=== PATIENT | female | born 1985 | race Caucasian/White ===

== ENCOUNTER 2017-12-29 09:38 | Emergency (ER) | payer SELFPAY ==
[2017-12-29] MEDS ORDERED: ONDANSETRON 4 MG/2 ML VIAL ONE ×2 (10:59→11:48)
[2017-12-29] MEDS ORDERED: MORPHINE 4 MG/ML SYR ONE (10:59)
[2017-12-29] MEDS ORDERED: NA CHLORIDE 0.9% 1,000 ML ONE (10:59)
[2017-12-29 11:03] LABS: Urine Blood NEGATIVE (NEG); Urine Glucose NEGATIVE (NEG); Urine Protein NEGATIVE (NEG)
[2017-12-29 11:24] LABS: Absolute Lymphocytes (CBC) 1.8 K/uL (0.7-4.9); Absolute Monocytes 0.5 K/uL (0.1-1.3); Absolute Neutrophil 6.7 K/uL (1.8-8.0); Basophils % 0.5 % (0-1.3); Eosinophils % 1.5 % (0-4.4); Hematocrit 43.5 % (36.0-45.0); Lymphocytes % 19.4 % (15.3-44.8); MCH 30.4 pg (27.0-35.0); MCV 89.8 fL (80-100); MPV 8.4 fL (7.6-11.3); Monocytes % 5.4 % (3.3-12.3); RBC Red Blood Cell Count 4.85 M/uL (3.86-4.86)
[2017-12-29 11:46] LABS: ALT/SGPT 23 U/L (12-78); AST/SGOT 15 U/L (15-37); Albumin 4.1 g/dL (3.4-5.0); Alkaline Phosphatase 58 U/L (45-117); Amylase Level 38 U/L (25-115); BUN Blood Urea Nitrogen 15 mg/dL (7-18); Bicarbonate 29 mmol/L (21-32); Bilirubin Direct 0.1 mg/dL (0-0.2); Bilirubin Total 0.5 mg/dL (0.2-1.0); Glucose Level 101 mg/dL (74-106); Lipase 53 U/L (73-393); Potassium 4.2 mmol/L (3.5-5.1); Sodium Level 139 mmol/L (136-145)
[2017-12-29] MEDS ORDERED: KETOROLAC 30 MG/ML INJ ONE (11:48)
[2017-12-29] MEDS ORDERED: HYDROMORPHONE HCL 1 MG/ML INJ ONE ×2 (11:48→12:25)
--- NOTE | 2017-12-29 12:08 | RAD REPORT ---
EXAM DESCRIPTION: US - Transvaginal Study Probe - 12/29/2017 11:59 am CLINICAL HISTORY: ABD PAIN Pelvic pain. COMPARISON: Transvaginal Study Probe dated 08/24/2016 FINDINGS: The uterus is normal in size, shape and echotexture. The uterus measures 8.8 x 5.8 x 4.6 c m. The endometrial stripe measures 10 mm, normal. Both ovaries are normal in size, shape and echotexture. The right ovary measures 2.9 x 2.3 x 2.3 cm. The left ovary measures 4.1 x 3.7 x 3.4 cm. Circumscribed left ovarian lesion is present with low-l evel internal echoes measuring 3.2 x 3.0 cm, probably a hemorrhagic cyst or endometrioma. No adnexal masses. Normal Doppler blood flow was demonstrated to both ovaries. No significant pelvic ascites. IMPRESSION: 3.2 x 3.0 cm left ovarian cyst versus endometrioma.
--- NOTE | 2017-12-29 12:09 | ER ---
Nurse's Notes [facility] Name: Felicia York Age: 32 yrs Sex: Female : 1985 Arrival Date: 12/29/2017 Time: 09:40 Bed 7 Private MD: Josh Juarez H Diagnosis: Abdominal tenderness;Other and unspecified ovarian cysts-left hemorrhagic Presentation: 12/29 09:45 Presenting complaint: Patient states: lower abd pain started Friday. Hx of sv endometriosis. c/o nausea. Reports taking her Tramadol yesterday with no relief. Transition of care: patient was not received from another setting of care. Onset of symptoms was December 27, 2017. Risk Assessment: Do you want to hurt yourself or someone else? Patient reports no desire to harm self or others. Initial Sepsis Screen: Does the patient meet any 2 criteria? No. Patient's initial sepsis screen is negative. Does the patient have a suspected source of infection? No. Patient's initial sepsis screen is negative. Care prior to arrival: None. 09:45 Method Of Arrival: Ambulatory sv 09:45 Acuity: COMPA 3 sv Triage Assessment: 09:45 General: Appears uncomfortable, well groomed, well developed, Behavior is calm, sv cooperative, appropriate for age. Pain: Complains of pain in abdomen and left lower quadrant and right lower quadrant and suprapubic area Pain currently is 7 out of 10 on a pain scale. Pain began Friday Is continuous, Current management is with tramadol. EENT: No signs and/or symptoms were reported regarding the EENT system. Neuro: Level of Consciousness is awake, alert, obeys commands, Oriented to person, place, time, situation, Moves all extremities. Full function Gait is steady. Cardiovascular: Patient's skin is warm and dry. Respiratory: Respiratory effort is even, unlabored, Respiratory pattern is regular, symmetrical. GI: Abdomen is flat, non-distended, Abd is soft X 4 quads Abdomen is tender to palpation in suprapubic area, right lower quadrant and left lower quadrant. Derm: Skin is normal. 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 - Social history:: Smoking status: Patient uses tobacco products, smokes one-half pack cigarettes per day, Patient uses alcohol, but reports only rare drinking. Patient/guardian denies using street drugs, IV drugs. - Ebola Screening: : No symptoms or risks identified at this time. - Family history:: not pertinent. Screenin:03 Abuse screen: Denies threats or abuse. Denies injuries from another. Nutritional sv screening: No deficits noted. Tuberculosis screening: No symptoms or risk factors identified. Fall Risk None identified. Assessment: 11:05 Reassessment: Patient appears in no apparent distress at this time. No changes from sv previously documented assessment. Patient and/or family updated on plan of care and expected duration. Pain level reassessed. Patient is alert, oriented x 3, equal unlabored respirations, skin warm/dry/pink. 11:45 Reassessment: Patient appears in no apparent distress at this time. No changes from sv previously documented assessment. Patient and/or family updated on plan of care and expected duration. Pain level reassessed. Patient is alert, oriented x 3, equal unlabored respirations, skin warm/dry/pink. 13:00 Reassessment: Patient appears in no apparent distress at this time. No changes from sv previously documented assessment. Patient and/or family updated on plan of care and expected duration. Pain level reassessed. Patient is alert, oriented x 3, equal unlabored respirations, skin warm/dry/pink. Vital Signs: 10:02 BP 154 / 96; Pulse 94; Resp 18; Temp 98.7; Pulse Ox 100% ; Weight 95.25 kg; Height 5 sv ft. 8 in. (172.72 cm); Pain 7/10; 11:17 BP 139 / 99; Pulse 105; Resp 20; Pulse Ox 100% ; Pain 7/10; sv 11:45 Pain 7/10; sv 12:00 BP 141 / 98; Pulse 87; Resp 18; Pulse Ox 100% ; sv 10:02 Body Mass Index 31.93 (95.25 kg, 172.72 cm) sv ED Course: 09:40 Patient arrived in ED. sb2 09:40 Josh Juarez DO is Private Physician. sb2 09:45 Arm band placed on right wrist. sv 09:45 Patient has correct armband on for positive identification. Bed in low position. Call sv light in reach. Pulse ox on. NIBP on. Door closed. Head of bed elevated. 09:59 See Rosario MD is Attending Physician. haydee 09:59 Em Bustos, AMI is Primary Nurse. sv 10:01 Triage completed. sv 10:56 Patient taken to ultrasound. aa4 11:05 Initial lab(s) drawn, by me, sent to lab. Inserted saline lock: 20 gauge in right sv antecubital area, using aseptic technique. Blood collected. Flushed right antecubital with 5 ml normal saline. 11:44 Ultrasound completed. aa4 11:59 US Transvaginal Study (Probe) In Process Unspecified. EDMS 12:08 Josh Juarez DO is Referral Physician. haydee 12:08 Sudha Kahn MD is Referral Physician. haydee 13:43 No provider procedures requiring assistance completed. IV discontinued, intact, ss bleeding controlled, No redness/swelling at site. Pressure dressing applied. Administered Medications: 11:06 Drug: Zofran 4 mg Route: IVP; Site: right antecubital; sv 11:45 Follow up: Response: No adverse reaction sv 11:06 Drug: NS 0.9% 1000 ml Route: IV; Rate: 1 bolus; Site: right antecubital; sv 12:00 Follow up: Response: No adverse reaction; IV Status: Completed infusion; IV Intake: sv 1000ml 11:08 Drug: morphine 4 mg Route: IVP; Site: right antecubital; sv 11:45 Follow up: Pain 7/10 Adult; Response: No adverse reaction sv 11:48 Drug: Zofran 4 mg Route: IVP; Site: right antecubital; sv 12:00 Follow up: Response: No adverse reaction sv 11:50 Drug: Dilaudid 1 mg Route: IVP; Site: right antecubital; sv 12:00 Follow up: Response: No adverse reaction sv 11:52 Drug: TORadol 30 mg Route: IVP; Site: right antecubital; sv 12:00 Follow up: Response: No adverse reaction sv 12:25 Drug: Dilaudid 1 mg Route: IVP; Site: right antecubital; sv 12:45 Follow up: Response: No adverse reaction sv Intake: 12:00 IV: 1000ml; Total: 1000ml. sv Outcome: 12:08 Discharge ordered by . haydee 13:43 Discharged to home ambulatory. ss 13:43 Condition: good 13:43 Discharge instructions given to patient, Instructed on discharge instructions, follow up and referral plans. medication usage, Demonstrated understanding of instructions, follow-up care, medications, Prescriptions given X 3. 13:44 Patient left the ED. ss Signatures: Dispatcher [employer] Em Sher, RN RN See Garduno MD MD cha Frazier, Amanda aa4 Madiha Mata RN RN ss Cherelle Sanchez sb2 Corrections: (The following items were deleted from the chart) 11:15 10:04 Inserted saline lock: 20 gauge in right antecubital area, using aseptic sv technique. ,using aseptic technique. done by Paco mccollum Blood collected. sv
--- NOTE | 2017-12-29 12:09 | EDPHYS ---
Physician Documentation [facility] Name: Felicia York Age: 32 yrs Sex: Female : 1985 Arrival Date: 12/29/2017 Time: 09:40 Bed 7 Private MD: Josh Juarez H ED Physician See Rosario HPI: 12/29 10:54 This 32 yrs old Female presents to ER via Ambulatory with complaints of haydee Abdominal Pain. 10:54 The patient presents with abdominal pain in the lower abdomen. Onset: The haydee symptoms/episode began/occurred just prior to arrival. The patient presents with pelvic pain, that is located in/on the suprapubic area, right lower quadrant and left lower quadrant. Onset: The symptoms/episode began/occurred this morning. Modifying factors: The symptoms are alleviated by nothing, the symptoms are aggravated by nothing. Associated signs and symptoms: The patient has no apparent associated signs or symptoms. Severity of symptoms: At their worst the symptoms were moderate, in the emergency department the symptoms are unchanged. 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 - Social history:: Smoking status: Patient uses tobacco products, smokes one-half pack cigarettes per day, Patient uses alcohol, but reports only rare drinking. Patient/guardian denies using street drugs, IV drugs. - Ebola Screening: : No symptoms or risks identified at this time. - Family history:: not pertinent. ROS: 10:54 Constitutional: Negative for fever, chills, and weight loss, Eyes: Negative for injury, haydee pain, redness, and discharge, ENT: Negative for injury, pain, and discharge, Neck: Negative for injury, pain, and swelling, Cardiovascular: Negative for chest pain, palpitations, and edema, Respiratory: Negative for shortness of breath, cough, wheezing, and pleuritic chest pain, Back: Negative for injury and pain, : Negative for injury, bleeding, discharge, and swelling, MS/Extremity: Negative for injury and deformity, Skin: Negative for injury, rash, and discoloration, Neuro: Negative for headache, weakness, numbness, tingling, and seizure. 10:54 Abdomen/GI: Positive for abdominal pain, of the suprapubic area, right lower quadrant and left lower quadrant. Exam: 10:54 Constitutional: This is a well developed, well nourished patient who is awake, alert, haydee and in no acute distress. Head/Face: Normocephalic, atraumatic. Eyes: Pupils equal round and reactive to light, extra-ocular motions intact. Lids and lashes normal. Conjunctiva and sclera are non-icteric and not injected. Cornea within normal limits. Periorbital areas with no swelling, redness, or edema. ENT: Nares patent. No nasal discharge, no septal abnormalities noted. Tympanic membranes are normal and external auditory canals are clear. Oropharynx with no redness, swelling, or masses, exudates, or evidence of obstruction, uvula midline. Mucous membranes moist. Neck: Trachea midline, no thyromegaly or masses palpated, and no cervical lymphadenopathy. Supple, full range of motion without nuchal rigidity, or vertebral point tenderness. No Meningismus. Chest/axilla: Normal chest wall appearance and motion. Nontender with no deformity. No lesions are appreciated. Cardiovascular: Regular rate and rhythm with a normal S1 and S2. No gallops, murmurs, or rubs. Normal PMI, no JVD. No pulse deficits. Respiratory: Lungs have equal breath sounds bilaterally, clear to auscultation and percussion. No rales, rhonchi or wheezes noted. No increased work of breathing, no retractions or nasal flaring. Back: No spinal tenderness. No costovertebral tenderness. Full range of motion. Female : Normal external genitalia. Skin: Warm, dry with normal turgor. Normal color with no rashes, no lesions, and no evidence of cellulitis. MS/ Extremity: Pulses equal, no cyanosis. Neurovascular intact. Full, normal range of motion. Neuro: Awake and alert, GCS 15, oriented to person, place, time, and situation. Cranial nerves II-XII grossly intact. Motor strength 5/5 in all extremities. Sensory grossly intact. Cerebellar exam normal. Normal gait. Psych: Awake, alert, with orientation to person, place and time. Behavior, mood, and affect are within normal limits. 10:54 Abdomen/GI: Inspection: distension, Bowel sounds: normal, Palpation: moderate abdominal tenderness, in the suprapubic area, right lower quadrant and left lower quadrant. Vital Signs: 10:02 BP 154 / 96; Pulse 94; Resp 18; Temp 98.7; Pulse Ox 100% ; Weight 95.25 kg; Height 5 sv ft. 8 in. (172.72 cm); Pain 7/10; 11:17 BP 139 / 99; Pulse 105; Resp 20; Pulse Ox 100% ; Pain 7/10; sv 11:45 Pain 7/10; sv 12:00 BP 141 / 98; Pulse 87; Resp 18; Pulse Ox 100% ; sv 10:02 Body Mass Index 31.93 (95.25 kg, 172.72 cm) sv MDM: 09:59 Patient medically screened. [facility] 10:56 Data reviewed: vital signs, nurses notes, lab test result(s), radiologic studies, haydee ultrasound. 12/29 10:54 Order name: Amylase, Serum; Complete Time: 12:07 [facility] 12/29 10:54 Order name: Basic Metabolic Panel; Complete Time: 12:07 [facility] 12/29 10:54 Order name: CBC with Diff; Complete Time: 12:07 [facility] 12/29 10:54 Order name: Creatinine for Radiology; Complete Time: 12:07 [facility] 12/29 10:54 Order name: Hepatic Function; Complete Time: 12:07 [facility] 12/29 10:54 Order name: Lipase; Complete Time: 12:07 [facility] 12/29 10:54 Order name: Urine Microscopic Only 12/29 10:54 Order name: US Transvaginal Study (Probe) [facility] 12/29 10:56 Order name: Urine Dipstick--Ancillary (enter results); Complete Time: 11:43 ag 12/29 10:56 Order name: Urine --Ancillary (enter results); Complete Time: 11:43 ag 12/29 10:54 Order name: Urine Test (obtain specimen); Complete Time: 10:55 [facility] 12/29 10:54 Order name: IV Saline Lock; Complete Time: 11:14 [facility] 12/29 10:54 Order name: Labs collected and sent; Complete Time: 11:14 [facility] 12/29 10:54 Order name: Urine Dipstick-Ancillary (obtain specimen); Complete Time: 10:55 haydee Administered Medications: 11:06 Drug: Zofran 4 mg Route: IVP; Site: right antecubital; sv 11:45 Follow up: Response: No adverse reaction sv 11:06 Drug: NS 0.9% 1000 ml Route: IV; Rate: 1 bolus; Site: right antecubital; sv 12:00 Follow up: Response: No adverse reaction; IV Status: Completed infusion; IV Intake: sv 1000ml 11:08 Drug: morphine 4 mg Route: IVP; Site: right antecubital; sv 11:45 Follow up: Pain 7/10 Adult; Response: No adverse reaction sv 11:48 Drug: Zofran 4 mg Route: IVP; Site: right antecubital; sv 12:00 Follow up: Response: No adverse reaction sv 11:50 Drug: Dilaudid 1 mg Route: IVP; Site: right antecubital; sv 12:00 Follow up: Response: No adverse reaction sv 11:52 Drug: TORadol 30 mg Route: IVP; Site: right antecubital; sv 12:00 Follow up: Response: No adverse reaction sv 12:25 Drug: Dilaudid 1 mg Route: IVP; Site: right antecubital; sv 12:45 Follow up: Response: No adverse reaction sv Disposition: 12/29/17 12:08 Discharged to Home. Impression: Abdominal tenderness, Other and unspecified ovarian cysts - left hemorrhagic. - Condition is Stable. - Discharge Instructions: Abdominal Pain, Adult, Ovarian Cyst, Abdominal Pain, Adult, [id number], Ovarian Cyst, [id number]. - Prescriptions for Ibuprofen 600 mg Oral Tablet - take 1 tablet by ORAL route every 6 hours As needed take with food; 25 tablet. Tylenol- Codeine #3 300-30 mg Oral Tablet - take 2 tablet by ORAL route every 6 hours As needed; 30 tablet. Zofran 4 mg Oral Tablet - take 1 tablet by ORAL route every 12 hours As needed; 12 tablet. - Medication Reconciliation Form, Thank You Letter, Antibiotic Education, Prescription Opioid Use, Work release form form. - Follow up: Josh Juarez; When: 2 - 3 days; Reason: Recheck today's complaints, Continuance of care, Re-evaluation by your physician. Follow up: Sudha Kahn; When: 2 - 3 days; Reason: Recheck today's complaints, Continuance of care, Re-evaluation by your physician. - Problem is new. - Symptoms have improved. Signatures: Dispatcher [employer] Em Sher, RN RN See Garduno MD MD cha Smirch, Shelby, RN RN ss Corrections: (The following items were deleted from the chart) 13:44 12:08 12/29/2017 12:08 Discharged to Home. Impression: Abdominal tenderness; Other and ss unspecified ovarian cysts - left hemorrhagic. Condition is Stable. Discharge Instructions: Abdominal Pain, Adult, Ovarian Cyst, Abdominal Pain, Adult, [id number], Ovarian Cyst, [id number]. Prescriptions for Ibuprofen 600 mg Oral Tablet - take 1 tablet by ORAL route every 6 hours As needed take with food; 25 tablet, Tylenol-Codeine #3 300-30 mg Oral Tablet - take 2 tablet by ORAL route every 6 hours As needed; 30 tablet. and Forms are Medication Reconciliation Form, Thank You Letter, Antibiotic Education, Prescription Opioid Use. Follow up: Josh Juarez; When: 2 - 3 days; Reason: Recheck today's complaints, Continuance of care, Re-evaluation by your physician. Follow up: Sudha Kahn; When: 2 - 3 days; Reason: Recheck today's complaints, Continuance of care, Re-evaluation by your physician. Problem is new. Symptoms have improved. haydee
[2017-12-29 13:24] LABS: Urine Bacteria <20 /HPF (<20); Urine Culture Reflex Order NOT NEEDED; Urine RBC <5 /HPF (NONE SEEN)
[2017-12-29 14:02] VITALS: TEMP 98.7; O2SAT 100
[2017-12-29 14:06] VITALS: BP 141/98
== END 2017-12-29 13:44 | disposition home or self-care (01) ==
LOC: ER 09:38
DX: R10.9 Unspecified abdominal pain (principal); N83.202 Unspecified ovarian cyst, left side; F17.210 Nicotine dependence, cigarettes, uncomplicated
CPT/HCPCS: 36415; 76830; 80048; 80076; 81003; 81015; 81025; 82150; 83690; 85025; 96361; 96374; 96375; 99284; J1170; J2405; J7030

== ENCOUNTER 2018-01-13 21:13 | Emergency (ER) | payer SELFPAY ==
[2018-01-13 22:18] LABS: Urine Blood TRACE (NEG); Urine Glucose NEGATIVE (NEG); Urine Protein 1+ (NEG); Urine Specific Gravity >1.030 (1.005-1.030)
[2018-01-13] MEDS ORDERED: ONDANSETRON 4 MG/2 ML VIAL ONE (22:19)
[2018-01-13] MEDS ORDERED: MORPHINE 4 MG/ML SYR ONE (22:19)
[2018-01-13 22:35] LABS: Absolute Lymphocytes (CBC) 2.6 K/uL (0.7-4.9); Absolute Monocytes 0.5 K/uL (0.1-1.3); Absolute Neutrophil 6.5 K/uL (1.8-8.0); Basophils % 0.6 % (0-1.3); Eosinophils % 2.2 % (0-4.4); Hematocrit 45.6 % (36.0-45.0); Lymphocytes % 26.3 % (15.3-44.8); MCH 30.9 pg (27.0-35.0); MCV 90.5 fL (80-100); Monocytes % 5.4 % (3.3-12.3); RBC Red Blood Cell Count 5.03 M/uL (3.86-4.86)
[2018-01-13 22:55] LABS: Albumin 4.2 g/dL (3.4-5.0); Bilirubin Direct 0.1 mg/dL (0-0.2); Bilirubin Total 0.5 mg/dL (0.2-1.0); Potassium 3.7 mmol/L (3.5-5.1); Protein, Total 8.3 g/dL (6.4-8.2)
[2018-01-13] MEDS ORDERED: KETOROLAC 30 MG/ML INJ ONE (22:57)
[2018-01-13 23:08] LABS: Urine Amorphous Sediment TRACE /HPF (NONE SEEN); Urine Bacteria >50 /HPF (<20); Urine Culture Reflex Order NOT NEEDED; Urine Mucus HEAVY /HPF (NONE SEEN); Urine RBC <5 /HPF (NONE SEEN)
--- NOTE | 2018-01-14 00:11 | EDPHYS ---
Physician Documentation [facility] Name: Felicia York Age: 32 yrs Sex: Female : 1985 Arrival Date: 01/13/2018 Time: 21:14 Bed 25 Private MD: Josh Juarez H ED Physician See Rosario HPI: 01/13 21:26 This 32 yrs old Female presents to ER via Ambulatory with complaints of Cyst. jmm 21:26 The patient presents with pelvic pain. Onset: The symptoms/episode began/occurred jmm gradually, 2 week(s) ago. Associated signs and symptoms: Pertinent negatives: fever. This is a 32 year old female with a history of endometriosis that presents to the with pelvic pain, worse on the left. Patient was diagnosed with an ovarian cyst 2 weeks ago and states the symptoms have worsened. 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 - Social history:: Smoking status: Patient/guardian denies using tobacco. - Ebola Screening: : No symptoms or risks identified at this time. ROS: 22:20 Constitutional: Negative for fever, chills, and weight loss, Cardiovascular: Negative jm for chest pain, palpitations, and edema, Respiratory: Negative for shortness of breath, cough, wheezing, and pleuritic chest pain, Abdomen/GI: Negative for abdominal pain, nausea, vomiting, diarrhea, and constipation. 22:20 Back: Positive for pain at rest, radiated pain. 22:20 : Positive for urinary symptoms, pelvic pain. 22:20 All other systems are negative. Exam: 22:20 Head/Face: atraumatic. Chest/axilla: Normal chest wall appearance and motion. jm Cardiovascular: Regular rate and rhythm. No edema appreciated Respiratory: Normal respirations, no respiratory distress appreciated 22:20 Constitutional: The patient appears alert, awake, anxious, uncomfortable. 22:20 Abdomen/GI: Inspection: abdomen appears normal, Bowel sounds: normal, Palpation: soft, mild abdominal tenderness, in the suprapubic area. 22:20 Back: ROM is normal, CVA tenderness, is absent, is noted bilaterally. 22:20 Skin: Appearance: Color: normal in color. 22:20 Neuro: Orientation: is normal, Mentation: is normal, Memory: is normal. 22:20 Psych: Behavior/mood is pleasant, cooperative, anxious. Vital Signs: 21:27 BP 149 / 100; Pulse 88; Resp 16; Temp 97.6; Pulse Ox 99% on R/A; Weight 95.71 kg; kr2 Height 5 ft. 8 in. (172.72 cm); Pain 6/10; 23:02 BP 150 / 96; Pulse 95; Resp 20; Pulse Ox 100% on R/A; fc 01/14 00:19 BP 148 / 92; Pulse 92; Resp 16; Pulse Ox 100% on R/A; kr2 01/13 21:27 Body Mass Index 32.08 (95.71 kg, 172.72 cm) [facility] MDM: 01/13 21:26 Patient medically screened. [facility] 01/14 00:09 Data reviewed: vital signs, nurses notes, lab test result(s), radiologic studies, [facility] ultrasound. Counseling: I had a detailed discussion with the patient and/or guardian regarding: the historical points, exam findings, and any diagnostic results supporting the discharge/admit diagnosis, the presence of at least one elevated blood pressure reading (>120/80) during this emergency department visit, lab results, radiology results, the need for outpatient follow up, to return to the emergency department if symptoms worsen or persist or if there are any questions or concerns that arise at home. 01/13 21:57 Order name: Urine Dipstick--Ancillary (enter results); Complete Time: 22:36 [facility] 01/13 21:57 Order name: Urine --Ancillary (enter results); Complete Time: 22:36 [facility] 01/13 22:12 Order name: Amylase, Serum; Complete Time: 22:56 [facility] 01/13 22:12 Order name: Basic Metabolic Panel; Complete Time: 22:56 [facility] 01/13 22:12 Order name: CBC with Diff; Complete Time: 22:37 [facility] 01/13 22:12 Order name: Creatinine for Radiology; Complete Time: 22:56 [facility] 01/13 22:12 Order name: Hepatic Function; Complete Time: 22:56 [facility] 01/13 22:12 Order name: Lipase; Complete Time: 22:56 [facility] 01/13 22:12 Order name: Urine Microscopic Only; Complete Time: 23:29 [facility] 01/13 22:14 Order name: Transvaginal Study Probe [facility] 01/13 22:12 Order name: Urine Test (obtain specimen); Complete Time: 22:16 [facility] 01/13 22:12 Order name: IV Saline Lock; Complete Time: 22:24 [facility] 01/13 22:12 Order name: Labs collected and sent; Complete Time: 22:24 [facility] 01/13 22:12 Order name: Urine Dipstick-Ancillary (obtain specimen); Complete Time: 22:16 [facility] Administered Medications: 01/13 22:22 Drug: Zofran 4 mg Route: IVP; Site: left forearm; kr2 23:00 Follow up: Response: No adverse reaction kr2 22:24 Drug: morphine 4 mg Route: IVP; Site: left forearm; 2 01/14 00:05 Follow up: Response: No adverse reaction; Pain is decreased [facility] 01/13 22:55 Drug: TORadol 30 mg Route: IVP; Site: left antecubital; 01/14 00:06 Follow up: Response: No adverse reaction; Pain is unchanged, physician notified 2 01/13 23:02 CANCELLED (Duplicate Order): Ketorolac 30 mg IVP once 01/14 00:11 Drug: morphine 4 mg Route: IM; Site: left deltoid; kr2 00:18 Follow up: Response: No adverse reaction kr2 Disposition: 06:39 Co-signature as Attending Physician, See Rosario MD I agree with the assessment and haydee plan of care. Disposition: 01/14/18 00:10 Discharged to Home. Impression: Urinary tract infection, site not specified, pelvic pain. - Condition is Stable. - Discharge Instructions: Pelvic Pain, Female, Urinary Tract Infection, Adult. - Prescriptions for Ultracet 37.5- 325 mg Oral Tablet - take 1 tablet by ORAL route every 6 hours - for up to 5 days; do not exceed 8 tablets per day.; 20 tablet. Cipro 500 mg Oral Tablet - take 1 tablet by ORAL route every 12 hours for 7 days; 20 tablet. - Medication Reconciliation Form, Thank You Letter, Antibiotic Education, Prescription Opioid Use form. - Follow up: Ann, DO Josh; When: 2 - 3 days; Reason: Recheck today's complaints, Continuance of care, Re-evaluation by your physician. Signatures: Dispatcher [employer] EDMS See Rosario MD MD cha Mickail, Joel, PA PA jmm Chretien, Felicia, RN RN Faye Miramontes RN RN kr2 Corrections: (The following items were deleted from the chart) 01/13 22:14 22:12 Pelvis Complete+US.RAD.BRZ ordered. [facility] 23:02 22:51 Ketorolac 30 mg IVP once ordered. dmitriy 01/14 00:20 00:10 01/14/2018 00:10 Discharged to Home. Impression: Urinary tract infection, site kr2 not specified; pelvic pain. Condition is Stable. Forms are Medication Reconciliation Form, Thank You Letter, Antibiotic Education, Prescription Opioid Use. Follow up: Josh Juarez; When: 2 - 3 days; Reason: Recheck today's complaints, Continuance of care, Re-evaluation by your physician. dmitriy
--- NOTE | 2018-01-14 00:11 | ER ---
Nurse's Notes [facility] Name: Felicia York Age: 32 yrs Sex: Female : 1985 Arrival Date: 01/13/2018 Time: 21:14 Bed 25 Private MD: Josh Juarez H Diagnosis: Urinary tract infection, site not specified;pelvic pain Presentation: 01/13 21:25 Presenting complaint: Patient states: I was seen here 2 weeks ago and have an ovarian kr2 cyst. The pain has continually gotten worse and I am having problems urinating along with low back pain. Transition of care: patient was not received from another setting of care. Onset of symptoms was December 30, 2017. Risk Assessment: Do you want to hurt yourself or someone else? Patient reports no desire to harm self or others. Initial Sepsis Screen: Does the patient meet any 2 criteria? No. Patient's initial sepsis screen is negative. Does the patient have a suspected source of infection? No. Patient's initial sepsis screen is negative. Care prior to arrival: None. 21:25 Method Of Arrival: Ambulatory kr2 21:25 Acuity: COMPA 3 kr2 Triage Assessment: 21:32 General: Appears in no apparent distress. uncomfortable, well groomed, well developed, kr2 well nourished, Behavior is cooperative, appropriate for age, restless. Pain: Complains of pain in left femoral area, suprapubic area and left inguinal area Pain currently is 10 out of 10 on a pain scale. Quality of pain is described as aching, pressure, tender, Is continuous, Alleviated by nothing. 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 - Social history:: Smoking status: Patient/guardian denies using tobacco. - Ebola Screening: : No symptoms or risks identified at this time. Screenin:32 Abuse screen: Denies threats or abuse. Denies injuries from another. Nutritional kr2 screening: No deficits noted. Tuberculosis screening: No symptoms or risk factors identified. Fall Risk None identified. Assessment: 21:34 General: Appears in no apparent distress. uncomfortable, Behavior is cooperative, kr2 appropriate for age, restless. Pain: Complains of pain in see triage assessment. Neuro: Level of Consciousness is awake, alert, obeys commands, Oriented to person, place, time, situation. Cardiovascular: Capillary refill < 3 seconds in bilateral fingers Patient's skin is warm and dry. Respiratory: Airway is patent Respiratory effort is even, unlabored, Respiratory pattern is regular, symmetrical. GI: Abdomen is flat, non-distended, Reports bloating. : Reports urinary frequency. EENT: Oral mucosa is moist. Derm: Skin is intact, is healthy with good turgor, Skin is pink, warm \T\ dry. Musculoskeletal: Circulation, motion, and sensation intact. 22:51 Reassessment: Pt complaining of pain after having ultrasound. Discussed with Sudhakar JUARES and pt to get Toradol IV. 01/14 00:19 Reassessment: Patient appears in no apparent distress at this time. Patient and/or kr2 family updated on plan of care and expected duration. Pain level reassessed. Patient is alert/active/playful, equal unlabored respirations, skin warm/dry/pink. Patient states feeling better. Vital Signs: 01/13 21:27 BP 149 / 100; Pulse 88; Resp 16; Temp 97.6; Pulse Ox 99% on R/A; Weight 95.71 kg; kr2 Height 5 ft. 8 in. (172.72 cm); Pain 6/10; 23:02 BP 150 / 96; Pulse 95; Resp 20; Pulse Ox 100% on R/A; fc 01/14 00:19 BP 148 / 92; Pulse 92; Resp 16; Pulse Ox 100% on R/A; kr2 01/13 21:27 Body Mass Index 32.08 (95.71 kg, 172.72 cm) kr2 ED Course: 01/13 21:14 Patient arrived in ED. es 21:14 Josh Juarez DO is Private Physician. es 21:24 Sudhakar Pryor PA is PHCP. [facility] 21:24 See Rosario MD is Attending Physician. [facility] 21:25 Faye España, RN is Primary Nurse. kr2 21:27 Triage completed. kr2 21:32 Arm band placed on. kr2 21:33 Patient has correct armband on for positive identification. Bed in low position. Call kr2 light in reach. Side rails up X 1. Pulse ox on. NIBP on. Door closed. Head of bed elevated. 22:15 Patient taken to ultrasound. via wheelchair. aa4 22:15 Inserted saline lock: 20 gauge in left antecubital area, using aseptic technique. Blood jp3 collected. 22:20 Initial lab(s) drawn, by me, sent to lab. Urine collected: clean catch specimen, clear, jp3 edgar colored. 22:28 Urine Microscopic Only Sent. jp3 22:28 Amylase, Serum Sent. jp3 22:28 Basic Metabolic Panel Sent. jp3 22:28 CBC with Diff Sent. jp3 22:28 Creatinine for Radiology Sent. jp3 22:28 Hepatic Function Sent. jp3 22:28 Lipase Sent. jp3 22:34 Ultrasound completed. Patient tolerated well. Patient moved back from ultrasound. aa4 22:35 Transvaginal Study Probe In Process Unspecified. EDMS 23:02 IV discontinued, intact, bleeding controlled, No redness/swelling at site. Pressure fc dressing applied, swollen after being flushed. 01/14 00:09 Josh Juarez DO is Referral Physician. [facility] 00:18 No provider procedures requiring assistance completed. kr2 Administered Medications: 01/13 22:22 Drug: Zofran 4 mg Route: IVP; Site: left forearm; kr2 23:00 Follow up: Response: No adverse reaction kr2 22:24 Drug: morphine 4 mg Route: IVP; Site: left forearm; kr2 01/14 00:05 Follow up: Response: No adverse reaction; Pain is decreased kr2 01/13 22:55 Drug: TORadol 30 mg Route: IVP; Site: left antecubital; 01/14 00:06 Follow up: Response: No adverse reaction; Pain is unchanged, physician notified kr2 01/13 23:02 CANCELLED (Duplicate Order): Ketorolac 30 mg IVP once 01/14 00:11 Drug: morphine 4 mg Route: IM; Site: left deltoid; kr2 00:18 Follow up: Response: No adverse reaction kr2 Outcome: 00:10 Discharge ordered by MD. izaguirre 00:18 Discharged to home ambulatory, with friend. kr2 00:18 Condition: good 00:18 Discharge instructions given to patient, Instructed on discharge instructions, follow up and referral plans. medication usage, Demonstrated understanding of instructions, follow-up care, medications, Prescriptions given X 2. 00:20 Patient left the ED. kr2 Signatures: Dispatcher [employer] EDMS Sudhakar Pryor PA PA jmm Salyer, Edna es Chretien, Felicia RN RN Leann Chaidez aa4 Faye España RN RN kr2 Khurram Reyes jp3 Corrections: (The following items were deleted from the chart) 00:06 08/07 23:00 Response: No adverse reaction; Pain is decreased kr2 kr2 [id number] 00:20 00:18 Discharged to home ambulatory, kr2 kr2 00:20 00:18 Discharge instructions given to patient, Instructed on discharge instructions, kr2 follow up and referral plans. medication usage, Demonstrated understanding of instructions, follow-up care, medications, Prescriptions given X 2, kr2
[2018-01-14] MEDS ORDERED: MORPHINE 4 MG/ML SYR ONE (00:12)
[2018-01-14 00:23] VITALS: TEMP 97.6
[2018-01-14 00:24] VITALS: O2SAT 100
[2018-01-14 00:26] VITALS: BP 148/92
--- NOTE | 2018-01-14 08:30 | RAD REPORT ---
EXAM DESCRIPTION: US - Transvaginal Study Probe - 01/13/2018 10:35 pm CLINICAL HISTORY: Pelvic pain Preliminary findings provided at the time of the study COMPARISON: December 29, 2017 TECHNIQUE: Endovaginal sonography was performed. FINDINGS: Endometrium is 6- 7 mm with no mass, polyp or abnormal fluid collection. Endometrium-myome trium interface is preserved. No myometrial masses are identified. Uterus is approximately 8.5 x 4.2 x 4.7 cm. 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 No right ovary or right adnexal abnormality. Right ovary is 3.2 x 1.8 x 2.6 cm. Left ovary is 3.4 x 2.1 x 2.2 cm. A 15 x 11 mm hypoechoic oval-shaped mass is present in the left ova ry. This is believed to be the remnant of the hemorrhagic cyst seen December 29. No progressive left ov prince or left adnexal finding. No free fluid seen. Doppler evaluation shows normal blood flow in the ovarian stroma. IMPRESSION: 15 millimeter remnant hemorrhagic cyst decreased from the December 29 study. No new or progressive uterine, ovarian or adnexal finding.
== END 2018-01-14 00:20 | disposition home or self-care (01) ==
LOC: ER 21:13
DX: N39.0 Urinary tract infection, site not specified (principal)
CPT/HCPCS: 36415; 76830; 80048; 80076; 81003; 81015; 81025; 82150; 83690; 85025; 96372; 99284; J2405

== ENCOUNTER 2018-06-23 08:16 | Emergency (ER) | payer SELFPAY ==
[2018-06-23] MEDS ORDERED: LIDOCAINE 1% W/EPI 1:100,000 MDV 50 ML VIAL ONE (08:40)
[2018-06-23] MEDS ORDERED: TETANUS & DIPHTHERIA TOX,ADULT 0.5 ML VIAL ONE (08:41)
--- NOTE | 2018-06-23 09:09 | ER ---
Nurse's Notes [facility] Name: Felicia York Age: 32 yrs Sex: Female : 1985 Arrival Date: 06/23/2018 Time: 08:19 Bed 15 Private MD: Josh Juarez H Diagnosis: Laceration without foreign body of scalp;Tetanus prophylaxis Presentation: 06/23 08:26 Presenting complaint: Patient states: i hit my head on a baby gate and had lacerated, hj happened Friday, i think its more than 30 hours now; visible laceration on forehead about less than 2 inches; reports headache;. Transition of care: patient was not received from another setting of care. Complicating Factors: There are no complicating factors for this patient. Onset of symptoms was May 21, 2018. Risk Assessment: Do you want to hurt yourself or someone else? Patient reports no desire to harm self or others. Initial Sepsis Screen: Does the patient meet any 2 criteria? No. Patient's initial sepsis screen is negative. Does the patient have a suspected source of infection? No. Patient's initial sepsis screen is negative. Care prior to arrival: None. 08:26 Method Of Arrival: Ambulatory 08:26 Acuity: COMPA 4 hj Triage Assessment: 08:32 General: Appears in no apparent distress. uncomfortable, Behavior is calm, cooperative, hj appropriate for age. Pain: Complains of pain in forehead. Injury Description: Laceration sustained to forehead is clean, 0.5 to 2.5 cm long, not bleeding, was sustained 12-24 hours ago. is bleeding no active bleeding noted. 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 - Social history:: Smoking status: Patient uses tobacco products, Patient uses alcohol. - Ebola Screening: : Patient negative for fever greater than or equal to 101.5 degrees Fahrenheit, and additional compatible Ebola Virus Disease symptoms Patient denies exposure to infectious person Patient denies travel to an Ebola-affected area in the 21 days before illness onset. Screenin:33 Abuse screen: Denies threats or abuse. Denies injuries from another. Nutritional hj screening: No deficits noted. Tuberculosis screening: No symptoms or risk factors identified. Fall Risk None identified. Assessment: 08:33 Musculoskeletal: No signs and/or symptoms reported regarding the musculoskeletal hj system. Injury Description: Laceration. 08:35 Reassessment: provider in room for lac repair;. hj Vital Signs: 08:34 BP 125 / 86; Pulse 65; Resp 18; Temp 98.1(TE); Pulse Ox 100% on R/A; Weight 90.26 kg; hj Height 5 ft. 9 in. (175.26 cm); Pain 5/10; 08:34 Body Mass Index 29.39 (90.26 kg, 175.26 cm) hj ED Course: 08:19 Patient arrived in ED. mr 08:19 Josh Juarez DO is Private Physician. mr 08:24 Maik Patino MD is Attending Physician. ps1 08:25 Yao Posada RN is Primary Nurse. hj 08:28 Triage completed. hj 08:33 Arm band placed on right wrist. hj 08:35 Patient has correct armband on for positive identification. Bed in low position. Call hj light in reach. Side rails up X 1. 09:08 Josh Juarez DO is Referral Physician. ps1 09:15 No provider procedures requiring assistance completed. Patient did not have IV access hj during this emergency room visit. Administered Medications: 09:00 Drug: Tetanus-Diphtheria Toxoid Adult 0.5 ml {Sound Person: [employer]. Exp: 07/23/2020. Lot #: [id number]. } Route: IM; Site: left deltoid; 09:00 Follow up: Response: No adverse reaction hj Outcome: 09:09 Discharge ordered by . ps1 09:16 Discharged to home ambulatory. hj 09:16 Condition: stable 09:16 Discharge instructions given to patient, Instructed on discharge instructions, follow up and referral plans. wound care, Demonstrated understanding of instructions, follow-up care, wound care. 09:16 Patient left the ED. Signatures: Jillian Wang mr Yao Posada RN RN Patino, Maik, MD MD ps1
--- NOTE | 2018-06-23 09:09 | EDPHYS ---
Physician Documentation [facility] Name: Felicia York Age: 32 yrs Sex: Female : 1985 Arrival Date: 06/23/2018 Time: 08:19 Bed 15 Private MD: Josh Juarez H ED Physician Maik Patino HPI: 06/23 09:02 This 32 yrs old Female presents to ER via Ambulatory with complaints of ps1 Laceration To Head. 09:02 patient was out with friends approx 28 hours [employer]. Fell and hit her head. No MSK ps1 complaints at this time. Wound still appears fresh and localized to front scalp. Tetanus not UTD. Pain rated as mild. 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 - Social history:: Smoking status: Patient uses tobacco products, Patient uses alcohol. - Ebola Screening: : Patient negative for fever greater than or equal to 101.5 degrees Fahrenheit, and additional compatible Ebola Virus Disease symptoms Patient denies exposure to infectious person Patient denies travel to an Ebola-affected area in the 21 days before illness onset. ROS: 09:02 Constitutional: Negative for fever, chills, and weight loss, Eyes: Negative for injury, ps1 pain, redness, and discharge, ENT: Negative for injury, pain, and discharge, Cardiovascular: Negative for chest pain, palpitations, and edema, Respiratory: Negative for shortness of breath, cough, wheezing, and pleuritic chest pain, Abdomen/GI: Negative for abdominal pain, nausea, vomiting, diarrhea, and constipation, MS/Extremity: Negative for injury and deformity, Neuro: Negative for headache, weakness, numbness, tingling, and seizure, Psych: Negative for depression, anxiety, suicide ideation, homicidal ideation, and hallucinations. 09:02 Skin: Positive for laceration(s), of the forehead. Exam: 09:02 Constitutional: This is a well developed, well nourished patient who is awake, alert, ps1 and in no acute distress. Eyes: Pupils equal round and reactive to light, extra-ocular motions intact. Lids and lashes normal. Conjunctiva and sclera are non-icteric and not injected. ENT: Nares patent. No nasal discharge, no septal abnormalities noted. Tympanic membranes are normal and external auditory canals are clear. Oropharynx with no redness, swelling, or masses, exudates, or evidence of obstruction, uvula midline. Mucous membranes moist. Chest/axilla: Normal chest wall appearance and motion. Nontender with no deformity. No lesions are appreciated. Cardiovascular: Regular rate and rhythm. No gallops, murmurs, or rubs. Normal PMI, no JVD. No pulse deficits. Respiratory: Lungs have equal breath sounds bilaterally, clear to auscultation and percussion. No rales, rhonchi or wheezes noted. No increased work of breathing, no retractions or nasal flaring. Abdomen/GI: Soft, non-tender, with normal bowel sounds. No distension or tympany. No guarding or rebound. No evidence of tenderness throughout. Skin: Warm, dry with normal turgor. Normal color with no rashes, no lesions, and no evidence of cellulitis. MS/ Extremity: Pulses equal, no cyanosis. Neurovascular intact. Full, normal range of motion. Neuro: Awake and alert, GCS 15, oriented to person, place, time, and situation. Cranial nerves II-XII grossly intact. Sensory grossly intact. 09:02 Head/face: Noted is a laceration(s), that is linear, 2 cm(s), of the forehead. Vital Signs: 08:34 BP 125 / 86; Pulse 65; Resp 18; Temp 98.1(TE); Pulse Ox 100% on R/A; Weight 90.26 kg; hj Height 5 ft. 9 in. (175.26 cm); Pain 5/10; 08:34 Body Mass Index 29.39 (90.26 kg, 175.26 cm) hj Laceration: 09:02 Wound Repair of 2cm ( 0.8in ) subcutaneous laceration to forehead. Distal ps1 neuro/vascular/tendon intact. Anesthesia: Local anesthetic administered with 4 mls of 1% lidocaine w/ Epi. Wound prep: Moderate cleansing with hibiclenz, Wound debrided moderately. Skin closed with 3 5-0 Prolene using simple sutures and sterile technique. Dressed with Neosporin. Patient tolerated well. MDM: 09:02 Data reviewed: vital signs, nurses notes, and as a result, I will discharge patient. ps1 09:09 Patient medically screened. ps1 Administered Medications: 09:00 Drug: Tetanus-Diphtheria Toxoid Adult 0.5 ml {Residential Care Officer: [employer]. Exp: 07/23/2020. Lot #: [id number]. } Route: IM; Site: left deltoid; 09:00 Follow up: Response: No adverse reaction hj Disposition: 06/23/18 09:09 Discharged to Home. Impression: Laceration without foreign body of scalp, Tetanus prophylaxis. - Condition is Stable. - Discharge Instructions: Stitches, Dina, or Adhesive Wound Closure. - Medication Reconciliation Form, Thank You Letter, Antibiotic Education, Prescription Opioid Use form. - Follow up: Josh Juarez DO; When: 7 - 10 days; Reason: Wound Recheck, Recheck today's complaints, Staple/Suture removal, Re-evaluation by your physician. Follow up: Emergency Department; When: As needed; Reason: Fever > 102 F, Worsening of condition. - Problem is new. - Symptoms have improved. Signatures: Yao Posada RN RN hj Singer, Phillip, MD MD ps1 Corrections: (The following items were deleted from the chart) 09:16 09:09 06/23/2018 09:09 Discharged to Home. Impression: Laceration without foreign body hj of scalp; Tetanus prophylaxis. Condition is Stable. Forms are Medication Reconciliation Form, Thank You Letter, Antibiotic Education, Prescription Opioid Use. Follow up: Josh Juarez; When: 7 - 10 days; Reason: Wound Recheck, Recheck today's complaints, Staple/Suture removal, Re-evaluation by your physician. Follow up: Emergency Department; When: As needed; Reason: Fever > 102 F, Worsening of condition. Problem is new. Symptoms have improved. ps1
[2018-06-23 09:35] VITALS: BP 125/86; TEMP 98.1; O2SAT 100
== END 2018-06-23 09:16 | disposition home or self-care (01) ==
LOC: ER 08:16
PROC: 0JQ10ZZ Repair Face Subcutaneous Tissue and Fascia, Open Approach (ICD-10-PCS; principal; 2018-06-23)
DX: S01.81XA Laceration without foreign body of other part of head, initial encounter (principal); W19.XXXA Unspecified fall, initial encounter; Z23 Encounter for immunization; Z72.0 Tobacco use
CPT/HCPCS: 90714; 99283

== ENCOUNTER 2018-07-19 14:44 | Emergency (ER) | payer SELFPAY ==
[2018-07-19 16:23] LABS: Absolute Lymphocytes (CBC) 2.5 K/uL (0.7-4.9); Absolute Monocytes 0.5 K/uL (0.1-1.3); Absolute Neutrophil 2.8 K/uL (1.8-8.0); Basophils % 1.1 % (0-1.3); Eosinophils % 4.2 % (0-4.4); Hematocrit 40.2 % (36.0-45.0); Lymphocytes % 40.4 % (15.3-44.8); MPV 8.4 fL (7.6-11.3); RBC Red Blood Cell Count 4.41 M/uL (3.86-4.86)
[2018-07-19] MEDS ORDERED: MORPHINE 4 MG/ML SYR ONE (16:28)
[2018-07-19 16:31] LABS: Urine Bacteria 20-50 /HPF (<20); Urine Culture Reflex Order REFLEXED; Urine RBC <5 /HPF (NONE SEEN)
[2018-07-19 16:48] LABS: Albumin 3.7 g/dL (3.4-5.0); Bilirubin Direct 0.1 mg/dL (0-0.2); Bilirubin Total 0.4 mg/dL (0.2-1.0); Potassium 3.8 mmol/L (3.5-5.1)
[2018-07-19] MEDS ORDERED: ONDANSETRON 4 MG/2 ML VIAL ONE ×2 (16:52→16:58)
[2018-07-19 16:53] LABS: Urine Blood NEGATIVE (NEG); Urine Glucose NEGATIVE (NEG); Urine Protein NEGATIVE (NEG); Urine Specific Gravity >1.030 (1.005-1.030)
[2018-07-19] MEDS ORDERED: HYDROMORPHONE HCL 1 MG/ML INJ ONE (18:03)
--- NOTE | 2018-07-19 19:40 | RAD REPORT ---
EXAM DESCRIPTION: CT - Abdomen Pelvis W Contrast - 07/19/2018 7:18 pm CLINICAL HISTORY: Abdominal pain, abdominal cramping, rectal bleeding COMPARISON: CT imaging August 2016 TECHNIQUE: Biphasic, helical CT imaging of the abdomen and pelvis was performed following 100 ml non -ionic IV contrast. Oral contrast was given. All CT scans are performed using dose optimization technique as appropriate and may include automated exposure control or mA/KV adjustment according to patient size. FINDINGS: No suspicious findings in the lung bases. The liver, spleen, and pancreas show no suspicious findings. Gallbladder and biliary tree are also wi thout suspicious finding. Symmetric renal function is seen with no hydronephrosis or suspicious renal mass. No pyelonephritis o r acute parenchymal process. Urinary bladder is fully contracted limiting assessment. Uterus and ovar ies show no suspicious findings. No adrenal abnormalities. No dilated bowel loops or bowel wall thickening. Appendectomy clips are present. Moderate stool volum e throughout the colon. No active colon process seen. No endometrioma or other mass identifiable. No free air, free fluid or inflammatory stranding. No hernia, mass or bulky lymphadenopathy. No suspicious bony findings. IMPRESSION: Contrast enhanced CT abdomen and pelvis showing no significant or suspicious finding. Patient does have prominent stool volume throughout the colon but no acute colon process.
--- NOTE | 2018-07-19 20:15 | ER ---
Nurse's Notes [facility] Name: Felicia York Age: 32 yrs Sex: Female : 1985 Arrival Date: 07/19/2018 Time: 14:45 Bed 5 Private MD: Josh Juarez H Diagnosis: Gastrointestinal hemorrhage, unspecified-rectal Presentation: 07/19 15:21 Presenting complaint: Patient states: Lower abdominal cramping and bright red rectal hb bleeding today. Transition of care: patient was not received from another setting of care. Onset of symptoms. Risk Assessment: Do you want to hurt yourself or someone else? Patient reports no desire to harm self or others. Care prior to arrival: None. 15:21 Method Of Arrival: Ambulatory hb 15:21 Acuity: COMPA 3 hb Historical: - Allergies: 15:25 No Known Allergies; hb - Home Meds: 16:02 phentermine Oral once daily [Active]; Tramadol Oral [Active]; sg - PMHx: 16:02 Endometriosis; sg - PSHx: 16:02 ; D \T\ C; sg - Immunization history:: Adult Immunizations up to date. - Social history:: Smoking status: Patient uses tobacco products, smokes one-half pack cigarettes per day. - Ebola Screening: : No symptoms or risks identified at this time. - Family history:: not pertinent. - Hospitalizations: : No recent hospitalization is reported. Screenin:40 Abuse screen: Denies threats or abuse. Denies injuries from another. Nutritional sg screening: No deficits noted. Tuberculosis screening: No symptoms or risk factors identified. Never had TB. Fall Risk None identified. Assessment: 15:40 General: Appears in no apparent distress. uncomfortable, well groomed, well developed, sg well nourished, Behavior is calm, cooperative, appropriate for age. Pain: Complains of pain in left lower quadrant and right lower quadrant and suprapubic area Quality of pain is described as aching, tender. Neuro: Level of Consciousness is awake, alert, obeys commands, Speech is normal, Facial symmetry appears normal. Cardiovascular: Patient's skin is warm and dry. Chest pain is denied. Respiratory: Airway is patent Respiratory effort is even, unlabored, Respiratory pattern is regular, symmetrical, Breath sounds are clear. GI: Bowel sounds present X 4 quads. Abd is soft and non tender X 4 quads. GI: Reports lower abdominal pain, rectal bleeding, bloody stool. : No signs and/or symptoms were reported regarding the genitourinary system. EENT: No signs and/or symptoms were reported regarding the EENT system. Derm: Skin is pink, warm \T\ dry. Musculoskeletal: No signs and/or symptoms reported regarding the musculoskeletal system. 20:11 Reassessment: Patient appears in no apparent distress at this time. No changes from ed1 previously documented assessment. Patient and/or family updated on plan of care and expected duration. Pain level reassessed. Patient is alert, oriented x 3, equal unlabored respirations, skin warm/dry/pink. Patient states symptoms have not improved. Vital Signs: 15:25 BP 118 / 76; Pulse 84; Resp 16; Temp 98.1; Pulse Ox 100% on R/A; Pain 7/10; hb 18:20 BP 137 / 72; Pulse 79; Resp 18; Pulse Ox 96% ; sv 20:11 BP 130 / 65; Pulse 71; Resp 18; Pulse Ox 100% on R/A; Pain 7/10; ed1 ED Course: 14:45 Patient arrived in ED. sb2 14:46 Josh Juarez DO is Private Physician. sb2 15:21 Arm band placed on. hb 15:25 Triage completed. hb 15:33 Jarrell Aamto MD is Attending Physician. rn 15:55 Faustino Saucedo, RN is Primary Nurse. sg 16:00 Initial lab(s) drawn, by fl, sent to lab. Inserted saline lock: 20 gauge in right sv antecubital area, using aseptic technique. Blood collected. Flushed right antecubital with 5 ml normal saline. 19:10 Primary Nurse role handed off by Faustino Saucedo, AMI ed1 19:10 Janay Aguilar, AMI is Primary Nurse. ed1 19:19 CT Abd/Pelvis - W/Contrast In Process Unspecified. EDMS 19:19 CT completed. Patient tolerated procedure well. Patient moved back from CT. vr 19:49 Attending Physician role handed off by Jarrell Amato MD haydee 19:49 See Rosario MD is Attending Physician. haydee 20:11 Patient has correct armband on for positive identification. Placed in gown. Bed in low ed1 position. Call light in reach. Side rails up X2. 20:11 Served as a circulation representative during rectal exam. ed1 20:13 Josh Juarez DO is Referral Physician. haydee 20:14 Shannon Sosa MD is Referral Physician. haydee 20:14 Greta Zheng MD is Referral Physician. haydee 20:56 IV discontinued, intact, bleeding controlled, No redness/swelling at site. Pressure ed1 dressing applied. Administered Medications: 16:25 Drug: morphine 4 mg Route: IVP; Site: right antecubital; sg 16:50 Follow up: Response: No adverse reaction; Pain is unchanged, physician notified sg 16:50 Drug: Zofran 4 mg Route: IVP; Site: right antecubital; sg 17:00 Follow up: Response: No adverse reaction sv 18:00 Drug: Dilaudid 1 mg Route: IVP; Site: right antecubital; sg 18:45 Follow up: Response: No adverse reaction; Pain is decreased sg 20:50 Drug: Dilaudid 0.5 mg Route: IVP; Site: right antecubital; ed1 20:51 Follow up: Response: Medication administered at discharge. ed1 20:51 Drug: Cipro 500 mg Route: PO; ed1 20:51 Follow up: Response: Medication administered at discharge. ed1 Outcome: 20:14 Discharge ordered by . [facility] 20:56 Discharged to home ambulatory, with family. ed1 20:56 Condition: good 20:56 Discharge instructions given to patient, Instructed on discharge instructions, follow up and referral plans. medication usage, Demonstrated understanding of instructions, follow-up care, medications, Prescriptions given X 3. 20:57 Patient left the ED. ed1 Signatures: Dispatcher [employer] EDEm Padron RN RN sv Gay, Steven, RN RN sg Anderson, Corey, MD MD cha Nieto, Roman, MD MD rn Riggs, Erika, RN RN ed1 Ivelisse Do Heather, RN RN Cherelle Sanchez sb2
--- NOTE | 2018-07-19 20:15 | EDPHYS ---
Physician Documentation [facility] Name: Felicia York Age: 32 yrs Sex: Female : 1985 Arrival Date: 07/19/2018 Time: 14:45 Bed 5 Private MD: Josh Juarez H ED Physician See Rosario HPI: 07/19 15:47 This 32 yrs old Female presents to ER via Ambulatory with complaints of rn Rectal Bleeding, Abdominal Pain. 15:47 The patient presents to the emergency department with bleeding from the rectum/anus, rn that is mild. 15:47 Onset: The symptoms/episode began/occurred today. Modifying factors: The symptoms are rn alleviated by nothing, The symptoms are aggravated by bowel movement. Associate signs and symptoms: Pertinent positives: abdominal pain in the suprapubic area, right lower quadrant and left lower quadrant. The patient has not experienced similar symptoms in the past. The patient has not recently seen a physician. Historical: - Allergies: 15:25 No Known Allergies; hb - Home Meds: 16:02 phentermine Oral once daily [Active]; Tramadol Oral [Active]; sg - PMHx: 16:02 Endometriosis; sg - PSHx: 16:02 ; D \T\ C; sg - Immunization history:: Adult Immunizations up to date. - Social history:: Smoking status: Patient uses tobacco products, smokes one-half pack cigarettes per day. - Ebola Screening: : No symptoms or risks identified at this time. - Family history:: not pertinent. - Hospitalizations: : No recent hospitalization is reported. ROS: 15:47 Constitutional: Negative for fever, chills, and weight loss, Eyes: Negative for injury, rn pain, redness, and discharge, Neck: Negative for injury, pain, and swelling, Cardiovascular: Negative for chest pain, palpitations, and edema, Respiratory: Negative for shortness of breath, cough, wheezing, and pleuritic chest pain, Abdomen/GI: + lower abd pain and rectal bleeding MS/Extremity: Negative for injury and deformity, Skin: Negative for injury, rash, and discoloration, Neuro: Negative for headache, weakness, numbness, tingling, and seizure. Exam: 15:47 Constitutional: This is a well developed, well nourished patient who is awake, alert, rn and in no acute distress. Head/Face: Normocephalic, atraumatic. Cardiovascular: Regular rate and rhythm with a normal S1 and S2. No gallops, murmurs, or rubs. Normal PMI, no JVD. No pulse deficits. Respiratory: Lungs have equal breath sounds bilaterally, clear to auscultation and percussion. No rales, rhonchi or wheezes noted. No increased work of breathing, no retractions or nasal flaring. Abdomen/GI: + lower abd tenderness, no rebound Skin: Warm, dry with normal turgor. Normal color with no rashes, no lesions, and no evidence of cellulitis. MS/ Extremity: Pulses equal, no cyanosis. Neurovascular intact. Full, normal range of motion. Equal circumference. Neuro: Awake and alert, GCS 15, oriented to person, place, time, and situation. Cranial nerves II-XII grossly intact. Motor strength 5/5 in all extremities. Sensory grossly intact. Cerebellar exam normal. Normal gait. 20:12 Abdomen/GI: Rectal exam: is unremarkable, hemorrhoid(s), are not appreciated, no haydee fissure, no gross bleeing. Vital Signs: 15:25 BP 118 / 76; Pulse 84; Resp 16; Temp 98.1; Pulse Ox 100% on R/A; Pain 7/10; hb 18:20 BP 137 / 72; Pulse 79; Resp 18; Pulse Ox 96% ; sv 20:11 BP 130 / 65; Pulse 71; Resp 18; Pulse Ox 100% on R/A; Pain 7/10; ed1 MDM: 15:33 Patient medically screened. rn 19:05 Transition of care: After a detail discussion of the patient's case, care is rn transferred to See Rosario MD. 20:13 Data reviewed: vital signs, nurses notes, lab test result(s), radiologic studies, CT haydee scan. 07/19 15:38 Order name: Basic Metabolic Panel; Complete Time: 17:47 rn 07/19 15:38 Order name: CBC with Diff; Complete Time: 17:47 rn 07/19 15:38 Order name: Hepatic Function; Complete Time: 17:47 rn 07/19 15:38 Order name: Lipase; Complete Time: 17:47 rn 07/19 15:39 Order name: Urine Microscopic Only; Complete Time: 17:47 rn 07/19 15:52 Order name: Urine Dipstick--Ancillary (enter results); Complete Time: 17:47 em1 07/19 15:38 Order name: CT Abd/Pelvis - W/Contrast; Complete Time: 20:04 rn 07/19 15:52 Order name: Urine --Ancillary (enter results); Complete Time: 17:47 em1 07/19 16:32 Order name: Urine Culture [facility] 07/19 15:38 Order name: IV Saline Lock; Complete Time: 16:12 rn 07/19 15:38 Order name: Labs collected and sent; Complete Time: 16:12 rn 07/19 15:39 Order name: Urine Test (obtain specimen); Complete Time: 15:50 rn 07/19 15:39 Order name: Urine Dipstick-Ancillary (obtain specimen); Complete Time: 15:50 rn Administered Medications: 16:25 Drug: morphine 4 mg Route: IVP; Site: right antecubital; sg 16:50 Follow up: Response: No adverse reaction; Pain is unchanged, physician notified sg 16:50 Drug: Zofran 4 mg Route: IVP; Site: right antecubital; sg 17:00 Follow up: Response: No adverse reaction sv 18:00 Drug: Dilaudid 1 mg Route: IVP; Site: right antecubital; sg 18:45 Follow up: Response: No adverse reaction; Pain is decreased sg 20:50 Drug: Dilaudid 0.5 mg Route: IVP; Site: right antecubital; ed1 20:51 Follow up: Response: Medication administered at discharge. ed1 20:51 Drug: Cipro 500 mg Route: PO; ed1 20:51 Follow up: Response: Medication administered at discharge. ed1 Disposition: 07/19/18 20:14 Discharged to Home. Impression: Gastrointestinal hemorrhage, unspecified - rectal. - Condition is Stable. - Discharge Instructions: Gastrointestinal Bleeding, Rectal Bleeding, Rectal Bleeding, [id number]. - Prescriptions for Bentyl 20 mg Oral Tablet - take 1 tablet by ORAL route every 6 hours As needed; 20 tablet. Colace 100 mg Oral Tablet - take 1 tablet by ORAL route every 12 hours; 14 tablet. Cipro 500 mg Oral Tablet - take 1 tablet by ORAL route every 12 hours for 7 days; 14 tablet. - Medication Reconciliation Form, Thank You Letter, Antibiotic Education, Prescription Opioid Use, Work release form form. - Follow up: Josh Juarez DO; When: 2 - 3 days; Reason: Recheck today's complaints, Continuance of care, Re-evaluation by your physician. Follow up: Shannon Sosa MD; When: 2 - 3 days; Reason: Recheck today's complaints, Continuance of care, Re-evaluation by your physician. Follow up: Greta Zheng MD; When: 2 - 3 days; Reason: Recheck today's complaints, Re-evaluation by your physician. - Problem is new. - Symptoms have improved. Signatures: Dispatcher [employer] EDMS Faustino Saucedo, RN RN sg See Rosario MD MD cha Nieto, Roman, MD MD rn Riggs, Erika, RN RN ed1 Melba Gilbert RN RN Em Bustos RN Corrections: (The following items were deleted from the chart) 20:57 20:14 07/19/2018 20:14 Discharged to Home. Impression: Gastrointestinal hemorrhage, ed1 unspecified - rectal. Condition is Stable. Forms are Medication Reconciliation Form, Thank You Letter, Antibiotic Education, Prescription Opioid Use. Follow up: Josh Juarez; When: 2 - 3 days; Reason: Recheck today's complaints, Continuance of care, Re-evaluation by your physician. Follow up: Shannon Sosa; When: 2 - 3 days; Reason: Recheck today's complaints, Continuance of care, Re-evaluation by your physician. Follow up: Greta Zheng; When: 2 - 3 days; Reason: Recheck today's complaints, Re-evaluation by your physician. Problem is new. Symptoms have improved. haydee
[2018-07-19] MEDS ORDERED: CIPROFLOXACIN HCL 500 MG TAB ONE (20:46)
[2018-07-19] MEDS ORDERED: HYDROMORPHONE HCL 0.5 MG/0.5 ML INJ ONE (20:46)
[2018-07-19 21:08] VITALS: TEMP 98.1
[2018-07-19 21:11] VITALS: BP 130/65; O2SAT 100
== END 2018-07-19 20:57 | disposition home or self-care (01) ==
LOC: ER 14:44
DX: K62.5 Hemorrhage of anus and rectum (principal); F17.210 Nicotine dependence, cigarettes, uncomplicated
CPT/HCPCS: 36415; 74177; 80048; 80076; 81003; 81015; 81025; 83690; 85025; 87086; 87088; 96374; 96375; 99284; J1170; J2405; Q9967

== ENCOUNTER 2018-07-21 09:28 | Emergency (ER) | payer SELFPAY ==
[2018-07-21 10:33] LABS: Absolute Lymphocytes (CBC) 1.7 K/uL (0.7-4.9); Absolute Monocytes 0.8 K/uL (0.1-1.3); Absolute Neutrophil 8.9 K/uL (1.8-8.0); Basophils % 0.5 % (0-1.3); Eosinophils % 1.6 % (0-4.4); Hematocrit 38.9 % (36.0-45.0); Lymphocytes % 14.9 % (15.3-44.8); MPV 8.2 fL (7.6-11.3); Monocytes % 6.5 % (3.3-12.3); RBC Red Blood Cell Count 4.24 M/uL (3.86-4.86)
[2018-07-21 10:52] LABS: BUN Blood Urea Nitrogen 15 mg/dL (7-18); Bicarbonate 30 mmol/L (21-32); Glucose Level 91 mg/dL (74-106); Sodium Level 141 mmol/L (136-145)
--- NOTE | 2018-07-21 11:28 | EDPHYS ---
Physician Documentation [facility] Name: Felicia York Age: 32 yrs Sex: Female : 1985 Arrival Date: 07/21/2018 Time: 09:31 Bed 23 Private MD: Josh Juarez H ED Physician Jarrell Amato HPI: 07/21 11:29 This 32 yrs old Female presents to ER via Ambulatory with complaints of jr8 Rectal Bleeding. 11:29 The patient presents to the emergency department with bleeding from the rectum/anus, jr8 that is mild. Onset: The symptoms/episode began/occurred acutely, 3 day(s) ago. Context: the patient has no known special context relating to the rectal area complaint(s). Modifying factors: The symptoms are alleviated by nothing, The symptoms are aggravated by bowel movement. Associate signs and symptoms: The patient has no apparent associated signs or symptoms. The patient has not experienced similar symptoms in the past. The patient has been recently seen by a physician:. Patient seen two days ago for lower abdominal pain and rectal bleeding. No acute findings intra-abdominally. Had UTI and constipation noted. Was started on medications. Came back today for continued rectal bleeding. Had digitally tried to disimpact herself . 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 - Social history:: Smoking status: Patient uses tobacco products, smokes one pack cigarettes per day. - Ebola Screening: : No symptoms or risks identified at this time. ROS: 11:29 Eyes: Negative for injury, pain, redness, and discharge, ENT: Negative for injury, jr8 pain, and discharge, Neck: Negative for injury, pain, and swelling, Cardiovascular: Negative for chest pain, palpitations, and edema, Respiratory: Negative for shortness of breath, cough, wheezing, and pleuritic chest pain, Back: Negative for injury and pain, MS/Extremity: Negative for injury and deformity, Skin: Negative for injury, rash, and discoloration, Neuro: Negative for headache, weakness, numbness, tingling, and seizure. 11:29 Abdomen/GI: Positive for constipation, rectal bleeding, Negative for abdominal pain, nausea, vomiting, and diarrhea, abdominal distension, anorexia, dysphagia, hematemesis, black/tarry stool, rectal pain, bowel incontinence, flatulence. Exam: 11:29 Eyes: Pupils equal round and reactive to light, extra-ocular motions intact. Lids and jr8 lashes normal. Conjunctiva and sclera are non-icteric and not injected. Cornea within normal limits. Periorbital areas with no swelling, redness, or edema. ENT: Nares patent. No nasal discharge, no septal abnormalities noted. Tympanic membranes are normal and external auditory canals are clear. Oropharynx with no redness, swelling, or masses, exudates, or evidence of obstruction, uvula midline. Mucous membranes moist. Neck: Trachea midline, no thyromegaly or masses palpated, and no cervical lymphadenopathy. Supple, full range of motion without nuchal rigidity, or vertebral point tenderness. No Meningismus. Cardiovascular: Regular rate and rhythm with a normal S1 and S2. No gallops, murmurs, or rubs. Normal PMI, no JVD. No pulse deficits. Respiratory: Lungs have equal breath sounds bilaterally, clear to auscultation and percussion. No rales, rhonchi or wheezes noted. No increased work of breathing, no retractions or nasal flaring. Back: No spinal tenderness. No costovertebral tenderness. Full range of motion. Skin: Warm, dry with normal turgor. Normal color with no rashes, no lesions, and no evidence of cellulitis. MS/ Extremity: Pulses equal, no cyanosis. Neurovascular intact. Full, normal range of motion. Neuro: Awake and alert, GCS 15, oriented to person, place, time, and situation. Cranial nerves II-XII grossly intact. Motor strength 5/5 in all extremities. Sensory grossly intact. Cerebellar exam normal. Normal gait. 11:29 Abdomen/GI: Inspection: abdomen appears normal, Bowel sounds: active, all quadrants, Palpation: soft, in all quadrants, Rectal exam: rectal tone normal, Stool: brown, guaiac positive, pink tinged stool noted, hemorrhoid(s), are not appreciated, mass, is not appreciated, tenderness, is not appreciated, fecal impaction, is not appreciated, the exam is chaperoned by the nurse, Indicators: McBurney's point is not tender, Aivles's sign is negative, Rovsing's sign is negative, Liver: tenderness, is not appreciated. Vital Signs: 09:45 BP 156 / 89; Pulse 91; Resp 16; Temp 97.8; Pulse Ox 99% on R/A; Pain 9/10; hb 10:09 Weight 90.26 kg; Height 5 ft. 9 in. (175.26 cm); aj 11:46 BP 145 / 85; Pulse 85; Resp 19; Pulse Ox 99% on R/A; aj 10:09 Body Mass Index 29.39 (90.26 kg, 175.26 cm) aj MDM: 09:51 Patient medically screened. jr8 11:26 Data reviewed: vital signs, nurses notes, old medical records, lab test result(s), and jr8 as a result, I will discharge patient. Data interpreted: Pulse oximetry: on room air is 99 %. Interpretation: normal. 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 11:29 ED course: Discussed with patient that I reviewed everything from two days ago along jr8 with today. No acute change noted. No gross rectal bleeding. Recommended Miralax and to see GI for colonoscopy at this point. If worse to come back. Patient is good with this plan. 07/21 10:02 Order name: CBC with Diff; Complete Time: 10:36 jr8 07/21 10:02 Order name: Basic Metabolic Panel; Complete Time: 11:11 jr8 07/21 10:02 Order name: IV; Complete Time: 10:27 jr8 07/21 11:34 Order name: Guiac eb Administered Medications: No medications were administered Disposition: 18:19 Co-signature as Attending Physician, Jarrell Amato MD. rn Disposition: 07/21/18 11:26 Discharged to Home. Impression: Gastrointestinal hemorrhage, unspecified. - Condition is Stable. - Discharge Instructions: Gastrointestinal Bleeding, Rectal Bleeding. - Medication Reconciliation Form, Thank You Letter, Antibiotic Education, Prescription Opioid Use form. - Follow up: Steve Cordova MD; When: 2 - 3 days; Reason: Recheck today's complaints, Continuance of care, Re-evaluation by your physician. - Problem is new. - Symptoms have improved. - Notes: Miralax once a day Signatures: Dispatcher [employer] EDLeann Vitale RN RN aj Nieto, Roman, MD MD rn Roszak, Josh, PA PA jr8 Melba Gilbert RN RN Corrections: (The following items were deleted from the chart) 11:48 11:26 07/21/2018 11:26 Discharged to Home. Impression: Gastrointestinal hemorrhage, aj unspecified. Condition is Stable. Forms are Medication Reconciliation Form, Thank You Letter, Antibiotic Education, Prescription Opioid Use. Follow up: Steve Cordova; When: 2 - 3 days; Reason: Recheck today's complaints, Continuance of care, Re-evaluation by your physician. Problem is new. Symptoms have improved. jr8
--- NOTE | 2018-07-21 11:28 | ER ---
Nurse's Notes [facility] Name: Felicia York Age: 32 yrs Sex: Female : 1985 Arrival Date: 07/21/2018 Time: 09:31 Bed 23 Private MD: Josh Juarez H Diagnosis: Gastrointestinal hemorrhage, unspecified Presentation: 07/21 09:47 Presenting complaint: Bright blood from rectum last night after disimpacting self, then hb again today. Also reports lower abdominal pain 02/16. Transition of care: patient was not received from another setting of care. Onset of symptoms was July 20, 2018. Risk Assessment: Do you want to hurt yourself or someone else? Patient reports no desire to harm self or others. Care prior to arrival: None. 09:47 Method Of Arrival: Ambulatory hb 09:47 Acuity: COMPA 3 hb 11:47 Initial Sepsis Screen: Does the patient meet any 2 criteria? No. Patient's initial aj sepsis screen is negative. Does the patient have a suspected source of infection? No. Patient's initial sepsis screen is negative. 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 - Social history:: Smoking status: Patient uses tobacco products, smokes one pack cigarettes per day. - Ebola Screening: : No symptoms or risks identified at this time. Screenin:07 Abuse screen: Denies threats or abuse. Denies injuries from another. Nutritional aj screening: No deficits noted. Tuberculosis screening: No symptoms or risk factors identified. Fall Risk None identified. Assessment: 10:07 General: Appears in no apparent distress. comfortable, Behavior is calm, cooperative, aj appropriate for age. Pain: Complains of pain in abdomen. Neuro: Level of Consciousness is awake, alert, obeys commands, Oriented to person, place, time, situation, Appropriate for age. Respiratory: Airway is patent Respiratory effort is even, unlabored, Respiratory pattern is regular, symmetrical. GI: Bowel sounds present X 4 quads. Abd is soft and non tender X 4 quads. Reports rectal bleeding. Derm: Skin is intact, is healthy with good turgor, Skin is pink, warm \T\ dry. normal. Vital Signs: 09:45 BP 156 / 89; Pulse 91; Resp 16; Temp 97.8; Pulse Ox 99% on R/A; Pain 9/10; hb 10:09 Weight 90.26 kg; Height 5 ft. 9 in. (175.26 cm); aj 11:46 BP 145 / 85; Pulse 85; Resp 19; Pulse Ox 99% on R/A; aj 10:09 Body Mass Index 29.39 (90.26 kg, 175.26 cm) aj ED Course: 09:31 Patient arrived in ED. mr 09:32 Josh Juarez DO is Private Physician. mr 09:46 Arm band placed on. hb 09:48 Triage completed. hb 09:50 [facility]. jr8 09:51 Jarrell Amato MD is Attending Physician. jr8 09:51 Leann Shankar, AMI is Primary Nurse. aj 10:07 Patient has correct armband on for positive identification. Placed in gown. Bed in low aj position. 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 Inserted saline lock: 20 gauge in right upper aj arm, using aseptic technique. Blood collected. 10:27 Basic Metabolic Panel Sent. aj 10:27 CBC with Diff Sent. aj 11:26 Steve Cordova MD is Referral Physician. jr8 11:46 IV discontinued, bleeding controlled, No redness/swelling at site. Pressure dressing aj applied. Administered Medications: No medications were administered Outcome: 11:26 Discharge ordered by . jr8 11:46 Discharged to home ambulatory. aj 11:46 Condition: good 11:46 Discharge instructions given to patient, Instructed on discharge instructions, follow up and referral plans. Demonstrated understanding of instructions, follow-up care. 11:48 Patient left the ED. aj Signatures: Leann Shankar, RN Jillian Rodgers mr Jama Babin PA PA jrMelba Yoon RN RN
[2018-07-21 12:14] VITALS: TEMP 97.8; O2SAT 99
[2018-07-21 12:16] VITALS: BP 145/85
== END 2018-07-21 11:48 | disposition home or self-care (01) ==
LOC: ER 09:28
DX: K92.2 Gastrointestinal hemorrhage, unspecified (principal); F17.210 Nicotine dependence, cigarettes, uncomplicated
CPT/HCPCS: 36415; 80048; 85025; 99283

== ENCOUNTER 2018-09-22 15:00 | Emergency (ER) | payer SELFPAY ==
--- NOTE | 2018-09-22 15:49 | ER ---
Nurse's Notes [facility] Name: Felicia York Age: 32 yrs Sex: Female : 1985 Arrival Date: 09/22/2018 Time: 15:03 Bed 12 Private MD: Josh Juarez H Diagnosis: Nondisplaced fracture of medial phalanx of left little finger Presentation: 09/22 15:06 Presenting complaint: Patient states: left 5th digit injury that happened on Friday sv after getting it jammed. c/o increased pain and swelling. Transition of care: patient was not received from another setting of care. Onset of symptoms was September 19, 2018. Care prior to arrival: None. 15:06 Method Of Arrival: Ambulatory sv 15:06 Acuity: COMPA 3 sv 16:28 Risk Assessment: Do you want to hurt yourself or someone else? Patient reports no aj1 desire to harm self or others. Initial Sepsis Screen: Does the patient meet any 2 criteria? No. Patient's initial sepsis screen is negative. Does the patient have a suspected source of infection? No. Patient's initial sepsis screen is negative. Historical: - Allergies: 15:07 No Known Drug Allergies; sv - PMHx: 15:07 Endometriosis; sv - PSHx: 15:07 ; D \T\ C; sv - Immunization history:: Adult Immunizations up to date. - Ebola Screening: : Patient denies travel to an Ebola-affected area in the 21 days before illness onset. Screenin:25 Abuse screen: Denies threats or abuse. Denies injuries from another. Nutritional aj1 screening: No deficits noted. Tuberculosis screening: No symptoms or risk factors identified. Assessment: 16:25 General: Appears in no apparent distress. uncomfortable, Behavior is calm, cooperative, aj1 appropriate for age. Pain: Complains of pain in dorsal aspect of proximal phalanx of left little finger and dorsal aspect of middle phalanx of left little finger Pain does not radiate. Neuro: Level of Consciousness is awake, alert, obeys commands, Oriented to person, place, time, situation. Cardiovascular: Patient's skin is warm and dry. Respiratory: Airway is patent Respiratory effort is even, unlabored, Respiratory pattern is regular, symmetrical. GI: No signs and/or symptoms were reported involving the gastrointestinal system. : No signs and/or symptoms were reported regarding the genitourinary system. EENT: No signs and/or symptoms were reported regarding the EENT system. Derm: Bruising that is on dorsal aspect of proximal phalanx of left little finger and dorsal aspect of middle phalanx of left little finger. Musculoskeletal: Range of motion: limited in DIP of left little finger and PIP of left little finger Swelling present in dorsal aspect of proximal phalanx of left little finger and dorsal aspect of middle phalanx of left little finger. Vital Signs: 15:07 BP 144 / 101; Pulse 84; Resp 18; Temp 97.6; Pulse Ox 99% ; Weight 90.72 kg; Height 5 sv ft. 8 in. (172.72 cm); Pain 7/10; 15:07 Body Mass Index 30.41 (90.72 kg, 172.72 cm) sv ED Course: 15:03 Patient arrived in ED. mr 15:03 Josh Juarez DO is Private Physician. mr 15:07 Triage completed. sv 15:07 Arm band placed on. sv 15:31 Elisabet Coley FNP-C is PHCP. kb 15:31 See Rosario MD is Attending Physician. kb 15:36 Hand Left 3 View XRAY In Process Unspecified. EDMS 15:47 Geetha Joseph, RN is Primary Nurse. aj1 16:25 Patient has correct armband on for positive identification. Bed in low position. Call aj1 light in reach. Side rails up X 1. 16:25 No provider procedures requiring assistance completed. Patient did not have IV access aj1 during this emergency room visit. aluminum finger splint applied to left pinky finger. Administered Medications: No medications were administered Outcome: 15:48 Discharge ordered by . kb 16:25 Discharged to home ambulatory. aj1 16:25 Condition: good 16:25 Discharge instructions given to patient, Instructed on discharge instructions, follow up and referral plans. medication usage, Demonstrated understanding of instructions, follow-up care, medications, Prescriptions given X 1. 16:29 Patient left the ED. aj1 Signatures: Dispatcher [employer] EDMS Elisabet Coley FNP-C FNP-Ckb Johnson, Angela, RN RN aj1 Em Bustos RN RN sv Jillian Wang mr Corrections: (The following items were deleted from the chart) 15:07 15:07 Pulse 84bpm; Resp 18bpm; Pulse Ox 99%; Temp 97.6F; sv sv 15:08 15:07 Pulse 84bpm; Resp 18bpm; Pulse Ox 99%; Temp 97.6F; 90.72 kg; Height 5 ft. 8 in.; sv BMI: 30.4; Pain 7/10; sv 15: 15:06 Acuity: COMPA 4 sv sv
--- NOTE | 2018-09-22 15:49 | EDPHYS ---
Physician Documentation [facility] Name: Felicia York Age: 32 yrs Sex: Female : 1985 Arrival Date: 09/22/2018 Time: 15:03 Bed 12 Private MD: Josh Juarez H ED Physician See Rosario HPI: 09/22 15:46 This 32 yrs old Female presents to ER via Ambulatory with complaints of kb Finger Injury. 15:46 The patient or guardian reports a contusion, decreased range of motion, injury, pain, kb swelling, tenderness. The complaints affect the dorsal aspect of proximal phalanx of left little finger and dorsal aspect of middle phalanx of left little finger. Context: The problem was sustained at home, resulted from rough housing. Onset: The symptoms/episode began/occurred 3 day(s) ago. Modifying factors: The symptoms are alleviated by nothing, the symptoms are aggravated by nothing. Associated signs and symptoms: The patient has no apparent associated signs or symptoms. Severity of symptoms: At their worst the symptoms were moderate, in the emergency department the symptoms are unchanged. The patient has not experienced similar symptoms in the past. The patient has not recently seen a physician. Historical: - Allergies: 15:07 No Known Drug Allergies; sv - PMHx: 15:07 Endometriosis; sv - PSHx: 15:07 ; D \T\ C; sv - Immunization history:: Adult Immunizations up to date. - Ebola Screening: : Patient denies travel to an Ebola-affected area in the 21 days before illness onset. ROS: 15:45 Constitutional: Negative for fever, chills, and weight loss, Cardiovascular: Negative kb for chest pain, palpitations, and edema, Respiratory: Negative for shortness of breath, cough, wheezing, and pleuritic chest pain, Abdomen/GI: Negative for abdominal pain, nausea, vomiting, diarrhea, and constipation, Skin: Negative for injury, rash, and discoloration, Neuro: Negative for headache, weakness, numbness, tingling, and seizure. 15:45 MS/extremity: Positive for injury or acute deformity, contusion, decreased range of motion, ecchymosis, pain, tenderness, of the dorsal aspect of middle phalanx of left little finger and dorsal aspect of proximal phalanx of left little finger. Exam: 15:45 Constitutional: This is a well developed, well nourished patient who is awake, alert, kb and in no acute distress. Head/Face: Normocephalic, atraumatic. Chest/axilla: Normal chest wall appearance and motion. Nontender with no deformity. No lesions are appreciated. Cardiovascular: Regular rate and rhythm with a normal S1 and S2. No gallops, murmurs, or rubs. Normal PMI, no JVD. No pulse deficits. Respiratory: Lungs have equal breath sounds bilaterally, clear to auscultation and percussion. No rales, rhonchi or wheezes noted. No increased work of breathing, no retractions or nasal flaring. Abdomen/GI: Soft, non-tender, with normal bowel sounds. No distension or tympany. No guarding or rebound. No evidence of tenderness throughout. Neuro: Awake and alert, GCS 15, oriented to person, place, time, and situation. Cranial nerves II-XII grossly intact. Motor strength 5/5 in all extremities. Sensory grossly intact. Cerebellar exam normal. Normal gait. 15:45 Musculoskeletal/extremity: Extremities: grossly normal except: noted in the dorsal aspect of proximal phalanx of left little finger and dorsal aspect of middle phalanx of left little finger: contusion, decreased ROM, ecchymosis, pain, swelling, tenderness, ROM: limited active range of motion due to pain, in the dorsal aspect of proximal phalanx of left little finger and dorsal aspect of middle phalanx of left little finger, Circulation is intact in all extremities. Sensation intact. Vital Signs: 15:07 BP 144 / 101; Pulse 84; Resp 18; Temp 97.6; Pulse Ox 99% ; Weight 90.72 kg; Height 5 sv ft. 8 in. (172.72 cm); Pain 7/10; 15:07 Body Mass Index 30.41 (90.72 kg, 172.72 cm) sv MDM: 15:31 Patient medically screened. kb 15:44 Data reviewed: vital signs, nurses notes. Data interpreted: Pulse oximetry: on room air kb is 99 %. Interpretation: normal. Counseling: I had a detailed discussion with the patient and/or guardian regarding: the historical points, exam findings, and any diagnostic results supporting the discharge/admit diagnosis, radiology results, the need for outpatient follow up, a orthopedic surgeon, to return to the emergency department if symptoms worsen or persist or if there are any questions or concerns that arise at home. 15:54 Test interpretation: by ED physician or midlevel provider: plain radiologic studies, wilfredo nondisplaced fracture of middle phalanx of left little finger. 09/22 15:08 Order name: Hand Left 3 View XRAY; Complete Time: 15:54 sv 09/22 15:47 Order name: Finger Splint; Complete Time: 16:24 kb Administered Medications: No medications were administered Disposition: 09/23 06:36 Co-signature as Attending Physician, See Rosario MD I agree with the assessment and [facility] plan of care. Disposition: 09/22/18 15:48 Discharged to Home. Impression: Nondisplaced fracture of medial phalanx of left little finger. - Condition is Stable. - Discharge Instructions: Finger Fracture, [id number]. - Prescriptions for Ultracet 37.5- 325 mg Oral Tablet - take 1 tablet by ORAL route every 6 hours; 16 tablet. - Work release form, Medication Reconciliation Form, Thank You Letter, Antibiotic Education, Prescription Opioid Use form. - Follow up: Emergency Department; When: As needed; Reason: Worsening of condition. Follow up: Private Physician; When: 2 - 3 days; Reason: Recheck today's complaints, Continuance of care, Re-evaluation by your physician. Signatures: Dispatcher [employer] EDVA Elisabet Coley, FREIGHT INSPECTOR-C FREIGHT INSPECTOR-Geetha Jack RN RN aj1 Em Bustos RN RN sv Anderson, Corey, MD MD [facility] Corrections: (The following items were deleted from the chart) 09/22 16:29 15:48 09/22/2018 15:48 Discharged to Home. Impression: Nondisplaced fracture of medial aj1 phalanx of left little finger. Condition is Stable. Prescriptions for Ultracet 37.5-325 mg Oral Tablet - take 1 tablet by ORAL route every 6 hours; 16 tablet. and Forms are Medication Reconciliation Form, Thank You Letter, Antibiotic Education, Prescription Opioid Use. Follow up: Emergency Department; When: As needed; Reason: Worsening of condition. Follow up: Private Physician; When: 2 - 3 days; Reason: Recheck today's complaints, Continuance of care, Re-evaluation by your physician. kb
--- NOTE | 2018-09-22 15:53 | RAD REPORT ---
EXAM DESCRIPTION: RAD - Hand Left 3 View - 09/22/2018 3:29 pm CLINICAL HISTORY: Pain;Swelling COMPARISON: No comparisons FINDINGS: Soft tissue swelling is seen involving the fifth finger. Lucency is noted in the middle ph alanx which is probably a fracture, nondisplaced.
[2018-09-22 16:43] VITALS: BP 144/101; TEMP 97.6; O2SAT 99
== END 2018-09-22 16:29 | disposition home or self-care (01) ==
LOC: ER 15:00
DX: S62.627A Displaced fracture of middle phalanx of left little finger, initial encounter for closed fracture (principal); X58.XXXA Exposure to other specified factors, initial encounter; Y93.9 Activity, unspecified; Y92.009 Unspecified place in unspecified non-institutional (private) residence as the place of occurrence of the external cause
CPT/HCPCS: 99283

== ENCOUNTER 2019-02-11 03:57 | Emergency (ER) | payer SELFPAY ==
[2019-02-11 04:27] LABS: Urine Blood TRACE (NEG); Urine Glucose NEGATIVE (NEG); Urine Protein NEGATIVE (NEG); Urine Specific Gravity 1.025 (1.005-1.030)
[2019-02-11] MEDS ORDERED: NA CHLORIDE 0.9% 2,000 ML ONE (04:32)
[2019-02-11] MEDS ORDERED: ONDANSETRON 4 MG/2 ML VIAL ONE (04:32)
[2019-02-11] MEDS ORDERED: MORPHINE 4 MG/ML SYR ONE (04:32)
[2019-02-11 04:34] LABS: Absolute Lymphocytes (CBC) 2.4 K/uL (0.7-4.9); Basophils % 0.6 % (0-1.3); Hematocrit 41.5 % (36.0-45.0); Lymphocytes % 29.8 % (15.3-44.8); MPV 9.1 fL (7.6-11.3); RBC Red Blood Cell Count 4.66 M/uL (3.86-4.86)
[2019-02-11 04:59] LABS: Albumin 4.3 g/dL (3.4-5.0); Bilirubin Direct 0.1 mg/dL (0-0.2); Bilirubin Total 0.3 mg/dL (0.2-1.0); Potassium 3.3 mmol/L (3.5-5.1); Protein, Total 7.5 g/dL (6.4-8.2)
[2019-02-11] MEDS ORDERED: HYDROMORPHONE HCL 0.5 MG/0.5 ML INJ ONE (04:59)
[2019-02-11] MEDS ORDERED: POTASSIUM CL SA 10 MEQ TAB PO ONE (05:16)
--- NOTE | 2019-02-11 06:04 | EDPHYS ---
Physician Documentation [facility] Name: Felicia York Age: 33 yrs Sex: Female : 1985 Arrival Date: 02/11/2019 Time: 03:58 Bed 13 Private MD: ED Physician Juan Carlos Maria HPI: 02/11 04:21 This 33 yrs old Female presents to ER via Ambulatory with complaints of pkl Nausea/Vomiting, Abdominal Pain, Headache. 04:21 The patient presents with abdominal pain in the lower abdomen. Onset: The pkl symptoms/episode began/occurred 3 week(s) ago. The symptoms do not radiate. Associated signs and symptoms: Pertinent positives: nausea. Historical: - Allergies: 04:01 No Known Allergies; jb4 - Home Meds: 04:01 Tramadol Oral [Active]; phentermine Oral once daily [Active]; jb4 - PMHx: 04:01 Endometriosis; jb4 - PSHx: 04:01 ; D \T\ C; jb4 - Immunization history:: Adult Immunizations up to date. - Social history:: Smoking status: Patient uses tobacco products, denies chronic smoking, but will smoke occasionally, Patient uses alcohol, only on a social basis. - Ebola Screening: : No symptoms or risks identified at this time. ROS: 04:21 Eyes: Negative for injury, pain, redness, and discharge, ENT: Negative for injury, pkl pain, and discharge, Neck: Negative for injury, pain, and swelling, Cardiovascular: Negative for chest pain, palpitations, and edema, Respiratory: Negative for shortness of breath, cough, wheezing, and pleuritic chest pain. 04:21 Abdomen/GI: Positive for abdominal pain, nausea, of the right lower quadrant and left lower quadrant. 04:21 Back: Negative for acute changes. 04:21 : Negative for urinary symptoms. 04:21 MS/extremity: Negative for acute changes. 04:21 Skin: Negative for rash. 04:21 Neuro: Negative for altered mental status. Exam: 04:21 Head/Face: Normocephalic, atraumatic. Eyes: Pupils equal round and reactive to light, pkl extra-ocular motions intact. Lids and lashes normal. Conjunctiva and sclera are non-icteric and not injected. Cornea within normal limits. Periorbital areas with no swelling, redness, or edema. ENT: Nares patent. No nasal discharge, no septal abnormalities noted. Tympanic membranes are normal and external auditory canals are clear. Oropharynx with no redness, swelling, or masses, exudates, or evidence of obstruction, uvula midline. Mucous membranes moist. Neck: Trachea midline, no thyromegaly or masses palpated, and no cervical lymphadenopathy. Supple, full range of motion without nuchal rigidity, or vertebral point tenderness. No Meningismus. Chest/axilla: Normal chest wall appearance and motion. Nontender with no deformity. No lesions are appreciated. Cardiovascular: Regular rate and rhythm with a normal S1 and S2. No gallops, murmurs, or rubs. Normal PMI, no JVD. No pulse deficits. Respiratory: Lungs have equal breath sounds bilaterally, clear to auscultation and percussion. No rales, rhonchi or wheezes noted. No increased work of breathing, no retractions or nasal flaring. 04:21 Abdomen/GI: Bowel sounds: normal, Palpation: soft, mild abdominal tenderness, in the right lower quadrant and left lower quadrant. 04:21 Back: Exam negative for acute changes. 04:21 : Exam negative for acute changes. 04:21 Musculoskeletal/extremity: Exam is negative for acute changes. 04:21 Skin: Exam negative for rash. 04:21 Neuro: Orientation: is normal, Mentation: is normal, Cranial nerves: grossly normal, Motor: is normal. Vital Signs: 04:01 BP 151 / 99; Pulse 82; Resp 16; Temp 98.0(O); Pulse Ox 100% on R/A; Weight 88.45 kg jb4 (R); Height 5 ft. 8 in. (172.72 cm); Pain 10/10; 04:33 BP 155 / 93; Pulse 67; Resp 16; Pulse Ox 100% on R/A; jb4 05:00 BP 147 / 95; Pulse 77; Resp 16; Pulse Ox 100% on R/A; jb4 06:02 BP 131 / 76; Pulse 77; Resp 16; Pulse Ox 100% on R/A; jb4 04:01 Body Mass Index 29.65 (88.45 kg, 172.72 cm) jb4 MDM: 04:02 Patient medically screened. pkl 05:59 Data reviewed: vital signs, nurses notes, lab test result(s), radiologic studies, CT pkl scan. ED course: Discussed lab. and CT Scan results with patient. Advised to follow up with Dr. Varner ( [employer]ANCH ACCOUNT MANAGER ) with her H/O endometriosis. Patient understood instructions. 02/11 04:20 Order name: Basic Metabolic Panel; Complete Time: 05:01 pkl 02/11 04:20 Order name: CBC with Diff; Complete Time: 04:40 pkl 02/11 04:20 Order name: Creatinine for Radiology; Complete Time: 05:01 pkl 02/11 04:20 Order name: Hepatic Function; Complete Time: 05:01 pkl 02/11 04:20 Order name: Lipase; Complete Time: 05:01 pkl 02/11 04:24 Order name: Urine Dipstick--Ancillary (enter results); Complete Time: 04:28 mw2 02/11 04:24 Order name: Urine --Ancillary (enter results); Complete Time: 04:28 mw2 02/11 04:28 Order name: CT Abd/Pelvis - IV Contrast Only pkl 02/11 04:20 Order name: IV Saline Lock; Complete Time: 04:29 pkl 02/11 04:20 Order name: Labs collected and sent; Complete Time: 04:29 pkl Administered Medications: 04:32 Drug: Zofran 4 mg Route: IVP; Site: right antecubital; jb4 04:55 Follow up: Response: No adverse reaction; Nausea unchanged jb4 04:34 Drug: morphine 4 mg {Note: Rass score of 0.} Route: IVP; Site: right antecubital; jb4 04:55 Follow up: Response: No adverse reaction; Pain is unchanged, physician notified; RASS: jb4 Alert and Calm (0) 04:35 Drug: NS 0.9% 1000 ml Route: IV; Rate: 1000 ml; Site: right antecubital; jb4 05:52 Follow up: Response: No adverse reaction; IV Status: Completed infusion; IV Intake: jb4 1000ml 05:00 Drug: Dilaudid 0.5 mg {Note: RASS Score 0.} Route: IVP; Site: right antecubital; jb4 05:30 Follow up: Response: No adverse reaction; Pain is unchanged, physician notified; RASS: jb4 Alert and Calm (0) 05:28 Drug: K-Dur 20 mEq Route: PO; jb4 05:52 Follow up: Response: No adverse reaction jb4 05:52 Drug: NS 0.9% 1000 ml Route: IV; Rate: 125 ml/hr; Site: right antecubital; jb4 06:16 Follow up: Response: No adverse reaction; IV Status: Order to discontinue infusion jb4 Disposition: 02/11/19 06:03 Discharged to Home. Impression: Lower abdominal pain. - Condition is Stable. - Prescriptions for Tylenol- Codeine #3 300-30 mg Oral Tablet - take 1 tablet by ORAL route every 8 hours As needed; 20 tablet. Zofran 4 mg Oral Tablet - take 1 tablet by ORAL route every 12 hours As needed; 10 tablet. - Medication Reconciliation Form, Thank You Letter, Antibiotic Education, Prescription Opioid Use form. - Follow up: Shannon Sosa MD; When: 2 - 3 days; Reason: Re-evaluation by your physician. - Problem is new. - Symptoms have improved. Signatures: Dispatcher [employer] EDNH Juan Carlos Maria MD MD pkl Adeel Gill RN RN jb4 Corrections: (The following items were deleted from the chart) 06:17 06:03 02/11/2019 06:03 Discharged to Home. Impression: Lower abdominal pain. Condition jb4 is Stable. Forms are Medication Reconciliation Form, Thank You Letter, Antibiotic Education, Prescription Opioid Use. Follow up: Shannon Sosa; When: 2 - 3 days; Reason: Re-evaluation by your physician. Problem is new. Symptoms have improved. pkl
--- NOTE | 2019-02-11 06:04 | ER ---
Nurse's Notes [facility] Name: Felicia York Age: 33 yrs Sex: Female : 1985 Arrival Date: 02/11/2019 Time: 03:58 Bed 13 Private MD: Diagnosis: Lower abdominal pain Presentation: 02/11 04:01 Presenting complaint: Patient states: I have had nausea, extreme abdominal pain, and a jb4 headache for the past 3 weeks and have lost 20 pounds in less than 10 days. 04:01 Transition of care: patient was not received from another setting of care. Onset of jb4 symptoms was January 21, 2019. Risk Assessment: Do you want to hurt yourself or someone else? Patient reports no desire to harm self or others. Initial Sepsis Screen: Does the patient meet any 2 criteria? No. Patient's initial sepsis screen is negative. Does the patient have a suspected source of infection? Yes: Acute abdominal pain. Care prior to arrival: None. 04:01 Method Of Arrival: Ambulatory jb4 04:01 Acuity: COMPA 3 jb4 Historical: - Allergies: 04:01 No Known Allergies; jb4 - Home Meds: 04:01 Tramadol Oral [Active]; phentermine Oral once daily [Active]; jb4 - PMHx: 04:01 Endometriosis; jb4 - PSHx: 04:01 ; D \T\ C; jb4 - Immunization history:: Adult Immunizations up to date. - Social history:: Smoking status: Patient uses tobacco products, denies chronic smoking, but will smoke occasionally, Patient uses alcohol, only on a social basis. - Ebola Screening: : No symptoms or risks identified at this time. Screenin:01 Abuse screen: Denies injuries from another. Nutritional screening: No deficits noted. jb4 Tuberculosis screening: No symptoms or risk factors identified. Fall Risk None identified. Assessment: 04:25 General: Appears in no apparent distress. uncomfortable, Behavior is calm, cooperative, jb4 appropriate for age. Pain: Complains of pain in suprapubic area, right lower quadrant and left lower quadrant Pain does not radiate. Pain currently is 10 out of 10 on a pain scale. Quality of pain is described as stabbing. Neuro: Level of Consciousness is awake, alert, obeys commands, Oriented to person, place, time, situation. Cardiovascular: Patient's skin is warm and dry. Respiratory: Airway is patent Respiratory effort is even, unlabored, Respiratory pattern is regular, symmetrical. GI: Abdomen is flat, non-distended, Bowel sounds present X 4 quads. Reports lower abdominal pain, nausea. : No deficits noted. No signs and/or symptoms were reported regarding the genitourinary system. EENT: No deficits noted. No signs and/or symptoms were reported regarding the EENT system. Derm: Skin is intact, Skin is pink, warm \T\ dry. Musculoskeletal: Circulation, motion, and sensation intact. Range of motion: intact in all extremities. 04:55 Reassessment: Patient appears in no apparent distress at this time. Patient and/or jb4 family updated on plan of care and expected duration. Pain level reassessed. Patient is alert, oriented x 3, equal unlabored respirations, skin warm/dry/pink. Pt reports that morphine had no effect on pain. Provider notified, see MAR for orders. 06:02 Reassessment: Patient appears in no apparent distress at this time. Patient and/or jb4 family updated on plan of care and expected duration. Pain level reassessed. Patient is alert, oriented x 3, equal unlabored respirations, skin warm/dry/pink. Vital Signs: 04:01 BP 151 / 99; Pulse 82; Resp 16; Temp 98.0(O); Pulse Ox 100% on R/A; Weight 88.45 kg jb4 (R); Height 5 ft. 8 in. (172.72 cm); Pain 10/10; 04:33 BP 155 / 93; Pulse 67; Resp 16; Pulse Ox 100% on R/A; jb4 05:00 BP 147 / 95; Pulse 77; Resp 16; Pulse Ox 100% on R/A; jb4 06:02 BP 131 / 76; Pulse 77; Resp 16; Pulse Ox 100% on R/A; jb4 04:01 Body Mass Index 29.65 (88.45 kg, 172.72 cm) jb4 ED Course: 03:58 Patient arrived in ED. ag3 04:01 Juan Carlos aMria MD is Attending Physician. pkl 04:01 Arm band placed on right wrist. jb4 04:01 Patient has correct armband on for positive identification. Placed in gown. Bed in low jb4 position. Call light in reach. Side rails up X 1. Pulse ox on. NIBP on. 04:12 Adeel Gill, RN is Primary Nurse. jb4 04:14 Triage completed. jb4 04:25 Initial lab(s) drawn, by me, sent to lab. Inserted saline lock: 20 gauge in right jb4 antecubital area, using aseptic technique. Blood collected. 04:29 Lipase Sent. jb4 04:29 Hepatic Function Sent. jb4 04:29 Creatinine for Radiology Sent. jb4 04:29 CBC with Diff Sent. jb4 04:29 Basic Metabolic Panel Sent. jb4 05:[address] via wheelchair. eh 05:34 CT Abd/Pelvis - IV Contrast Only In Process Unspecified. EDMS 06:02 Shannon Sosa MD is Referral Physician. pkl 06:15 No provider procedures requiring assistance completed. IV discontinued, intact, jb4 bleeding controlled, No redness/swelling at site. Pressure dressing applied. Administered Medications: 04:32 Drug: Zofran 4 mg Route: IVP; Site: right antecubital; jb4 04:55 Follow up: Response: No adverse reaction; Nausea unchanged jb4 04:34 Drug: morphine 4 mg {Note: Rass score of 0.} Route: IVP; Site: right antecubital; 4 04:55 Follow up: Response: No adverse reaction; Pain is unchanged, physician notified; RASS: [facility] Alert and Calm (0) 04:35 Drug: NS 0.9% 1000 ml Route: IV; Rate: 1000 ml; Site: right antecubital; jb4 05:52 Follow up: Response: No adverse reaction; IV Status: Completed infusion; IV Intake: jb4 1000ml 05:00 Drug: Dilaudid 0.5 mg {Note: RASS Score 0.} Route: IVP; Site: right antecubital; jb4 05:30 Follow up: Response: No adverse reaction; Pain is unchanged, physician notified; RASS: [facility] Alert and Calm (0) 05:28 Drug: K-Dur 20 mEq Route: PO; jb4 05:52 Follow up: Response: No adverse reaction jb4 05:52 Drug: NS 0.9% 1000 ml Route: IV; Rate: 125 ml/hr; Site: right antecubital; jb4 06:16 Follow up: Response: No adverse reaction; IV Status: Order to discontinue infusion jb4 Intake: 05:52 IV: 1000ml; Total: 1000ml. jb4 Outcome: 06:03 Discharge ordered by . faustina 06:15 Discharged to home ambulatory, with significant other. jb4 06:15 Condition: stable 06:15 Discharge instructions given to patient, significant other, Instructed on discharge instructions, follow up and referral plans. medication usage, Demonstrated understanding of instructions, follow-up care, medications, Prescriptions given X 2. 06:17 Patient left the ED. jb4 Signatures: Dispatcher [employer] EDMS Juan Carlos Maria MD MD pkl Hagler, Ervin eh Bryson, James RN RN jb4 Brittany Edwards ag3 Corrections: (The following items were deleted from the chart) 06:16 06:16 IV Status: Order to discontinue infusion jb4 jb4
[2019-02-11 06:25] VITALS: BP 131/76
[2019-02-11 06:33] VITALS: TEMP 100.5
[2019-02-11 06:35] VITALS: O2SAT 98
--- NOTE | 2019-02-11 10:11 | RAD REPORT ---
EXAM DESCRIPTION: CT - Abdomen Pelvis W Contrast - 02/11/2019 6:00 am CLINICAL HISTORY: 33-year-old female with abdominal pain across lower abdomen for three weeks with n ausea, loss 20 pounds in 10 days TECHNIQUE: Axial CT imaging of the abdomen and pelvis was performed following the administration of intravenous contrast.. Sagittal and coronal reconstructed images were then performed. The CT stud y is performed according to ALARA (as low as reasonably achievable) or ALARA/IMAGE GENTLY, with autom atic adjustment of mA and/or kV according to patient size. Performed on: 02/11/2019 at 5:24 AM. COMPARISON: 07/19/2018 FINDINGS: Lung bases: The lung bases are clear. Liver: The liver is normal in size and configuration. No focal hepatic abnormalities are identified. Liver attenuation is within normal limits. Spleen: The spleen is normal is size, configuration and attenuation. Gallbladder and bile duct: The gallbladder is well distended and unremarkable. There is no biliary ductal dilatation. Pancreas: The pancreas is grossly normal in size and configuration. Adrenal Glands: The adrenal glands are normal in size and configuration. Kidneys: The kidneys are normal in size and configuration. There is no evidence of hydronephrosis. Th ere is no evidence of nephrolithiasis. No definite solid or cystic renal mass lesions are identified. Stomach: The stomach is grossly normal. There is no definite hiatal hernia. Bowel: The bowel gas pattern is non specific and non obstructive. Appendix: The appendix is surgically absent. Free air: There is no evidence of free air. Free fluid: There is no evidence of free fluid. Vasculature: The aorta is normal in caliber and contour. The inferior vena cava is grossly unremarkab le. Lymphadenopathy: No pathologic lymphadenopathy is identified. Bladder: The bladder is incompletely distended and smooth in contour. Reproductive: The uterus is grossly within normal limits. Bones: No acute osseous abnormalities are identified. There are pars defects bilaterally at L5. Soft tissues: No focal soft tissue abnormalities are identified. IMPRESSION: 1. No evidence of acute intra-abdominal or intrapelvic pathology. 2. Prior appendectomy. 3. 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 Electronically signed by: Rosa Clark DO 02/11/2019 5:44 AM CDT Due to temporary technical issues with the PACS/Fluency reporting system, reports are being signed by the in house radiologist as a courtesy to ensure prompt reporting. The interpreting radiologist is f ully responsible for the content of the report.
== END 2019-02-11 06:17 | disposition home or self-care (01) ==
LOC: ER 03:57
DX: R10.30 Lower abdominal pain, unspecified (principal); Z72.0 Tobacco use
CPT/HCPCS: 36415; 74177; 80048; 80076; 81003; 81025; 83690; 85025; 96361; 96374; 96375; 99284; J1170; J2405; J7030; Q9967

== ENCOUNTER 2019-03-15 12:21 | Emergency (ER) | payer SELFPAY ==
--- NOTE | 2019-03-15 13:48 | RAD REPORT ---
EXAM DESCRIPTION: US - Transvaginal OB - 03/15/2019 1:39 pm CLINICAL HISTORY: Abdominal pain, pelvic pain COMPARISON: None. FINDINGS: An intrauterine gestational sac is present with yolk sac and small pole. Gestational sac is normal shape. Cardiac activity is recorded at 126 BPM. pole corresponds to a 6 week 1 d ay size. A small subchorionic hemorrhages present in the lower portion of the endometrial cavity. Cur rent size is not clinically significant. No myometrial mass. A 2.8 centimeter thin-walled anechoic right ovarian cyst is present. No left ovary abnormality. No bl ood or fluid in the cul de sac. IMPRESSION: A 6 week 1 day sized IUP is identified with heart rate 126 BPM. Small subchorionic hemorrhages present in the lower endometrial cavity not felt to be clinically sign ificant at the current size. A 2.8 centimeter right ovarian cyst present.
[2019-03-15 14:02] LABS: Hematocrit 38.2 % (36.0-45.0); Lymphocytes % 21.6 % (15.3-44.8); RBC Red Blood Cell Count 4.33 M/uL (3.86-4.86)
[2019-03-15 14:20] LABS: BUN Blood Urea Nitrogen 10 mg/dL (7-18); Bicarbonate 25 mmol/L (21-32); Glucose Level 85 mg/dL (74-106); Potassium 3.7 mmol/L (3.5-5.1); Sodium Level 139 mmol/L (136-145)
--- NOTE | 2019-03-15 15:05 | ER ---
Nurse's Notes [facility] Name: Felicia York Age: 33 yrs Sex: Female : 1985 Arrival Date: 03/15/2019 Time: 12:22 Bed 8 Private MD: Josh Juarez H Diagnosis: Abdominal and pelvic pain; related conditions, unspecified Presentation: 03/15 12:24 Presenting complaint: Patient states: about 7 weeks , and has been having left sv flank pain x 1 week. Denies vaginal bleeding. Transition of care: patient was not received from another setting of care. Onset of symptoms was March 2019. Risk Assessment: Do you want to hurt yourself or someone else? Patient reports no desire to harm self or others. Care prior to arrival: None. 12:24 Method Of Arrival: Ambulatory sv 12:24 Acuity: COMPA 2 sv 12:59 Initial Sepsis Screen: Does the patient meet any 2 criteria? No. Patient's initial ca1 sepsis screen is negative. Does the patient have a suspected source of infection? No. Patient's initial sepsis screen is negative. Triage Assessment: 12:24 General: Appears in no apparent distress. uncomfortable, Behavior is cooperative, sv appropriate for age, anxious. Pain: Complains of pain in anterior aspect of left lateral abdomen and left lower quadrant. Neuro: Level of Consciousness is awake, alert, obeys commands, Gait is steady. Respiratory: Respiratory effort is even, unlabored, Respiratory pattern is regular, symmetrical. : Denies vaginal bleeding. 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 - Social history:: Smoking status: Patient/guardian denies using tobacco. - Ebola Screening: : Patient negative for fever greater than or equal to 101.5 degrees Fahrenheit, and additional compatible Ebola Virus Disease symptoms Patient denies exposure to infectious person Patient denies travel to an Ebola-affected area in the 21 days before illness onset No symptoms or risks identified at this time. Screenin:56 Abuse screen: Denies threats or abuse. Denies injuries from another. Nutritional ca1 screening: No deficits noted. Tuberculosis screening: No symptoms or risk factors identified. Fall Risk None identified. Assessment: 12:56 General: Appears in no apparent distress. comfortable, Behavior is cooperative, ca1 appropriate for age, anxious. Pain: Complains of pain in left lower quadrant Pain radiates to low back area Pain currently is 7 out of 10 on a pain scale. Pain began 10 days ago Is intermittent. Neuro: Level of Consciousness is awake, alert, obeys commands, Oriented to person, place, time, situation, Appropriate for age. Cardiovascular: Heart tones S1 S2 present Capillary refill < 3 seconds Patient's skin is warm and dry. Pulses are all present. Respiratory: Airway is patent Respiratory effort is even, unlabored, Respiratory pattern is regular, symmetrical, Breath sounds are clear bilaterally. GI: Abdomen is round non-distended, Bowel sounds present X 4 quads. Abd is soft X 4 quads Abdomen is tender to palpation in left lower quadrant Reports nausea. : No deficits noted. No signs and/or symptoms were reported regarding the genitourinary system. Denies vaginal bleeding. EENT:. Derm: No deficits noted. No signs and/or symptoms reported regarding the dermatologic system. Musculoskeletal: Circulation, motion, and sensation intact. Capillary refill < 3 seconds, Range of motion: intact in all extremities. 13:55 Reassessment: Patient appears in no apparent distress at this time. Patient and/or ca1 family updated on plan of care and expected duration. Pain level reassessed. Patient is alert, oriented x 3, equal unlabored respirations, skin warm/dry/pink. 14:45 Reassessment: Patient appears in no apparent distress at this time. Patient and/or ca1 family updated on plan of care and expected duration. Pain level reassessed. Patient is alert, oriented x 3, equal unlabored respirations, skin warm/dry/pink. 15:28 Reassessment: Patient appears in no apparent distress at this time. Patient is alert, ca1 oriented x 3, equal unlabored respirations, skin warm/dry/pink. Pt states, feeling relieved and happy to have visited the ER Patient states feeling better. Vital Signs: 12:25 BP 182 / 98; Pulse 84; Resp 20; Temp 97.6; Pulse Ox 100% ; Weight 88.45 kg; Height 5 sv ft. 8 in. (172.72 cm); Pain 7/10; 13:02 BP 131 / 67; Pulse 92; Resp 17 S; Pulse Ox 100% on R/A; ca1 13:55 BP 129 / 71; Pulse 73; Resp 16 S; Pulse Ox 100% on R/A; ca1 14:45 BP 140 / 85; Pulse 76; Resp 17 S; Pulse Ox 100% on R/A; ca1 15:28 BP 136 / 73; Pulse 72; Resp 16 S; Pulse Ox 100% on R/A; ca1 12:25 Body Mass Index 29.65 (88.45 kg, 172.72 cm) sv ED Course: 12:22 Patient arrived in ED. rg4 12:23 Josh Juarez DO is Private Physician. rg4 12:25 Triage completed. sv 12:26 Arm band placed on. sv 12:30 Fabrizio Morel MD is Attending Physician. kdr 12:51 Essie Sierra RN is Primary Nurse. ca1 12:53 Placed in gown. Bed in low position. Call light in reach. Side rails up X 1. Warm jp3 blanket given. Verbal reassurance given. Pulse ox on. NIBP on. 12:53 Patient maintains SpO2 saturation greater than 95% on room air. jp3 12:56 No provider procedures requiring assistance completed. ca1 13:29 Transvaginal OB In Process Unspecified. EDMS 13:45 Initial lab(s) drawn, by pa, sent to lab. Inserted saline lock: 20 gauge in right ca1 antecubital area, using aseptic technique. Blood collected. 15:29 IV discontinued, intact, bleeding controlled, No redness/swelling at site. Pressure ca1 dressing applied. Administered Medications: No medications were administered Outcome: 15:04 Discharge ordered by . kdr 15:29 Discharged to home ambulatory. ca1 15:29 Condition: stable 15:29 Discharge instructions given to patient, Instructed on discharge instructions, follow up and referral plans. Demonstrated understanding of instructions, follow-up care. 15:30 Patient left the ED. ca1 Signatures: Dispatcher [employer] EDEm Padron RN RN Fabrizio Morel MD MD kdr Garcia, Rubi rg4 Khurram Reyes jp3 Acob, Essie, RN RN ca1 Corrections: (The following items were deleted from the chart) 12:24 Acuity: COMPA 3 sv sv 12:58 12:56 : No deficits noted. No signs and/or symptoms were reported regarding the ca1 genitourinary system. ca1
--- NOTE | 2019-03-15 15:05 | EDPHYS ---
Physician Documentation [facility] Name: Felicia York Age: 33 yrs Sex: Female : 1985 Arrival Date: 03/15/2019 Time: 12:22 Bed 8 Private MD: Josh Juarez H ED Physician Fabrizio Morel HPI: 03/15 13:53 This 33 yrs old Female presents to ER via Ambulatory with complaints of Flank kdr Pain, 7 Wks . 13:53 The patient presents with abdominal pain in the left lower quadrant. Onset: The kdr symptoms/episode began/occurred gradually, 1 week(s) ago. The symptoms do not radiate. Associated signs and symptoms: Pertinent positives: nausea and vomiting. The symptoms are described as achy, crampy, dull, intermittent, vague. Modifying factors: The symptoms are alleviated by nothing, the symptoms are aggravated by movement. Severity of pain: At its worst the pain was very mild mild in the emergency department the pain is unchanged. The patient has experienced similar episodes in the past, Has had three prior miscarriages that ended in about the same time frame. She denies vaginal bleeding or other significant ominous sign. The patient has not recently seen a physician. 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 - Social history:: Smoking status: Patient/guardian denies using tobacco. - Ebola Screening: : Patient negative for fever greater than or equal to 101.5 degrees Fahrenheit, and additional compatible Ebola Virus Disease symptoms Patient denies exposure to infectious person Patient denies travel to an Ebola-affected area in the 21 days before illness onset No symptoms or risks identified at this time. ROS: 13:53 Constitutional: Negative for fever, chills, and weight loss, Eyes: Negative for injury, kdr pain, redness, and discharge, ENT: Negative for injury, pain, and discharge, Neck: Negative for injury, pain, and swelling, Cardiovascular: Negative for chest pain, palpitations, and edema, Respiratory: Negative for shortness of breath, cough, wheezing, and pleuritic chest pain, Back: Negative for injury and pain, : Negative for injury, bleeding, discharge, and swelling, MS/Extremity: Negative for injury and deformity, Skin: Negative for injury, rash, and discoloration, Neuro: Negative for headache, weakness, numbness, tingling, and seizure activity. Psych: Negative for depression, anxiety, suicide ideation, homicidal ideation, and hallucinations, Allergy/Immunology: Negative for hives, rash, and allergies, Endocrine: Negative for neck swelling, polydipsia, polyuria, polyphagia, and marked weight changes, Hematologic/Lymphatic: Negative for swollen nodes, abnormal bleeding, and unusual bruising. 13:53 Abdomen/GI: Positive for abdominal pain, nausea and vomiting. Exam: 13:53 Constitutional: This is a well developed, well nourished patient who is awake, alert, kdr and in no acute distress. Head/Face: Normocephalic, atraumatic. Eyes: Pupils equal round and reactive to light, extra-ocular motions intact. Lids and lashes normal. Conjunctiva and sclera are non-icteric and not injected. Cornea within normal limits. Periorbital areas with no swelling, redness, or edema. Neck: Trachea midline, no thyromegaly or masses palpated, and no cervical lymphadenopathy. Supple, full range of motion without nuchal rigidity, or vertebral point tenderness. No Meningismus. Chest/axilla: Normal chest wall appearance and motion. Nontender with no deformity. No lesions are appreciated. Cardiovascular: Regular rate and rhythm with a normal S1 and S2. No gallops, murmurs, or rubs. Normal PMI, no JVD. No pulse deficits. Respiratory: Lungs have equal breath sounds bilaterally, clear to auscultation and percussion. No rales, rhonchi or wheezes noted. No increased work of breathing, no retractions or nasal flaring. Back: No spinal tenderness. No costovertebral tenderness. Full range of motion. Skin: Warm, dry with normal turgor. Normal color with no rashes, no lesions, and no evidence of cellulitis. MS/ Extremity: Pulses equal, no cyanosis. Neurovascular intact. Full, normal range of motion. Neuro: Awake and alert, GCS 15, oriented to person, place, time, and situation. Cranial nerves II-XII grossly intact. Motor strength 5/5 in all extremities. Sensory grossly intact. Cerebellar exam normal. Normal gait. Psych: Awake, alert, with orientation to person, place and time. Behavior, mood, and affect are within normal limits. 13:53 Abdomen/GI: Inspection: abdomen appears normal, Bowel sounds: normal, Palpation: soft, mild abdominal tenderness, in the left lower quadrant, Palpation does not make the pain appreciably worse. Vital Signs: 12:25 BP 182 / 98; Pulse 84; Resp 20; Temp 97.6; Pulse Ox 100% ; Weight 88.45 kg; Height 5 sv ft. 8 in. (172.72 cm); Pain 7/10; 13:02 BP 131 / 67; Pulse 92; Resp 17 S; Pulse Ox 100% on R/A; ca1 13:55 BP 129 / 71; Pulse 73; Resp 16 S; Pulse Ox 100% on R/A; ca1 14:45 BP 140 / 85; Pulse 76; Resp 17 S; Pulse Ox 100% on R/A; ca1 15:28 BP 136 / 73; Pulse 72; Resp 16 S; Pulse Ox 100% on R/A; ca1 12:25 Body Mass Index 29.65 (88.45 kg, 172.72 cm) sv MDM: 13:53 Data reviewed: vital signs, nurses notes, lab test result(s), radiologic studies. kdr Counseling: I had a detailed discussion with the patient and/or guardian regarding: the historical points, exam findings, and any diagnostic results supporting the discharge/admit diagnosis, lab results, radiology results, the need for outpatient follow up. 15:04 Patient medically screened. kdr 15:07 ED course: No protein in urine. kdr 03/15 12:57 Order name: Abo/rh Typing; Complete Time: 15:02 kdr 03/15 12:57 Order name: Basic Metabolic Panel; Complete Time: 14:32 kdr 03/15 12:57 Order name: CBC with Diff; Complete Time: 14:14 kdr 03/15 13:52 Order name: Bhcg kdr 03/15 13:53 Order name: HCG, Quantitative EDMS 03/15 14:56 Order name: Urine Dipstick--Ancillary (enter results) bd 03/15 12:57 Order name: IV Saline Lock; Complete Time: 13:50 kdr 03/15 12:57 Order name: Labs collected and sent; Complete Time: 13:50 kdr 03/15 12:57 Order name: NPO; Complete Time: 13:03 kdr 03/15 12:57 Order name: Urine Dipstick-Ancillary (obtain specimen); Complete Time: 13:03 kdr 03/15 13:10 Order name: Transvaginal OB; Complete Time: 14:14 EDMS 03/15 13:52 Order name: Labs - recollect needed; Complete Time: 14:22 bd 03/15 14:56 Order name: Urine --Ancillary (enter results) bd Administered Medications: No medications were administered Disposition: 03/15/19 15:04 Discharged to Home. Impression: Abdominal and pelvic pain, related conditions, unspecified. - Condition is Stable. - Discharge Instructions: Back Pain in , First Trimester of , [id number], Abdominal Pain, Adult, [id number], Abdominal Pain During , Gukf-by-Pmrp. - Medication Reconciliation Form, Thank You Letter form. - Follow up: Private Physician; When: 2 - 3 days; Reason: If symptoms return, Further diagnostic work-up, Recheck today's complaints, Continuance of care, Re-evaluation by your physician. - Problem is new. - Symptoms have improved. Signatures: Dispatcher [employer] [facility] Wandy Martinez Stephanie, AMI RN sv Fabrizio Morel MD MD kdr Essie Sierra RN RN ca1 Corrections: (The following items were deleted from the chart) 13:10 12:58 Pelvis Complete+US.RAD.BRZ ordered. [facility] EDWA 15:04 15:04 03/15/2019 15:04 Discharged to Home. Impression: Abdominal and pelvic pain. kdr Condition is Stable. Forms are Medication Reconciliation Form, Thank You Letter, Antibiotic Education, Prescription Opioid Use. Follow up: Private Physician; When: 2 - 3 days; Reason: If symptoms return, Further diagnostic work-up, Recheck today's complaints, Continuance of care, Re-evaluation by your physician. Problem is new. Symptoms have improved. kdr 15:30 15:04 03/15/2019 15:04 Discharged to Home. Impression: Abdominal and pelvic pain; ca1 related conditions, unspecified. Condition is Stable. Forms are Medication Reconciliation Form, Thank You Letter, Antibiotic Education, Prescription Opioid Use. Follow up: Private Physician; When: 2 - 3 days; Reason: If symptoms return, Further diagnostic work-up, Recheck today's complaints, Continuance of care, Re-evaluation by your physician. Problem is new. Symptoms have improved. kdr
[2019-03-15 15:24] LABS: Urine Blood NEGATIVE (NEG); Urine Glucose NEGATIVE (NEG); Urine Protein NEGATIVE (NEG)
[2019-03-15 15:54] VITALS: TEMP 97.6; O2SAT 100
[2019-03-15 16:00] VITALS: BP 136/73
== END 2019-03-15 15:30 | disposition home or self-care (01) ==
LOC: ER 12:21
DX: O26.891 Other specified pregnancy related conditions, first trimester (principal); Z3A.01 Less than 8 weeks gestation of pregnancy
CPT/HCPCS: 36415; 76817; 80048; 81003; 81025; 84702; 85025; 86900; 86901; 99284

== ENCOUNTER 2019-04-01 19:22 | Emergency (ER) | payer SELFPAY ==
[2019-04-01 21:01] LABS: Urine Blood NEGATIVE (NEG); Urine Glucose NEGATIVE (NEG); Urine Protein NEGATIVE (NEG); Urine Specific Gravity >1.030 (1.005-1.030)
[2019-04-01 21:15] LABS: Urine Bacteria <20 /HPF (<20); Urine Culture Reflex Order NOT NEEDED; Urine RBC NONE SEEN /HPF (NONE SEEN)
[2019-04-01] MEDS ORDERED: D5 0.9 NS 1,000 ML IV ONE (21:27)
--- NOTE | 2019-04-01 21:52 | RAD REPORT ---
EXAM DESCRIPTION: US - Transvaginal OB - 04/01/2019 9:43 pm CLINICAL HISTORY: ABD CRAMPING, COMPARISON: Transvaginal OB dated 03/15/2019 FINDINGS: A single gestational sac is seen within the uterus. The shape of the sac is within normal limits for gestational age. Within the sac is a single pole with crown-rump length of 17 mm, co rrelating to estimated gestational age of 8 weeks 0 days. Estimated date of delivery is 11/11/2019. Heart rate is 166 BPM. The placenta is not yet developed due to early gestational age. The maternal adnexa and left ovary are within normal limits. The right ovary was obscured by bowel ga s. Normal Doppler blood flow was demonstrated to the left ovary. IMPRESSION: Single live early intrauterine gestation with estimated gestational age of 8 weeks 0 day s, BETSY 11/11/2019.
[2019-04-01 22:08] LABS: Absolute Lymphocytes (CBC) 2.4 K/uL (0.7-4.9); Basophils % 0.6 % (0-1.3); Hematocrit 37.8 % (36.0-45.0); MPV 8.1 fL (7.6-11.3)
--- NOTE | 2019-04-01 22:27 | EDPHYS ---
Physician Documentation [facility] Name: Felicia York Age: 33 yrs Sex: Female : 1985 Arrival Date: 04/01/2019 Time: 19:24 Bed 17 Private MD: ED Physician Cecilio Anderson HPI: 04/01 22:21 This 33 yrs old Female presents to ER via Ambulatory with complaints of L gs Side Pain- 9 Wks Preg. 22:21 The patient presents to the emergency department with abdominal pain, of the left lower gs quadrant. The patient presents to the emergency department with ONSET 1 MONTH AGO. The estimated gestational age is 9 weeks. course: Leakage of Fluid: none appreciated, Ultrasound: the patient had an ultrasound, which was normal. Associated signs and symptoms: Pertinent negatives: vaginal bleeding, vaginal discharge. The patient has experienced similar episodes in the past, a few times. 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 - Social history:: Smoking status: Patient/guardian denies using tobacco. - Ebola Screening: : No symptoms or risks identified at this time. ROS: 22:21 All other systems are negative. gs Exam: 22:21 Head/Face: Normocephalic, atraumatic. Eyes: Pupils equal round and reactive to light, gs extra-ocular motions intact. Lids and lashes normal. Conjunctiva and sclera are non-icteric and not injected. Cornea within normal limits. Periorbital areas with no swelling, redness, or edema. ENT: Nares patent. No nasal discharge, no septal abnormalities noted. Tympanic membranes are normal and external auditory canals are clear. Oropharynx with no redness, swelling, or masses, exudates, or evidence of obstruction, uvula midline. Mucous membranes moist. Neck: Trachea midline, no thyromegaly or masses palpated, and no cervical lymphadenopathy. Supple, full range of motion without nuchal rigidity, or vertebral point tenderness. No Meningismus. Chest/axilla: Normal chest wall appearance and motion. Nontender with no deformity. No lesions are appreciated. Cardiovascular: Regular rate and rhythm with a normal S1 and S2. No gallops, murmurs, or rubs. Normal PMI, no JVD. No pulse deficits. Respiratory: Lungs have equal breath sounds bilaterally, clear to auscultation and percussion. No rales, rhonchi or wheezes noted. No increased work of breathing, no retractions or nasal flaring. Abdomen/GI: Soft, non-tender, with normal bowel sounds. No distension or tympany. No guarding or rebound. No evidence of tenderness throughout. Back: No spinal tenderness. No costovertebral tenderness. Full range of motion. Skin: Warm, dry with normal turgor. Normal color with no rashes, no lesions, and no evidence of cellulitis. MS/ Extremity: Pulses equal, no cyanosis. Neurovascular intact. Full, normal range of motion. Neuro: Awake and alert, GCS 15, oriented to person, place, time, and situation. Cranial nerves II-XII grossly intact. Motor strength 5/5 in all extremities. Sensory grossly intact. Cerebellar exam normal. Normal gait. 22:21 Constitutional: The patient appears alert, awake. Vital Signs: 19:31 BP 167 / 77; Pulse 82; Resp 16; Temp 97.8; Pulse Ox 100% on R/A; Weight 88.45 kg; hb Height 5 ft. 8 in. (172.72 cm); Pain 6/10; 20:30 BP 144 / 77; Pulse 93; Resp 17 S; Pulse Ox 99% on R/A; cc3 21:00 BP 153 / 83; Pulse 84; Resp 16 S; Pulse Ox 100% on R/A; cc3 22:20 BP 147 / 73; Pulse 85; Resp 16 S; Pulse Ox 99% on R/A; Pain 2/10; cc3 19:31 Body Mass Index 29.65 (88.45 kg, 172.72 cm) hb MDM: 20:53 Patient medically screened. gs 22:21 Differential diagnosis: MISCARRIAGE UTI DISCOMFORT . Data reviewed: vital gs signs, nurses notes, old medical records, lab test result(s), radiologic studies. Counseling: I had a detailed discussion with the patient and/or guardian regarding: the historical points, exam findings, and any diagnostic results supporting the discharge/admit diagnosis, the need for outpatient follow up. Response to treatment: the patient's symptoms have markedly improved after treatment. 22:23 Counseling: I had a detailed discussion with the patient and/or guardian regarding: the gs presence of at least one elevated blood pressure reading (>120/80) during this emergency department visit. Special discussion: I have referred the patient to see his PCP for further evaluation of high blood pressure. 04/01 20:37 Order name: Urine Microscopic Only; Complete Time: 22:19 04/01 20:42 Order name: Urine Dipstick--Ancillary (enter results); Complete Time: 22:19 ar5 04/01 20:42 Order name: Urine --Ancillary (enter results); Complete Time: 22:19 ar 04/01 20:52 Order name: Quantitative Hcg 04/01 20:52 Order name: CBC with Diff; Complete Time: 22:19 04/01 20:52 Order name: Transvaginal OB US; Complete Time: 22:19 04/01 20:37 Order name: Urine Dipstick-Ancillary (obtain specimen); Complete Time: 20:43 04/01 20:52 Order name: IV Saline Lock; Complete Time: 21:53 04/01 20:52 Order name: Labs collected and sent; Complete Time: 21:53 04/01 20:52 Order name: NPO; Complete Time: 21:08 Administered Medications: 21:45 Drug: D5-NS 1000 ml Route: IV; Rate: 1000 bolus; Site: right antecubital; cc3 22:40 Follow up: Response: No adverse reaction; IV Status: Completed infusion; IV Intake: cc3 1000ml Disposition: 04/01/19 22:26 Discharged to Home. Impression: related conditions, unspecified, first trimester. - Condition is Stable. - Discharge Instructions: Abdominal Pain During , Managing Your Hypertension. - Medication Reconciliation Form, Thank You Letter, Antibiotic Education, Prescription Opioid Use form. - Follow up: Private Physician; When: 1 - 2 days; Reason: Re-evaluation by your physician. Signatures: Dispatcher [employer] Melba Li RN RN Cecilio Ellison MD MD gs Cordel, Charlene cc3 Corrections: (The following items were deleted from the chart) 22:48 22:26 04/01/2019 22:26 Discharged to Home. Impression: related conditions, cc3 unspecified, first trimester. Condition is Stable. Forms are Medication Reconciliation Form, Thank You Letter, Antibiotic Education, Prescription Opioid Use. Follow up: Private Physician; When: 1 - 2 days; Reason: Re-evaluation by your physician. gs
--- NOTE | 2019-04-01 22:27 | ER ---
Nurse's Notes [facility] Name: Felicia York Age: 33 yrs Sex: Female : 1985 Arrival Date: 04/01/2019 Time: 19:24 Bed 17 Private MD: Diagnosis: related conditions, unspecified, first trimester Presentation: 04/01 19:29 Presenting complaint: Intermittent LLQ pain x 2 months. Pt reports she is 8-9 weeks hb , hx of miscarriage x 3, seen in ED 2 weeks ago for same s/s. Denies vaginal bleeding/discharge. Transition of care: patient was not received from another setting of care. Onset of symptoms was April 01, 2019. Risk Assessment: Do you want to hurt yourself or someone else? Patient reports no desire to harm self or others. Initial Sepsis Screen: Does the patient meet any 2 criteria? No. Patient's initial sepsis screen is negative. Does the patient have a suspected source of infection? No. Patient's initial sepsis screen is negative. Care prior to arrival: None. 19:29 Method Of Arrival: Ambulatory 19:29 Acuity: COMPA 3 hb Triage Assessment: 20:13 General: Appears in no apparent distress. uncomfortable, Behavior is calm, cooperative, cc3 appropriate for age. Pain: Complains of pain in left lower quadrant. 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 - Social history:: Smoking status: Patient/guardian denies using tobacco. - Ebola Screening: : No symptoms or risks identified at this time. Screenin:13 Abuse screen: Denies threats or abuse. Denies injuries from another. Nutritional cc3 screening: No deficits noted. Tuberculosis screening: No symptoms or risk factors identified. Fall Risk Ambulatory Aid- None/Bed Rest/Nurse Assist (0 pts). Gait- Normal/Bed Rest/Wheelchair (0 pts) Mental Status- Oriented to own ability (0 pts). Assessment: 20:13 General: Appears in no apparent distress. uncomfortable, Behavior is calm, cooperative, cc3 appropriate for age. Pain: Complains of pain in left lower quadrant. Neuro: Level of Consciousness is awake, alert, obeys commands, Oriented to person, place, time, situation, Appropriate for age. Cardiovascular: Denies chest pain, Heart tones S1 S2 present Capillary refill < 3 seconds in bilateral fingers Patient's skin is warm and dry. Respiratory: Airway is patent Respiratory effort is even, unlabored, Respiratory pattern is regular, symmetrical. GI: Abdomen is round Bowel sounds present X 4 quads. Abd is soft and non tender X 4 quads. : No signs and/or symptoms were reported regarding the genitourinary system. EENT: No signs and/or symptoms were reported regarding the EENT system. Derm: Skin is intact, is healthy with good turgor, Skin is pink, warm \T\ dry. normal. Musculoskeletal: Circulation, motion, and sensation intact. Range of motion: intact in all extremities. 21:25 Reassessment: Patient appears in no apparent distress at this time. Patient and/or cc3 family updated on plan of care and expected duration. Pain level reassessed. Patient is alert, oriented x 3, equal unlabored respirations, skin warm/dry/pink. 22:40 Reassessment: Patient appears in no apparent distress at this time. Patient and/or cc3 family updated on plan of care and expected duration. Pain level reassessed. Patient is alert, oriented x 3, equal unlabored respirations, skin warm/dry/pink. Dr. Anderson discharged the patient home, no prescription given. IV cannula removed and patient left ER vitally stable and ambulatory with her . No valuables left in the patient's room. Patient denies pain at this time. Patient states feeling better. Patient states symptoms have improved. Vital Signs: 19:31 BP 167 / 77; Pulse 82; Resp 16; Temp 97.8; Pulse Ox 100% on R/A; Weight 88.45 kg; hb Height 5 ft. 8 in. (172.72 cm); Pain 6/10; 20:30 BP 144 / 77; Pulse 93; Resp 17 S; Pulse Ox 99% on R/A; cc3 21:00 BP 153 / 83; Pulse 84; Resp 16 S; Pulse Ox 100% on R/A; cc3 22:20 BP 147 / 73; Pulse 85; Resp 16 S; Pulse Ox 99% on R/A; Pain 2/10; cc3 19:31 Body Mass Index 29.65 (88.45 kg, 172.72 cm) hb ED Course: 19:24 Patient arrived in ED. ds1 19:31 Triage completed. hb 19:31 Arm band placed on. hb 20:13 Rhiannon Benitez is Primary Nurse. cc3 20:13 Patient has correct armband on for positive identification. Bed in low position. Call cc3 light in reach. Side rails up X2. Pulse ox on. NIBP on. 20:38 Cecilio Anderson MD is Attending Physician. 21:43 Transvaginal OB US In Process Unspecified. EDMS 21:45 Inserted saline lock: 20 gauge in right antecubital area, using aseptic technique. cc3 Blood collected. 22:08 Ultrasound completed. hr 22:40 No provider procedures requiring assistance completed. IV discontinued, intact, cc3 bleeding controlled, No redness/swelling at site. Pressure dressing applied. Administered Medications: 21:45 Drug: D5-NS 1000 ml Route: IV; Rate: 1000 bolus; Site: right antecubital; cc3 22:40 Follow up: Response: No adverse reaction; IV Status: Completed infusion; IV Intake: cc3 1000ml Intake: 22:40 IV: 1000ml; Total: 1000ml. cc3 Outcome: 22:26 Discharge ordered by . gs 22:40 Discharged to home ambulatory, with family. cc3 22:40 Condition: stable 22:40 Discharge instructions given to patient, Instructed on discharge instructions, follow up and referral plans. Demonstrated understanding of instructions, follow-up care. 22:48 Patient left the ED. cc3 Signatures: Dispatcher [employer] EDMS Nicolle Nazario Ananya Arguelles ds1 Melba Gilbert, AMI RN Cecilio Anderson MD MD Rhiannon Benitez cc3 Corrections: (The following items were deleted from the chart) 19:33 19:29 Presenting complaint: Intermittent LLQ pain x 2 months. Pt reports she is 8-9 hb weeks , hx of miscarriage x 3, seen in ED 2 weeks ago for same s/s. hb
[2019-04-01 23:26] VITALS: TEMP 97.8
[2019-04-01 23:29] VITALS: BP 153/83; O2SAT 100
== END 2019-04-01 22:48 | disposition home or self-care (01) ==
LOC: ER 19:22
DX: O26.891 Other specified pregnancy related conditions, first trimester (principal); Z3A.09 9 weeks gestation of pregnancy
CPT/HCPCS: 36415; 76817; 81003; 81015; 81025; 84702; 85025; 96360; 99284; J7042

== ENCOUNTER 2019-05-20 12:40 | Emergency (ER) | payer SELFPAY ==
[2019-05-20] MEDS ORDERED: DIPHENHYDRAMINE 50 MG/ML VIAL ONE (13:56)
[2019-05-20] MEDS ORDERED: METOCLOPRAMIDE 10 MG/2mL INJ ONE (13:56)
[2019-05-20] MEDS ORDERED: NA CHLORIDE 0.9% 500 ML ONE (13:56)
[2019-05-20 13:59] LABS: Absolute Lymphocytes (CBC) 2.3 K/uL (0.7-4.9); Basophils % 0.5 % (0-1.3); Hematocrit 34.5 % (36.0-45.0); Lymphocytes % 20.8 % (15.3-44.8); MPV 8.4 fL (7.6-11.3); RBC Red Blood Cell Count 3.86 M/uL (3.86-4.86)
[2019-05-20 14:21] LABS: ALT/SGPT 17 U/L (12-78); AST/SGOT 10 U/L (15-37); Albumin 3.1 g/dL (3.4-5.0); Alkaline Phosphatase 44 U/L (45-117); BUN Blood Urea Nitrogen 10 mg/dL (7-18); Bicarbonate 28 mmol/L (21-32); Bilirubin Total 0.1 mg/dL (0.2-1.0); Glucose Level 79 mg/dL (74-106); Potassium 3.9 mmol/L (3.5-5.1); Protein, Total 6.4 g/dL (6.4-8.2); Sodium Level 137 mmol/L (136-145)
--- NOTE | 2019-05-20 16:05 | ER ---
Nurse's Notes [facility] Name: Felicia York Age: 33 yrs Sex: Female : 1985 Arrival Date: 05/20/2019 Time: 12:44 Bed 19 Private MD: Diagnosis: Headache Presentation: 05/20 13:00 Presenting complaint: Patient states: my OB wanted me to come to the ER, because i dont tw2 feel good, i have gotten headaches and mine have just gotten bad, tylenol is not helping, it feels like someone is stabbing me in the back of my head on the left side, and then on the my forehead, my blood pressure was high, i was 140/80's, i have an appt next week. Transition of care: patient was not received from another setting of care. Onset of symptoms was May 20, 2019. Risk Assessment: Do you want to hurt yourself or someone else? Patient reports no desire to harm self or others. Initial Sepsis Screen: Does the patient meet any 2 criteria? No. Patient's initial sepsis screen is negative. Does the patient have a suspected source of infection? No. Patient's initial sepsis screen is negative. Care prior to arrival: None. 13:00 Method Of Arrival: Ambulatory tw2 13:00 Acuity: COMPA 2 tw2 Triage Assessment: 13:02 Headache History: The patient has had previous headaches and this one is different than tw2 previous episodes, and this one is more severe than previous episodes. General: Appears uncomfortable, Behavior is calm, cooperative, appropriate for age. Pain: Complains of pain in forehead and left side of the back of head Pain currently is 7 out of 10 on a pain scale. Pain began 1 day ago. Also complains of photophobia. Neuro: Reports headache. 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 - Social history:: Smoking status: . - Ebola Screening: : Patient denies travel to an Ebola-affected area in the 21 days before illness onset. Screenin:45 Abuse screen: Denies threats or abuse. Denies injuries from another. Nutritional aj1 screening: No deficits noted. Tuberculosis screening: No symptoms or risk factors identified. 15:59 Fall Risk None identified. aj1 Assessment: 13:45 General: Appears in no apparent distress. uncomfortable, Behavior is calm, cooperative, aj1 appropriate for age. Pain: Complains of pain in left side of the back of head and forehead Pain does not radiate. Neuro: Level of Consciousness is awake, alert, obeys commands, Oriented to person, place, time, situation, Moves all extremities. Full function Gait is steady, Speech is normal, Facial symmetry appears normal, Reports headache. Cardiovascular: Patient's skin is warm and dry. Respiratory: Airway is patent Respiratory effort is even, unlabored, Respiratory pattern is regular, symmetrical. GI: No signs and/or symptoms were reported involving the gastrointestinal system. : No signs and/or symptoms were reported regarding the genitourinary system. EENT: No signs and/or symptoms were reported regarding the EENT system. Derm: No signs and/or symptoms reported regarding the dermatologic system. Skin is pink, warm \T\ dry. normal. Musculoskeletal: No signs and/or symptoms reported regarding the musculoskeletal system. Circulation, motion, and sensation intact. 14:45 Reassessment: Patient appears in no apparent distress at this time. No changes from aj1 previously documented assessment. Patient and/or family updated on plan of care and expected duration. Pain level reassessed. Patient is alert, oriented x 3, equal unlabored respirations, skin warm/dry/pink. 15:45 Reassessment: Patient states that her headache is much better, but she is feeling very aj1 hungry. Notified MOR Whitaker. Okay to feed patient, patient given a turkey sandwich and a bag of chips. 16:22 Reassessment: Patient appears in no apparent distress at this time. No changes from aj1 previously documented assessment. Patient and/or family updated on plan of care and expected duration. Pain level reassessed. Patient is alert, oriented x 3, equal unlabored respirations, skin warm/dry/pink. Vital Signs: 13:04 BP 149 / 86; Pulse 108; Resp 17; Temp 98.8(TE); Pulse Ox 100% on R/A; Weight 99.79 kg tw2 (M); Height 5 ft. 8 in. (172.72 cm); Pain 7/10; 13:45 BP 119 / 72; Pulse 74; Resp 18; Pulse Ox 100% on R/A; aj1 14:45 BP 126 / 67; Pulse 67; Resp 16; Pulse Ox 100% on R/A; aj1 15:45 BP 122 / 67; Pulse 67; Resp 18; Pulse Ox 100% on R/A; aj1 13:04 Body Mass Index 33.45 (99.79 kg, 172.72 cm) tw2 ED Course: 12:44 Patient arrived in ED. mr 13:02 Triage completed. tw2 13:02 Arm band placed on. tw2 13:17 Sudhakar Pryor PA is PHCP. [facility] 13:17 Fabrizio Morel MD is Attending Physician. [facility] 13:44 Geetha Joseph RN is Primary Nurse. aj1 13:45 Patient has correct armband on for positive identification. Bed in low position. Call [facility] light in reach. Side rails up X 1. 13:45 No provider procedures requiring assistance completed. aj1 13:50 Initial lab(s) drawn, by ks, sent to lab. Inserted saline lock: 20 gauge in right aj1 antecubital area, using aseptic technique. Blood collected. 15:42 called and left a message for Dalton Ríos at [phone] to call Sudhakar JUARES. eb 15:[address] Hernandes with Sudhakar JUARES for patient consultation. eb 16:22 IV discontinued, intact, bleeding controlled, No redness/swelling at site. Pressure aj1 dressing applied. Administered Medications: 14:01 Drug: NS 0.9% 500 ml Route: IV; Rate: calculated rate; Site: right antecubital; aj1 16:21 Follow up: IV Status: Completed infusion; IV Intake: 500ml aj1 14:01 Drug: Reglan 10 mg Route: IVP; Site: right antecubital; aj1 16:21 Follow up: Response: No adverse reaction aj1 14:01 Drug: diphenhydrAMINE 12.5 mg Route: IVP; Site: right antecubital; aj1 16:22 Follow up: Response: No adverse reaction aj1 Intake: 16:21 IV: 500ml; Total: 500ml. aj1 Outcome: 16:03 Discharge ordered by . dmitriy 16:23 Discharged to home ambulatory. aj1 16:23 Condition: good 16:23 Discharge instructions given to patient, Instructed on discharge instructions, follow up and referral plans. Demonstrated understanding of instructions, follow-up care. 16:23 Patient left the ED. aj1 Signatures: Geetha Joseph RN RN aj1 Sudhakar Pryor PA PA jmm Rivera, Mary mr Wise, Tara, RN RN tw2 Julianne Fleming
--- NOTE | 2019-05-20 16:05 | EDPHYS ---
Physician Documentation [facility] Name: Felicia York Age: 33 yrs Sex: Female : 1985 Arrival Date: 05/20/2019 Time: 12:44 Bed 19 Private MD: ED Physician Fabrizio Morel HPI: 05/20 14:11 This 33 yrs old Female presents to ER via Ambulatory with complaints of 16 jmm wks , High Blood Pressure, Headache, Hand Swelling. 14:11 The patient complains of pain to the forehead, left latter-day, left side of forehead, left jmm temporal area, left occipital area and right occipital area. Onset: The symptoms/episode began/occurred gradually, 2 day(s) ago. Associated signs and symptoms: Pertinent negatives: fever, neck stiffness. This is a 33 year old female with a history of endometriosis that presents to the ED with complaints of headache, peripheral swelling beginning 2 days ago. Patient states her blood pressure has been consistently high. Patient was advised to go to the ED for further evaluation. . 15:45 . 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 - Social history:: Smoking status: . - Ebola Screening: : Patient denies travel to an Ebola-affected area in the 21 days before illness onset. ROS: 14:11 Constitutional: Negative for fever, chills, and weight loss, Cardiovascular: Negative jmm for chest pain, palpitations, and edema, Respiratory: Negative for shortness of breath, cough, wheezing, and pleuritic chest pain, Abdomen/GI: Negative for abdominal pain, nausea, vomiting, diarrhea, and constipation. 14:11 MS/extremity: Positive for swelling. 14:11 Neuro: Positive for headache. 14:11 All other systems are negative. Exam: 14:11 Constitutional: This is a well developed, well nourished patient who is awake, alert, jmm and in no acute distress. Head/Face: atraumatic. Eyes: EOMI, no conjunctival erythema appreciated ENT: Moist Mucus Membranes Neck: Trachea midline, Supple Chest/axilla: Normal chest wall appearance and motion. Cardiovascular: Regular rate and rhythm. No edema appreciated Respiratory: Normal respirations, no respiratory distress appreciated Abdomen/GI: Non distended, soft Back: Normal ROM 14:11 Musculoskeletal/extremity: mild peripheral edema appreciated. 14:11 Skin: Appearance: Color: normal in color. 14:11 Neuro: Orientation: is normal, Mentation: is normal, Memory: is normal. 14:11 Psych: Behavior/mood is pleasant, cooperative. Vital Signs: 13:04 BP 149 / 86; Pulse 108; Resp 17; Temp 98.8(TE); Pulse Ox 100% on R/A; Weight 99.79 kg tw2 (M); Height 5 ft. 8 in. (172.72 cm); Pain 7/10; 13:45 BP 119 / 72; Pulse 74; Resp 18; Pulse Ox 100% on R/A; aj1 14:45 BP 126 / 67; Pulse 67; Resp 16; Pulse Ox 100% on R/A; aj1 15:45 BP 122 / 67; Pulse 67; Resp 18; Pulse Ox 100% on R/A; aj1 13:04 Body Mass Index 33.45 (99.79 kg, 172.72 cm) tw2 MDM: 13:33 Patient medically screened. [facility] 16:01 Data reviewed: vital signs, nurses notes. Counseling: I had a detailed discussion with jovita the patient and/or guardian regarding: the historical points, exam findings, and any diagnostic results supporting the discharge/admit diagnosis, lab results, radiology results, the need for outpatient follow up, to return to the emergency department if symptoms worsen or persist or if there are any questions or concerns that arise at home. 16:02 ED course: FLORES relieved in the ED. BP WNL. No protein in UA. No visual disturbance. I do [facility] not currently suspect Preeclampsia. I discussed the patient with Dr. Hoffman whom will follow up with patient in clinic. Patient is otherwise given strict return precautions. patient understood and agrees with the plan of care. . 05/20 13:32 Order name: CBC with Diff; Complete Time: 14:07 [facility] 05/20 13:32 Order name: CMP; Complete Time: 14:24 [facility] 05/20 14:45 Order name: Urine Dipstick--Ancillary (enter results); Complete Time: 17:03 05/20 14:45 Order name: Urine --Ancillary (enter results); Complete Time: 17:03 05/20 13:17 Order name: Urine Dipstick-Ancillary (obtain specimen); Complete Time: 14:37 [facility] 05/20 13:31 Order name: Saline Lock; Complete Time: 14:02 [facility] Administered Medications: 14:01 Drug: NS 0.9% 500 ml Route: IV; Rate: calculated rate; Site: right antecubital; [facility] 16:21 Follow up: IV Status: Completed infusion; IV Intake: 500ml [facility] 14:01 Drug: Reglan 10 mg Route: IVP; Site: right antecubital; [facility] 16:21 Follow up: Response: No adverse reaction [facility] 14:01 Drug: diphenhydrAMINE 12.5 mg Route: IVP; Site: right antecubital; [facility] 16:22 Follow up: Response: No adverse reaction [facility] Disposition: 16:54 Co-signature as Attending Physician, Fabrizio Morel MD I agree with the assessment and kdr plan of care. Disposition: 05/20/19 16:03 Discharged to Home. Impression: Headache. - Condition is Stable. - Discharge Instructions: General Headache Without Cause. - Medication Reconciliation Form, Thank You Letter, Antibiotic Education, Prescription Opioid Use form. - Follow up: Private Physician; When: 2 - 3 days; Reason: Recheck today's complaints, Continuance of care, Re-evaluation by your physician. Signatures: Dispatcher [employer] Geetha Spence RN RN aj1 Fabrizio Morel MD MD kdr Mickail, Joel, PA PA jm Bria Chow RN RN tw2 Corrections: (The following items were deleted from the chart) 16:03 16:01 Counseling: I had a detailed discussion with the patient and/or guardian dmitriy regarding: the historical points, exam findings, and any diagnostic results supporting the discharge/admit diagnosis, lab results, radiology results, the need for outpatient follow up, to return to the emergency department if symptoms worsen or persist or if there are any questions or concerns that arise at home, dmitriy 16:23 16:03 05/20/2019 16:03 Discharged to Home. Impression: Headache. Condition is Stable. aj1 Forms are Medication Reconciliation Form, Thank You Letter, Antibiotic Education, Prescription Opioid Use. Follow up: Private Physician; When: 2 - 3 days; Reason: Recheck today's complaints, Continuance of care, Re-evaluation by your physician. dmitriy
[2019-05-20 16:21] LABS: Urine Blood NEGATIVE (NEG); Urine Glucose NEGATIVE (NEG); Urine Protein NEGATIVE (NEG)
[2019-05-20 16:54] VITALS: TEMP 98.8; O2SAT 100
[2019-05-20 16:59] VITALS: BP 122/67
== END 2019-05-20 16:23 | disposition home or self-care (01) ==
LOC: ER 12:40
DX: O26.892 Other specified pregnancy related conditions, second trimester (principal); R51 Headache
CPT/HCPCS: 36415; 80053; 81003; 81025; 85025; 96361; 96374; 96375; 99284; J1200; J2765; J7040

== ENCOUNTER 2019-10-15 00:07 | Emergency (ER) | payer SELFPAY ==
--- OUTSIDE RECORDS SUMMARY | 2019-10-15 00:22 | XMS REPORT ---
:1985 Author Organization [facility] t Address [address] [place] [address] [address] [place] [address] Care Team Providers Name Role Phone Unavailable Unavailable Unavailable Payers Payer Name Policy Type Policy Number Effective Date Expiration D ate Problems This patient has no known problems. Allergies, Adverse Reactions, Alerts Allergy Allergy Status Severity Reaction(s) Onset Inactive Treating C omments Name Type Date Date Clinician No Known DA Active U 2019-06 Allergies -22 00:00:0 0 CODEINE DA Active U 2006-08 00:00:0 0 No Known DA Active U 2006-08 Contrast - Allergies 00:00:0 0 No Known DA Active U 2006-08 Food -14 Allergies 00:00:0 0 No Known DA Active U 2006-08 Other - Allergies 00:00:0 0 Medications This patient has no known medications. Results Test Description Test Time Test Comments Text Results Atomic Results Result Comments [facility] 2019-10-08 RUN DATE: TUBE,BIOPSY 13:52:00 05/01/20 [facility] PAGE 1 RUN TIME: 1734 Specimen Inquiry RUN USER: INTERFACE PATIENT: OSBALDO MCCANN [facility] U #: [id number] AGE/SX: 33/F ROOM: [facility] RE10/06/19REG DR: Cecilio Hoffman MD : BED: A DIS: STATUS: ADM IN TLOC: SPEC #: [id number] RECD: 10/07/19 STATUS: BRENDA HERNANDEZ #: [id number] GABRIELLA: - SUBM DR: Cecilio Hoffman MD ENTERED: 10/07/19-1010 SP TYPE: FALLBX OTHR DR: ORDERED: LEVEL IV CODES: [id number] - FALLOPIAN TUBE PROCEDURES: LEVEL IV (Incomplete) TIS SUES: FALLOPIAN TUBE, NOS - RIGHT AND LEFT FALLOPIAN TUBE CLINICAL HISTORY Not p rovided (wpd) FINAL DIAGNOSIS Right fallopian tube, tubal ligation: - fallopian tube w ith complete surgical transection, no pathologic alteration Left fallopian tube, tubal ligation: - fallopian tube with complete surgical transection, no pathologic alteration CPT code(s): 50029 x2 pkg/kr GROSS DESCRIPTION ANATOMIC SOURCE OF TISSUE (per Requisition): Right and left fallopian tubes (received in 2 containers) Each specimen is labeled with the patient 's name and medical record number. Specimen #1 is designated "right fallopian tube" and consis ts of a 5.5 cm in length and 0.6 cm in diameter fimbriated fallopian tube. The serosa is pink-purple a nd hyperemic. The lumen is pinpoint. Tower Dragline Operator sections are submitted as A1. Specimen #2 i s designated "left fallopian tube" and consists of a 4.5 cm in length and 0.6 cm in diameter [facility] fallopian tube. The serosa is pink-purple and hyperemic. The lumen is pinpoint. Tower Dragline Operator s ections are submitted as B1. jovita/wpd 10/07/19 CONTINUED ON NEXT PAGE RUN DATE: 10/08/19 [facility] PAGE 2 RUN TIME: 1734 Specimen Inquiry RUN USER: INTERFACE SPEC #: [id number] PATIENT: OSBALDO SOLIS #[id number] (Continued) MICROSCOPIC DESCRIPTION Specimen #1 - the fallopian tube architecture is intact. The lumen is not dilated. A completely transected segment of fallopian tube is present. Specimen #2 - the fallopian tube a rchitecture is intact. The lumen is not dilated. A completely transected segment of fallopian tube is present. kaylene/roger Signed Tiny Jurado 10/08/19 1352 END OF REPORT HGB HCT 2019-10-07 05:07:00 Test Item Value Reference Range Comments HEMOGLOBIN (test code = HGB) 9.3 g/dL 10.7-13.9 HEMATOCRIT (test code = HCT) 28.3 % 32.1-42.1 Coronavirus 2018 nCoV [id number] 16:02:00 Test Item Value Reference Range Comments Coronavirus 2019 nCoV Negative Negative RESULTS C ALLED TO [facility] (test code = BACK & CONF IRMED? YBY F.LAB.GF [id number]) 10/06/19 1602 Th is result does not rule out co- infections with otherpathogens. * False negative results may occur if a specimen ibrahima torres collected, transported or h andled. False negativeresults may also occur if amplification inhibitors arepresent in th e specimen or if inadequate level s of virusesare present in the s pecimen. * As with any molecul ar test, if the virus mutates in thetarget region, COVID-19 may not be detected or may bedetected less predictably.TEST PERFORMED UNDER AN EMERGENCY USE AUTHORIZATION FROM FDA AG HEPATITIS B [id number] 07:07:00 Test Item Value Reference Range Comments AG HEPATITIS B SURFACE (test code = HBSAG) NONREACTIVE NONRE ACTIVE AB HEPATITIS C [id number] 07:07:00 Test Item Value Reference Range Comments AB HEPATITIS C (test code = HCVAB) NONREACTIVE NONREACTIVE SIGNAL TO CUTOFF (test code = CUTOFF) 0.13 <0.80 AB [id number] 07:07:00 Test Item Value Reference Range Comments AB TREPONEMA (test code = TREPAB) NONREACTIVE NONREACTIVE AG HEPATITIS B [id number] 06:50:00 Test Item Value Reference Range Comments AG HEPATITIS B SURFACE (test code = HBSAG) NONREACTIVE NONRE ACTIVE AB HEPATITIS C [id number] 06:50:00 Test Item Value Reference Range Comments AB HEPATITIS C (test code = HCVAB) NONREACTIVE SIGNAL TO CUTOFF (test code = CUTOFF) <0.80 AB [id number] 06:50:00 Test Item Value Reference Range Comments AB TREPONEMA (test code = TREPAB) NONREACTIVE NONREACTIVE CBC W/AUTO [id number] 02:32:00 Test Item Value Reference Range Comments WHITE BLOOD CELL (test code = WBC) 11.7 K/mm3 6.6-12.1 RED BLOOD CELL (test code = RBC) 3.55 M/mm3 3.45-5.01 HEMOGLOBIN (test code = HGB) 10.6 g/dL 10.7-13.9 HEMATOCRIT (test code = HCT) 32.3 % 32.1-42.1 MEAN CELL VOLUME (test code = MCV) 91 fL 84.1-94.8 MEAN CELL HGB (test code = MCH) 29.9 pg 27-35 MEAN CELL HGB CONCETRATION (test code = MCHC) 32.8 gm/dL 32 .2-34.1 RED CELL DISTRIBUTION WIDTH (test code = RDW) 13.2 % 12 .4-16.5 PLATELET COUNT (test code = PLT) 228 K/mm3 133-385 MEAN PLATELET VOLUME (test code = MPV) 10.7 fl 9.1-12.7 NEUTROPHIL % (test code = NT%) 66.8 % 56.5-79.4 LYMPHOCYTE % (test code = LY%) 20.9 % 14.3-34.3 MONOCYTE % (test code = MO%) 8.9 % 5.1-10.4 EOSINOPHIL % (test code = EO%) 2.3 % 0.1-3.0 BASOPHIL % (test code = BA%) 0.3 % 0.1-1.0 NEUTROPHIL # (test code = NT#) 7.8 K/mm3 LYMPHOCYTE # (test code = LY#) 2.5 K/mm3 MONOCYTE # (test code = MO#) 1.0 K/mm3 EOSINOPHIL # (test code = EO#) 0.27 K/mm3 BASOPHIL # (test code = BA#) 0.0 K/mm3 RBC MORPHOLOGY REQUIRED (test code = RBCM) NORMAL NEMO L PLATELET MORPHOLOGY REQUIRED (test code = PLTMR) NORMAL NORMAL URINALYSIS [id number] 23:53:00 Test Item Value Reference Range Comments UA COLOR (test code = COLU) DANIELA YELLOW UA APPEARANCE (test code = APPU) Slightly-Cloudy CLEAR UA GLUCOSE DIPSTICK (test code = DGLUU) NEGATIVE NEG UA BILIRUBIN DIPSTICK (test code = BILU) 1+ NEG UA KETONE DIPSTICK (test code = KETU) NEGATIVE NEG UA SPECIFIC GRAVITY (test code = SGU) 1.035 1.001-1.03 5 UA BLOOD DIPSTICK (test code = JAY JAY) NEG NEG UA PH DIPSTICK (test code = JOCELYNN) 5.0 5-9 UA PROTEIN DIPSTICK (test code = PROU) 1+ NEG UA UROBILINIOGEN DIPSTICK (test code = URO) 4.0 mg/dL NEG UA NITRITE DIPSTICK (test code = CANDIDO) NEG NEG UA LEUKOCYTE ESTERASE DIPSTICK (test code = NEG NEG LEUU) UA WBC (test code = WBCU) 0-2 #/hpf NONE SEEN UA RBC (test code = RBCU) 0-2 #/hpf NONE SEEN UA EPITHELIAL CELLS (test code = EPIU) RARE #/HPF RARE-FEW UA BACTERIA (test code = BACU) FEW /HPF RARE-FEW UA MUCUS (test code = MUCU) 4+ NONE SEEN Comments to Bronc Buster: CORETTA RICHARDSON SAMPLE: CLEAN [id number] 14:53:00 Test Item Value Reference Range Comments CREATININE (test code = CREAT) 0.9 mg/dL 0.5-1.0 [id number] 14:53:00 Test Item Value Reference Range Comments SGOT/AST (test code = AST) 46 units/L 15-37 [id number] 14:53:00 Test Item Value Reference Range Comments SGPT/ALT (test code = ALT) 39 units/L 12-78 URINALYSIS [id number] 14:28:00 Test Item Value Reference Range Comments UA COLOR (test code = COLU) DANIELA YELLOW UA APPEARANCE (test code = APPU) CLEAR CLEAR UA GLUCOSE DIPSTICK (test code = DGLUU) NEGATIVE NEG UA BILIRUBIN DIPSTICK (test code = BILU) NEGATIVE NEG UA KETONE DIPSTICK (test code = KETU) NEGATIVE NEG UA SPECIFIC GRAVITY (test code = SGU) 1.017 1.001-1.03 5 UA BLOOD DIPSTICK (test code = AJY JAY) NEG NEG UA PH DIPSTICK (test code = JOCELYNN) 7.0 5-9 UA PROTEIN DIPSTICK (test code = PROU) NEGATIVE NEG UA UROBILINIOGEN DIPSTICK (test code = URO) 4.0 mg/dL NEG UA NITRITE DIPSTICK (test code = CANDIDO) NEG NEG UA LEUKOCYTE ESTERASE DIPSTICK (test code = LEUU) NEG NEG UA WBC (test code = WBCU) 0-2 #/hpf NONE SEEN UA RBC (test code = RBCU) 0-2 #/hpf NONE SEEN UA EPITHELIAL CELLS (test code = EPIU) FEW #/HPF RARE-FEW UA BACTERIA (test code = BACU) FEW /HPF RARE-FEW UA MUCUS (test code = MUCU) RARE NONE SEEN URINE SAMPLE: CLEAN CATCHComment MACCBC W/AUTO [id number] 14:24:00 Test Item Value Reference Range Comments WHITE BLOOD CELL (test code = WBC) 6.3 K/mm3 6.6-12.1 RED BLOOD CELL (test code = RBC) 3.65 M/mm3 3.45-5.01 HEMOGLOBIN (test code = HGB) 10.9 g/dL 10.7-13.9 HEMATOCRIT (test code = HCT) 34.0 % 32.1-42.1 MEAN CELL VOLUME (test code = MCV) 93 fL 84.1-94.8 MEAN CELL HGB (test code = MCH) 29.9 pg 27-35 MEAN CELL HGB CONCETRATION (test code = MCHC) 32.1 gm/dL 32 .2-34.1 RED CELL DISTRIBUTION WIDTH (test code = RDW) 12.9 % 12 .4-16.5 PLATELET COUNT (test code = PLT) 216 K/mm3 133-385 MEAN PLATELET VOLUME (test code = MPV) 10.4 fl 9.1-12.7 NEUTROPHIL % (test code = NT%) 65.8 % 56.5-79.4 LYMPHOCYTE % (test code = LY%) 21.6 % 14.3-34.3 MONOCYTE % (test code = MO%) 9.4 % 5.1-10.4 EOSINOPHIL % (test code = EO%) 2.4 % 0.1-3.0 BASOPHIL % (test code = BA%) 0.3 % 0.1-1.0 NEUTROPHIL # (test code = NT#) 4.2 K/mm3 LYMPHOCYTE # (test code = LY#) 1.4 K/mm3 MONOCYTE # (test code = MO#) 0.6 K/mm3 EOSINOPHIL # (test code = EO#) 0.15 K/mm3 BASOPHIL # (test code = BA#) 0.0 K/mm3 RBC MORPHOLOGY REQUIRED (test code = RBCM) NORMAL NEMO L PLATELET MORPHOLOGY REQUIRED (test code = PLTMR) NORMAL NORMAL URINALYSIS W/O [id number] 16:36:00 Test Item Value Reference Range Comments UA GLUCOSE DIPSTICK (test code = DGLUU) NEGATIVE NEGATIVE UA KETONE DIPSTICK (test code = KETU) TRACE NEGATIVE UA PROTEIN DIPSTICK (test code = PROU) NEGATIVE NEGATIVE IS NURSE PERFORMING TEST? SHAMEKA PROTEIN/CREATININE [id number] 16:36:00 Test Item Value Reference Range Comments UR PROTEIN RANDOM (test code = PROTU) 37.6 mg/dL UR CREATININE RANDOM (test code = CREATU) 290.4 mg/dL PROTEIN/CREATININE RATIO (test code = 120.0 mg/gcrea <200 P/CRATIO) IS NURSE PERFORMING TEST? [id number] 16:16:00 Test Item Value Reference Range Comments CREATININE (test code = CREAT) 0.7 mg/dL 0.5-1.0 [id number] 16:16:00 Test Item Value Reference Range Comments SGOT/AST (test code = AST) 15 units/L 15-37 [id number] 16:16:00 Test Item Value Reference Range Comments SGPT/ALT (test code = ALT) 16 units/L 12-78 CBC W/AUTO [id number] 15:58:00 Test Item Value Reference Range Comments WHITE BLOOD CELL (test code = WBC) 9.0 K/mm3 6.6-12.1 RED BLOOD CELL (test code = RBC) 3.53 M/mm3 3.45-5.01 HEMOGLOBIN (test code = HGB) 10.8 g/dL 10.7-13.9 HEMATOCRIT (test code = HCT) 32.3 % 32.1-42.1 MEAN CELL VOLUME (test code = MCV) 92 fL 84.1-94.8 MEAN CELL HGB (test code = MCH) 30.6 pg 27-35 MEAN CELL HGB CONCETRATION (test code = MCHC) 33.4 gm/dL 32 .2-34.1 RED CELL DISTRIBUTION WIDTH (test code = RDW) 12.9 % 12 .4-16.5 PLATELET COUNT (test code = PLT) 223 K/mm3 133-385 MEAN PLATELET VOLUME (test code = MPV) 10.5 fl 9.1-12.7 NEUTROPHIL % (test code = NT%) 79.7 % 56.5-79.4 LYMPHOCYTE % (test code = LY%) 12.5 % 14.3-34.3 MONOCYTE % (test code = MO%) 6.6 % 5.1-10.4 EOSINOPHIL % (test code = EO%) 0.7 % 0.1-3.0 BASOPHIL % (test code = BA%) 0.2 % 0.1-1.0 NEUTROPHIL # (test code = NT#) 7.2 K/mm3 LYMPHOCYTE # (test code = LY#) 1.1 K/mm3 MONOCYTE # (test code = MO#) 0.6 K/mm3 EOSINOPHIL # (test code = EO#) 0.06 K/mm3 BASOPHIL # (test code = BA#) 0.0 K/mm3 RBC MORPHOLOGY REQUIRED (test code = RBCM) NORMAL NEMO L PLATELET MORPHOLOGY REQUIRED (test code = PLTMR) NORMAL NORMAL URINALYSIS W/O [id number] 15:43:00 Test Item Value Reference Range Comments UA GLUCOSE DIPSTICK (test code = DGLUU) NEGATIVE NEGATIVE UA KETONE DIPSTICK (test code = KETU) TRACE NEGATIVE UA PROTEIN DIPSTICK (test code = PROU) NEGATIVE NEGATIVE IS NURSE PERFORMING TEST? SHAMEKA PROTEIN/CREATININE [id number] 15:43:00 Test Item Value Reference Range Comments UR PROTEIN RANDOM (test code = PROTU) mg/dL UR CREATININE RANDOM (test code = CREATU) mg/dL PROTEIN/CREATININE RATIO (test code = P/CRATIO) mg/gcrea <200 IS NURSE PERFORMING TEST? SHAMEKA PROTEIN [id number] 13:08:00 Test Item Value Reference Range Comments UR PROTEIN RANDOM (test 21.8 mg/dL code = PROTU) UR PROTEIN 24HR (test code 305 mg/24HR 20-150 RESUL TS CALLED TO [place] = [id number]) A.READ BACK & CO NFIRMED? YES.BY F.LAB.ELB 1 08/17/19 1308.Units for 2 4 HR Urine Protein have haydee nged: New Units = MG/24HR UR VOLUME (test code = VOL) 1400 ML COMPREHENSIVE METABOLIC [id number] 15:51:00 Test Item Value Reference Range Comments SODIUM (test code = NA) 139 mEq/L 135-145 POTASSIUM (test code = K) 3.3 mEq/L 3.5-5.0 CHLORIDE (test code = CL) 104 mEq/L 100-115 CARBON DIOXIDE (test code = CO2) 25 mEq/L 22-31 ANION GAP (test code = GAP) 13.20 10-20 GLUCOSE (test code = GLU) 112 mg/dL 65-110 BLOOD UREA NITROGEN (test code = BUN) 11 mg/dL 7-18 GLOMERULAR FILTRATION RATE (test code = GFR) 114 ml/min >60 CREATININE (test code = CREAT) 0.6 mg/dL 0.5-1.0 TOTAL PROTEIN (test code = PROT) 6.1 gm/dL 6.3-8.2 ALBUMIN (test code = ALB) 2.8 gm/dL 3.4-4.8 CALCIUM (test code = CA) 8.6 mg/dL 8.4-10.2 BILIRUBIN TOTAL (test code = BILT) 0.2 mg/dL 0.2-1.0 SGOT/AST (test code = AST) 14 units/L 15-37 SGPT/ALT (test code = ALT) 16 units/L 12-78 ALKALINE PHOSPHATASE TOTAL (test code = ALKP) 62 units/L 46 -116 CBC W/AUTO [id number] 15:25:00 Test Item Value Reference Range Comments WHITE BLOOD CELL (test code = WBC) 14.1 K/mm3 6.6-12.1 RED BLOOD CELL (test code = RBC) 3.44 M/mm3 3.45-5.01 HEMOGLOBIN (test code = HGB) 10.4 g/dL 10.7-13.9 HEMATOCRIT (test code = HCT) 32.6 % 32.1-42.1 MEAN CELL VOLUME (test code = MCV) 95 fL 84.1-94.8 MEAN CELL HGB (test code = MCH) 30.2 pg 27-35 MEAN CELL HGB CONCETRATION (test code = MCHC) 31.9 gm/dL 32 .2-34.1 RED CELL DISTRIBUTION WIDTH (test code = RDW) 12.7 % 12 .4-16.5 PLATELET COUNT (test code = PLT) 245 K/mm3 133-385 MEAN PLATELET VOLUME (test code = MPV) 10.6 fl 9.1-12.7 NEUTROPHIL % (test code = NT%) 75.2 % 56.5-79.4 LYMPHOCYTE % (test code = LY%) 16.4 % 14.3-34.3 MONOCYTE % (test code = MO%) 6.1 % 5.1-10.4 EOSINOPHIL % (test code = EO%) 0.7 % 0.1-3.0 BASOPHIL % (test code = BA%) 0.3 % 0.1-1.0 NEUTROPHIL # (test code = NT#) 10.6 K/mm3 LYMPHOCYTE # (test code = LY#) 2.3 K/mm3 MONOCYTE # (test code = MO#) 0.9 K/mm3 EOSINOPHIL # (test code = EO#) 0.10 K/mm3 BASOPHIL # (test code = BA#) 0.0 K/mm3 RBC MORPHOLOGY REQUIRED (test code = RBCM) NORMAL NEMO L PLATELET MORPHOLOGY REQUIRED (test code = PLTMR) NORMAL NORMAL UR CREATININE CLEARANCE [id number] 16:27:00 Test Item Value Reference Range Comments CREATININE CLEARANCE RESULT (test code = 180 ml/min 70-120 CREATCLR) CREATININE (test code = CREAT) 0.6 mg/dL 0.5-1.0 UR CREATININE RANDOM (test code = CREATU) 120.2 mg/dL UR VOLUME (test code = VOL) 1300 ML UR PROTEIN [id number] 16:27:00 Test Item Value Reference Range Comments UR PROTEIN RANDOM (test code 23.5 mg/dL = PROTU) UR PROTEIN 24HR (test code = 306 mg/24HR 20-150 RES ULTS CALLED TO [id number]) APRIL.READ MIKIE K & CONFIRMED? YES.B Y F.LAB.ELB1 08/14/19 1627.Un its for 24 HR Urine Protein badillo ve changed: New Units = MG/2 4HR AMNISURE (ROM) [id number] 15:13:00 Test Item Value Reference Range Comments AMNISURE (ROM) TEST (test code = AMNI) NON-RUPTURED NON-RUPTU RE : *Amnisure QC OK? YES- US FET BIO PH UT W/O [id number] 10:31:00 Patient Name: OSBALDO MCCANN Unit No: [id number] EXAMS: CPT CODE: [id number] US FET BIO PH UT W/O NST [address] [facility] [address], [place] [address] OBSTETRICAL BIOPHYSICAL ULTRASOUND REPORT Pat. Name: OSBALDO MCCANN Pat. No: [id number] Study Date: 08/14/2019 9:40am , Age: 05 1985, 33 Pregnancies: 6, Para 1132 LMP: Unknown GA by 1st: 28w6d GA by US: 28w5d GA Selected: 28w6d (From First S) BETSY: 10/31/2019 Referring MD: Cecilio Hoffman Slide Maker: Shante Lazo RDMS CPT4: USBPPWONST Hist/Ind: HTN SCAN 3 MEASUREMENTS AGE GROWTH EVALUATION Measurement GA Range Srce %for GA Ratios ----- ---- ------- BPD 7.2 cm 29w1d (34d9d-33d3k) Hadl BPD 57% FL/BPD 0.75 (0.71 - 0.87) HC 27.6 cm 29w6d (32f0l-41x7j) Hadl HC 71% FL/AC 0.21 (0.20 - 0.24) APD 8.2 cm APD HC/AC 1.10 (0.99 - 1.18) TAD 7.7 cm TAD CI 0.73 (0.70 - 0.86) A C 25.0 cm 29w1d (05u8b-87z2t) Hadl AC 56% FL 5.4 cm 28w0d (52r9q-88r5b) Hadl FL 33% HL 5.0 cm 29w2d (37a3a-62x9d) Gina HL 56% GA for sonogram 28w5d (40v4w-90q0y) Weight Estimate: based on (BPD,HC,AC,FL) Hadlock Weight: 1320 gm (1825-5542) Hadlo : 2lbs, 14oz Normal: 1287 gm (873-1857) Brenne Wt% 52% for 28.9 wks Cervical Length: 3.9 cm Heart Rate: 140 bpm Amniotic Fluid Index: 17.2cm (09.2-23.1) Q1: 3.3cm Q2: 2.9cm Q3: 6.5cm Q4: 4.4cm Biophysical Profile: 01/14 Breathin Tone: 2 Movement: 2 AFV: 2 CLINICAL SUMMARY Type of Gestation: Heredia Intrauterine in transverse HEAD RIGHTpresentation. size is appropriate for gestational age. growth: Consistent with normal growth motion and organs seen: heart motion seen body and limb movements observed tone noted breathing movements observed [facility] NAME: OSBALDO MCCANN Radiology Department PHYS: Cecilio Cavanaugh MD [address] : 1985 AGE: 33 SEX: F [place], [place] [address] LOC: Donovan3036 A PHONE #: [phone] EXAM DATE: 08/14/2019STATUS: ADM IN FAX #: [phone] RAD NO: Page 1 Signed Report (CONTINUED) Patient Name: OSBALDO MCCANN Unit No: [id number] EXAMS: CPT CODE: [id number] US FET BIO PH UT W/O NST 29655 <Continued> Placental location: Anterior Placental maturity : Grade 1 There is no evidence of placenta previa. Amniotic fluid volume is normal. Uterus and adnexa: No significant abnormality is seen. Thank you for allowing us to participate in the care of this patient. Janie Lovell M.D. Electronic Signature 08/14/2019 10:31am at 1031 Reported and signed by: Janie Lovell MD CC: Cecilio Hoffman Technologist: Shante Lazo RDMS Probe: Trnscrbd D/ (1031) t.JENNIFERG Orig Print D/T: S: 08/16/2019 (1155) [facility] NAME: OSBALDO MCCANN Radiology Department PHYS: Cecilio Cavanaugh MD [address] : 1985 AGE: 33 SEX: F [place], [place] [address] LOC: Gary A PHONE #: [phone] EXAM DATE: 08/14/2019 STATUS: ADM IN FAX #: [phone] RAD NO: Page 2 Signed Report Patient Name: OSBALDO MCCANN Unit No: [id number] EXAMS: CPT CODE: [id number] US FET BIO PH UT W/O NST [address]87 <Continued> [facility] NAME: OSBALDO MCCANN RadiologyDepartment PHYS: Cecilio Cavanaugh MD [address]OB: 1985 AGE: 33 SEX: F [place], [place] [address] LOC:Gary A PHONE #: [phone] EXAM DATE: 08/14/2019 STATUS: ADM IN FAX #: [phone] RAD NO: Page 3 Signed Report- US FLW [id number] 10:31:00 Patient Name: OSBALDO MCCANN Unit No: [id number] EXAMS: CPT CODE: [id number] [place] [address] [facility] [address] [place], [place] [address] OBSTETRICAL BIOPHYSICAL ULTRASOUND REPORT Pat. Name: OSBALDO MCCANN Pat. No: [id number] Study Date: 08/14/2019 9:40am , Age: 05 1985, 33 Pregnancies: 6, Para 1132 LMP: Unknown GA by 1st: 28w6d GA by US: 28w5d GA Selected: 28w6d (From First S) BETSY: 10/31/2019 Referring MD: JO PAUL Slide Maker: Shante Lazo RDMS CPT4: USPREGFU Admitting MD: CECILIO HOFFMAN Hist/Ind: HTN SCAN 3 MEASUREMENTS AGE GROWTH EVALUATION Measurement GA Range Srce %for GA Ratios ----- ------- BPD 7.2 cm 29w1d (40m3h-99g1w) Hadl BPD 57% FL/BPD 0.75 (0.71 - 0.87) HC 27.6 cm 29w6d (69n5o-73d9u) Hadl HC 71% FL/AC 0.21 (0.20 - 0.24) APD 8.2 cm APD HC/AC 1.10 (0.99 - 1.18) TAD 7.7 cm TAD CI 0.73 (0.70 - 0.86) AC 25.0 cm 29w1d (89z5m-82e1s) Hadl AC 56% FL 5.4 cm 28w0d (63y6h-55a0h) Hadl FL 33% HL 5.0 cm 29w2d (26w4d- 32w0d) Gian HL 56% GA for sonogram 28w5d (74i1k-54y2l) Weight Estimate: based on (BPD,HC,AC,FL) Hadlock Weight: 1320 gm (4379-6767) Hadlo : 2lbs, 14oz Normal: 1287 gm (873-1857) Brenne Wt% 52% for 28.9 wks Cervical Length: 3.9 cm Heart Rate: 140 bpm Amniotic Fluid Index: 17.2cm (09.2-23.1) Q1: 3.3cm Q2: 2.9cm Q3: 6.5cm Q4: 4.4cm Biophysical Profile: 01/14 Breathin Tone: 2 Movement: 2 AFV: 2 CLINICAL SUMMARY Type of Gestation: Heredia Intrauterine in transverse HEAD RIGHTpresentation. size is appropriate for gestational age. growth: Consistent with normal growth motion and organs seen: heart motion seen body and limb movements observed tone noted [facility] NAME: OSBALDO MCCANN Radiology Department PHYS: Cecilio Cavanaugh MD [address] : 1985 AGE: 33 SEX: F [place], [place] [address] LOC: Donovan3036 A PHONE #: [phone] EXAM DATE: 08/14/2019 STATUS: ADM IN FAX #: [phone] RAD NO: Page 1 Signed Report (CONTINUED) Patient Name: OSBALDO MCCANN Unit No: [id number] EXAMS: CPT [place]: [id number] [place] [address] <Continued> breathing movements observed Placental location: Anterior Placental maturity : Grade 1 There is no evidence of placenta previa. Amniotic fluid volume is normal. Uterus and adnexa: No significant abnormality is seen. Thank you for allowing us to participate in the care of this patient. Janie Lockett M.D. Electronic Signature 08/14/2019 10:31am at 1031 Reported and signed by: Janie Lovell MD CC: Cecilio Hoffman Technologist: Shante Lazo RDMS Probe: Trnscrbd D/ (1031) Jeffry Orig Print D/T: S: 08/14/2019 (1031) [facility] NAME: OSBALDO MCCANN Radiology Department PHYS: Cecilio Cavanaugh MD [address] : 1985 AGE: 33 SEX: [id number] LOC: Dhara6 A PHONE #: [phone] EXAM DATE: 08/14/2019 STATUS: ADM IN FAX #: [phone] RAD NO: Page 2 Signed Report Patient Name: OSBLADO MCCANN Unit No: [id number] EXAMS: CPT CODE: [id number] [place] [address] <Continued> [facility] NAME: OSBALDO MCCANN Radiology Department PHYS: Cecilio Cavanaugh MD [address] : 1985 AGE: 33 SEX: F [place] [address] LOC: [id number] A PHONE #: [phone] EXAM DATE: 08/14/2019 STATUS: ADM IN FAX #: [phone] RAD NO: Page 3 Signed ReportGLUCOSE 2HR 2019-08-14 09:45:00 Test Item Value Reference Range Comments GLUCOSE 2HR (test code = GLU2) 127 mg/dL 70-140 3HR GTT GLU2 GLU2HR from 306:CF:[id number].GLUCOSE [id number] 09:42:00 Test Item Value Reference Range Comments GLUCOSE 3HR (test code = GLU3) 116 mg/dL 65-110 3HR GTT GLU3 GLU3HR from 306:CF:[id number].GESTATION SCREEN [id number] 07:21:00 Test Item Value Reference Range Comments GESTATION SCREEN GLUCOSE (test code = GLU1S) 142 MG/DL <15 0 GLU GEST SCRN 1 HR GLU GLU1S from 306:CF:[id number].GLUCOSE [id number] 05:26:00 Test Item Value Reference Range Comments GLUCOSE FASTING (test code = GLUF) 93 mg/dL 65-110 GLU GEST SCRN GLUFAST GLUFAST from 306:CF:[id number].CHEMISTRY 7 [id number] 15:00:00 Test Item Value Reference Range Comments SODIUM (test code = NA) 136 mEq/L 135-145 POTASSIUM (test code = K) 3.7 mEq/L 3.5-5.0 CHLORIDE (test code = CL) 103 mEq/L 100-115 CARBON DIOXIDE (test code = CO2) 25 mEq/L 22-31 ANION GAP (test code = GAP) 11.80 10-20 GLUCOSE (test code = GLU) 87 mg/dL 65-110 BLOOD UREA NITROGEN (test code = BUN) 12 mg/dL 7-18 GLOMERULAR FILTRATION RATE (test code = GFR) 114 ml/min >60 CREATININE (test code = CREAT) 0.6 mg/dL 0.5-1.0 CALCIUM (test code = CA) 8.5 mg/dL 8.4-10.2 LIVER [id number] 15:00:00 Test Item Value Reference Range Comments TOTAL PROTEIN (test code = PROT) 6.4 gm/dL 6.3-8.2 ALBUMIN (test code = ALB) 2.7 gm/dL 3.4-4.8 BILIRUBIN TOTAL (test code = BILT) 0.2 mg/dL 0.2-1.0 BILIRUBIN DIRECT (test code = BILD) <0.1 mg/dL <0.2 SGOT/AST (test code = AST) 12 units/L 15-37 SGPT/ALT (test code = ALT) 12 units/L 12-78 ALKALINE PHOSPHATASE TOTAL (test code = ALKP) 62 units/L 46 -116 CBC W/AUTO [id number] 14:35:00 Test Item Value Reference Range Comments WHITE BLOOD CELL (test code = WBC) 10.8 K/mm3 6.6-12.1 RED BLOOD CELL (test code = RBC) 3.49 M/mm3 3.45-5.01 HEMOGLOBIN (test code = HGB) 10.6 g/dL 10.7-13.9 HEMATOCRIT (test code = HCT) 32.7 % 32.1-42.1 MEAN CELL VOLUME (test code = MCV) 94 fL 84.1-94.8 MEAN CELL HGB (test code = MCH) 30.4 pg 27-35 MEAN CELL HGB CONCETRATION (test code = MCHC) 32.4 gm/dL 32 .2-34.1 RED CELL DISTRIBUTION WIDTH (test code = RDW) 12.6 % 12 .4-16.5 PLATELET COUNT (test code = PLT) 260 K/mm3 133-385 MEAN PLATELET VOLUME (test code = MPV) 10.4 fl 9.1-12.7 NEUTROPHIL % (test code = NT%) 67.8 % 56.5-79.4 LYMPHOCYTE % (test code = LY%) 19.6 % 14.3-34.3 MONOCYTE % (test code = MO%) 8.3 % 5.1-10.4 EOSINOPHIL % (test code = EO%) 3.2 % 0.1-3.0 BASOPHIL % (test code = BA%) 0.4 % 0.1-1.0 NEUTROPHIL # (test code = NT#) 7.3 K/mm3 LYMPHOCYTE # (test code = LY#) 2.1 K/mm3 MONOCYTE # (test code = MO#) 0.9 K/mm3 EOSINOPHIL # (test code = EO#) 0.34 K/mm3 BASOPHIL # (test code = BA#) 0.0 K/mm3 RBC MORPHOLOGY REQUIRED (test code = RBCM) NORMAL NEMO L PLATELET MORPHOLOGY REQUIRED (test code = PLTMR) NORMAL NORMAL UR PROTEIN [id number] 13:01:00 Test Item Value Reference Range Comments UR PROTEIN RANDOM (test code 14.5 mg/dL = PROTU) UR PROTEIN 24HR (test code = 189 mg/24HR 20-150 Uni ts for 24 HR Urine Protein [id number]) have changed: N ew Units = MG/24HR UR VOLUME (test code = VOL) 1300 ML - US PREG AFTER [id number] 09:35:00 Patient Name: OSBALDO MCCANN Unit No: [id number] EXAMS: CPT CODE: [id number] US PREG AFTER TRI [address] [facility] [address], [place] [address] OBSTETRICAL ULTRASOUND REPORT Pat. Name: OSBALDO MCCANN Pat. No: [id number] Study Date: 07/29/2019 9:25pm , Age: 05 1985, 33 Pregnancies: 6, Para 1132 LMP: Unknown GA by 1st: 26w4d GA by US: 26w1d GA Selected: 26w4d (From First S) BETSY: 10/31/2019 Referring MD: JO PAUL Slide Maker: Julianne Portillo RDMS CPT4: [id number] Admitting MD: CECILIO HOFFMAN Hist/Ind: HIGH BP SCAN 2 MEASUREMENTS AGE GROWTH EVALUATION Measurement GA Range Srce %for GA Ratios ----- ---- ------- BPD 6.5 cm 26w3d (22e7m-42q1y) Hadl BPD 46% FL/BPD 0.75 (0.71 - 0.87) HC 24.2 cm 26w0d (58g7u-38o9q) Hadl HC 39% FL/AC 0.21 (0.20 - 0.24) APD 7.3 cm APD HC/AC 1.05 (1.00 - 1.19) TAD 7.3 cm TADCI 0.80 (0.70 - 0.86) AC 22.9 cm 27w1d (32p2e-11l1g) Hadl AC 63% FL 4.9 cm 26w1d (03j1n-44u6v) Hadl FL 40% HL 4.5 cm 26w5d (20m3b-37o6t) Gian HL 53% GA for sonogram 26w1d (36g3z-45p7v) Weight Estimate: based on (BPD,HC,AC,FL) Hadlock Weight: 992 gm (847-1137) Hadlock : 2lbs, 2oz Normal: 934 gm (621-1406) Asael Wt% 55% for 26.6 wks Cervical Length: 3.5 cm Heart Rate: 137 bpm Amniotic Fluid Index: 13.3cm (09.6-22.5) Q1: 4.8cm Q2: 3.9cmQ3: 3.4cm Q4: 1.3cm MATERNAL ANATOMY Ovaries LxHxW (cm) Right 2.4 x 2.0 x 1.8 Vol: 4.5cc Left 2.6 x 1.5 x 1.9 Vol: 3.9cc CLINICAL SUMMARY Type of Gestation: Heredia Intrauterine in vertex presentation. size is appropriate for gestational age. growth: Consistent with normal growth [facility] NAME: OSBALDO MCCANN Radiology Department PHYS: Cecilio Cavanaugh MD [address] : 1985 AGE: 33 SEX: F [place], [place] [address] LOC: .3048 A PHONE #: [phone] EXAM DATE: 07/29/2019 STATUS: ADM IN FAX #: [phone] RAD NO: Page 1 Signed Report (CONTINUED) Patient Name: OSBALDO MCCANN Unit No: [id number] EXAMS: CPT CODE: [id number] US PREG AFTER 1ST TRI 88573 <Continued> motion and organs seen: heart motion seen body and limb movements seen Four chamber heart observed Left ventricular outflow tract (LVOT) seen Right ventricular outflow tract (RVOT) seen Normal intracranial anatomy seen Umbilical cord insertion in fetus seen stomach, Renal Fossa, Bladder and Spine seen Three vessel umbilical cord noted abnormalities observed: None seen at this exam Difficult to image Placental location: Anterior Placental maturity : Grade 1 There is no evidence of placenta previa. MARGINAL CORD INSERTION IN PLACENTA IS SEEN. Amniotic fluid volume is normal. Uterus and adnexa: No significant abnormality is seen. Thank you for allowing us to participate in the care of this patient. Bharat Oneill M.D. Electronic Signature 07/30/2019 09:35am at 0935 Reported and signedby: Bharat Oneill MD CC: Cecilio Hoffman Technologist: Julianne Portillo RDMS Probe: Trnscrbd D/ (0935) t.SDR.YOS Orig Print D/T: S: 07/30/2019 (0935) [facility] NAME: OSBALDO MCCANN Radiology Department PHYS: Cecilio Cavanaugh MD [address] : 1985 AGE: 33 SEX: F [place], [place] [address] LOC: F.3048 A PHONE #: [phone] EXAM DATE: 07/29/2019 STATUS: ADM IN FAX #: [phone] RAD NO: Page 2 Signed Report Patient Name: OSBALDO MCCANN Unit No: [id number] EXAMS: CPT CODE: [id number] US PREG AFTER 1ST TRI 20000 <Continued> [facility] NAME: OSBALDO MCCANN Radiology Department PHYS: Cecilio Cavanaugh MD [address] : 1985 AGE: 33 SEX: F [place], [place] [address] LOC: Mitch Mcginnis PHONE #: [phone] EXAM DATE: 07/29/2019 STATUS: ADM IN FAX #: [phone] RAD NO: Page 3 Signed ReportGESTATION SCREEN [id number] 07:59:00 Test Item Value Reference Range Comments GESTATION SCREEN GLUCOSE (test code = GLU1S) 135 MG/DL <15 0 GLU GEST SCRN 1 HR GLU GLU1S from 220:CF:[id number].GLUCOSE [id number] 05:55:00 Test Item Value Reference Range Comments GLUCOSE FASTING (test code = GLUF) 96 mg/dL 65-110 GLU GEST SCRN GLUFAST GLUFAST from 220:[id number] 13:37:00 Test Item Value Reference Range Comments CREATININE (test code = CREAT) 0.7 mg/dL 0.5-1.0 [id number] 13:37:00 Test Item Value Reference Range Comments SGOT/AST (test code = AST) 12 units/L 15-37 SGPT/[id number] 13:37:00 Test Item Value Reference Range Comments SGPT/ALT (test code = ALT) 15 units/L 12-78 ALKALINE PHOSPHATASE [id number] 13:37:00 Test Item Value Reference Range Comments ALKALINE PHOSPHATASE TOTAL (test code = ALKP) 50 units/L 46 -116 [id number] 13:37:00 Test Item Value Reference Range Comments AMYLASE (test code = RAISA) 30 units/L 30-110 [id number] 13:37:00 Test Item Value Reference Range Comments LIPASE (test code = LIP) 60 units/L 73-393 CBC W/AUTO [id number] 13:19:00 Test Item Value Reference Range Comments WHITE BLOOD CELL (test code = WBC) 9.5 K/mm3 6.6-12.1 RED BLOOD CELL (test code = RBC) 3.23 M/mm3 3.45-5.01 HEMOGLOBIN (test code = HGB) 9.6 g/dL 10.7-13.9 HEMATOCRIT (test code = HCT) 30.1 % 32.1-42.1 MEAN CELL VOLUME (test code = MCV) 93 fL 84.1-94.8 MEAN CELL HGB (test code = MCH) 29.7 pg 27-35 MEAN CELL HGB CONCETRATION (test code = MCHC) 31.9 gm/dL 32 .2-34.1 RED CELL DISTRIBUTION WIDTH (test code = RDW) 12.7 % 12 .4-16.5 PLATELET COUNT (test code = PLT) 227 K/mm3 133-385 MEAN PLATELET VOLUME (test code = MPV) 10.0 fl 9.1-12.7 NEUTROPHIL % (test code = NT%) 66.3 % 56.5-79.4 LYMPHOCYTE % (test code = LY%) 20.5 % 14.3-34.3 MONOCYTE % (test code = MO%) 8.7 % 5.1-10.4 EOSINOPHIL % (test code = EO%) 3.8 % 0.1-3.0 BASOPHIL % (test code = BA%) 0.3 % 0.1-1.0 NEUTROPHIL # (test code = NT#) 6.3 K/mm3 LYMPHOCYTE # (test code = LY#) 2.0 K/mm3 MONOCYTE # (test code = MO#) 0.8 K/mm3 EOSINOPHIL # (test code = EO#) 0.36 K/mm3 BASOPHIL # (test code = BA#) 0.0 K/mm3 RBC MORPHOLOGY REQUIRED (test code = RBCM) NORMAL NEMO L PLATELET MORPHOLOGY REQUIRED (test code = PLTMR) NORMAL NORMAL CHEMISTRY 7 [id number] 23:01:00 Test Item Value Reference Range Comments SODIUM (test code = NA) 140 mEq/L 135-145 POTASSIUM (test code = K) 3.8 mEq/L 3.5-5.0 CHLORIDE (test code = CL) 104 mEq/L 100-115 CARBON DIOXIDE (test code = CO2) 27 mEq/L 22-31 ANION GAP (test code = GAP) 12.70 10-20 GLUCOSE (test code = GLU) 99 mg/dL 65-110 BLOOD UREA NITROGEN (test code = BUN) 10 mg/dL 7-18 GLOMERULAR FILTRATION RATE (test code = GFR) 114 ml/min >60 CREATININE (test code = CREAT) 0.6 mg/dL 0.5-1.0 CALCIUM (test code = CA) 8.6 mg/dL 8.4-10.2 URIC [id number] 23:01:00 Test Item Value Reference Range Comments URIC ACID (test code = URIC) 3.7 mg/dL 2.6-6.0 [id number] 23:01:00 Test Item Value Reference Range Comments SGOT/AST (test code = AST) 22 units/L 15-37 [id number] 23:01:00 Test Item Value Reference Range Comments SGPT/ALT (test code = ALT) 26 units/L 12-78 CHEMISTRY 7 [id number] 22:51:00 Test Item Value Reference Range Comments SODIUM (test code = NA) 140 mEq/L 135-145 POTASSIUM (test code = K) 3.8 mEq/L 3.5-5.0 CHLORIDE (test code = CL) 104 mEq/L 100-115 CARBON DIOXIDE (test code = CO2) 27 mEq/L 22-31 ANION GAP (test code = GAP) 12.70 10-20 GLUCOSE (test code = GLU) 99 mg/dL 65-110 BLOOD UREA NITROGEN (test code = BUN) 10 mg/dL 7-18 GLOMERULAR FILTRATION RATE (test code = GFR) 114 ml/min >60 CREATININE (test code = CREAT) 0.6 mg/dL 0.5-1.0 CALCIUM (test code = CA) 8.6 mg/dL 8.4-10.2 URIC [id number] 22:51:00 Test Item Value Reference Range Comments URIC ACID (test code = URIC) 3.7 mg/dL 2.6-6.0 URINALYSIS [id number] 22:35:00 Test Item Value Reference Range Comments UA COLOR (test code = COLU) YELLOW YELLOW UA APPEARANCE (test code = APPU) CLEAR CLEAR UA GLUCOSE DIPSTICK (test code = DGLUU) NEGATIVE NEG UA BILIRUBIN DIPSTICK (test code = BILU) NEGATIVE NEG UA KETONE DIPSTICK (test code = KETU) TRACE NEG UA SPECIFIC GRAVITY (test code = SGU) 1.023 1.001-1.03 5 UA BLOOD DIPSTICK (test code = JAY JAY) NEG NEG UA PH DIPSTICK (test code = JOCELYNN) 5.0 5-9 UA PROTEIN DIPSTICK (test code = PROU) NEGATIVE NEG UA UROBILINIOGEN DIPSTICK (test code = URO) NEGATIVE mg/dL NEG UA NITRITE DIPSTICK (test code = CANDIDO) NEG NEG UA LEUKOCYTE ESTERASE DIPSTICK (test code = NEG NEG LEUU) UA WBC (test code = WBCU) 0-2 #/hpf NONE SEEN UA RBC (test code = RBCU) 0-2 #/hpf NONE SEEN UA EPITHELIAL CELLS (test code = EPIU) RARE #/HPF RARE-FEW UA BACTERIA (test code = BACU) NEGATIVE /HPF RARE-FEW UA MUCUS (test code = MUCU) RARE NONE SEEN Comments to Bronc Buster: CORETTA MCCORD SAMPLE: CLEAN CATCHCBC W/AUTO DIFF 2019-06-30 22:30:00 Test Item Value Reference Range Comments WHITE BLOOD CELL (test code = WBC) 10.9 K/mm3 6.6-12.1 RED BLOOD CELL (test code = RBC) 3.39 M/mm3 3.45-5.01 HEMOGLOBIN (test code = HGB) 10.4 g/dL 10.7-13.9 HEMATOCRIT (test code = HCT) 31.5 % 32.1-42.1 MEAN CELL VOLUME (test code = MCV) 93 fL 84.1-94.8 MEAN CELL HGB (test code = MCH) 30.7 pg 27-35 MEAN CELL HGB CONCETRATION (test code = MCHC) 33.0 gm/dL 32 .2-34.1 RED CELL DISTRIBUTION WIDTH (test code = RDW) 12.7 % 12 .4-16.5 PLATELET COUNT (test code = PLT) 236 K/mm3 133-385 MEAN PLATELET VOLUME (test code = MPV) 10.0 fl 9.1-12.7 NEUTROPHIL % (test code = NT%) 66.9 % 56.5-79.4 LYMPHOCYTE % (test code = LY%) 20.3 % 14.3-34.3 MONOCYTE % (test code = MO%) 8.5 % 5.1-10.4 EOSINOPHIL % (test code = EO%) 3.1 % 0.1-3.0 BASOPHIL % (test code = BA%) 0.4 % 0.1-1.0 NEUTROPHIL # (test code = NT#) 7.3 K/mm3 LYMPHOCYTE # (test code = LY#) 2.2 K/mm3 MONOCYTE # (test code = MO#) 0.9 K/mm3 EOSINOPHIL # (test code = EO#) 0.34 K/mm3 BASOPHIL # (test code = BA#) 0.0 K/mm3 RBC MORPHOLOGY REQUIRED (test code = RBCM) NORMAL NEMO L PLATELET MORPHOLOGY REQUIRED (test code = PLTMR) NORMAL NORMAL - US PREG UT [id number] 20:39:00 Patient Name: OSBALDO MCCANN Unit No: [id number] EXAMS: CPT CODE: [id number] US PREG UT TRANSVAGINAL 93707 Limited obstetrical ultrasound with transvaginal imaging of the cervix dated 06/26/2019. HISTORY: 21 week IUP. Elevated blood pressure. Headache. Bloody discharge. He transabdominal obstetrical ultrasound was performed reveals the presence of a single intrauterine pregnancyin transverse position with head on maternal left. The placenta is anteriorly positioned and demon strates grade 1 echotexture. There is no evidence of placenta previa or retroplacental hemorrhage. Amniotic fluid volume appears within normal limits with a SDP of 6.9. The cervix is closed with a measured cervical length of 4.4 cm on transvaginal imaging. measurements: The BPD measures 5.15 cm compatible with 21 weeks 4 days. The HC measures 19.5 cm compatible with 21 weeks 5 days. The AC measures 17.45 cm compatible with 22 weeks 3 days. The FL measures 3.64 cm compatible with 21 weeks 4 days. The estimated weight is 465 g (1 pound, 0 ounces). anatomy: A anatomic survey was not performed. cardiac activity is documented with a heart rate of 147 bpm. IMPRESSION: 1. Single living intrauterine with an estimated ultrasound gestational age of 22 weeks 0 days and an estimated date of delivery of 10/30/2019. SL: 131 at 2038 Reported and signed by: Jaiden Durham MD CC: Cecilio Hoffman Technologist: Shante Lazo RDMS Probe: [id number] Trnscrbd D/ (2038) t.SDR.DMM Orig Print D/T: S: 06/26/2019 (2041) [facility] NAME: OSBALDO MCCANNBETH Radiology Department PHYS: Cecilio Cavanaugh MD [address] : 1985 AGE: 33 SEX: [place] [address] LOC: DonovanROMAN PHONE #: [phone] EXAM DATE: 06/26/2019 STATUS: REG ER FAX #: [phone] RAD NO: Page 1 Signed Report Patient Name: OSBALDO MCCANN Unit No: [id number] EXAMS: CPT CODE: [id number] US PREG UT TRANSVAGINAL [address]1814 <Continued> [facility] NAME: OSBALDO MCCANN Radiology Department PHYS: Cecilio Cavanaugh MD [address] : 1985 AGE: 33 SEX: F [place] [address] LOC: DonovanROMAN PHONE #: [phone] EXAM DATE: 06/26/2019 STATUS: REG ER FAX #: [phone] RAD NO: Page 2 Signed Report- US FLW [id number] 20:39:00 Patient Name: OSBALDO MCCANN Unit No: [id number] EXAMS: CPT [place]: [id number] [address] Limited obstetrical ultrasound with transvaginal imaging of the cervix dated 06/26/2019. HISTORY: 21 week IUP. Elevated blood pressure. Headache. Bloody discharge. He transabdominal obstetrical ultrasound was performed reveals the presence of a single intrauterine pregnancyin transverse position with head on maternal left. The placenta is anteriorly positioned and demonstrates grade 1 echotexture. There is no evidence of placenta previa or retroplacental hemorrhage. Amniotic fluid volume appears within normal limits with a SDP of 6.9. The cervix is closed with a measured cervical length of 4.4 cm on transvaginal imaging. measurements: The BPD measures 5.15 cm compatible with 21 weeks 4 days. The HC measures 19.5 cm compatible with 21 weeks 5 days. The AC measures 17.45 cm compatible with 22 weeks 3 days. The FL measures 3.64 cm compatible with 21 weeks 4 days. The estimated weight is 465 g (1 pound, 0 ounces). anatomy: A anatomic survey was not performed. cardiac activity is documented with a heart rate of 147 bpm. IMPRESSION: 1. Single living intrauterine with an estimated ult rasound gestational age of 22 weeks 0 days and an estimated date of delivery of 10/30/2019. SL: 131 at 2038 Reported and signed by: Jaiden Durham MD CC: Jo Paul MD; [facility] Technologist: Shante Lazo RDMS Probe: Trnscrbd D/ (2038) t.SDR.DMM Orig Print D/T: S: 06/26/2019 (2041) [facility] NAME: OSBALDO MCCANN Radiology Department PHYS: HARSHA. Jo Paul MD [address] : 1985 AGE: 33 SEX: F [place] [address] LOC: [place].ROMAN PHONE #: [phone] EXAM DATE: 06/26/2019 STATUS: REG ER FAX #: [phone] RAD NO: Page 1 Signed Report Patient Name: OSBALDO MCCANN JULIANNE Unit No: [id number] EXAMS: CPT CODE: [id number] [place] [address] <Continued> [facility] NAME: OSBALDO MCCANN Radiology Department PHYS: HARSHA. Jo Paul MD [address] : 1985 AGE: 33 SEX: F [place] [address] LOC: [place].ROMAN PHONE #: [phone] EXAM DATE: 06/26/2019 STATUS: REG ER FAX #: [phone] RAD NO: Page 2 Signed ReportCOMPREHENSIVE METABOLIC PANEL 2019-06-26 20:15:00 Test Item Value Reference Range Comments SODIUM (test code = NA) 140 mEq/L 135-145 POTASSIUM (test code = K) 3.8 mEq/L 3.5-5.0 CHLORIDE (test code = CL) 104 mEq/L 100-115 CARBON DIOXIDE (test code = CO2) 27 mEq/L 22-31 ANION GAP (test code = GAP) 12.60 10-20 GLUCOSE (test code = GLU) 100 mg/dL 65-110 BLOOD UREA NITROGEN (test code = BUN) 9 mg/dL 7-18 GLOMERULAR FILTRATION RATE (test code = GFR) 114 ml/min >60 CREATININE (test code = CREAT) 0.6 mg/dL 0.5-1.0 TOTAL PROTEIN (test code = PROT) 5.5 gm/dL 6.3-8.2 ALBUMIN (test code = ALB) 2.7 gm/dL 3.4-4.8 CALCIUM (test code = CA) 8.5 mg/dL 8.4-10.2 BILIRUBIN TOTAL (test code = BILT) 0.2 mg/dL 0.2-1.0 SGOT/AST (test code = AST) 19 units/L 15-37 SGPT/ALT (test code = ALT) 27 units/L 12-78 ALKALINE PHOSPHATASE TOTAL (test code = ALKP) 45 units/L 46 -116 UA RFLX MICR CULT IF [id number] 19:55:00 Test Item Value Reference Range Comments UA COLOR (test code = COLU) STRAW YELLOW UA APPEARANCE (test code = APPU) CLEAR CLEAR UA GLUCOSE DIPSTICK (test code = DGLUU) NEGATIVE NEG UA BILIRUBIN DIPSTICK (test code = BILU) NEGATIVE NEG UA KETONE DIPSTICK (test code = KETU) NEGATIVE NEG UA SPECIFIC GRAVITY (test code = SGU) 1.008 1.001-1.03 5 UA BLOOD DIPSTICK (test code = JAY JAY) NEG NEG UA PH DIPSTICK (test code = JOCELYNN) 7.0 5-9 UA PROTEIN DIPSTICK (test code = PROU) NEGATIVE NEG UA UROBILINIOGEN DIPSTICK (test code = URO) NEGATIVE mg/dL NEG UA NITRITE DIPSTICK (test code = CANDIDO) NEG NEG UA LEUKOCYTE ESTERASE DIPSTICK (test code = NEG NEG LEUU) UA WBC (test code = WBCU) 0-2 #/hpf NONE SEEN UA RBC (test code = RBCU) 0-2 #/hpf NONE SEEN UA EPITHELIAL CELLS (test code = EPIU) RARE #/HPF RARE-FEW UA BACTERIA (test code = BACU) RARE /HPF RARE-FEW Indication for culture: Suprapubic PainUR PROTEIN/CREATININE [id number] 19:55:00 Test Item Value Reference Range Comments UR PROTEIN RANDOM (test code = PROTU) <6 mg/dL UR CREATININE RANDOM (test code = CREATU) 22.8 mg/dL PROTEIN/CREATININE RATIO (test code = 260.0 mg/gcrea <200 P/CRATIO) Indication for culture: Suprapubic PainUA RFLX MICR CULT IF INDICATED 2019-06-26 19:51:00 Test Item Value Reference Range Comments UA COLOR (test code = COLU) STRAW YELLOW UA APPEARANCE (test code = APPU) CLEAR CLEAR UA GLUCOSE DIPSTICK (test code = DGLUU) NEGATIVE NEG UA BILIRUBIN DIPSTICK (test code = BILU) NEGATIVE NEG UA KETONE DIPSTICK (test code = KETU) NEGATIVE NEG UA SPECIFIC GRAVITY (test code = SGU) 1.008 1.001-1.03 5 UA BLOOD DIPSTICK (test code = JAY JAY) NEG NEG UA PH DIPSTICK (test code = JOCELYNN) 7.0 5-9 UA PROTEIN DIPSTICK (test code = PROU) NEGATIVE NEG UA UROBILINIOGEN DIPSTICK (test code = URO) NEGATIVE mg/dL NEG UA NITRITE DIPSTICK (test code = CANDIDO) NEG NEG UA LEUKOCYTE ESTERASE DIPSTICK (test code = NEG NEG LEUU) UA WBC (test code = WBCU) 0-2 #/hpf NONE SEEN UA RBC (test code = RBCU) 0-2 #/hpf NONE SEEN UA EPITHELIAL CELLS (test code = EPIU) RARE #/HPF RARE-FEW UA BACTERIA (test code = BACU) RARE /HPF RARE-FEW Indication for culture: Suprapubic PainUR PROTEIN/CREATININE [id number] 19:51:00 Test Item Value Reference Range Comments UR PROTEIN RANDOM (test code = PROTU) mg/dL UR CREATININE RANDOM (test code = CREATU) mg/dL PROTEIN/CREATININE RATIO (test code = P/CRATIO) mg/gcrea <200 Indication for culture: Suprapubic PainCBC W/AUTO [id number] 19:47:00 Test Item Value Reference Range Comments WHITE BLOOD CELL (test code = WBC) 9.3 K/mm3 6.6-12.1 RED BLOOD CELL (test code = RBC) 3.35 M/mm3 3.45-5.01 HEMOGLOBIN (test code = HGB) 10.1 g/dL 10.7-13.9 HEMATOCRIT (test code = HCT) 31.5 % 32.1-42.1 MEAN CELL VOLUME (test code = MCV) 94 fL 84.1-94.8 MEAN CELL HGB (test code = MCH) 30.1 pg 27-35 MEAN CELL HGB CONCETRATION (test code = MCHC) 32.1 gm/dL 32 .2-34.1 RED CELL DISTRIBUTION WIDTH (test code = RDW) 12.4 % 12 .4-16.5 PLATELET COUNT (test code = PLT) 234 K/mm3 133-385 MEAN PLATELET VOLUME (test code = MPV) 10.3 fl 9.1-12.7 NEUTROPHIL % (test code = NT%) 63.0 % 56.5-79.4 LYMPHOCYTE % (test code = LY%) 22.7 % 14.3-34.3 MONOCYTE % (test code = MO%) 10.6 % 5.1-10.4 EOSINOPHIL % (test code = EO%) 2.9 % 0.1-3.0 BASOPHIL % (test code = BA%) 0.3 % 0.1-1.0 NEUTROPHIL # (test code = NT#) 5.8 K/mm3 LYMPHOCYTE # (test code = LY#) 2.1 K/mm3 MONOCYTE # (test code = MO#) 1.0 K/mm3 EOSINOPHIL # (test code = EO#) 0.27 K/mm3 BASOPHIL # (test code = BA#) 0.0 K/mm3 RBC MORPHOLOGY REQUIRED (test code = RBCM) NORMAL NEMO L PLATELET MORPHOLOGY REQUIRED (test code = PLTMR) NORMAL NORMAL
[2019-10-15 01:43] LABS: Basophils % 0.2 % (0-1.3); Lymphocytes % 26.1 % (15.3-44.8); MPV 8.3 fL (7.6-11.3)
[2019-10-15 01:47] LABS: Protime INR 0.94
[2019-10-15 01:58] LABS: ALT/SGPT 23 U/L (12-78); AST/SGOT 18 U/L (15-37); Albumin 2.9 g/dL (3.4-5.0); Alkaline Phosphatase 99 U/L (45-117); BUN Blood Urea Nitrogen 17 mg/dL (7-18); Bicarbonate 25 mmol/L (21-32); Bilirubin Direct < 0.1 mg/dL (0-0.2); Bilirubin Total 0.2 mg/dL (0.2-1.0); Glucose Level 103 mg/dL (74-106); Potassium 4.1 mmol/L (3.5-5.1); Protein, Total 6.8 g/dL (6.4-8.2); Sodium Level 142 mmol/L (136-145)
[2019-10-15 02:06] LABS: Urine Bacteria 20-50 /HPF (<20); Urine Culture Reflex Order REFLEXED; Urine Mucus 1+ /HPF (NONE SEEN); Urine RBC <5 /HPF (NONE SEEN)
--- NOTE | 2019-10-15 02:23 | EDPHYS ---
Physician Documentation [facility] Name: Felicia York Age: 33 yrs Sex: Female : 1985 Arrival Date: 10/15/2019 Time: 00:13 Bed 15 Private MD: ED Physician Jarrell Amato HPI: 10/14 00:56 This 33 yrs old Female presents to ER via Ambulatory with complaints of rn Headache, High Blood Pressure. 01:15 This 33 yrs old Female presents to ER via Ambulatory with complaints of rn Headache, High Blood Pressure. 01:03 The patient complains of pain to the top of head. rn 01:15 The patient describes the headache as aching. rn 01:16 Onset: The symptoms/episode began/occurred 2 day(s) ago. Severity of symptoms: At its rn worst the pain was moderate, in the emergency department the pain is unchanged. The symptoms are alleviated by nothing. the symptoms are aggravated by nothing. The patient has not experienced similar symptoms in the past. The patient has been recently seen by a physician:. Reports 1 week , , complicated by pre-eclampsia, delivered at [facility]. Reports has had swelling throughout but feels like got worse recently, just doesn't feel well, + headache, no focal neuro complaints, no vision problems, + mild incisional pain, + general fatigue and malaise. No fever. NO discharge. Denies chronic hypertension. . 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 - Social history:: Smoking status: Patient denies any tobacco usage or history of. - Family history:: not pertinent. - Hospitalizations: : No recent hospitalization is reported. ROS: 01:16 Constitutional: Negative for fever, chills, and weight loss, Eyes: Negative for injury, rn pain, redness, and discharge, Neck: Negative for injury, pain, and swelling, Cardiovascular: Negative for chest pain, palpitations, and edema, Respiratory: Negative for shortness of breath, cough, wheezing, and pleuritic chest pain, Abdomen/GI: Negative for abdominal pain, diarrhea, and constipation, MS/Extremity: Negative for injury and deformity, Skin: Negative for injury, rash, and discoloration, Neuro: + headache and general weakness Exam: 01:16 Constitutional: This is a well developed, well nourished patient who is awake, alert, rn tearful Head/Face: Normocephalic, atraumatic. Eyes: Pupils equal round and reactive to light, extra-ocular motions intact. Cardiovascular: Regular rate and rhythm. No pulse deficits. Respiratory: No increased work of breathing, no retractions or nasal flaring. Abdomen/GI: soft, non-tender, wound c/d/i, no dehiscence. Skin: Warm, dry, no rash MS/ Extremity: Pulses equal, no cyanosis. Neurovascular intact. Full, normal range of motion. Equal circumference. Neuro: Awake and alert, GCS 15, oriented to person, place, time, and situation. Cranial nerves II-XII grossly intact. Motor strength 5/5 in all extremities. Sensory grossly intact. Cerebellar exam normal. No clonus. Vital Signs: 00:27 BP 175 / 114; Pulse 92; Resp 18; Pulse Ox 99% on R/A; Weight 108.86 kg (R); Height 5 lp1 ft. 8 in. (172.72 cm); Pain 9/10; 00:40 BP 156 / 86; Pulse 84; Resp 18; Pulse Ox 98% on R/A; mg2 00:46 Temp 98.4(O); mg2 01:25 BP 126 / 84; Pulse 72; Resp 18; Pulse Ox 98% on R/A; wh 02:30 BP 136 / 79; Pulse 72; Resp 18; Pulse Ox 97% ; wh 00:27 Body Mass Index 36.49 (108.86 kg, 172.72 cm) lp1 Giselle Coma Score: 02:22 Eye Response: spontaneous(4). Verbal Response: oriented(5). Motor Response: obeys rn commands(6). Total: 15. MDM: 00:23 Patient medically screened. rn 02:17 ED course: No acute findings on CT head. . rn 02:20 ED course: LFTs normal, no protein in urine, repeat BP without BP meds is 126/79, neg rn ct head, normal LDH and platelets. Will dc home with OB f/u, return precautions given and understood. Repeat labs and BP can be monitored by OB for signs of pre-eclampsia. . 02:22 Differential diagnosis: headache, pre-eclampsia, HELLP syndrome. Data reviewed: vital rn signs, nurses notes, lab test result(s), radiologic studies, CT scan, and as a result, I will discharge patient. Counseling: I had a detailed discussion with the patient and/or guardian regarding: the historical points, exam findings, and any diagnostic results supporting the discharge/admit diagnosis, lab results, radiology results, the need for outpatient follow up, to return to the emergency department if symptoms worsen or persist or if there are any questions or concerns that arise at home. Response to treatment: the patient's symptoms have markedly improved after treatment, and as a result, I will discharge patient. 02:44 ED course: Had long discussion with patient, told her pre-eclampsia is a continuum, and rn this could be early on, needs to have bloodwork and BP repeated by her OB and tracked as is only 1 week . . 10/14 00:40 Order name: CBC with Diff; Complete Time: 01:50 rn 10/14 00:40 Order name: Basic Metabolic Panel; Complete Time: 02:15 rn 10/14 00:40 Order name: Protime (+inr); Complete Time: 02:15 rn 10/14 00:40 Order name: Ptt, Activated; Complete Time: 02:15 rn 10/14 00:40 Order name: LDH; Complete Time: 02:15 rn 10/14 00:40 Order name: LFT's; Complete Time: 02:15 rn 10/14 00:40 Order name: CT Head Brain wo Cont rn 10/14 00:40 Order name: Urine Microscopic Only; Complete Time: 02:15 rn 10/14 01:11 Order name: Uric Acid; Complete Time: 02:15 EDMS 10/14 02:08 Order name: Urine Culture EDMS 10/14 00:40 Order name: IV Start; Complete Time: 01:23 rn 10/14 00:40 Order name: Urine Dipstick-Ancillary (obtain specimen); Complete Time: 01:23 rn Administered Medications: 01:22 Drug: morphine 4 mg {Note: RASS 0.} Route: IVP; Site: right antecubital; wh 02:17 Follow up: Response: No adverse reaction; Pain is unchanged, physician notified 01:24 Drug: Zofran (Ondansetron) 4 mg Route: IVP; Site: right antecubital; 02:17 Follow up: Response: No adverse reaction; Nausea is decreased 02:30 Drug: morphine 4 mg {Note: RASS 0.} Route: IVP; Site: right antecubital; 02:47 Follow up: Response: No adverse reaction; Pain is decreased; RASS: Alert and Calm (0) Disposition: 10/15/19 02:22 Discharged to Home. Impression: Headache. - Condition is Stable. - Discharge Instructions: General Headache Without Cause. - Medication Reconciliation Form, Thank You Letter, Antibiotic Education, Prescription Opioid Use form. - Follow up: Private Physician; When: As needed; Reason: Recheck today's complaints, Re-evaluation by your physician. - Problem is an ongoing problem. - Symptoms have improved. Signatures: Dispatcher [employer] EDAL Jarrell Amato MD MD rn Pena, Laura, RN RN lp1 Turner Ferrell Corrections: (The following items were deleted from the chart) 01:11 01:06 URIC ACID+C.LAB.BRZ ordered. [facility] EDAL 02:49 02:22 10/15/2019 02:22 Discharged to Home. Impression: Headache. Condition is Stable. Forms are Medication Reconciliation Form, Thank You Letter, Antibiotic Education, Prescription Opioid Use. Follow up: Private Physician; When: As needed; Reason: Recheck today's complaints, Re-evaluation by your physician. Problem is an ongoing problem. Symptoms have improved. rn
--- NOTE | 2019-10-15 02:23 | ER ---
Nurse's Notes [facility] Name: Felicia York Age: 33 yrs Sex: Female : 1985 Arrival Date: 10/15/2019 Time: 00:13 Bed 15 Private MD: Diagnosis: Headache Presentation: 10/14 00:27 Chief complaint: Patient states: headache all days; states feet swelling x 2 days; lp1 patient had recent on 10/06/[address] Hoffman at [facility], on bedrest for 10 weeks prior due to pre-eclampsia; Patient upset, states "I just don't feel good"; States some incisional pain to RLQ of abdomen. Coronavirus screen: Proceed with normal triage. Ebola Screen: No symptoms or risks identified at this time. Initial Sepsis Screen: Does the patient meet any 2 criteria? No. Patient's initial sepsis screen is negative. Does the patient have a suspected source of infection? No. Patient's initial sepsis screen is negative. Risk Assessment: Do you want to hurt yourself or someone else? Patient reports no desire to harm self or others. Onset of symptoms was October 15, 2019. 00:27 Method Of Arrival: Ambulatory lp1 00:27 Acuity: COMPA 3 lp1 Triage Assessment: 00:30 Pain: Pain currently is 8 out of 10 on a pain scale. Pain began suddenly, Also wh complains of no other associated symptoms. 00:30 Headache History: The patient has had previous headaches. 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 - Social history:: Smoking status: Patient denies any tobacco usage or history of. - Family history:: not pertinent. - Hospitalizations: : No recent hospitalization is reported. Screenin:30 Abuse screen: Denies threats or abuse. Denies injuries from another. Nutritional lp1 screening: No deficits noted. Tuberculosis screening: No symptoms or risk factors identified. Fall Risk None identified. Assessment: 00:25 General: Appears in no apparent distress. Behavior is cooperative, crying. Pain: wh Complains of pain in top of head and RLQ incision pain. Neuro: Level of Consciousness is awake, alert, obeys commands, Oriented to person, place, time, situation, Appropriate for age Reports headache. Cardiovascular: Heart tones S1 S2. Respiratory: Airway is patent Respiratory effort is even, unlabored, Respiratory pattern is regular, symmetrical, Breath sounds are clear bilaterally. GI: Abdomen is flat, non-distended, Abd is soft and non tender X 4 quads. Reports lower abdominal pain. : No signs and/or symptoms were reported regarding the genitourinary system. EENT: No signs and/or symptoms were reported regarding the EENT system. Derm: Skin is intact, is healthy with good turgor, Skin is pink, warm \\T\\ dry. normal. Musculoskeletal: Circulation, motion, and sensation intact. 01:25 Reassessment: Patient appears in no apparent distress at this time. No changes from previously documented assessment. Patient and/or family updated on plan of care and expected duration. Pain level reassessed. Patient is alert, oriented x 3, equal unlabored respirations, skin warm/dry/pink. 02:30 Reassessment: Patient appears in no apparent distress at this time. No changes from previously documented assessment. Patient and/or family updated on plan of care and expected duration. Pain level reassessed. Patient is alert, oriented x 3, equal unlabored respirations, skin warm/dry/pink. Vital Signs: 00:27 BP 175 / 114; Pulse 92; Resp 18; Pulse Ox 99% on R/A; Weight 108.86 kg (R); Height 5 lp1 ft. 8 in. (172.72 cm); Pain 9/10; 00:40 BP 156 / 86; Pulse 84; Resp 18; Pulse Ox 98% on R/A; mg2 00:46 Temp 98.4(O); mg2 01:25 BP 126 / 84; Pulse 72; Resp 18; Pulse Ox 98% on R/A; wh 02:30 BP 136 / 79; Pulse 72; Resp 18; Pulse Ox 97% ; wh 00:27 Body Mass Index 36.49 (108.86 kg, 172.72 cm) lp1 Giselle Coma Score: 02:22 Eye Response: spontaneous(4). Verbal Response: oriented(5). Motor Response: obeys rn commands(6). Total: 15. ED Course: 00:13 Patient arrived in ED. bp1 00:16 Turner Ferrell is Primary Nurse. wh 00:23 Jarrell Amato MD is Attending Physician. rn 00:29 Triage completed. lp1 00:29 Arm band placed on. lp1 00:30 Patient has correct armband on for positive identification. Placed in gown. Bed in low wh position. Call light in reach. Side rails up X 1. Pulse ox on. NIBP on. 01:00 Inserted saline lock: 20 gauge in right antecubital area, using aseptic technique. Blood collected. 01:11 CT Head Brain wo Cont In Process Unspecified. EDMS 02:48 No provider procedures requiring assistance completed. IV discontinued, intact, bleeding controlled, No redness/swelling at site. Administered Medications: 01:22 Drug: morphine 4 mg {Note: RASS 0.} Route: IVP; Site: right antecubital; 02:17 Follow up: Response: No adverse reaction; Pain is unchanged, physician notified 01:24 Drug: Zofran (Ondansetron) 4 mg Route: IVP; Site: right antecubital; 02:17 Follow up: Response: No adverse reaction; Nausea is decreased 02:30 Drug: morphine 4 mg {Note: RASS 0.} Route: IVP; Site: right antecubital; 02:47 Follow up: Response: No adverse reaction; Pain is decreased; RASS: Alert and Calm (0) Outcome: 02:22 Discharge ordered by . rn 02:48 Discharged to home ambulatory. 02:48 Condition: stable 02:48 Discharge instructions given to patient, Instructed on discharge instructions, follow up and referral plans. POC Demonstrated understanding of instructions, follow-up care, POC 02:49 Patient left the ED. Signatures: Dispatcher [employer] EDMS Jarrell Amato MD MD rn Pena, Laura, RN RN 1 Turner Ferrell Star Queen RN RN [facility] BenitezeileenJessica wood bp1
[2019-10-15] MEDS ORDERED: MORPHINE 4 MG/ML SYR ONE (02:37)
[2019-10-15 11:00] VITALS: TEMP 98.4
[2019-10-15 11:03] VITALS: BP 136/79; O2SAT 97
--- NOTE | 2019-10-15 16:39 | RAD REPORT ---
EXAM DESCRIPTION: CT Head Without Intravenous Contrast CLINICAL HISTORY: The patient is 33 years old and is Female; HEADACHE TECHNIQUE: Axial computed tomography images of the head/brain without intravenous contrast. Sagitt al and coronal reformatted images were created and reviewed. This CT exam was performed using one o r more of the following dose reduction techniques: automated exposure control, adjustment of the mA and/or kV according to patient size, and/or use of iterative reconstruction technique. COMPARISON: No relevant prior studies available. FINDINGS: BRAIN: Unremarkable. The august-white matter differentiation is preserved . No hemorrhag e. No significant white matter disease. No edema. No extra-axial fluid collections. VENTRICLES: Unremarkable. No ventriculomegaly. BONES/JOINTS: No acute fracture. SOFT TISSUES: Unremarkable. SINUSES: Unremarkable as visualized. No acute sinusitis. MASTOID AIR CELLS: Unremarkable as visualized. No mastoid effusion. ORBITS: Unremarkable as visualized. IMPRESSION: No acute intracranial findings. Electronically signed by: Lindsay Pruett MD 10/15/2019 1:38 AM CDT Due to temporary technical issues with the PACS/Fluency reporting system, reports are being signed by the in house radiologist as a courtesy to ensure prompt reporting. The interpreting radiologist is f ully responsible for the content of the report.
== END 2019-10-15 02:49 | disposition home or self-care (01) ==
LOC: ER 00:07
DX: R51 Headache (principal)
CPT/HCPCS: 36415; 70450; 80048; 80076; 81015; 83615; 84550; 85025; 85610; 85730; 87086; 87088; 96374; 96375; 99284

== ENCOUNTER 2020-02-15 22:05 | Emergency (ER) | payer OTHER ==
--- OUTSIDE RECORDS SUMMARY | 2020-02-15 22:09 | XMS REPORT | Summary of Care ---
:1985 Author Organization [facility] Address [address] [place] [id number] Care Team Providers Name Role Phone Ryan Juarez Primary Care Provider Reason for Visit Reason Comments Exposure Encounter Details Date Type Department Care Team Description 02/01/2020 Laboratory Only [facility] Family Rajiv Oviedo, CODY [id number] [place] [address] Suspected 2019 [facility] [place], Adc Fam Pob I Coronavirus [address] [place] [address] Infection ([address] Dx) [place] [address] Allergies No Known Allergiesdocumented as of this encounter (statuses as of 02/01/2020) Medications Medication Sig Dispensed Refills Start Date End Date Status traMADOL (ULTRAM) 50 Take 1 tablet by 20 tablet 0 03/02/2017 Active mg tablet mouth every 6 (six) hours as needed for Pain (scale 7-10). documented as of this encounter (statuses as of 02/01/2020) Active Problems Not on filedocumented as of this encounter (statuses as of 02/01/2020) Social History Tobacco Use Types Packs/Day Years Used Date Never Assessed Sex Assigned at Date Recorded Not on file documented as of this encounter Last Filed Vital Signs Not on filedocumented in this encounter Nursing Notes Linda Avitia MA - 02/01/2020 4:00 PM Brenton Julianne York is a 34 year old female here for COVID Screening with a Nasopharyngeal Swab All droplet and contact precautions taken with appropriate PPE worn while interacting with patient. ? Goggles ? N95 Mask ? Gloves ? Gown Patient swabbed , both Nostrils. Patient educated on plan of care for visit, swabbing technique, risks and benefits of test and length of time to receive results. Verbal consent obtained to perform test. CDC Fact Sheet for Patients nCoV Diagnostic Panel dated 08/22/2019 and Factsheet What to Do if Sick with COVID 19 08/02/19 provided. Patient swabbed per appropriate nasopharyngeal technique, and patient tolerated well. Patient was discharged from the testing clinic in stable condition. Linda Avitia MA 02/01/2020 3:56 PM documented in this encounter Plan of Treatment Name Type Priority Associated Diagnoses Order S chedule COVID-19 (PCR MOLECULAR LAB Routine Suspected 2018 No maria ines Ordered: 02/01/2020 TESTING) Coronavirus Infection Health Maintenance Due Date Last Done Comments VARICELLA VACCINES (1 of 2 - 1985 2-dose childhood series) Depression Screening 1996 DTaP,Tdap,and Td Vaccines (1 - 11/06/2003 Tdap) PAP SMEAR 2005 INFLUENZA VACCINE (#1) 2020 PNEUMOCOCCAL 0-64 YEARS COMBINED Aged Out No longer eligible based on SERIES patient's age to complete this topic documented as of this encounter Results Not on filedocumented in this encounter Visit Diagnoses Diagnosis Suspected 2018 Novel Coronavirus Infecti on - Primary documented in this encounter Additional Health Concerns Infection Onset Date Last Indicated Resolved Time COVID-19 Rule Out 02/01/2020 02/01/2020 documented as of this encounter
--- OUTSIDE RECORDS SUMMARY | 2020-02-15 22:09 | XMS REPORT | Continuity of Care Document ---
:[address] [facility] t Address [address] [place] [address] Care Team Providers Name Role Phone Vane MUELLER, T Attending Clinician Unavailable Lab, Fam Pob I Attending Clinician Unavailable Payers Payer Name Policy Type Policy Number Effective Date Expiration Date S ource Problems This patient has no known problems. Allergies, Adverse Reactions, Alerts Allergy Allergy Status Severity Reaction(s) Onset Inactive Treating Comm ents Source Name Type Date Date Clinician No Known DA Active U 2019- [facility]ie -[facility] [place] CODEINE DA Active U 2006- [facility] 3-14 [facility] [place] No Known DA Active U 2006- [facility] Contrast 3-14 [facility] [place] No Known DA Active U 2006- [facility] Food 3-14 [facility] [place] No Known DA Active U 2006- [facility] Other 3-14 [facility] [place] Medications This patient has no known medications. Procedures This patient has no known procedures. Encounters Start End Encounter Admission Attending Care Care Encounter Source Date/Time Date/Time Type Type Clinicians Facility Department ID 2020-02-04 2020-02-04 Letter ALYSA Cifuentes [id number] 00:00:00 00:00:00 (Out) Yesi CARSON [id number] [facility] [id number] 2020-02-01 2020-02-01 Laboratory Lab, [facility] [id number] 15:55:19 16:15:19 Only Fam P[facility] I [facility] [id number] [place] [id number] Professio [phone] [address]al [address] One Results Test Description Test Time Test Comments Results Result Comments Source DRUGS OF ABUSE SCREEN 2019-11-16 20:44:00 Test Item Value Reference Range Interpretation Comme nts UR COCAINE (test code = COCAU) NEGATIVE NEGATIVE DETECTION CUT OFF: 150 ng/mL UR CANNABINOIDS (test code = CANU) NEGATIVE NEGATIVE DETECTION CUT OFF: 50 ng/mL UR AMPHETAMINE (test code = AMPHU) NEGATIVE NEGATIVE DETECTION CUT OFF: 500 ng/mL UR BARBITURATE QUAL (test code = NEGATIVE NEGATIVE DETECTION CUT OFF: 200 ng/mL BARBQLU) UR BENZODIAZEPINE (test code = NEGATIVE NEGATIVE DETECTION CUT OFF: 150 ng/mL BENZU) UR OPIATES QUAL (test code = NEGATIVE NEGATIVE DETECTION CUT OFF: 100 ng/mL OPIAQLU) UR PHENCYCLIDINE (PCP) (test code = NEGATIVE NEGATIVE DETECTION CUT OFF: 25 ng/mL PHENCU) COMPREHENSIVE METABOLIC [id number] 16:55:00 Test Item Value Reference Range Interpretation Comments SODIUM (test code = NA) 140 mEq/L 135-145 N POTASSIUM (test code = K) 3.9 mEq/L 3.5-5.0 N CHLORIDE (test code = CL) 104 mEq/L 100-115 N CARBON DIOXIDE (test code = CO2) 29 mEq/L 22-31 N ANION GAP (test code = GAP) 10.50 10-20 N GLUCOSE (test code = GLU) 132 mg/dL 65-110 H BLOOD UREA NITROGEN (test code = 12 mg/dL 7-18 N BUN) GLOMERULAR FILTRATION RATE (test 57 ml/min >60 L code = GFR) CREATININE (test code = CREAT) 1.1 mg/dL 0.5-1.0 H TOTAL PROTEIN (test code = PROT) 7.2 gm/dL 6.3-8.2 N ALBUMIN (test code = ALB) 3.4 gm/dL 3.4-4.8 N CALCIUM (test code = CA) 9.1 mg/dL 8.4-10.2 N BILIRUBIN TOTAL (test code = BILT) 0.3 mg/dL 0.2-1.0 N SGOT/AST (test code = AST) 33 units/L 15-37 N SGPT/ALT (test code = ALT) 67 units/L 12-78 N ALKALINE PHOSPHATASE TOTAL (test 74 units/L 46-116 N code = ALKP) URIC [id number] 16:55:00 Test Item Value Reference Range Interpretation Comments URIC ACID (test code = URIC) 6.2 mg/dL 2.6-6.0 H LACTIC DEHYDROGENASE(LDH)2019-11-16 16:55:00 Test Item Value Reference Range Interpretation Comments LACTIC DEHYDROGENASE(LDH) (test 160 units/L 81-234 N code = LDH) UA RFLX MICR CULT IF [id number] 16:41:00 Test Item Value Reference Range Interpretation Comments UA COLOR (test code = COLU) YELLOW YELLOW UA APPEARANCE (test code = Slightly-Cloudy CLEAR APPU) UA GLUCOSE DIPSTICK (test NEGATIVE NEG code = DGLUU) UA BILIRUBIN DIPSTICK (test NEGATIVE NEG code = BILU) UA KETONE DIPSTICK (test code NEGATIVE NEG = KETU) UA SPECIFIC GRAVITY (test 1.017 1.001-1.035 N code = SGU) UA BLOOD DIPSTICK (test code NEG NEG = JAY JAY) UA PH DIPSTICK (test code = 7.0 5-9 JOCELYNN) UA PROTEIN DIPSTICK (test NEGATIVE NEG code = PROU) UA UROBILINIOGEN DIPSTICK 2.0 mg/dL NEG (test code = URO) UA NITRITE DIPSTICK (test NEG NEG code = CANDIDO) UA LEUKOCYTE ESTERASE NEG NEG DIPSTICK (test code = LEUU) UA WBC (test code = WBCU) 3-5 #/hpf NONE SEEN A UA RBC (test code = RBCU) 0-2 #/hpf NONE SEEN UA EPITHELIAL CELLS (test RARE #/HPF RARE-FEW code = EPIU) UA MUCUS (test code = MUCU) RARE NONE SEEN Indication for culture: Suprapubic PainCBC W/AUTO [id number] 16:35:00 Test Item Value Reference Range Interpretation Comments WHITE BLOOD CELL (test code = WBC) 8.7 K/mm3 6.6-12.1 N RED BLOOD CELL (test code = RBC) 4.13 M/mm3 3.45-5.01 N HEMOGLOBIN (test code = HGB) 12.0 g/dL 10.7-13.9 N HEMATOCRIT (test code = HCT) 37.7 % 32.1-42.1 N MEAN CELL VOLUME (test code = MCV) 91 fL 84.1-94.8 N MEAN CELL HGB (test code = MCH) 29.1 pg 27-35 N MEAN CELL HGB CONCETRATION (test 31.8 gm/dL 32.2-34.1 L code = MCHC) RED CELL DISTRIBUTION WIDTH (test 12.2 % 12.4-16.5 L code = RDW) PLATELET COUNT (test code = PLT) 340 K/mm3 133-385 N MEAN PLATELET VOLUME (test code = 9.6 fl 9.1-12.7 N MPV) NEUTROPHIL % (test code = NT%) 72.3 % 56.5-79.4 N LYMPHOCYTE % (test code = LY%) 21.1 % 14.3-34.3 N MONOCYTE % (test code = MO%) 4.0 % 5.1-10.4 L EOSINOPHIL % (test code = EO%) 1.6 % 0.1-3.0 N BASOPHIL % (test code = BA%) 0.2 % 0.1-1.0 N NEUTROPHIL # (test code = NT#) 6.3 K/mm3 LYMPHOCYTE # (test code = LY#) 1.8 K/mm3 MONOCYTE # (test code = MO#) 0.4 K/mm3 EOSINOPHIL # (test code = EO#) 0.14 K/mm3 BASOPHIL # (test code = BA#) 0.0 K/mm3 RBC MORPHOLOGY REQUIRED (test code NORMAL NORMAL = RBCM) PLATELET MORPHOLOGY REQUIRED (test NORMAL NORMAL code = PLTMR) Coronavirus 2019 nCoV [id number] 11:09:00 Test Item Value Reference Range Interpretation Comments Coronavirus 2019 nCoV Negative Negative RESUL TS CALLED TO Bedside (test code = Adesuyi ,AREAD BACK & [id number]) CONFIRMED? yes BY [email or web address].[email or web address] 02/26 1109 This result fountain s not rule out co-inf ections with otherpatho gens. * False negative results may occur if a specimen isimproperly co llected, transported or handled. False negativer esults may also occur if amplification i nhibitors arepresent in t he specimen or if inadequate leve ls of virusesare pres ent in the specimen. * As with any molecular t est, if the virus mutat es in thetarget regio n, COVID-19 may no t be detected or may bedetected less predictably.ECHO T PERFORMED UNDER AN EMERGENCY USE AUTHORIZATION F [facility] COMPREHENSIVE METABOLIC [id number] 07:48:00 Test Item Value Reference Range Interpretation Comments SODIUM (test code = NA) 141 mEq/L 135-145 N POTASSIUM (test code = K) 4.4 mEq/L 3.5-5.0 N CHLORIDE (test code = CL) 105 mEq/L 100-115 N CARBON DIOXIDE (test code = CO2) 30 mEq/L 22-31 N ANION GAP (test code = GAP) 10.90 10-20 N GLUCOSE (test code = GLU) 95 mg/dL 65-110 N BLOOD UREA NITROGEN (test code = 18 mg/dL 7-18 N BUN) GLOMERULAR FILTRATION RATE (test 63 ml/min >60 N code = GFR) CREATININE (test code = CREAT) 1.0 mg/dL 0.5-1.0 N TOTAL PROTEIN (test code = PROT) 5.4 gm/dL 6.3-8.2 L ALBUMIN (test code = ALB) 2.5 gm/dL 3.4-4.8 L CALCIUM (test code = CA) 8.5 mg/dL 8.4-10.2 N BILIRUBIN TOTAL (test code = BILT) 0.2 mg/dL 0.2-1.0 N SGOT/AST (test code = AST) 19 units/L 15-37 N SGPT/ALT (test code = ALT) 21 units/L 12-78 N ALKALINE PHOSPHATASE TOTAL (test 81 units/L 46-116 N code = ALKP) [id number] 07:48:00 Test Item Value Reference Range Interpretation Comments MAGNESIUM (test code = MAG) 2.7 mg/dL 1.8-2.4 H CBC W/AUTO [id number] 07:08:00 Test Item Value Reference Range Interpretation Comments WHITE BLOOD CELL (test code = WBC) 8.3 K/mm3 6.6-12.1 N RED BLOOD CELL (test code = RBC) 3.37 M/mm3 3.45-5.01 L HEMOGLOBIN (test code = HGB) 10.1 g/dL 10.7-13.9 L HEMATOCRIT (test code = HCT) 31.8 % 32.1-42.1 L MEAN CELL VOLUME (test code = MCV) 94 fL 84.1-94.8 N MEAN CELL HGB (test code = MCH) 30.0 pg 27-35 N MEAN CELL HGB CONCETRATION (test 31.8 gm/dL 32.2-34.1 L code = MCHC) RED CELL DISTRIBUTION WIDTH (test 13.1 % 12.4-16.5 N code = RDW) PLATELET COUNT (test code = PLT) 334 K/mm3 133-385 N MEAN PLATELET VOLUME (test code = 10.1 fl 9.1-12.7 N MPV) NEUTROPHIL % (test code = NT%) 53.7 % 56.5-79.4 L LYMPHOCYTE % (test code = LY%) 30.0 % 14.3-34.3 N MONOCYTE % (test code = MO%) 9.4 % 5.1-10.4 N EOSINOPHIL % (test code = EO%) 5.8 % 0.1-3.0 H BASOPHIL % (test code = BA%) 0.6 % 0.1-1.0 N NEUTROPHIL # (test code = NT#) 4.5 K/mm3 LYMPHOCYTE # (test code = LY#) 2.5 K/mm3 MONOCYTE # (test code = MO#) 0.8 K/mm3 EOSINOPHIL # (test code = EO#) 0.48 K/mm3 BASOPHIL # (test code = BA#) 0.1 K/mm3 RBC MORPHOLOGY REQUIRED (test code NORMAL NORMAL = RBCM) PLATELET MORPHOLOGY REQUIRED (test NORMAL NORMAL code = PLTMR) B-TYPE NATRIURETIC [id number] 00:38:00 Test Item Value Reference Range Interpretation Comments B-TYPE NATRIURETIC PEPTIDE (test 542.13 pg/mL 0-100 H code = BNP) Comments to Public Health Assistant: Clean CatchSpecimen Comment: Clean Catch- CT HEAD/BRAIN W/O [id number] 00:31:00 Patient Name: OSBALDO MCCANN Unit No: [id number] EXAMS: CPT CODE: [id number] CT HEAD/BRAIN W/O CONT 41833 CT HEAD WITHOUT CONTRAST DATED 10/16/2019. INDICATION: headache. Hypertension. COMPARISON: None. A CT of the head was performed using thin slice noncontrast axial images with subsequent sagittal and coronal reconstruction. CT imaging performed at this location utilizes radiation dose optimization techniques which include one or more of the followin) A utomated exposure control; 2) Adjustment of mA and/or kV; 3) Use of iterative reconstructive technique. CT radiation dose DLP (mGy-cm): 1012. FINDINGS: Examination of the intracranial structures reveals no acute abnormal areas of increased or decreased density. Rod-white differentiation appears preserved. The ventricular system is normal in size and configuration without midline shift.No intra or extra-axial masses or fluid collections are identified. There is no CT evidence of acute intracranial hemorrhage. No acute CT abnormalities of the calvarium are detected. The included portions of the paranasal sinuses and mastoid air cells appear clear of acute disease. IMPRESSION: 1. No acute intracranial abnormalities are detected. There is no CT evidence of acute intracranial ischemia, acute intracranial hemorrhage or intracranial mass. SL: 131 at 0031 Reported and signed by: Jaiden Durham MD [facility] NAME: OSBALDO MCCANN Radiology Department PHYS: Gian Kang [address] : 1985 AGE: 33 SEX: F [place], [place] [address] LOC: DAVID PHONE #: [phone] EXAM DATE: STATUS: AMADOU ER FAX #: [phone] RAD NO: Page 1 Signed Report 1 Patient Name: OSBALDO MCCANN Unit No: [id number] EXAMS: CPT CODE: [id number] CT HEAD/BRAIN W/O CONT 68508 <Continued> CC: Cecilio Hoffman Technologist: ROB RAO, CT, RT CTDI: 60.16 DLP: 1012.10 Trnscrbd D/ (0031) Bhavana [facility] NAME: OSBALDO MCCANN Radiology Department PHYS: Gian Kang [address] : 1985 AGE: 33 SEX: F [place] [address] LOC: Laurence.ERS PHONE #: [phone] EXAM DATE: 10/15/2019 STATUS: REG ER FAX #: [phone] RAD NO: Page 2 Signed Report 1 Patient Name: OSBALDO MCCANN Unit No: [id number] EXAMS: CPT CODE: [id number] CT HEAD/BRAIN W/O CONT 16434 <Continued> Orig Print D/T: S: 10/16/2019(0034) [facility] NAME: SIOBHANOSBALDO Radiology Department PHYS: Gian Kang [address] : 1985 AGE: 33 SEX: F [place] [address] LOC: Laurence.ERS PHONE #: [phone] EXAM DATE: 10/15/2019 STATUS: REG ER FAX #: [phone] RAD NO: Page 3 Signed Report 1UR PROTEIN/CREATININE [id number] 00:23:00 Test Item Value Reference Range Interpretation Comments UR PROTEIN RANDOM (test code = 14.0 mg/dL PROTU) UR CREATININE RANDOM (test 74.0 mg/dL code = CREATU) PROTEIN/CREATININE RATIO (test 180.0 mg/gcrea <200 code = P/CRATIO) - XR CHEST 2 [id number] 00:16:00 Patient Name: OSBALDO MCCANN Unit No: [id number] EXAMS: CPT CODE: [id number] XR CHEST 2 V 30456 EXAM: CR, XR chest 2 views: 10/15/2019, 2354 hours HISTORY: CHEST PAIN TECHNIQU E: Frontal and lateral chest radiographs are obtained. COMPARISON: None available. FINDINGS: Trachea is in midline. Heart is normal in size. Mild interstitial opacities in the right infrahilar lung.. No airspace consolidation, pneumothorax or pleural effusion is seen. Osseous structures are unremarkable. IMPRESSION: Mild interstitial opacities in the right infrahilar lung, probably vascular crowding or less likely atelectasis or interstitial infiltrates.SL:[JSYED-H] at 0016 Reported and signed by: Garrett Cabezas M.D. CC: Cecilio Hoffman Technologist: RT Jarocho Trnscrbd D/ (0016) [id number] Orig Print D/T: S: 10/16/2019 (0019) [facility] NAME: OSBALDO MCCANN RadiologyDepartment PHYS: Mariama Subramanian BrentGian [address]DOB: 1985 AGE: 33 SEX: F [place], [place] [address] LOC:DAVID PHONE #: [phone] EXAM DATE: 10/15/2019 STATUS: REG ER FAX #: [phone] RAD NO: Page 1 Signed ReportDRUGS OF ABUSE [id number] 00:05:00 Test Item Value Reference Range Interpretation Comments UR COCAINE (test code = NEGATIVE NEGATIVE DETE CTION CUT OFF: COCAU) 150 ng/mL UR CANNABINOIDS (test NEGATIVE NEGATIVE DETECT ION CUT OFF: code = CANU) 50 ng/mL UR AMPHETAMINE (test code NEGATIVE NEGATIVE DE TECTION CUT OFF: = AMPHU) 500 ng/mL UR BARBITURATE QUAL (test NEGATIVE NEGATIVE DE TECTION CUT OFF: code = BARBQLU) 200 ng/mL UR BENZODIAZEPINE (test NEGATIVE NEGATIVE DETE CTION CUT OFF: code = BENZU) 150 ng/mL UR OPIATES QUAL (test POSITIVE NEGATIVE A RESULT S CALLED TO code = OPIAQLU) ECHO .READ BACK & CONFIRME D? Y.BY JEY 10/15/19 9371. DETECTION CUT O FF: 100 ng/mLPrevio usly reported result : POSITIVE Edited by: JEY on 10/16/19:0005OP IAQLU prev. reported as:POSITIVE H . RESULTS CALLED TO .. READ BACK & CONFIRMED? Y. [facility] 4431. UR PHENCYCLIDINE (PCP) NEGATIVE NEGATIVE DETEC TION CUT OFF: (test code = PHENCU) 25 ng/m L Comments to Public Health Assistant: Clean CatchSpecimen Comment: Clean CatchDRUGS OF ABUSE [id number] 00:04:00 Test Item Value Reference Range Interpretation Comments UR COCAINE (test code = NEGATIVE NEGATIVE DETE CTION CUT OFF: COCAU) 150 ng/mL UR CANNABINOIDS (test NEGATIVE NEGATIVE DETECT ION CUT OFF: code = CANU) 50 ng/mL UR AMPHETAMINE (test code NEGATIVE NEGATIVE DE TECTION CUT OFF: = AMPHU) 500 ng/mL UR BARBITURATE QUAL (test NEGATIVE NEGATIVE DE TECTION CUT OFF: code = BARBQLU) 200 ng/mL UR BENZODIAZEPINE (test NEGATIVE NEGATIVE DETE CTION CUT OFF: code = BENZU) 150 ng/mL UR OPIATES QUAL (test POSITIVE NEGATIVE A RESULT S CALLED TO code = OPIAQLU) .READ BACK & CONFIRMED? Y.[facility] 6038. DETECTION CUT OFF: 100 ng/mL UR PHENCYCLIDINE (PCP) NEGATIVE NEGATIVE DETEC TION CUT OFF: (test code = PHENCU) 25 ng/m L Comments to Public Health Assistant: Clean CatchSpecimen Comment: Clean CatchCOMPREHENSIVE METABOLIC [id number] 23:58:00 Test Item Value Reference Range Interpretation Comments SODIUM (test code = NA) 141 mEq/L 135-145 N POTASSIUM (test code = K) 3.9 mEq/L 3.5-5.0 N CHLORIDE (test code = CL) 105 mEq/L 100-115 N CARBON DIOXIDE (test code = CO2) 29 mEq/L 22-31 N ANION GAP (test code = GAP) 10.80 10-20 N GLUCOSE (test code = GLU) 95 mg/dL 65-110 N BLOOD UREA NITROGEN (test code = 17 mg/dL 7-18 N BUN) GLOMERULAR FILTRATION RATE (test 57 ml/min >60 L code = GFR) CREATININE (test code = CREAT) 1.1 mg/dL 0.5-1.0 H TOTAL PROTEIN (test code = PROT) 6.7 gm/dL 6.3-8.2 N ALBUMIN (test code = ALB) 2.9 gm/dL 3.4-4.8 L CALCIUM (test code = CA) 8.9 mg/dL 8.4-10.2 N BILIRUBIN TOTAL (test code = BILT) 0.2 mg/dL 0.2-1.0 N SGOT/AST (test code = AST) 20 units/L 15-37 N SGPT/ALT (test code = ALT) 24 units/L 12-78 N ALKALINE PHOSPHATASE TOTAL (test 96 units/L 46-116 N code = ALKP) Comments to Public Health Assistant: Clean CatchSpecimen Comment: Clean CatchCREATINE KINASE (CK)2019-10-15 23:58:00 Test Item Value Reference Range Interpretation Comments CREATINE KINASE (CK) (test code = 81 Units/L 26-192 N CK) Comments to Public Health Assistant: Clean CatchSpecimen Comment: Clean CatchLIPASE 2019-10-15 23:58:00 Test Item Value Reference Range Interpretation Comments LIPASE (test code = LIP) 48 units/L 73-393 L Comments to Public Health Assistant: Clean CatchSpecimen Comment: Clean CatchMAGNESIUM 2019-10-15 23:58:00 Test Item Value Reference Range Interpretation Comments MAGNESIUM (test code = MAG) 1.7 mg/dL 1.8-2.4 L Comments to Public Health Assistant: Clean CatchSpecimen Comment: Clean CatchTHYROID STIMULATING [id number] 23:58:00 Test Item Value Reference Range Interpretation Comments THYROID STIMULATING 0.77 0.36-3.74 N Test Per formed in HORMONE (test code = MicroIn ternational Units/mL TSH) Comments to Public Health Assistant: Clean CatchSpecimen Comment: Clean CatchTROPONIN-I 2019-10-15 23:58:00 Test Item Value Reference Range Interpretation Comments TROPONIN-I (test code = TROPI) 0.043 ng/mL <0.056 N Comments to Public Health Assistant: Clean CatchSpecimen Comment: Clean CatchPROTHROMBIN [id number] 23:41:00 Test Item Value Reference Range Interpretation Comments PROTHROMBIN TIME PATIENT (test code 10.8 secs 10.4-12.4 N = PTP) Comments to Public Health Assistant: Clean CatchSpecimen Comment: Clean CatchIS PATIENT ON ANTICOAGULANTS ? NINTERNATIONAL NORMAL [id number] 23:41:00 Test Item Value Reference Range Interpretation Comments INTERNATIONAL NORMAL 1.00 The INR is to be used RATIO (test code = INR) only for monitoring oral anticoagulantth erapy. INDICATION INR VALUE 1. Prophylaxis inc luding high risk solorzano rgery 2.0 - 2.52. Deep venous thr ombosis. Pulmonary em bolism. Atrial fibrilla tion or bioprostheti c heart valves 2.0 - 3.03. Mechanical hear t valves or recurren t systemic emboli sm. 3.0 - 3.5 Comments to Public Health Assistant: Clean CatchSpecimen Comment: Clean CatchIS PATIENT ON ANTICOAGULANTS ? NTHROMBOPLASTIN TIME [id number] 23:41:00 Test Item Value Reference Range Interpretation Comments THROMBOPLASTIN TIME PARTIAL (test 30.1 secs 22-38 N code = PTT) Comments to Public Health Assistant: Clean CatchSpecimen Comment: Clean CatchIS PATIENT ON ANTICOAGULANTS ? ND-DIMER [id number] 23:41:00 Test Item Value Reference Range Interpretation Comments D-DIMER QUANT 544 ng/mLDDU <255 H (test code = Refere nce DDIMER) Range in : &lt ;570 ng/ml A positive test d oes not provide a defin itive diagnosis ofDVT and indicates the n eed for follow up clini jono studies. The pr edictive value of a nega tive test is 98% for rulingout DVT. Comments to Public Health Assistant: Clean CatchSpecimen Comment: Clean CatchIS PATIENT ON ANTICOAGULANTS ? NUA RFLX MICR CULT IF [id number] 23:36:00 Test Item Value Reference Range Interpretation Comments UA COLOR (test code = COLU) YELLOW YELLOW UA APPEARANCE (test code = CLEAR CLEAR APPU) UA GLUCOSE DIPSTICK (test code NEGATIVE NEG = DGLUU) UA BILIRUBIN DIPSTICK (test NEGATIVE NEG code = BILU) UA KETONE DIPSTICK (test code NEGATIVE NEG = KETU) UA SPECIFIC GRAVITY (test code 1.013 1.001-1.035 N = SGU) UA BLOOD DIPSTICK (test code = 2+ NEG A JAY JAY) UA PH DIPSTICK (test code = 6.0 5-9 JOCELYNN) UA PROTEIN DIPSTICK (test code NEGATIVE NEG = PROU) UA UROBILINIOGEN DIPSTICK NEGATIVE mg/dL NEG (test code = URO) UA NITRITE DIPSTICK (test code NEG NEG = CANDIDO) UA LEUKOCYTE ESTERASE DIPSTICK NEG NEG (test code = LEUU) UA WBC (test code = WBCU) 0-2 #/hpf NONE SEEN UA RBC (test code = RBCU) 0-2 #/hpf NONE SEEN UA EPITHELIAL CELLS (test code RARE #/HPF RARE-FEW = EPIU) UA BACTERIA (test code = BACU) RARE /HPF RARE-FEW UA MUCUS (test code = MUCU) RARE NONE SEEN Comments to Public Health Assistant: Clean CatchSpecimen Comment: Clean CatchIndication for culture: Dysuria/FrequencyCBC W/AUTO [id number] 23:29:00 Test Item Value Reference Range Interpretation Comments WHITE BLOOD CELL (test code = WBC) 9.7 K/mm3 6.6-12.1 N RED BLOOD CELL (test code = RBC) 3.64 M/mm3 3.45-5.01 N HEMOGLOBIN (test code = HGB) 10.9 g/dL 10.7-13.9 N HEMATOCRIT (test code = HCT) 34.3 % 32.1-42.1 N MEAN CELL VOLUME (test code = MCV) 94 fL 84.1-94.8 N MEAN CELL HGB (test code = MCH) 29.9 pg 27-35 N MEAN CELL HGB CONCETRATION (test 31.8 gm/dL 32.2-34.1 L code = MCHC) RED CELL DISTRIBUTION WIDTH (test 12.9 % 12.4-16.5 N code = RDW) PLATELET COUNT (test code = PLT) 361 K/mm3 133-385 N MEAN PLATELET VOLUME (test code = 9.6 fl 9.1-12.7 N MPV) NEUTROPHIL % (test code = NT%) 61.4 % 56.5-79.4 N LYMPHOCYTE % (test code = LY%) 25.5 % 14.3-34.3 N MONOCYTE % (test code = MO%) 7.0 % 5.1-10.4 N EOSINOPHIL % (test code = EO%) 5.0 % 0.1-3.0 H BASOPHIL % (test code = BA%) 0.6 % 0.1-1.0 N NEUTROPHIL # (test code = NT#) 6.0 K/mm3 LYMPHOCYTE # (test code = LY#) 2.5 K/mm3 MONOCYTE # (test code = MO#) 0.7 K/mm3 EOSINOPHIL # (test code = EO#) 0.49 K/mm3 BASOPHIL # (test code = BA#) 0.1 K/mm3 RBC MORPHOLOGY REQUIRED (test code NORMAL NORMAL = RBCM) PLATELET MORPHOLOGY REQUIRED (test NORMAL NORMAL code = PLTMR) Comments to Public Health Assistant: Clean CatchSpecimen Comment: Clean CatchFALLOPIAN TUBE,[id number] 13:52:00 RUN DATE: 10/08/19 [facility] PAGE 1 RUN TIME: 1734 Specimen Inquiry RUN USER: INTERFACE PATIENT: OSBALDO MCCANN LOC: DonovanSANCHEZ U #: [id number] AGE/SX: 33/F ROOM: 2053 RE10/06/19REG DR: Cecilio Hoffman MD : 83 BED: A DIS: STATUS: ADM IN TLOC: SPEC #: [id number] RECD: 10/07/19-0 STATUS: BRENDA HERNANDEZ #: [id number] GABRIELLA: 10/07/19- SUBM DR: Cecilio Hoffman MD ENTERED: 10/07/19-1011 SP TYPE: FALLBX OTHR DR: ORDERED: LEVEL IV CODES: [id number] - FALLOPIAN TUBE PROCEDURES: LEVEL IV (Incomplete) TISSUES: FALLOPIAN TUBE, NOS - RIGHT AND LEFT FALLOPIAN TUBE CLINICAL HISTORY Not provided (wpd) FINAL DIAGNOSIS Right fallopian tube, tubal ligation: - fallopian tube withcomplete surgical transection, no pathologic alteration Left fallopian tube, tubal ligation: - fallopian tube with complete surgical transection, no pathologic alteration CPT code(s): 86304 x2 pkg/kr GROSS DESCRIPTION ANATOMIC SOURCE OF TISSUE (per Requisition): Rightand left fallopian tubes (received in 2 containers) Each specimen is labeled with the patient's name and medical record number. Specimen #1 is designated "right fallopian tube" and consistsof a 5.5 cm in length and 0.6 cm in diameter fimbriated fallopian tube. The serosa is pink-purpleand hyperemic. The lumen is pinpoint. [employer] Worker sections are submitted as A1. Specimen #2 is designated "left fallopian tube" and consists of a 4.5 cm in length and 0.6 cm in diameter fimbriated fallopian tube. The serosa is pink-purple and hyperemic. The lumen is pinpoint. Transit Survey Worker sections are submitted as B1. jovita/wpd 10/07/19 CONTINUED ON NEXT PAGE RUN DATE: 10/08/19 [facility] PAGE 2 RUN TIME: 1734 Specimen Inquiry RUN USER: INTERFACE SPEC #: [id number] PATIENT: OSBALDO MCCANN #[id number] (Continued) MICROSCOPIC DESCRIPTION Specimen #1 - the fallopian tube architecture is intact. The lumen is not dilated. A completely transected segment of fallopian tube is present. Specimen #2 - the fallopian tube architecture is intact. The lumen is not dilated. A completely transected segment of fallopian tube is present. lai Signed Tiny Jurado 10/08/19 1352 END OF REPORT HGB [id number] 05:07:00 Test Item Value Reference Range Interpretation Comments HEMOGLOBIN (test code = HGB) 9.3 g/dL 10.7-13.9 L HEMATOCRIT (test code = HCT) 28.3 % 32.1-42.1 L Coronavirus 2019 nCoV [id number] 16:02:00 Test Item Value Reference Range Interpretation Comments Coronavirus 2019 nCoV Negative Negative RESUL TS CALLED TO Bedside (test code = BERENICE/A PUREAD BACK & [id number]) CONFIRMED? CHAI [email or web address] 10/06/19 1602 T his result does not rule out co-infections w ith otherpathogens. * False negative result s may occur if a spec imen isimproperly co llected, transported or handled. False negativer esults may also occur if amplification i nhibitors arepresent in t he specimen or if inadequate leve ls of virusesare pres ent in the specimen. * As with any molecular t est, if the virus mutat es in thetarget regio n, COVID-19 may no t be detected or may bedetected less predictably.ECHO T PERFORMED UNDER AN EMERGENCY USE AUTHORIZATION F [facility] AG HEPATITIS B [id number] 07:07:00 Test Item Value Reference Range Interpretation Comments AG HEPATITIS B SURFACE (test code NONREACTIVE NONREACTIVE = HBSAG) AB HEPATITIS C [id number] 07:07:00 Test Item Value Reference Range Interpretation Comments AB HEPATITIS C (test code = NONREACTIVE NONREACTIVE HCVAB) SIGNAL TO CUTOFF (test code = 0.13 <0.80 N CUTOFF) AB [id number] 07:07:00 Test Item Value Reference Range Interpretation Comments AB TREPONEMA (test code = TREPAB) NONREACTIVE NONREACTIVE AG HEPATITIS B [id number] 06:50:00 Test Item Value Reference Range Interpretation Comments AG HEPATITIS B SURFACE (test code NONREACTIVE NONREACTIVE = HBSAG) AB HEPATITIS C [id number] 06:50:00 Test Item Value Reference Range Interpretation Comments AB HEPATITIS C (test code = HCVAB) NONREACTIVE SIGNAL TO CUTOFF (test code = CUTOFF) <0.80 AB [id number] 06:50:00 Test Item Value Reference Range Interpretation Comments AB TREPONEMA (test code = TREPAB) NONREACTIVE NONREACTIVE CBC W/AUTO [id number] 02:32:00 Test Item Value Reference Range Interpretation Comments WHITE BLOOD CELL (test code = WBC) 11.7 K/mm3 6.6-12.1 N RED BLOOD CELL (test code = RBC) 3.55 M/mm3 3.45-5.01 N HEMOGLOBIN (test code = HGB) 10.6 g/dL 10.7-13.9 L HEMATOCRIT (test code = HCT) 32.3 % 32.1-42.1 N MEAN CELL VOLUME (test code = MCV) 91 fL 84.1-94.8 N MEAN CELL HGB (test code = MCH) 29.9 pg 27-35 N MEAN CELL HGB CONCETRATION (test 32.8 gm/dL 32.2-34.1 N code = MCHC) RED CELL DISTRIBUTION WIDTH (test 13.2 % 12.4-16.5 N code = RDW) PLATELET COUNT (test code = PLT) 228 K/mm3 133-385 N MEAN PLATELET VOLUME (test code = 10.7 fl 9.1-12.7 N MPV) NEUTROPHIL % (test code = NT%) 66.8 % 56.5-79.4 N LYMPHOCYTE % (test code = LY%) 20.9 % 14.3-34.3 N MONOCYTE % (test code = MO%) 8.9 % 5.1-10.4 N EOSINOPHIL % (test code = EO%) 2.3 % 0.1-3.0 N BASOPHIL % (test code = BA%) 0.3 % 0.1-1.0 N NEUTROPHIL # (test code = NT#) 7.8 K/mm3 LYMPHOCYTE # (test code = LY#) 2.5 K/mm3 MONOCYTE # (test code = MO#) 1.0 K/mm3 EOSINOPHIL # (test code = EO#) 0.27 K/mm3 BASOPHIL # (test code = BA#) 0.0 K/mm3 RBC MORPHOLOGY REQUIRED (test code NORMAL NORMAL = RBCM) PLATELET MORPHOLOGY REQUIRED (test NORMAL NORMAL code = PLTMR) URINALYSIS [id number] 23:53:00 Test Item Value Reference Range Interpretation Comments UA COLOR (test code = COLU) DANIELA YELLOW A UA APPEARANCE (test code = Slightly-Cloudy CLEAR APPU) UA GLUCOSE DIPSTICK (test NEGATIVE NEG code = DGLUU) UA BILIRUBIN DIPSTICK (test 1+ NEG A code = BILU) UA KETONE DIPSTICK (test code NEGATIVE NEG = KETU) UA SPECIFIC GRAVITY (test 1.035 1.001-1.035 N code = SGU) UA BLOOD DIPSTICK (test code NEG NEG = JAY JAY) UA PH DIPSTICK (test code = 5.0 5-9 JOCELYNN) UA PROTEIN DIPSTICK (test 1+ NEG A code = PROU) UA UROBILINIOGEN DIPSTICK 4.0 mg/dL NEG A (test code = URO) UA NITRITE DIPSTICK (test NEG NEG code = CANDIDO) UA LEUKOCYTE ESTERASE NEG NEG DIPSTICK (test code = LEUU) UA WBC (test code = WBCU) 0-2 #/hpf NONE SEEN UA RBC (test code = RBCU) 0-2 #/hpf NONE SEEN UA EPITHELIAL CELLS (test RARE #/HPF RARE-FEW code = EPIU) UA BACTERIA (test code = FEW /HPF RARE-FEW BACU) UA MUCUS (test code = MUCU) 4+ NONE SEEN Comments to Public Health Assistant: CORETTA RICHARDSON SAMPLE: CLEAN [id number] 14:53:00 Test Item Value Reference Range Interpretation Comments CREATININE (test code = CREAT) 0.9 mg/dL 0.5-1.0 N [id number] 14:53:00 Test Item Value Reference Range Interpretation Comments SGOT/AST (test code = AST) 46 units/L 15-37 H [id number] 14:53:00 Test Item Value Reference Range Interpretation Comments SGPT/ALT (test code = ALT) 39 units/L 12-78 N URINALYSIS [id number] 14:28:00 Test Item Value Reference Range Interpretation Comments UA COLOR (test code = COLU) DANIELA YELLOW A UA APPEARANCE (test code = APPU) CLEAR CLEAR UA GLUCOSE DIPSTICK (test code = NEGATIVE NEG DGLUU) UA BILIRUBIN DIPSTICK (test code = NEGATIVE NEG BILU) UA KETONE DIPSTICK (test code = NEGATIVE NEG KETU) UA SPECIFIC GRAVITY (test code = 1.017 1.001-1.035 N SGU) UA BLOOD DIPSTICK (test code = JAY JAY) NEG NEG UA PH DIPSTICK (test code = JOCELYNN) 7.0 5-9 UA PROTEIN DIPSTICK (test code = NEGATIVE NEG PROU) UA UROBILINIOGEN DIPSTICK (test 4.0 mg/dL NEG A code = URO) UA NITRITE DIPSTICK (test code = NEG NEG CANDIDO) UA LEUKOCYTE ESTERASE DIPSTICK NEG NEG (test code = LEUU) UA WBC (test code = WBCU) 0-2 #/hpf NONE SEEN UA RBC (test code = RBCU) 0-2 #/hpf NONE SEEN UA EPITHELIAL CELLS (test code = FEW #/HPF RARE-FEW EPIU) UA BACTERIA (test code = BACU) FEW /HPF RARE-FEW UA MUCUS (test code = MUCU) RARE NONE SEEN URINE SAMPLE: CLEAN CATCHComment [facility] W/AUTO [id number] 14:24:00 Test Item Value Reference Range Interpretation Comments WHITE BLOOD CELL (test code = WBC) 6.3 K/mm3 6.6-12.1 L RED BLOOD CELL (test code = RBC) 3.65 M/mm3 3.45-5.01 N HEMOGLOBIN (test code = HGB) 10.9 g/dL 10.7-13.9 N HEMATOCRIT (test code = HCT) 34.0 % 32.1-42.1 N MEAN CELL VOLUME (test code = MCV) 93 fL 84.1-94.8 N MEAN CELL HGB (test code = MCH) 29.9 pg 27-35 N MEAN CELL HGB CONCETRATION (test 32.1 gm/dL 32.2-34.1 L code = MCHC) RED CELL DISTRIBUTION WIDTH (test 12.9 % 12.4-16.5 N code = RDW) PLATELET COUNT (test code = PLT) 216 K/mm3 133-385 N MEAN PLATELET VOLUME (test code = 10.4 fl 9.1-12.7 N MPV) NEUTROPHIL % (test code = NT%) 65.8 % 56.5-79.4 N LYMPHOCYTE % (test code = LY%) 21.6 % 14.3-34.3 N MONOCYTE % (test code = MO%) 9.4 % 5.1-10.4 N EOSINOPHIL % (test code = EO%) 2.4 % 0.1-3.0 N BASOPHIL % (test code = BA%) 0.3 % 0.1-1.0 N NEUTROPHIL # (test code = NT#) 4.2 K/mm3 LYMPHOCYTE # (test code = LY#) 1.4 K/mm3 MONOCYTE # (test code = MO#) 0.6 K/mm3 EOSINOPHIL # (test code = EO#) 0.15 K/mm3 BASOPHIL # (test code = BA#) 0.0 K/mm3 RBC MORPHOLOGY REQUIRED (test code NORMAL NORMAL = RBCM) PLATELET MORPHOLOGY REQUIRED (test NORMAL NORMAL code = PLTMR) URINALYSIS W/O [id number] 16:36:00 Test Item Value Reference Range Interpretation Comments UA GLUCOSE DIPSTICK (test code = NEGATIVE NEGATIVE DGLUU) UA KETONE DIPSTICK (test code = TRACE NEGATIVE KETU) UA PROTEIN DIPSTICK (test code = NEGATIVE NEGATIVE PROU) IS NURSE PERFORMING TEST? SHAMEKA PROTEIN/CREATININE [id number] 16:36:00 Test Item Value Reference Range Interpretation Comments UR PROTEIN RANDOM (test code = 37.6 mg/dL PROTU) UR CREATININE RANDOM (test 290.4 mg/dL code = CREATU) PROTEIN/CREATININE RATIO (test 120.0 mg/gcrea <200 code = P/CRATIO) IS NURSE PERFORMING TEST? [id number] 16:16:00 Test Item Value Reference Range Interpretation Comments CREATININE (test code = CREAT) 0.7 mg/dL 0.5-1.0 N [id number] 16:16:00 Test Item Value Reference Range Interpretation Comments SGOT/AST (test code = AST) 15 units/L 15-37 N [id number] 16:16:00 Test Item Value Reference Range Interpretation Comments SGPT/ALT (test code = ALT) 16 units/L 12-78 N CBC W/AUTO [id number] 15:58:00 Test Item Value Reference Range Interpretation Comments WHITE BLOOD CELL (test code = WBC) 9.0 K/mm3 6.6-12.1 N RED BLOOD CELL (test code = RBC) 3.53 M/mm3 3.45-5.01 N HEMOGLOBIN (test code = HGB) 10.8 g/dL 10.7-13.9 N HEMATOCRIT (test code = HCT) 32.3 % 32.1-42.1 N MEAN CELL VOLUME (test code = MCV) 92 fL 84.1-94.8 N MEAN CELL HGB (test code = MCH) 30.6 pg 27-35 N MEAN CELL HGB CONCETRATION (test 33.4 gm/dL 32.2-34.1 N code = MCHC) RED CELL DISTRIBUTION WIDTH (test 12.9 % 12.4-16.5 N code = RDW) PLATELET COUNT (test code = PLT) 223 K/mm3 133-385 N MEAN PLATELET VOLUME (test code = 10.5 fl 9.1-12.7 N MPV) NEUTROPHIL % (test code = NT%) 79.7 % 56.5-79.4 H LYMPHOCYTE % (test code = LY%) 12.5 % 14.3-34.3 L MONOCYTE % (test code = MO%) 6.6 % 5.1-10.4 N EOSINOPHIL % (test code = EO%) 0.7 % 0.1-3.0 N BASOPHIL % (test code = BA%) 0.2 % 0.1-1.0 N NEUTROPHIL # (test code = NT#) 7.2 K/mm3 LYMPHOCYTE # (test code = LY#) 1.1 K/mm3 MONOCYTE # (test code = MO#) 0.6 K/mm3 EOSINOPHIL # (test code = EO#) 0.06 K/mm3 BASOPHIL # (test code = BA#) 0.0 K/mm3 RBC MORPHOLOGY REQUIRED (test code NORMAL NORMAL = RBCM) PLATELET MORPHOLOGY REQUIRED (test NORMAL NORMAL code = PLTMR) URINALYSIS W/O [id number] 15:43:00 Test Item Value Reference Range Interpretation Comments UA GLUCOSE DIPSTICK (test code = NEGATIVE NEGATIVE DGLUU) UA KETONE DIPSTICK (test code = TRACE NEGATIVE KETU) UA PROTEIN DIPSTICK (test code = NEGATIVE NEGATIVE PROU) IS NURSE PERFORMING TEST? SHAMEKA PROTEIN/CREATININE [id number] 15:43:00 Test Item Value Reference Range Interpretation Comments UR PROTEIN RANDOM (test code = mg/dL PROTU) UR CREATININE RANDOM (test code = mg/dL CREATU) PROTEIN/CREATININE RATIO (test code mg/gcrea <200 = P/CRATIO) IS NURSE PERFORMING TEST? SHAMEKA PROTEIN [id number] 13:08:00 Test Item Value Reference Range Interpretation Comments UR PROTEIN RANDOM 21.8 mg/dL (test code = PROTU) UR PROTEIN 24HR 305 mg/24HR 20-150 HH RESULTS CALL ED TO (test code = DONNA NUGENT AD BACK [id number]) & CONFIRMED? MAURICIO ClearyBY F.LAB.ELB1 08/07 1308.Units for 24 HR Urine Protein h ave changed: New U nits = MG/24HR UR VOLUME (test code 1400 ML = VOL) COMPREHENSIVE METABOLIC [id number] 15:51:00 Test Item Value Reference Range Interpretation Comments SODIUM (test code = NA) 139 mEq/L 135-145 N POTASSIUM (test code = K) 3.3 mEq/L 3.5-5.0 L CHLORIDE (test code = CL) 104 mEq/L 100-115 N CARBON DIOXIDE (test code = CO2) 25 mEq/L 22-31 N ANION GAP (test code = GAP) 13.20 10-20 N GLUCOSE (test code = GLU) 112 mg/dL 65-110 H BLOOD UREA NITROGEN (test code = 11 mg/dL 7-18 N BUN) GLOMERULAR FILTRATION RATE (test 114 ml/min >60 N code = GFR) CREATININE (test code = CREAT) 0.6 mg/dL 0.5-1.0 N TOTAL PROTEIN (test code = PROT) 6.1 gm/dL 6.3-8.2 L ALBUMIN (test code = ALB) 2.8 gm/dL 3.4-4.8 L CALCIUM (test code = CA) 8.6 mg/dL 8.4-10.2 N BILIRUBIN TOTAL (test code = BILT) 0.2 mg/dL 0.2-1.0 N SGOT/AST (test code = AST) 14 units/L 15-37 L SGPT/ALT (test code = ALT) 16 units/L 12-78 N ALKALINE PHOSPHATASE TOTAL (test 62 units/L 46-116 N code = ALKP) CBC W/AUTO [id number] 15:25:00 Test Item Value Reference Range Interpretation Comments WHITE BLOOD CELL (test code = WBC) 14.1 K/mm3 6.6-12.1 H RED BLOOD CELL (test code = RBC) 3.44 M/mm3 3.45-5.01 L HEMOGLOBIN (test code = HGB) 10.4 g/dL 10.7-13.9 L HEMATOCRIT (test code = HCT) 32.6 % 32.1-42.1 N MEAN CELL VOLUME (test code = MCV) 95 fL 84.1-94.8 H MEAN CELL HGB (test code = MCH) 30.2 pg 27-35 N MEAN CELL HGB CONCETRATION (test 31.9 gm/dL 32.2-34.1 L code = MCHC) RED CELL DISTRIBUTION WIDTH (test 12.7 % 12.4-16.5 N code = RDW) PLATELET COUNT (test code = PLT) 245 K/mm3 133-385 N MEAN PLATELET VOLUME (test code = 10.6 fl 9.1-12.7 N MPV) NEUTROPHIL % (test code = NT%) 75.2 % 56.5-79.4 N LYMPHOCYTE % (test code = LY%) 16.4 % 14.3-34.3 N MONOCYTE % (test code = MO%) 6.1 % 5.1-10.4 N EOSINOPHIL % (test code = EO%) 0.7 % 0.1-3.0 N BASOPHIL % (test code = BA%) 0.3 % 0.1-1.0 N NEUTROPHIL # (test code = NT#) 10.6 K/mm3 LYMPHOCYTE # (test code = LY#) 2.3 K/mm3 MONOCYTE # (test code = MO#) 0.9 K/mm3 EOSINOPHIL # (test code = EO#) 0.10 K/mm3 BASOPHIL # (test code = BA#) 0.0 K/mm3 RBC MORPHOLOGY REQUIRED (test code NORMAL NORMAL = RBCM) PLATELET MORPHOLOGY REQUIRED (test NORMAL NORMAL code = PLTMR) UR CREATININE CLEARANCE [id number] 16:27:00 Test Item Value Reference Range Interpretation Comments CREATININE CLEARANCE RESULT (test 180 ml/min 70-120 H code = CREATCLR) CREATININE (test code = CREAT) 0.6 mg/dL 0.5-1.0 N UR CREATININE RANDOM (test code = 120.2 mg/dL CREATU) UR VOLUME (test code = VOL) 1300 ML UR PROTEIN [id number] 16:27:00 Test Item Value Reference Range Interpretation Comments UR PROTEIN RANDOM 23.5 mg/dL (test code = PROTU) UR PROTEIN 24HR (test 306 mg/24HR 20-150 HH RESULT S CALLED TO code = [id number]) APRIL.READ BACK & CONFIRMED? YES. BY F.LAB.ELB1 12/26 1627.Units for 24 HR Urine Protein h ave changed: New U nits = MG/24HR AMNISURE (ROM) [id number] 15:13:00 Test Item Value Reference Range Interpretation Comments AMNISURE (ROM) TEST (test code = NON-RUPTURED NON-RUPTURE AMNI) : *Amnisure QC OK? YES- US FET BIO PH MS W/O [id number] 10:31:00 Patient Name: OSBALDO MCCANN Unit No: [id number] EXAMS: CPT CODE: [id number] US FET BIO PH MS W/O NST [address] [facility] [address] [place], [place] [address] OBSTETRICAL BIOPHYSICAL ULTRASOUND REPORT Pat. Name: OSBALDO MCCANN Pat. No: [id number] Study Date: 08/14/2019 9:40am , Age: 05 1985, 33 Pregnancies: 6, Para 1132 LMP: Unknown GA by 1st: 28w6d GA by US: 28w5d GA Selected: 28w6d (From First S) BETSY: 10/31/2019 Referring MD: Cecilio Hoffman Building Custodial Supervisor: Shante Lazo RDMS CPT4: USBPPWONST Hist/Ind: HTN SCAN 3 MEASUREMENTS AGE GROWTH EVALUATION Measurement GA Range Srce %for GA Ratios ----- ---- ------- BPD 7.2 cm 29w1d (18w2j-16d3i) Hadl BPD 57% FL/BPD 0.75 (0.71 - 0.87) HC 27.6 cm 29w6d (67d4m-25y9z) Hadl HC 71% FL/AC 0.21 (0.20 - 0.24) APD 8.2 cm APD HC/AC 1.10 (0.99 - 1.18) TAD 7.7 cm TAD CI 0.73 (0.70 - 0.86) A C 25.0 cm 29w1d (35l7m-97t1w) Hadl AC 56% FL 5.4 cm 28w0d (15j4q-79x8a) Hadl FL 33% HL 5.0 cm 29w2d (88c4b-78t6i) Gian HL 56% GA for sonogram 28w5d (68l4g-15n9s) Weight Estimate: based on (BPD,HC,AC,FL) Hadlock Weight: 1320 gm (0714-8889) Hadlo : 2lbs, 14oz Normal: 1287 gm [...] observed tone noted breathing movements observed [facility] NAME: OSBALDO MCCANN Radiology Department PHYS: Cecilio Cavanaugh MD [address] : 1985 AGE: 33 SEX: F [place] [address] LOC: Gary A PHONE #: [phone] EXAM DATE: 08/14/2019STATUS: ADM IN FAX #: [phone] RAD NO: Page 1 Signed Report (CONTINUED) Patient Name: OSBALDO MCCANN Unit No: [id number] EXAMS: CPT CODE: [id number] US FET BIO PH MS W/O NST 61567 <Continued> Placental location: Anterior Placental maturity : [...] t.JENNIFERG Orig Print D/T: S: 08/16/2019 (1155) [facility] NAME: OSBALDO MCCANN Radiology Department PHYS: Cecilio Cavanaugh MD [address] : 1985 AGE: 33 SEX: [place] [address] LOC: Gary A PHONE #: [phone] EXAM DATE: 08/14/2019 STATUS: ADM IN FAX #: [phone] RAD NO: Page 2 Signed Report Patient Name: OSBALDO MCCANN Unit No: [id number] EXAMS: CPT CODE: [id number] US FET BIO PH MS W/O NST 08919 <Continued> [facility] NAME: OSBALDO MCCANN RadiologyDepartment PHYS: Cecilio Cavanaugh MD [address]OB: 1985 AGE: 33 SEX: F [place] [id number] LOC:FReema6 A PHONE #: [phone] EXAM DATE: 08/14/2019 STATUS: ADM IN FAX #: [phone] RAD NO: Page 3 Signed Report- US FLW [id number] 10:31:00 Patient Name: OSBALDO MCCANN Unit No: [id number] EXAMS: CPT CODE: [id number] [place] [address] [facility] [address] [place], [place] [address] OBSTETRICAL BIOPHYSICAL ULTRASOUND REPORT Pat. Name: OSBALDO MCCANN Pat. No: [id number] Study Date: 08/14/2019 9:40am , Age: 05 1985, 33 Pregnancies: 6, Para 1132 LMP: Unknown GA by 1st: 28w6d GA by US: 28w5d GA Selected: 28w6d (From First S) BETSY: 10/31/2019 Referring MD: JO PAUL Building Custodial Supervisor: Shante Lazo RDMS CPT4: USPREGFU Admitting MD: CECILIO HOFFMAN Hist/Ind: HTN SCAN 3 MEASUREMENTS AGE GROWTH EVALUATION Measurement GA Range Srce %for GA Ratios ----- ------- BPD 7.2 cm 29w1d (43o9m-96l8e) Hadl BPD 57% FL/BPD 0.75 (0.71 - 0.87) HC 27.6 cm 29w6d (14r1x-88m0t) Hadl HC 71% FL/AC 0.21 (0.20 - 0.24) APD 8.2 cm APD HC/AC 1.10 (0.99 - 1.18) TAD 7.7 cm TAD CI 0.73 (0.70 - 0.86) AC 25.0 cm 29w1d (76a0i-42b1o) Hadl AC 56% FL 5.4 cm 28w0d (69v5e-66k3j) Hadl FL 33% HL 5.0 cm 29w2d (26w4d- 32w0d) Gian HL 56% GA for sonogram 28w5d (49t5f-50d4v) Weight Estimate: based on (BPD,HC,AC,FL) Hadlock Weight: 1320 gm (6341-1331) Hadlo : 2lbs, 14oz Normal: 1287 gm [...] and limb movements observed tone noted [facility] NAME: OSBALDO MCCANN Radiology Department PHYS: Cecilio Cavanaugh MD [address] : 1985 AGE: 33 SEX: F [place] [address] LOC: [place].3036 A PHONE #: [phone] EXAM DATE: 08/14/2019 STATUS: ADM IN FAX #: [phone] RAD NO: Page 1 Signed Report (CONTINUED) Patient Name: OSBALDO MCCANN Unit No: [id number] EXAMS: CPT CODE: [id number] [place] [address] <Continued> breathing movements observed Placental location: Anterior [...] Shante Lazo RDMS Probe: Trnscrbd D/ (1031) GarethNMG Orig Print D/T: S: 08/14/2019 (1031) [facility] NAME: OSBALDO MCCANN Radiology Department PHYS: Cecilio Cavanaugh MD [address] : 1985 AGE: 33 SEX: [id number] LOC: Donovan3036 A PHONE #: [phone] EXAM DATE: 08/14/2019 STATUS: ADM IN FAX #: [phone] RAD NO: Page 2 Signed Report Patient Name: OSBALDO MCCANN Unit No: [id number] EXAMS: CPT CODE: [id number] [place] [address] <Continued> [facility] NAME: OSBALDO MCCANN Radiology Department PHYS: Cecilio Cavanaugh MD [address] : 1985 AGE: 33 SEX: F [place], [place] [address] LOC: F.3036 A PHONE #: [phone] EXAM DATE: 08/14/2019 STATUS: ADM IN FAX #: [phone] RAD NO: Page 3 Signed ReportGLUCOSE 2HR 2019-08-14 09:45:00 Test Item Value Reference Range Interpretation Comments GLUCOSE 2HR (test code = GLU2) 127 mg/dL 70-140 N 3HR GTT GLU2 GLU2HR from 306:CF:[id number].GLUCOSE [id number] 09:42:00 Test Item Value Reference Range Interpretation Comments GLUCOSE 3HR (test code = GLU3) 116 mg/dL 65-110 H 3HR GTT GLU3 GLU3HR from 306:CF:[id number].GESTATION SCREEN [id number] 07:21:00 Test Item Value Reference Range Interpretation Comments GESTATION SCREEN GLUCOSE (test code 142 MG/DL <150 = GLU1S) GLU GEST SCRN 1 HR GLU GLU1S from 306:CF:[id number].GLUCOSE [id number] 05:26:00 Test Item Value Reference Range Interpretation Comments GLUCOSE FASTING (test code = GLUF) 93 mg/dL 65-110 N GLU GEST SCRN GLUFAST GLUFAST from 306:CF:[id number].CHEMISTRY 7 [id number] 15:00:00 Test Item Value Reference Range Interpretation Comments SODIUM (test code = NA) 136 mEq/L 135-145 N POTASSIUM (test code = K) 3.7 mEq/L 3.5-5.0 N CHLORIDE (test code = CL) 103 mEq/L 100-115 N CARBON DIOXIDE (test code = CO2) 25 mEq/L 22-31 N ANION GAP (test code = GAP) 11.80 10-20 N GLUCOSE (test code = GLU) 87 mg/dL 65-110 N BLOOD UREA NITROGEN (test code = 12 mg/dL 7-18 N BUN) GLOMERULAR FILTRATION RATE (test 114 ml/min >60 N code = GFR) CREATININE (test code = CREAT) 0.6 mg/dL 0.5-1.0 N CALCIUM (test code = CA) 8.5 mg/dL 8.4-10.2 N LIVER [id number] 15:00:00 Test Item Value Reference Range Interpretation Comments TOTAL PROTEIN (test code = PROT) 6.4 gm/dL 6.3-8.2 N ALBUMIN (test code = ALB) 2.7 gm/dL 3.4-4.8 L BILIRUBIN TOTAL (test code = BILT) 0.2 mg/dL 0.2-1.0 N BILIRUBIN DIRECT (test code = <0.1 mg/dL <0.2 N BILD) SGOT/AST (test code = AST) 12 units/L 15-37 L SGPT/ALT (test code = ALT) 12 units/L 12-78 N ALKALINE PHOSPHATASE TOTAL (test 62 units/L 46-116 N code = ALKP) CBC W/AUTO [id number] 14:35:00 Test Item Value Reference Range Interpretation Comments WHITE BLOOD CELL (test code = WBC) 10.8 K/mm3 6.6-12.1 N RED BLOOD CELL (test code = RBC) 3.49 M/mm3 3.45-5.01 N HEMOGLOBIN (test code = HGB) 10.6 g/dL 10.7-13.9 L HEMATOCRIT (test code = HCT) 32.7 % 32.1-42.1 N MEAN CELL VOLUME (test code = MCV) 94 fL 84.1-94.8 N MEAN CELL HGB (test code = MCH) 30.4 pg 27-35 N MEAN CELL HGB CONCETRATION (test 32.4 gm/dL 32.2-34.1 N code = MCHC) RED CELL DISTRIBUTION WIDTH (test 12.6 % 12.4-16.5 N code = RDW) PLATELET COUNT (test code = PLT) 260 K/mm3 133-385 N MEAN PLATELET VOLUME (test code = 10.4 fl 9.1-12.7 N MPV) NEUTROPHIL % (test code = NT%) 67.8 % 56.5-79.4 N LYMPHOCYTE % (test code = LY%) 19.6 % 14.3-34.3 N MONOCYTE % (test code = MO%) 8.3 % 5.1-10.4 N EOSINOPHIL % (test code = EO%) 3.2 % 0.1-3.0 H BASOPHIL % (test code = BA%) 0.4 % 0.1-1.0 N NEUTROPHIL # (test code = NT#) 7.3 K/mm3 LYMPHOCYTE # (test code = LY#) 2.1 K/mm3 MONOCYTE # (test code = MO#) 0.9 K/mm3 EOSINOPHIL # (test code = EO#) 0.34 K/mm3 BASOPHIL # (test code = BA#) 0.0 K/mm3 RBC MORPHOLOGY REQUIRED (test code NORMAL NORMAL = RBCM) PLATELET MORPHOLOGY REQUIRED (test NORMAL NORMAL code = PLTMR) UR PROTEIN [id number] 13:01:00 Test Item Value Reference Range Interpretation Comments UR PROTEIN RANDOM 14.5 mg/dL (test code = PROTU) UR PROTEIN 24HR (test 189 mg/24HR 20-150 H Units for 24 HR Urine code = [id number]) Protein have changed: New Units = MG /24HR UR VOLUME (test code 1300 ML = VOL) - US PREG AFTER [id number] 09:35:00 Patient Name: OSBALDO MCCANN Unit No: [id number] EXAMS: CPT CODE: [id number] US PREG AFTER TRI [id number] [facility] [address] [place] [id number] OBSTETRICAL ULTRASOUND REPORT Pat. Name: OSBALDO MCCANN Pat. No: [id number] Study Date: 07/29/2019 9:25pm , Age: 05 1985, 33 Pregnancies: 6, Para 1132 LMP: Unknown GA by 1st: 26w4d GA by US: 26w1d GA Selected: 26w4d (From First S) BETSY: 10/31/2019 Referring MD: JO PAUL Building Custodial Supervisor: Julianne Portillo RDMS CPT4: [id number] Admitting MD: CECILIO HOFFMAN Hist/Ind: HIGH BP SCAN 2 MEASUREMENTS AGE GROWTH EVALUATION Measurement GA Range Srce %for GA Ratios ----- ---- ------- BPD 6.5 cm 26w3d (93f2p-66q1p) Hadl BPD 46% FL/BPD 0.75 (0.71 - 0.87) HC 24.2 cm 26w0d (30g4d-95a1p) Hadl HC 39% FL/AC 0.21 (0.20 - 0.24) APD 7.3 cm APD HC/AC 1.05 (1.00 - 1.19) TAD 7.3 cm TADCI 0.80 (0.70 - 0.86) AC 22.9 cm 27w1d (35j7k-03f1y) Hadl AC 63% FL 4.9 cm 26w1d (56w5a-84w0h) Hadl FL 40% HL 4.5 cm 26w5d (49s7j-46h5q) Gian HL 53% GA for sonogram 26w1d (47c5d-19x1u) Weight Estimate: based on (BPD,HC,AC,FL) [place] Weight: [...] age. growth: Consistent with normal growth [facility] NAME: OSBALDO MCCANN Radiology Department PHYS: Cecilio Cavanaugh MD [address] : 1985 AGE: 33 SEX: F [place], [place] [address] LOC: Donovan3048 A PHONE #: [phone] EXAM DATE: 07/29/2019 STATUS: ADM IN FAX #: [phone] RAD NO: Page 1 Signed Report (CONTINUED) Patient Name: OSBALDO MCCANN Unit No: [id number] EXAMS: CPT CODE: [id number] US PREG AFTER TRI [id number] <Continued> motion and organs seen: heart motion [...] Julianne Portillo RDMS Probe: Trnscrbd D/ (0935) [email or web address] Orig Print D/T: S: 07/30/2019 (0935) [facility] NAME: OSBALDO MCCANN Radiology Department PHYS: Cecilio Cavanaugh MD [address] : 1985 AGE: 33 SEX: F [place] [address] LOC: F.3048 A PHONE #: [phone] EXAM DATE: 07/29/2019 STATUS: ADM IN FAX #: [phone] RAD NO: Page 2 Signed Report Patient Name: OSBALDO MCCANN Unit No: [id number] EXAMS: CPT CODE: [id number] US PREG AFTER 1ST TRI 82208 <Continued> [facility] NAME: OSBALDO MCCANN Radiology Department PHYS: Cecilio Cavanaugh MD [address] : 1985 AGE: 33 SEX: F [place] [address] LOC: F.3048 A PHONE #: [phone] EXAM DATE: 07/29/2019 STATUS: ADM IN FAX #: [phone] RAD NO: Page 3 Signed ReportGESTATION SCREEN [id number] 07:59:00 Test Item Value Reference Range Interpretation Comments GESTATION SCREEN GLUCOSE (test code 135 MG/DL <150 = GLU1S) GLU GEST SCRN 1 HR GLU GLU1S from 220:[id number].[id number] [id number] 05:55:00 Test Item Value Reference Range Interpretation Comments GLUCOSE FASTING (test code = GLUF) 96 mg/dL 65-110 N GLU GEST SCRN GLUFAST GLUFAST from 220:[id number] 13:37:00 Test Item Value Reference Range Interpretation Comments CREATININE (test code = CREAT) 0.7 mg/dL 0.5-1.0 N [id number] 13:37:00 Test Item Value Reference Range Interpretation Comments SGOT/AST (test code = AST) 12 units/L 15-37 L [id number] 13:37:00 Test Item Value Reference Range Interpretation Comments SGPT/ALT (test code = ALT) 15 units/L 12-78 N ALKALINE PHOSPHATASE [id number] 13:37:00 Test Item Value Reference Range Interpretation Comments ALKALINE PHOSPHATASE TOTAL (test 50 units/L 46-116 N code = ALKP) [id number] 13:37:00 Test Item Value Reference Range Interpretation Comments AMYLASE (test code = RAISA) 30 units/L 30-110 N [id number] 13:37:00 Test Item Value Reference Range Interpretation Comments LIPASE (test code = LIP) 60 units/L 73-393 L CBC W/AUTO [id number] 13:19:00 Test Item Value Reference Range Interpretation Comments WHITE BLOOD CELL (test code = WBC) 9.5 K/mm3 6.6-12.1 N RED BLOOD CELL (test code = RBC) 3.23 M/mm3 3.45-5.01 L HEMOGLOBIN (test code = HGB) 9.6 g/dL 10.7-13.9 L HEMATOCRIT (test code = HCT) 30.1 % 32.1-42.1 L MEAN CELL VOLUME (test code = MCV) 93 fL 84.1-94.8 N MEAN CELL HGB (test code = MCH) 29.7 pg 27-35 N MEAN CELL HGB CONCETRATION (test 31.9 gm/dL 32.2-34.1 L code = MCHC) RED CELL DISTRIBUTION WIDTH (test 12.7 % 12.4-16.5 N code = RDW) PLATELET COUNT (test code = PLT) 227 K/mm3 133-385 N MEAN PLATELET VOLUME (test code = 10.0 fl 9.1-12.7 N MPV) NEUTROPHIL % (test code = NT%) 66.3 % 56.5-79.4 N LYMPHOCYTE % (test code = LY%) 20.5 % 14.3-34.3 N MONOCYTE % (test code = MO%) 8.7 % 5.1-10.4 N EOSINOPHIL % (test code = EO%) 3.8 % 0.1-3.0 H BASOPHIL % (test code = BA%) 0.3 % 0.1-1.0 N NEUTROPHIL # (test code = NT#) 6.3 K/mm3 LYMPHOCYTE # (test code = LY#) 2.0 K/mm3 MONOCYTE # (test code = MO#) 0.8 K/mm3 EOSINOPHIL # (test code = EO#) 0.36 K/mm3 BASOPHIL # (test code = BA#) 0.0 K/mm3 RBC MORPHOLOGY REQUIRED (test code NORMAL NORMAL = RBCM) PLATELET MORPHOLOGY REQUIRED (test NORMAL NORMAL code = PLTMR) CHEMISTRY 7 [id number] 23:01:00 Test Item Value Reference Range Interpretation Comments SODIUM (test code = NA) 140 mEq/L 135-145 N POTASSIUM (test code = K) 3.8 mEq/L 3.5-5.0 N CHLORIDE (test code = CL) 104 mEq/L 100-115 N CARBON DIOXIDE (test code = CO2) 27 mEq/L 22-31 N ANION GAP (test code = GAP) 12.70 10-20 N GLUCOSE (test code = GLU) 99 mg/dL 65-110 N BLOOD UREA NITROGEN (test code = 10 mg/dL 7-18 N BUN) GLOMERULAR FILTRATION RATE (test 114 ml/min >60 N code = GFR) CREATININE (test code = CREAT) 0.6 mg/dL 0.5-1.0 N CALCIUM (test code = CA) 8.6 mg/dL 8.4-10.2 N URIC [id number] 23:01:00 Test Item Value Reference Range Interpretation Comments URIC ACID (test code = URIC) 3.7 mg/dL 2.6-6.0 N [id number] 23:01:00 Test Item Value Reference Range Interpretation Comments SGOT/AST (test code = AST) 22 units/L 15-37 N [id number] 23:01:00 Test Item Value Reference Range Interpretation Comments SGPT/ALT (test code = ALT) 26 units/L 12-78 N CHEMISTRY 7 [id number] 22:51:00 Test Item Value Reference Range Interpretation Comments SODIUM (test code = NA) 140 mEq/L 135-145 N POTASSIUM (test code = K) 3.8 mEq/L 3.5-5.0 N CHLORIDE (test code = CL) 104 mEq/L 100-115 N CARBON DIOXIDE (test code = CO2) 27 mEq/L 22-31 N ANION GAP (test code = GAP) 12.70 10-20 N GLUCOSE (test code = GLU) 99 mg/dL 65-110 N BLOOD UREA NITROGEN (test code = 10 mg/dL 7-18 N BUN) GLOMERULAR FILTRATION RATE (test 114 ml/min >60 N code = GFR) CREATININE (test code = CREAT) 0.6 mg/dL 0.5-1.0 N CALCIUM (test code = CA) 8.6 mg/dL 8.4-10.2 N URIC [id number] 22:51:00 Test Item Value Reference Range Interpretation Comments URIC ACID (test code = URIC) 3.7 mg/dL 2.6-6.0 N URINALYSIS [id number] 22:35:00 Test Item Value Reference Range Interpretation Comments UA COLOR (test code = COLU) YELLOW YELLOW UA APPEARANCE (test code = CLEAR CLEAR APPU) UA GLUCOSE DIPSTICK (test code NEGATIVE NEG = DGLUU) UA BILIRUBIN DIPSTICK (test NEGATIVE NEG code = BILU) UA KETONE DIPSTICK (test code TRACE NEG A = KETU) UA SPECIFIC GRAVITY (test code 1.023 1.001-1.035 N = SGU) UA BLOOD DIPSTICK (test code = NEG NEG JAY JAY) UA PH DIPSTICK (test code = 5.0 5-9 JOCELYNN) UA PROTEIN DIPSTICK (test code NEGATIVE NEG = PROU) UA UROBILINIOGEN DIPSTICK NEGATIVE mg/dL NEG (test code = URO) UA NITRITE DIPSTICK (test code NEG NEG = CANDIDO) UA LEUKOCYTE ESTERASE DIPSTICK NEG NEG (test code = LEUU) UA WBC (test code = WBCU) 0-2 #/hpf NONE SEEN UA RBC (test code = RBCU) 0-2 #/hpf NONE SEEN UA EPITHELIAL CELLS (test code RARE #/HPF RARE-FEW = EPIU) UA BACTERIA (test code = BACU) NEGATIVE /HPF RARE-FEW UA MUCUS (test code = MUCU) RARE NONE SEEN Comments to Public Health Assistant: CORETTA MCCORD SAMPLE: CLEAN CATCHCBC W/AUTO DIFF 2019-06-30 22:30:00 Test Item Value Reference Range Interpretation Comments WHITE BLOOD CELL (test code = WBC) 10.9 K/mm3 6.6-12.1 N RED BLOOD CELL (test code = RBC) 3.39 M/mm3 3.45-5.01 L HEMOGLOBIN (test code = HGB) 10.4 g/dL 10.7-13.9 L HEMATOCRIT (test code = HCT) 31.5 % 32.1-42.1 L MEAN CELL VOLUME (test code = MCV) 93 fL 84.1-94.8 N MEAN CELL HGB (test code = MCH) 30.7 pg 27-35 N MEAN CELL HGB CONCETRATION (test 33.0 gm/dL 32.2-34.1 N code = MCHC) RED CELL DISTRIBUTION WIDTH (test 12.7 % 12.4-16.5 N code = RDW) PLATELET COUNT (test code = PLT) 236 K/mm3 133-385 N MEAN PLATELET VOLUME (test code = 10.0 fl 9.1-12.7 N MPV) NEUTROPHIL % (test code = NT%) 66.9 % 56.5-79.4 N LYMPHOCYTE % (test code = LY%) 20.3 % 14.3-34.3 N MONOCYTE % (test code = MO%) 8.5 % 5.1-10.4 N EOSINOPHIL % (test code = EO%) 3.1 % 0.1-3.0 H BASOPHIL % (test code = BA%) 0.4 % 0.1-1.0 N NEUTROPHIL # (test code = NT#) 7.3 K/mm3 LYMPHOCYTE # (test code = LY#) 2.2 K/mm3 MONOCYTE # (test code = MO#) 0.9 K/mm3 EOSINOPHIL # (test code = EO#) 0.34 K/mm3 BASOPHIL # (test code = BA#) 0.0 K/mm3 RBC MORPHOLOGY REQUIRED (test code NORMAL NORMAL = RBCM) PLATELET MORPHOLOGY REQUIRED (test NORMAL NORMAL code = PLTMR) - US PREG UT [id number] 20:39:00 Patient Name: OSBALDO MCCANN Unit No: [id number] EXAMS: CPT CODE: [id number] US PREG UT TRANSVAGINAL 27855 Limited obstetrical ultrasound with transvaginal imaging of [...] Cecilio Hoffman Technologist: Shante Lazo RDMS Probe: [id number] Trnscrbd D/ (2038) t.SDR.DMM Orig Print D/T: S: 06/26/2019 (2041) [facility] NAME: OSBALDO MCCANNBETH Radiology Department PHYS: Cecilio Cavanaugh MD [address] : 1985 AGE: 33 SEX: [place], [place] [address] LOC: DonovanROMAN PHONE #: [phone] EXAM DATE: 06/26/2019 STATUS: REG ER FAX #: [phone] RAD NO: Page 1 Signed Report Patient Name: OSBALDO MCCANN Unit No: [id number] EXAMS: CPT CODE: [id number] US PREG [place] TRANSVAGINAL [address]3884 <Continued> [facility] NAME: OSBALDO MCCANN Radiology Department PHYS: Cecilio Cavanaugh MD [address] : 1985 AGE: 33 SEX: [place] [address] LOC: DonovanROMAN PHONE #: [phone] EXAM DATE: 06/26/2019 STATUS: REG ER FAX #: [phone] RAD NO: Page 2 Signed Report- US FLW [id number] 20:39:00 Patient Name: OSBALDO MCCANN Unit No: [id number] EXAMS: CPT CODE: [id number] [place] [address] Limited obstetrical ultrasound with transvaginal imaging of [...] Jaiden Durham MD CC: Jo Paul MD; [facility] Technologist: Shante Lazo RDMS Probe: Trnscrbd D/ (2038) t.SDR.DMM Orig Print D/T: S: 06/26/2019 (2041) [facility] NAME: OSBALDO MCCANN Radiology Department PHYS: HARSHA. Jo Paul MD [address] : 1985 AGE: 33 SEX: [place] [address] LOC: [place].ROMAN PHONE #: [phone] EXAM DATE: 06/26/2019 STATUS: REG ER FAX #: [phone] RAD NO: Page 1 Signed Report Patient Name: OSBALDO MCCANN Unit No: [id number] EXAMS: CPT CODE: [id number] [place] [address] <Continued> [facility] NAME: OSBALDO MCCANN Radiology Department PHYS: HARSHA. Jo Paul MD [address] : 1985 AGE: 33 SEX: [place] [address] LOC: [place].ROMAN PHONE #: [phone] EXAM DATE: 06/26/2019 STATUS: REG ER FAX #: [phone] RAD NO: Page 2 Signed ReportCOMPREHENSIVE METABOLIC PANEL 2019-06-26 20:15:00 Test Item Value Reference Range Interpretation Comments SODIUM (test code = NA) 140 mEq/L 135-145 N POTASSIUM (test code = K) 3.8 mEq/L 3.5-5.0 N CHLORIDE (test code = CL) 104 mEq/L 100-115 N CARBON DIOXIDE (test code = CO2) 27 mEq/L 22-31 N ANION GAP (test code = GAP) 12.60 10-20 N GLUCOSE (test code = GLU) 100 mg/dL 65-110 N BLOOD UREA NITROGEN (test code = 9 mg/dL 7-18 N BUN) GLOMERULAR FILTRATION RATE (test 114 ml/min >60 N code = GFR) CREATININE (test code = CREAT) 0.6 mg/dL 0.5-1.0 N TOTAL PROTEIN (test code = PROT) 5.5 gm/dL 6.3-8.2 L ALBUMIN (test code = ALB) 2.7 gm/dL 3.4-4.8 L CALCIUM (test code = CA) 8.5 mg/dL 8.4-10.2 N BILIRUBIN TOTAL (test code = BILT) 0.2 mg/dL 0.2-1.0 N SGOT/AST (test code = AST) 19 units/L 15-37 N SGPT/ALT (test code = ALT) 27 units/L 12-78 N ALKALINE PHOSPHATASE TOTAL (test 45 units/L 46-116 L code = ALKP) UA RFLX MICR CULT IF [id number] 19:55:00 Test Item Value Reference Range Interpretation Comments UA COLOR (test code = COLU) STRAW YELLOW UA APPEARANCE (test code = CLEAR CLEAR APPU) UA GLUCOSE DIPSTICK (test code NEGATIVE NEG = DGLUU) UA BILIRUBIN DIPSTICK (test NEGATIVE NEG code = BILU) UA KETONE DIPSTICK (test code NEGATIVE NEG = KETU) UA SPECIFIC GRAVITY (test code 1.008 1.001-1.035 N = SGU) UA BLOOD DIPSTICK (test code = NEG NEG JAY JAY) UA PH DIPSTICK (test code = 7.0 5-9 JOCELYNN) UA PROTEIN DIPSTICK (test code NEGATIVE NEG = PROU) UA UROBILINIOGEN DIPSTICK NEGATIVE mg/dL NEG (test code = URO) UA NITRITE DIPSTICK (test code NEG NEG = CANDIDO) UA LEUKOCYTE ESTERASE DIPSTICK NEG NEG (test code = LEUU) UA WBC (test code = WBCU) 0-2 #/hpf NONE SEEN UA RBC (test code = RBCU) 0-2 #/hpf NONE SEEN UA EPITHELIAL CELLS (test code RARE #/HPF RARE-FEW = EPIU) UA BACTERIA (test code = BACU) RARE /HPF RARE-FEW Indication for culture: Suprapubic PainUR PROTEIN/CREATININE [id number] 19:55:00 Test Item Value Reference Range Interpretation Comments UR PROTEIN RANDOM (test code = <6 mg/dL PROTU) UR CREATININE RANDOM (test 22.8 mg/dL code = CREATU) PROTEIN/CREATININE RATIO (test 260.0 mg/gcrea <200 H code = P/CRATIO) Indication for culture: Suprapubic PainUA RFLX MICR CULT IF INDICATED 2019-06-26 19:51:00 Test Item Value Reference Range Interpretation Comments UA COLOR (test code = COLU) STRAW YELLOW UA APPEARANCE (test code = CLEAR CLEAR APPU) UA GLUCOSE DIPSTICK (test code NEGATIVE NEG = DGLUU) UA BILIRUBIN DIPSTICK (test NEGATIVE NEG code = BILU) UA KETONE DIPSTICK (test code NEGATIVE NEG = KETU) UA SPECIFIC GRAVITY (test code 1.008 1.001-1.035 N = SGU) UA BLOOD DIPSTICK (test code = NEG NEG JAY JAY) UA PH DIPSTICK (test code = 7.0 5-9 JOCELYNN) UA PROTEIN DIPSTICK (test code NEGATIVE NEG = PROU) UA UROBILINIOGEN DIPSTICK NEGATIVE mg/dL NEG (test code = URO) UA NITRITE DIPSTICK (test code NEG NEG = CANDIDO) UA LEUKOCYTE ESTERASE DIPSTICK NEG NEG (test code = LEUU) UA WBC (test code = WBCU) 0-2 #/hpf NONE SEEN UA RBC (test code = RBCU) 0-2 #/hpf NONE SEEN UA EPITHELIAL CELLS (test code RARE #/HPF RARE-FEW = EPIU) UA BACTERIA (test code = BACU) RARE /HPF RARE-FEW Indication for culture: Suprapubic PainUR PROTEIN/CREATININE [id number] 19:51:00 Test Item Value Reference Range Interpretation Comments UR PROTEIN RANDOM (test code = mg/dL PROTU) UR CREATININE RANDOM (test code = mg/dL CREATU) PROTEIN/CREATININE RATIO (test code mg/gcrea <200 = P/CRATIO) Indication for culture: Suprapubic PainCBC W/AUTO [id number] 19:47:00 Test Item Value Reference Range Interpretation Comments WHITE BLOOD CELL (test code = WBC) 9.3 K/mm3 6.6-12.1 N RED BLOOD CELL (test code = RBC) 3.35 M/mm3 3.45-5.01 L HEMOGLOBIN (test code = HGB) 10.1 g/dL 10.7-13.9 L HEMATOCRIT (test code = HCT) 31.5 % 32.1-42.1 L MEAN CELL VOLUME (test code = MCV) 94 fL 84.1-94.8 N MEAN CELL HGB (test code = MCH) 30.1 pg 27-35 N MEAN CELL HGB CONCETRATION (test 32.1 gm/dL 32.2-34.1 L code = MCHC) RED CELL DISTRIBUTION WIDTH (test 12.4 % 12.4-16.5 N code = RDW) PLATELET COUNT (test code = PLT) 234 K/mm3 133-385 N MEAN PLATELET VOLUME (test code = 10.3 fl 9.1-12.7 N MPV) NEUTROPHIL % (test code = NT%) 63.0 % 56.5-79.4 N LYMPHOCYTE % (test code = LY%) 22.7 % 14.3-34.3 N MONOCYTE % (test code = MO%) 10.6 % 5.1-10.4 H EOSINOPHIL % (test code = EO%) 2.9 % 0.1-3.0 N BASOPHIL % (test code = BA%) 0.3 % 0.1-1.0 N NEUTROPHIL # (test code = NT#) 5.8 K/mm3 LYMPHOCYTE # (test code = LY#) 2.1 K/mm3 MONOCYTE # (test code = MO#) 1.0 K/mm3 EOSINOPHIL # (test code = EO#) 0.27 K/mm3 BASOPHIL # (test code = BA#) 0.0 K/mm3 RBC MORPHOLOGY REQUIRED (test code NORMAL NORMAL = RBCM) PLATELET MORPHOLOGY REQUIRED (test NORMAL NORMAL code = PLTMR)
--- OUTSIDE RECORDS SUMMARY | 2020-02-15 22:09 | XMS REPORT | Summary of Care ---
:1985 Author Organization [facility] Address [address] [place] [address] Care Team Providers Name Role Phone Ryan Juarez Primary Care Provider Encounter Details Date Type Department Care Team Description 02/04/2020 Letter (Out) [facility] Yesi Cifuentes RN [address] [place] [phone] [place] [address] Allergies No Known Allergiesdocumented as of this encounter (statuses as of 02/04/2020) Medications Medication Sig Dispensed Refills Start Date End Date Status traMADOL (ULTRAM) 50 Take 1 tablet by 20 tablet 0 03/02/2017 Active mg tablet mouth every 6 (six) hours as needed for Pain (scale 7-10). documented as of this encounter (statuses as of 02/04/2020) Active Problems Not on filedocumented as of this encounter (statuses as of 02/04/2020) Social History Tobacco Use Types Packs/Day Years Used Date Never Assessed Sex Assigned at Date Recorded Not on file documented as of this encounter Last Filed Vital Signs Not on filedocumented in this encounter Plan of Treatment Health Maintenance Due Date Last Done Comments VARICELLA VACCINES (1 of 2 - 1985 2-dose childhood series) Depression Screening 1996 DTaP,Tdap,and Td Vaccines (1 - 11/06/2003 Tdap) PAP SMEAR 2005 INFLUENZA VACCINE (#1) 2020 08/13/2019 PNEUMOCOCCAL 0-64 YEARS COMBINED Aged Out No longer eligible based on SERIES patient's age to complete this topic documented as of this encounter Results Not on filedocumented in this encounter
[2020-02-15 23:01] LABS: Basophils % 0.4 % (0-1.3); Protime INR 1.01; RBC Red Blood Cell Count 4.97 M/uL (3.86-4.86)
[2020-02-15] MEDS ORDERED: MORPHINE 2 MG/ML SYR ONE ×2 (23:01→23:43)
[2020-02-15] MEDS ORDERED: ONDANSETRON 4 MG/2 ML VIAL ONE (23:01)
[2020-02-15 23:05] LABS: Absolute Lymphocytes (CBC) 3.1 K/uL (0.7-4.9); Hematocrit 43.7 % (36.0-45.0); Lymphocytes % 28.9 % (15.3-44.8); MPV 8.4 fL (7.6-11.3)
[2020-02-15 23:18] LABS: ALT/SGPT 22 U/L (12-78); AST/SGOT 11 U/L (15-37); Albumin 4.4 g/dL (3.4-5.0); Alkaline Phosphatase 67 U/L (45-117); BUN Blood Urea Nitrogen 17 mg/dL (7-18); Bicarbonate 24 mmol/L (21-32); Bilirubin Direct < 0.1 mg/dL (0-0.2); Bilirubin Total 0.5 mg/dL (0.2-1.0); Glucose Level 101 mg/dL (74-106); Magnesium 2.5 mg/dL (1.8-2.4); NT PRO-BNP 10 pg/mL (<125); Potassium 3.3 mmol/L (3.5-5.1); Protein, Total 8.9 g/dL (6.4-8.2); Sodium Level 139 mmol/L (136-145); Troponin (Emerg Dept Use Only) < 0.02 ng/mL (0.0-0.045)
[2020-02-15 23:44] LABS: Urine Blood NEGATIVE (NEG); Urine Glucose NEGATIVE (NEG); Urine Protein NEGATIVE (NEG)
[2020-02-15] MEDS ORDERED: NA CHLORIDE 0.9% 1,000 ML ONE (23:48)
[2020-02-15 23:50] LABS: Creatine Phosphokinase 79 U/L (26-192)
[2020-02-16] MEDS ORDERED: NA CHLORIDE 0.9% 1,000 ML ONE (00:56)
[2020-02-16] MEDS ORDERED: MAGNE/ALUM HYDROXD 30 ML UCUP ONE (00:56)
[2020-02-16] MEDS ORDERED: LIDOCAINE VISCOUS 2% SOLN 15 ML UDC ONE (00:57)
[2020-02-16] MEDS ORDERED: LORazepam 2 MG/ML VIAL ONE (02:21)
[2020-02-16 02:51] LABS: Barbiturates NEGATIVE (NEGATIVE); Benzodiazepines NEGATIVE (NEGATIVE); Cocaine NEGATIVE (NEGATIVE); METHAMPHETAM POSITIVE (NEGATIVE); Methadone NEGATIVE (NEGATIVE); Opiates NEGATIVE (NEGATIVE); Phencyclidine NEGATIVE (NEGATIVE); THC Cannibis NEGATIVE (NEGATIVE)
--- NOTE | 2020-02-16 03:37 | ER ---
Nurse's Notes [facility] Name: Felicia York Age: 34 yrs Sex: Female : 1985 Arrival Date: 02/15/2020 Time: 22:08 Bed 8 Private MD: Diagnosis: Chest pain, unspecified;Hypertension-Established Presentation: 02/14 22:15 Chief complaint: Patient states: intermittent chest pain x 4-5 days that became worse ss last night. Pt states, "I don't have any shortness of breath, but it's like I can't get that full breath." Denies fever, cough. Coronavirus screen: Client denies travel out of the [place] in the last 14 days. At this time, the client does not indicate any symptoms associated with coronavirus-19. Ebola Screen: Patient denies exposure to infectious person. Patient denies travel to an Ebola-affected area in the 21 days before illness onset. Initial Sepsis Screen: Does the patient meet any 2 criteria? HR > 90 bpm. Yes Does the patient have a suspected source of infection? No. Patient's initial sepsis screen is negative. Risk Assessment: Do you want to hurt yourself or someone else? Patient reports no desire to harm self or others. Onset of symptoms was February 10, 2020. 22:15 Method Of Arrival: Ambulatory ss 22:15 Acuity: COMPA 3 ss Triage Assessment: 22:30 General: Appears in no apparent distress. uncomfortable, Behavior is cooperative, vc anxious. Pain: Complains of pain in mid-sternal area Pain does not radiate. Pain currently is 8 out of 10 on a pain scale. Quality of pain is described as sharp, stabbing, Pain began About a week Is continuous. Cardiovascular: Reports chest pain, nausea. 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 - Social history:: Smoking status: Patient/guardian denies using tobacco, the patient reports quitting approximately 1 years ago. Screenin:18 Abuse screen: Denies threats or abuse. Denies injuries from another. Nutritional ss screening: No deficits noted. Tuberculosis screening: Never had TB. Fall Risk None identified. Assessment: 22:20 General: Appears in no apparent distress. uncomfortable, Behavior is cooperative, vc appropriate for age, anxious, crying. Pain: Complains of pain in mid-sternal area Pain does not radiate. Pain currently is 8 out of 10 on a pain scale. Pain: Quality of pain is described as sharp, stabbing, Pain began Alleviated by nothing. Neuro: Level of Consciousness is awake, alert, obeys commands, Oriented to person, place, time, situation, Appropriate for age. Cardiovascular: Reports chest pain, nausea, Denies shortness of breath, Patient's skin is warm and dry. Chest pain quality is clutching, stabbing, is located in mid sternal. Respiratory: Reports "Hard to take deep breaths". GI: Reports nausea. : No signs and/or symptoms were reported regarding the genitourinary system. EENT: No signs and/or symptoms were reported regarding the EENT system. 22:45 Reassessment: patient gave approval to give information to her fiance on the phone. rr5 23:00 Reassessment: Patient appears in no apparent distress at this time. Patient states vc symptoms have not improved. 02/15 00:00 Reassessment: Patient appears in no apparent distress at this time. Patient and/or vc family updated on plan of care and expected duration. Pain level reassessed. 01:00 Reassessment: Patient appears in no apparent distress at this time. Patient and/or vc family updated on plan of care and expected duration. Pain level reassessed. 02:00 Reassessment: Patient appears in no apparent distress at this time. Patient and/or vc family updated on plan of care and expected duration. Pain level reassessed. Patient states symptoms have improved. 03:00 Reassessment: Patient appears in no apparent distress at this time. Patient and/or vc family updated on plan of care and expected duration. Pain level reassessed. Patient states feeling better. Patient states symptoms have improved. 04:00 Reassessment: Patient discharged, requests to stay in room for about 30 minutes before vc she leaves. Vital Signs: 02/14 22:15 Pulse 110; Resp 17; Temp 98.3(TE); Pulse Ox 98% on R/A; Weight 98.88 kg; Height 5 ft. 8 ss in. (172.72 cm); Pain 9/10; 22:18 BP 142 / 89; ss 22:30 BP 131 / 101; Pulse 114; Resp 18; Pulse Ox 100% on R/A; vc 23:30 BP 139 / 102; Pulse 106; Resp 11; Pulse Ox 99% on R/A; vc 02/15 00:30 BP 154 / 110; Pulse 106; Resp 16; Pulse Ox 100% ; rr5 01:30 BP 164 / 101; Pulse 92; Resp 15; Pulse Ox 98% ; rr5 02:00 BP 163 / 101; Pulse 87; Resp 17; Pulse Ox 100% ; rr5 03:00 BP 146 / 113; Pulse 94; Resp 18; Pulse Ox 100% ; rr5 03:30 BP 151 / 90; Pulse 87; Resp 20; Pulse Ox 99% on R/A; vc 02/14 22:15 Body Mass Index 33.15 (98.88 kg, 172.72 cm) ss ED Course: 02/14 22:08 Patient arrived in ED. cl3 22:15 Diogo Petersen MD is Attending Physician. mh7 22:17 Triage completed. ss 22:17 Nydia Knox, RN is Primary Nurse. vc 22:18 Arm band placed on right wrist. ss 22:18 Patient has correct armband on for positive identification. 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 Pulse ss ox on. NIBP on. Warm blanket given. 22:18 Patient maintains SpO2 saturation greater than 95% on room air. ss 22:30 Inserted saline lock: 20 gauge in right antecubital area, using aseptic technique. vc Blood collected. 22:48 XRAY Chest (1 view) In Process Unspecified. EDMS 02/15 03:36 Wolf Pendleton MD is Referral Physician. 7 03:45 No provider procedures requiring assistance completed. IV discontinued, intact, vc bleeding controlled, No redness/swelling at site. Pressure dressing applied. Administered Medications: 02/14 22:58 Drug: morphine 2 mg Route: IVP; Site: right antecubital; vc 22:58 Drug: Zofran (Ondansetron) 4 mg Route: IVP; Site: right antecubital; vc 23:53 Follow up: Response: No adverse reaction vc 23:45 Drug: morphine 2 mg Route: IVP; Site: right antecubital; vc 23:53 Follow up: Response: No adverse reaction; Pain is unchanged, physician notified vc 23:46 Drug: NS 0.9% 1000 ml Route: IV; Rate: 1000 ml; Site: right antecubital; vc 02/15 00:46 Follow up: IV Status: Completed infusion; IV Intake: 1000ml vc 01:06 Drug: GI Cocktail without - (Maalox Suspension 30 ml, Lidocaine Liquid 2 % 15 vc ml) Route: PO; 03:00 Follow up: Response: No adverse reaction vc 02:27 Drug: Ativan 1 mg Route: IVP; Site: right antecubital; vc 03:15 Follow up: Response: No adverse reaction; Anxiety decreased vc Intake: 00:46 IV: 1000ml; Total: 1000ml. vc Outcome: 03:36 Discharge ordered by [facility] 03:45 Condition: improved vc 03:45 Discharge instructions given to patient, Instructed on discharge instructions, follow up and referral plans. Demonstrated understanding of instructions, follow-up care. 05:01 Discharged to home ambulatory. vc 05:02 Patient left the ED. vc Signatures: Dispatcher [employer] Madiha Hall RN RN ss Roque, Raymond, RN RN rr5 Jovita Winn cl3 Nydia Knox RN RN vc Holmes, Maurice, MD MD 7
--- NOTE | 2020-02-16 03:37 | EDPHYS ---
Physician Documentation [facility] Name: Felicia York Age: 34 yrs Sex: Female : 1985 Arrival Date: 02/15/2020 Time: 22:08 Bed 8 Private MD: ED Physician Diogo Petersen HPI: 02/14 22:35 This 34 yrs old Female presents to ER via Ambulatory with complaints of Chest mh7 Pain. 22:35 The patient or guardian reports chest pain that is located primarily in the substernal mh7 area. The pain does not radiate. Associated signs and symptoms: Pertinent positives: nausea, recent travel, Pertinent negatives: abdominal pain, cough, diaphoresis, dizziness, headache, lower extremity pain, lower extremity swelling, lightheadedness, near syncope, palpitations, shortness of breath, syncope, vomiting. The chest pain is described as sharp. Duration: The patient or guardian reports multiple episodes, that are intermittent, that wax and wane, with no pattern. Modifying factors: The symptoms are alleviated by nothing. the symptoms are aggravated by emotionally stressful situations, movement. Severity of pain: At its worst the pain was moderate last night, in the emergency department the pain is unchanged. Patient reports intermittent chest pain for 5 days that worsened last night. She has had some nausea. She denies any SOB, abdominal pain, cough, fever.. 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 - Social history:: Smoking status: Patient/guardian denies using tobacco, the patient reports quitting approximately 1 years ago. ROS: 22:35 Constitutional: Negative for fever, chills, and weight loss, Eyes: Negative for injury, mh7 pain, redness, and discharge, ENT: Negative for injury, pain, and discharge, Neck: Negative for injury, pain, and swelling, Respiratory: Negative for shortness of breath, cough, wheezing, and pleuritic chest pain, Back: Negative for injury and pain, : Negative for injury, bleeding, discharge, and swelling, MS/Extremity: Negative for injury and deformity, Skin: Negative for injury, rash, and discoloration, Neuro: Negative for headache, weakness, numbness, tingling, and seizure, Psych: Negative for depression, anxiety, suicide ideation, homicidal ideation, and hallucinations, Allergy/Immunology: Negative for hives, rash, and allergies, Endocrine: Negative for neck swelling, polydipsia, polyuria, polyphagia, and marked weight changes, Hematologic/Lymphatic: Negative for swollen nodes, abnormal bleeding, and unusual bruising. Exam: 22:35 Head/Face: Normocephalic, atraumatic. Neck: Trachea midline, no thyromegaly or masses mh7 palpated, and no cervical lymphadenopathy. Supple, full range of motion without nuchal rigidity, or vertebral point tenderness. No Meningismus. 22:35 Respiratory: Lungs have equal breath sounds bilaterally, clear to auscultation and percussion. No rales, rhonchi or wheezes noted. No increased work of breathing, no retractions or nasal flaring. Abdomen/GI: Soft, non-tender, with normal bowel sounds. No distension or tympany. No guarding or rebound. No evidence of tenderness throughout. Back: No spinal tenderness. No costovertebral tenderness. Full range of motion. Skin: Warm, dry with normal turgor. Normal color with no rashes, no lesions, and no evidence of cellulitis. MS/ Extremity: Pulses equal, no cyanosis. Neurovascular intact. Full, normal range of motion. Neuro: Awake and alert, GCS 15, oriented to person, place, time, and situation. Cranial nerves II-XII grossly intact. Motor strength 5/5 in all extremities. Sensory grossly intact. Cerebellar exam normal. Normal gait. 22:35 Constitutional: The patient appears in no acute distress, alert, awake, anxious. 22:35 Chest/axilla: Inspection: normal, Palpation: tenderness, that is moderate, of the mid-sternal area, that totally reproduces the patient's complaints, Axilla: are normal, Lymph nodes: lymphadenopathy is not appreciated. 22:35 Cardiovascular: Rate: tachycardic, Rhythm: regular, Pulses: no pulse deficits are appreciated, Heart sounds: normal, normal S1and S2, Edema: is not appreciated, JVD: is not appreciated. 22:35 Psych: Behavior/mood is cooperative, anxious, Affect is calm, Oriented to person, place, time, Patient has no thoughts/intents to harm self or others. Judgement / Insight is normal. Memory is normal. Delusions/hallucinations are not present. 02/15 03:28 ECG was reviewed by the Attending Physician. [facility] Vital Signs: 02/14 22:15 Pulse 110; Resp 17; Temp 98.3(TE); Pulse Ox 98% on R/A; Weight 98.88 kg; Height 5 ft. 8 ss in. (172.72 cm); Pain 9/10; 22:18 BP 142 / 89; ss 22:30 BP 131 / 101; Pulse 114; Resp 18; Pulse Ox 100% on R/A; vc 23:30 BP 139 / 102; Pulse 106; Resp 11; Pulse Ox 99% on R/A; vc 02/15 00:30 BP 154 / 110; Pulse 106; Resp 16; Pulse Ox 100% ; rr5 01:30 BP 164 / 101; Pulse 92; Resp 15; Pulse Ox 98% ; rr5 02:00 BP 163 / 101; Pulse 87; Resp 17; Pulse Ox 100% ; rr5 03:00 BP 146 / 113; Pulse 94; Resp 18; Pulse Ox 100% ; rr5 03:30 BP 151 / 90; Pulse 87; Resp 20; Pulse Ox 99% on R/A; vc 02/14 22:15 Body Mass Index 33.15 (98.88 kg, 172.72 cm) ss MDM: 02/14 22:33 Patient medically screened. [facility] 02/15 03:28 Differential diagnosis: acute myocardial infarction, acute pericarditis, anxiety, [facility] coronary artery disease chest wall pain, costochondritis, myocarditis, pericarditis, pneumonia, pneumothorax, pulmonary embolus. HEART Score: History: Slightly Suspicious (0), ECG: Non specific repolarization disturbance / LBTB / PM (1), Age: < or = 45 years (0), Risk Factors: 1 or 2 risk factors (1), [Hypertension] Troponin: < or = 1 x Normal Limit (0), Total Score = 2. Data reviewed: vital signs, nurses notes, old medical records, lab test result(s), cardiac enzymes, CBC, electrolytes, urinalysis, urine drug screen, EKG, radiologic studies, plain films. Data interpreted: Pulse oximetry: on room air is 100 %. Interpretation: normal. Counseling: I had a detailed discussion with the patient and/or guardian regarding: the historical points, exam findings, and any diagnostic results supporting the discharge/admit diagnosis, the presence of at least one elevated blood pressure reading (>120/80) during this emergency department visit, lab results, radiology results. Response to treatment: the patient's symptoms have markedly improved after treatment, the patient is now symptom free. Refusal of service: The patient/guardian displays adequate decision making capability and despite a detailed discussion of alternatives, benefits, risks, and consequences refuses: Medications. 06:21 Counseling: I had a detailed discussion with the patient and/or guardian regarding: the 7 need for outpatient follow up, to return to the emergency department if symptoms worsen or persist or if there are any questions or concerns that arise at home. ED course: NAD, VSS, no focal neurological deficits. No chest pain, SOB, nausea, vomiting. Discussed all test results and findings with the patient. She requested to be discharged from the ED. She will follow up with her doctor but agreed to return to the ED if worsening of symptoms or other concerns.. 02/14 22:34 Order name: Basic Metabolic Panel; Complete Time: 00:35 [facility] 02/14 22:34 Order name: CBC with Diff; Complete Time: 23:24 [facility] 02/14 22:34 Order name: LFT's; Complete Time: 00:35 [facility] 02/14 22:34 Order name: Magnesium; Complete Time: 00:35 [facility] 02/14 22:34 Order name: NT PRO-BNP; Complete Time: 00:35 [facility] 02/14 22:34 Order name: PT-INR; Complete Time: 00:35 [facility] 02/14 22:34 Order name: Troponin (emerg Dept Use Only); Complete Time: 00:35 [facility] 02/14 23:13 Order name: Urine Dipstick--Ancillary (enter results); Complete Time: 00:35 ss 02/14 23:13 Order name: Urine --Ancillary (enter results); Complete Time: 00:35 ss 02/14 23:31 Order name: D-Dimer; Complete Time: 00:35 [facility] 02/14 23:31 Order name: Creatine Phosphokinase; Complete Time: 00:35 [facility] 02/14 22:34 Order name: XRAY Chest (1 view) [facility] 02/14 22:34 Order name: EKG; Complete Time: 22:35 [facility] 02/14 22:34 Order name: Cardiac monitoring; Complete Time: 22:36 [facility] 02/14 22:34 Order name: EKG - Nurse/Tech; Complete Time: 22:36 [facility] 02/14 22:34 Order name: IV Saline Lock; Complete Time: 22:36 [facility] 02/14 22:34 Order name: Labs collected and sent; Complete Time: 22:36 [facility] 02/14 22:34 Order name: O2 Per Protocol; Complete Time: 22:36 [facility] 02/14 23:32 Order name: Thyroid Stimulating Hormone; Complete Time: 00:35 [facility] 02/14 23:54 Order name: T4 Free; Complete Time: 00:35 [facility] 02/15 02:12 Order name: UDS; Complete Time: 03:03 02/15 02:28 Order name: Troponin (emerg Dept Use Only); Complete Time: 03:03 02/14 22:34 Order name: O2 Sat Monitoring; Complete Time: 22:36 [facility] 02/14 22:34 Order name: Urine Dipstick-Ancillary (obtain specimen); Complete Time: 23:12 [facility] 02/14 22:34 Order name: Urine Test (obtain specimen); Complete Time: 23:12 mh7 EC:28 Rate is 106 beats/min. Rhythm is regular, Sinus tachycardia. QRS [place] is Normal. [place] mh7 interval is normal. QRS interval is normal. QT interval is normal. No Q waves. T waves are Normal. No ST changes noted. Clinical impression: Sinus tachycardia. Administered Medications: 02/14 22:58 Drug: morphine 2 mg Route: IVP; Site: right antecubital; vc 22:58 Drug: Zofran (Ondansetron) 4 mg Route: IVP; Site: right antecubital; vc 23:53 Follow up: Response: No adverse reaction vc 23:45 Drug: morphine 2 mg Route: IVP; Site: right antecubital; vc 23:53 Follow up: Response: No adverse reaction; Pain is unchanged, physician notified vc 23:46 Drug: NS 0.9% 1000 ml Route: IV; Rate: 1000 ml; Site: right antecubital; vc 02/15 00:46 Follow up: IV Status: Completed infusion; IV Intake: 1000ml vc 01:06 Drug: GI Cocktail without - (Maalox Suspension 30 ml, Lidocaine Liquid 2 % 15 vc ml) Route: PO; 03:00 Follow up: Response: No adverse reaction vc 02:27 Drug: Ativan 1 mg Route: IVP; Site: right antecubital; vc 03:15 Follow up: Response: No adverse reaction; Anxiety decreased vc Disposition: 06:21 Co-signature as Attending Physician, Diogo Petersen MD. 7 Disposition: 02/16/20 03:36 Discharged to Home. Impression: Chest pain, unspecified, Hypertension-Established. - Condition is Stable. - Discharge Instructions: Nonspecific Chest Pain, [id number], Hypertension, [id number]. - Work release form, Medication Reconciliation Form, Thank You Letter, Antibiotic Education, Prescription Opioid Use form. - Follow up: Private Physician; When: 24 Hours; Reason: Worsening of condition, Recheck today's complaints, Continuance of care, Re-evaluation by your physician. Follow up: Wolf Pendleton MD; When: 1 - 2 days; Reason: Worsening of condition, Recheck today's complaints. - Problem is an acute exacerbation. - Symptoms have improved. Signatures: Dispatcher [employer] [facility] Madiha Mata RN RN ss Calcote, Vanessa, RN RN vc Holmes, Maurice, MD MD 7 Corrections: (The following items were deleted from the chart) 02/14 23:31 23:28 CREATINE PHOSPHOKINASE+C.LAB.BRZ ordered. [facility] 23:31 23:28 D-DIMER+COAG.LAB.BRZ ordered. [facility] 23:32 23:31 THYROID STIMULAT HORMONE+C.LAB.BRZ ordered. [facility] 02/15 05:02 03:36 02/16/2020 03:36 Discharged to Home. Impression: Chest pain, unspecified; vc Hypertension-Established. Condition is Stable. Forms are Medication Reconciliation Form, Thank You Letter, Antibiotic Education, Prescription Opioid Use. Follow up: Private Physician; When: 24 Hours; Reason: Worsening of condition, Recheck today's complaints, Continuance of care, Re-evaluation by your physician. Follow up: Wolf Pendleton; When: 1 - 2 days; Reason: Worsening of condition, Recheck today's complaints. Problem is an acute exacerbation. Symptoms have improved. mh7
[2020-02-16 05:42] VITALS: TEMP 98.3
[2020-02-16 05:51] VITALS: BP 151/90; O2SAT 99
--- NOTE | 2020-02-16 10:51 | RAD REPORT ---
EXAM DESCRIPTION: RAD - Chest Single View - 02/15/2020 10:48 pm CLINICAL HISTORY: The patient is 34 years old and is Female; CHEST PAIN TECHNIQUE: Frontal view of the chest. COMPARISON: No relevant prior studies available. FINDINGS: LUNGS: Unremarkable. No consolidation. PLEURAL SPACE: Unremarkable. No pneumothorax. HEART: Unremarkable. No cardiomegaly. MEDIASTINUM: Unremarkable. BONES/JOINTS: Unremarkable. IMPRESSION: No acute cardiopulmonary process. Electronically signed by: Lindsay Pruett MD 02/16/2020 1:09 AM CDT Due to temporary technical issues with the PACS/Fluency reporting system, reports are being signed by the in house radiologist without review as a courtesy to ensure prompt reporting. The interpreting r adiologist is fully responsible for the content of the report.
--- NOTE | 2020-02-17 05:58 | EKG ---
Test Date: 2020-02-15 Test Time: 22:22:31 Supervisor [employer]: AKIRA MEASUREMENT RESULTS: Intervals: Rate: 106 NH: 168 QRSD: 98 QT: 340 QTc: 451 Hay: P: 82 NH: 168 QRS: 81 T: 28 INTERPRETIVE STATEMENTS: Sinus tachycardia Biatrial enlargement Abnormal ECG Compared to ECG 02/15/2020 22:18:08 No significant changes Electronically Signed On 02-17-20 05:55:31 CDT by Wolf Pendleton
--- NOTE | 2020-02-17 05:58 | EKG ---
Test Date: 2020-02-15 Test Time: 22:18:08 Emergency Department Coordinator: AKIRA MEASUREMENT RESULTS: Intervals: Rate: 105 SC: 176 QRSD: 94 QT: 332 QTc: 438 Harvest: P: 69 SC: 176 QRS: 65 T: 35 INTERPRETIVE STATEMENTS: Sinus tachycardia Biatrial enlargement Abnormal ECG Compared to ECG 02/12/2016 19:08:58 Atrial abnormality now present T-wave abnormality no longer present Possible ischemia no longer present Electronically Signed On 02-17-20 05:55:32 CDT by Wolf Pendleton
== END 2020-02-16 05:02 | disposition home or self-care (01) ==
LOC: ER 22:05
DX: I10 Essential (primary) hypertension (principal)
CPT/HCPCS: 96361; 93005 ×2; 85025; 80048; 36415 ×2; 83735; 82550; 81025; 85610; 85379; 80076; 80307 ×8; 84443; 81003; 84484 ×2; 84439; 83880; 71045; 96375; 96374; 99285; J2270 ×2; J7030 ×2; J2405

== ENCOUNTER 2020-09-19 19:23 | Emergency (ER) | payer OTHER, SELFPAY ==
[2020-09-19 21:18] LABS: Absolute Lymphocytes (CBC) 2.8 K/uL (0.7-4.9); Hematocrit 34.1 % (36.0-45.0); Lymphocytes % 23.7 % (15.3-44.8); MPV 8.3 fL (7.6-11.3); RBC Red Blood Cell Count 3.99 M/uL (3.86-4.86)
[2020-09-19] MEDS ORDERED: ONDANSETRON 4 MG/2 ML VIAL ONE (21:20)
[2020-09-19] MEDS ORDERED: NA CHLORIDE 0.9% 1,000 ML ONE (21:20)
[2020-09-19] MEDS ORDERED: MORPHINE 4 MG/ML SYR ONE (21:20)
[2020-09-19 21:28] LABS: Urine Blood Negative (Negative); Urine Glucose Negative (Negative); Urine Protein 2+ (Negative); Urine pH 8.5 (5.0-7.0)
[2020-09-19 21:42] LABS: Albumin 3.5 g/dL (3.4-5.0); Bilirubin Direct 0.1 mg/dL (0-0.2); Bilirubin Total 0.5 mg/dL (0.2-1.0); Potassium 3.8 mmol/L (3.5-5.1); Protein, Total 6.9 g/dL (6.4-8.2)
[2020-09-19] MEDS ORDERED: HYDROMORPHONE HCL 1 MG/ML INJ ONE (22:42)
--- NOTE | 2020-09-19 22:57 | EDPHYS ---
Physician Documentation [facility] Name: Felicia Cheung Age: 34 yrs Sex: Female : 1985 Arrival Date: 09/19/2020 Time: 19:26 Bed 15 Private MD: See Farrell HPI: 09/19 20:13 This 34 yrs old Female presents to ER via Ambulatory with complaints of jmm Abdominal Pain, Diarrhea, Nausea/Vomiting. 20:13 The patient presents with abdominal pain. Onset: The symptoms/episode began/occurred jmm gradually, 2 week(s) ago. The symptoms do not radiate. Associated signs and symptoms: Pertinent positives: nausea, vomiting, and diarrhea, nausea and vomiting. The symptoms are described as achy. The patient has not experienced similar symptoms in the past. 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 - Social history:: Smoking status: Patient/guardian denies using tobacco, the patient reports quitting approximately 2 years ago. ROS: 20:13 Constitutional: Negative for fever, chills, and weight loss, Cardiovascular: Negative jmm for chest pain, palpitations, and edema, Respiratory: Negative for shortness of breath, cough, wheezing, and pleuritic chest pain. 20:13 Abdomen/GI: Positive for abdominal pain, nausea and vomiting, diarrhea. 20:13 All other systems are negative. Exam: 20:13 Constitutional: This is a well developed, well nourished patient who is awake, alert, jmm and in no acute distress. Head/Face: atraumatic. Eyes: EOMI, no conjunctival erythema appreciated ENT: Moist Mucus Membranes Neck: Trachea midline, Supple Chest/axilla: Normal chest wall appearance and motion. Cardiovascular: Regular rate and rhythm. No edema appreciated Respiratory: Normal respirations, no respiratory distress appreciated 20:13 Back: Normal ROM Skin: General appearance color normal MS/ Extremity: Moves all extremities, no obvious deformities appreciated, no edema noted to the lower extremities Neuro: Awake and alert, normal gait Psych: Behavior is normal, Mood is normal, Patient is cooperative and pleasant 20:13 Abdomen/GI: Inspection: abdomen appears normal, Bowel sounds: normal, Palpation: soft, mild abdominal tenderness, in all quadrants. Vital Signs: 19:44 BP 155 / 106; Pulse 70; Resp 16 S; Temp 97.9(TE); Pulse Ox 100% on R/A; Weight 112.94 ca1 kg (R); Height 5 ft. 8 in. (172.72 cm) (R); Pain 7/10; 20:00 BP 100 / 61; Pulse 75; Resp 16; Pulse Ox 100% on R/A; zb 22:00 BP 124 / 92; Pulse 76; Resp 16; Pulse Ox 99% on R/A; zb 23:27 BP 95 / 45; Pulse 61; Resp 16; Pulse Ox 100% on R/A; zb 19:44 Body Mass Index 37.86 (112.94 kg, 172.72 cm) ca1 MDM: 20:13 Patient medically screened. [facility] 22:55 Data reviewed: vital signs, nurses notes. Counseling: I had a detailed discussion with dmitriy the patient and/or guardian regarding: the historical points, exam findings, and any diagnostic results supporting the discharge/admit diagnosis, lab results, radiology results, the need for outpatient follow up, to return to the emergency department if symptoms worsen or persist or if there are any questions or concerns that arise at home. ED course: Patient advised to follow up with gi for further evaluation. patient understood and agrees with the plan of care. . 09/19 20:42 Order name: Basic Metabolic Panel; Complete Time: 22:00 [facility] 09/19 20:42 Order name: CBC with Diff; Complete Time: 21:21 [facility] 09/19 20:42 Order name: Hepatic Function; Complete Time: 22:00 [facility] 09/19 20:42 Order name: Lipase; Complete Time: 22:00 [facility] 09/19 21:28 Order name: Urine Dipstick-Ancillary; Complete Time: 21:31 [facility] 09/19 21:29 Order name: Urine --Ancillary (enter results) ar5 09/19 20:42 Order name: IV Saline Lock; Complete Time: 20:57 [facility] 09/19 20:42 Order name: Labs collected and sent; Complete Time: 20:57 [facility] 09/19 21:12 Order name: CT Abd/Pelvis - IV Contrast Only [facility] 09/19 21:30 Order name: Urine --Ancillary; Complete Time: 22:49 [facility] 09/19 20:42 Order name: Urine Dipstick-Ancillary (obtain specimen); Complete Time: 22:45 [facility] 09/19 20:42 Order name: Urine Test (obtain specimen); Complete Time: 22:45 [facility] Administered Medications: 21:09 Drug: morphine 4 mg {Note: RASS 0.} Route: IVP; Site: right antecubital; zb 22:00 Follow up: Response: No adverse reaction; Pain is decreased zb 21:09 Drug: Zofran (Ondansetron) 4 mg Route: IVP; Site: right antecubital; zb 23:26 Follow up: Response: No adverse reaction; Marked relief of symptoms; Nausea is decreasedzb 21:10 Drug: NS 0.9% 1000 ml Route: IV; Rate: 1 bolus; Site: right antecubital; zb 23:27 Follow up: Response: No adverse reaction; Marked relief of symptoms; IV Status: zb Completed infusion; IV Intake: 1000ml 22:45 Drug: Dilaudid (HYDROmorphone) 1 mg {Note: RASS 0.} Route: IVP; Site: right antecubital;zb 23:26 Follow up: Response: No adverse reaction; Marked relief of symptoms; Pain is decreased; zb RASS: Alert and Calm (0) Disposition: 09/20 06:43 Co-signature as Attending Physician, See Rosario MD I agree with the assessment and haydee plan of care. Disposition: 09/19/20 22:56 Discharged to Home. Impression: Unspecified abdominal pain, Diarrhea, unspecified. - Condition is Stable. - Discharge Instructions: Abdominal Pain, Adult, Food Choices to Help Relieve Diarrhea, Adult. - Prescriptions for Zofran ODT 4 mg Oral tablet,disintegrating - place 1 tablet by TRANSLINGUAL route every 4-6 hours; 20 tablet. Bentyl 20 mg Oral Tablet - take 2 tablet by ORAL route every 6 hours As needed; 40 tablet. Ultracet 37.5- 325 mg Oral Tablet - take 1 tablet by ORAL route every 6 hours - for up to 5 days; do not exceed 8 tablets per day.; 12 tablet. - Medication Reconciliation Form, Thank You Letter, Antibiotic Education, Prescription Opioid Use, Work release form form. - Follow up: Private Physician; When: 2 - 3 days; Reason: Recheck today's complaints, Continuance of care, Re-evaluation by your physician. Signatures: Dispatcher [employer] EDSee Martins MD MD cha Mickail, Joel, PA PA jmm Acob, Cheryl, RN RN ca1 Brown, Zipporah, RN RN zb Corrections: (The following items were deleted from the chart) 09/19 23:35 22:56 09/19/2020 22:56 Discharged to Home. Impression: Unspecified abdominal pain; zb Diarrhea, unspecified. Condition is Stable. Forms are Medication Reconciliation Form, Thank You Letter, Antibiotic Education, Prescription Opioid Use. Follow up: Private Physician; When: 2 - 3 days; Reason: Recheck today's complaints, Continuance of care, Re-evaluation by your physician. dmitriy
--- NOTE | 2020-09-19 22:57 | ER ---
Nurse's Notes [facility] [place] Name: Felicia Cheung Age: 34 yrs Sex: Female : 1985 Arrival Date: 09/19/2020 Time: 19:26 Bed 15 Private MD: Diagnosis: Unspecified abdominal pain;Diarrhea, unspecified Presentation: 09/19 19:44 Chief complaint: Patient states: Diarrhea x 2 weeks, loose, watery, foul-smelling. ca1 Reports Upper abdominal pain, N/V. Coronavirus screen: Client denies travel out of the [place] in the last 14 days. diarrhea, nausea, vomiting. Client presents with at least one sign or symptom that may indicate coronavirus-19. Standard/surgical mask placed on the client. Provider contacted for isolation considerations. Ebola Screen: Patient negative for fever greater than or equal to 101.5 degrees Fahrenheit, and additional compatible Ebola Virus Disease symptoms Patient denies exposure to infectious person. Patient denies travel to an Ebola-affected area in the 21 days before illness onset. No symptoms or risks identified at this time. Initial Sepsis Screen: Does the patient meet any 2 criteria? No. Patient's initial sepsis screen is negative. Does the patient have a suspected source of infection? No. Patient's initial sepsis screen is negative. Risk Assessment: Do you want to hurt yourself or someone else? Patient reports no desire to harm self or others. Onset of symptoms was September 19, 2020. 19:44 Method Of Arrival: Ambulatory ca1 19:44 Acuity: COMPA 3 ca1 Triage Assessment: 23:20 General: Appears in no apparent distress. Behavior is calm, cooperative. 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 - Social history:: Smoking status: Patient/guardian denies using tobacco, the patient reports quitting approximately 2 years ago. Screenin:50 Abuse screen: Denies threats or abuse. Denies injuries from another. Nutritional zb screening: No deficits noted. Tuberculosis screening: No symptoms or risk factors identified. Fall Risk None identified. Assessment: 21:00 General: Appears uncomfortable, Behavior is agitated, anxious. Pain: Complains of pain zb in abdomen diffusely Pain currently is 8 out of 10 on a pain scale. Quality of pain is described as aching, dull, sharp, Pain began 2 weeks Is intermittent, Alleviated by nothing. Neuro: Level of Consciousness is awake, alert, obeys commands, Oriented to person, place, time, situation. Cardiovascular: Capillary refill < 3 seconds Patient's skin is warm and dry. Respiratory: Airway is patent Trachea midline Respiratory effort is even, unlabored, Respiratory pattern is regular, symmetrical. GI: Abdomen is round Bowel sounds present X 4 quads. Abdomen is tender to palpation X 4 quads. Guarding noted. GI: Reports upper abdominal pain, bloating, diarrhea, nausea. : Urine is clear. Derm: No signs and/or symptoms reported regarding the dermatologic system. Musculoskeletal: Circulation, motion, and sensation intact. Range of motion: intact in all extremities. 22:00 Reassessment: Patient appears in no apparent distress at this time. Patient and/or zb family updated on plan of care and expected duration. Pain level reassessed. Patient is alert, oriented x 3, equal unlabored respirations, skin warm/dry/pink. 23:00 Reassessment: Patient and/or family updated on plan of care and expected duration. Pain zb level reassessed. Patient is alert, oriented x 3, equal unlabored respirations, skin warm/dry/pink. Reassessment: Patient appears in no apparent distress at this time. 23:35 Reassessment: patient appears to be doing well. d/c instructions given up at [facility]. gait zb steady and even. Vital Signs: 19:44 BP 155 / 106; Pulse 70; Resp 16 S; Temp 97.9(TE); Pulse Ox 100% on R/A; Weight 112.94 ca1 kg (R); Height 5 ft. 8 in. (172.72 cm) (R); Pain 7/10; 20:00 BP 100 / 61; Pulse 75; Resp 16; Pulse Ox 100% on R/A; zb 22:00 BP 124 / 92; Pulse 76; Resp 16; Pulse Ox 99% on R/A; zb 23:27 BP 95 / 45; Pulse 61; Resp 16; Pulse Ox 100% on R/A; zb 19:44 Body Mass Index 37.86 (112.94 kg, 172.72 cm) ca1 ED Course: 19:26 Patient arrived in ED. bp1 19:46 Triage completed. ca1 19:47 Arm band placed on right wrist. ca1 20:01 Sudhakar Pryor PA is PHCP. dmitriy 20:01 See Rosario MD is Attending Physician. jmm 20:43 Niurka Evans RN is Primary Nurse. zb 20:56 Inserted saline lock: 20 gauge in right antecubital area, using aseptic technique. dh4 Blood collected. 21:00 Patient has correct armband on for positive identification. Bed in low position. Call zb light in reach. Side rails up X 1. Pulse ox on. NIBP on. Door closed. Noise minimized. Warm blanket given. 22:16 CT Abd/Pelvis - IV Contrast Only In Process Unspecified. EDMS 23:23 No provider procedures requiring assistance completed. IV discontinued, intact, zb bleeding controlled, No redness/swelling at site. Pressure dressing applied. Administered Medications: 21:09 Drug: morphine 4 mg {Note: RASS 0.} Route: IVP; Site: right antecubital; zb 22:00 Follow up: Response: No adverse reaction; Pain is decreased zb 21:09 Drug: Zofran (Ondansetron) 4 mg Route: IVP; Site: right antecubital; zb 23:26 Follow up: Response: No adverse reaction; Marked relief of symptoms; Nausea is decreasedzb 21:10 Drug: NS 0.9% 1000 ml Route: IV; Rate: 1 bolus; Site: right antecubital; zb 23:27 Follow up: Response: No adverse reaction; Marked relief of symptoms; IV Status: zb Completed infusion; IV Intake: 1000ml 22:45 Drug: Dilaudid (HYDROmorphone) 1 mg {Note: RASS 0.} Route: IVP; Site: right antecubital;zb 23:26 Follow up: Response: No adverse reaction; Marked relief of symptoms; Pain is decreased; zb RASS: Alert and Calm (0) Intake: 23:27 IV: 1000ml; Total: 1000ml. zb Outcome: 22:56 Discharge ordered by . jmm 23:35 Patient left the ED. zb 23:35 Discharged to home ambulatory. zb 23:35 Condition: stable 23:35 Discharge instructions given to patient, Instructed on discharge instructions, follow up and referral plans. Demonstrated understanding of instructions, follow-up care, medications, Prescriptions given X 3. Signatures: Dispatcher [employer] EDSudhakar Mederos PA PA jmm Acob, Cheryl, RN RN [facility] Edilberto Booker [facility] Jessica Schuler [place], RN RN zb
[2020-09-20 00:34] VITALS: TEMP 97.9
[2020-09-20 00:38] VITALS: BP 95/45; O2SAT 100
--- NOTE | 2020-09-20 11:16 | RAD REPORT ---
EXAM DESCRIPTION: CT - Abdomen Pelvis W Contrast - 09/20/2020 6:20 am CLINICAL HISTORY: Abdominal distention;Dyspnea;PE;Dissection COMPARISON: None Available. TECHNIQUE: CTA of the chest, abdomen and pelvis performed following IV administration of iodinated c ontrast. 3-D/MIP reformatted images available. This exam was performed according to our departmental dose-optimization program, which includes automated exposure control, adjustment of the mA and/or kV according to patient size and/or use of iterative reconstruction technique. FINDINGS: CTA: Normal caliber thoracic aorta without evidence of dissection. The great vessels have normal anatomic configuration and are patent throughout their visualized extent. Normal caliber abdominal aorta witho ut evidence of dissection. There is in-line flow from the aorta through the common iliac, external il iac, common femoral, and proximal superficial femoral arteries. The profunda femoral and internal steph ac arteries are patent. The celiac, superior mesenteric, and inferior mesenteric arteries are widely patent without evidence of stenosis or occlusion. The renal arteries are widely patent. Accessory inf erior pole left renal artery. Pulmonary arteries demonstrate no filling defects. Chest: Thyroid: No abnormalities of the visualized thyroid. Great Vessels: Great vessels have normal anatomic configuration. Heart: No cardiomegaly, significant pericardial effusion, or coronary artery atherosclerosis Lymph Nodes: No enlarged mediastinal lymph nodes identified. Esophagus: No abnormalities of the esophagus identified Other: No additional findings. Lungs: No airspace opacities identified. Pleura: No pleural effusion or pneumothorax. Trachea/Airways: No abnormalities of the visualized trachea or airways. Abdomen: Liver: Heterogeneous liver parenchyma may be due to arterial phase of contrast bolus timing. Mild pro minence of the common bile duct measuring 1.5 cm. Gallbladder: Prior cholecystectomy. Spleen, Pancreas, and Adrenal Glands: Heterogeneous appearance of the spleen may be related to erin rial phase of contrast. The adrenal glands and pancreas are unremarkable. Kidneys: The kidneys have normal size and contour without evidence of solid mass or hydronephrosis. Vasculature: The aorta and IVC have normal caliber and position. The portal vein is patent. The pro ximal visceral and renal arteries are patent. Stomach: The stomach and duodenum have normal course. Other: No free intraperitoneal air. No free fluid or lymphadenopathy. Pelvis: Bladder: Urinary bladder is unremarkable. Bowel: No dilated loops of large or small bowel. Appendix: Normal appendix. Pelvis: Bilateral ovarian cysts, largest on the right measuring 3.8 cm. Uterus is not enlarged. Bones: No destructive bone lesions identified. IMPRESSION: 1. No evidence of aortic dissection or aneurysm. No pulmonary embolus. 2. Bilateral ovarian cysts, largest on the right measuring 3.8 cm. No follow-up imaging is recommen ded. Reference: J Am Jr Radiol 2013;10:675-681 3. Mild prominence of the common bile duct measuring 1.5 cm. This may be related to previous cholec ystectomy. Correlation with liver function studies recommended. If there is concern for biliary obstr uction, MRCP would provide additional characterization. Electronically signed by: Shane Abad 09/19/2020 10:59 PM CDT Due to temporary technical issues with the PACS/Fluency reporting system, reports are being signed by the in house radiologist without review as a courtesy to ensure prompt reporting. The interpreting r adiologist is fully responsible for the content of the report.
== END 2020-09-19 23:35 | disposition home or self-care (01) ==
LOC: ER 19:23
DX: R10.9 Unspecified abdominal pain (principal); R19.7 Diarrhea, unspecified; R11.2 Nausea with vomiting, unspecified; Z87.891 Personal history of nicotine dependence
CPT/HCPCS: 36415; 74177; 80048; 80076; 81003; 81025; 83690; 85025; 96361; 96374; 96375; 99284; J1170; J2405; J7030; Q9967

== ENCOUNTER 2020-11-09 17:54 | Emergency (ER) | payer OTHER ==
--- OUTSIDE RECORDS SUMMARY | 2020-11-09 17:59 | XMS REPORT | Continuity of Care Document ---
:1985 Author Organization [facility] t Address [address] [place] [address] Care Team Providers Name Role Phone Vane [...] Date Clinician No Known DA Active U 2020-0 [facility]22 [facility] [place] CODEINE DA Active U 2006-0 [facility] 3[facility]14 [facility] [place] No Known DA Active U 2007-0 [facility] Contrast 3-14 [facility] [place] No Known DA Active U 2007-0 [facility] Food 3-14 [facility] [place] No Known DA Active U 2007-0 [facility] Other 3-14 [facility] [place] Medications This patient has no known medications. Procedures This patient has no known procedures. Encounters Start End Encounter Admission Attending Care Care Encounter Source Date/Time Date/Time Type Type Clinicians Facility Department ID 2020-02-04 2020-02-04 Letter ALYSA Cifuentes [id number] 00:00:00 00:00:00 (Out) Yesi CARSON [id number] [facility] [id number] 2020-02-01 2020-02-01 Laboratory Lab, [facility] [id number] 15:55:19 16:15:19 Only [facility]am [facility] 350.1.13.10 [place] 4.2.7.2.686 Professio [id number] nal [address] Results Test [...] CUT OFF: 25 ng/mL PHENCU) COMPREHENSIVE METABOLIC [id number] 16:55:00 Test Item Value Reference Range Interpretation [...] units/L 46-116 N code = ALKP) URIC [id number] 16:55:00 Test Item Value Reference Range Interpretation Comments URIC ACID (test code = URIC) 6.2 mg/dL 2.6-6.0 H LACTIC DEHYDROGENASE(LDH)2019-11-16 16:55:00 Test Item Value Reference Range Interpretation Comments LACTIC DEHYDROGENASE(LDH) (test 160 units/L 81-234 N code = LDH) UA RFLX MICR CULT IF [id number] 16:41:00 Test Item Value Reference Range Interpretation [...] SEEN Indication for culture: Suprapubic PainCBC W/AUTO [id number] 16:35:00 Test Item Value Reference Range Interpretation [...] NORMAL code = PLTMR) Coronavirus 2019 nCoV [id number] 11:09:00 Test Item Value Reference Range Interpretation Comments Coronavirus 2019 nCoV Negative Negative RESUL TS CALLED TO Bedside (test code = Adesuyi ,AREAD BACK & [id number]) CONFIRMED? yes BY FSilvanaLAB.MAF1 02/26 1109 This [...] PERFORMED UNDER AN EMERGENCY USE AUTHORIZATION F [facility] COMPREHENSIVE METABOLIC [id number] 07:48:00 Test Item Value Reference Range Interpretation [...] 81 units/L 46-116 N code = ALKP) [id number] 07:48:00 Test Item Value Reference Range Interpretation Comments MAGNESIUM (test code = MAG) 2.7 mg/dL 1.8-2.4 H CBC W/AUTO [id number] 07:08:00 Test Item Value Reference Range Interpretation [...] NORMAL NORMAL code = PLTMR) B-TYPE NATRIURETIC [id number] 00:38:00 Test Item Value Reference Range Interpretation Comments B-TYPE NATRIURETIC PEPTIDE (test 542.13 pg/mL 0-100 H code = BNP) Comments to Soda Flaker: Clean CatchSpecimen Comment: Clean Catch- CT HEAD/BRAIN W/O [id number] 00:31:00 Patient Name: OSBALDO MCACNN Unit No: [id number] EXAMS: CPT CODE: [id number] CT HEAD/BRAIN W/O CONT 43074 CT HEAD WITHOUT CONTRAST DATED 10/16/2019. INDICATION: [...] and signed by: Jaiden Durham MD [facility] NAME: OSBALDO MCCANN Radiology Department PHYS: Gian Kangleighton [address] : 1985 AGE: 33 SEX: F [place], [place] [address] LOC: DAVID PHONE #: [phone] EXAM DATE: STATUS: AMADOU ER FAX #: [phone] RAD NO: Page 1 Signed Report 1 Patient Name: OSBALDO MCCANN Unit No: [id number] EXAMS: CPT CODE: [id number] CT HEAD/BRAIN W/O CONT 08852 <Continued> CC: Cecilio Hoffman Technologist: ROB RAO, CT, RT CTDI: 60.16 DLP: 1012.10 Trnscrbd D/ (003) Bhavana [facility] NAME: OSBALDO MCCANN Radiology Department PHYS: Gian Kang [address] : 1985 AGE: 33 SEX: F [place] [address] LOC: Laurence.ERS PHONE #: [phone] EXAM DATE: 10/15/2019 STATUS: REG ER FAX #: [phone] RAD NO: Page 2 Signed Report 1 Patient Name: OSBALDO MCCANN Unit No: [id number] EXAMS: CPT CODE: [id number] CT HEAD/BRAIN W/O CONT 08368 <Continued> Orig Print D/T: S: 10/16/2019(0034) [facility] NAME: SIOBHANOSBALDO Radiology Department PHYS: Gian Kang [address] : 1985 AGE: 33 SEX: F [place] [address] LOC: Laurence.ERS PHONE #: [phone] EXAM DATE: 10/15/2019 STATUS: REG ER FAX #: [phone] RAD NO: Page 3 Signed Report 1UR PROTEIN/CREATININE [id number] 00:23:00 Test Item Value Reference Range Interpretation Comments UR PROTEIN RANDOM (test code = 14.0 mg/dL PROTU) UR CREATININE RANDOM (test 74.0 mg/dL code = CREATU) PROTEIN/CREATININE RATIO (test 180.0 mg/gcrea <200 code = P/CRATIO) - XR CHEST 2 [id number] 00:16:00 Patient Name: OSBALDO MCCANN Unit No: [id number] EXAMS: CPT CODE: [id number] XR CHEST 2 V [address]00 EXAM: CR, XR chest 2 views: 10/15/2019, [...] Orig Print D/T: S: 10/16/2019 (0019) [facility] NAME: OSBALDO MCCANN RadiologyDepartment PHYS: Gian Mcguire [address]OB: 1985 AGE: 33 SEX: F [place], [place] [address] LOC:DAVID PHONE #: [phone] EXAM DATE: 10/15/2019 STATUS: REG ER FAX #: [phone] RAD NO: Page 1 Signed ReportDRUGS OF ABUSE [id number] 00:05:00 Test Item Value Reference Range Interpretation [...] BACK & CONFIRME D? Y.BY JEY 10/15/19 9945. DETECTION CUT O FF: 100 ng/mLPrevio usly reported result : POSITIVE Edited by: JEY on 10/16/19:0005OP IAQLU prev. reported as:POSITIVE H . RESULTS CALLED TO .. READ BACK & CONFIRMED? Y. BY [facility] 10/14 7561. UR PHENCYCLIDINE (PCP) NEGATIVE NEGATIVE DETEC TION CUT OFF: (test code = PHENCU) 25 ng/m L Comments to Soda Flaker: Clean CatchSpecimen Comment: Clean CatchDRUGS OF ABUSE [id number] 00:04:00 Test Item Value Reference Range Interpretation [...] = OPIAQLU) .READ BACK & CONFIRMED? Y.BY [facility] 10/14 0535. DETECTION CUT OFF: 100 ng/mL UR PHENCYCLIDINE (PCP) NEGATIVE NEGATIVE DETEC TION CUT OFF: (test code = PHENCU) 25 ng/m L Comments to Soda Flaker: Clean CatchSpecimen Comment: Clean CatchCOMPREHENSIVE METABOLIC [id number] 23:58:00 Test Item Value Reference Range Interpretation [...] 46-116 N code = ALKP) Comments to Soda Flaker: Clean CatchSpecimen Comment: Clean CatchCREATINE KINASE (CK)2019-10-15 23:58:00 Test Item Value Reference Range Interpretation Comments CREATINE KINASE (CK) (test code = 81 Units/L 26-192 N CK) Comments to Soda Flaker: Clean CatchSpecimen Comment: Clean CatchLIPASE 2019-10-15 23:58:00 Test Item Value Reference Range Interpretation Comments LIPASE (test code = LIP) 48 units/L 73-393 L Comments to Soda Flaker: Clean CatchSpecimen Comment: Clean CatchMAGNESIUM 2019-10-15 23:58:00 Test Item Value Reference Range Interpretation Comments MAGNESIUM (test code = MAG) 1.7 mg/dL 1.8-2.4 L Comments to Soda Flaker: Clean CatchSpecimen Comment: Clean CatchTHYROID STIMULATING [id number] 23:58:00 Test Item Value Reference Range Interpretation Comments THYROID STIMULATING 0.77 0.36-3.74 N Test Per formed in HORMONE (test code = MicroIn ternational Units/mL TSH) Comments to Soda Flaker: Clean CatchSpecimen Comment: Clean CatchTROPONIN-I 2019-10-15 23:58:00 Test Item Value Reference Range Interpretation Comments TROPONIN-I (test code = TROPI) 0.043 ng/mL <0.056 N Comments to Soda Flaker: Clean CatchSpecimen Comment: Clean CatchPROTHROMBIN [id number] 23:41:00 Test Item Value Reference Range Interpretation Comments PROTHROMBIN TIME PATIENT (test code 10.8 secs 10.4-12.4 N = PTP) Comments to Soda Flaker: Clean CatchSpecimen Comment: Clean CatchIS PATIENT ON ANTICOAGULANTS ? NINTERNATIONAL NORMAL [id number] 23:41:00 Test Item Value Reference Range Interpretation [...] emboli sm. 3.0 - 3.5 Comments to Soda Flaker: Clean CatchSpecimen Comment: Clean CatchIS PATIENT ON ANTICOAGULANTS ? NTHROMBOPLASTIN TIME [id number] 23:41:00 Test Item Value Reference Range Interpretation Comments THROMBOPLASTIN TIME PARTIAL (test 30.1 secs 22-38 N code = PTT) Comments to Soda Flaker: Clean CatchSpecimen Comment: Clean CatchIS PATIENT ON ANTICOAGULANTS ? ND-DIMER [id number] 23:41:00 Test Item Value Reference Range Interpretation [...] is 98% for rulingout DVT. Comments to Soda Flaker: Clean CatchSpecimen Comment: Clean CatchIS PATIENT ON ANTICOAGULANTS ? NUA RFLX MICR CULT IF [id number] 23:36:00 Test Item Value Reference Range Interpretation [...] = MUCU) RARE NONE SEEN Comments to Soda Flaker: Clean CatchSpecimen Comment: Clean CatchIndication for culture: Dysuria/FrequencyCBC W/AUTO [id number] 23:29:00 Test Item Value Reference Range Interpretation [...] NORMAL NORMAL code = PLTMR) Comments to Soda Flaker: Clean CatchSpecimen Comment: Clean CatchFALLOPIAN TUBE,[id number] 13:52:00 RUN DATE: 10/08/19 [facility] PAGE 1 RUN TIME: 1734 Specimen Inquiry RUN USER: INTERFACE PATIENT: OSBALDO MCCANN LOC: DonovanJUAN U #: [id number] AGE/SX: 33/F ROOM: 2053 RE10/06/19REG DR: Cecilio Hoffman MD : [birth year] BED: A DIS: STATUS: ADM IN TLOC: SPEC #: [id number] RECD: 10/07/19-1009 STATUS: BRENDA HERNANDEZ #: [id number] GABRIELLA: 10/07/19- SUBM DR: Cecilio Hoffman MD ENTERED: 10/07/19-1011 SP TYPE: FALLBX OTHR DR: ORDERED: LEVEL IV CODES: [id number] - FALLOPIAN TUBE PROCEDURES: LEVEL IV (Incomplete) TISSUES: FALLOPIAN TUBE, NOS - RIGHT AND LEFT FALLOPIAN TUBE CLINICAL HISTORY Not provided (wpd) FINAL DIAGNOSIS Right fallopian tube, tubal ligation: - fallopian tube withcomplete surgical transection, no pathologic alteration Left fallopian tube, tubal ligation: - fallopian tube with complete surgical transection, no pathologic alteration CPT code(s): 15357 x2 pkg/kr GROSS DESCRIPTION ANATOMIC SOURCE OF TISSUE (per Requisition): Rightand left fallopian tubes (received in 2 containers) Each specimen is labeled with the patient's name and medical record number. Specimen #1 is designated "right fallopian tube" and consistsof a 5.5 cm in length and 0.6 cm in diameter fimbriated fallopian tube. The serosa is pink-purpleand hyperemic. The lumen is pinpoint. Senior Mechanical Engineer sections are submitted as A1. Specimen #2 is designated "left fallopian tube" and consists of a 4.5 cm in length and 0.6 cm in diameter fimbriated fallopian tube. The serosa is pink-purple and hyperemic. The lumen is pinpoint. Senior Mechanical Engineer sections are submitted as B1. jovita/wpd 10/07/19 CONTINUED ON NEXT PAGE RUN DATE: 10/08/19 [facility] PAGE 2 RUN TIME: 1734 Specimen Inquiry RUN USER: INTERFACE SPEC #: [id number] PATIENT: OSBALDO MCCANN #[id number] (Continued) MICROSCOPIC DESCRIPTION Specimen #1 - the fallopian tube architecture is intact. The lumen is not dilated. A completely transected segment of fallopian tube is present. Specimen #2 - the fallopian tube architecture is intact. The lumen is not dilated. A completely transected segment of fallopian tube is present. lai Signed Tiny Jurado 10/08/19 1352 END OF REPORT HGB [id number] 05:07:00 Test Item Value Reference Range Interpretation Comments HEMOGLOBIN (test code = HGB) 9.3 g/dL 10.7-13.9 L HEMATOCRIT (test code = HCT) 28.3 % 32.1-42.1 L Coronavirus 2019 nCoV [id number] 16:02:00 Test Item Value Reference Range Interpretation Comments Coronavirus 2019 nCoV Negative Negative RESUL TS CALLED TO Bedside (test code = BERENICE/A PUREAD BACK & [id number]) CONFIRMED? CHAI ManLAB.GF 10/06/19 1602 T his [...] UNDER AN EMERGENCY USE AUTHORIZATION F [facility] FDA AG HEPATITIS B [id number] 07:07:00 Test Item Value Reference Range Interpretation Comments AG HEPATITIS B SURFACE (test code NONREACTIVE NONREACTIVE = HBSAG) AB HEPATITIS C [id number] 07:07:00 Test Item Value Reference Range Interpretation Comments AB HEPATITIS C (test code = NONREACTIVE NONREACTIVE HCVAB) SIGNAL TO CUTOFF (test code = 0.13 <0.80 N CUTOFF) AB [id number] 07:07:00 Test Item Value Reference Range Interpretation Comments AB TREPONEMA (test code = TREPAB) NONREACTIVE NONREACTIVE AG HEPATITIS B [id number] 06:50:00 Test Item Value Reference Range Interpretation Comments AG HEPATITIS B SURFACE (test code NONREACTIVE NONREACTIVE = HBSAG) AB HEPATITIS C [id number] 06:50:00 Test Item Value Reference Range Interpretation Comments AB HEPATITIS C (test code = HCVAB) NONREACTIVE SIGNAL TO CUTOFF (test code = CUTOFF) <0.80 AB [id number] 06:50:00 Test Item Value Reference Range Interpretation Comments AB TREPONEMA (test code = TREPAB) NONREACTIVE NONREACTIVE CBC W/AUTO [id number] 02:32:00 Test Item Value Reference Range Interpretation [...] (test NORMAL NORMAL code = PLTMR) URINALYSIS [id number] 23:53:00 Test Item Value Reference Range Interpretation [...] = MUCU) 4+ NONE SEEN Comments to Soda Flaker: CORETTA RICHARDSON SAMPLE: CLEAN [id number] 14:53:00 Test Item Value Reference Range Interpretation Comments CREATININE (test code = CREAT) 0.9 mg/dL 0.5-1.0 N [id number] 14:53:00 Test Item Value Reference Range Interpretation Comments SGOT/AST (test code = AST) 46 units/L 15-37 H [id number] 14:53:00 Test Item Value Reference Range Interpretation Comments SGPT/ALT (test code = ALT) 39 units/L 12-78 N URINALYSIS [id number] 14:28:00 Test Item Value Reference Range Interpretation [...] RARE NONE SEEN URINE SAMPLE: CLEAN CATCHComment [facility] W/AUTO [id number] 14:24:00 Test Item Value Reference Range Interpretation [...] NORMAL NORMAL code = PLTMR) URINALYSIS W/O [id number] 16:36:00 Test Item Value Reference Range Interpretation Comments UA GLUCOSE DIPSTICK (test code = NEGATIVE NEGATIVE DGLUU) UA KETONE DIPSTICK (test code = TRACE NEGATIVE KETU) UA PROTEIN DIPSTICK (test code = NEGATIVE NEGATIVE PROU) IS NURSE PERFORMING TEST? SHAMEKA PROTEIN/CREATININE [id number] 16:36:00 Test Item Value Reference Range Interpretation Comments UR PROTEIN RANDOM (test code = 37.6 mg/dL PROTU) UR CREATININE RANDOM (test 290.4 mg/dL code = CREATU) PROTEIN/CREATININE RATIO (test 120.0 mg/gcrea <200 code = P/CRATIO) IS NURSE PERFORMING TEST? [id number] 16:16:00 Test Item Value Reference Range Interpretation Comments CREATININE (test code = CREAT) 0.7 mg/dL 0.5-1.0 N SGOT/[id number] 16:16:00 Test Item Value Reference Range Interpretation Comments SGOT/AST (test code = AST) 15 units/L 15-37 N [id number] 16:16:00 Test Item Value Reference Range Interpretation Comments SGPT/ALT (test code = ALT) 16 units/L 12-78 N CBC W/AUTO [id number] 15:58:00 Test Item Value Reference Range Interpretation [...] NORMAL NORMAL code = PLTMR) URINALYSIS W/O [id number] 15:43:00 Test Item Value Reference Range Interpretation Comments UA GLUCOSE DIPSTICK (test code = NEGATIVE NEGATIVE DGLUU) UA KETONE DIPSTICK (test code = TRACE NEGATIVE KETU) UA PROTEIN DIPSTICK (test code = NEGATIVE NEGATIVE PROU) IS NURSE PERFORMING TEST? SHAMEKA PROTEIN/CREATININE [id number] 15:43:00 Test Item Value Reference Range Interpretation Comments UR PROTEIN RANDOM (test code = mg/dL PROTU) UR CREATININE RANDOM (test code = mg/dL CREATU) PROTEIN/CREATININE RATIO (test code mg/gcrea <200 = P/CRATIO) IS NURSE PERFORMING TEST? SHAMEKA PROTEIN [id number] 13:08:00 Test Item Value Reference Range Interpretation Comments UR PROTEIN RANDOM 21.8 mg/dL (test code = PROTU) UR PROTEIN 24HR 305 mg/24HR 20-150 HH RESULTS CALL ED TO (test code = DONNA NUGENT AD BACK EMGM89C) & CONFIRMED? MAURICIO ClearyBY F.LAB.ELB1 08/07 1308.Units for 24 HR Urine Protein h ave changed: New U nits = MG/24HR UR VOLUME (test code 1400 ML = VOL) COMPREHENSIVE METABOLIC [id number] 15:51:00 Test Item Value Reference Range Interpretation [...] 46-116 N code = ALKP) CBC W/AUTO [id number] 15:25:00 Test Item Value Reference Range Interpretation [...] NORMAL code = PLTMR) UR CREATININE CLEARANCE [id number] 16:27:00 Test Item Value Reference Range Interpretation Comments CREATININE CLEARANCE RESULT (test 180 ml/min 70-120 H code = CREATCLR) CREATININE (test code = CREAT) 0.6 mg/dL 0.5-1.0 N UR CREATININE RANDOM (test code = 120.2 mg/dL CREATU) UR VOLUME (test code = VOL) 1300 ML UR PROTEIN [id number] 16:27:00 Test Item Value Reference Range Interpretation Comments UR PROTEIN RANDOM 23.5 mg/dL (test code = PROTU) UR PROTEIN 24HR (test 306 mg/24HR 20-150 HH RESULT S CALLED TO code = WCCF68H) APRIL.READ BACK & CONFIRMED? YES. BY F.LAB.ELB1 12/26 1627.Units for 24 HR Urine Protein h ave changed: New U nits = MG/24HR AMNISURE (ROM) [id number] 15:13:00 Test Item Value Reference Range Interpretation Comments AMNISURE (ROM) TEST (test code = NON-RUPTURED NON-RUPTURE AMNI) : *Amnisure QC OK? YES- US FET BIO PH CO W/O [id number] 10:31:00 Patient Name: OSBALDO MCCANN Unit No: [id number] EXAMS: CPT CODE: [id number] US FET BIO PH CO W/O NST [address] [facility] [address], [place] [address] OBSTETRICAL BIOPHYSICAL ULTRASOUND REPORT Pat. Name: OSBALDO MCCANN Pat. No: [id number] Study Date: 08/14/2019 9:40am , Age: 05 1985, 33 Pregnancies: 6, Para 1132 LMP: Unknown GA by 1st: 28w6d GA by US: 28w5d GA Selected: 28w6d (From First S) BETSY: 10/31/2019 Referring MD: Cecilio Hoffman Sole Tier: Shante Lazo RDMS CPT4: USBPPWONST Hist/Ind: HTN SCAN 3 MEASUREMENTS AGE GROWTH EVALUATION Measurement GA Range Srce %for GA Ratios ----- ---- ------- BPD 7.2 cm 29w1d (20a9w-80m4v) Hadl BPD 57% FL/BPD 0.75 (0.71 - 0.87) HC 27.6 cm 29w6d (45m4f-37q8g) Hadl HC 71% FL/AC 0.21 (0.20 - 0.24) APD 8.2 cm APD HC/AC 1.10 (0.99 - 1.18) TAD 7.7 cm TAD CI 0.73 (0.70 - 0.86) A C 25.0 cm 29w1d (32c0n-37s0e) Hadl AC 56% FL 5.4 cm 28w0d (35u3f-51n5s) Hadl FL 33% HL 5.0 cm 29w2d (12u9q-57l8z) Gian HL 56% GA for sonogram 28w5d (32n0j-76r5e) Weight Estimate: based on (BPD,HC,AC,FL) Hadlock Weight: 1320 gm (9489-4995) Hadlo : 2lbs, 14oz Normal: 1287 gm [...] observed tone noted breathing movements observed [facility] NAME: OSBALDO MCCANN Radiology Department PHYS: Cecilio Cavanaugh MD [address] : 1985 AGE: 33 SEX: F [place] [address] LOC: Gary A PHONE #: [phone] EXAM DATE: 08/14/2019STATUS: ADM IN FAX #: [phone] RAD NO: Page 1 Signed Report (CONTINUED) Patient Name: OSBALDO MCCANN Unit No: [id number] EXAMS: CPT CODE: [id number] US FET BIO PH CO W/O NST 79329 <Continued> Placental location: Anterior Placental maturity : [...] Shante Lazo RDMS Probe: Trnscrbd D/ (1031) t.NMG Orig Print D/T: S: 08/16/2019 (1155) [facility] NAME: OSBALDO MCCANN Radiology Department PHYS: Cecilio Cavanaugh MD [address] : 1985 AGE: 33 SEX: [place] [address] LOC: Gary A PHONE #: [phone] EXAM DATE: 08/14/2019 STATUS: ADM IN FAX #: [phone] RAD NO: Page 2 Signed Report Patient Name: OSBALDO MCCANN Unit No: [id number] EXAMS: CPT CODE: [id number] US FET BIO PH CO W/O NST 29550 <Continued> [facility] NAME: OSBALDO MCCANN RadiologyDepartment PHYS: Cecilio Cavanaugh MD [address]OB: 1985 AGE: 33 SEX: F [place] [id number] LOC:Dhara6 A PHONE #: [phone] EXAM DATE: 08/14/2019 STATUS: ADM IN FAX #: [phone] RAD NO: Page 3 Signed Report- US FLW [id number] 10:31:00 Patient Name: OSBALDO MCCANN Unit No: [id number] EXAMS: CPT CODE: [id number] [place] [address] [facility] [address] [place], [place] [address] OBSTETRICAL BIOPHYSICAL ULTRASOUND REPORT Pat. Name: OSBALDO MCCANN Pat. No: [id number] Study Date: 08/14/2019 9:40am , Age: 05 1985, 33 Pregnancies: 6, Para 1132 LMP: Unknown GA by 1st: 28w6d GA by US: 28w5d GA Selected: 28w6d (From First S) BETSY: 10/31/2019 Referring MD: JO PAUL Sole Tier: Shante Lazo RDMS CPT4: USPREGFU Admitting MD: CECILIO HOFFMAN Hist/Ind: HTN SCAN 3 MEASUREMENTS AGE GROWTH EVALUATION Measurement GA Range Srce %for GA Ratios ----- ------- BPD 7.2 cm 29w1d (81b0d-11t2h) Hadl BPD 57% FL/BPD 0.75 (0.71 - 0.87) HC 27.6 cm 29w6d (40j7j-03x9r) Hadl HC 71% FL/AC 0.21 (0.20 - 0.24) APD 8.2 cm APD HC/AC 1.10 (0.99 - 1.18) TAD 7.7 cm TAD CI 0.73 (0.70 - 0.86) AC 25.0 cm 29w1d (43v6s-44y4u) Hadl AC 56% FL 5.4 cm 28w0d (61e2f-95s7k) Hadl FL 33% HL 5.0 cm 29w2d (26w4d- 32w0d) Gian HL 56% GA for sonogram 28w5d (90z5z-69z4a) Weight Estimate: based on (BPD,HC,AC,FL) Hadlock Weight: 1320 gm (6965-1254) Hadlo : 2lbs, 14oz Normal: 1287 gm [...] and limb movements observed tone noted [facility] NAME: OSBALDO MCCANN Radiology Department PHYS: Cecilio Cavanaugh MD [address] : 1985 AGE: 33 SEX: F [place] [address] LOC: Donovan3036 A PHONE #: [phone] EXAM DATE: 08/14/2019 STATUS: ADM IN FAX #: [phone] RAD NO: Page 1 Signed Report (CONTINUED) Patient Name: OSBALDO MCCANN Unit No: [id number] EXAMS: CPT CODE: [id number] [place] [address] <Continued> breathing movements observed Placental location: Anterior [...] Shante Lazo RDMS Probe: Trnscrbd D/ (1031) tSHAYNMG Orig Print D/T: S: 08/14/2019 (1031) [facility] NAME: OSBALDO MCCANN Radiology Department PHYS: Cecilio Cavanaugh MD [address] : 1985 AGE: 33 SEX: [id number] LOC: Donovan3036 A PHONE #: [phone] EXAM DATE: 08/14/2019 STATUS: ADM IN FAX #: [phone] RAD NO: Page 2 Signed Report Patient Name: OSBALDO MCCANN Unit No: [id number] EXAMS: CPT CODE: [id number] [place] [address] <Continued> [facility] NAME: OSBALDO MCCANN Radiology Department PHYS: Cecilio Cavanaugh MD [address] : 1985 AGE: 33 SEX: F [place], [place] [address] LOC: Donovan3036 A PHONE #: [phone] EXAM DATE: 08/14/2019 STATUS: ADM IN FAX #: [phone] RAD NO: Page 3 Signed ReportGLUCOSE 2HR 2019-08-14 09:45:00 Test Item Value Reference Range Interpretation Comments GLUCOSE 2HR (test code = GLU2) 127 mg/dL 70-140 N 3HR GTT GLU2 GLU2HR from 306:CF:[id number].GLUCOSE [id number] 09:42:00 Test Item Value Reference Range Interpretation Comments GLUCOSE 3HR (test code = GLU3) 116 mg/dL 65-110 H 3HR GTT GLU3 GLU3HR from 306:CF:[id number].GESTATION SCREEN [id number] 07:21:00 Test Item Value Reference Range Interpretation Comments GESTATION SCREEN GLUCOSE (test code 142 MG/DL <150 = GLU1S) GLU GEST SCRN 1 HR GLU GLU1S from 306:CF:[id number].GLUCOSE [id number] 05:26:00 Test Item Value Reference Range Interpretation Comments GLUCOSE FASTING (test code = GLUF) 93 mg/dL 65-110 N GLU GEST SCRN GLUFAST GLUFAST from 306:CF:[id number].CHEMISTRY 7 [id number] 15:00:00 Test Item Value Reference Range Interpretation [...] = CA) 8.5 mg/dL 8.4-10.2 N LIVER [id number] 15:00:00 Test Item Value Reference Range Interpretation [...] 46-116 N code = ALKP) CBC W/AUTO [id number] 14:35:00 Test Item Value Reference Range Interpretation [...] NORMAL NORMAL code = PLTMR) UR PROTEIN [id number] 13:01:00 Test Item Value Reference Range Interpretation Comments UR PROTEIN RANDOM 14.5 mg/dL (test code = PROTU) UR PROTEIN 24HR (test 189 mg/24HR 20-150 H Units for 24 HR Urine code = YVSC42K) Protein have changed: New Units = MG /24HR UR VOLUME (test code 1300 ML = VOL) - US PREG AFTER [id number] 09:35:00 Patient Name: OSBALDO MCCANN Unit No: [id number] EXAMS: CPT CODE: [id number] US PREG AFTER TRI [id number] [facility] [address], [place] [address] OBSTETRICAL ULTRASOUND REPORT Pat. Name: OSBALDO MCCANN Pat. No: [id number] Study Date: 07/29/2019 9:25pm , Age: 05 1985, 33 Pregnancies: 6, Para 1132 LMP: Unknown GA by 1st: 26w4d GA by US: 26w1d GA Selected: 26w4d (From First S) BETSY: 10/31/2019 Referring MD: JO PAUL Sole Tier: Julianne Portillo RDMS CPT4: [id number] Admitting MD: CECILIO HOFFMAN Hist/Ind: HIGH BP SCAN 2 MEASUREMENTS AGE GROWTH EVALUATION Measurement GA Range Srce %for GA Ratios ----- ---- ------- BPD 6.5 cm 26w3d (84s1n-96t3n) Hadl BPD 46% FL/BPD 0.75 (0.71 - 0.87) HC 24.2 cm 26w0d (24c6f-81d0z) Hadl HC 39% FL/AC 0.21 (0.20 - 0.24) APD 7.3 cm APD HC/AC 1.05 (1.00 - 1.19) TAD 7.3 cm TADCI 0.80 (0.70 - 0.86) AC 22.9 cm 27w1d (68p5m-60p0y) Hadl AC 63% FL 4.9 cm 26w1d (83l6v-79t0v) Hadl FL 40% HL 4.5 cm 26w5d (93e1d-63v2a) Gian HL 53% GA for sonogram 26w1d (31u4k-83x6q) Weight Estimate: based on (BPD,HC,AC,FL) [place] Weight: [...] age. growth: Consistent with normal growth [facility] NAME: SIOBHANOSBALDO Radiology Department PHYS: Cecilio Cavanaugh MD [address] : 1985 AGE: 33 SEX: F [place], [place] [address] LOC: Donovan3048 A PHONE #: [phone] EXAM DATE: 07/29/2019 STATUS: ADM IN FAX #: [phone] RAD NO: Page 1 Signed Report (CONTINUED) Patient Name: OSBALDO MCCANN Unit No: [id number] EXAMS: CPT CODE: [id number] US PREG AFTER TRI 65505 <Continued> motion and organs seen: heart motion [...] Orig Print D/T: S: 07/30/2019 (0935) [facility] NAME: OSBALDO MCCANN Radiology Department PHYS: Cecilio Cavanaugh MD [address] : 1985 AGE: 33 SEX: F [place] [address] LOC: F.3048 A PHONE #: [phone] EXAM DATE: 07/29/2019 STATUS: ADM IN FAX #: [phone] RAD NO: Page 2 Signed Report Patient Name: OSBALDO MCCANN Unit No: [id number] EXAMS: CPT CODE: [id number] US PREG AFTER 1ST TRI 88255 <Continued> [facility] NAME: OSBALDO MCCANN Radiology Department PHYS: Cecilio Cavanaugh MD [address] : 1985 AGE: 33 SEX: F [place] [address] LOC: F.3048 A PHONE #: [phone] EXAM DATE: 07/29/2019 STATUS: ADM IN FAX #: [phone] RAD NO: Page 3 Signed ReportGESTATION SCREEN [id number] 07:59:00 Test Item Value Reference Range Interpretation Comments GESTATION SCREEN GLUCOSE (test code 135 MG/DL <150 = GLU1S) GLU GEST SCRN 1 HR GLU GLU1S from 220:[id number] [id number] 05:55:00 Test Item Value Reference Range Interpretation Comments GLUCOSE FASTING (test code = GLUF) 96 mg/dL 65-110 N GLU GEST SCRN GLUFAST GLUFAST from 220:[id number] 13:37:00 Test Item Value Reference Range Interpretation Comments CREATININE (test code = CREAT) 0.7 mg/dL 0.5-1.0 N [id number] 13:37:00 Test Item Value Reference Range Interpretation Comments SGOT/AST (test code = AST) 12 units/L 15-37 L [id number] 13:37:00 Test Item Value Reference Range Interpretation Comments SGPT/ALT (test code = ALT) 15 units/L 12-78 N ALKALINE PHOSPHATASE [id number] 13:37:00 Test Item Value Reference Range Interpretation Comments ALKALINE PHOSPHATASE TOTAL (test 50 units/L 46-116 N code = ALKP) [id number] 13:37:00 Test Item Value Reference Range Interpretation Comments AMYLASE (test code = RAISA) 30 units/L 30-110 N [id number] 13:37:00 Test Item Value Reference Range Interpretation Comments LIPASE (test code = LIP) 60 units/L 73-393 L CBC W/AUTO [id number] 13:19:00 Test Item Value Reference Range Interpretation [...] NORMAL NORMAL code = PLTMR) CHEMISTRY 7 [id number] 23:01:00 Test Item Value Reference Range Interpretation [...] = CA) 8.6 mg/dL 8.4-10.2 N URIC [id number] 23:01:00 Test Item Value Reference Range Interpretation Comments URIC ACID (test code = URIC) 3.7 mg/dL 2.6-6.0 N [id number]/[id number] 23:01:00 Test Item Value Reference Range Interpretation Comments SGOT/AST (test code = AST) 22 units/L 15-37 N [id number] 23:01:00 Test Item Value Reference Range Interpretation Comments SGPT/ALT (test code = ALT) 26 units/L 12-78 N CHEMISTRY 7 [id number] 22:51:00 Test Item Value Reference Range Interpretation [...] = CA) 8.6 mg/dL 8.4-10.2 N URIC [id number] 22:51:00 Test Item Value Reference Range Interpretation Comments URIC ACID (test code = URIC) 3.7 mg/dL 2.6-6.0 N URINALYSIS [id number] 22:35:00 Test Item Value Reference Range Interpretation [...] = MUCU) RARE NONE SEEN Comments to Soda Flaker: CORETTA MCCODR SAMPLE: CLEAN CATCHCBC W/AUTO DIFF 2019-06-30 22:30:00 [...] code = PLTMR) - US PREG UT [id number] 20:39:00 Patient Name: OSBALDO MCCANN Unit No: [id number] EXAMS: CPT CODE: [id number] US PREG UT TRANSVAGINAL 34814 Limited obstetrical ultrasound with transvaginal imaging of [...] Cecilio Hoffman Technologist: Shante Lazo RDMS Probe: [id number] Trnscrbd D/ (2038) t.SDR.DMM Orig Print D/T: S: 06/26/2019 (2041) [facility] NAME: OSBALDO MCCANNBETH Radiology Department PHYS: Cecilio Cavanaugh MD [address] : 1985 AGE: 33 SEX: [place] [address] LOC: DonovanROMAN PHONE #: [phone] EXAM DATE: 06/26/2019 STATUS: REG ER FAX #: [phone] RAD NO: Page 1 Signed Report Patient Name: OSBALDO MCCANN Unit No: [id number] EXAMS: CPT CODE: [id number] US PREG UT TRANSVAGINAL 11149 <Continued> [facility] NAME: OSBALDO MCCANN Radiology Department PHYS: Cecilio Cavanaugh MD [address] : 1985 AGE: 33 SEX: F [place] [address] LOC: DonovanROMAN PHONE #: [phone] EXAM DATE: 06/26/2019 STATUS: REG ER FAX #: [phone] RAD NO: Page 2 Signed Report- US FLW [id number] 20:39:00 Patient Name: OSBALDO MCCANN Unit No: [id number] EXAMS: CPT [place]: [id number] [place] [address] Limited obstetrical ultrasound with transvaginal imaging of [...] Jaiden Durham MD CC: Jo Paul MD; [facility] Technologist: Shante Lazo RDMS Probe: Trnscrbd D/ (2038) t.SDR.DMM Orig Print D/T: S: 06/26/2019 (2041) [facility] NAME: OSBALDO MCCANN Radiology Department PHYS: HARSHA. Jo Paul MD [address] : 1985 AGE: 33 SEX: F [place] [address] LOC: [place].ROMAN PHONE #: [phone] EXAM DATE: 06/26/2019 STATUS: REG ER FAX #: [phone] RAD NO: Page 1 Signed Report Patient Name: OSBALDO MCCANN JULIANNE Unit No: [id number] EXAMS: CPT CODE: [id number] [place] [address] <Continued> [facility] NAME: OSBALDO MCCANN Radiology Department PHYS: HARSHA. Jo Paul MD [address] : 1985 AGE: 33 SEX: F [place] [address] LOC: [place].ROMAN PHONE #: [phone] EXAM DATE: 06/26/2019 STATUS: REG ER FAX #: [phone] RAD NO: Page 2 Signed ReportCOMPREHENSIVE METABOLIC [...] = ALKP) UA RFLX MICR CULT IF [id number] 19:55:00 Test Item Value Reference Range Interpretation [...] RARE-FEW Indication for culture: Suprapubic PainUR PROTEIN/CREATININE [id number] 19:55:00 Test Item Value Reference Range Interpretation [...] RARE-FEW Indication for culture: Suprapubic PainUR PROTEIN/CREATININE [id number] 19:51:00 Test Item Value Reference Range Interpretation Comments UR PROTEIN RANDOM (test code = mg/dL PROTU) UR CREATININE RANDOM (test code = mg/dL CREATU) PROTEIN/CREATININE RATIO (test code mg/gcrea <200 = P/CRATIO) Indication for culture: Suprapubic PainCBC W/AUTO [id number] 19:47:00 Test Item Value Reference Range Interpretation [...]
[2020-11-09 19:24] LABS: Urine Blood Negative (Negative); Urine Glucose Negative (Negative); Urine Protein Negative (Negative)
[2020-11-09 20:02] LABS: Absolute Lymphocytes (CBC) 2.3 K/uL (0.7-4.9); Basophils % 1.3 % (0-1.3); Hematocrit 36.8 % (36.0-45.0); Lymphocytes % 29.2 % (15.3-44.8); MPV 8.5 fL (7.6-11.3); RBC Red Blood Cell Count 4.31 M/uL (3.86-4.86)
[2020-11-09] MEDS ORDERED: DICYCLOMINE HCL 10 MG CAP ONE (20:13)
[2020-11-09] MEDS ORDERED: ONDANSETRON 4 MG/2 ML VIAL ONE (20:13)
[2020-11-09] MEDS ORDERED: FAMOTIDINE 20 MG/2 ML VIAL IV ONE (20:13)
[2020-11-09] MEDS ORDERED: NA CHLORIDE 0.9% 1,000 ML ONE (20:14)
[2020-11-09 20:44] LABS: ALT/SGPT 20 U/L (12-78); Albumin 3.9 g/dL (3.4-5.0); Alkaline Phosphatase 58 U/L (45-117); BUN Blood Urea Nitrogen 11 mg/dL (7-18); Bicarbonate 23 mmol/L (21-32); Bilirubin Direct < 0.1 mg/dL (0-0.2); Bilirubin Total 0.4 mg/dL (0.2-1.0); Glucose Level 91 mg/dL (74-106); Lipase 54 U/L (73-393); Sodium Level 140 mmol/L (136-145)
[2020-11-09 20:45] LABS: AST/SGOT 17 U/L (15-37); Potassium 3.6 mmol/L (3.5-5.1)
[2020-11-09] MEDS ORDERED: MEPERIDINE HCL 25 MG/ML SYR ONE (21:01)
[2020-11-09] MEDS ORDERED: PROMETHAZINE INJ 25 MG/ML AMP ONE (21:28)
--- NOTE | 2020-11-09 23:22 | ER ---
Nurse's Notes [facility] Name: Felicia Cheung Age: 35 yrs Sex: Female : 1985 Arrival Date: 11/09/2020 Time: 17:56 Bed 28 Private MD: Diagnosis: Diarrhea, unspecified;Unspecified abdominal pain;Nausea and vomiting Presentation: 11/09 18:20 Chief complaint: Patient states: Umbilical area pain that radiates out, diarrhea x 4 jl7 days, constant. Unable to get in with GI at this time. Coronavirus screen: Client denies travel out of the [place] in the last 14 days. At this time, the client does not indicate any symptoms associated with coronavirus-19. Ebola Screen: No symptoms or risks identified at this time. Initial Sepsis Screen: Does the patient meet any 2 criteria? No. Patient's initial sepsis screen is negative. Does the patient have a suspected source of infection? No. Patient's initial sepsis screen is negative. Risk Assessment: Do you want to hurt yourself or someone else? Patient reports no desire to harm self or others. Onset of symptoms was November 05, 2020. Care prior to arrival: None. 18:20 Method Of Arrival: Ambulatory 7 18:20 Acuity: COMPA 3 jl7 Triage Assessment: 23:46 General: Appears in no apparent distress. Behavior is calm, cooperative. iw 23:46 General: Appears in no apparent distress. comfortable. 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 - Social history:: Smoking status: Patient denies any tobacco usage or history of. Screenin:46 Abuse screen: Denies threats or abuse. Denies injuries from another. Nutritional iw screening: No deficits noted. Tuberculosis screening: No symptoms or risk factors identified. Fall Risk Assessment: 19:15 General: Appears. iw 19:15 Pain: Complains of pain in abdomen. Neuro: Level of Consciousness is awake, alert, iw obeys commands, Oriented to person, place, time, situation, Moves all extremities. Full function. Cardiovascular: Patient's skin is warm and dry. Respiratory: Respiratory effort is even, unlabored, Respiratory pattern is regular, symmetrical. GI: Bowel sounds present X 4 quads. Abd is soft X 4 quads. GI: Reports upper abdominal pain, diarrhea, nausea. Derm: Skin is intact, is healthy with good turgor. Musculoskeletal: Range of motion: intact in all extremities. Vital Signs: 18:20 BP 135 / 86; Pulse 93; Resp 17; Temp 98.4; Pulse Ox 100% ; Weight 108.86 kg; Pain 9/10; jl7 ED Course: 17:56 Patient arrived in ED. as 18:24 Triage completed. jl7 18:25 Arm band placed on right wrist. jl7 19:12 See Oden PA is PHCP. cp 19:12 Juan Carlos Maria MD is Attending Physician. cp 19:15 Patient has correct armband on for positive identification. iw 19:35 Inserted saline lock: 22 gauge in left forearm, using aseptic technique. Blood ds4 collected. 19:50 Lynnette Fletcher, RN is Primary Nurse. iw 22:02 CT Abd/Pelvis - PO and IV Contrast In Process Unspecified. EDMS 23:21 Greta Zheng MD is Referral Physician. cp 23:46 No provider procedures requiring assistance completed. IV discontinued, intact, iw bleeding controlled, No redness/swelling at site. Pressure dressing applied. Administered Medications: 20:02 Drug: Pepcid (famotidine) 20 mg Route: IVP; Site: left antecubital; iw 20:03 Drug: NS 0.9% 1000 ml Route: IV; Rate: 1 bolus; Site: left antecubital; iw 20:03 Drug: Zofran (Ondansetron) 4 mg Route: IVP; Site: left antecubital; iw 20:05 Drug: Bentyl (dicyclomine) 20 mg Route: PO; iw 20:50 Drug: Demerol (meperidine) 25 mg Route: IVP; Site: left forearm; iw 20:53 Not Given (Duplicate Order): Bentyl (dicyclomine) 20 mg IM once iw 21:12 Drug: Phenergan (promethazine) 12.5 mg Route: IVP; Site: left forearm; iw Outcome: 23:21 Discharge ordered by . cp 23:46 Discharged to home ambulatory, with family. iw 23:46 Condition: good 23:46 Discharge instructions given to patient, Instructed on discharge instructions, follow up and referral plans. medication usage, Demonstrated understanding of instructions, follow-up care, medications, Prescriptions given X 3. 23:47 Patient left the ED. iw Signatures: Dispatcher [employer] EDBasilia Mejias Irene, RN RN Mauricio Morales ds4 See Oden PA PA cp Leal, Jahala, RN RN jl7 Corrections: (The following items were deleted from the chart) 19:02 18:20 BP 135 / 96; Pulse 93bpm; Resp 17bpm; Pulse Ox 100%; Temp 98.4F; 108.86 kg; Pain jl7 02/16; jl7 11/10 20:21 20:18 General: Appears iw iw
--- NOTE | 2020-11-09 23:22 | EDPHYS ---
Physician Documentation [facility] Name: Felicia Cheung Age: 35 yrs Sex: Female : 1985 Arrival Date: 11/09/2020 Time: 17:56 Bed 28 Private MD: ED Physician Juan Carlos Maria HPI: 11/09 19:30 This 35 yrs old Female presents to ER via Ambulatory with complaints of cp Abdominal Pain, Diarrhea, Vomiting. 19:30 The patient presents with abdominal pain mid abdomen. cp 19:30 Onset: The symptoms/episode began/occurred 1 month(s) ago, intermittent, patient has cp been seen in this ED previously and instructed to f/u with GI which patient has not at this time. Patient reports diarrhea for past 4 days. Denies blood in stool, denies weight loss. No active vomiting. 19:30 Severity of pain: in the emergency department the pain is unchanged despite home cp interventions. 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 - Social history:: Smoking status: Patient denies any tobacco usage or history of. ROS: 19:35 Constitutional: Negative for body aches, chills, fever, poor PO intake. cp 19:35 Eyes: Negative for injury, pain, redness, and discharge. cp 19:35 ENT: Negative for ear pain, sore throat, difficulty swallowing, difficulty handling secretions. 19:35 Cardiovascular: Negative for chest pain, palpitations. 19:35 Respiratory: Negative for cough, shortness of breath, wheezing. 19:35 Abdomen/GI: Positive for abdominal pain, nausea, diarrhea, Negative for constipation, hematemesis, black/tarry stool, rectal bleeding, active vomiting. 19:35 Neuro: Negative for altered mental status, dizziness, headache, weakness. 19:35 All other systems are negative. Exam: 19:40 Constitutional: The patient appears in no acute distress, alert, awake, non-toxic, well cp developed, well nourished, obese. 19:40 Head/Face: Normocephalic, atraumatic. cp 19:40 Eyes: Periorbital structures: appear normal, Conjunctiva: normal, no exudate, no injection, Sclera: no appreciated abnormality, Lids and lashes: appear normal, bilaterally. 19:40 ENT: External ear(s): are unremarkable, Nose: is normal, Mouth: Lips: moist, Posterior pharynx: Airway: no evidence of obstruction, patent. 19:40 Chest/axilla: Inspection: normal, Palpation: is normal, no crepitus, no tenderness. 19:40 Cardiovascular: Rate: normal, Rhythm: regular. 19:40 Respiratory: the patient does not display signs of respiratory distress, Respirations: normal, no use of accessory muscles, no retractions, labored breathing, is not present, Breath sounds: are clear throughout, no decreased breath sounds. 19:40 Abdomen/GI: Inspection: abdomen appears normal, Bowel sounds: active, all quadrants, Palpation: soft, in all quadrants, moderate abdominal tenderness, in all quadrants, rebound tenderness, is not appreciated, voluntary guarding, is not appreciated, involuntary guarding, is not appreciated. 19:40 Back: CVA tenderness, is absent. 19:40 Neuro: Orientation: to person, place \T\ time. Mentation: is normal. Vital Signs: 18:20 BP 135 / 86; Pulse 93; Resp 17; Temp 98.4; Pulse Ox 100% ; Weight 108.86 kg; Pain 9/10; jl7 MDM: 19:15 Patient medically screened. cp 19:30 Differential diagnosis: appendicitis, cholecystitis, Cholelithiasis, diverticulitis, cp gastritis, non-specific abd pain, pancreatitis, Peptic Ulcer Disease, Perf. Duodenal Ulcer, Pelvic Inflammatory Disease. 23:20 Data reviewed: vital signs, nurses notes, lab test result(s), radiologic studies, CT cp scan. 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 Response to treatment: the patient's symptoms have markedly improved after treatment, and as a result, I will discharge patient. 11/09 19:23 Order name: Basic Metabolic Panel; Complete Time: 22:19 cp 11/09 22:19 Interpretation: Normal except: CL 110; GFR 85. cp 11/09 19:23 Order name: CBC with Diff; Complete Time: 22:19 cp 11/09 19:23 Order name: Hepatic Function; Complete Time: 22:19 cp 11/09 22:19 Interpretation: Normal except: GLOB 4.1; A/G 1.0. cp / 19:23 Order name: Lipase; Complete Time: 22:19 cp 11/09 19:24 Order name: Urine Dipstick-Ancillary; Complete Time: 22:19 EDMS 11/09 19:27 Order name: Urine --Ancillary (enter results); Complete Time: 22:19 ds4 11/09 19:59 Order name: CT Abd/Pelvis - PO and IV Contrast cp 11/09 19:23 Order name: IV Saline Lock; Complete Time: 19:39 cp 11/09 19:23 Order name: Labs collected and sent; Complete Time: 19:39 cp 11/09 19:23 Order name: Urine Dipstick-Ancillary (obtain specimen); Complete Time: 19:26 cp 11/09 19:23 Order name: Urine Test (obtain specimen); Complete Time: 19:26 cp 11/09 23:03 Order name: PO challenge; Complete Time: 23:29 cp Administered Medications: 20:02 Drug: Pepcid (famotidine) 20 mg Route: IVP; Site: left antecubital; iw 20:03 Drug: NS 0.9% 1000 ml Route: IV; Rate: 1 bolus; Site: left antecubital; iw 20:03 Drug: Zofran (Ondansetron) 4 mg Route: IVP; Site: left antecubital; iw 20:05 Drug: Bentyl (dicyclomine) 20 mg Route: PO; iw 20:50 Drug: Demerol (meperidine) 25 mg Route: IVP; Site: left forearm; iw 20:53 Not Given (Duplicate Order): Bentyl (dicyclomine) 20 mg IM once iw 21:12 Drug: Phenergan (promethazine) 12.5 mg Route: IVP; Site: left forearm; iw Disposition: 11/10 00:21 Co-signature as Attending Physician, Juan Carlos Maria MD. pkl Disposition: 11/09/20 23:21 Discharged to Home. Impression: Diarrhea, unspecified, Unspecified abdominal pain, Nausea and vomiting. - Condition is Stable. - Discharge Instructions: Abdominal Pain, Adult, Diarrhea, Adult, Nausea and Vomiting, Adult. - Prescriptions for Carafate 1 gram Oral Tablet - take 2 tablets by ORAL route every 12 hours take on an empty stomach, beginning on waking and last dose at bedtime. Dissolve tablet in small amount of warm water prior to ingestion; 100 tablet. promethazine 25 mg Oral Tablet - take 1 tablet by ORAL route every 6 hours As needed; 20 tablet. Bentyl 20 mg Oral Tablet - take 1 tablet by ORAL route every 6 hours As needed; 30 tablet. - Work release form, Medication Reconciliation Form, Thank You Letter, Antibiotic Education, Prescription Opioid Use form. - Follow up: Greta Zheng MD; When: 1 - 2 days; Reason: Recheck today's complaints. - Problem is an ongoing problem. - Symptoms have improved. Signatures: Dispatcher [employer] EDMS Juan Carlos Maria MD MD pkl Lynnette Fletcher RN RN iw See Oden PA PA cp Nga Conde RN RN jl7 Corrections: (The following items were deleted from the chart) 11/09 20:54 19:59 Abdomen Limited+US.RAD.BRZ ordered. [facility] EDAL 23:47 23:21 11/09/2020 23:21 Discharged to Home. Impression: Diarrhea, unspecified; iw Unspecified abdominal pain; Nausea and vomiting. Condition is Stable. Forms are Medication Reconciliation Form, Thank You Letter, Antibiotic Education, Prescription Opioid Use. Follow up: Greta Zheng; When: 1 - 2 days; Reason: Recheck today's complaints. Problem is an ongoing problem. Symptoms have improved. cp
[2020-11-09 23:55] VITALS: BP 135/86; TEMP 98.4; O2SAT 100
--- NOTE | 2020-11-10 14:18 | RAD REPORT ---
EXAM DESCRIPTION: CT - Abdomen Pelvis W Contrast - 11/10/2020 6:37 am CLINICAL HISTORY: ABD PAIN. COMPARISON: None. TECHNIQUE: CT of the abdomen and pelvis was performed following intravenous administration of iodina [place] contrast. Arterial phase images through the abdomen and portal venous phase images through the ab domen and pelvis were obtained. Oral contrast was not administered. Axial, coronal, and sagittal soft tissue window reconstructions were created and sent to PACS. This exam was performed according to our departmental dose-optimization program, which includes autom ated exposure control, adjustment of the mA and/or kV according to patient size and/or use of iterati ve reconstruction technique. FINDINGS: Thoracic: No significant abnormality. Hepatobiliary: Hepatomegaly, measuring 20.5 cm in length. No concerning hepatic lesion identified. Th e hepatic and portal veins are patent. The gallbladder is unremarkable. No biliary ductal dilatation. Pancreas: Unremarkable. Spleen: Unremarkable. Gastrointestinal: Tiny sliding-type hiatal hernia. No evidence of bowel obstruction or perienteric in flammation. The appendix is surgically absent. Decompressed left colon. Small amount of fecal materia l in the remainder of the colon. Adrenals: No abnormality identified in either adrenal gland. Renal: No concerning parenchymal abnormality in either kidney. No hydronephrosis or urolithiasis. Bladder/Reproductive: Unremarkable appearance of the urinary bladder by CT technique. Vascular/Lymphatics: No lymphadenopathy identified by CT size criteria. The major visceral vessels ar e patent. Abdominal aorta is normal in caliber. Musculoskeletal: No concerning osseous lesion identified. Mild L5-S1 disc and endplate degenerative c hanges. Fluid / peritoneum: No significant free fluid. No free intraperitoneal air identified. IMPRESSION: 1. No acute abnormality identified in the abdomen or pelvis by CT. 2. Hepatomegaly. 3. Tiny sliding-type hiatal hernia. 4. Mild L5-S1 disc and endplate degenerative changes. Eectronically signed by: Vioal Valenzuela MD 11/09/2020 10:25 PM CDT Due to temporary technical issues with the PACS/Fluency reporting system, reports are being signed by the in house radiologists without review as a courtesy to insure prompt reporting. The interpreting radiologist is fully responsible for the content of the report.
== END 2020-11-09 23:47 | disposition home or self-care (01) ==
LOC: ER 17:54
DX: R19.7 Diarrhea, unspecified (principal); R11.2 Nausea with vomiting, unspecified; I10 Essential (primary) hypertension
CPT/HCPCS: 85025; 80048; 36415; 81025; 80076; 81003; 83690; 74177; 99284; Q9967; J2550; J2175; J7030; J2405

== ENCOUNTER 2021-12-10 17:16 | Emergency (ER) | payer OTHER ==
[2021-12-10 20:43] LABS: Lymphocytes % 23.8 % (15.3-44.8); MCV 84.5 fL (80-100); MPV 7.7 fL (7.6-11.3); RBC Red Blood Cell Count 4.38 M/uL (3.86-4.86)
[2021-12-10 20:51] LABS: Urine Blood Negative (Negative); Urine Glucose Negative (Negative); Urine Protein Negative (Negative); Urine Specific Gravity 1.025 (1.005-1.030)
[2021-12-10] MEDS ORDERED: DIAZEPAM 5 MG TABLET ONE ×2 (20:55→21:57)
[2021-12-10] MEDS ORDERED: MORPHINE 4 MG/ML SYR ONE (20:55)
[2021-12-10] MEDS ORDERED: ONDANSETRON 4 MG/2 ML VIAL ONE ×2 (20:56→21:58)
[2021-12-10] MEDS ORDERED: dexAMETHasone 10 MG/ML VIAL ONE (20:56)
[2021-12-10] MEDS ORDERED: NA CHLORIDE 0.9% 1,000 ML ONE (20:56)
[2021-12-10] MEDS ORDERED: KETOROLAC 30 MG/ML INJ ONE (20:56)
[2021-12-10 20:59] LABS: Albumin 3.9 g/dL (3.4-5.0); Bilirubin Total 0.4 mg/dL (0.2-1.0); Potassium 3.4 mmol/L (3.5-5.1); Protein, Total 7.2 g/dL (6.4-8.2)
--- NOTE | 2021-12-10 21:30 | RAD REPORT ---
EXAM DESCRIPTION: CT - Spine Lumbar Wo Con - 12/10/2021 9:09 pm CLINICAL HISTORY: Low back pain, progressive neurologic deficit COMPARISON: None. TECHNIQUE: Thin section axial imaging of the lumbar spine was performed. Sagittal and coronal recon struction images were generated and reviewed. All CT scans are performed using dose optimization technique as appropriate and may include automated exposure control or mA/KV adjustment according to patient size. FINDINGS: Lumbar vertebral bodies are normal in height. No lytic or expansile bony destructive proce ss seen. L5-S1 disc space narrowing is present. There are sclerotic changes in the L5 and S1 vertebra e abutting the endplates consistent with pre-existing degenerative disc disease. Patient has L5 pars interarticularis defects without subluxation abnormality. T12-L1 thru L4-5 disc levels show no evidence for herniation or significant disc bulge. No canal or f oramen stenosis identified. Right foramen and right central canal disc herniation changes are present L5-S1. This flattens the right anterior thecal sac and displaces the right S1 nerve root sleeve. The re is contact of the right L5 nerve root as well. IMPRESSION: Moderately large L5-S1 right central canal and right exit foramen disc herniation. This contacts and/or displaces the right S1 and right L5 nerve roots. 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 Sclerotic changes in L5 and S1 along with L5-S1 disc spac e narrowing indicate degenerative disc disease predating the acute injury.
--- NOTE | 2021-12-10 21:52 | EDPHYS ---
Physician Documentation [facility] Name: Felicia Cheung Age: 36 yrs Sex: Female : 1985 Arrival Date: 12/10/2021 Time: 17:18 Bed 12 Private MD: AMBAR Physician See Rosario HPI: 12/10 20:32 This 36 yrs old Female presents to ER via Wheelchair with complaints of Back haydee Injury. 20:32 The patient presents with pain that is acute, and decreased range of motion, and an haydee injury, and tenderness. The symptoms are located in the low back. Onset: The symptoms/episode began/occurred just prior to arrival. The pain radiates to the lumbar area, left low back and right low back. Associated signs and symptoms: The patient has no apparent associated signs or symptoms. The problem was sustained when lifting heavy object. Modifying factors: The patient symptoms are alleviated by nothing, remaining still, the patient symptoms are aggravated by any movement, bending, lifting, movement. Severity of symptoms: At their worst the symptoms were mild, in the emergency department the symptoms are unchanged. The patient has not experienced similar symptoms in the past. 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 - Social history:: Smoking status: Patient denies any tobacco usage or history of. - Family history:: not pertinent. ROS: 20:32 Constitutional: Negative for fever, chills, and weight loss, Eyes: Negative for injury, haydee pain, redness, and discharge, ENT: Negative for injury, pain, and discharge, Neck: Negative for injury, pain, and swelling, Cardiovascular: Negative for chest pain, palpitations, and edema, Respiratory: Negative for shortness of breath, cough, wheezing, and pleuritic chest pain, Abdomen/GI: Negative for abdominal pain, nausea, vomiting, diarrhea, and constipation, : Negative for injury, bleeding, discharge, and swelling, MS/Extremity: Negative for injury and deformity, Skin: Negative for injury, rash, and discoloration, Neuro: Negative for headache, weakness, numbness, tingling, and seizure, Psych: Negative for depression, anxiety, suicide ideation, homicidal ideation, and hallucinations, Allergy/Immunology: Negative for hives, rash, and allergies, Endocrine: Negative for neck swelling, polydipsia, polyuria, polyphagia, and marked weight changes, Hematologic/Lymphatic: Negative for swollen nodes, abnormal bleeding, and unusual bruising. 20:32 Back: Positive for decreased range of motion, pain at rest, pain with movement, of the lumbar area. Exam: 20:32 Constitutional: This is a well developed, well nourished patient who is awake, alert, haydee and in no acute distress. Head/Face: Normocephalic, atraumatic. Eyes: Pupils equal round and reactive to light, extra-ocular motions intact. Lids and lashes normal. Conjunctiva and sclera are non-icteric and not injected. Cornea within normal limits. Periorbital areas with no swelling, redness, or edema. ENT: Nares patent. No nasal discharge, no septal abnormalities noted. Tympanic membranes are normal and external auditory canals are clear. Oropharynx with no redness, swelling, or masses, exudates, or evidence of obstruction, uvula midline. Mucous membranes moist. Neck: Trachea midline, no thyromegaly or masses palpated, and no cervical lymphadenopathy. Supple, full range of motion without nuchal rigidity, or vertebral point tenderness. No Meningismus. Chest/axilla: Normal chest wall appearance and motion. Nontender with no deformity. No lesions are appreciated. Cardiovascular: Regular rate and rhythm with a normal S1 and S2. No gallops, murmurs, or rubs. Normal PMI, no JVD. No pulse deficits. Respiratory: Lungs have equal breath sounds bilaterally, clear to auscultation and percussion. No rales, rhonchi or wheezes noted. No increased work of breathing, no retractions or nasal flaring. Abdomen/GI: Soft, non-tender, with normal bowel sounds. No distension or tympany. No guarding or rebound. No evidence of tenderness throughout. Skin: Warm, dry with normal turgor. Normal color with no rashes, no lesions, and no evidence of cellulitis. MS/ Extremity: Pulses equal, no cyanosis. Neurovascular intact. Full, normal range of motion. Neuro: Awake and alert, GCS 15, oriented to person, place, time, and situation. Cranial nerves II-XII grossly intact. Motor strength 5/5 in all extremities. Sensory grossly intact. Cerebellar exam normal. Normal gait. Psych: Awake, alert, with orientation to person, place and time. Behavior, mood, and affect are within normal limits. 20:32 Back: pain, that is moderate, ROM is painful, normal spinal alignment noted, CVA tenderness, is absent, muscle spasm, is appreciated in the left low back, left mid back, right mid back and right low back. Vital Signs: 17:44 BP 150 / 96; Pulse 108; Resp 20; Temp 98.8; Pulse Ox 100% ; Weight 86.18 kg; Height 5 badillo ft. 9 in. (175.26 cm); 21:47 BP 140 / 88; Pulse 60; Resp 16 S; Pulse Ox 100% on R/A; bb 22:45 BP 149 / 68; Pulse 84; Resp 16; Pulse Ox 99% on R/A; jb4 23:15 BP 139 / 82; Pulse 91; Resp 17; Pulse Ox 98% on R/A; jb4 12/11 00:30 BP 141 / 85; Pulse 102; Resp 18; Pulse Ox 99% on R/A; jb4 02:06 BP 152 / 82; Pulse 100; Resp 16 S; Pulse Ox 98% on R/A; bb 12/10 17:44 Body Mass Index 28.06 (86.18 kg, 175.26 cm) badillo MDM: 12/10 19:34 Patient medically screened. haydee 20:34 Differential diagnosis: Fatigue Fracture Osteoarthritis ruptured disc, spinal injury, haydee sprain, vertebral fracture. Data reviewed: vital signs, nurses notes, lab test result(s), radiologic studies, CT scan. Data interpreted: Pulse oximetry: on room air is 100 %. Counseling: I had a detailed discussion with the patient and/or guardian regarding: the historical points, exam findings, and any diagnostic results supporting the discharge/admit diagnosis, lab results, radiology results, the need for outpatient follow up, for definitive care, a family practitioner, a neurologist. 12/10 20:22 Order name: CBC with Diff; Complete Time: 21:47 haydee 12/10 20:22 Order name: Comprehensive Metabolic Panel; Complete Time: 21:47 [facility] 12/10 20:22 Order name: CT Lumbar Spine Wo Con; Complete Time: 21:47 haydee 12/10 20:51 Order name: Urine Dipstick-Ancillary; Complete Time: 21:47 EDMS 12/10 20:57 Order name: Urine --Ancillary (enter results) 12/10 21:52 Order name: SARS-COV-2 RT PCR (Document "Date of Onset" if Symptomatic) 12/10 20:22 Order name: Urine Dipstick-Ancillary (obtain specimen); Complete Time: 20:52 [facility] 12/10 20:22 Order name: Urine Test (obtain specimen); Complete Time: 20:52 [facility] Administered Medications: 20:45 Drug: NS 0.9% 1000 ml Route: IV; Rate: 1 bolus; Site: right antecubital; bb 22: Follow up: IV Status: Completed infusion; IV Intake: 950ml bb 20:45 Drug: Zofran (Ondansetron) 4 mg Route: IVP; Site: right antecubital; bb 22:02 Follow up: Response: No adverse reaction bb 20:46 Drug: Valium (diazepam) 5 mg Route: PO; bb 22:01 Follow up: Response: No adverse reaction bb 20:47 Drug: morphine 4 mg Route: IVP; Infused Over: 4 mins; Site: right antecubital; bb 22:01 Follow up: Response: No adverse reaction; No change in condition; Pain is unchanged, bb physician notified 20:51 Drug: Ketorolac 30 mg Route: IVP; Site: right antecubital; bb 22:01 Follow up: Response: No adverse reaction bb 20:52 Drug: Decadron - Dexamethasone 10 mg Route: IVP; Site: right antecubital; bb 22:02 Follow up: Response: No adverse reaction bb 21:55 Drug: Dilaudid (HYDROmorphone) 1 mg Route: IVP; Site: right antecubital; bb 23:00 Follow up: Response: No adverse reaction; Pain is decreased bb 22:00 Drug: Valium (diazepam) 5 mg Route: PO; bb 22:01 Follow up: Response: No adverse reaction bb 22:00 Drug: Zofran (Ondansetron) 4 mg Route: IVP; Site: right antecubital; bb 23:00 Follow up: Response: No adverse reaction bb 22:12 Drug: Potassium Effervescent Tablet 25 mEq Route: PO; jb4 23:00 Follow up: Response: No adverse reaction bb 12/11 02:02 Drug: Dilaudid (HYDROmorphone) 1 mg Route: IVP; Site: right antecubital; bb 02:07 Follow up: Response: medication adminstered at transfer bb Disposition Summary: 12/10/21 21:52 Transfer Ordered Transfer Location: [facility] haydee Reason: Higher level of care haydee Condition: Stable haydee Problem: new haydee Symptoms: have improved haydee Accepting Physician: to [facility](12/11/21 02:07) selvin Diagnosis - Strain of muscle, fascia and tendon of abdomen, lower back and pelvis haydee - Sciatica - moderately large, L5-S1MOD LARGE RIGHTDISC HERNIATION haydee - Hypokalemia haydee Discharge Instructions: - Discharge Summary Sheet haydee - Acute Back Pain, Adult haydee - Musculoskeletal Pain haydee - Sciatica haydee - Back Injury Prevention, Eagu-so-Heka haydee - Sciatica, [id number] haydee Forms: - Medication Reconciliation Form haydee - SBAR form [facility] Prescriptions: - Ibuprofen 600 mg Oral Tablet - take 1 tablet by ORAL route every 6 hours As needed take with food; 30 tablet; haydee Refills: 0, Product Selection Permitted - Valium 5 mg Oral Tablet - take 1 tablet by ORAL route every 8 hours As needed; 20 tablet; Refills: 0, [facility] Product Selection Permitted - Diclofenac Sodium 75 mg Oral Tablet Sustained Release - take 1 tablet by ORAL route 2 times per day; 30 tablet; Refills: 0, Product [facility] Selection Permitted - Tylenol-Codeine #3 300 mg-30 mg Oral - take 2 tablet by ORAL route every 6 hours; 24 tablet; Refills: 0, Product [facility] Selection Permitted - dexamethasone 2 mg Oral tablet - take 1 tablet by ORAL route 3 times per day; 15 tablet; Refills: 0, Product [facility] Selection Permitted Signatures: Dispatcher [employer] EDMS See Rosario MD MD cha Ballard, Brenda, RN RN bb Bryson, James RN AMI jb4 Au-StagerMelba RN RN ha Corrections: (The following items were deleted from the chart) 12/10 21:11 20:22 Thoracic Spine WO Cont+CT.RAD.BRZ ordered. EDKS EDMS 21:53 21:52 to [facility] 12/11 02:07 12/10 21:53 to [facility] , [facility] bb
--- NOTE | 2021-12-10 21:52 | ER ---
Nurse's Notes [facility] Name: Felicia Cheung Age: 36 yrs Sex: Female : 1985 Arrival Date: 12/10/2021 Time: 17:18 Bed 12 Private MD: Diagnosis: Strain of muscle, fascia and tendon of abdomen, lower back and pelvis;Sciatica-moderately large, L5-S1MOD LARGE RIGHTDISC HERNIATION;Hypokalemia Presentation: 12/10 17:43 Chief complaint: Patient states: pt reporting picking up a case of water and pulled her badillo right sided back the radiates to lower back and right leg. pt unable to bare weight on the right leg. Care prior to arrival: None. 17:43 Acuity: COMPA 4 badillo 17:43 Method Of Arrival: Wheelchair badillo 17:44 Coronavirus screen: Vaccine status: Patient reports receiving the 2nd dose of the covid badillo vaccine. Ebola Screen: Patient denies travel to an Ebola-affected area in the 21 days before illness onset. Initial Sepsis Screen: Does the patient meet any 2 criteria? HR > 90 bpm. Does the patient have a suspected source of infection? No. Patient's initial sepsis screen is negative. Risk Assessment: Do you want to hurt yourself or someone else? Patient reports no desire to harm self or others. Onset of symptoms was December 10, 2021. Triage Assessment: 17:45 General: Appears uncomfortable, Behavior is cooperative, anxious. Pain: Complains of badillo pain in back and right leg. 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 - Social history:: Smoking status: Patient denies any tobacco usage or history of. - Family history:: not pertinent. Screenin/05 01:02 Abuse screen: Denies threats or abuse. Nutritional screening: No deficits noted. bb Tuberculosis screening: No symptoms or risk factors identified. Fall Risk None identified. Assessment: 12/10 19:45 General: Appears in no apparent distress. uncomfortable, Behavior is calm, cooperative, jb4 appropriate for age. Pain: Complains of pain in low back area Pain radiates to right leg and left leg Pain currently is 10 out of 10 on a pain scale. Neuro: Level of Consciousness is awake, alert, obeys commands, Oriented to person, place, time, situation, Gait is unsteady. Cardiovascular: Patient's skin is warm and dry. Respiratory: Airway is patent Respiratory effort is even, unlabored, Respiratory pattern is regular, symmetrical. Derm: Skin is intact, Skin is pink, warm \T\ dry. Musculoskeletal: Circulation, motion, and sensation intact. Range of motion:. 20:59 Reassessment: pt to CT scan via wheelchair accompanied by lead principal technical architect. bb 21:46 Reassessment: pt states pain has not improved Dr Rosario notified new orders received bb pt medicated see AUG. 22:00 Reassessment: Patient appears in no apparent distress at this time. Patient and/or jb4 family updated on plan of care and expected duration. Pain level reassessed. Patient is alert, oriented x 3, equal unlabored respirations, skin warm/dry/pink. 23:00 Reassessment: Patient appears in no apparent distress at this time. Patient and/or jb4 family updated on plan of care and expected duration. Pain level reassessed. Patient is alert, oriented x 3, equal unlabored respirations, skin warm/dry/pink. Patient states feeling better. Patient states symptoms have improved. 12/11 00:43 Reassessment: Patient appears in no apparent distress at this time. Patient and/or jb4 family updated on plan of care and expected duration. Pain level reassessed. Patient is alert, oriented x 3, equal unlabored respirations, skin warm/dry/pink. Patient states feeling better. Patient states symptoms have improved. 01:01 Reassessment: report called to Suraj MUELLER for room 2262 at [facility]. bb 02:04 Reassessment: Patient is alert, oriented x 3, equal unlabored respirations, skin bb warm/dry/pink. [facility] at bedside for transfer of pt to [facility]. IV site intact, patent with no erythema or edema noted. Vital Signs: 12/10 17:44 BP 150 / 96; Pulse 108; Resp 20; Temp 98.8; Pulse Ox 100% ; Weight 86.18 kg; Height 5 badillo ft. 9 in. (175.26 cm); 21:47 BP 140 / 88; Pulse 60; Resp 16 S; Pulse Ox 100% on R/A; bb 22:45 BP 149 / 68; Pulse 84; Resp 16; Pulse Ox 99% on R/A; jb4 23:15 BP 139 / 82; Pulse 91; Resp 17; Pulse Ox 98% on R/A; jb4 12/11 00:30 BP 141 / 85; Pulse 102; Resp 18; Pulse Ox 99% on R/A; jb4 02:06 BP 152 / 82; Pulse 100; Resp 16 S; Pulse Ox 98% on R/A; bb 12/10 17:44 Body Mass Index 28.06 (86.18 kg, 175.26 cm) badillo ED Course: 12/10 17:18 Patient arrived in ED. jj6 17:44 Triage completed. badillo 17:45 Arm band placed on. badillo 19:34 See Rosario MD is Attending Physician. haydee 20:30 Inserted saline lock: 20 gauge in right antecubital area, using aseptic technique. mw2 Blood collected. 20:37 Comprehensive Metabolic Panel Sent. mw2 20:37 CBC with Diff Sent. mw2 21:11 CT Lumbar Spine Wo Con In Process Unspecified. EDMS 22:00 Initiated transfer to [facility], spoke with Mony Bustillo. wm 23:32 Pt accepted for transfer to [facility] by Dr. Shane Stone \T\ 22:52 per Mony Bustillo. 12/11 00:37 Adeel Gill, RN is Primary Nurse. jb4 01:02 Patient has correct armband on for positive identification. bb 01:02 No provider procedures requiring assistance completed. Patient transferred, IV remains bb in place. Administered Medications: 12/10 20:45 Drug: NS 0.9% 1000 ml Route: IV; Rate: 1 bolus; Site: right antecubital; bb 22:01 Follow up: IV Status: Completed infusion; IV Intake: 950ml bb 20:45 Drug: Zofran (Ondansetron) 4 mg Route: IVP; Site: right antecubital; bb 22:02 Follow up: Response: No adverse reaction bb 20:46 Drug: Valium (diazepam) 5 mg Route: PO; bb 22:01 Follow up: Response: No adverse reaction bb 20:47 Drug: morphine 4 mg Route: IVP; Infused Over: 4 mins; Site: right antecubital; bb 22:01 Follow up: Response: No adverse reaction; No change in condition; Pain is unchanged, bb physician notified 20:51 Drug: Ketorolac 30 mg Route: IVP; Site: right antecubital; bb 22:01 Follow up: Response: No adverse reaction bb 20:52 Drug: Decadron - Dexamethasone 10 mg Route: IVP; Site: right antecubital; bb 22:02 Follow up: Response: No adverse reaction bb 21:55 Drug: Dilaudid (HYDROmorphone) 1 mg Route: IVP; Site: right antecubital; bb 23:00 Follow up: Response: No adverse reaction; Pain is decreased bb 22:00 Drug: Valium (diazepam) 5 mg Route: PO; bb 22:01 Follow up: Response: No adverse reaction bb 22:00 Drug: Zofran (Ondansetron) 4 mg Route: IVP; Site: right antecubital; bb 23:00 Follow up: Response: No adverse reaction bb 22:12 Drug: Potassium Effervescent Tablet 25 mEq Route: PO; jb4 23:00 Follow up: Response: No adverse reaction bb 12/11 02:02 Drug: Dilaudid (HYDROmorphone) 1 mg Route: IVP; Site: right antecubital; bb 02:07 Follow up: Response: medication adminstered at transfer bb Medication: 01:02 VIS not applicable for this client. bb Intake: 12/10 22:01 IV: 950ml; Total: 950ml. bb Outcome: 21:52 ER care complete, transfer ordered by MD. hubbard 12/11 01:02 Condition: stable bb Instructed on the need for transfer. 02:06 Transferred by ground EMS to [facility], Transfer form completed. bb X-rays sent w/ patient. 02:07 Patient left the ED. bb Signatures: Dispatcher [employer] EDSee Martins MD MD cha Ballard, Brenda, RN RN bb Adeel Gill, RN RN jb4 Stormy Monk 2 Joanne Tyler Katarzyna Kirby jj6 Muna-StageMelba oscar RN RN badillo
[2021-12-10] MEDS ORDERED: HYDROMORPHONE HCL 1 MG/ML INJ ONE (21:58)
[2021-12-10] MEDS ORDERED: POTASSIUM 25 MEQ EFFERV TAB ONE (22:16)
[2021-12-10 23:26] LABS: Urine Specific Gravity/Preg 1.025 (1.005-1.030)
[2021-12-11] MEDS ORDERED: HYDROMORPHONE HCL 1 MG/ML INJ ONE (02:04)
[2021-12-11 03:09] VITALS: TEMP 98.8
[2021-12-11 03:18] VITALS: BP 152/82; O2SAT 98
== END 2021-12-11 02:07 | disposition short-term general hospital (02) ==
LOC: ER 17:16
DX: S39.012A Strain of muscle, fascia and tendon of lower back, initial encounter (principal); M54.31 Sciatica, right side; E87.6 Hypokalemia; M51.27 Other intervertebral disc displacement, lumbosacral region; I10 Essential (primary) hypertension; Z20.822 Contact with and (suspected) exposure to COVID-19
CPT/HCPCS: 85025; 36415; 81025; 81003; 80053; 72131; U0003; J1100; J1170 ×2; J7030; J2405 ×2; 96361; 96374; 96375; 99285

== ENCOUNTER 2022-03-25 11:19 | Emergency (ER) | payer OTHER ==
--- OUTSIDE RECORDS SUMMARY | 2022-03-25 11:27 | XMS REPORT | Continuity of Care Document ---
:[address] [facility] t Address [address] [place] [address] Care Team Providers Name Role Phone PCP, PATIENT DOES NOT HAVE A Primary Care Physician UnavailSanna Hunter Attending Clinician Unavailable Dion Dow MD Attending Clinician DION DOW Attending Clinician Unavailable DEX ALVES Attending Clinician Unavailable TASHI MARTÍNEZ Attending Clinician Unavailable CONSTANTINO MARRUFO Attending Clinician Unavailable AYE MEJIA Attending Clinician Unavailable Aye Mejia MD Attending Clinician Doctor Unassigned, [place] Attending Clinician Unavailable Tristan Christian Attending Clinician TRISTAN TREJO Attending Clinician Unavailable FELIPA SMITH Attending Clinician Unavailable Felipa Smith PA-C Attending Clinician LEANN YAO Attending Clinician Unavailable Leann Yao MD Attending Clinician Vane MUELLER, Yesi Chinchilla Attending Clinician Unavailable Lab, Adc Fam Pob I Attending Clinician Unavailable Venus Limon Attending Clinician Sanna Hoffman Admitting Clinician Unavailable TASHI MARTÍNEZ Admitting Clinician Unavailable AYE MEJIA Admitting Clinician Unavailable Payers Payer Name Policy Type Policy Number Effective Date Expiration Date S alvaro [facility] [id number] 2019 00:00:00 MEDICAID COMM [id number] 2019 [facility] 00:00:00 [facility] [id number] 2019 00:00:00 [facility] [id number] 2019 CHOICE MEDICAID 00:00:00 Problems Condition Condition Condition Status Onset Resolution Last Treating Co mments Source Name Details Category Date Date Treatment Clinician Date No known No known Disease [facility] problems problems of Medicin e Allergies, Adverse Reactions, Alerts Allergy Allergy Status Severity Reaction(s) Onset Inactive Treating Comm ents Source Name Type Date Date Clinician No Known DA Active U 2020-0 [facility] [place] No Known DA Active U 2020-0 [facility] [place] CODEINE DA Active U VOMIT HYPER 2007-0 [facility] 3[facility]14 [facility] [place] No Known DA Active U 2007-0 [facility] Contrast 3-14 [facility] [place] No Known DA Active U 2006-0 [facility] Food 3-14 [facility] [place] No Known DA Active U 2007-0 [facility] Other 3-14 [facility] [place] NO KNOWN Drug Active [facility] ALLERGIE Class ity of S [facility] NO KNOWN Allergy Active [facility] Social History Social Habit Start Date Stop Date Quantity Comments Source History of Cigarette Smoker [facility] Zoey osman of tobacco use Medicine History [facility] o f Alcohol Frequency [place] M edical Branch History [facility] University o f Alcohol Std [place] Medical Drinks Branch History [facility] o f Alcohol Binge [place] Medic al Branch Alcohol intake 2022-03-21 2022-03-21 Current drinker [facility] of 00:00:00 00:00:00 of alcohol Medicine (finding) Tobacco use and 2022-01-02 2022-01-02 Smokeless tobacco [facility] of exposure 00:00:00 00:00:00 non-user Medicine Exposure to 2021-10-27 2021-11-06 [facility] (event) [place] Alcohol Comment 2021-06-03 2021-06-03 social Universit y of 00:00:00 00:00:00 [facility] Sex [birth year] [facility] llege of 00:00:00 00:00:00 Medicine Smoking Status Start Date Stop Date Source Unknown if ever smoked Universit y of [facility] Ex-smoker 2022-01-02 00:00:00 2022-01-02 00:00:00 [facility] Never [facility]oker [facility] Medications Ordered Filled Start Stop Current Ordering Indication Dosage Frequency Signature Comments Components Source Medication Medication Date Date Medication? Clinician (SIG) Name Name lisinopril- 2021-06 Yes 1{tbl} Take 1 [facility] hydrochloro 0-13 Tablet by Col lege thiazide 12:18: mouth of (PRINZIDE, 04 daily. Medicin ZESTORETIC) e 20-25 MG per tablet methylPREDN 2021-06 Yes [id number] 1{packa Take 1 [facility] ISolone 4 0-13 ge} Package by Jr ege MG TBPK 00:00: mouth See of 00 Admin Medicin Instructio e ns. Medrol dose pack. tramadol 2021-06 Yes [id number] 1{tbl} Take 1 Giovani (ULTRAM) 50 0-07 Tablet by Col lege MG tablet 00:00: mouth of 00 every 8 Medicin hours as e needed for Pain. lisinopril- Yes 1{tbl} Take 1 [facility] hydrochloro 8-30 Tablet by Col lege thiazide 13:32: mouth of (PRINZIDE, 10 daily. Medicin ZESTORETIC) e 20-25 MG per tablet tramadol 2021- No [id number] 1{tbl} Take 1 [facility] (ULTRAM) 50 8-29 08-30 Tablet by Co llege MG tablet 00:00: 00:00 mouth of 00 :00 every 8 Medicin hours as e needed for Pain for up to 5 days. oxycodone-a 2021- No [id number] 1{tbl} Take 1 [facility] cetaminophe 8-16 08-30 Tablet by Co llege n 00:00: 00:00 mouth of (PERCOCET) 00 :00 every 6 Medici n 5-325 MG hours as e per tablet needed for Pain. cyclobenzap Yes [id number] 10mg Take 1 [facility] rine 8-15 Tablet by [place] (FLEXERI) 00:00: mouth 3 of 10 MG 00 times Medicin tablet daily as e needed for Muscle spasms. cyclobenzap Yes [id number] 10mg Take 1 [facility] rine 8-15 Tablet by [place] (FLEXERIL) 00:00: mouth 3 of 10 MG 00 times Medicin tablet daily as e needed for Muscle spasms. oxycodone-a 2021- No 1{tbl} Take 1 [facility] cetaminophe 7-27 07-27 Tablet by Co llege n 14:22: 00:00 mouth of (PERCOCET) 16 :00 every 4 Medici n 10-325 MG hours as e per tablet needed. cyclobenzap Yes 10mg Take 10 mg [facility] rine 7-27 by mouth 3 College (FLEXERIL) 13:56: times of 10 MG 55 daily as Medicin tablet needed for e Muscle spasms. lisinopril- Yes 1{tbl} Take 1 [facility] hydrochloro 7-27 Tablet by Col lege thiazide 13:56: mouth of (PRINZIDE, 22 daily. Medicin ZESTORETIC) e 20-25 MG per tablet methylPREDN Yes [id number] 1{packa Take 1 [facility] ISolone 4 7-27 ge} Package by Jr ege MG TBPK 00:00: mouth See of 00 Admin Medicin Instructio e ns. Medrol dose pack. tramadol Yes [id number] 1{tbl} Take 1 [facility] (ULTRAM) 50 7-27 Tablet by Col lege MG tablet 00:00: mouth of 00 every 8 Medicin hours as e needed for Pain. methylPREDN Yes [id number] 1{packa Take 1 [facility] ISolone 4 7-27 ge} Package by Jr ege MG TBPK 00:00: mouth See of 00 Admin Medicin Instructio e ns. Medrol dose pack. methylPREDN 2021- No [id number] 1{packa Take 1 [facility] ISolone 4 7-27 10-13 ge} Package by Col lege MG TBPK 00:00: 00:00 mouth See of 00 :00 Admin Medicin Instructio e ns. Medrol dose pack. pregabalin 2022- No 150mg Take 150 [facility] (LYRICA) 7-12 07-13 mg by [place] 150 MG 00:00: 04:59 mouth two of capsule 00 :00 times Medicin daily. e pregabalin 2022- No 150mg Take 150 [facility] (LYRICA) 7-12 07-13 mg by [place] 150 MG 00:00: 04:59 mouth two of capsule 00 :00 times Medicin daily. e pregabalin 2022- No 150mg Take 150 [facility] (LYRICA) 7-12 07-13 mg by [place] 150 MG 00:00: 04:59 mouth two of capsule 00 :00 times Medicin daily. e dicyclomine 2021- No 20mg 20 mg, Uni vers (BENTYL) 11-06 Oral, ity of tablet 20 17:15: 16:25 ONCE, 1 [place] mg 00 :00 dose, On [facility] Branch 11/06/21 at 1215, GM maalox:diph 2021- No 15mL 15 mL, Uni vers enhydrAMINE 11-06 Oral, ity of :lidocaine 17:15: 16:25 ONCE, 1 [place] as 2 % viscous 00 :00 dose, On Medi jono 1:1:1 Tue Branch ([facility] 11/06[facility]21 at [facility]) 1215, GM oral suspension 15 mL morpHINE (4 2021- No 4mg 4 mg, Slow Univers mg/mL) 11-06 IV Push, ity of injection 4 16:30: 15:19 ONCE, 1 [place] mg 00 :00 dose, On Medical Tue Branch 11/06/21 at 1130, STAT ondansetron 2021- No 4mg 4 mg, Slow Univers (ZOFRAN 11-06 IV Push, ity of (PF)) 16:30: 15:19 ONCE, 1 [place] injection 4 00 :00 dose, On Medi jono mg Tue Branch 11/06/21 at 1130, GM iopamidol 2021- No [id number] 50mL 50 mL, U nivers (ISOVUE 11-06 Intravenou ity o f 370-500 mL) 15:44: 15:45 s, ONCE, 1 [place] injection 00 :00 dose, On Medica l 50 mL Tue Branch 11/06/21 at 1100, Routine dicyclomine 2021-0 Yes [id number] 20mg Take 1 Univers 20 mg 5-31 tablet by ity of tablet 00:00: mouth 4 [place] 00 (four) Medical times Branch daily. metoclopram 2021-0 Yes [id number] 10mg Take 1 Univers lilliam HCl 10 5-31 tablet by ity of mg tablet 00:00: mouth [place] 00 every 6 Medical (six) Branch hours. pantoprazol 2021-0 Yes [id number] 40mg Take 1 Univers e 40 mg EC 5-31 tablet by ity of tablet 00:00: mouth [place] 00 daily. Medical Branch traMADoL 50 2021-0 Yes [id number] 50mg Take 1 Univ ers mg tablet 5-31 tablet by ity o f 00:00: mouth [place] 00 every 6 Medical (six) Branch hours as needed for Pain (scale 4-6). Indication s: acute pain metoclopram 2021-0 Yes 10mg Take 10 mg [facility]ani lilliam 5-31 by mouth. [facility] 10 00:00: of MG tablet 00 Medicin e pantoprazol Yes 1{tbl} Take 1 Ba [facility] e 5-31 Tablet by [place] (PROTONIX) 00:00: mouth of 40 MG 00 daily. Medicin tablet e metoclopram 0 Yes 10mg Take 10 mg [facility] lilliam 5-31 by mouth. [facility] 10 00:00: of MG tablet 00 Medicin e pantoprazol Yes 1{tbl} Take 1 Ba [facility] e 5-31 Tablet by [place] (PROTONIX) 00:00: mouth of 40 MG 00 daily. Medicin tablet e metoclopram Yes 10mg Take 10 mg [facility]ani lilliam 5-31 by mouth. [place] ([facility]) 10 00:00: of MG tablet 00 Medicin e pantoprazol Yes 1{tbl} Take 1 Ba [facility] e 5-31 Tablet by [place] (PROTONIX) 00:00: mouth of 40 MG 00 daily. Medicin tablet e tramadol 2021- No 50mg Take 50 mg [facility] (ULTRAM) 50 5-31 07-27 by mouth. Co llege MG tablet 00:00: 00:00 of 00 :00 Medicin e amoxicillin 2021- No [id number] 875mg Take 1 Univers 875 mg 5-10 05-21 tablet by ity of tablet 00:00: 04:59 mouth 2 [place] 00 :00 (two) Medical times Branch daily for 10 days. codeine-gua 2021- No 10mL Take 10 mL Univers ifenesin 5-10 05-18 by mouth ity of 10-100 mg/5 00:00: 04:59 every 6 [place] mL oral 00 :00 (six) Medical solution hours as Branch needed for Cough for up to 7 days. Indication s: cough predniSONE 2021-2021- No [id number] 40mg Take 2 Univers 20 mg 5-10 05-16 tablets by ity of tablet 00:00: 04:59 mouth [place] 00 :00 daily for Medical 5 days. Branch dicyclomine 2020-06 Yes [id number] 20mg Take 1 Univers 20 mg 2-26 tablet by ity of tablet 00:00: mouth 4 [place] 00 (four) Medical times Branch daily. bromphenira 2020-06 Yes [id number] 5mL Take 5 mL Univers mine-pseudo 2-26 by mouth 3 it y of ephedrine-D 00:00: (three) [place] as M (BROMFED 00 times Medical DM) 2-30-10 daily as Bran ch mg/5 mL needed for syrup Cough. dicyclomine 2020-06 Yes [id number] 20mg Take 1 Univers 20 mg 2-26 tablet by ity of tablet 00:00: mouth 4 [place] ([facility]) Medical times Branch daily. bromphenira 2020-06 Yes [id number] 5mL Take 5 mL Univers mine-pseudo 2-26 by mouth 3 it y of ephedrine-D 00:00: (three) [place]esh as M (BROMFED times Medical DM) 2-30-10 daily as Bran ch mg/5 mL needed for syrup Cough. dicyclomine 2020-06 Yes [id number] 20mg Take 1 Univers 20 mg 2-26 tablet by ity of tablet 00:00: mouth 4 [place] ([facility]) Medical times [place] daily. bromphenira 2020-06 Yes [id number] 5mL Take 5 mL Univers mine-pseudo 2-26 by mouth 3 it y of ephedrine-D 00:00: (three) [place] as M (BROMFED times Medical DM) 2-30-10 daily as Bran ch mg/5 mL needed for syrup Cough. dicyclomine 2020-06 Yes [id number] 20mg Take 1 Univers 20 mg 2-26 tablet by ity of tablet 00:00: mouth 4 [place] ([facility]) Medical times Branch daily. bromphenira 2020-06 Yes [id number] 5mL Take 5 mL Univers mine-pseudo 2-26 by mouth 3 it y of ephedrine-D 00:00: (three) [place] as M (BROMFED 00 times Medical DM) 2-30-10 daily as Bran ch mg/5 mL needed for syrup Cough. dicyclomine 2020-06 Yes [id number] 20mg Take 1 Univers 20 mg 2-26 tablet by ity of tablet 00:00: mouth 4 ([facility]) Medical times Branch daily. bromphenira 2020-06 Yes [id number] 5mL Take 5 mL Univers mine-pseudo 2-26 by mouth 3 it y of ephedrine-D 00:00: (three) [place]esh as M (BROMFED 00 times Medical DM) 2-30-10 daily as Bran ch mg/5 mL needed for syrup Cough. bromphenira 2020-06 Yes [id number] 5mL Take 5 mL Univers mine-pseudo 1-29 by mouth 4 it y of ephedrine-D 00:00: (four) [place] M (BROMFED 00 times Medical DM) 2-30-10 daily as Bran ch mg/5 mL needed for syrup Congestion /Allergies . azelastine 2020-06 Yes [id number] 1{spray Use 1 Univers 137 mcg 1-29 } [place] in ity of (0.1 %) 00:00: each [place] nasal spray 00 nostril 2 Med ical (two) Branch times daily. Use in each nostril as directed fluticasone 2020-06 Yes [id number] 1{spray Use 1 Univers propionate 1-29 } [place] in ity o f 50 00:00: each [place] mcg/actuati 00 nostril Medic al on nasal daily. Branch spray guaiFENesin 2020-06 Yes [id number] 400mg Take 1 Univers 400 mg 1-29 tablet by ity of tablet 00:00: mouth [place] 00 every 4 Medical (four) Branch hours as needed for Cough. benzonatate 2020-06 Yes [id number] 200mg Take 2 Univers 100 mg 1-29 capsules ity of capsule 00:00: by mouth 2 [place] 00 (two) Medical times Branch daily as needed for Cough. bromphenira 2020-06 Yes [id number] 5mL Take 5 mL Univers mine-pseudo 1-29 by mouth 4 it y of ephedrine-D 00:00: (four) [place] M (BROMFED 00 times Medical DM) 2-30-10 daily as Bran ch mg/5 mL needed for syrup Congestion /Allergies . azelastine 2020-06 Yes [id number] 1{spray Use 1 Univers 137 mcg 1-29 } [place] ity of (0.1 %) 00:00: each [place] nasal spray 00 nostril 2 Med ical (two) Branch times daily. Use in each nostril as directed fluticasone 2020-06 Yes [id number] 1{spray Use 1 Univers propionate 1-29 } [place] in ity o f 50 00:00: each [place] mcg/actuati 00 nostril Medic al on nasal daily. Branch spray guaiFENesin 2020-06 Yes [id number] 400mg Take 1 Univers 400 mg 1-29 tablet by ity of tablet 00:00: mouth [place] 00 every 4 Medical (four) Branch hours as needed for Cough. benzonatate 2020-06 Yes [id number] 200mg Take 2 Univers 100 mg 1-29 capsules ity of capsule 00:00: by mouth 2 [place] 00 (two) Medical times Branch daily as needed for Cough. bromphenira 2020-06 Yes [id number] 5mL Take 5 mL Univers mine-pseudo 1-29 by mouth 4 it y of ephedrine-D 00:00: (four) [place] M (BROMFED 00 times Medical DM) 2-30-10 daily as Bran ch mg/5 mL needed for syrup Congestion /Allergies . azelastine 2020-06 Yes [id number] 1{spray Use 1 Univers 137 mcg 1-29 } [place] ity of (0.1 %) 00:00: each [place] nasal spray 00 nostril 2 Med ical (two) Branch times daily. Use in each nostril as directed fluticasone 2020-06 Yes [id number] 1{spray Use 1 Univers propionate 1-29 } [place] in ity o f 50 00:00: each [place] mcg/actuati 00 nostril Medic al on nasal daily. Branch spray guaiFENesin 2020-06 Yes [id number] 400mg Take 1 Univers 400 mg 1-29 tablet by ity of tablet 00:00: mouth [place] 00 every 4 Medical (four) Branch hours as needed for Cough. benzonatate 2020-06 Yes [id number] 200mg Take 2 Univers 100 mg 1-29 capsules ity of capsule 00:00: by mouth 2 [place] 00 (two) Medical times Branch daily as needed for Cough. bromphenira 2020-06 Yes [id number] 5mL Take 5 mL Univers mine-pseudo 1-29 by mouth 4 it y of ephedrine-D 00:00: (four) [place] M (BROMFED 00 times Medical DM) 2-30-10 daily as Bran ch mg/5 mL needed for syrup Congestion /Allergies . azelastine 2020-06 Yes [id number] 1{spray Use 1 Univers 137 mcg 1-29 } [place] ity of (0.1 %) 00:00: each [place] nasal spray 00 nostril 2 Med ical (two) Branch times daily. Use in each nostril as directed fluticasone 2020-06 Yes [id number] 1{spray Use 1 Univers propionate 1-29 } [place] in ity o f 50 00:00: each [place] mcg/actuati 00 nostril Medic al on nasal daily. Branch spray guaiFENesin 2020-06 Yes [id number] 400mg Take 1 Univers 400 mg 1-29 tablet by ity of tablet 00:00: mouth [place] 00 every 4 Medical (four) Branch hours as needed for Cough. benzonatate 2020-06 Yes [id number] 200mg Take 2 Univers 100 mg 1-29 capsules ity of capsule 00:00: by mouth 2 [place] 00 (two) Medical times Branch daily as needed for Cough. bromphenira 2020-06 Yes [id number] 5mL Take 5 mL Univers mine-pseudo 1-29 by mouth 4 it y of ephedrine-D 00:00: (four) [place] M (BROMFED 00 times Medical DM) 2-30-10 daily as Bran ch mg/5 mL needed for syrup Congestion /Allergies . azelastine 2020-06 Yes [id number] 1{spray Use 1 Univers 137 mcg 1-29 } [place] ity of (0.1 %) 00:00: each [place] nasal spray 00 nostril 2 Med ical (two) Branch times daily. Use in each nostril as directed fluticasone 2020-06 Yes [id number] 1{spray Use 1 Univers propionate 1-29 } [place] in ity o f 50 00:00: each [place] mcg/actuati 00 nostril Medic al on nasal daily. Branch spray guaiFENesin 2020-06 Yes [id number] 400mg Take 1 Univers 400 mg 1-29 tablet by ity of tablet 00:00: mouth [place] 00 every 4 Medical (four) Branch hours as needed for Cough. benzonatate 2020-06 Yes [id number] 200mg Take 2 Univers 100 mg 1-29 capsules ity of capsule 00:00: by mouth 2 [place] 00 (two) Medical times Branch daily as needed for Cough. bromphenira 2020-06 Yes [id number] 5mL Take 5 mL Univers mine-pseudo 1-29 by mouth 4 it y of ephedrine-D 00:00: (four) [place] M (BROMFED 00 times Medical DM) 2-30-10 daily as Bran ch mg/5 mL needed for syrup Congestion /Allergies . azelastine 2020-06 Yes [id number] 1{spray Use 1 Univers 137 mcg 1-29 } [place] ity of (0.1 %) 00:00: each [place] nasal spray 00 nostril 2 Med ical (two) Branch times daily. Use in each nostril as directed fluticasone 2020-06 Yes [id number] 1{spray Use 1 Univers propionate 1-29 } [place] in ity o f 50 00:00: each [place] mcg/actuati 00 nostril Medic al on nasal daily. Branch spray guaiFENesin 2020-06 Yes [id number] 400mg Take 1 Univers 400 mg 1-29 tablet by ity of tablet 00:00: mouth [place] 00 every 4 Medical (four) Branch hours as needed for Cough. benzonatate 2020-06 Yes [id number] 200mg Take 2 Univers 100 mg 1-29 capsules ity of capsule 00:00: by mouth 2 [place] 00 (two) Medical times Branch daily as needed for Cough. fluticasone 2020-06 Yes 1{spray 1 [place] by [facility] (FLONASE) 07-07 } Nasal [place] 50 MCG/ACT 00:00: route. of nasal spray 00 Medicin e Pseudoeph-B 2020-06 Yes 5mL Take 5 mL [facility] romphen-DM 07-07 by mouth. Jr ege 00:00: of MG/5ML SYRP 00 Medicin e fluticasone 2020-06 Yes 1{spray 1 [place] by [facility] (FLONASE) 07-07 } Nasal [place] 50 MCG/ACT 00:00: route. of nasal spray 00 Medicin e Pseudoeph-B 2020-06 Yes 5mL Take 5 mL [facility] [place] romphen-DM 129 by mouth. Jr ege 00:00: of MG/5ML SYRP 00 Medicin e fluticasone 2020-06 Yes 1{spray 1 [place] by [facility] (FLONASE) 07-07 } Nasal [facility] 50 MCG/ACT 00:00: route. of nasal spray 00 Medicin e Pseudoeph-B 2020-06 Yes 5mL Take 5 mL B aychago romphen-DM 07-07 by mouth. Jr ege 00:00: of MG/5ML SYRP 00 Medicin e traMADOL 2016-0 Yes 50mg Take 1 Univers (ULTRAM) 50 9-24 tablet by ity of mg tablet 00:00: mouth [place] 00 every 6 Medical (six) Branch hours as needed for Pain (scale 7-10). traMADOL 2017-0 Yes 50mg Take 1 Univers (ULTRAM) 50 9-24 tablet by ity of mg tablet 00:00: mouth [place] 00 every 6 Medical (six) Branch hours as needed for Pain (scale 7-10). traMADOL 2017-0 Yes 50mg Take 1 Univers (ULTRAM) 50 9-24 tablet by ity of mg tablet 00:00: mouth [place] 00 every 6 Medical (six) Branch hours as needed for Pain (scale 7-10). traMADOL 2017-0 Yes 50mg Take 1 Univers (ULTRAM) 50 9-24 tablet by ity of mg tablet 00:00: mouth [place] 00 every 6 Medical (six) Branch hours as needed for Pain (scale 7-10). traMADOL 2017-0 Yes 50mg Take 1 Univers (ULTRAM) 50 9-24 tablet by ity of mg tablet 00:00: mouth [place] 00 every 6 Medical (six) Branch hours as needed for Pain (scale 7-10). traMADOL 2017-0 Yes 50mg Take 1 Univers (ULTRAM) 50 9-24 tablet by ity of mg tablet 00:00: mouth [place] 00 every 6 Medical (six) Branch hours as needed for Pain (scale 7-10). traMADOL 2017-0 Yes 50mg Take 1 Univers (ULTRAM) 50 9-24 tablet by ity of mg tablet 00:00: mouth [place] 00 every 6 Medical (six) Branch hours as needed for Pain (scale 7-10). traMADOL 2017-0 Yes 50mg Take 1 Univers (ULTRAM) 50 9-24 tablet by ity of mg tablet 00:00: mouth [place] 00 every 6 Medical (six) Branch hours as needed for Pain (scale 7-10). Vital Signs Vital Name Observation Time Observation Value Comments Source Systolic blood 2022-03-21 17:16:00 150 mm[Hg] [facility] pressure Medicine Diastolic blood 2022-03-21 17:16:00 94 mm[Hg] [facility] of pressure Medicine Heart rate 2022-03-21 17:16:00 82 /min [facility] ollege of [facility] Body temperature 2022-03-21 17:16:00 36.22 [facility] Respiratory rate 2022-03-21 17:16:00 16 /min [facility] Body height 2022-03-21 17:16:00 172.7 cm [facility] olle of [facility] Body weight 2022-03-21 17:16:[address] [facility] BMI 2022-03-21 17:16:00 30.99 [facility]2 [facility] Oxygen saturation in 2022-03-21 17:16:00 100 /min [facility] Arterial blood by Medicine Pulse oximetry Systolic blood 2022-02-05 18:30:00 142 mm[Hg] [facility] of pressure Medicine Diastolic blood 2022-02-05 18:30:00 80 mm[Hg] [facility] Medicine Heart rate 2022-02-05 18:30:00 96 /min [facility] ollege of [facility] Body temperature 2022-02-05 18:30:00 36.67 [facility] or [facility] Respiratory rate 2022-02-05 18:30:00 16 /min [facility] Body height 2022-02-05 18:30:00 175.3 cm [facility] Body weight 2022-02-05 18:30:00 92.625 kg [facility] BMI 2022-02-05 18:30:00 30.16 kg/m2 [facility] Oxygen saturation in 2022-02-05 18:30:00 97 /min [facility] Arterial blood by Medicine Pulse oximetry Body temperature 2022-01-02 18:49:00 36.28 [facility] or [facility] Respiratory rate 2022-01-02 18:49:00 16 /min [facility] Body height 2022-01-02 18:49:[address] [facility] Body weight 2022-01-02 18:49:[address] [facility] BMI 2022-01-02 18:49:00 30.71 kg/m2 [facility] Oxygen saturation in 2022-01-02 18:49:00 99 /min [facility] Arterial blood by [facility] Pulse oximetry Systolic blood 2022-01-02 18:49:00 149 mm[Hg] [facility] Medicine Diastolic blood 2022-01-02 18:49:00 79 mm[Hg] [facility] Medicine Heart rate 2022-01-02 18:49:00 87 /min [facility] Systolic blood 2021-11-06 17:00:00 144 mm[Hg] Univer sity of pressure [facility] Branch Diastolic blood 2021-11-06 17:00:00 90 mm[Hg] Unive rsity of pressure [facility] Heart rate 2021-11-06 17:00:00 72 /min Universi ty of [facility] Branch Respiratory rate 2021-11-06 17:00:00 16 /min [facility] [place] [facility] Oxygen saturation in 2021-11-06 17:00:00 98 /min [place] of Arterial blood by [facility] Pulse oximetry Branch Body temperature 2021-11-06 14:24:00 36 Lynne [facility] ersity of [facility] Body height 2021-11-06 14:24:00 172.7 cm [facility] Body weight 2021-11-06 14:24:00 88.451 kg [facility] BMI 2021-11-06 14:24:00 29.65 kg/m2 [facility] Systolic blood 2021-10-16 20:21:00 148 mm[Hg] Univer sity of [facility] Diastolic blood 2021-10-16 20:21:00 92 mm[Hg] Unive [facility]ity [facility] Heart rate 2021-10-16 20:18:00 83 /min [facility] Body temperature 2021-10-16 20:18:00 37.39 Lynne Univ [facility] Respiratory rate 2021-10-16 20:18:00 18 /min [facility] Body height 2021-10-16 20:18:00 175.3 cm [facility] Body weight 2021-10-16 20:18:00 89.982 kg [facility] BMI 2021-10-16 20:18:00 29.29 kg/m2 [facility] Oxygen saturation in 2021-10-16 20:18:00 100 /min University of Arterial blood by [facility] Pulse oximetry Branch Systolic blood 2021-06-03 20:08:00 125 mm[Hg] [facility]iver [facility] Diastolic blood 2021-06-03 20:08:00 78 mm[Hg] [facility]ive [facility] Heart rate 2021-06-03 20:08:00 79 /min [facility] Body temperature 2021-06-03 20:08:00 36.78 Lynne [facility] Respiratory rate 2021-06-03 20:08:00 18 /min [facility] Body height 2021-06-03 20:08:00 172.7 cm [facility] Body weight 2021-06-03 20:08:00 92.987 kg [facility] BMI 2021-06-03 20:08:00 31.17 kg/m2 [facility] Oxygen saturation in 2021-06-03 20:08:00 98 /min University of Arterial blood by [facility] jono Pulse oximetry Branch Systolic blood 2021-05-08 01:03:00 169 mm[Hg] [facility] Diastolic blood 2021-05-08 01:03:00 96 mm[Hg] [facility] Heart rate 2021-05-08 01:02:00 71 /min [facility] Respiratory rate 2021-05-08 01:02:00 20 /min [facility] Body height 2021-05-08 01:02:00 172.7 cm [facility] Body weight 2021-05-08 01:02:00 97.659 kg [facility] BMI 2021-05-08 01:02:00 32.74 kg/m2 [facility] Oxygen saturation in 2021-05-08 01:02:00 99 /min University Arterial blood by [facility] Pulse oximetry Branch Procedures Procedure Date / Time Performed Performing Clinician Robert e AMB REF TO SPINE 2022-02-05 13:57:11 [facility] Jr ege of [facility] AMB REF TO PT EXTERNAL 2022-01-02 14:20:[address] [facility] [address] ABDOMEN PELVIS W 2021-11-06 15:49:20 Mejia Aye [facility] CONTRAST [facility] POCT TEST 2021-11-06 15:17:00 Aye Mejia [facility] LIPASE 2021-11-06 15:11:00 [facility] COMP. METABOLIC PANEL 2021-11-06 15:11:00 [place] ([id number]) [facility] CBC WITH DIFF 2021-11-06 15:11:00 [facility] URINALYSIS 2021-11-06 14:37:00 [facility] NOTICE OF PRIVACY 2021-11-06 14:26:59 Doctor Unassigned, No [facility] PRACTICES Name Medical [place] CONSENT/REFUSAL FOR 2021-11-06 14:19:53 Doctor Unassigned, No [facility] DIAGNOSIS AND [facility] Medical Branch TREATMENT POCT MOLECULAR STREP 2021-10-16 20:24:00 Tristan Trejo [facility] ASSIGNMENT OF BENEFITS 2021-10-16 20:13:33 Doctor Unassigned, No [facility] Name Medical Branch [id number] 2019-10-06 00:00:00 [facility] [id number] 2019-10-06 00:00:00 [facility] Plan of Care Planned Activity Planned Date Details Comments Source Future Scheduled 2022-03-22 COVID-19 Vaccine (3 - Ba [facility] Test 10:38:11 Booster for Pfizer Medicine series) [code = COVID-19 Vaccine (3 - Booster for Pfizer series)] Future Scheduled 2022-03-22 FLU VACCINE > 6 MONTHS B [facility] of Test 10:38:11 [code = FLU VACCINE > 6 Medi cine MONTHS] Future Scheduled 2022-03-22 BMI FOLLOW UP PLAN [code [facility] of Test 10:38:11 = BMI FOLLOW UP PLAN] Medici ne Future Scheduled 2022-03-22 TETANUS SHOT (ADULT) [facility] of Test 10:38:11 [code = TETANUS SHOT Medicin e (ADULT)] Future Scheduled 2022-03-22 Hepatitis C screening Ba [facility] of Test 10:38:11 (procedure) [code = Medicine [id number]] Future Scheduled 2022-03-22 Human immunodeficiency B [facility] of Test 10:38:11 virus screening Medicine (procedure) [code = 486320586] Future Scheduled 2022-03-22 Screening for malignant [facility] of Test 10:38:11 neoplasm of cervix Medicine (procedure) [code = 145712946] Future Scheduled 2022-02-06 TETANUS SHOT (ADULT) [facility] of Test 08:40:13 [code = TETANUS SHOT Medicin e (ADULT)] Future Scheduled 2022-02-06 Hepatitis C screening [facility] of Test 08:40:13 (procedure) [code = Medicine [id number]] Future Scheduled 2022-02-06 Human immunodeficiency B [facility] of Test 08:40:13 virus screening Medicine (procedure) [code = 699982778] Future Scheduled 2022-02-06 Screening for malignant [facility] of Test 08:40:13 neoplasm of cervix Medicine (procedure) [code = 052624288] Future Scheduled 2022-02-06 COVID-19 Vaccine (3 - Ba [facility] of Test 08:40:13 Booster for Pfizer Medicine series) [code = COVID-19 Vaccine (3 - Booster for Pfizer series)] Future Scheduled 2022-02-06 FLU VACCINE > 6 MONTHS B [facility] of Test 08:40:13 [code = FLU VACCINE > 6 Medi cine MONTHS] Future Scheduled 2022-02-06 BMI FOLLOW UP PLAN [code [facility] of Test 08:40:13 = BMI FOLLOW UP PLAN] Medici ne Future Scheduled 2022-01-02 TETANUS SHOT (ADULT) [facility] of Test 15:02:18 [code = TETANUS SHOT Medicin e (ADULT)] Future Scheduled 2022-01-02 Hepatitis C screening [facility] of Test 15:02:18 (procedure) [code = Medicine [id number]] Future Scheduled 2022-01-02 Human immunodeficiency B [facility] 15:02:18 virus screening Medicine (procedure) [code = 018346354] Future Scheduled 2022-01-02 Screening for malignant [facility] 15:02:18 neoplasm of cervix Medicine (procedure) [code = 466077288] Future Scheduled 2022-01-02 COVID-19 Vaccine (3 - Ba [facility] Test 15:02:18 Booster for Pfizer Medicine series) [code = COVID-19 Vaccine (3 - Booster for Pfizer series)] Future Scheduled 2022-01-02 FLU VACCINE > 6 MONTHS B [facility] Test 15:02:18 [code = FLU VACCINE > 6 Medi cine MONTHS] Future Scheduled 2022-01-02 BMI FOLLOW UP PLAN [code [facility] Test 15:02:18 = BMI FOLLOW UP PLAN] Medici ne Encounters Start End Encounter Admission Attending Care Care Encounter Source Date/Time Date/Time Type Type Clinicians Facility Department ID 2019-11-16 Inpatient [facility] NIKKO [id number] [facility] 15:52:00 62 [facility] 2019-10-16 Inpatient [facility], [facility] MEDI.01 [id number] [facility] 01:11:00 Sanna 13 [facility] 2019-10-06 Inpatient [facility], [facility] LD [id number] [facility] 00:27:00 Sanna 30 [facility] 2019-09-15 [facility], [facility] ROMAN [id number] [facility] 13:41:00 Sanna 76 [facility] 2019-09-08 [facility], [facility] [id number] [facility] 14:47:00 Sanna 45 [facility] 2019-08-14 Inpatient [facility], [facility] OBANTE [id number] [facility] 17:43:00 Sanna 52 [facility] 2019-07-29 Inpatient [facility], [facility] [id number] [facility] 10:30:00 Sanna 81 [facility] 2019-06-30 [facility], [facility] [id number] [facility] 21:41:00 Sanna 94 [facility] 2022-03-21 2022-03-21 Office Dion Dow [facility] [id number] [facility] 12:00:00 12:45:41 Visit B AMBULATOR 350.1.13.21 College Y 0.2.7.2.[id number] [facility] cecelia 300 e 2022-02-05 2022-02-05 Office DION DOW [facility] [id number] [facility] 13:09:11 14:03:47 Visit AMBULATOR 350.1.13.21 College Y 0.2.7.2.[id number] [facility] cecelia 300 e 2022-01-02 2022-01-02 Office JOSELYN [facility] 1.2.840.114 [id number] [facility] 13:42:17 14:32:53 Visit DEX AMBULATOR 350.1.13.21 College Y 0.2.7.2.[id number] [facility] cecelia 300 e 2021-12-11 2021-12-18 Inpatient ER [facility] Surgery [id number] [facility] 03:34:00 15:16:00 TASHI 2021-12-15 2021-12-15 Outpatient [facility] [id number] [facility] 00:00:00 23:59:00 Chema e of Medicin e 2021-11-06 2021-11-06 [facility] [id number] Univers 09:30:00 13:05:00 AYE lazaro of [facility] 2021-11-06 2021-11-06 [facility] [id number] Univers 09:30:00 13:05:00 Aye SKY 350.1.13.10 i ty of [place] 4.2.7.2.686 [facility] [id number] [place] [address] Branch 2021-11-06 2021-11-06 Orders Doctor ALYSA 1.2.840.114 [id number] Univers 00:00:00 00:00:00 Only Unassigned, ALLI 350.1.13.10 ity of [place] [facility] 4.2.7.2.686 Yogesh [id number] [address] 2021-10-16 2021-10-16 [facility] 1.2.840.114 [id number] Univers 15:20:00 15:40:00 Care [facility] 350.1.13.10 it y of [facility] 4.2.7.2.686 Yogesh as ANN?BLEA [id number] [address] MEDICAL OFFICE [facility] 2021-10-16 2021-10-16 Outpatient R MAYA [facility] [id number] Univers 15:20:00 15:20:00 TRISTAN [facility] 2021-10-16 2021-10-16 Orders Doctor WATT 1.2.840.114 [id number] Univers 00:00:00 00:00:00 Only Unassigned, ALLI 350...10 ity of [place] [facility] 4.2.7.2.686 Yogesh as [id number] [address] 2021-06-03 2021-06-03 Outpatient R SARAH [facility] [id number] Univers 13:20:00 15:39:32 FELIPA hernietta [facility] 2021-06-03 2021-06-03 [facility] [id number] Univers 13:20:00 13:40:00 Care [facility] 350..13.10 it y of [facility] 4.2.7.2.686 Yogesh as ANN?BLEA [id number] [address] MEDICAL OFFICE [facility] 2021-05-07 2021-05-07 Outpatient R MAXIMILIAN [facility] [id number] Univers 19:00:00 19:13:51 LEANN henrietta [facility] 2021-05-07 2021-05-07 [facility]gent [facility] 1.2.840.114 [id number] Univers 18:53:36 19:13:51 Care [facility] 350.1.13.10 it y of [facility] 4.2.7.2.686 Yogesh as ANN?BLEA [id number] [address] MEDICAL OFFICE [facility] 2020-02-04 2020-02-04 Letter ALYSA Cifuentes 1.2.840.114 [id number] 00:00:00 00:00:00 (Out) Yesi CARSON 350.1.13.10 [facility] 4.2.7.2.686 [id number] 2020-02-04 2020-02-04 Letter ALYSA Cifuentes 1.2.840.114 [id number] Univers 00:00:00 00:00:00 (Out) Yesi CARSON 350.1.13.10 it y of [facility] 4.2.7.2.686 Yogesh as [id number] [address] 2020-02-01 2020-02-01 Laboratory Lab, [facility] Fam Pob I [facility] 1.2. 840.114 [id number] Univers 15:55:19 16:15:19 Only [facility] 350.1.13.10 ity [facility] 4.2.7.2.686 Yogesh as Professio [phone] Wa dical [address] Office [facility] 2020-02-01 2020-02-01 Laboratory Lab, [facility] 1.2.840.114 [id number] 15:55:19 16:15:19 Only Fam Pob I Health 350.1.13.10 [place] 4.2.7.2.686 Professio [id number] [address] 2020-02-01 2020-02-01 Outpatient R [facility] [id number] Univers 16:00:00 16:00:00 [facility] Results Test Description Test Time Test Comments Results Result Comments Source BASIC METABOLIC PANEL 2021-12-18 05:11:01 Test Item Value Reference Range Interpretation Comme nts SODIUM (BEAKER) (test code 137 meq/L 136-145 = 381) POTASSIUM (BEAKER) (test 4.4 meq/L 3.5-5.1 code = 379) CHLORIDE (BEAKER) (test 103 meq/L 98-107 code = 382) CO2 (BEAKER) (test code = 25 meq/L 22-29 355) BLOOD UREA NITROGEN 18 mg/dL 7-21 (BEAKER) (test code = 354) CREATININE (BEAKER) (test 0.77 mg/dL 0.57-1.25 code = 358) GLUCOSE RANDOM (BEAKER) 140 mg/dL 70-105 H (test code = 652) CALCIUM (BEAKER) (test code 9.4 mg/dL 8.4-10.2 = 697) EGFR (BEAKER) (test code = 84 mL/min/1.73 sq m ESTIMATED GFR IS NOT 1092) ACCURATE CRE ATININE CLEARANCE IN [place] EDICTING GLOMERULAR FILT RATION RATE. ESTIMATED GFR IS NOT APPLICABLE FOR DIALYSIS PATIENTS. Medical Administrative Assistant ID - RIK LCBC W/PLT COUNT & AUTO [id number] 04:55:58 Test Item Value Reference Range Interpretation Comments WHITE BLOOD CELL COUNT (BEAKER) 14.7 K/ L 3.5-10.5 H (test code = 775) RED BLOOD CELL COUNT (BEAKER) 4.57 M/ L 3.93-5.22 (test code = 761) HEMOGLOBIN (BEAKER) (test code = 12.9 GM/DL 11.2-15.7 410) HEMATOCRIT (BEAKER) (test code = 40.6 % 34.1-44.9 411) MEAN CORPUSCULAR VOLUME (BEAKER) 88.8 fL 79.4-94.8 (test code = 753) MEAN CORPUSCULAR HEMOGLOBIN 28.2 pg 25.6-32.2 (BEAKER) (test code = 751) MEAN CORPUSCULAR HEMOGLOBIN CONC 31.8 GM/DL 32.2-35.5 L (BEAKER) (test code = 752) RED CELL DISTRIBUTION WIDTH 14.3 % 11.7-14.4 (BEAKER) (test code = 412) PLATELET COUNT (BEAKER) (test 324 K/CU MM 150-450 code = 756) MEAN PLATELET VOLUME (BEAKER) 10.1 fL 9.4-12.3 (test code = 754) NUCLEATED RED BLOOD CELLS 0 /100 WBC 0-0 (BEAKER) (test code = 413) NEUTROPHILS RELATIVE PERCENT 85 % (BEAKER) (test code = 429) LYMPHOCYTES RELATIVE PERCENT 8 % (BEAKER) (test code = 430) MONOCYTES RELATIVE PERCENT 7 % (BEAKER) (test code = 431) EOSINOPHILS RELATIVE PERCENT 0 % (BEAKER) (test code = 432) BASOPHILS RELATIVE PERCENT 0 % (BEAKER) (test code = 437) NEUTROPHILS ABSOLUTE COUNT 12.51 K/ L 1.56-6.13 H (BEAKER) (test code = 670) LYMPHOCYTES ABSOLUTE COUNT 1.11 K/ L 1.18-3.74 L (BEAKER) (test code = 414) MONOCYTES ABSOLUTE COUNT (BEAKER) 0.95 K/ L 0.24-0.36 H (test code = 415) EOSINOPHILS ABSOLUTE COUNT 0.02 K/ L 0.04-0.36 L (BEAKER) (test code = 416) BASOPHILS ABSOLUTE COUNT (BEAKER) 0.02 K/ L 0.01-0.08 (test code = 417) IMMATURE GRANULOCYTES-RELATIVE 1 % 0-1 PERCENT (BEAKER) (test code = 2801) FL, FLUORO, NON-SPECIFIC, UP TO 1 [id number] 11:44:00Reason for exam:- >[facility] 1985 Sex: FFINAL REPORT FL, FLUORO, NON-SPECIFIC, UP TO 1 HOUR CLINICAL INDICATION: Lumbar disc herniation COMPARISON: None IMPRESSION: A single lateral view of the lumbar spine is obtained intraoperatively. The surgical screw is seen at the right L5-S1 level posteriorly. Results were communicated to Dr. Dow, who concurred with the above findings. Signed: Parrish Rajan MDReport Verified Date /Time: 12/17/2021 11:44:43 Reading Location: [facility] Radiology Reading Room C METABOLIC [id number] 05:14:37 Test Item Value Reference Range Interpretation Comments SODIUM (BEAKER) 138 meq/L 136-145 (test code = 381) POTASSIUM (BEAKER) 4.2 meq/L 3.5-5.1 (test code = 379) CHLORIDE (BEAKER) 102 meq/L 98-107 (test code = 382) CO2 (BEAKER) (test 30 meq/L 22-29 H code = 355) BLOOD UREA NITROGEN 19 mg/dL 7-21 (BEAKER) (test code = 354) CREATININE (BEAKER) 0.82 mg/dL 0.57-1.25 (test code = 358) GLUCOSE RANDOM 100 mg/dL 70-105 (BEAKER) (test code = 652) CALCIUM (BEAKER) 9.0 mg/dL 8.4-10.2 (test code = 697) EGFR (BEAKER) (test 78 mL/min/1.73 ESTIMA NAHOMY GFR IS code = 1092) sq m NOT ACCURATE CREATININE CLEARANCE IN PREDICTING GLOMERULAR FILTRATION RATE . ESTIMATED GFR I S NOT APPLICABLE FOR DIALYSIS PATIEN TS. Medical Administrative Assistant ID - BENJAMIN WCBC W/PLT COUNT & AUTO [id number] 04:48:53 Test Item Value Reference Range Interpretation Comments WHITE BLOOD CELL COUNT (BEAKER) 11.1 K/ L 3.5-10.5 H (test code = 775) RED BLOOD CELL COUNT (BEAKER) 4.35 M/ L 3.93-5.22 (test code = 761) HEMOGLOBIN (BEAKER) (test code = 12.4 GM/DL 11.2-15.7 410) HEMATOCRIT (BEAKER) (test code = 39.4 % 34.1-44.9 411) MEAN CORPUSCULAR VOLUME (BEAKER) 90.6 fL 79.4-94.8 (test code = 753) MEAN CORPUSCULAR HEMOGLOBIN 28.5 pg 25.6-32.2 (BEAKER) (test code = 751) MEAN CORPUSCULAR HEMOGLOBIN CONC 31.5 GM/DL 32.2-35.5 L (BEAKER) (test code = 752) RED CELL DISTRIBUTION WIDTH 14.5 % 11.7-14.4 H (BEAKER) (test code = 412) PLATELET COUNT (BEAKER) (test 290 K/CU MM 150-450 code = 756) MEAN PLATELET VOLUME (BEAKER) 10.0 fL 9.4-12.3 (test code = 754) NUCLEATED RED BLOOD CELLS 0 /100 WBC 0-0 (BEAKER) (test code = 413) NEUTROPHILS RELATIVE PERCENT 54 % (BEAKER) (test code = 429) LYMPHOCYTES RELATIVE PERCENT 33 % (BEAKER) (test code = 430) MONOCYTES RELATIVE PERCENT 9 % (BEAKER) (test code = 431) EOSINOPHILS RELATIVE PERCENT 3 % (BEAKER) (test code = 432) BASOPHILS RELATIVE PERCENT 1 % (BEAKER) (test code = 437) NEUTROPHILS ABSOLUTE COUNT 6.00 K/ L 1.56-6.13 (BEAKER) (test code = 670) LYMPHOCYTES ABSOLUTE COUNT 3.64 K/ L 1.18-3.74 (BEAKER) (test code = 414) MONOCYTES ABSOLUTE COUNT (BEAKER) 0.96 K/ L 0.24-0.36 H (test code = 415) EOSINOPHILS ABSOLUTE COUNT 0.38 K/ L 0.04-0.36 H (BEAKER) (test code = 416) BASOPHILS ABSOLUTE COUNT (BEAKER) 0.06 K/ L 0.01-0.08 (test code = 417) IMMATURE GRANULOCYTES-RELATIVE 1 % 0-1 PERCENT (BEAKER) (test code = 2801) SARS-COV2/RT-PCR ([facility])2021-12-17 00:36:35 Test Item Value Reference Range Interpretation Comments SARS-COV2/RT-PCR Negative Negative The SARS-Co V-2 target (test code = nucleic acids a re not [id number]) detected in thi s specimen. Negative result s do not preclude SARS-C oV-2 infection and s hould not be used as the laure e basis for patient managem ent decisions. Nega tive results must be combine d with clinical observ ations, patient history , and epidemiological information. A false negativ e result may occur if a spec imen is improperly jr ected, transported or handled. This SARS CoV-2 test is a rapid, real-time RT-PC R test intended for th e qualitative detection of nu cleic acid from SARS-CoV-2 in a nasopharyngeal swab specimen collected from individuals suspected of CO VID-19 by their healthcar e provider. This test has been authorized by FDA under an EUA for use by authorized laboratories. This test is only authorized for the duration of the declaration that circumstances exist justifying the authorization of emergency use of in vitro diagnostic tests for detection and/or diagnosis of COVID-19 under Section 564(b)(1) of the Federal Food, Drug and Cosmetic Act, 21 U.S.C. 360bbb-3(b)(1), unless the authorization is terminated or revoked sooner. Fact Sheet for Healthcare Providers: https://www.[employer]/Documents/Xpert%20Xpress%20SARS%20CoV-2/Fact%20Sheets/302-3802%69GHTZ-KKH-0%20 HEALTHCARE%20PROVIDERS%20FACT%20SHEET.pdf Fact Sheet for Healthcare Patients: https://www.[employer]/Documents/Xpert%20Xp ress%20SARS%20CoV-2/Fact%20Sheets/302-3801%50ZEIH-OMA-0%20PATIENT%20FACT%20SHEET .pdfPREGNANCY SCREEN, [id number] 12:02:43 Test Item Value Reference Range Interpretation Comments TEST URINE (BEAKER) (test Negative Negative code = 583) BASIC METABOLIC [id number] 04:38:33 Test Item Value Reference Range Interpretation Comments SODIUM (BEAKER) 139 meq/L 136-145 (test code = 381) POTASSIUM (BEAKER) 4.2 meq/L 3.5-5.1 (test code = 379) CHLORIDE (BEAKER) 103 meq/L 98-107 (test code = 382) CO2 (BEAKER) (test 29 meq/L 22-29 code = 355) BLOOD UREA NITROGEN 15 mg/dL 7-21 (BEAKER) (test code = 354) CREATININE (BEAKER) 0.74 mg/dL 0.57-1.25 (test code = 358) GLUCOSE RANDOM 100 mg/dL 70-105 (BEAKER) (test code = 652) CALCIUM (BEAKER) 9.3 mg/dL 8.4-10.2 (test code = 697) EGFR (BEAKER) (test 88 mL/min/1.73 ESTIMA NAHOMY GFR IS code = 1092) sq m NOT ACCURATE CREATININE CLEARANCE IN PREDICTING GLOMERULAR FILTRATION RATE . ESTIMATED GFR I S NOT APPLICABLE FOR DIALYSIS CHIARA TS. Medical Administrative Assistant ID - SETH [id number] 04:34:08 Test Item Value Reference Range Interpretation Comments PROTIME (BEAKER) (test 14.9 seconds 11.9-14.2 H code = 759) INR (BEAKER) (test 1.19 See_Comment [Automat ed code = 370) message] The sy stem which generated this result transmitted reference range : <=5.90. The reference range was not used to interpret this result as normal/abnormal . PARTIAL THROMBOPLASTIN 29.0 seconds 22.5-36.0 TIME (BEAKER) (test code = 760) RECOMMENDED COUMADIN/WARFARIN INR THERAPY RANGESSTANDARD DOSE: 2.0 - 3.0 Includes: PROPHYLAXIS for venous thrombosis, systemic embolization; TREATMENT for venous thrombosis and/or pulmonary embolus.HIGH RISK: Target INR is 2.5-3.5 for patients with mechanical heart valves.CBC W/PLT COUNT & AUTO [id number] 04:23:27 Test Item Value Reference Range Interpretation Comments WHITE BLOOD CELL COUNT (BEAKER) 8.9 K/ L 3.5-10.5 (test code = 775) RED BLOOD CELL COUNT (BEAKER) 4.42 M/ L 3.93-5.22 (test code = 761) HEMOGLOBIN (BEAKER) (test code = 12.5 GM/DL 11.2-15.7 410) HEMATOCRIT (BEAKER) (test code = 39.1 % 34.1-44.9 411) MEAN CORPUSCULAR VOLUME (BEAKER) 88.5 fL 79.4-94.8 (test code = 753) MEAN CORPUSCULAR HEMOGLOBIN 28.3 pg 25.6-32.2 (BEAKER) (test code = 751) MEAN CORPUSCULAR HEMOGLOBIN CONC 32.0 GM/DL 32.2-35.5 L (BEAKER) (test code = 752) RED CELL DISTRIBUTION WIDTH 14.2 % 11.7-14.4 (BEAKER) (test code = 412) PLATELET COUNT (BEAKER) (test 280 K/CU MM 150-450 code = 756) MEAN PLATELET VOLUME (BEAKER) 9.8 fL 9.4-12.3 (test code = 754) NUCLEATED RED BLOOD CELLS 0 /100 WBC 0-0 (BEAKER) (test code = 413) NEUTROPHILS RELATIVE PERCENT 62 % (BEAKER) (test code = 429) LYMPHOCYTES RELATIVE PERCENT 26 % (BEAKER) (test code = 430) MONOCYTES RELATIVE PERCENT 9 % (BEAKER) (test code = 431) EOSINOPHILS RELATIVE PERCENT 3 % (BEAKER) (test code = 432) BASOPHILS RELATIVE PERCENT 1 % (BEAKER) (test code = 437) NEUTROPHILS ABSOLUTE COUNT 5.52 K/ L 1.56-6.13 (BEAKER) (test code = 670) LYMPHOCYTES ABSOLUTE COUNT 2.28 K/ L 1.18-3.74 (BEAKER) (test code = 414) MONOCYTES ABSOLUTE COUNT (BEAKER) 0.77 K/ L 0.24-0.36 H (test code = 415) EOSINOPHILS ABSOLUTE COUNT 0.22 K/ L 0.04-0.36 (BEAKER) (test code = 416) BASOPHILS ABSOLUTE COUNT (BEAKER) 0.04 K/ L 0.01-0.08 (test code = 417) IMMATURE GRANULOCYTES-RELATIVE 1 % 0-1 PERCENT (BEAKER) (test code = 2801) RAD, CHEST, 1 VIEW, NON [id number] 14:14:00Reason for exam:- >baselineShould this be performed at the bedside?->Yes [facility] 1985 Sex: FFINAL REPORT INDICATION: baseline COMPARISON: None TECHNIQUE: Single frontal view of the chest. FINDINGS: Lungs and pleura: Clear lungs. No effusion.Heart and mediastinum: Normal heart size. Unremarkable mediastinal contours.Osseous structures: No acute abnormality.Other: None. IMPRESSION: No acute intrathoracic abnormality. Signed: Felicia Mclaughlin MDReport Verified Date/Time: 12/15/2021 14:14:14 HEPATIC FUNCTION [id number] 05:23:41 Test Item Value Reference Range Interpretation Comments TOTAL PROTEIN (BEAKER) (test code = 7.0 gm/dL 6.0-8.3 770) ALBUMIN (BEAKER) (test code = 1145) 4.1 g/dL 3.5-5.0 BILIRUBIN TOTAL (BEAKER) (test code 0.3 mg/dL 0.2-1.2 = 377) BILIRUBIN DIRECT (BEAKER) (test 0.1 mg/dL 0.1-0.5 code = 706) ALKALINE PHOSPHATASE (BEAKER) (test 43 U/L 40-150 code = 346) AST (SGOT) (BEAKER) (test code = 22 U/L 5-34 353) ALT (SGPT) (BEAKER) (test code = 27 U/L 6-55 347) Medical Administrative Assistant ID - PICARLOS LBASIC METABOLIC [id number] 05:23:40 Test Item Value Reference Range Interpretation Comments SODIUM (BEAKER) 139 meq/L 136-145 (test code = 381) POTASSIUM (BEAKER) 4.6 meq/L 3.5-5.1 (test code = 379) CHLORIDE (BEAKER) 106 meq/L 98-107 (test code = 382) CO2 (BEAKER) (test 26 meq/L 22-29 code = 355) BLOOD UREA NITROGEN 15 mg/dL 7-21 (BEAKER) (test code = 354) CREATININE (BEAKER) 0.80 mg/dL 0.57-1.25 (test code = 358) GLUCOSE RANDOM 166 mg/dL 70-105 H (BEAKER) (test code = 652) CALCIUM (BEAKER) 9.7 mg/dL 8.4-10.2 (test code = 697) EGFR (BEAKER) (test 81 mL/min/1.73 ESTIMA NAHOMY GFR IS code = 1092) sq m NOT ACCURATE CREATININE CLEARANCE IN PREDICTING GLOMERULAR FILTRATION RATE . ESTIMATED GFR I S NOT APPLICABLE FOR DIALYSIS PATIEN TS. Medical Administrative Assistant ID - PIAYA LCBC W/PLT COUNT & AUTO [id number] 04:43:17 Test Item Value Reference Range Interpretation Comments WHITE BLOOD CELL COUNT (BEAKER) 6.5 K/ L 3.5-10.5 (test code = 775) RED BLOOD CELL COUNT (BEAKER) 4.24 M/ L 3.93-5.22 (test code = 761) HEMOGLOBIN (BEAKER) (test code = 11.8 GM/DL 11.2-15.7 410) HEMATOCRIT (BEAKER) (test code = 38.4 % 34.1-44.9 411) MEAN CORPUSCULAR VOLUME (BEAKER) 90.6 fL 79.4-94.8 (test code = 753) MEAN CORPUSCULAR HEMOGLOBIN 27.8 pg 25.6-32.2 (BEAKER) (test code = 751) MEAN CORPUSCULAR HEMOGLOBIN CONC 30.7 GM/DL 32.2-35.5 L (BEAKER) (test code = 752) RED CELL DISTRIBUTION WIDTH 14.5 % 11.7-14.4 H (BEAKER) (test code = 412) PLATELET COUNT (BEAKER) (test 262 K/CU MM 150-450 code = 756) MEAN PLATELET VOLUME (BEAKER) 9.9 fL 9.4-12.3 (test code = 754) NUCLEATED RED BLOOD CELLS 0 /100 WBC 0-0 (BEAKER) (test code = 413) NEUTROPHILS RELATIVE PERCENT 92 % (BEAKER) (test code = 429) LYMPHOCYTES RELATIVE PERCENT 7 % (BEAKER) (test code = 430) MONOCYTES RELATIVE PERCENT 1 % (BEAKER) (test code = 431) EOSINOPHILS RELATIVE PERCENT 0 % (BEAKER) (test code = 432) BASOPHILS RELATIVE PERCENT 0 % (BEAKER) (test code = 437) NEUTROPHILS ABSOLUTE COUNT 6.00 K/ L 1.56-6.13 (BEAKER) (test code = 670) LYMPHOCYTES ABSOLUTE COUNT 0.46 K/ L 1.18-3.74 L (BEAKER) (test code = 414) MONOCYTES ABSOLUTE COUNT (BEAKER) 0.04 K/ L 0.24-0.36 L (test code = 415) EOSINOPHILS ABSOLUTE COUNT 0.00 K/ L 0.04-0.36 L (BEAKER) (test code = 416) BASOPHILS ABSOLUTE COUNT (BEAKER) 0.01 K/ L 0.01-0.08 (test code = 417) IMMATURE GRANULOCYTES-RELATIVE 0 % 0-1 PERCENT (BEAKER) (test code = 2801) SARS-COV2/RT-PCR ([facility])2021-12-12 02:29:42 Test Item Value Reference Range Interpretation Comments SARS-COV2/RT-PCR (test code = Negative Negative 3949850) Negative result for this test determines that SARS-CoV-2 RNA was not present in the specimen above the Limit of Detection (LOD). However, Negative results do not preclude SARS-CoV-2 infection and should not be used as the sole basis for treatment or patient management decisions. Negative results must be combined with clinical observations, patient history, and epidemiological information. A false negative result may occur if a specimen is improperly collected, transported, or handled. A false negative result should be considered if patient's recent exposures or clinical presentation indicate that COVID-19 (SARS-CoV-2) is likely and diagnostic tests for other causes of illness are negative. Re-testing should be considered in cases of suspected false negatives.The limit of detection for this assay is 100 copies/mL.This SARS-CoV-2 test is a real-time RT_PCR test intended for the qualitative detection of nucleic acid from SARS-CoV-2 in a nasopharyngeal swab specimen collected from individuals suspected of COVID-19 by their healthcare provider.This test has not been Food and Drug Administration (FDA) cleared or approved. This is a modified version of an approved Emergency Use Authorization (EUA) and is in the process of review by the FDA. Once authorized by the FDA, the issued EUA will be effective until the declaration that circumstances exist justifying the authorization of the emergency use of in vitro diagnostic tests for detection and/or diagnosis of COVID-19 is terminated under Section 564(b)(2) of the Act or the EUA is revoked under Section 564(g) of the Act.Testing was performed using t madiha [employer] SARS-CoV-2 assay.Fact Sheet for Healthcare Providers:https://www.BarkBox.kaufman/major/RT SARS-CoV-2 HCP Fact Sheet 51- 878861.pdfFact Sheet for Healthcare Patients:https://www.BarkBox.kaufman/major/RT SARS-CoV-2 Patient Fact Sheet EN 51-189220J3.pdfMR, SPINE, LUMBAR, WITHOUT [id number] 09:13:00Unlisted Reason for Exam - Click Yes and Enter Reason Below->YesUnlisted Reason for Exam->DischerniationDoes the patient have an implanted electronic device?->No [facility] 1985 Sex: FFINAL REPORT MR, SPINE, LUMBAR, WITHOUT CONTRAST INDICATION: Unlisted Reason for ExamDisc herniation COMPARISON: None TECHNIQUE: Multiplanar, multisequence MR images of the lumbar spine without contrast. FINDINGS: For the purposes of this dictation, the 5 lowermost nonrib-bearing lumbar-type vertebral bodies are labeled L1-L5.Alignment of the lumbar spine is within normal limits. Vertebral body height is maintained. Degenerative edema at the inferior L5 and superior S1 vertebralbodies.Small Schmorl's nodes at the superior L2 and L3 endplates. No spinal cord signal abnormality identified.Cauda equina demonstrates normal appearance.No acute findings in the paraspinal soft tissues. Evaluation of the individual levels demonstrates: L1/L2: Symmetric disc bulge without significantspinal canal or neural foraminal stenosis.L2/L3: Symmetric disc bulge without significant spinal canal or neural foraminal stenosis.L3/L4: No significant canal or foraminal narrowing.L4/L5: Small annular fissure. Symmetric disc bulge without significant spinal canal or neural foraminal stenosis.L5/S1:Right subarticular disc protrusion contacting the exiting right L5 nerve root. Facet arthropathy with moderate right neural foraminal stenosis IMPRESSION: 1.Large right subarticular disc protrusion at L5-S1 contacting the exiting L5 nerve root and causing moderate right neural foraminal stenosis.2.Small annular fissure at L4-L5. 3.Degenerative edema at the inferior L5 and superior S1 endplates.. Signed: Parrish Rajan MDReport Verified Date/Time: 12/11/2021 09:13:09 Reading Location: [address] Neuro Reading Room [facility]. METABOLIC PANEL (84068)2021-11-06 16:06:35 Test Item Value Reference Range Interpretation Comments NA (test code = 138 mmol/L 135-145 4542078832) K (test code = 4.2 mmol/L 3.5-5.0 1235034321) CL (test code = 102 mmol/L 98-108 0218354542) CO2 TOTAL (test code = 26 mmol/L 23-31 5259825113) AGAP (test code = 2-16 7300976343) BUN (test code = 6 mg/dL 7-23 L 4238283595) GLUCOSE (test code = 116 mg/dL 70-110 H 1189453650) CREATININE (test code = 0.62 mg/dL 0.50-1.04 6382876826) TOTAL BILI (test code = 0.7 mg/dL 0.1-1.3 7594856145) CALCIUM (test code = 9.5 mg/dL 8.6-10.6 3591912404) T PROTEIN (test code = 7.2 g/dL 6.3-8.2 6141996823) ALBUMIN (test code = 4.4 g/dL 3.5-5.0 0342158659) ALK PHOS (test code = 67 U/L 34-122 2635663815) ALTv (test code = 15 U/L 5-35 1742-6) AST(SGOT) (test code = 22 U/L 13-40 9690155000) eGFR (test code = mL/min/1.73m2 9190386122) TONY (test code = TONY) Association of Glomerular Filtration Rate (GFR) and Staging of Kidney Disease* + --+ --+ ------+| GFR (mL/min/1.73 m2) ?| With Kidney Damage ?| ?Without Kidney Damage+ --------+ --------+ +| ?>90 ?| ?Stage one ?| ? Normal ?+ ---+ ---+ -------+| ?60-89 ?| ?Stage two ?| ? Decreased GFR ? + --+ --+ ------+| ?30-59 ?| ?Stage three ?| ? Stage three ? + --+ --+ ------+| ?15-29 ?| ?Stage four ? | ? Stage four ?+ ---+ ---+ -------+| ?<15 (or dialysis) ? ?| ?Stage five ? | ? Stage five ?+ ---+ ---+ -------+ *Each stage assumes the associated GFR level has been in effect for at least three months. ?Stages 1 to 5, with or without kidney disease, indicate chronic kidney disease. Notes: Determination of stages one and two (with eGFR >59mL/min/1.73 m2) requires estimation of kidney damage for at least three months as defined by structural or functional abnormalities of the kidney, manifested by either:Pathological abnormalities or Markers of kidney damage (including abnormalities in the composition of the blood or urine or abnormalities in imaging tests). Lab Interpretation Abnormal (test code = 56883-2) [facility]15 Test Item Value Reference Range Interpretation Comments LIPASE (test code = 4734215067) 41 U/L 0-220 Lab Interpretation (test code = Normal 48280-4) [facility] WITH [id number] 15:51:56 Test Item Value Reference Range Interpretation Comments WBC (test code = See_Comment [Automated message] 6690-2) The system [employer] generated this result transmitted ref erence range: 4.30 - 1 1.10 10*3/?L. The re ference range was not u sed to interpret this result as normal/abnor mal. RBC (test code = See_Comment [Automated message] 789-8) The system [employer] generated this result transmitted ref erence range: 3.93 - 5 .25 10*6/?L. The re ference range was not u sed to interpret this result as normal/abnor mal. HGB (test code = 12.6 g/dL 11.6-15.0 718-7) HCT (test code = 38.2 % 35.7-45.2 4544-3) MCV (test code = 85.3 fL 80.6-95.5 787-2) MCH (test code = 28.1 pg 25.9-32.8 785-6) MCHC (test code = 33.0 g/dL 31.6-35.1 786-4) RDW-SD (test code 44.0 fL 39.0-49.9 = 07698-8) RDW-CV (test code 14.1 % 12.0-15.5 = 788-0) PLT (test code = See_Comment [Automated message] 777-3) The system [employer] generated this result transmitted ref erence range: 166 - 35 8 10*3/?L. The re ference range was not u sed to interpret this result as normal/abnor mal. MPV (test code = 10.0 fL 9.5-12.9 08059-7) NRBC/100 WBC (test See_Comment [Automat ed message] code = 2144118247) The syste m which generated this result transmitted ref erence range: 0.0 - 10 .0 /100 WBCs. The refer ence range was not u sed to interpret this result as normal/abnor mal. NRBC x10^3 (test <0.01 See_Comment [Automated message] code = 1908564902) The syste m which generated this result transmitted ref erence range: 10*3/?L. The reference range was not used to interpr et this result as normal/abnormal . GRAN MAT (NEUT) % 72.0 % (test code = 770-8) IMM GRAN % (test 0.40 % code = 4248047292) LYMPH % (test code 21.6 % = 736-9) MONO % (test code 4.9 % = 5905-5) EOS % (test code = 0.7 % 713-8) BASO % (test code 0.4 % = 706-2) GRAN MAT 4.82 10*3/uL 1.88-7.09 x10^3(ANC) (test code = 7109322193) IMM GRAN x10^3 0.03 10*3/uL 0.00-0.06 (test code = 0721286565) LYMPH x10^3 (test 1.45 10*3/uL 1.32-3.29 code = 731-0) MONO x10^3 (test 0.33 10*3/uL 0.33-0.92 code = 742-7) EOS x10^3 (test 0.05 10*3/uL 0.03-0.39 code = 711-2) BASO x10^3 (test 0.03 10*3/uL 0.01-0.07 code = 704-7) [facility] [id number] 15:17:00 Test Item Value Reference Range Interpretation Comments POCT PREG (test code = 1605) negative On board controls acceptable with present C Line (test code = 3574) POCT PREG LOT # (test code = 3575) [id number] POCT PREG TEST DATE (test 04/08/2023 code = 3576) Lab Interpretation (test code = Normal 93446-0) [facility] MOLECULAR [id number] 20:28:21 Test Item Value Reference Range Interpretation Comments POCT Molecular Strep (test code = Positive Negative A 37021-5) Lab Interpretation (test code = Abnormal 26420-3) [facility]DR[facility] [id number] 20:44:00 Test Item Value Reference Range Interpretation Comments [...] BENZU) 150 ng/mL UR OPIATES QUAL (test NEGATIVE NEGATIVE DETECT ION CUT OFF: code = OPIAQLU) 100 ng/mL UR PHENCYCLIDINE (PCP) NEGATIVE NEGATIVE DETEC TION CUT OFF: (test code = PHENCU) 25 ng/m L COMPREHENSIVE METABOLIC [id number] 16:55:00 Test Item Value Reference Range Interpretation [...] units/L 46-116 N code = ALKP) URIC [id number] 16:55:00 Test Item Value Reference Range Interpretation Comments URIC ACID (test code = URIC) 6.2 mg/dL 2.6-6.0 H LACTIC DEHYDROGENASE(LDH)2019-11-16 16:55:00 Test Item Value Reference Range Interpretation Comments LACTIC DEHYDROGENASE(LDH) (test 160 units/L 81-234 N code = LDH) UA RFLX MICR CULT IF [id number] 16:41:00 Test Item Value Reference Range Interpretation [...] SEEN Indication for culture: Suprapubic PainCBC W/AUTO [id number] 16:35:00 Test Item Value Reference Range Interpretation [...] NORMAL code = PLTMR) Coronavirus 2019 nCoV [id number] 11:09:00 Test Item Value Reference Range Interpretation Comments Coronavirus 2019 nCoV Negative Negative RESUL TS CALLED TO Bedside (test code = Adesuyi ,AREAD BACK & [id number]) CONFIRMED? yes BY F.LAB.MAF1 02/26 1109 This result fountain s not [...] PERFORMED UNDER AN EMERGENCY USE AUTHORIZATION F [facility] COMPREHENSIVE METABOLIC [id number] 07:48:00 Test Item Value Reference Range Interpretation [...] 81 units/L 46-116 N code = ALKP) [id number] 07:48:00 Test Item Value Reference Range Interpretation Comments MAGNESIUM (test code = MAG) 2.7 mg/dL 1.8-2.4 H CBC W/AUTO [id number] 07:08:00 Test Item Value Reference Range Interpretation [...] NORMAL NORMAL code = PLTMR) B-TYPE NATRIURETIC [id number] 00:38:00 Test Item Value Reference Range Interpretation Comments B-TYPE NATRIURETIC PEPTIDE (test 542.13 pg/mL 0-100 H code = BNP) Comments to Surgery Scheduler: Clean CatchSpecimen Comment: Clean Catch- CT HEAD/BRAIN W/O [id number] 00:31:00 Patient Name: FELICIA MCCANN Unit No: [id number] EXAMS: CPT CODE: [id number] CT HEAD/BRAIN W/O CONT 37794 CT HEAD WITHOUT CONTRAST DATED 10/16/2019. INDICATION: headache. Hypertension. COMPARISON: None. A CT of the head was performed using thin slice noncontrast axial images with subsequent sagittal and coronal reconstruction. CT imaging performed at this location utilizes radiation dose optimization techniques which include one or more of the followin) Automated exposure control; 2) Adj ustment of mA and/or kV; 3) Use of iterative reconstructive technique. CT radiation dose DLP (mGy-cm): 1012. FINDINGS: Examination of the intracranial structures reveals no acute abnormal areas of increased or decreased density. Rod-white differentiation appears preserved. The ventricular system is normal in size and configuration without midline shift. No intra or extra-axial masses or fluid collections [...] intracranial mass. SL: 131 at 0031 Reported andsigned by: Jaiden Durham MD [facility] NAME: FELICIA MCCANN Radiology Department PHYS: Gian Kang [address] : 1985 AGE: 33 SEX: F [place], [place] [address] LOC: Laurence.ERS PHONE #: [phone] EXAM DATE: 10/15/2019 STATUS: REG ER FAX#: [phone] RAD NO: Page 1 Signed Report 1 Patient Name: FELICIA MCCANN Unit No: [id number] EXAMS: CPT CODE: [id number] CT HEAD/BRAIN W/O CONT 31484 (Continued) CC: Sanna Hoffman Technologist: ROB RAO, CT, RT CTDI: 60.16 DLP: 1012.10 Trnscrbd D/ (0031) [facility] NAME: FELICIA MCCANN Radiology Department PHYS: Gian Kang [address] : 1985 AGE: 33 SEX: F [place] [address] LOC: DonovanERS PHONE #:[phone] EXAM DATE: 10/15/2019 STATUS: REG ER FAX #: [phone] RAD NO: Page 2 Signed Report 1 Patient Name: FELICIA MCCANN Unit No: [id number] EXAMS: CPT CODE: [id number] CT HEAD/BRAIN W/O CONT 38561 (Continued) Orig Print D/T: S: 10/16/2019 (0034) [facility] NAME: FELICIA MCCANN Radiology Department PHYS: Gian Kang [address] : 1985 AGE: 33 SEX: F [place] [address] LOC: Laurence.ERS PHONE #: [phone] EXAM DATE: 10/15/2019STATUS: REG ER FAX #: [phone] RAD NO: Page 3 Signed Report 1UR PROTEIN/CREATININE [id number] 00:23:00 Test Item Value Reference Range Interpretation Comments UR PROTEIN RANDOM (test code = 14.0 mg/dL PROTU) UR CREATININE RANDOM (test 74.0 mg/dL code = CREATU) PROTEIN/CREATININE RATIO (test 180.0 mg/gcrea <200 code = P/CRATIO) - XR CHEST 2 [id number] 00:16:00 Patient Name: FELICIA MCCANN Unit No: [id number] EXAMS: CPT CODE: [id number] XR CHEST 2 V 43618 EXAM: CR, XR chest 2 views: 10/15/2019, 2354 hours HISTORY: CHEST PAIN TECHNIQUE: Frontal and lateral chestradiographs are obtained. COMPARISON: None available. FINDINGS: Trachea is in midline. Heart is normal in size. Mild interstitial opacities in the right infrahilar lung.. No airspace consolidation, pneumothorax or pleural effusion is seen. Osseous structures are unremarkable. IMPRESSION: Mild interstitial opacities in the right infrahilar lung, probably vascular crowding or less likely atelectasis orinterstitial infiltrates. SL:[JSYED-H] at 0016 Reported and signed by: Garrett Cabezas M.D. CC: Sanna Hoffman Technologist: RT Jarocho Trnscrbd D/ (0016) t.JS38 Orig Print D/T: S: 10/16/2019 (0019) [facility] NAME: FELICIA MCCANN Radiology Department PHYS: Gian Kang [address] : 1985 AGE: 33 SEX: F [place], [place] [address] LOC: F.ERS PHONE #: [phone] EXAM DATE: 10/15/2019 STATUS: REG ER FAX #: [phone] RAD NO: Page 1 Signed ReportDRUGS OF ABUSE [id number] 00:05:00 Test Item Value Reference Range Interpretation [...] ECHO .READ BACK & CONFIRME D? Y.BY [facility] 10/15/192358. DETECTION CUT O FF: 100 ng/mLPrevio usly reported result : POSITIVE Edited by: [facility] on 10/16/19:0005OP IAQLU prev. reported as:POSITIVE H . RESULTS CALLED TO .. READ BACK & CONFIRMED? Y. B Y [facility] 10/14. UR PHENCYCLIDINE (PCP) NEGATIVE NEGATIVE DETEC TION CUT OFF: (test code = PHENCU) 25 ng/m L Comments to Surgery Scheduler: Clean CatchSpecimen Comment: Clean CatchDRUGS OF ABUSE [id number] 00:04:00 Test Item Value Reference Range Interpretation [...] = OPIAQLU) .READ BACK & CONFIRMED? Y.BY [facility] 10/14. DETECTION CUT OFF: 100 ng/mL UR PHENCYCLIDINE (PCP) NEGATIVE NEGATIVE DETEC TION CUT OFF: (test code = PHENCU) 25 ng/m L Comments to Surgery Scheduler: Clean CatchSpecimen Comment: Clean CatchCOMPREHENSIVE METABOLIC [id number] 23:58:00 Test Item Value Reference Range Interpretation [...] 46-116 N code = ALKP) Comments to Surgery Scheduler: Clean CatchSpecimen Comment: Clean CatchCREATINE KINASE (CK)2019-10-15 23:58:00 Test Item Value Reference Range Interpretation Comments CREATINE KINASE (CK) (test code = 81 Units/L 26-192 N CK) Comments to Surgery Scheduler: Clean CatchSpecimen Comment: Clean CatchLIPASE 2019-10-15 23:58:00 Test Item Value Reference Range Interpretation Comments LIPASE (test code = LIP) 48 units/L 73-393 L Comments to Surgery Scheduler: Clean CatchSpecimen Comment: Clean CatchMAGNESIUM 2019-10-15 23:58:00 Test Item Value Reference Range Interpretation Comments MAGNESIUM (test code = MAG) 1.7 mg/dL 1.8-2.4 L Comments to Surgery Scheduler: Clean CatchSpecimen Comment: Clean CatchTHYROID STIMULATING [id number] 23:58:00 Test Item Value Reference Range Interpretation Comments THYROID STIMULATING 0.77 0.36-3.74 N Test Per formed in HORMONE (test code = MicroIn ternational Units/mL TSH) Comments to Surgery Scheduler: Clean CatchSpecimen Comment: Clean CatchTROPONIN-I 2019-10-15 23:58:00 Test Item Value Reference Range Interpretation Comments TROPONIN-I (test code = TROPI) 0.043 ng/mL <0.056 N Comments to Surgery Scheduler: Clean CatchSpecimen Comment: Clean CatchPROTHROMBIN [id number] 23:41:00 Test Item Value Reference Range Interpretation Comments PROTHROMBIN TIME PATIENT (test code 10.8 secs 10.4-12.4 N = PTP) Comments to Surgery Scheduler: Clean CatchSpecimen Comment: Clean CatchIS PATIENT ON ANTICOAGULANTS ? NINTERNATIONAL NORMAL [id number] 23:41:00 Test Item Value Reference Range Interpretation Comments INTERNATIONAL NORMAL 1.00 The INR is to be used RATIO (test code = INR) only for monitoring oral anticoagulantth erapy. INDICATION INR VALUE 1. Prophylaxis inc luding high risk surge ry 2.0 - 2.52. Deep veno us thrombosis. Pul monary embolism. Atria l fibrillation or bioprosthetic h eart valves 2.0 - 3. 03. Mechanical hear t valves or recurrent sy stemic embolism. 3.0 - 3.5 Comments to Surgery Scheduler: Clean CatchSpecimen Comment: Clean CatchIS PATIENT ON ANTICOAGULANTS ? NTHROMBOPLASTIN TIME [id number] 23:41:00 Test Item Value Reference Range Interpretation Comments THROMBOPLASTIN TIME PARTIAL (test 30.1 secs 22-38 N code = PTT) Comments to Surgery Scheduler: Clean CatchSpecimen Comment: Clean CatchIS PATIENT ON ANTICOAGULANTS ? ND-DIMER [id number] 23:41:00 Test Item Value Reference Range Interpretation Comments D-DIMER QUANT 544 ng/mLDDU <255 H Reference Ran ge in (test code = : <570 DDIMER) ng/ml A positive test d oes not provide a defin itive diagnosis ofDVT and indicates the n eed for follow up clini jono studies. The pr edictive value of a nega tive test is 98% for rulingout DVT. Comments to Surgery Scheduler: Clean CatchSpecimen Comment: Clean CatchIS PATIENT ON ANTICOAGULANTS ? NUA RFLX MICR CULT IF [id number] 23:36:00 Test Item Value Reference Range Interpretation [...] = MUCU) RARE NONE SEEN Comments to Surgery Scheduler: Clean CatchSpecimen Comment: Clean CatchIndication for culture: Dysuria/FrequencyCBC W/AUTO [id number] 23:29:00 Test Item Value Reference Range Interpretation [...] NORMAL NORMAL code = PLTMR) Comments to Surgery Scheduler: Clean CatchSpecimen Comment: Clean CatchFALLOPIAN TUBE,[id number] 13:52:00 RUN DATE: 10/08/19 [facility] PAGE 1 RUN TIME: 1734 Specimen Inquiry RUN USER: INTERFACE -PATIENT: FELICIA MCCANN LOC: SOL U #: [id number] AGE/SX: 33/F ROOM: [facility] RE10/06/19REG DR: Sanna Hoffman MD : [birth year] BED: A DIS: STATUS: ADM IN TLOC: SPEC #: [id number] RECD: 10/07/19-1010 STATUS: BRENDA REQ #: [id number] JR: 10/07/19- SUBM DR: Sanna Hoffman MD ENTERED: 10/07/19-1 SP TYPE: FALLBX OTHR DR: ORDERED: LEVEL IV CODES: [id number] - FALLOPIAN TUBE PROCEDURES: LEVEL IV (Incom plete) TISSUES: FALLOPIAN TUBE, NOS - RIGHT AND LEFT FALLOPIAN TUBE CLINICAL HISTORY Not provided (wpd) FINAL DIAGNOSIS Right fallopian tube, tubal ligation: - fallopian tube with complete surgical transection, no pathologic alteration Left fallopian tube, tubal ligation: - fallopian tube with complete surgical transection, no pathologic alteration CPT code(s): 32260 x2 pkg/kr GROSS DESCRIPTION ANATOMIC SOURCE OF TISSUE (per Requisition): Right and left fallopian tubes (received in 2 containers) Each specimen is labeled with the patient's name and medical record number. Specimen #1 is designated "right fallopian tube" and consists of a 5.5 cm in length and 0.6 cm in diameter fimbriated fallopian tube. The serosa is pink-purple and hyperemic. The lumen is pinpoint. Photographic Equipment Mechanic sections are submitted as A1. Specimen #2 is designated "left fallopian tube" and consists of a 4.5 cm in length and 0.6 cm in diameter fimbriated fallopian tube. The serosa is pink-purple and hyperemic. The lumen is pinpoint. Photographic Equipment Mechanic sections are submitted as B1. jm/wpd 10/07/19 CONTINUED ON NEXT PAGE --- ---------RUN DATE: 10/08/19 [facility] PAGE 2 RUN TIME: 8520 Specimen Inquiry RUN USER: INTERFACE SP EC #: [id number]: FELICIA MCCANN #[id number] (Continued) MICROSCOPIC DESCRIPTION Specimen #1 - the fallopian tube architecture is intact. The lumen is not dilated. A completely transected segment of fallopian tube is present. Specimen #2 - the fallopian tube architecture is intact. The lumen is not dilated. A completely transected segment of fallopian tube is present. kaylene/roger Signed Tiny Jurado 10/08/19 1352 END OF REPORT HGB [id number] 05:07:00 Test Item Value Reference Range Interpretation Comments HEMOGLOBIN (test code = HGB) 9.3 g/dL 10.7-13.9 L HEMATOCRIT (test code = HCT) 28.3 % 32.1-42.1 L Coronavirus 2019 nCoV [id number] 16:02:00 Test Item Value Reference Range Interpretation Comments Coronavirus 2019 nCoV Negative Negative RESUL TS CALLED TO Bedside (test code = BERENICE/A PUREAD BACK & [id number]) CONFIRMED? CHAI ManLAB.GF 10/06/19 1602 T his [...] PERFORMED UNDER AN EMERGENCY USE AUTHORIZATION F ROM FDA AG HEPATITIS B [id number] 07:07:00 Test Item Value Reference Range Interpretation Comments AG HEPATITIS B SURFACE (test code NONREACTIVE NONREACTIVE = HBSAG) AB HEPATITIS C [id number] 07:07:00 Test Item Value Reference Range Interpretation Comments AB HEPATITIS C (test code = NONREACTIVE NONREACTIVE HCVAB) SIGNAL TO CUTOFF (test code = 0.13 <0.80 N CUTOFF) AB [id number] 07:07:00 Test Item Value Reference Range Interpretation Comments AB TREPONEMA (test code = TREPAB) NONREACTIVE NONREACTIVE AG HEPATITIS B [id number] 06:50:00 Test Item Value Reference Range Interpretation Comments AG HEPATITIS B SURFACE (test code NONREACTIVE NONREACTIVE = HBSAG) AB HEPATITIS C [id number] 06:50:00 Test Item Value Reference Range Interpretation Comments AB HEPATITIS C (test code = HCVAB) NONREACTIVE SIGNAL TO CUTOFF (test code = CUTOFF) <0.80 AB [id number] 06:50:00 Test Item Value Reference Range Interpretation Comments AB TREPONEMA (test code = TREPAB) NONREACTIVE NONREACTIVE CBC W/AUTO [id number] 02:32:00 Test Item Value Reference Range Interpretation [...] (test NORMAL NORMAL code = PLTMR) URINALYSIS [id number] 23:53:00 Test Item Value Reference Range Interpretation [...] = MUCU) 4+ NONE SEEN Comments to Surgery Scheduler: CORETTA RICHARDSON SAMPLE: CLEAN [id number] 14:53:00 Test Item Value Reference Range Interpretation Comments CREATININE (test code = CREAT) 0.9 mg/dL 0.5-1.0 N SGOT/[id number] 14:53:00 Test Item Value Reference Range Interpretation Comments SGOT/AST (test code = AST) 46 units/L 15-37 H SGPT/[id number] 14:53:00 Test Item Value Reference Range Interpretation Comments SGPT/ALT (test code = ALT) 39 units/L 12-78 N URINALYSIS [id number] 14:28:00 Test Item Value Reference Range Interpretation [...] SEEN URINE SAMPLE: CLEAN CATCHComment MACCBC W/AUTO [id number] 14:24:00 Test Item Value Reference Range Interpretation [...] NORMAL NORMAL code = PLTMR) URINALYSIS W/O [id number] 16:36:00 Test Item Value Reference Range Interpretation Comments UA GLUCOSE DIPSTICK (test code = NEGATIVE NEGATIVE DGLUU) UA KETONE DIPSTICK (test code = TRACE NEGATIVE KETU) UA PROTEIN DIPSTICK (test code = NEGATIVE NEGATIVE PROU) IS NURSE PERFORMING TEST? SHAMEKA PROTEIN/CREATININE [id number] 16:36:00 Test Item Value Reference Range Interpretation Comments UR PROTEIN RANDOM (test code = 37.6 mg/dL PROTU) UR CREATININE RANDOM (test 290.4 mg/dL code = CREATU) PROTEIN/CREATININE RATIO (test 120.0 mg/gcrea <200 code = P/CRATIO) IS NURSE PERFORMING TEST? [id number] 16:16:00 Test Item Value Reference Range Interpretation Comments CREATININE (test code = CREAT) 0.7 mg/dL 0.5-1.0 N SGOT/[id number] 16:16:00 Test Item Value Reference Range Interpretation Comments SGOT/AST (test code = AST) 15 units/L 15-37 N SGPT/[id number] 16:16:00 Test Item Value Reference Range Interpretation Comments SGPT/ALT (test code = ALT) 16 units/L 12-78 N CBC W/AUTO [id number] 15:58:00 Test Item Value Reference Range Interpretation [...] NORMAL NORMAL code = PLTMR) URINALYSIS W/O [id number] 15:43:00 Test Item Value Reference Range Interpretation Comments UA GLUCOSE DIPSTICK (test code = NEGATIVE NEGATIVE DGLUU) UA KETONE DIPSTICK (test code = TRACE NEGATIVE KETU) UA PROTEIN DIPSTICK (test code = NEGATIVE NEGATIVE PROU) IS NURSE PERFORMING TEST? SHAMEKA PROTEIN/CREATININE [id number] 15:43:00 Test Item Value Reference Range Interpretation Comments UR PROTEIN RANDOM (test code = mg/dL PROTU) UR CREATININE RANDOM (test code = mg/dL CREATU) PROTEIN/CREATININE RATIO (test code mg/gcrea <200 = P/CRATIO) IS NURSE PERFORMING TEST? SHAMEKA PROTEIN [id number] 13:08:00 Test Item Value Reference Range Interpretation Comments UR PROTEIN RANDOM 21.8 mg/dL (test code = PROTU) UR PROTEIN 24HR 305 mg/24HR 20-150 HH RESULTS CALL ED TO (test code = DONNA NUGENT AD BACK [id number]) & CONFIRMED? MAURICIO ClearyBY F.LAB.ELB1 08/07 1308.Units for 24 HR Urine Protein h ave changed: New Un its = MG/24HR UR VOLUME (test code 1400 ML = VOL) COMPREHENSIVE METABOLIC [id number] 15:51:00 Test Item Value Reference Range Interpretation [...] 46-116 N code = ALKP) CBC W/AUTO [id number] 15:25:00 Test Item Value Reference Range Interpretation [...] NORMAL code = PLTMR) UR CREATININE CLEARANCE [id number] 16:27:00 Test Item Value Reference Range Interpretation Comments CREATININE CLEARANCE RESULT (test 180 ml/min 70-120 H code = CREATCLR) CREATININE (test code = CREAT) 0.6 mg/dL 0.5-1.0 N UR CREATININE RANDOM (test code = 120.2 mg/dL CREATU) UR VOLUME (test code = VOL) 1300 ML UR PROTEIN [id number] 16:27:00 Test Item Value Reference Range Interpretation Comments UR PROTEIN RANDOM 23.5 mg/dL (test code = PROTU) UR PROTEIN 24HR (test 306 mg/24HR 20-150 HH RESULT S CALLED TO code = [id number]) APRIL.READ BACK & CONFIRMED? YES. BY F.LAB.ELB1 12/26 9667.Units for 24 HR Urine Protein h ave changed: New Un its = MG/24HR AMNISURE (ROM) [id number] 15:13:00 Test Item Value Reference Range Interpretation Comments AMNISURE (ROM) TEST (test code = NON-RUPTURED NON-RUPTURE AMNI) : *Amnisure QC OK? YES- US FET BIO PH NH W/O [id number] 10:31:00 Patient Name: FELICIA MCCANN Unit No: [id number] EXAMS: CPT CODE: [id number] US FET BIO PH NH W/O [id number] [facility] [address] [place] [address] OBSTETRICAL BIOPHYSICAL ULTRASOUND REPORT Pat. Name: FELICIA MCCANN Pat. No: [id number] Study Date: 08/14/2019 9:40am , Age: 05 1985, 33 Pregnancies: 6,Para 1132 LMP: Unknown GA by 1st: 28w6d GA by US: 28w5d GA Selected: 28w6d (From First S) BETSY: 10/31/2019 Referring MD: Sanna Hoffman Gang Knife Fish Chopper: Shante Lazo RDMS CPT4: USBPPWONST Hist/Ind: HTN SCAN 3 MEASUREMENTS AGE GROWTH EVALUATION Measurement GA Range Srce %for GA Ratios ----- ---- ------- BPD 7.2 cm 29w1d (89g0d-21b9q) Hadl BPD 57% FL/BPD 0.75 (0.71 -0.87) HC 27.6 cm 29w6d (93z2p-21y7a) Hadl HC 71% FL/AC 0.21 (0.20 - 0.24) APD 8.2 cm APD HC/AC 1.10 (0.99 - 1.18) TAD 7.7 cm TAD CI 0.73 (0.70 - 0.86) AC 25.0 cm 29w1d (27w0d- 31w2d) Hadl AC 56% FL 5.4 cm 28w0d (05b5q-25i7e) Hadl FL 33% HL 5.0 cm 29w2d (54w9i-45i8v) Gian HL 56% GA for sonogram 28w5d (70j5f-34a0h) Weight Estimate: based on (BPD,HC,AC,FL) Hadlock Weight: 1320 gm (4861-7263) Hadlo : 2lbs, 14oz Normal: 1287 gm (873-1857) Brenne Wt% 52% for 28.9 wks Cervical Length: 3.9 cm Heart Rate: 140 bpm Amniotic Fluid Index: 17.2cm (09.2- 23.1) Q1: 3.3cm Q2: 2.9cm Q3: 6.5cm Q4: 4.4cm Biophysical Profile: 01/14 Breathin Tone: 2 Movement: 2 AFV: 2 CLINICAL SUMMARY Type of Gestation: Heredia Intrauterine in transverse HEAD RIGHTpresentation. size is appropriate for gestational age. growth: Consistent with normal growth motion and organs seen: heart motion seen body and limb movements observed tone noted breathing movements observed [facility] NAME: FELICIA MCCANN Radiology Department PHYS: Sanna Cavanaugh MD [address] :1985 AGE: 33 SEX: [place], [place] [address] LOC: Gary Mcginnis PHONE #: [phone] EXAM DATE: 08/14/2019 STATUS: ADM IN FAX #: [phone] RAD NO: Page 1 Signed Report (CONTINUED) Patient Name: FELICIA MCCANN Unit No: [id number] EXAMS: CPT CODE: [id number] US FET BIO PH NH W/O NST 84953 (Continued) Placental location: Anterior Placental maturity : Grade 1 There is no evidence of placenta previa. Amniotic fluid volume is normal. Uterus and adnexa: No significant abnormality isseen. Thank you for allowing us to participate in the care of this patient. Janie Lovell M.D. Electronic Signature 08/14/2019 10:31am at 1031 Reported and signed by: Janie Lovell MD CC: Sanna Hoffman Technologist: Lori Lazo RDMS Probe: Trnscrbd D/ (1031) Jeffry Orig Print D/T: S: 08/16/2019 (1155) [facility] NAME: FELICIA MCCANN Radiology Department PHYS: Sanna Cavanaugh MD [address] : 1985 AGE: 33 SEX: [place], [place] [address] LOC:Gary A PHONE #: [phone] EXAM DATE: 08/14/2019 STATUS: ADM IN FAX #: [phone] RAD NO: Page2 Signed Report Patient Name: FELICIA MCCANN Unit No: [id number] EXAMS: CPT CODE: [id number] US FET BIO PH NH W/O NST 64639 (Continued) [facility] NAME: FELICIA MCCANN Radiology Department PHYS: Sanna Cavanaugh MD [address] : 1985 AGE: 33 SEX: [place] [address] LOC: Gary A PHONE #: [phone] EXAM DATE: 08/14/2019 STATUS: ADM IN FAX #: [phone] RAD NO: Page 3 Signed Report- US FLW [id number] 10:31:00 Patient Name: EFLICIA MCCANN Unit No: [id number] EXAMS: C[place]: [id number] [place] [address] [address] OBSTETRICAL BIOPHYSICAL ULTRASOUND REPORT Pat. Name: FELICIA MCCANN Pat. No: [id number] Study Date: 08/14/2019 9:40am , Age: 05 1985, 33 Pregnancies: 6, [id number] LMP: Unknown GA by 1st: 28w6d GA by US: 28w5d GA Selected: 28w6d (From First S) BETSY: 10/31/2019 Referring MD: JO PAUL Gang Knife Fish Chopper: Shante Lazo RDMS CPT4: USPREGFU Admitting MD: SANNA HOFFMAN Hist/Ind: HTN SCAN 3 ID ASUREMENTS AGE GROWTH EVALUATION Measurement GA Range Srce %for GA Ratios ----- ---- ------- BPD 7.2 cm 29w1d (75p7a-82i9r) Hadl BPD 57% FL/BPD 0.75 (0.71 - 0.87) HC 27.6 cm 29w6d (95n2f-30w4g) Hadl HC 71% FL/AC 0.21 (0.20 - 0.24) APD 8.2cm APD HC/AC 1.10 (0.99 - 1.18) TAD 7.7 cm TAD CI 0.73 (0.70 - 0.86) AC 25.0 cm 29w1d (27w0d- 31w2d) Hadl AC 56% FL 5.4 cm 28w0d (07q0p-14d3t) Hadl FL 33% HL 5.0 cm 29w2d (95h8g-39n3e) Gian HL 56% GA for sonogram 28w5d (17g2m-07h0z) Weight Estimate: based on (BPD,HC,AC,FL) Hadlock Weight: 1320 gm(7755-4024) Hadlo : 2lbs, 14oz Normal: 1287 gm (873-1857) Brenne Wt% 52% for 28.9 wks Cervical Length: 3.9 cm Heart Rate: 140 bpm Amniotic Fluid Index: 17.2cm (09.2- 23.1) Q1: 3.3cm Q2: 2.9cm Q3: 6.5cm Q4: 4.4cm Biophysical Profile: 01/14 Breathin Tone: 2 Movement: 2 AFV: 2 CLINICAL SUMMARY Type of Gestation: Heredia Intrauterine in transverse HEAD RIGHTpresentation. size is appropriate for gestational age. growth: Consistent with normal growth motion and organs seen: heart motionseen body and limb movements observed tone noted [facility] NAME: FELICIA MCCANN Radiology Department PHYS: Sanna Cavanaugh MD [address] : 1985 AGE: 33 SEX: [place] [address] LOC: Dhara6 Ras PHONE #: [phone] EXAM DATE: 12/2019 STATUS: ADM IN FAX #: [phone] RAD NO: Page 1 Signed Report (CONTINUED) Patient Name: FELICIA MCCANN Unit No: [id number] EXAMS: CPT CODE: [id number] [place] [address] (Continued) breathing movements observed Placental location: Anterior Placental maturity : Grade 1 There is no evidence of placenta previa. Amniotic fluid volume is normal. Uterus and adnexa: No significant abnormality is seen. Thank you for allowing us to participate in the care of this patient. Janie Lovell M.D. Electronic Signature 08/14/2019 10:31am at 1031 Reported and signed by: Janie Lovell MD CC: Sanna Hoffman Technologist: Shante Lazo RDMS Probe: Trnscrbd D/ (1031) Jeffry Orig Print D/T: S: 08/14/2019 (1031) [facility] NAME: FELICIA MCCANN Radiology Department PHYS: Sanna Cavanaugh MD [address] : 1985 AGE: 33 SEX: F [place] [address] LOC: Dhara6 A PHONE #: [phone] EXAM DATE: 08/14/2019 STATUS: ADM IN FAX #: [phone] RADNO: Page 2 Signed Report Patient Name: FELICIA MCCANN Unit No: [id number] EXAMS: CPT CODE: [id number] [place] [address] (Continued) [facility] NAME: FELICIA MCCANN Radiology Department PHYS: Sanna Cavanaugh MD [address] : 1985 AGE: 33 SEX: [place], [place] [address] LOC: Donovan3036 A PHONE #: [phone] EXAM DATE: 08/14/2019 STATUS: ADM INFAX #: [phone] RAD NO: Page 3 Signed ReportGLUCOSE [id number] 09:45:00 Test Item Value Reference Range Interpretation Comments GLUCOSE 2HR (test code = GLU2) 127 mg/dL 70-140 N 3HR GTT GLU2 GLU2HR from 306:CF:L03795I.GLUCOSE [id number] 09:42:00 Test Item Value Reference Range Interpretation Comments GLUCOSE 3HR (test code = GLU3) 116 mg/dL 65-110 H 3HR GTT GLU3 GLU3HR from 306:CF:[id number].GESTATION SCREEN [id number] 07:21:00 Test Item Value Reference Range Interpretation Comments GESTATION SCREEN GLUCOSE (test code 142 MG/DL <150 = GLU1S) GLU GEST SCRN 1 HR GLU GLU1S from 306:CF:G64029Q.GLUCOSE [id number] 05:26:00 Test Item Value Reference Range Interpretation Comments GLUCOSE FASTING (test code = GLUF) 93 mg/dL 65-110 N GLU GEST SCRN GLUFAST GLUFAST from 306:CF:[id number].CHEMISTRY 7 [id number] 15:00:00 Test Item Value Reference Range Interpretation [...] = CA) 8.5 mg/dL 8.4-10.2 N LIVER [id number] 15:00:00 Test Item Value Reference Range Interpretation [...] 46-116 N code = ALKP) CBC W/AUTO [id number] 14:35:00 Test Item Value Reference Range Interpretation [...] NORMAL NORMAL code = PLTMR) UR PROTEIN [id number] 13:01:00 Test Item Value Reference Range Interpretation Comments UR PROTEIN RANDOM 14.5 mg/dL (test code = PROTU) UR PROTEIN 24HR (test 189 mg/24HR 20-150 H Units for 24 HR Urine code = KCJE55P) Protein have changed: New Units = MG/ 24HR UR VOLUME (test code 1300 ML = VOL) - US PREG AFTER [id number] 09:35:00 Patient Name: FELICIA MCCANN Unit No: [id number] EXAMS: CPT CODE: [id number] US PREG AFTER TRI [address] [facility] [address] [place] [address] OBSTETRICAL ULTRASOUND REPORT Pat. Name: FELICIA MCCANN Pat. No: [id number] Study Date: 07/29/2019 9:25pm , Age: 05 1985, 33 Pregnancies: 6, Para 1132 LMP:Unknown GA by 1st: 26w4d GA by US: 26w1d GA Selected: 26w4d (From First S) BETSY: 10/31/2019 ReferringMD: JO PAUL Gang Knife Fish Chopper: Julianne Portillo RDMS CPT4: [id number] Admitting MD: SANNA HOFFMAN/Ind: HIGH BP SCAN 2 MEASU REMENTS AGE GROWTH EVALUATION Measurement GA Range Srce %for GA Ratios ---- ------- BPD 6.5 cm 26w3d (11x9u-52b3x) Hadl BPD 46% FL/BPD 0.75 (0.71 - 0.87) HC 24.2 cm 26w0d (61i0a-39m6p) Hadl HC 39% FL/AC 0.21 (0.20 - 0.24) APD 7.3 cmAPD HC/AC 1.05 (1.00 - 1.19) TAD 7.3 cm TAD CI 0.80 (0.70 - 0.86) AC 22.9 cm 27w1d (25w0d- 29w3d) Hadl AC 63% FL 4.9 cm 26w1d (18c8q-50h8n) Hadl FL 40% HL 4.5 cm 26w5d (54p1u-75k4v) Gian HL 53% GA forsonogram 26w1d (29w2x-62d5d) Weight Estimate: based on (BPD,HC,AC,FL) Hadlock Weight: 992 gm (847-1137) Hadlock : 2lbs, 2oz Normal: 934 gm (621-1406) Asael Wt% 55% for 26.6 wks Cervical Length: 3.5 cm Heart Rate: 137 bpm Amniotic Fluid Index: 13.3cm (09.6- 22.5) Q1: 4.8cm Q2: 3.9cm Q3: 3.4cm Q4: 1.3cm MATERNAL ANATOMY Ovaries LxHxW (cm) Right 2.4x 2.0 x 1.8 Vol: 4.5cc Left 2.6 x 1.5 x 1.9 Vol: 3.9cc CLINICAL SUMMARY Type of Gestation: Heredia Intrauterine in vertex presentation. size is appropriate for gestational age. growth: Consistent with normal growth [facility] NAME: FELICIA MCCANN Radiology Department PHYS: Sanna Cavanaugh MD [address]: 1985 AGE: 33 SEX: [place] [address] LOC: Donovan3048 A PHONE #: [phone] EXAM DATE: 07/29/2019 STATUS: ADM IN FAX #: [phone] RAD NO: Page 1 Signed Report (CONTINUED) Patient Name: FELICIA MCCANN Unit No: [id number] EXAMS: CPT CODE: [id number] US PREG AFTER 1ST TRI [address] (Continued) motion and organs seen: heart motion seen [...] Signature 07/30/2019 09:35am at 0935 Reported and signed by: Bharat Oneill MD CC: Sanna Hoffman Technologist: Julianne Portillo RDMS Probe: Trnscrbd D/ (0935) Blank Orig Print D/T: S: 07/30/2019 (0935) [facility] NAME: FELICIA MCCANN Radiology Department PHYS: Sanna Cavanaugh MD [address] : 1985 AGE: 33 SEX: [place], [place] [address] LOC: F.3048 A PHONE #: [phone] EXAM DATE: 07/29/2019 STATUS: ADM IN FAX #: [phone] RAD NO: Page 2 Signed Report Patient Name: FELICIA MCCANN Unit No: [id number] EXAMS: CPT CODE: [id number] US PREG AFTER 1ST TRI [address] (Continued) [facility] NAME: FELICIA MCCANN Radiology Department PHYS: Sanna Cavanaugh MD [address] : 1985 AGE: 33 SEX: [place], [place] [address] LOC: Leonor8 Ras PHONE #: [phone] EXAM DATE: 07/29/2019 STATUS: ADM IN FAX #: [phone] RAD NO: Page 3 Signed ReportGESTATION SCREEN [id number] 07:59:00 Test Item Value Reference Range Interpretation Comments GESTATION SCREEN GLUCOSE (test code 135 MG/DL <150 = GLU1S) GLU GEST SCRN 1 HR GLU GLU1S from 220:CF:L05675T.GLUCOSE [id number] 05:55:00 Test Item Value Reference Range Interpretation Comments GLUCOSE FASTING (test code = GLUF) 96 mg/dL 65-110 N GLU GEST SCRN GLUFAST GLUFAST from 220:CF:H33044C.[id number] 13:37:00 Test Item Value Reference Range Interpretation Comments CREATININE (test code = CREAT) 0.7 mg/dL 0.5-1.0 N SGOT/[id number] 13:37:00 Test Item Value Reference Range Interpretation Comments SGOT/AST (test code = AST) 12 units/L 15-37 L SGPT/[id number] 13:37:00 Test Item Value Reference Range Interpretation Comments SGPT/ALT (test code = ALT) 15 units/L 12-78 N ALKALINE PHOSPHATASE [id number] 13:37:00 Test Item Value Reference Range Interpretation Comments ALKALINE PHOSPHATASE TOTAL (test 50 units/L 46-116 N code = ALKP) [id number] 13:37:00 Test Item Value Reference Range Interpretation Comments AMYLASE (test code = RAISA) 30 units/L 30-110 N [id number] 13:37:00 Test Item Value Reference Range Interpretation Comments LIPASE (test code = LIP) 60 units/L 73-393 L CBC W/AUTO [id number] 13:19:00 Test Item Value Reference Range Interpretation [...] NORMAL NORMAL code = PLTMR) CHEMISTRY 7 [id number] 23:01:00 Test Item Value Reference Range Interpretation [...] = CA) 8.6 mg/dL 8.4-10.2 N URIC [id number] 23:01:00 Test Item Value Reference Range Interpretation Comments URIC ACID (test code = URIC) 3.7 mg/dL 2.6-6.0 N SGOT/[id number] 23:01:00 Test Item Value Reference Range Interpretation Comments SGOT/AST (test code = AST) 22 units/L 15-37 N SGPT/[id number] 23:01:00 Test Item Value Reference Range Interpretation Comments SGPT/ALT (test code = ALT) 26 units/L 12-78 N CHEMISTRY 7 [id number] 22:51:00 Test Item Value Reference Range Interpretation [...] = CA) 8.6 mg/dL 8.4-10.2 N URIC [id number] 22:51:00 Test Item Value Reference Range Interpretation Comments URIC ACID (test code = URIC) 3.7 mg/dL 2.6-6.0 N URINALYSIS [id number] 22:35:00 Test Item Value Reference Range Interpretation [...] = MUCU) RARE NONE SEEN Comments to Surgery Scheduler: CORETTA MCCORD SAMPLE: CLEAN CATCHCBC W/AUTO DIFF [...] code = PLTMR) - US PREG UT [id number] 20:39:00 Patient Name: FELICIA MCCANN Unit No: [id number] EXAMS: CPT CODE: [id number] US PREG [place] TRANSVAGINAL [address] Limited obstetrical ultrasound with transvaginal imaging of the cervix dated 06/26/2019. HISTORY: 21 week IUP. Elevated blood pressure. Headache. Bloody discharge. He transabdominal obstetrical ultrasound was performed reveals the presence of a single intrauterine in transverseposition with head on maternal left. The placenta is anteriorly positioned and demonstrates grade 1 e chotexture. There is no evidence of placenta previa [...] anatomy: A anatomic survey was not performed. F etal cardiac activity is documented with a heart rate of 147 bpm. IMPRESSION: 1. Single living intrauterine with an estimated ultrasound gestational age of 22 weeks 0 days and an estimated date of delivery of 10/30/2019. SL: 131 at 2039 Reported and signed by: Jaiden Durham MD CC: Sanna Hoffman Technologist: Shante Lazo, [facility] Probe: [id number] Trnscrbd D/ (2038) Bhavana Orig Print D/T: S: 06/26/2019 (2041) [facility] NAME: FELICIA MCCANN JULIANNE Radiology Department PHYS: Sanna Dickerson MD [address] : 1985 AGE: 33 SEX: [place] [address] LOC: DonovanROMAN PHONE #: [phone] EXAM DATE: 06/26/2019 STATUS: REG ER FAX #: [phone] RAD NO: Page 1 Signed Report Patient Name: FELICIA MCCANN Unit No: [id number] EXAMS: CPT CODE: [id number] US PREG [place] TRANSVAGINAL [address] (Continued) [facility] NAME: FELICIA MCCANN JULIANNE Radiology Department PHYS: Sanna Cavanaugh MD [address] : 1985 AGE:33 SEX: [place] [address] LOC: DonovanROMAN PHONE #: [phone] EXAM DATE: STATUS: REG ER FAX #: [phone] RAD NO: Page 2 Signed Report- US FLW [id number] 20:39:00 Patient Name: FELICIA MCCANN Unit No: [id number] EXAMS: CPT CODE: [id number] [place] [address] Limited obstetrical ultrasound with transvaginal imaging of the cervix dated 06/26/2019. HISTORY: 21 week IUP. Elevated blood pressure. Headache. Bloody discharge. He transabdominal obstetrical ultrasound was performed reveals the presence of a single intrauterine in transverse position with head on maternal left. [...] of 147 bpm. IMPRESSION: 1. Single living intraute rine with an estimated ultrasound gestational age of 22 weeks 0 days and an estimated dateof delivery of 10/30/2019. SL: 131 gy7059 Reported and signed by: Jaiden Durham MD CC: Jo Paul MD; Sanna Hoffman Technologist: Shante Lazo RDMS Probe: Trnscrbd D/ (2038) t.[email or web address].[email or web address] Orig Print D/T: S: 06/26/2019 (2041) [facility] NAME: FELICIA MCCANN Radiology Department PHYS: HARSHA. - Jo Paul MD [address] : 1985 AGE: 33 SEX: [place] [address] LOC: DonovanROMAN PHONE #: [phone] EXAM DATE: 06/26/2019 STATUS: REG ER FAX #: [phone] RAD NO: Page 1 Signed Report Patient Name: FELICIA MCCANN JULIANNE Unit No: [id number] EXAMS: CPT CODE: [id number] [place] [address] (Continued) [facility] NAME: KAUSHIK MCCANN Radiology Department PHYS: HARSHA. - Jo Paul MD [address] : 1985 AGE: 33 SEX: [place] [address] LOC: Laurence.ROMAN PHONE #: [phone] EXAM DATE: 06/26/2019 STATUS: REG ER FAX #: [phone] RAD NO: Page 2 Signed Report COMPREHENSIVE METABOLIC [id number] 20:15:00 Test Item Value Reference Range Interpretation [...] = ALKP) UA RFLX MICR CULT IF [id number] 19:55:00 Test Item Value Reference Range Interpretation [...] RARE-FEW Indication for culture: Suprapubic PainUR PROTEIN/CREATININE [id number] 19:55:00 Test Item Value Reference Range Interpretation Comments UR PROTEIN RANDOM (test code = <6 mg/dL PROTU) UR CREATININE RANDOM (test 22.8 mg/dL code = CREATU) PROTEIN/CREATININE RATIO (test 260.0 mg/gcrea <200 H code = P/CRATIO) Indication for culture: Suprapubic PainUA RFLX MICR CULT IF [id number] 19:51:00 Test Item Value Reference Range Interpretation [...] RARE-FEW Indication for culture: Suprapubic PainUR PROTEIN/CREATININE [id number] 19:51:00 Test Item Value Reference Range Interpretation Comments UR PROTEIN RANDOM (test code = mg/dL PROTU) UR CREATININE RANDOM (test code = mg/dL CREATU) PROTEIN/CREATININE RATIO (test code mg/gcrea <200 = P/CRATIO) Indication for culture: Suprapubic PainCBC W/AUTO [id number] 19:47:00 Test Item Value Reference Range Interpretation [...]
[2022-03-25 13:15] LABS: Urine Blood Negative (Negative); Urine Glucose Negative (Negative); Urine Protein Trace (Negative); Urine Specific Gravity 1.025 (1.005-1.030)
[2022-03-25 13:23] LABS: Urine Mucus 2+ /HPF (None Seen); Urine RBC <5 /HPF (None Seen)
[2022-03-25] MEDS ORDERED: KETOROLAC 30 MG/ML INJ ONE ×2 (13:30→13:32)
[2022-03-25 13:31] LABS: Urine Specific Gravity/Preg 1.025 (1.005-1.030)
[2022-03-25] MEDS ORDERED: NA CHLORIDE 0.9% 1,000 ML ONE (13:31)
[2022-03-25] MEDS ORDERED: FENTANYL CITR 100 MCG/2 ML ONE (13:32)
[2022-03-25 13:44] LABS: Absolute Lymphocytes (CBC) 2.1 K/uL (0.7-4.9); Hematocrit 40.9 % (36.0-45.0); Lymphocytes % 29.7 % (15.3-44.8); MCV 87.1 fL (80-100); MPV 7.8 fL (7.6-11.3)
[2022-03-25 13:52] LABS: Albumin 4.2 g/dL (3.4-5.0); Bilirubin Total 0.5 mg/dL (0.2-1.0); Potassium 3.7 mmol/L (3.5-5.1); Protein, Total 8.2 g/dL (6.4-8.2)
[2022-03-25] MEDS ORDERED: HYDROMORPHONE HCL 1 MG/ML INJ ONE (14:57)
--- NOTE | 2022-03-25 16:23 | RAD REPORT ---
EXAM DESCRIPTION: MRI - Lumbar Spine Vaishali Linn- 03/25/2022 4:15 pm CLINICAL HISTORY: prior surgery, r/o cauda equina Back pain, radiculopathy COMPARISON: No comparisons FINDINGS: Vertebral body heights are within normal limits. No aggressive marrow pattern is observed. No fracture is suspected. The conus medullaris terminates at a normal level. No thickening of the cauda equina or clumping of n erve roots seen. L1-2 level: No significant findings. L2-3 level: No significant findings. L3-4 level: Mild posterior disc bulge with mild facet and ligamentum flavum hypertrophy. L4-5 level: Wace-ja-uttkqhwg broad-based posterior disc bulge is seen with moderate facet hypertrophy . Mild narrowing the anterior inferior aspects of both exit foramina. L5-S1 level: Discogenic endplate changes are present. Posterior disc protrusion is seen along the rig ht paracentral and right foraminal location. Right lateral recess is attenuated. Evidence of previous right rashaad laminectomy noted. Both exit foramina are mildly narrowed greater on the right. IMPRESSION: Evzj-kk-atgxlbwy spondylosis is present at L4-5 and L5-S1. Findings appear more signific ant at L5-S1 towards the right.
--- NOTE | 2022-03-25 16:32 | EDPHYS ---
Physician Documentation [facility] Name: Felicia Cheung Age: 36 yrs Sex: Female : 1985 Arrival Date: 03/25/2022 Time: 11:22 Bed 11 Private MD: AMBAR Physician Em Wu HPI: 03/25 12:33 This 36 yrs old Unknown Female presents to ER via Ambulatory with complaints of Back snw Pain. 12:33 The patient presents with pain that is acute. The symptoms are located in the low back. snw Onset: The symptoms/episode began/occurred 4 day(s) ago, and became worse this morning. The pain radiates to the coccyx and left gluteus neetu. Associated signs and symptoms: Pertinent positives: constipation. The problem was sustained PT for Herniated disc, s/p surgery. Pt has been in rehab for disc herniation since December 14 surgery. She was riding her bike in PT last week and felt a pop. She has not been able to effectively have a bm since. Pt with obvious pain in lower back today. Severity of symptoms: At their worst the symptoms were moderate, severe. The patient has experienced a previous episode. PT and neurosurgery. 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 - Social history:: Smoking status: Patient denies any tobacco usage or history of. ROS: 12:33 Constitutional: Negative for fever, chills, and weight loss, Eyes: Negative for injury, snw pain, redness, and discharge, ENT: Negative for injury, pain, and discharge, Neck: Negative for injury, pain, and swelling, Cardiovascular: Negative for chest pain, palpitations, and edema, Respiratory: Negative for shortness of breath, cough, wheezing, and pleuritic chest pain, Abdomen/GI: Negative for abdominal pain, nausea, vomiting, diarrhea, positive for constipation, : Negative for injury, bleeding, discharge, and swelling, MS/Extremity: Negative for injury and deformity, Skin: Negative for injury, rash, and discoloration, Neuro: Negative for headache, weakness, numbness, tingling, and seizure. 12:33 Back: Positive for decreased range of motion, pain at rest, pain with movement, radiated pain, of the left low back. Exam: 12:31 Constitutional: This is a well developed, well nourished patient who is awake, alert, snw and in no acute distress. Head/Face: Normocephalic, atraumatic. Eyes: Pupils equal round and reactive to light, extra-ocular motions intact. Lids and lashes normal. Conjunctiva and sclera are non-icteric and not injected. Cornea within normal limits. Periorbital areas with no swelling, redness, or edema. ENT: Nares patent. No nasal discharge, no septal abnormalities noted. Tympanic membranes are normal and external auditory canals are clear. Oropharynx with no redness, swelling, or masses, exudates, or evidence of obstruction, uvula midline. Mucous membranes moist. Neck: Trachea midline, no thyromegaly or masses palpated, and no cervical lymphadenopathy. Supple, full range of motion without nuchal rigidity, or vertebral point tenderness. No Meningismus. Chest/axilla: Normal chest wall appearance and motion. Nontender with no deformity. No lesions are appreciated. Cardiovascular: Regular rate and rhythm with a normal S1 and S2. No gallops, murmurs, or rubs. Normal PMI, no JVD. No pulse deficits. Respiratory: Lungs have equal breath sounds bilaterally, clear to auscultation and percussion. No rales, rhonchi or wheezes noted. No increased work of breathing, no retractions or nasal flaring. Abdomen/GI: Soft, non-tender, with normal bowel sounds. No distension or tympany. No guarding or rebound. No evidence of tenderness throughout. Skin: Warm, dry with normal turgor. Normal color with no rashes, no lesions, and no evidence of cellulitis. MS/ Extremity: Pulses equal, no cyanosis. Neurovascular intact. Full, normal range of motion. Neuro: Awake and alert, GCS 15, oriented to person, place, time, and situation. Cranial nerves II-XII grossly intact. Motor strength 5/5 in all extremities. Sensory grossly intact. Cerebellar exam normal. Normal gait. 12:31 Back: pain, that is moderate, that is severe, of the low back area, ROM is decreased, with flexion. 12:32 Neuro: Sensation: no obvious gross deficits, Gait: limited by pain, seizure activity, snw is not displayed by the patient. Vital Signs: 12:19 BP 139 / 93; Pulse 90; Resp 17; Temp 98.7(O); Pulse Ox 100% on R/A; Weight 89.36 kg; vg1 Height 5 ft. 8 in. (172.72 cm); Pain 9/10; 17:00 BP 123 / 76; Pulse 68; Resp 16; Pulse Ox 100% on R/A; tp1 12:19 Body Mass Index 29.95 (89.36 kg, 172.72 cm) vg1 MDM: 12:23 Patient medically screened. snw 16:34 Data reviewed: vital signs, nurses notes. Data interpreted: Pulse oximetry: on room air snw is 100 %. Interpretation: normal. Counseling: I had a detailed discussion with the patient and/or guardian regarding: the historical points, exam findings, and any diagnostic results supporting the discharge/admit diagnosis, the need for outpatient follow up, to return to the emergency department if symptoms worsen or persist or if there are any questions or concerns that arise at home. Special discussion: I have referred the patient to see his PCP for further evaluation of high blood pressure. Based on the history and exam findings, there is no indication for further emergent testing or inpatient evaluation. I discussed with the patient/guardian the need to see the back specialist for further evaluation of the symptoms. 03/25 12:13 Order name: Urine Microscopic Only; Complete Time: 13:33 snw 03/25 12:29 Order name: CBC with Diff; Complete Time: 13:55 snw 03/25 12:29 Order name: CMP; Complete Time: 13:55 snw 03/25 13:15 Order name: Urine Dipstick-Ancillary; Complete Time: 13:20 EDMS 03/25 13:29 Order name: Urine --Ancillary (enter results) bd 03/25 12:13 Order name: Urine Dipstick-Ancillary (obtain specimen); Complete Time: 13:27 snw 03/25 12:13 Order name: Urine Test (obtain specimen); Complete Time: 13:27 snw 03/25 12:29 Order name: MRI Lumbar Spine wo Con; Complete Time: 16:25 snw Administered Medications: 13:36 Drug: NS 0.9% 1000 ml Route: IV; Rate: 1 bolus; Site: right antecubital; tp1 17:00 Follow up: IV Status: Completed infusion; IV Intake: 1000ml tp1 13:36 Drug: fentaNYL (PF) 25 mcg Route: IVP; Site: right antecubital; tp1 15:09 Follow up: Response: Pain is unchanged, physician notified tp1 13:37 Drug: Ketorolac 30 mg Route: IVP; Site: right antecubital; tp1 15:09 Follow up: Response: Pain is unchanged, physician notified tp1 15:09 Drug: Dilaudid (HYDROmorphone) 1 mg Route: IVP; Site: right antecubital; tp1 17:22 Follow up: Response: Pain is decreased tp1 17:01 Drug: Decadron - Dexamethasone 10 mg Route: IVP; Site: right antecubital; tp1 17:22 Follow up: Response: Medication administered at discharge. tp1 Disposition Summary: 03/25/22 16:32 Discharge Ordered Location: Home snw Condition: Stable snw Diagnosis - Intervertebral disc disorders with radiculopathy, lumbar region snw Followup: snw - With: Emergency Department - When: As needed - Reason: Worsening of condition Followup: snw - With: Private Physician - When: 2 - 3 days - Reason: Recheck today's complaints, Continuance of care, Re-evaluation by your physician Discharge Instructions: - Discharge Summary Sheet snw - Herniated Disk snw - Lumbosacral Radiculopathy snw - Degenerative Disk Disease snw Forms: - Medication Reconciliation Form snw - Thank You Letter snw - Antibiotic Education snw - Prescription Opioid Use snw Prescriptions: - Prednisone 20 mg Oral Tablet - take 2 tablets by ORAL route once daily for 5 days; 10 tablet; Refills: 0, snw Product Selection Permitted - orphenadrine citrate 100 mg Oral Tablet Sustained Release - take 1 tablet by ORAL route 2 times per day As needed; 20 tablet; Refills: 0, snw Product Selection Permitted - Tylenol-Codeine #3 300 mg-30 mg Oral - take 1 tablet by ORAL route 3-4 times daily; 20 tablet; Refills: 0, Product snw Selection Permitted Addendum: 03/28/2022 03:34 STAFF ATTESTATION STATEMENT: I was immediately available onsite in the emergency s d2 department for consultation in the care of this patient. I did not see or examine this patient. Em Wu MD. Signatures: Dispatcher [employer] EDZahira Schafer FNP-C ROVING WINDER-CsnIvelisse Green RN RN vg1 Kim Puckett RN RN tp1 Em Wu MD MD sd2 Corrections: (The following items were deleted from the chart) 03/25 13:37 12:30 TEST, SERUM+SC.LAB.BRZ ordered. EDAZ EDMS
--- NOTE | 2022-03-25 16:32 | ER ---
Nurse's Notes [facility] Name: Felicia Cheung Age: 36 yrs Sex: Female : 1985 Arrival Date: 03/25/2022 Time: 11:22 Bed 11 Private MD: Diagnosis: Intervertebral disc disorders with radiculopathy, lumbar region Presentation: 03/25 12:19 Chief complaint: Patient states: hx of herniated disc L5, had sx December 2021 and has been vg1 going to and about two weeks ago "something went wrong" Pain for two weeks, numbness and tingling left lower back that radiates to Left leg. States constipation. Coronavirus screen: Vaccine status: Patient reports receiving the 2nd dose of the covid vaccine. Client denies travel out of the [place] in the last 14 days. Ebola Screen: Patient negative for fever greater than or equal to 101.5 degrees Fahrenheit, and additional compatible Ebola Virus Disease symptoms Patient denies exposure to infectious person. Initial Sepsis Screen: Does the patient meet any 2 criteria? No. Patient's initial sepsis screen is negative. Does the patient have a suspected source of infection? No. Patient's initial sepsis screen is negative. Risk Assessment: Do you want to hurt yourself or someone else? Patient reports no desire to harm self or others. Onset of symptoms was March 25, 2022. 12:19 Method Of Arrival: Ambulatory vg1 12:19 Acuity: COMPA 4 vg1 12:41 Acuity: COMPA 3 iw Triage Assessment: 12:21 General: Appears uncomfortable, Behavior is anxious, crying. Pain: Complains of pain in vg1 back and left leg Pain currently is 9 out of 10 on a pain scale. Musculoskeletal: Circulation, motion, and sensation intact. 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 - Social history:: Smoking status: Patient denies any tobacco usage or history of. Screenin:53 Abuse screen: Denies threats or abuse. Denies injuries from another. Nutritional tp1 screening: No deficits noted. Tuberculosis screening: No symptoms or risk factors identified. Fall Risk No fall in past 12 months (0 pts). No secondary diagnosis (0 pts). IV access (20 points). Ambulatory Aid- None/Bed Rest/Nurse Assist (0 pts). Gait- Weak (10 pts.). Mental Status- Oriented to own ability (0 pts). Total Gordillo Fall Scale indicates Low Risk Score (25-44 pts). Assessment: 12:53 General: Appears in no apparent distress. uncomfortable, Behavior is calm, cooperative. tp1 Pain: Complains of pain in lumbar area Pain radiates to left leg Pain currently is 9 out of 10 on a pain scale. Quality of pain is described as dull, sharp, stabbing, numb. Neuro: Level of Consciousness is awake, alert, obeys commands, Oriented to person, place, time, situation. Cardiovascular: Patient's skin is warm and dry. Respiratory: Airway is patent Respiratory effort is even, unlabored. GI: Reports constipation. : No signs and/or symptoms were reported regarding the genitourinary system. EENT: No signs and/or symptoms were reported regarding the EENT system. Derm: Skin is pink, warm \\T\\ dry. Musculoskeletal: Circulation, motion, and sensation intact. 15:09 Reassessment: Patient appears in no apparent distress at this time. Patient and/or tp1 family updated on plan of care and expected duration. Pain level reassessed. Patient is alert, oriented x 3, equal unlabored respirations, skin warm/dry/pink. continues to CO back pain rated 9/10. 15:29 Reassessment: escorted to MRI via wheelchair by [employer]. tp1 Vital Signs: 12:19 BP 139 / 93; Pulse 90; Resp 17; Temp 98.7(O); Pulse Ox 100% on R/A; Weight 89.36 kg; vg1 Height 5 ft. 8 in. (172.72 cm); Pain 9/10; 17:00 BP 123 / 76; Pulse 68; Resp 16; Pulse Ox 100% on R/A; tp1 12:19 Body Mass Index 29.95 (89.36 kg, 172.72 cm) vg1 ED Course: 11:22 Patient arrived in ED. rg4 11:28 Zahira Vora FNP-C [facility]. snw 11:28 Em Wu MD is Attending Physician. snw 12:21 Triage completed. vg1 12:21 Arm band placed on. vg1 12:44 Kim Puckett, RN is Primary Nurse. tp1 12:53 Patient has correct armband on for positive identification. Bed in low position. Call tp1 light in reach. 13:26 Initial lab(s) drawn, by me, sent to lab. Urine collected: clean catch specimen, clear. jw7 Inserted saline lock: 20 gauge in right antecubital area, using aseptic technique. Blood collected. 13:27 CMP Sent. jw7 13:27 CBC with Diff Sent. jw7 16:17 MRI Lumbar Spine wo Con In Process Unspecified. EDMS 17:23 No provider procedures requiring assistance completed. IV discontinued, intact, tp1 bleeding controlled, No redness/swelling at site. Pressure dressing applied. Administered Medications: 13:36 Drug: NS 0.9% 1000 ml Route: IV; Rate: 1 bolus; Site: right antecubital; tp1 17:00 Follow up: IV Status: Completed infusion; IV Intake: 1000ml tp1 13:36 Drug: fentaNYL (PF) 25 mcg Route: IVP; Site: right antecubital; tp1 15:09 Follow up: Response: Pain is unchanged, physician notified tp1 13:37 Drug: Ketorolac 30 mg Route: IVP; Site: right antecubital; tp1 15:09 Follow up: Response: Pain is unchanged, physician notified tp1 15:09 Drug: Dilaudid (HYDROmorphone) 1 mg Route: IVP; Site: right antecubital; tp1 17:22 Follow up: Response: Pain is decreased tp1 17:01 Drug: Decadron - Dexamethasone 10 mg Route: IVP; Site: right antecubital; tp1 17:22 Follow up: Response: Medication administered at discharge. tp1 Medication: 12:53 VIS not applicable for this client. tp1 Intake: 17:00 IV: 1000ml; Total: 1000ml. tp1 Outcome: 16:32 Discharge ordered by . snw 17:23 Discharged to home ambulatory. tp1 17:23 Condition: good 17:23 Discharge instructions given to patient. 17:23 Instructed on discharge instructions, follow up and referral plans. medication usage, Demonstrated understanding of instructions, follow-up care, medications, Prescriptions given X 3. 17:23 Patient left the ED. tp1 Signatures: Dispatcher [employer] EDMS Zahira oVra, SONYAC INFORMATION TECHNOLOGY ADMINISTRATOR-Csnw Lynnette Fletcher, RN AMI iw Harika Rosales rg4 Ivelisse Rosales RN RN 1 Kim Puckett RN RN tp1 Irene Qureshi jw7 Corrections: (The following items were deleted from the chart) 13:37 13:27 TEST, SERUM+SC.LAB.BRZ drawn and sent. jw7 EDMO
[2022-03-25] MEDS ORDERED: dexAMETHasone 10 MG/ML VIAL ONE (16:58)
[2022-03-25 17:34] VITALS: TEMP 98.7; O2SAT 100
[2022-03-25 17:40] VITALS: BP 123/76
== END 2022-03-25 17:23 | disposition home or self-care (01) ==
LOC: ER 11:19
DX: M54.16 Radiculopathy, lumbar region (principal); M51.9 Unspecified thoracic, thoracolumbar and lumbosacral intervertebral disc disorder; I10 Essential (primary) hypertension; M51.26 Other intervertebral disc displacement, lumbar region
CPT/HCPCS: 96361; 85025; 81025; 80053; 72148; 96375; 96374; 99284; J3010; J1100; J1170; J7030; 81003; 81015

== ENCOUNTER 2022-05-14 10:26 | Emergency (ER) | payer OTHER ==
--- OUTSIDE RECORDS SUMMARY | 2022-05-14 10:37 | XMS REPORT | Continuity of Care Document ---
:1985 Author Organization [facility] t Address [address] [place] [address] Care Team Providers Name Role Phone PCP, PATIENT DOES NOT HAVE A Primary Care Physician UnavailSanna Hunter Attending Clinician Unavailable Fernanda Sargent RN Attending Clinician Unavailable Graham Hernandez Attending Clinician GRAHAM MERCHANT Attending Clinician Unavailable Unknown, Attending Attending Clinician Unavailable Dion Dow MD Attending Clinician DION DOW Attending Clinician Unavailable DEX ALVES Attending Clinician Unavailable TASHI MARTÍNEZ Attending Clinician Unavailable Constantino Stone MD Attending Clinician [phone] Farzaneh Cartwright MD Attending Clinician Tanya HUNTER, Tashi Attending Clinician Dion Dow MD Attending Clinician Jer HUNTER, Camila Thayer Attending Clinician CONSTANTINO STONE Attending Clinician Unavailable AYE MEJIA Attending Clinician Unavailable Aye Mejia MD Attending Clinician Doctor Unassigned, [place] Attending Clinician Unavailable Tristan Christian Attending Clinician TRISTAN TREJO Attending Clinician Unavailable FELIPA SMITH Attending Clinician Unavailable Sarah VELEZ, Felipa Attending Clinician LEANN SERNA Attending Clinician Unavailable Maximilian HUNTER, Leann Attending Clinician Vane MUELLER, Yesi Chinchilla Attending Clinician Unavailable Lab, Adc Fam Pob I Attending Clinician Unavailable Venus Limon Attending Clinician Sanna Hoffman Admitting Clinician Unavailable TASHI MARTÍNEZ Admitting Clinician Unavailable AYE MEJIA Admitting Clinician Unavailable Payers Payer Name Policy Type Policy Number Effective Date Expiration Date S alvaro [facility] [id number] 2019 00:00:00 MEDICAID COMM [id number] 2019 HEALTH CHOICE 00:00:00 [facility] [id number] 2019 00:00:00 Problems Condition Condition Condition Status Onset Resolution Last Treating Co mments Source Name Details Category Date Date Treatment Clinician Date 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 No known No known Disease [facility] active [place] problems problems of Medicin e Allergies, Adverse Reactions, Alerts Allergy Allergy Status Severity Reaction(s) Onset Inactive Treating Comm ents Source Name Type Date Date Clinician No Known DA Active [facility] [place] No Known DA Active [facility] [place] CODEINE DA Active U VOMIT HYPER 2007-0 [facility] 3-14 [facility] [place] No Known DA Active U 2007-0 [facility] Contrast 3-14 [facility] 00:[facility] [place] No Known DA Active U 2006-0 [facility] Food 3-14 [facility] [place] No Known DA Active U 2007-0 [facility] Other 3-14 [facility] [place] NO KNOWN Allergy Active [facility] ALLERGIE [facility] NO KNOWN Drug Active Univers ALLERGIE Class ity of S [facility] Social History Social Habit Start Date Stop Date Quantity Comments [facility] Places Medical Ce nter Lived History [facility] Homeless [facility] Last Year History SDOH University o f Alcohol Frequency [place] [facility] History SDOH University o f Alcohol Std [place] [facility] Drinks Branch History SDSC University o f Alcohol Binge [place] Medic al Branch History of Cigarette Smoker [facility] jacqui of tobacco use Medicine Exposure to 2022-04-27 2022-05-07 Not sure University SARS-CoV-2 00:00:00 10:29:00 [place] [facility] (event) Branch Alcohol intake 2022-03-21 2022-03-21 Current drinker [facility] of 00:00:00 00:00:00 of alcohol Medicine (finding) History SDOH 2021-12-11 2021-12-11 2 BRIJESH Garcia Housing Unable to 00:00:00 00:00:00 Medical Center Pay Alcohol Comment 2021-06-03 2021-06-03 social Universit y of 00:00:00 00:00:00 [facility] Tobacco use and 2021-05-07 2021-05-07 Smokeless tobacco Un iversity of exposure 00:00:00 00:00:00 non-user [facility] Sex [birth year] At [birth year] BRIJESH Gomezs 00:00:00 00:00:00 Medical Center Smoking Status Start Date Stop Date Source Unknown if ever smoked Universit y of [facility] Ex-smoker 2022-01-02 00:00:00 2022-01-02 00:00:00 [facility] Never smoked tobacco [facility] Medications Ordered Filled Start Stop Current Ordering Indication Dosage Frequency Signature Comments Components Source Medication Medication Date Date Medication? Clinician (SIG) Name Name albuterol 2021-06 Yes [id number] 2{puff} Inhale 2 Univers 90 1-29 Puffs ity of mcg/actuati 00:00: every 6 Yogesh as on inhaler 00 (six) Medical hours as Branch needed for Wheezing or Shortness of Breath. albuterol 2021-06 Yes [id number] 2{puff} Inhale 2 Univers 90 1-29 Puffs ity of mcg/actuati 00:00: every 6 Yogesh as on inhaler 00 (six) Medical hours as Branch needed for Wheezing or Shortness of Breath. albuterol 2021-06 Yes [id number] 2{puff} Inhale 2 Univers 90 1-29 Puffs ity of mcg/actuati 00:00: every 6 Yogesh as on inhaler 00 (six) Medical hours as Branch needed for Wheezing or Shortness of Breath. lisinopril- 2021-06 Yes 1{tbl} Take 1 [facility] hydrochloro 0-13 Tablet by Col lege thiazide 12:18: mouth of (PRINZIDE, 04 daily. Medicin ZESTORETIC) e 20-25 MG per tablet methylPREDN 2021-06 Yes [id number] 1{packa Take 1 [facility] ISolone 4 0-13 ge} Package by Jr ege MG TBPK 00:00: mouth See of 00 Admin Medicin Instructio e ns. Medrol dose pack. tramadol 2021-06 Yes [id number] 1{tbl} Take 1 [facility] (ULTRAM) 50 0-07 Tablet by Col lege MG tablet 00:00: mouth of 00 every 8 Medicin hours as e needed for Pain. lisinopril- Yes 1{tbl} Take 1 [facility] hydrochloro 8-30 Tablet by Col lege thiazide 13:32: mouth of (PRINZIDE, 10 daily. Medicin ZESTORETIC) e 20-25 MG per tablet tramadol 2021- [id number] 1{tbl} Take 1 [facility] (ULTRAM) 50 8-29 08-30 Tablet by Co llege MG tablet 00:00: 00:00 mouth of 00 :00 every 8 Medicin hours as e needed for Pain for up to 5 days. oxycodone-a 2021- No [id number] 1{tbl} Take 1 [facility] cetaminophe 8-16 08-30 Tablet by Co llege n 00:00: 00:00 mouth of (PERCOCET) 00 :00 every 6 Medici n 5-325 MG hours as e per tablet needed for Pain. cyclobenzap Yes [id number] 10mg Take 1 [facility] rine 8-15 Tablet by [place] (FLEXERIL) 00:00: mouth 3 of 10 MG 00 times Medicin tablet daily as e needed for Muscle spasms. cyclobenzap Yes [id number] 10mg Take 1 [facility] rine 8-15 Tablet by [place] (FLEXERIL) 00:00: mouth 3 of 10 MG 00 times Medicin tablet daily as e needed for Muscle spasms. oxycodone-a 2021- No 1{tbl} Take 1 [facility] cetaminophe 7-27 07-27 Tablet by Co llege n 14:22: 00:00 mouth of (PERCOCET) 16 :00 every 4 Medici n 10-325 MG hours as e per tablet needed. cyclobenzap Yes 10mg Take 10 mg [facility] rine 7-27 by mouth 3 [place] (FLEXERIL) 13:56: times of 10 MG 55 daily as Medicin tablet needed for e Muscle spasms. lisinopril- Yes 1{tbl} Take 1 [facility] hydrochloro 7-27 Tablet by Col lege thiazide 13:56: mouth of (PRINZIDE, 22 daily. Medicin ZESTORETIC) e 20-25 MG per tablet methylPREDN 0 Yes [id number] 1{packa Take 1 [facility] ISolone 4 7-27 ge} Package by Jr ege MG TBPK 00:00: mouth See of 00 Admin Medicin Instructio e ns. Medrol dose pack. tramadol 0 Yes [id number] 1{tbl} Take 1 [facility] (ULTRAM) 50 7-27 Tablet by Col lege MG tablet 00:00: mouth of 00 every 8 Medicin hours as e needed for Pain. methylPREDN 0 Yes [id number] 1{packa Take 1 [facility] ISolone 4 7-27 ge} Package by Jr ege MG TBPK 00:00: mouth See of 00 Admin Medicin Instructio e ns. Medrol dose pack. methylPREDN 2021- No [id number] 1{packa Take 1 [facility] ISolone 4 7-27 10-13 ge} Package by Col lege MG TBPK 00:00: 00:00 mouth See of 00 :00 Admin Medicin Instructio e ns. Medrol dose pack. lisinopril- Yes 1{tbl} QD Take [address] hydroCHLORO 7-12 tablet by Todd es thiazide 17:34: mouth Medical (PRINZIDE,Z 56 daily. [place] ESTORETIC) 20-25 mg per tablet Yes 1{tbl} QD Take 1 [facility] vitamin 7-12 tablet by Delfin w/calcium-i 17:34: mouth Medic al beatris-folate 56 daily. [place] ( PLUS) 27 mg iron- 1 mg Tab pregabalin 2022- No 150mg Take 150 [facility] (LYRICA) 7- 07-13 mg by [place] 150 MG 00:00: 04:59 mouth two of capsule 00 :00 times Medicin daily. e pregabalin 2022- No 150mg Take 150 [facility] (LYRICA) 7-12 07-13 mg by [place] 150 MG 00:00: 04:59 mouth two of capsule 00 :00 times Medicin daily. e pregabalin 2022- No 150mg Take 150 [facility] (LYRICA) 7-12 07-13 mg by [place] 150 MG 00:00: 04:59 mouth two of capsule 00 :00 times Medicin daily. e pregabalin 2022- No 150mg Q.5D Take [address] [facility] (LYRICA) 7- 07-12 capsule [facility] 150 MG 00:00: 23:59 (150 mg Medical capsule 00 :00 total) by Center mouth 2 (two) times daily. Max Daily Amount: 300 mg cyclobenzap 2021- No 10mg Q.[id number] Take [address] [facility] rine -05 15- [id number] tablet (10 Audrey kes (FLEXERIL) 00:00: 23:59 3D mg total) M edical 10 MG 00 :00 by mouth 3 Center tablet (three) times daily for 10 days. oxyCODONE-a 2021- No 1{tbl} Take [address] cetaminophe 12-18 tablet by Audrey mcneil n 00:00: 23:59 mouth Medical (PERCOCET) 00 :00 every 8 Center 10-325 mg (eight) per tablet hours as needed for up to 10 days. Max Daily Amount: 3 tablets polyethylen 2021- No 17g Q.5D Take [address] e glycol 12-18 by mouth 2 Luke s (GLYCOLAX) 00:00: 23:59 (two) Medic al 17 gram 00 :00 times Center packet daily for 3 days. dicyclomine No 20mg 20 mg, Uni vers (BENTYL) 11-06 Oral, ity of tablet 20 17:15: 16:25 ONCE, 1 [place] mg [place] :[place] [facility], [facility] at 1215, GM maalox:diph No 15mL 15 mL, Uni vers enhydrAMINE 11-06 Oral, ity of :lidocaine 17:15: 16:25 ONCE, 1 Yogesh as 2 % viscous 00 :00 dose, On [facility] jono 1:1:1 Tue Branch (FIRST-MOUT 11/06/21 at [facility]) 1215, GM oral suspension 15 mL morpHINE (4 No 4mg 4 mg, Slow Univers mg/mL) 11-06 IV Push, ity of injection 4 16:30: 15:19 ONCE, 1 [place] mg 00 :00 dose, On [facility] 11/06/21 at 1130, STAT ondansetron No 4mg 4 mg, Slow Univers (ZOFRAN 11-06 IV Push, ity of (PF)) 16:30: 15:19 ONCE, 1 [place] injection 4 00 :00 dose, On [facility] mg e Branch 11/06/21 at 1130, GM iopamidol 2021- No [id number] 50mL 50 mL, U nivers (ISOVUE 5-31 05-31 Intravenou ity o f 370-500 mL) 15:44: 15:45 s, ONCE, 1 [place] injection 00 :00 dose, On Medica l 50 mL Tue Branch 11/06/21 at 1100, Routine metoclopram 2022-0 Yes 10mg Take 10 mg [facility] lilliam 5-31 by mouth. [place] [address] 00:00: of MG tablet 00 Medicin e pantoprazol 2022-0 Yes 1{tbl} Take 1 [facility] e 5-31 Tablet by [place] (PROTONIX) 00:00: mouth of 40 MG 00 daily. Medicin tablet e metoclopram 2022-0 Yes 10mg Take 10 mg [facility] lilliam 5-31 by mouth. [place] [address] 00:00: of MG tablet 00 Medicin e pantoprazol 2022-0 Yes 1{tbl} Take 1 [facility] e 5-31 Tablet by [place] (PROTONIX) 00:00: mouth of 40 MG 00 daily. Medicin tablet e metoclopram 2022-0 Yes 10mg Take 10 mg [facility] lilliam 5-31 by mouth. [place] [address] 00:00: of MG tablet 00 Medicin e pantoprazol 2022-0 Yes 1{tbl} Take 1 [facility] e 5-31 Tablet by [place] (PROTONIX) 00:00: mouth of 40 MG 00 daily. Medicin tablet e dicyclomine 2022-0 Yes [id number] 20mg Take 1 Univers 20 mg 5-31 tablet by ity of tablet 00:00: mouth 4 [place] 00 (four) Medical times Branch daily. metoclopram 2022-0 Yes [id number] 10mg Take 1 Univers lilliam HCl 10 5-31 tablet by ity of mg tablet 00:00: mouth [place] 00 every 6 Medical (six) Branch hours. pantoprazol 2022-0 Yes [id number] 40mg Take 1 Univers e 40 mg EC 5-31 tablet by ity of tablet 00:00: mouth [place] 00 daily. Medical Branch traMADoL 50 2-0 Yes [id number] 50mg Take 1 Univ ers mg tablet 5-31 tablet by ity o f 00:00: mouth [place] 00 every 6 Medical (six) Branch hours as needed for Pain (scale 4-6). Indication s: acute pain dicyclomine 2-0 Yes [id number] 20mg Take 1 Univers 20 mg 5-31 tablet by ity of tablet 00:00: mouth 4 [place] 00 (four) Medical times Branch daily. metoclopram 2022-0 Yes [id number] 10mg Take 1 Univers lilliam HCl 10 5-31 tablet by ity of mg tablet 00:00: mouth [place] 00 every 6 Medical (six) Branch hours. pantoprazol 2-0 Yes [id number] 40mg Take 1 Univers e 40 mg EC 5-31 tablet by ity of tablet 00:00: mouth [place] 00 daily. Medical Branch traMADoL 50 2021-0 Yes [id number] 50mg Take 1 Univ ers mg tablet 5-31 tablet by ity o f 00:00: mouth [place] 00 every 6 Medical (six) Branch hours as needed for Pain (scale 4-6). Indication s: acute pain dicyclomine 2-0 Yes [id number] 20mg Take 1 Univers 20 mg 5-31 tablet by ity of tablet 00:00: mouth 4 00 (four) Medical times Branch daily. metoclopram 2-0 Yes [id number] 10mg Take 1 Univers lilliam HCl 10 5-31 tablet by ity of mg tablet 00:00: mouth [place] 00 every 6 Medical (six) Branch hours. pantoprazol 2-0 Yes [id number] 40mg Take 1 Univers e 40 mg EC 5-31 tablet by ity of tablet 00:00: mouth [place] 00 daily. Medical Branch traMADoL 50 2021-0 Yes [id number] 50mg Take 1 Univ ers mg tablet 5-31 tablet by ity o f 00:00: mouth [place] 00 every 6 Medical (six) Branch hours as needed for Pain (scale 4-6). Indication s: acute pain dicyclomine 2-0 Yes [id number] 20mg Take 1 Univers 20 mg 5-31 tablet by ity of tablet 00:00: mouth 4 [place] 00 (four) Medical times Branch daily. metoclopram 2022-0 Yes [id number] 10mg Take 1 Univers lilliam HCl 10 5-31 tablet by ity of mg tablet 00:00: mouth [place] 00 every 6 Medical (six) Branch hours. pantoprazol 2022-0 Yes [id number] 40mg Take 1 Univers e 40 mg EC 5-31 tablet by ity of tablet 00:00: mouth [place] 00 daily. Medical Branch traMADoL 50 Yes [id number] 50mg Take 1 Univ ers mg tablet 5-31 tablet by ity o f 00:00: mouth [place] 00 every 6 Medical (six) Branch hours as needed for Pain (scale 4-6). Indication s: acute pain tramadol 2021- No 50mg Take 50 mg [facility] (ULTRAM) 50 5-31 07-27 by mouth. Co llege MG tablet 00:00: 00:00 of 00 :00 Medicin e amoxicillin 2021- No [id number] 875mg Take 1 Univers 875 mg 5-10 [...] to 7 days. Indication s: cough predniSONE 2021- No [id number] 40mg Take 2 Univers 20 mg 5-10 05-16 tablets by ity of tablet 00:00: 04:59 mouth [place] 00 :00 daily for Medical 5 days. Branch dicyclomine 2020-06 Yes [id number] 20mg Take 1 Univers 20 mg 2-26 tablet by ity of tablet 00:00: mouth 4 [place] 00 (four) Medical times Branch daily. bromphenira 2020-06 Yes [id number] 5mL Take 5 mL Univers mine-pseudo 2-26 by mouth 3 it y of ephedrine-D 00:00: (three) Yogesh as M (BROMFED 00 times Medical DM) 2-30-10 daily as Bran ch mg/5 mL needed for syrup Cough. dicyclomine 2020-06 Yes [id number] 20mg Take 1 Univers 20 mg 2-26 tablet by ity of tablet 00:00: mouth 4 [place] 00 (four) Medical times Branch daily. bromphenira 2020-06 Yes [id number] 5mL Take 5 mL Univers mine-pseudo 2-26 by mouth 3 it y of ephedrine-D 00:00: (three) Yogesh as M (BROMFED 00 times Medical DM) 2-30-10 daily as Bran ch mg/5 mL needed for syrup Cough. dicyclomine 2020-06 Yes [id number] 20mg Take 1 Univers 20 mg 2-26 tablet by ity of tablet 00:00: mouth 4 ([facility]) Medical times Branch daily. bromphenira 2020-06 Yes [id number] 5mL Take 5 mL Univers mine-pseudo 2-26 by mouth 3 it y of ephedrine-D 00:00: (three) Yogesh as M (BROMFED times Medical DM) 2-30-10 daily as Bran ch mg/5 mL needed for syrup Cough. dicyclomine 2020-06 Yes [id number] 20mg Take 1 Univers 20 mg 2-26 tablet by ity of tablet 00:00: mouth 4 ([facility]) Medical times [place] daily. bromphenira 2020-06 Yes [id number] 5mL Take 5 mL Univers mine-pseudo 2-26 by mouth 3 it y of ephedrine-D 00:00: (three) Yogesh as [facility] 2-30-10 daily as Bran ch mg/5 mL needed for syrup Cough. dicyclomine 2020-06 Yes [id number] 20mg Take 1 Univers 20 mg 2-26 tablet by ity of tablet 00:00: mouth 4 ([facility]) Medical times [place] daily. bromphenira 2020-06 Yes [id number] 5mL Take 5 mL Univers mine-pseudo 2-26 by mouth 3 it y of ephedrine-D 00:00: (three) Yogesh as M (BROMFED times Medical DM) 2-30-10 daily as Bran ch mg/5 mL needed for syrup Cough. dicyclomine 2020-06 Yes [id number] 20mg Take 1 Univers 20 mg 2-26 tablet by ity of tablet 00:00: mouth 4 ([facility]) Medical times Scalf daily. bromphenira 2020-06 Yes [id number] 5mL Take 5 mL Univers mine-pseudo 2-26 by mouth 3 it y of ephedrine-D 00:00: (three) Yogesh as M (BROMFED 00 times Medical DM) 2-30-10 daily as Bran ch mg/5 mL needed for syrup Cough. dicyclomine 2020-06 Yes [id number] 20mg Take 1 Univers 20 mg 2-26 tablet by ity of tablet 00:00: mouth 4 [place] [address] (four) Medical times Branch daily. bromphenira 2020-06 Yes [id number] 5mL Take 5 mL Univers mine-pseudo 2-26 by mouth 3 it y of ephedrine-D 00:00: (three) Yogesh as M (BROMFED 00 times Medical DM) 2-30-10 daily as Bran ch mg/5 mL needed for syrup Cough. dicyclomine 2020-06 Yes [id number] 20mg Take 1 Univers 20 mg 2-26 tablet by ity of tablet 00:00: mouth 4 [place] [address] (four) Medical times Branch daily. bromphenira 2020-06 Yes [id number] 5mL Take 5 mL Univers mine-pseudo 2-26 by mouth 3 it y of ephedrine-D 00:00: (three) Yogesh as M (BROMFED 00 times Medical DM) 2-30-10 daily as Bran ch mg/5 mL needed for syrup Cough. fluticasone 2020-06 Yes 1{spray 1 [place] by [facility] (FLONASE) 07-07 } Nasal [place] 50 MCG/ACT 00:00: route. of nasal spray 00 Medicin e Pseudoeph-B 2020-06 Yes 5mL Take 5 mL [facility] romphen-DM 1-29 by mouth. Jr dread 00:00: of MG/5ML SYRP 00 Medicin e fluticasone 2020-06 Yes 1{spray 1 [place] by [facility] (FLONASE) 07-07 } [facility] 50 MCG/ACT 00:00: route. of nasal spray 00 Medicin e Pseudoeph-B 2020-06 Yes 5mL Take 5 mL [facility] romphen-DM 1-29 by mouth. Jr [place] 00:00: of MG/5ML SYRP 00 Medicin e fluticasone 2020-06 Yes 1{spray 1 [place] by [facility] (FLONASE) 07-07 } Nasal [place] 50 MCG/ACT 00:00: route. of nasal spray 00 Medicin e Pseudoeph-B 2020-06 Yes 5mL Take 5 mL [facility] romphen-DM 1-29 by mouth. Jr dread 00:00: of MG/5ML SYRP 00 Medicin e bromphenira 2020-06 Yes [id number] 5mL Take 5 mL Univers mine-pseudo 1-29 by mouth 4 it y of ephedrine-D 00:00: (four) [place] M (BROMFED 00 times Medical DM) 2-30-10 daily as Bran ch mg/5 mL needed for syrup Congestion /Allergies . azelastine 2020-06 Yes [id number] 1{spray Use 1 Univers 137 mcg 1-29 } [place] in ity of (0.1 %) 00:00: each [place] nasal spray 00 nostril 2 Med ical (two) Branch times daily. Use in each nostril as directed fluticasone 2020-06 Yes [id number] 1{spray Use 1 Univers propionate 1-29 } [place] in ity o f 50 00:00: each [place] mcg/actuati 00 nostril Medic al on nasal daily. Branch spray guaiFENesin 2020-06 Yes [id number] 400mg Take 1 Univers 400 mg 1-29 tablet by ity of tablet 00:00: mouth [place] 00 every 4 Medical (four) Branch hours as needed for Cough. benzonatate 2020-06 Yes [id number] 200mg Take 2 Univers 100 mg 1-29 capsules ity of capsule 00:00: by mouth 2 [place] 00 (two) Medical times Branch daily as needed for Cough. bromphenira 2020-06 Yes [id number] 5mL Take 5 mL Univers mine-pseudo 1-29 by mouth 4 it y of ephedrine-D 00:00: (four) [place] M (BROMFED 00 times Medical DM) 2-30-10 daily as Bran ch mg/5 mL needed for syrup Congestion /Allergies . azelastine 2020-06 Yes [id number] 1{spray Use 1 Univers 137 mcg 1-29 } [place] in ity of (0.1 %) 00:00: each [place] nasal spray 00 nostril 2 Med ical (two) Branch times daily. Use in each nostril as directed fluticasone 2020-06 Yes [id number] 1{spray Use 1 Univers propionate 1-29 } [place] in ity o f 50 00:00: each [place] mcg/actuati 00 nostril Medic al on nasal daily. Branch spray guaiFENesin 2020-06 Yes [id number] 400mg Take 1 Univers 400 mg 1-29 tablet by ity of tablet 00:00: mouth [place] 00 every 4 Medical (four) Branch hours as needed for Cough. benzonatate 2020-06 Yes [id number] 200mg Take 2 Univers 100 mg 1-29 capsules ity of capsule 00:00: by mouth 2 [place] 00 (two) Medical times Branch daily as needed for Cough. bromphenira 2020-06 Yes [id number] 5mL Take 5 mL Univers mine-pseudo 1-29 by mouth 4 it y of ephedrine-D 00:00: (four) [place] M (BROMFED 00 times Medical DM) 2-30-10 daily as Bran ch mg/5 mL needed for syrup Congestion /Allergies . azelastine 2020-06 Yes [id number] 1{spray Use 1 Univers 137 mcg 1-29 } [place] in ity of (0.1 %) 00:00: each [place] nasal spray 00 nostril 2 Med ical (two) Branch times daily. Use in each nostril as directed fluticasone 2020-06 Yes [id number] 1{spray Use 1 Univers propionate 1-29 } [place] in ity o f 50 00:00: each [place] mcg/actuati 00 nostril Medic al on nasal daily. Branch spray guaiFENesin 2020-06 Yes [id number] 400mg Take 1 Univers 400 mg 1-29 tablet by ity of tablet 00:00: mouth [place] 00 every 4 Medical (four) Branch hours as needed for Cough. benzonatate 2020-06 Yes [id number] 200mg Take 2 Univers 100 mg 1-29 capsules ity of capsule 00:00: by mouth 2 [place] 00 (two) Medical times Branch daily as needed for Cough. bromphenira 2020-06 Yes [id number] 5mL Take 5 mL Univers mine-pseudo 1-29 by mouth 4 it y of ephedrine-D 00:00: (four) [place] M (BROMFED 00 times Medical DM) 2-30-10 daily as Bran ch mg/5 mL needed for syrup Congestion /Allergies . azelastine 2020-06 Yes [id number] 1{spray Use 1 Univers 137 mcg 1-29 } [place] in ity of (0.1 %) 00:00: each [place] nasal spray 00 nostril 2 Med ical (two) Branch times daily. Use in each nostril as directed fluticasone 2020-06 Yes [id number] 1{spray Use 1 Univers propionate 1-29 } [place] in ity o f 50 00:00: each [place] mcg/actuati 00 nostril Medic al on nasal daily. Branch spray guaiFENesin 2020-06 Yes [id number] 400mg Take 1 Univers 400 mg 1-29 tablet by ity of tablet 00:00: mouth [place] 00 every 4 Medical (four) Branch hours as needed for Cough. benzonatate 2020-06 Yes [id number] 200mg Take 2 Univers 100 mg 1-29 capsules ity of capsule 00:00: by mouth 2 [place] 00 (two) Medical times Branch daily as needed for Cough. bromphenira 2020-06 Yes [id number] 5mL Take 5 mL Univers mine-pseudo 1-29 by mouth 4 it y of ephedrine-D 00:00: (four) [place] M (BROMFED 00 times Medical DM) 2-30-10 daily as Bran ch mg/5 mL needed for syrup Congestion /Allergies . azelastine 2020-06 Yes [id number] 1{spray Use 1 Univers 137 mcg 1-29 } [place] in ity of (0.1 %) 00:00: each [place] nasal spray 00 nostril 2 Med ical (two) Branch times daily. Use in each nostril as directed fluticasone 2020-06 Yes [id number] 1{spray Use 1 Univers propionate 1-29 } [place] in ity o f 50 00:00: each [place] mcg/actuati 00 nostril Medic al on nasal daily. Branch spray guaiFENesin 2020-06 Yes [id number] 400mg Take 1 Univers 400 mg 1-29 tablet by ity of tablet 00:00: mouth [place] 00 every 4 Medical (four) Branch hours as needed for Cough. benzonatate 2020-06 Yes [id number] 200mg Take 2 Univers 100 mg 1-29 capsules ity of capsule 00:00: by mouth 2 [place] 00 (two) Medical times Branch daily as needed for Cough. bromphenira 2020-06 Yes [id number] 5mL Take 5 mL Univers mine-pseudo 1-29 by mouth 4 it y of ephedrine-D 00:00: (four) [place] M (BROMFED 00 times Medical DM) 2-30-10 daily as Bran ch mg/5 mL needed for syrup Congestion /Allergies . azelastine 2020-06 Yes [id number] 1{spray Use 1 Univers 137 mcg 1-29 } [place] in ity of (0.1 %) 00:00: each [place] nasal spray 00 nostril 2 Med ical (two) Branch times daily. Use in each nostril as directed fluticasone 2020-06 Yes [id number] 1{spray Use 1 Univers propionate 1-29 } [place] in ity o f 50 00:00: each [place] mcg/actuati 00 nostril Medic al on nasal daily. Branch spray guaiFENesin 2020-06 Yes [id number] 400mg Take 1 Univers 400 mg 1-29 tablet by ity of tablet 00:00: mouth [place] 00 every 4 Medical (four) Branch hours as needed for Cough. benzonatate 2020-06 Yes [id number] 200mg Take 2 [facility] 100 mg 1-29 capsules [place] of capsule 00:00: [place] (two[place] Medical times Branch daily as needed for Cough. bromphenira 2020-06 Yes [id number] 5mL Take 5 mL Univers mine-pseudo 1-29 by mouth 4 it y of ephedrine-D 00:00[place] (four[place] (BROMFED 00 times Medical DM) 2-30-10 daily as Bran ch mg/5 mL needed for syrup Congestion /Allergies . azelastine 2020-06 Yes [id number] 1{spray Use 1 Univers 137 mcg 1-29 } [place] in ity of (0.1 %) 00:00: each [place] nasal spray 00 nostril 2 Med ical (two) Branch times daily. Use in each nostril as directed fluticasone 2020-06 Yes [id number] 1{spray Use 1 Univers propionate 1-29 } [place] in ity o f 50 00:00: each [place] mcg/actuati 00 nostril Medic al on nasal daily. Branch spray guaiFENesin 2020-06 Yes [id number] 400mg Take 1 [facility] 400 mg 1-29 tablet by ity of tablet 00:00: mouth [place] 00 every 4 Medical (four) Branch hours as needed for Cough. benzonatate 2020-06 Yes [id number] 200mg Take 2 [facility] 100 mg 1-29 capsules [place] of capsule 00:00: [place] (two) Medical times Branch daily as needed for Cough. bromphenira 2020-06 Yes [id number] 5mL Take 5 mL Univers mine-pseudo 1-29 by mouth 4 it y of ephedrine-D 00:00: (four[place] (BROMFED 00 times Medical DM) 2-30-10 daily as Bran ch mg/5 mL needed for syrup Congestion /Allergies . azelastine 2020-06 Yes [id number] 1{spray Use 1 [facility] 137 mcg 1-29 } [place] in ity of (0.1 %) 00:00: each [place] nasal spray 00 nostril 2 Med ical (two) Branch times daily. Use in each nostril as directed fluticasone 2020-06 Yes [id number] 1{spray Use 1 Univers propionate 1-29 } [place] in ity o f 50 00:00: each [place] mcg/actuati 00 nostril Medic al on nasal daily. Branch spray guaiFENesin 2020-06 Yes [id number] 400mg Take 1 [facility] 400 mg 1-29 tablet by ity of tablet 00:00: mouth [place] 00 every 4 Medical (four) Branch hours as needed for Cough. benzonatate 2020-06 Yes [id number] 200mg Take 2 [facility] 100 mg 1-29 capsules [place] of capsule 00:00: [place] (two) Medical times Branch daily as needed for Cough. bromphenira 2020-06 Yes [id number] 5mL Take 5 mL Univers mine-pseudo 1-29 by mouth 4 it y of ephedrine-D 00:00: (four[place] (BROMFED 00 times Medical DM) 2-30-10 daily as Bran ch mg/5 mL needed for syrup Congestion /Allergies . azelastine 2020-06 Yes [id number] 1{spray Use 1 [facility] 137 mcg 1-29 } [place] in ity of (0.1 %) 00:00: each [place] nasal spray 00 nostril 2 Med ical (two) Branch times daily. Use in each nostril as directed fluticasone 2020-06 Yes [id number] 1{spray Use 1 [facility] propionate 1-29 } [place] in ity o f 50 00:00: each [place] mcg/actuati 00 nostril Medic al on nasal daily. Branch spray guaiFENesin 2020-06 Yes [id number] 400mg Take 1 [facility] 400 mg 1-29 tablet by ity of tablet 00:00: mouth [place] 00 every 4 Medical (four) Branch hours as needed for Cough. benzonatate 2020-06 Yes [id number] 200mg Take 2 [facility] 100 mg 1-29 capsules ity of capsule 00:00: [place] mouth [place] 00 (two) Medical times Branch daily as needed for Cough. traMADOL 2016-0 Yes 50mg Take 1 Univers (ULTRAM) 50 9-24 tablet by ity of mg tablet 00:00: mouth [place] 00 every 6 Medical (six) Branch hours as needed for Pain (scale 7-10). traMADOL 2017-0 Yes 50mg Take 1 Univers (ULTRAM) 50 9-24 tablet by ity of mg tablet 00:00: mouth [place] 00 every 6 Medical (six) Branch hours as needed for Pain (scale 7-10). traMADOL 2017-0 Yes 50mg Take 1 Univers (ULTRAM) 50 9-24 tablet by ity of mg tablet 00:00: mouth [place] 00 every 6 Medical (six) Branch hours as needed for Pain (scale 7-10). traMADOL 2017-0 Yes 50mg Take 1 Univers (ULTRAM) 50 9-24 tablet by ity of mg tablet 00:00: mouth [place] 00 every 6 Medical (six) Branch hours [...] by ity of mg tablet 00:00: mouth [place] 00 every 6 Medical (six) Branch hours [...] Time Observation Value Comments Source Systolic blood 2022-05-07 170 mm[Hg] [place] of pressure 16:32:00 [facility] Diastolic blood 2022-05-07 104 mm[Hg] [place] o f pressure 16:32:00 [facility] Heart rate 2022-05-07 87 /min [facility] ::00 [facility] Body temperature 2022-05-07 37.11 Lynne [facility] 16::00 [facility] Respiratory rate 2022-05-07 17 /min [facility] ::00 [facility] Body height 2022-05-07 174 cm [facility] 16:29:00 [facility] Body weight 2022-05-07 90.81 kg [facility] 16:29:00 [facility] BMI 2022-05-07 30.00 kg/m2 [facility] 16:29:00 [facility] Oxygen saturation 2022-05-07 100 /min [facility] in Arterial blood 16:29:00 [facility] by Pulse oximetry Scalf Systolic blood 2022-03-21 150 mm[Hg] [facility] 17:16[facility]00 of Medicine Diastolic blood 2022-03-21 94 mm[Hg] [facility] pressure 17:16:00 of Medicine Heart rate 2022-03-21 82 /min [employer] 17:16:00 of Medicine Body temperature 2022-03-21 36.22 Lynne [facility] Jr ege 17:16:00 of Medicine Respiratory rate 2022-03-21 16 /min [facility] Jr ege 17:16:00 of Medicine Body height 2022-03-21 172.7 cm [facility] 17:16:00 of Medicine Body weight 2022-03-21 92.443 kg [facility] 17:16:00 of Medicine BMI 2022-03-21 30.99 kg/m2 [facility] 17:16:00 of Medicine Oxygen saturation 2022-03-21 100 /min [facility] Col lege in Arterial blood 17:16:00 of Medicin e by Pulse oximetry Systolic blood 2022-02-05 142 mm[Hg] [facility] Colleg e pressure 18:30:00 of Medicine Diastolic blood 2022-02-05 80 mm[Hg] [facility] Colle ge pressure 18:30:00 of Medicine Heart rate 2022-02-05 96 /min [facility] 18:30:00 of Medicine Body temperature 2022-02-05 36.67 Lynne [facility] Jr ege 18:30:00 of Medicine Respiratory rate 2022-02-05 16 /min [facility] Jr ege 18:30:00 of Medicine Body height 2022-02-05 175.3 cm [facility] 18:30:00 of Medicine Body weight 2022-02-05 92.625 kg [facility] 18:30:00 of Medicine BMI 2022-02-05 30.16 kg/m2 [facility] 18:30:00 of Medicine Oxygen saturation 2022-02-05 97 /min [facility] Col lege in Arterial blood 18:30:00 of Medicin e by Pulse oximetry Systolic blood 2022-01-02 149 mm[Hg] [facility] Colleg e pressure 18:49:00 of Medicine Diastolic blood 2022-01-02 79 mm[Hg] [facility] Colle ge pressure 18:49:00 of Medicine Heart rate 2022-01-02 87 /min [facility] 18:49:00 of Medicine Body temperature 2022-01-02 36.28 Lynne [facility] Jr ege 18:49:00 of Medicine Respiratory rate 2022-01-02 16 /min [facility] Jr ege 18:49:00 of Medicine Body height 2022-01-02 172.7 cm [facility] 18:49:00 of Medicine Body weight 2022-01-02 91.627 kg [facility] 18:49:00 of Medicine BMI 2022-01-02 30.71 kg/m2 [facility] 18:49:00 of Medicine Oxygen saturation 2022-01-02 99 /min [facility] lege in Arterial blood 18:49:00 of Medicin e by Pulse oximetry Systolic blood 2021-11-06 144 mm[Hg] University of pressure 17:00:00 [facility] Diastolic blood 2021-11-06 90 mm[Hg] University o f pressure 17:00:00 [facility] Heart rate 2021-11-06 72 /min University of 17:00:00 [facility] Respiratory rate 2021-11-06 16 /min University of 17:00:00 [facility] Oxygen saturation 2021-11-06 98 /min [facility] in Arterial blood 17:00:00 [facility] by Pulse oximetry Scalf Body temperature 2021-11-06 36 Lynne University of 14:24:00 [facility] Body height 2021-11-06 172.7 cm University of 14:24:00 [facility] Body weight 2021-11-06 88.451 kg University of 14:24:00 [facility] BMI 2021-11-06 29.65 kg/m2 University of 14:24:00 [facility] Systolic blood 2021-10-16 148 mm[Hg] University of pressure 20:21:00 [facility] Diastolic blood 2021-10-16 92 mm[Hg] University o f pressure 20:21:00 [facility] Heart rate 2021-10-16 83 /min University of 20:18:00 [facility] Body temperature 2021-10-16 37.39 Lynne University of 20:18:00 [facility] Respiratory rate 2021-10-16 18 /min University of 20:18:00 [facility] Body height 2021-10-16 175.3 cm University of 20:18:00 [facility] Body weight 2021-10-16 89.982 kg University of 20:18:00 [facility] BMI 2021-10-16 29.29 kg/m2 University of 20:18:00 [facility] Oxygen saturation 2021-10-16 100 /min University of in Arterial blood 20:18:00 [facility] by Pulse oximetry Branch Systolic blood 2021-06-03 125 mm[Hg] University of pressure 20:08:00 [facility] Diastolic blood 2021-06-03 78 mm[Hg] University o f pressure 20:08:00 [facility] Heart rate 2021-06-03 79 /min University of 20:08:00 [facility] Body temperature 2021-06-03 36.78 Lynne University of 20:08:00 [facility] Respiratory rate 2021-06-03 18 /min University of 20:08:00 [facility] Body height 2021-06-03 172.7 cm University of 20:08:00 [facility] Body weight 2021-06-03 92.987 kg University of 20:08:00 [facility] BMI 2021-06-03 31.17 kg/m2 University of 20:08:00 [facility] Oxygen saturation 2021-06-03 98 /min University of in Arterial blood 20:08:00 [facility] by Pulse oximetry Branch Systolic blood 2021-05-08 169 mm[Hg] University of pressure 01:03:00 [facility] Diastolic blood 2021-05-08 96 mm[Hg] University o f pressure 01:03:00 [facility] Heart rate 2021-05-08 71 /min University of 01:02:00 [facility] Respiratory rate 2021-05-08 20 /min University of 01:02:00 [facility] Body height 2021-05-08 172.7 cm University of 01:02:00 [facility] Body weight 2021-05-08 97.659 kg University of 01:02:00 [facility] BMI 2021-05-08 32.74 kg/m2 University of 01:02:00 [facility] Oxygen saturation 2021-05-08 99 /min University of in Arterial blood 01:02:00 [facility] jono by Pulse oximetry Branch Oxygen saturation 2021-12-18 97 /min [facility] in Arterial blood 11:20:00 Medical nter by Pulse oximetry Systolic blood 2021-12-18 147 mm[Hg] [facility] pressure 11:20:00 [facility] Diastolic blood 2021-12-18 69 mm[Hg] [facility] pressure 11:20:00 [facility] Heart rate 2021-12-18 72 /min [facility] 11:20:00 [facility] Body temperature 2021-12-18 36.[address] [facility] 11:[facility]00 [facility] Respiratory rate 2021-12-18 18 /min [facility]00 [facility] Body height 2021-12-11 175 cm [facility] 05[facility]01:00 [facility] Body weight 2021-12-11 88.451 kg patient stated [facility] 05:01:[address] [facility] BMI 2021-12-11 28.88 kg/m2 [facility] 05:01:00 [facility] Procedures Procedure Date / Time Performing Clinician Source Performed POCT MOLECULAR FLU 2022-05-07 17:11:00 Unknown, Attending [facility] XR CHEST 2 VW 2022-05-07 17:10:00 Amanda Park [facility] COVID-19 (MOLECULAR 2022-05-07 17:08:00 Graham Merchant [facility] NUCLEIC ACID AMPLIFICATION) LAB ONLY COVID 2022-05-07 17:08:00 Mayur [facility] POCT MOLECULAR STREP 2022-05-07 17:07:00 Unknown, Attending [facility] AMB REF TO SPINE CENTER 2022-02-05 13:57:11 [facility] Medicine AMB REF TO PT EXTERNAL 2022-01-02 14:20:01 [facility] CBC W/PLT COUNT & AUTO 2021-12-18 04:25:00 Bear Vyas [facility] DIFFERENTIAL [facility] BASIC METABOLIC PANEL 2021-12-18 04:25:00 Bear Vyas [facility] CBC W/PLT COUNT & AUTO 2021-12-18 04:25:00 Bear Vyas [facility] DIFFERENTIAL [facility] FL FLUORO NON-SPECIFIC UP 2021-12-17 11:43:00 Dion Dow [facility] TO 1 HOUR Center LAMINECTOMY, SPINE, 2021-12-17 10:33:00 Dion Dow [facility] LUMBAR, WITH DISCECTOMY Center PROCEDURE W/ C-ARM 2021-12-17 10:33:00 Dion Dow [facility] CBC W/PLT COUNT & AUTO 2021-12-17 04:26:00 Bear Vyas [facility] BASIC METABOLIC PANEL 2021-12-17 04:26:00 Bear Vyas [facility] CBC W/PLT COUNT & AUTO 2021-12-17 04:26:00 Valentin [facility] DIFFERENTIAL [place] SARS-COV2/RT-PCR ([facility] & 2021-12-16 14:50:00 [facility] Center SCREEN, URINE 2021-12-16 11:49:00 Mario Rice [facility] ABORH, MANUAL 2021-12-16 04:51:00 Rebeca Mal[facility] PT/APTT 2021-12-16 04:02:00 Valentin [facility] CBC W/PLT COUNT & AUTO 2021-12-16 04:02:00 Bear Vyas [facility] BASIC METABOLIC PANEL 2021-12-16 04:02:00 Bear Vyas [facility] TYPE AND SCREEN, 2021-12-16 04:02:00 Valentin [facility] AUTOMATED Center CBC W/PLT COUNT & AUTO 2021-12-16 04:02:00 Valentin [facility] ECG 12-LEAD 2021-12-15 15:19:20 Valentin [facility] XR CHEST 1 VIEW PORTABLE 2021-12-15 14:06:00 [facility] BED[facility]IDE Center BASIC METABOLIC PANEL 2021-12-12 04:08:00 Farzaneh Cartwright [facility] HEPATIC FUNCTION PANEL 2021-12-12 04:08:00 Farzaneh Cartwright [facility] CBC W/PLT COUNT & AUTO 2021-12-12 04:08:[address] [facility] DIFFERENTIAL Center CBC W/PLT COUNT & AUTO 2021-12-12 04:08:00 Farzaneh Cartwright [facility] DIFFERENTIAL Center SARS-COV2/RT-PCR ([facility] & 2021-12-11 13:54:00 Bear Vyas [facility] REF LABS) [facility] MR LUMBAR SPINE WITHOUT 2021-12-11 08:45:00 Lakhwinder [place] [facility] PELVIS W 2021-11-06 15:49:20 Roberto Aye [facility] CONTRAST Medical Branch POCT TEST 2021-11-06 15:17:00 [facility] LIPASE 2021-11-06 15:11:00 [facility] MET[facility]OLIC PANEL 2021-11-06 15:11:00 Roberto Aye [facility] ([id number]) Medical Scalf CBC WITH DIFF 2021-11-06 15:11:00 [facility] URINALYSIS 2021-11-06 14:37:00 [place] [facility] NOTICE OF PRIVACY 2021-11-06 14:26:59 [facility] PRACTICES [place] [facility] CONSENT/REFUSAL FOR 2021-11-06 14:19:53 Doctor Unassigned, [facility] DIAGNOSIS AND TREATMENT [place] [facility] POCT MOLECULAR STREP 2021-10-16 20:24:00 Tristan Trejo [facility] ASSIGNMENT OF BENEFITS 2021-10-16 20:13:33 Doctor Unassigned, [facility] Name Medical Branch [id number] 2019-10-06 00:00:00 [facility] [id number] 2019-10-06 00:00:00 [facility] Plan of Care Planned Activity Planned Date Details Comments Source Future Scheduled 2022-03-22 COVID-19 Vaccine (3 - Ba [facility] 10:38:11 Booster for Pfizer Medicine series) [code = COVID-19 Vaccine (3 - Booster for Pfizer series)] Future Scheduled 2022-03-22 FLU VACCINE > 6 MONTHS B [facility] of Test 10:38:11 [code = FLU VACCINE > 6 Medi cine MONTHS] Future Scheduled 2022-03-22 BMI FOLLOW UP PLAN [code [facility] of Test 10:38:11 = BMI FOLLOW UP PLAN] Medici ne Future Scheduled 2022-03-22 TETANUS SHOT (ADULT) [facility] of Test 10:38:11 [code = TETANUS SHOT Medicin e (ADULT)] Future Scheduled 2022-03-22 Hepatitis C screening Ba [facility] of Test 10:38:11 (procedure) [code = Medicine 610471976] Future Scheduled 2022-03-22 Human immunodeficiency B [facility] of Test 10:38:11 virus screening Medicine (procedure) [code = 990616419] Future Scheduled 2022-03-22 Screening for malignant [facility] of Test 10:38:11 neoplasm of cervix Medicine (procedure) [code = 710055426] Future Scheduled 2022-02-07 INFLUENZA VACCINE (#1) C [facility] Test 00:00:00 [code = INFLUENZA VACCINE [facility] (#1)] Future Scheduled 2022-02-06 TETANUS SHOT (ADULT) [facility] of Test 08:40:13 [code = TETANUS SHOT Medicin e (ADULT)] Future Scheduled 2022-02-06 Hepatitis C screening [facility] of Test 08:40:13 (procedure) [code = Medicine 306572865] Future Scheduled 2022-02-06 Human immunodeficiency B [facility] of Test 08:40:13 virus screening Medicine (procedure) [code = 731897932] Future Scheduled 2022-02-06 Screening for malignant [facility] of Test 08:40:13 neoplasm of cervix Medicine (procedure) [code = 067356635] Future Scheduled 2022-02-06 COVID-19 Vaccine (3 - Ba [facility] of Test 08:40:13 Booster for Pfizer Medicine series) [code = COVID-19 Vaccine (3 - Booster for Pfizer series)] Future Scheduled 2022-02-06 FLU VACCINE > 6 MONTHS B [facility] of Test 08:40:13 [code = FLU VACCINE > 6 Medi cine MONTHS] Future Scheduled 2022-02-06 BMI FOLLOW UP PLAN [code [facility] of Test 08:40:13 = BMI FOLLOW UP PLAN] Medici ne Future Scheduled 2022-01-02 TETANUS SHOT (ADULT) [facility] 15:02:18 [code = TETANUS SHOT Medicin e (ADULT)] Future Scheduled 2022-01-02 Hepatitis C screening Ba [facility] 15:02:18 (procedure) [code = Medicine 066429686] Future Scheduled 2022-01-02 Human immunodeficiency B [facility] 15:02:18 virus screening Medicine (procedure) [code = 131840401] Future Scheduled 2022-01-02 Screening for malignant [facility] Test 15:02:18 neoplasm of cervix Medicine (procedure) [code = 300767927] Future Scheduled 2022-01-02 COVID-19 Vaccine (3 - Ba [facility] 15:02:18 Booster for Pfizer Medicine series) [code = COVID-19 Vaccine (3 - Booster for Pfizer series)] Future Scheduled 2022-01-02 FLU VACCINE > 6 MONTHS B [facility] Test 15:02:18 [code = FLU VACCINE > 6 Medi cine MONTHS] Future Scheduled 2022-01-02 BMI FOLLOW UP PLAN [code [facility] Test 15:02:18 = BMI FOLLOW UP PLAN] Medici ne Future Scheduled 2005 Screening for malignant [facility] Test 00:00:00 neoplasm of cervix Medical C enter (procedure) [code = 502662912] Future Scheduled 2003-11-06 DTAP/TDAP/TD VACCINES ([address] [facility] Test 00:00:00 - Tdap) [code = Medical Cent er DTAP/TDAP/TD VACCINES (1 - Tdap)] Future Scheduled 2002 HEPATITIS C [facility]CRE[facility]ING [facility] Test 00:00:00 [code = HEPATITIS C Medical Center SCREENING] Future Scheduled [address] [facility] Test 00:00:00 Counseling and Screening Med ical Center (12+) [code = Tobacco Cessation Counseling and Screening (12+)] Future Scheduled 1985-05-08 COVID-19 VACCINE (#1) [facility] Test 00:00:00 [code = COVID-19 VACCINE Med ical Center (#1)] Encounters Start End Encounter Admission Attending Care Care Encounter Source Date/Time Date/Time Type Type Clinicians Facility Department ID 2019-11-16 Inpatient [facility] NIKKO [id number] [facility] 15:52:00 62 [facility] 2019-10-16 Inpatient EM Dalton, [facility] MEDI.01 [id number] [facility] 01:11:00 Sanna [facility] [place] 2019-10-06 Inpatient EM Dalton, [facility] LD [id number] [facility] 00:27:00 Sanna 30 [facility] [place] 2019-09-15 [facility] [id number] [facility] 13:41:00 Sanna 76 [facility] [place] 2019-09-08 [facility] [id number] [facility] 14:47:00 Sanna 45 [facility] [place] 2019-08-14 Inpatient EL Hoffman, [facility] OBANTE [id number] [facility] 17:43:00 Sanna 52 [facility] [place] 2019-07-29 [facility] OB[facility]TE [id number] [facility] 10:30:00 Sanna 81 [facility] [place] 2019-06-30 Inpatient [place], [facility] ROMAN [id number] [facility] 21:41:00 Sanna 94 [facility] [place] 2022-05-08 2022-05-08 Letter ALYSA Sargent [id number] Univers 00:00:00 00:00:00 (Out) Fernanda ALLI [id number] it y of [facility] [id number] Yogesh as [id number] [address] 2022-05-07 2022-05-07 [facility] [id number] Univers 11:02:14 23:59:00 Encounter [facility] [id number] ity [facility] [id number] Yogesh as ANN?BLEA [id number] Md sydnee TREY 8 [facility] MEDICAL OFFICE BUILDING 2022-05-07 2022-05-07 Outpatient R MAYUR [facility] [id number] Univers 10:20:00 11:40:39 GRAHAM lazaro [facility] 2022-05-07 2022-05-07 Urgent Graham Merchant [facility] [id number] Univers 10:20:00 11:40:39 Care Unknown, Attending HEALTH [id number] ity of [place] [id number] Yogesh as ANN?BLEA [phone] [address] MEDICAL OFFICE [facility] 2022-03-21 2022-03-21 Office Dion Dow [facility] [id number] [facility] 12:00:00 12:45:41 Visit B AMBULATOR [id number] College Y [id number] of [id number] Medi cecelia 300 e 2022-02-05 2022-02-05 Office DION DOW [facility] [id number] [facility] 13:09:11 14:03:47 Visit AMBULATOR [id number] College Y [id number] of [id number] Medi cecelia 300 e 2022-01-02 2022-01-02 Office JOSELYN [facility] [id number] [facility] 13:42:17 14:32:53 Visit DEX AMBULATOR [id number] College Y 0.2.7.2.686 of [id number] Medi cecelia 300 e 2021-12-11 2021-12-18 Inpatient ER TANYA [facility] Surgery [id number] [facility] 03:34:00 15:16:00 [facility] 2021-12-11 2021-12-18 Hospital Constantino Stone [facility] [id number] [facility] 03:34:00 15:16:00 [facility] 2021-12-17 2021-12-17 Surgery Dion Dow [facility] [id number] 10:30:00 13:23:[address] [facility] 2021-12-17 2021-12-17 Anesthesia Camila Randle [facility] [id number] [facility] 10:48:00 13:05:00 Event Jeovany [facility] 2021-12-15 2021-12-15 Outpatient [facility] [id number] [facility] 00:00:00 23:59:00 Colleg e of Medicin e 2021-11-06 2021-11-06 Emergency X MEJIA, [facility] ERT [id number] Univers 09:30:00 13:05:00 AYE ithenrietta [facility] 2021-11-06 2021-11-06 Emergency [facility] [id number] Univers 09:30:00 13:05:00 Aye SKY 350.1.13.10 i ty [facility] 4.2.7.2.686 [place] [facility] [phone] [place] [address] [place] 2021-11-06 2021-11-06 Orders Doctor ALYSA 1.2.840.114 [id number] Univers 00:00:00 00:00:00 Only Unassigned, ALLI 350.1.13.10 ity of [place] [facility] 4.2.7.2.686 Yogehs as [id number] [address] 2021-10-16 2021-10-16 [facility] 1.2.840.114 [id number] Univers 15:20:00 15:40:00 [facility] [employer] [facility] 350.1.13.10 it y of [place] 4.2.7.2.686 Yogesh as ANN?BLEA [phone] [address] MEDICAL OFFICE BUILDING 2021-10-16 2021-10-16 Outpatient R CLAY [facility] [id number] Univers 15:20:00 15:20:00 [facility] 2021-10-16 2021-10-16 Orders Doctor ALYSA 1.2.840.114 [id number] Univers 00:00:00 00:00:00 Only Unassigned, ALLI 350.1.13.10 ity of [place] [facility] 4.2.7.2.686 Yogesh as [phone] [address] 2021-06-03 2021-06-03 Outpatient R SARAH [facility] [id number] Univers 13:20:00 15:39:32 FELIPA lazaro [facility] 2021-06-03 2021-06-03 Urgent Sarah [facility] 1.2.952.453 [id number] Univers 13:20:00 13:40:00 Care Felipa HEALTH 350.1.13.10 it y of [facility] 4.2.7.2.686 Yogesh as ANN?BLEA [phone] [address] OFFICE [facility] 2021-05-07 2021-05-07 [facility]patient [facility] [id number] Univers 19:00:00 19:13:51 LEANN ity [facility] 2021-05-07 2021-05-07 Urgent [facility] 1.2.840.114 [id number] Univers 18:53:36 19:13:51 Care Leann HEALTH 350.1.13.10 it y of [place] 4.2.7.2.686 Yogesh as ANN?BLEA [phone] [address] OFFICE [facility] 2020-02-04 2020-02-04 Letter ALYSA Cifuentes 1.2.840.114 [id number] 00:00:00 00:00:00 (Out) Yesi T ALLI 350.1.13.10 HOSPITAL 4.2.7.2.686 [id number] [facility] 2020-02-04 2020-02-04 Letter ALYSA Cifuentes 1.2.840.114 [id number] Univers 00:00:00 00:00:00 (Out) Yesi T ALLI 350.1.13.10 it y of HOSPITAL 4.2.7.2.686 Yogesh as [phone] [address] 2020-02-01 2020-02-01 Laboratory Lab, [facility] 1.2.840.114 [id number] 15:55:19 16:15:19 Only Fam Pob I Health 350.1.13.10 [place] 4.2.7.2.686 Professio [phone] [place] [address] [address] 2020-02-01 2020-02-01 Laboratory Lab, [facility] Fam Pob I [facility] 1.2. 840.114 [id number] Univers 15:55:19 16:15:19 Only Anene, [facility] 350.1.13.10 ity of [place] 4.2.7.2.686 Yogesh as Professio [phone] Md dical [place] [address] [address] 2020-02-01 2020-02-01 Outpatient R [facility] [id number] Univers 16:00:00 16:00:00 [facility] Results Test Description Test Time Test Comments Results Result Comments Source POCT MOLECULAR STREP 2022-05-07 17:15:24 Test Item Value Reference Range Interpretation Comme nts POCT Molecular Strep (test code = 28500-4) Negative Negative Lab Interpretation (test code = 57132-2) Normal [facility] [id number] 17:14:43 Test Item Value Reference Range Interpretation Comments POCT Molecular FluB (test code = Positive Negative A 93908-7) Lab Interpretation (test code = Abnormal 11089-6) [facility]OLIC [id number] 05:11:01 Test Item Value Reference Range Interpretation Comments SODIUM (BEAKER) 137 meq/L 136-145 (test code = 381) POTASSIUM (BEAKER) 4.4 meq/L 3.5-5.1 (test code = 379) CHLORIDE (BEAKER) 103 meq/L 98-107 (test code = 382) CO2 (BEAKER) (test 25 meq/L 22-29 code = 355) BLOOD UREA NITROGEN 18 mg/dL 7-21 (BEAKER) (test code = 354) CREATININE (BEAKER) 0.77 mg/dL 0.57-1.25 (test code = 358) GLUCOSE RANDOM 140 mg/dL 70-105 H (BEAKER) (test code = 652) CALCIUM (BEAKER) 9.4 mg/dL 8.4-10.2 (test code = 697) EGFR (BEAKER) (test 84 mL/min/1.73 ESTIMA CHEYENNE GFR IS code = 1092) sq m NOT ACCURATE CREATININE CLEARANCE IN PREDICTING GLOMERULAR FILTRATION RATE . ESTIMATED GFR I S NOT APPLICABLE FOR DIALYSIS PATIEN TS. Tele[employer] Network Manager ID - PIAYA LCBC W/PLT COUNT & AUTO [id number] 04:55:58 Test Item Value Reference Range Interpretation [...] 2801) FL, FLUORO, NON-SPECIFIC, UP TO 1 [id number] 11:44:00Reason for exam:- >Lumbar disc herniation [facility] CENTERName: FELICIA CONDE : 1985 Sex: FFINAL REPORT FL, FLUORO, NON-SPECIFIC, UP TO 1 HOUR CLINICAL INDICATION: Lumbar disc herniation COMPARISON: None IMPRESSION: A single lateral view of the lumbar spine is obtained intraoperatively. The surgical screw is seen at the right L5-S1 level posteriorly. Results were communicated to Dr. Dow, who concurred with the above findings. Signed: Parrish Buchanan [facility] Verified Date /Time: 12/17/2021 11:44:43 Reading Location: [facility] Radiology Reading Room C METABOLIC [id number] 05:14:37 Test Item Value Reference Range Interpretation [...] 697) EGFR (BEAKER) (test 78 mL/min/1.73 ESTIMA CHEYENNE GFR IS code = 1092) sq m NOT ACCURATE CREATININE CLEARANCE IN PREDICTING GLOMERULAR FILTRATION RATE . ESTIMATED GFR I S NOT APPLICABLE FOR DIALYSIS PATIEN TS. Telecom Network Manager ID - BENJAMIN WCBC W/PLT COUNT & AUTO [id number] 04:48:53 Test Item Value Reference Range Interpretation [...] 0-1 PERCENT (BEAKER) (test code = 2801) SARS-CoV2/RT-PCR (Asymptomatic ONLY)2021-12-17 00:36:35 Test Item Value Reference Interpretation Comments Range SARS-COV2/RT-PCR Negative Negative The SARS-Co V-2 (test code = target nucleic 54849-1) acids are not detected in thi s specimen. Negat dinora results do not preclude SARS-C oV-2 infection and should not be u sed as the sole bas is for patient management decisions. Nega tive results must be combined with clinical observations, patient history , and epidemiolog ical information. A false negative result may occu r if a specimen is improperly collected, transported or handled. This S ARS CoV-2 test is a rapid, real-thomas e RT-PCR test intended for th e qualitative detection of nucleic acid fr om SARS-CoV-2 in a nasopharyngeal swab specimen collec [place] from individual s suspected of COVID-19 by the ir healthcare provider. TONY (test code = This test has been TONY) authorized by FDA under an EUA for [...] revoked sooner. Fact Sheet for Healthcare Providers: https://www.[employer]/Documents/Xp ert%20Xpress%20SAR S%20CoV-2/Fact%20S heets/3023802%20S ARS-COV-2%20HEALTH CARE%20PROVIDERS%2 0FACT%20SHEET.pdf Fact Sheet for Healthcare Patients: https://www.[employer]/Documents/Xp ert%20Xpress%20SAR S%20CoV-2/Fact%20S heets/302-3801%20S ARS-COV-2%20PATIEN T%20FACT%20SHEET.p df Lab Interpretation Normal (test code = 35780-4) [facility])2021-12-17 00:36:35 Test Item Value Reference Range Interpretation Comments SARS-COV2/RT-PCR Negative Negative The SARS-Co V-2 target (test code = nucleic acids a re not 4649203) detected in thi s specimen. Negative result [...] revoked sooner. Fact Sheet for Healthcare Providers: https://www.[employer]/Documents/Xpert%20Xpress%20SARS%20CoV-2/Fact%20Sheets/302-3802%59UBGV-RPZ-6%20 HEALTHCARE%20PROVIDERS%20FACT%20SHEET.pdf Fact Sheet for Healthcare Patients: https://www.[employer] Simple/Documents/Xpert%20Xp ress%20SARS%20CoV-2/Fact%20Sheets/302-3801%68RCFH-FAE-5%20PATIENT%20FACT%20SHEET .pdfPregnancy Screen, [id number] 12:02:43 Test Item Value Reference Range Interpretation Comments Preg Test, Ur (test code = 2112-1) Negative Negative Lab Interpretation (test code = Normal 67962-6) [facility], [id number] 12:02:43 Test Item Value Reference Range Interpretation Comments TEST URINE (BEAKER) (test Negative Negative code = 583) BASIC METABOLIC [id number] 04:38:33 Test Item Value Reference Range Interpretation [...] 697) EGFR (BEAKER) (test 88 mL/min/1.73 ESTIMA CHEYENNE GFR IS code = 1092) sq m NOT ACCURATE CREATININE CLEARANCE IN PREDICTING GLOMERULAR FILTRATION RATE . ESTIMATED GFR I S NOT APPLICABLE FOR DIALYSIS PATIEN TS. Telecom Network Manager ID - SETH MPT/LAGP2172-34-28 04:34:08 Test Item Value Reference Range Interpretation [...] mechanical heart valves.CBC W/PLT COUNT & AUTO [id number] 04:23:27 Test Item Value Reference Range Interpretation [...] = 2801) RAD, CHEST, 1 VIEW, NON [id number] 14:14:00Reason for exam:- >baselineShould this be performed at the bedside?->Yes [facility] 1985 Sex: FFINAL REPORT INDICATION: baseline COMPARISON: None TECHNIQUE: Single frontal view of the chest. FINDINGS: Lungs and pleura: Clear lungs. No effusion.Heart and mediastinum: Normal heart size. Unremarkable mediastinal contours.Osseous structures: No acute abnormality.Other: None. IMPRESSION: No acute intrathoracic abnormality. Signed: Felicia Salas MDReport Verified Date/Time: 12/15/2021 14:14:14 HEPATIC FUNCTION [id number] 05:23:41 Test Item Value Reference Range Interpretation [...] (test code = 27 U/L 6-55 347) Telecom Network Manager ID - PIAYA LBASIC METABOLIC [id number] 05:23:40 Test Item Value Reference Range Interpretation [...] 697) EGFR (BEAKER) (test 81 mL/min/1.73 ESTIMA CHEYENNE GFR IS code = 1092) sq m NOT ACCURATE CREATININE CLEARANCE IN PREDICTING GLOMERULAR FILTRATION RATE . ESTIMATED GFR I S NOT APPLICABLE FOR DIALYSIS PATIEN TS. Telecom Network Manager ID - PIAYA LCBC W/PLT COUNT & AUTO [id number] 04:43:17 Test Item Value Reference Range Interpretation [...] PERCENT (BEAKER) (test code = 2801) SARS-COV2/RT-PCR ([facility])2021-12-12 02:29:42 Test Item Value Reference Range Interpretation Comments SARS-COV2/RT-PCR (test code = Negative Negative 1606277) Negative result for this test determines that [...] 564(g) of the Act.Testing was performed using K[employer] SARS-CoV-2 assay.Fact Sheet for Healthcare Providers:https://www.Puddle.kaufman/major/RT SARS-CoV-2 HCP Fact Sheet 51- 943920.pdfFact Sheet for Healthcare Patients:https://www.Puddle.kaufman/major/RT SARS-CoV-2 Patient Fact Sheet EN 51-511164L6.pdfMR, SPINE, LUMBAR, WITHOUT [id number] 09:13:00Unlisted Reason for Exam - Click Yes and Enter Reason Below->YesUnlisted Reason for Exam->DischerniationDoes the patient have an implanted electronic device?->No [facility] CENTERName: FELICIA CONDE : 1985 Sex: FFINAL REPORT MR, SPINE, LUMBAR, WITHOUT CONTRAST INDICATION: Unlisted Reason forExamDisc herniation COMPARISON: None TECHNIQUE: Multiplanar, multisequence MR images of the lumbar spine without contrast. FINDINGS: For the purposes of this dictation, the 5 lowermost nonrib-bearing lumbar-type vertebral bodies are labeled L1-L5.Alignment of the lumbar spine is within normal limits. Vertebral body height is maintained. Degenerative edema at the inferior L5 and superior S1 vertebral bodies.Small Schmorl's nodes at the superior L2 and L3 endplates. No spinal cord signal abnormality identified.Cauda equina demonstrates normal appearance.No acute findings in the paraspinal soft tissues. Evaluation of the individual levels demonstrates: L1/L2: Symmetric disc bulge without significant spinal canal or neural foraminal stenosis.L2/L3: Symmetric disc bulge without significant spinal canal or neural foraminal stenosis.L3/L4: No significant canal or foraminal narrowing.L4/L5: Small annular fissure. Symmetric disc bulge without significant spinal canal or neural foraminal stenosis.L5/S1: Right subarticular disc protrusion contacting the exiting right L5 nerve root. Facet arthropathy withmoderate right neural foraminal stenosis IMPRESSION: 1.Large right subarticular disc protrusion at L5-S1 contacting the exiting L5 nerve root and causing moderate right neural foraminal stenosis.2.Small annular fissure at L4-L5. 3.Degenerative edema at the inferior L5 and superior S1 endplates.. Signed: Parrish Buchanan MDReport Verified Date/Time: 12/11/2021 09:13:09 Reading Location: [address] Neuro Reading Room [facility]. METABOLIC PANEL (58888)2021-11-06 16:06:35 Test Item Value Reference Range Interpretation Comments NA (test code = 138 mmol/L 135-145 3540764353) K (test code = 4.2 mmol/L 3.5-5.0 2051088728) CL (test code = 102 mmol/L 98-108 6090642495) CO2 TOTAL (test code = 26 mmol/L 23-31 3089663625) AGAP (test code = 2-16 1909250599) BUN (test code = 6 mg/dL 7-23 L 6261337310) GLUCOSE (test code = 116 mg/dL 70-110 H 3846904675) CREATININE (test code = 0.62 mg/dL 0.50-1.04 5878199143) TOTAL BILI (test code = 0.7 mg/dL 0.1-1.5 2741833734) CALCIUM (test code = 9.5 mg/dL 8.6-10.6 3173235607) T PROTEIN (test code = 7.2 g/dL 6.3-8.2 9977147412) ALBUMIN (test code = 4.4 g/dL 3.5-5.0 6131144028) ALK PHOS (test code = 67 U/L 34-122 2061015400) ALTv (test code = 15 U/L 5-35 2-6) AST(SGOT) (test code = 22 U/L 13-40 9528341330) eGFR (test code = mL/min/1.73m2 0177986503) OTNY (test code = TONY) Association of Glomerular [...] tests). Lab Interpretation Abnormal (test code = 23151-7) [facility]IP[facility]2022-[facility] 16:06:15 Test Item Value Reference Range Interpretation Comments LIPASE (test code = 0969899245) 41 U/L 0-220 Lab Interpretation (test code = Normal 55615-9) [facility] HospitalCB WITH [id number] 15:51:56 Test Item Value Reference Range Interpretation Comments WBC (test code = See_Comment [Automated message] 5990-2) The system [employer] generated this result transmitted ref erence range: 4.30 - 1 1.10 10*3/?L. The re ference range was not u sed to interpret this result as normal/abnor mal. RBC (test code = See_Comment [Automated message] 129-8) The system [employer] generated this result transmitted ref erence range: [...] RDW-SD (test code 44.0 fL 39.0-49.9 = 81801-1) RDW-CV (test code 14.1 % 12.0-15.5 = 788-0) PLT (test code = See_Comment [Automated message] 117-3) The system [employer] generated this result transmitted ref erence range: 166 - 35 8 10*3/?L. The re ference range was not u sed to interpret this result as normal/abnor mal. MPV (test code = 10.0 fL 9.5-12.9 67264-6) NRBC/100 WBC (test See_Comment [Automat ed message] code = 8056061168) The syste m which generated this result transmitted ref erence range: 0.0 - 10 .0 /100 WBCs. The refer ence range was not u sed to interpret this result as normal/abnor mal. NRBC x10^3 (test <0.01 See_Comment [Automated message] code = 1664037262) The syste m which generated this result transmitted ref erence range: 10*3/?L. The reference range was not used to interpr et this result as normal/abnormal . GRAN MAT (NEUT) % 72.0 % (test code = 770-8) IMM GRAN % (test 0.40 % code = 5525728587) LYMPH % (test code 21.6 % = 736-9) MONO % (test code 4.9 % = 5905-5) EOS % (test code = 0.7 % 713-8) BASO % (test code 0.4 % = 706-2) GRAN MAT 4.82 10*3/uL 1.88-7.09 x10^3(ANC) (test code = 1916135412) IMM GRAN x10^3 0.03 10*3/uL 0.00-0.06 (test code = 4799435437) LYMPH x10^3 (test 1.45 10*3/uL 1.32-3.29 code = 731-0) MONO x10^3 (test 0.33 10*3/uL 0.33-0.92 code = 742-7) EOS x10^3 (test 0.05 10*3/uL 0.03-0.39 code = 711-2) BASO x10^3 (test 0.03 10*3/uL 0.01-0.07 code = 704-7) [facility] [id number] 15:17:00 Test Item Value Reference Range Interpretation Comments POCT PREG (test code = 1605) negative On board controls acceptable with present C Line (test code = 3574) POCT PREG LOT # (test code = 3575) [id number] POCT PREG TEST DATE (test 04/08/2023 code = 3576) Lab Interpretation (test code = Normal 02228-5) [facility]PO[facility]LE[facility]ULAR [id number] 20:28:21 Test Item Value Reference Range Interpretation Comments POCT Molecular Strep (test code = Positive Negative A 02587-7) Lab Interpretation (test code = Abnormal 48630-9) [facility] HospitalDRUGS OF ABUSE [id number] 20:44:00 Test Item Value Reference Range Interpretation [...] = PHENCU) 25 ng/m L COMPREHENSIVE METABOLIC [id number] 16:55:00 Test Item Value Reference Range Interpretation [...] units/L 46-116 N code = ALKP) URIC [id number] 16:55:00 Test Item Value Reference Range Interpretation Comments URIC ACID (test code = URIC) 6.2 mg/dL 2.6-6.0 H LACTIC DEHYDROGENASE(LDH)2019-11-16 16:55:00 Test Item Value Reference Range Interpretation Comments LACTIC DEHYDROGENASE(LDH) (test 160 units/L 81-234 N code = LDH) UA RFLX MICR CULT IF [id number] 16:41:00 Test Item Value Reference Range Interpretation [...] SEEN Indication for culture: Suprapubic PainCBC W/AUTO [id number] 16:35:00 Test Item Value Reference Range Interpretation [...] (test NORMAL NORMAL code = PLTMR) Coronavirus 2018 nCoV [id number] 11:09:00 Test Item Value Reference Range Interpretation Comments Coronavirus 2019 nCoV Negative Negative RESUL TS CALLED TO Bedside (test code = Adesuyi ,AREAD BACK & [id number]) CONFIRMED? yes BY FGREGORY.MAF1 02/26 1109 This result fountain s not [...] UNDER AN EMERGENCY USE AUTHORIZATION F ROM [facility] COMPREHENSIVE METABOLIC [id number] 07:48:00 Test Item Value Reference Range Interpretation [...] 81 units/L 46-116 N code = ALKP) [id number] 07:48:00 Test Item Value Reference Range Interpretation Comments MAGNESIUM (test code = MAG) 2.7 mg/dL 1.8-2.4 H CBC W/AUTO [id number] 07:08:00 Test Item Value Reference Range Interpretation [...] NORMAL NORMAL code = PLTMR) B-TYPE NATRIURETIC [id number] 00:38:00 Test Item Value Reference Range Interpretation Comments B-TYPE NATRIURETIC PEPTIDE (test 542.13 pg/mL 0-100 H code = BNP) Comments to Cylinder Checker: Clean CatchSpecimen Comment: Clean Catch- CT HEAD/BRAIN W/O [id number] 00:31:00 Patient Name: FELICIA MCCANN Unit No: [id number] EXAMS: CPT CODE: [id number] CT HEAD/BRAIN W/O CONT 64102 CT HEAD WITHOUT CONTRAST DATED 10/16/2019. INDICATION: [...] Reported andsigned by: Jaiden Durham MD [facility] NAME: FELICIA MCCANN Radiology Department PHYS: SIENNA Marilynn Gian [address] : 1985 AGE: 33 SEX: F [place], [place] LOC: DonovanERS PHONE #: [phone] EXAM DATE: 10/15/2019 STATUS: REG ER FAX #: [phone] RAD NO: Page 1 Signed Report 1 Patient Name: FELICIA MCCANN Unit No: [id number] EXAMS: CPT CODE: [id number] CT HEAD/BRAIN W/O CONT 31498 (Continued) CC: Sanna Hoffman Technologist: ROB RAO, CT, RT CTDI: 60.16 DLP: 1012.10 Trnscrbd D/ (0031) Bhavana [facility] NAME: FLEICIA MCCANN Radiology Department PHYS: SIENNA Gian [address] : 1985 AGE: 33 SEX: F [place], [place] [address] LOC: DAVID PHONE #: [phone] EXAM DATE: 10/15/2019 STATUS: REG ER FAX #: [phone] RAD NO: Page 2 Signed Report1 Patient Name: FELICIA MCCANN Unit No: [id number] EXAMS: CPT CODE: [id number] CT HEAD/BRAIN W/O [id number] (Continued) Orig Print D/T: S: 10/16/2019 (0034) [facility] NAME: FELICIA MCCANN Radiology Department PHYS: Gian Kang [address] : 1985 AGE: 33 SEX: F [place], [place] [address] LOC: DonovanERS PHONE #: [phone] EXAM DATE: 10/15/2019 STATUS: REG ER FAX #: [phone] RAD NO: Page 3 Signed Report 1UR PROTEIN/CREATININE RATIO 2019-10-16 00:23:00 Test Item Value Reference Range Interpretation Comments UR PROTEIN RANDOM (test code = 14.0 mg/dL PROTU) UR CREATININE RANDOM (test 74.0 mg/dL code = CREATU) PROTEIN/CREATININE RATIO (test 180.0 mg/gcrea <200 code = P/CRATIO) - XR CHEST 2 [id number] 00:16:00 Patient Name: EFLICIA MCCANN Unit No: [id number] EXAMS: CPT CODE: [id number] XR CHEST 2 V 13878 EXAM: CR, XR chest 2 views: 10/15/2019, [...] Garrett Cabezas M.D. CC: Sanna Hoffman Technologist: Melinda Nesbitt, RT Trnscrbd D/ (0016) GarethJS38 Orig Print D/T: S: 10/16/2019 (0019) [facility] NAME: FELICIA MCCANN Radiology Department PHYS: SIENNA Marilynn Gian [address] : 1985 AGE: 33 SEX: F [place], [place] [address] LOC: DAVID PHONE #: [phone] EXAM DATE: 10/15/2019 STATUS: REG ER FAX #: [phone] RAD NO: Page 1 Signed ReportDRUGS OF ABUSE [id number] 00:05:00 Test Item Value Reference Range Interpretation [...] BACK & CONFIRME D? Y.BY JEY 10/15/19 3480. DETECTION CUT O FF: 100 ng/mLPrevio usly reported result : POSITIVE Edited by: JEY on 10/16/19:0005OP IAQLU prev. reported as:POSITIVE H . RESULTS CALLED TO .. READ BACK & CONFIRMED? Y. B Y JEY 10/14 8528. UR PHENCYCLIDINE (PCP) NEGATIVE NEGATIVE DETEC TION CUT OFF: (test code = PHENCU) 25 ng/m L Comments to Cylinder Checker: Clean CatchSpecimen Comment: Clean CatchDRUGS OF ABUSE [id number] 00:04:00 Test Item Value Reference Range Interpretation [...] = OPIAQLU) .READ BACK & CONFIRMED? Y.BY JEY 10/14 9523. DETECTION CUT OFF: 100 ng/mL UR PHENCYCLIDINE (PCP) NEGATIVE NEGATIVE DETEC TION CUT OFF: (test code = PHENCU) 25 ng/m L Comments to Cylinder Checker: Clean CatchSpecimen Comment: Clean CatchCOMPREHENSIVE METABOLIC [id number] 23:58:00 Test Item Value Reference Range Interpretation [...] 46-116 N code = ALKP) Comments to Cylinder Checker: Clean CatchSpecimen Comment: Clean CatchCREATINE KINASE (CK)2019-10-15 23:58:00 Test Item Value Reference Range Interpretation Comments CREATINE KINASE (CK) (test code = 81 Units/L 26-192 N CK) Comments to Cylinder Checker: Clean CatchSpecimen Comment: Clean CatchLIPASE 2019-10-15 23:58:00 Test Item Value Reference Range Interpretation Comments LIPASE (test code = LIP) 48 units/L 73-393 L Comments to Cylinder Checker: Clean CatchSpecimen Comment: Clean CatchMAGNESIUM 2019-10-15 23:58:00 Test Item Value Reference Range Interpretation Comments MAGNESIUM (test code = MAG) 1.7 mg/dL 1.8-2.4 L Comments to Cylinder Checker: Clean CatchSpecimen Comment: Clean CatchTHYROID STIMULATING [id number] 23:58:00 Test Item Value Reference Range Interpretation Comments THYROID STIMULATING 0.77 0.36-3.74 N Test Per formed in HORMONE (test code = MicroIn ternational Units/mL TSH) Comments to Cylinder Checker: Clean CatchSpecimen Comment: Clean CatchTROPONIN-I 2019-10-15 23:58:00 Test Item Value Reference Range Interpretation Comments TROPONIN-I (test code = TROPI) 0.043 ng/mL <0.056 N Comments to Cylinder Checker: Clean CatchSpecimen Comment: Clean CatchPROTHROMBIN [id number] 23:41:00 Test Item Value Reference Range Interpretation Comments PROTHROMBIN TIME PATIENT (test code 10.8 secs 10.4-12.4 N = PTP) Comments to Cylinder Checker: Clean CatchSpecimen Comment: Clean CatchIS PATIENT ON ANTICOAGULANTS ? NINTERNATIONAL NORMAL [id number] 23:41:00 Test Item Value Reference Range Interpretation [...] stemic embolism. 3.0 - 3.5 Comments to Cylinder Checker: Clean CatchSpecimen Comment: Clean CatchIS PATIENT ON ANTICOAGULANTS ? NTHROMBOPLASTIN TIME [id number] 23:41:00 Test Item Value Reference Range Interpretation Comments THROMBOPLASTIN TIME PARTIAL (test 30.1 secs 22-38 N code = PTT) Comments to Cylinder Checker: Clean CatchSpecimen Comment: Clean CatchIS PATIENT ON ANTICOAGULANTS ? ND-DIMER [id number] 23:41:00 Test Item Value Reference Range Interpretation [...] is 98% for rulingout DVT. Comments to Cylinder Checker: Clean CatchSpecimen Comment: Clean CatchIS PATIENT ON ANTICOAGULANTS ? NUA RFLX MICR CULT IF [id number] 23:36:00 Test Item Value Reference Range Interpretation [...] = MUCU) RARE NONE SEEN Comments to Cylinder Checker: Clean CatchSpecimen Comment: Clean CatchIndication for culture: Dysuria/FrequencyCBC W/AUTO [id number] 23:29:00 Test Item Value Reference Range Interpretation [...] NORMAL NORMAL code = PLTMR) Comments to Cylinder Checker: Clean CatchSpecimen Comment: Clean CatchFALLOPIAN TUBE,[id number] 13:52:00 RUN DATE: 10/08/19 [facility] PAGE 1 RUN TIME: 1734 Specimen Inquiry RUN USER: INTERFACE -PATIENT: FELICIA MCCANN LOC: [facility] U #: [id number] AGE/SX: 33/F ROOM: [facility] RE[facility]06[facility] DR: Sanna Hoffman MD : 83 BED: A DIS: STATUS: ADM IN TLOC: SPEC #: [id number] RECD: 10/07/19-1009 STATUS: BRENDA HERNANDEZ #: [id number] JR: 10/07/19- SUBM DR: Sanna Hoffman MD ENTERED: 10/07/19-1010 SP TYPE: FALLBX [facility] DR: ORDERED: LEVEL IV CODES: S32178 - FALLOPIAN TUBE PROCEDURES: LEVEL IV (Incom plete) TISSUES: FALLOPIAN TUBE, NOS - RIGHT AND LEFT FALLOPIAN TUBE CLINICAL HISTORY Not provided (wpd) FINAL DIAGNOSIS Right fallopian tube, tubal ligation: - fallopian tube with complete surgical transection, no pathologic alteration Left fallopian tube, tubal ligation: - fallopian tube with complete surgical transection, no pathologic alteration CPT code(s): 28306 x2 kaylene/roger GROSS DESCRIPTION ANATOMIC SOURCE OF TISSUE (per Requisition): Right and left fallopian tubes (received in 2 containers) Each specimen is labeled with the patient's name and medical record number. Specimen #1 is designated "right fallopian tube" and consists of a 5.5 cm in length and 0.6 cm in diameter fimbriated fallopian tube. The serosa is pink-purple and hyperemic. The lumen is pinpoint. Business Objects Architect sections are submitted as A1. Specimen #2 is designated "left fallopian tube" and consists of a 4.5 cm in length and 0.6 cm in diameter fimbriated fallopian tube. The serosa is pink-purple and hyperemic. The lumen is pinpoint. Business Objects Architect sections are submitted as B1. jm/wpd 10/07/19 CONTINUED ON NEXT PAGE --- ---------RUN DATE: 10/08/19 [facility] PAGE 2 RUN TIME: 4214 Specimen Inquiry RUN USER: INTERFACE S MACO #: [id number] PATIENT: FELICIA MCCANN #[id number] (Continued) MICROSCOPIC DESCRIPTION Specimen #1 - the fallopian tube architecture is intact. The lumen is not dilated. A completely transected segment of fallopian tube is present. Specimen #2 - the fallopian tube architecture is intact. The lumen is not dilated. A completely transected segment of fallopian tube is present. kaylene/roger Signed Tiny Jurado 10/08/19 1352 END OF REPORT [facility] [id number] 05:07:00 Test Item Value Reference Range Interpretation Comments HEMOGLOBIN (test code = HGB) 9.3 g/dL 10.7-13.9 L HEMATOCRIT (test code = HCT) 28.3 % 32.1-42.1 L Coronavirus 2019 nCoV [id number] 16:02:00 Test Item Value Reference Range Interpretation Comments Coronavirus 2019 nCoV Negative Negative RESUL TS CALLED TO Bedside (test code = BEERNICE/A PUREAD BACK & SYAOL22JSJGG) CONFIRMED? CHAI F.LAB.GF 10/06/19 1602 T his result does not [...] t be detected or may bedetected less predictably.CEHO T PERFORMED UNDER AN EMERGENCY USE AUTHORIZATION F ROM FDA AG HEPATITIS B [id number] 07:07:00 Test Item Value Reference Range Interpretation Comments AG HEPATITIS B SURFACE (test code NONREACTIVE NONREACTIVE = HBSAG) AB HEPATITIS C [id number] 07:07:00 Test Item Value Reference Range Interpretation Comments AB HEPATITIS C (test code = NONREACTIVE NONREACTIVE HCVAB) SIGNAL TO CUTOFF (test code = 0.13 <0.80 N CUTOFF) AB [id number] 07:07:00 Test Item Value Reference Range Interpretation Comments AB TREPONEMA (test code = TREPAB) NONREACTIVE NONREACTIVE AG HEPATITIS B [id number] 06:50:00 Test Item Value Reference Range Interpretation Comments AG HEPATITIS B SURFACE (test code NONREACTIVE NONREACTIVE = HBSAG) AB HEPATITIS C [id number] 06:50:00 Test Item Value Reference Range Interpretation Comments AB HEPATITIS C (test code = HCVAB) NONREACTIVE SIGNAL TO CUTOFF (test code = CUTOFF) <0.80 AB [id number] 06:50:00 Test Item Value Reference Range Interpretation Comments AB TREPONEMA (test code = TREPAB) NONREACTIVE NONREACTIVE CBC W/AUTO [id number] 02:32:00 Test Item Value Reference Range Interpretation [...] (test NORMAL NORMAL code = PLTMR) URINALYSIS [id number] 23:53:00 Test Item Value Reference Range Interpretation [...] = MUCU) 4+ NONE SEEN Comments to Cylinder Checker: CORETTA RICHARDSON SAMPLE: CLEAN [id number] 14:53:00 Test Item Value Reference Range Interpretation Comments CREATININE (test code = CREAT) 0.9 mg/dL 0.5-1.0 N [id number] 14:53:00 Test Item Value Reference Range Interpretation Comments SGOT/AST (test code = AST) 46 units/L 15-37 H SGPT/[id number] 14:53:00 Test Item Value Reference Range Interpretation Comments SGPT/ALT (test code = ALT) 39 units/L 12-78 N URINALYSIS [id number] 14:28:00 Test Item Value Reference Range Interpretation [...] SEEN URINE SAMPLE: CLEAN CATCHComment MACCBC W/AUTO [id number] 14:24:00 Test Item Value Reference Range Interpretation [...] NORMAL NORMAL code = PLTMR) URINALYSIS W/O [id number] 16:36:00 Test Item Value Reference Range Interpretation Comments UA GLUCOSE DIPSTICK (test code = NEGATIVE NEGATIVE DGLUU) UA KETONE DIPSTICK (test code = TRACE NEGATIVE KETU) UA PROTEIN DIPSTICK (test code = NEGATIVE NEGATIVE PROU) IS NURSE PERFORMING TEST? SHAMEKA PROTEIN/CREATININE [id number] 16:36:00 Test Item Value Reference Range Interpretation Comments UR PROTEIN RANDOM (test code = 37.6 mg/dL PROTU) UR CREATININE RANDOM (test 290.4 mg/dL code = CREATU) PROTEIN/CREATININE RATIO (test 120.0 mg/gcrea <200 code = P/CRATIO) IS NURSE PERFORMING TEST? [id number] 16:16:00 Test Item Value Reference Range Interpretation Comments CREATININE (test code = CREAT) 0.7 mg/dL 0.5-1.0 N [id number] 16:16:00 Test Item Value Reference Range Interpretation Comments SGOT/AST (test code = AST) 15 units/L 15-37 N [id number] 16:16:00 Test Item Value Reference Range Interpretation Comments SGPT/ALT (test code = ALT) 16 units/L 12-78 N CBC W/AUTO [id number] 15:58:00 Test Item Value Reference Range Interpretation [...] NORMAL NORMAL code = PLTMR) URINALYSIS W/O [id number] 15:43:00 Test Item Value Reference Range Interpretation Comments UA GLUCOSE DIPSTICK (test code = NEGATIVE NEGATIVE DGLUU) UA KETONE DIPSTICK (test code = TRACE NEGATIVE KETU) UA PROTEIN DIPSTICK (test code = NEGATIVE NEGATIVE PROU) IS NURSE PERFORMING TEST? SHAMEKA PROTEIN/CREATININE [id number] 15:43:00 Test Item Value Reference Range Interpretation Comments UR PROTEIN RANDOM (test code = mg/dL PROTU) UR CREATININE RANDOM (test code = mg/dL CREATU) PROTEIN/CREATININE RATIO (test code mg/gcrea <200 = P/CRATIO) IS NURSE PERFORMING TEST? SHAMEKA PROTEIN [id number] 13:08:00 Test Item Value Reference Range Interpretation Comments UR PROTEIN RANDOM 21.8 mg/dL (test code = PROTU) UR PROTEIN 24HR 305 mg/24HR 20-150 HH RESULTS CALL ED TO (test code = DONNA NUGENT AD BACK RAMA76P) & CONFIRMED? MAURICIO ClearyBY F.LAB.ELB1 08/07 1308.Units for 24 HR Urine Protein h ave changed: New Un its = MG/24HR UR VOLUME (test code 1400 ML = VOL) COMPREHENSIVE METABOLIC [id number] 15:51:00 Test Item Value Reference Range Interpretation [...] 46-116 N code = ALKP) CBC W/AUTO [id number] 15:25:00 Test Item Value Reference Range Interpretation [...] NORMAL code = PLTMR) UR CREATININE CLEARANCE [id number] 16:27:00 Test Item Value Reference Range Interpretation Comments CREATININE CLEARANCE RESULT (test 180 ml/min 70-120 H code = CREATCLR) CREATININE (test code = CREAT) 0.6 mg/dL 0.5-1.0 N UR CREATININE RANDOM (test code = 120.2 mg/dL CREATU) UR VOLUME (test code = VOL) 1300 ML UR PROTEIN [id number] 16:27:00 Test Item Value Reference Range Interpretation Comments UR PROTEIN RANDOM 23.5 mg/dL (test code = PROTU) UR PROTEIN 24HR (test 306 mg/24HR 20-150 HH RESULT S CALLED TO code = SKLL04Y) APRIL.READ BACK & CONFIRMED? YES. BY FGREGORY.ELAramis 12/26 9067.Units for 24 HR Urine Protein h ave changed: New Un its = MG/24HR AMNISURE (ROM) [id number] 15:13:00 Test Item Value Reference Range Interpretation Comments AMNISURE (ROM) TEST (test code = NON-RUPTURED NON-RUPTURE AMNI) : *Amnisure QC OK? YES- US FET BIO PH OK W/O [id number] 10:31:00 Patient Name: FELICIA MCCANN Unit No: [id number] EXAMS: CPT CODE: [id number] US FET BIO PH OK W/O [id number] [facility] [address], [place] [address] OBSTETRICAL BIOPHYSICAL ULTRASOUND REPORT Pat. Name: FELICIA MCCANN Pat. No: [id number] Study Date: 08/14/2019 9:40am , Age: 05 1985, 33 Pregnancies: 6,Para 1132 LMP: Unknown GA by 1st: 28w6d GA by US: 28w5d GA Selected: 28w6d (From First S) BETSY: 10/31/2019 Referring MD: Sanna Hoffman Credit Reporting Clerk: Shante Lazo RDMS CPT4: USBPPWONST Hist/Ind: HTNSCAN 3 MEASUREMENTS AGEFETAL GROWTH EVALUATION Measurement GA Range Srce %for GA Ratios ----- ---- ------- BPD 7.2 cm 29w1d (25t5j-45e5l) Hadl BPD 57% FL/BPD 0.75 (0.71 - 0.87) HC 27.6 cm 29w6d (05c4c-15r8z) Hadl HC 71% FL/AC 0.21 (0.20 - 0.24) APD 8.2 cm APD HC/AC 1.10 (0.99 - 1.18) TAD 7.7 cm TAD CI 0.73 (0.70 - 0.86) AC 25.0 cm 29w1d (27w0d- 31w2d) Hadl AC 56% FL 5.4 tk76w3h (20a5g-59x5k) Hadl FL 33% HL 5.0 cm 29w2d (07h0j-72r8j) Gian HL 56% GA for sonogram 28w5d (15t4a-71l7p) Weight Estimate: based on (BPD,HC,AC,FL) Hadlock Weight: 1320 gm (3594-8138) Hadlo : 2 lbs, 14oz Normal: 1287 gm (873-1857) Brenne Wt% 52% for 28.9 wks Cervical Length: 3.9 cm HeartRate: 140 bpm Amniotic Fluid Index: 17.2cm (09.2-23.1) Q1: 3.3cm Q2: 2.9cm Q3: 6.5cm Q4: 4.4cm Biophysical Profile: 01/14 Breathin Tone: 2 Movement: 2 AFV: 2 CLINICAL SUMMARY Type of Gestation: Heredia Intrauterine intransverse HEAD RIGHTpresentation. size is appropriate for gestational age. growth: Consistent with normal growth motion and organs seen: heart motion seen body and limb movements observed tone noted breathing movements observed [facility] NAME: FELICIA MCCANN Radiology Department PHYS: Sanna Cavanaugh MD [address] : 1985 AGE: 33 SEX: F [place] [address] LOC: Dhara6 A PHONE #: [phone] DATE: 08/14/2019 STATUS: ADM IN FAX #: [phone] RAD NO: Page 1 Signed Report (CONTINUED) Patient Name: FELICIA MCCANN Unit No: [id number] EXAMS: CPT CODE: [id number] US FET BIO PH OK W/O NST 06600 (Continued) Placental location: Anterior Placental maturity : Grade 1 There is no evidence of placenta previa. Amniotic fluid volume is normal. Uterus and adnexa: No significant abnormality is seen.Thank you for allowing us to participate in the care of this patient. Janie Lovell M.D. Electronic Signature 08/14/2019 10:31am at 1031 Reported and signed by: Janie Lovell MD CC: Sanna Hoffman Technologist: Shante Lazo RDMS Probe: Trnscrbd D/ (1031) t.NMG Orig Print D/T: S: 08/16/2019 (1155) [facility] NAME: FELICIA MCCANN Radiology Department PHYS: Sanna Cavanaugh MD [address] : 1985 AGE: 33 SEX: F [place], [place] [address] LOC: Gary A PHONE #: [phone] EXAM DATE: 08/14/2019 STATUS: ADM IN FAX #: [phone] RAD NO: Page 2 Signed Report Patient Name: FELICIA MCCANN Unit No: [id number] EXAMS: CPT CODE: [id number] US FET BIO PHPR W/O NST 12588 (Continued) [facility] NAME: FELICIA MCCANN Radiology DepartmentPHYS: Sanna Cavanaugh MD [address] : 1985 AGE: 33 SEX: F [place], [place] [address] LOC: Gary Mcginnis PHONE #: [phone] EXAM DATE: 08/14/2019 STATUS: ADM IN FAX #: [phone] RAD NO: Page 3 Signed Report- US FLW [id number] 10:31:00 Patient Name: FELICIA MCCANN Unit No: [id number] EXAMS: [place]: [id number] [address] [facility] [address] [place], [place] [address] OBSTETRICAL BIOPHYSICAL ULTRASOUND REPORT Pat. Name: FELICIA MCCANN Pat. No: [id number] Study Date: 08/14/2019 9:40am , Age: 05 1985, 33 Pregnancies: 6, Para 1132 LMP: Unknown GA by 1st: 28w6d GA by US: 28w5d GA Selected: 28w6d (From First S) BETSY: 10/31/2019 Referring MD: JO PAUL Credit Reporting Clerk: Shante Lazo RDMS CPT4: USPREGFU Admitting MD: SANNA HOFFMAN Hist/Ind: HTN SCAN 3 ME ASUREMENTS AGE GROWTH EVALUATION Measurement GA Range Srce %for GA Ratios ----- ---- ------- BPD 7.2 cm 29w1d (40y5l-29s1a) Hadl BPD 57% FL/BPD 0.75 (0.71 - 0.87) HC 27.6 cm 29w6d (16m2c-50e3o) Hadl HC 71% FL/AC 0.21 (0.20 - 0.24) APD 8.2cm APD HC/AC 1.10 (0.99 - 1.18) TAD 7.7 cm TAD CI 0.73 (0.70 - 0.86) AC 25.0 cm 29w1d (27w0d- 31w2d) Hadl AC 56% FL 5.4 cm 28w0d (84o2p-61i6u) Hadl FL 33% HL 5.0 cm 29w2d (52t2g-94i2v) Gian HL 56% GA for sonogram 28w5d (70i2v-65l8i) Weight Estimate: based on (BPD,HC,AC,FL) Hadlock Weight: 1320 gm(4108-2087) Hadlo : 2lbs, 14oz Normal: 1287 gm [...] and limb movements observed tone noted [facility] NAME: FELICIA MCCANN Radiology Department PHYS: Sanna Cavanaugh MD [address] : 1985 AGE: 33 SEX: F [place], [place] [address] LOC: F.3036 A PHONE #: [phone] EXAM DATE: 12/2019 STATUS: ADM IN FAX #: [phone] RAD NO: Page 1 Signed Report (CONTINUED) Patient Name: FELICIA MCCANN Unit No: [id number] EXAMS: CPT CODE: [id number] [place] [address] (Continued) breathing movements observed Placental location: Anterior [...] D/ (1031) t.NMG Orig Print D/T: S: 08/14/2019 (1031) [facility] NAME: FELICIA MCCANN Radiology Department PHYS: Sanna Cavanaugh MD [address] : 1985 AGE: 33 SEX: [place] [address] LOC: Dhara6 A PHONE #: [phone] EXAM DATE: 08/14/2019 STATUS: ADM IN FAX #: [phone] RAD NO: Page 2 Signed Report Patient Name: FELICIA MCCANN Unit No: [id number] EXAMS: CPT CODE: [id number] [address] (Continued) [facility] NAME: FELICIA MCCANN Radiology Department PHYS: Sanna Cavanaugh MD [address] : 1985 AGE: 33 SEX: F [place], [place] [address] LOC: Dhara6 Ras PHONE #: [phone] EXAM DATE: 08/14/2019 STATUS: ADM IN FAX #: [phone] RAD NO: Page 3 Signed Report GLUCOSE [id number] 09:45:00 Test Item Value Reference Range Interpretation Comments GLUCOSE 2HR (test code = GLU2) 127 mg/dL 70-140 N 3HR GTT GLU2 GLU2HR from 306:CF:[id number].GLUCOSE [id number] 09:42:00 Test Item Value Reference Range Interpretation Comments GLUCOSE 3HR (test code = GLU3) 116 mg/dL 65-110 H 3HR GTT GLU3 GLU3HR from 306:CF:[id number].GESTATION SCREEN [id number] 07:21:00 Test Item Value Reference Range Interpretation Comments GESTATION SCREEN GLUCOSE (test code 142 MG/DL <150 = GLU1S) GLU GEST SCRN 1 HR GLU GLU1S from 306:CF:[id number].GLUCOSE [id number] 05:26:00 Test Item Value Reference Range Interpretation Comments GLUCOSE FASTING (test code = GLUF) 93 mg/dL 65-110 N GLU GEST SCRN GLUFAST GLUFAST from 306:CF:[id number].CHEMISTRY 7 [id number] 15:00:00 Test Item Value Reference Range Interpretation [...] = CA) 8.5 mg/dL 8.4-10.2 N LIVER [id number] 15:00:00 Test Item Value Reference Range Interpretation [...] 46-116 N code = ALKP) CBC W/AUTO [id number] 14:35:00 Test Item Value Reference Range Interpretation [...] NORMAL NORMAL code = PLTMR) UR PROTEIN [id number] 13:01:00 Test Item Value Reference Range Interpretation Comments UR PROTEIN RANDOM 14.5 mg/dL (test code = PROTU) UR PROTEIN 24HR (test 189 mg/24HR 20-150 H Units for 24 HR Urine code = LBAV26I) Protein have changed: New Units = MG/ 24HR UR VOLUME (test code 1300 ML = VOL) - US PREG AFTER [id number] 09:35:00 Patient Name: FELICIA MCCANN Unit No: [id number] EXAMS: CPT CODE: [id number] US PREG AFTER TRI [address] [facility] [address], [place] [address] OBSTETRICAL ULTRASOUND REPORT Pat. Name: FELICIA MCCANN Pat. No: [id number] Study Date: 07/29/2019 9:25pm , Age: 05 1985, 33 Pregnancies: 6, Para 1132 LMP:Unknown GA by 1st: 26w4d GA by US: 26w1d GA Selected: 26w4d (From First S) BETSY: 10/31/2019 ReferringMD: JO PAUL Credit Reporting Clerk: Julianne Portillo RDMS CPT4: DTJTADR9A Admitting MD: SANNA HOFFMAN/Ind: HIGH BP SCAN 2 MEASU REMENTS AGE GROWTH EVALUATION Measurement GA Range Srce %for GA Ratios ---- ------- BPD 6.5 cm 26w3d (85b8l-89c3o) Hadl BPD 46% FL/BPD 0.75 (0.71 - 0.87) HC 24.2 cm 26w0d (64b0g-94h3w) Hadl HC 39% FL/AC 0.21 (0.20 - 0.24) APD 7.3 cm APD HC/AC 1.05 (1.00 - 1.19) TAD 7.3 cm TAD CI 0.80 (0.70 - 0.86) AC 22.9 cm 27w1d (25w0d- 29w3d) Hadl AC 63% FL 4.9 cm 26w1d (06g3x-83n0c) Hadl FL 40% HL 4.5 cm 26w5d (11r1r-33k5h) Gian HL 53% GA for sonogram 26w1d (54b8y-77j3g) Weight Estimate: based on (BPD,HC,AC,FL) Hadlock Weight: 992 gm (847-1137) Hadlock : 2lbs, 2oz Normal: 934 gm (621-1406) Asael Wt% 55% for 26.6 wks Cervical Length:3.5 cm Heart Rate: 137 bpm Amniotic Fluid Index: 13.3cm (09.6-22.5) Q1: 4.8cm Q2: 3.9cm Q3: 3.4cm Q4: 1.3cm MATERNAL ANATOMY Ovaries LxHxW (cm) Right 2.4 x 2.0 x 1.8 Vol: 4.5cc Left 2.6 x 1.5 x 1.9 Vol: 3.9cc CLINICAL SUMMARY Type of Gestation: Heredia Intrauterine in vertex presentation. size isappropriate for gestational age. growth: Consistent with normal growth [facility] NAME: FELICIA MCCANN Radiology Department PHYS: Sanna Cavanaugh MD [address] : 1985 AGE: 33 SEX: F [place], [place] [address] LOC: Laurence.3048 A PHONE #: [phone] EXAM DATE: 07/29/2019 STATUS: ADM IN FAX #: [phone] RAD NO: Page 1 Signed Report (CONTINUED) Patient Name: FELICIA MCCANN Unit No: [id number] EXAMS: CPT CODE: [id number] US PREG AFTER 1ST TRI [address] (Continued) motion and organs seen: heart motion seen body and limb movements seen Four chamber heart observed Left ventricular outflow tract (LVOT) seen Right ventricular outflow tract (RVOT) seen Normal intracranial anatomy seen Umbilical cord insertion in fetus seen F etal stomach, Renal Fossa, Bladder and Spine seen [...] Technologist: Julianne Portillo RDMS Probe: Trnscrbd D/ (934) t.BENJAMINR.YOS Orig Print D/T: S: 07/30/2019 (934) [facility] NAME: FELICIA MCCANN Radiology Department PHYS: Sanna Cavanaugh MD [address] :1985 AGE: 33 SEX: F [place] [address] LOC: F.3048 A PHONE #: [phone] EXAM DATE: 07/29/2019 STATUS: ADM IN FAX #: [phone] RAD NO: Page 2 Signed Report Patient Name: FELICIA MCCANN Unit No: [id number] EXAMS: CPT CODE: [id number] US PREG AFTER 1ST TRI 16953 (Continued) [facility] NAME: FELICIA MCCANN Radiology Department PHYS: Sanna Cavanaugh MD [address] : 1985 AGE: 33 SEX: F [place] [address] LOC: F.3048 A PHONE #: [phone] EXAM DATE: 07/29/2019 STATUS: ADM IN FAX #: [phone] RAD NO: Page 3 Signed ReportGESTATION SCREEN GLUCOSE 2019-07-30 07:59:00 Test Item Value Reference Range Interpretation Comments GESTATION SCREEN GLUCOSE (test code 135 MG/DL <150 = GLU1S) GLU GEST SCRN 1 HR GLU GLU1S from 0221:CF:Z54060D.GLUCOSE [id number] 05:55:00 Test Item Value Reference Range Interpretation Comments GLUCOSE FASTING (test code = GLUF) 96 mg/dL 65-110 N GLU GEST SCRN GLUFAST GLUFAST from 0221:CF:N22316A.[id number] 13:37:00 Test Item Value Reference Range Interpretation Comments CREATININE (test code = CREAT) 0.7 mg/dL 0.5-1.0 N SGOT/[id number] 13:37:00 Test Item Value Reference Range Interpretation Comments SGOT/AST (test code = AST) 12 units/L 15-37 L SGPT/[id number] 13:37:00 Test Item Value Reference Range Interpretation Comments SGPT/ALT (test code = ALT) 15 units/L 12-78 N ALKALINE PHOSPHATASE [id number] 13:37:00 Test Item Value Reference Range Interpretation Comments ALKALINE PHOSPHATASE TOTAL (test 50 units/L 46-116 N code = ALKP) [id number] 13:37:00 Test Item Value Reference Range Interpretation Comments AMYLASE (test code = RAISA) 30 units/L 30-110 N [id number] 13:37:00 Test Item Value Reference Range Interpretation Comments LIPASE (test code = LIP) 60 units/L 73-393 L CBC W/AUTO [id number] 13:19:00 Test Item Value Reference Range Interpretation [...] NORMAL NORMAL code = PLTMR) CHEMISTRY 7 [id number] 23:01:00 Test Item Value Reference Range Interpretation [...] = CA) 8.6 mg/dL 8.4-10.2 N URIC [id number] 23:01:00 Test Item Value Reference Range Interpretation Comments URIC ACID (test code = URIC) 3.7 mg/dL 2.6-6.0 N SGOT/[id number] 23:01:00 Test Item Value Reference Range Interpretation Comments SGOT/AST (test code = AST) 22 units/L 15-37 N [id number] 23:01:00 Test Item Value Reference Range Interpretation Comments SGPT/ALT (test code = ALT) 26 units/L 12-78 N CHEMISTRY 7 [id number] 22:51:00 Test Item Value Reference Range Interpretation [...] = CA) 8.6 mg/dL 8.4-10.2 N URIC [id number] 22:51:00 Test Item Value Reference Range Interpretation Comments URIC ACID (test code = URIC) 3.7 mg/dL 2.6-6.0 N URINALYSIS [id number] 22:35:00 Test Item Value Reference Range Interpretation [...] = MUCU) RARE NONE SEEN Comments to Cylinder Checker: CORETTA MCCORD SAMPLE: CLEAN CATCHCBC W/AUTO DIFF [...] code = PLTMR) - US PREG UT [id number] 20:39:00 Patient Name: FELICIA MCCANN Unit No: [id number] EXAMS: CPT CODE: [id number] US PREG UT TRA NSVAGINAL 30[address] Limited obstetrical ultrasound with transvaginal imaging of [...] compatible with 21 weeks 4 days. The estimatedfetal weight is 465 g (1 pound, 0 [...] [place] MD CC: Sanna Hoffman Technologist: Shante Lazo RDMS Probe: [id number] Trnscrbd D/ (2038) Bhavana Orig Print D/T: S: 06/26/2019 (2041) [facility] NAME: FELICIA MCCANN Radiology Department PHYS: Sanna Dickerson MD [address] : 1985 AGE: 33 SEX: F [place], [place] [id number] LOC: F.ROMAN PHONE #: [phone] EXAM DATE: 06/26/2019 STATUS: REG ER FAX #: [phone] RAD NO: Page 1 Signed Report Patient Name: FELICIA MCCANN Unit No: [id number] EXAMS: CPT CODE: [id number] US PREG UT TRANSVAGINAL [address]65[address] (Continued) [facility] PHYS: Sanna Cavanaugh MD [address] : 1985 AGE: 33 SEX: F [place], [place] [address] LOC: F.ROMAN PHONE #: [phone] EXAM DATE:06/26/2019 STATUS: REG ER FAX #: [phone] RAD NO: Page 2 Signed Report- US FLW UP 2019-06-26 20:39:00 Patient Name: FELICIA MCCANN Unit No: [id number] EXAMS: CPT CODE: [id number] [place] [address] Limited obstetrical ultrasound with transvaginal imaging of [...] placenta previa or retroplacental hemorrhage. Amniotic fluid volumeappears within normal limits with a SDP of 6.9. The cervix is closed with a measured cervical lengthof 4.4 cm on transvaginal imaging. measurements: The [...] Orig Print D/T: S: 06/26/2019 (2041) [facility] NAME: FELICIA MCCANN Radiology Department PHYS: HARSHASilvana Jo Paul MD [address] : 1985 AGE: 33 SEX: F [place] [address] LOC: DonovanROMAN PHONE #: [phone] EXAM DATE: 06/26/2019 STATUS: REG ER FAX #: [phone] RAD NO: Page 1 Signed Report Patient Name: FELICIA MCCANN JULIANNE Unit No: [id number] EXAMS: CPT COD E: [id number] [place] [address] (Continued) [facility] Rad[facility] Department PHYS: HARSHA. Jo Paul MD [address] : 1985 AGE: 33 SEX: F [place] [address] LOC: [place].ROMAN PHONE #: [phone] EXAM DATE: 06/26/2019 STATUS: REG ER FAX #: [phone] RAD NO: Page 2 Signed ReportCOMPREHENSIVE METABOLIC [id number] 20:15:00 Test Item Value Reference Range Interpretation [...] = ALKP) UA RFLX MICR CULT IF [id number] 19:55:00 Test Item Value Reference Range Interpretation [...] RARE-FEW Indication for culture: Suprapubic PainUR PROTEIN/CREATININE [id number] 19:55:00 Test Item Value Reference Range Interpretation Comments UR PROTEIN RANDOM (test code = <6 mg/dL PROTU) UR CREATININE RANDOM (test 22.8 mg/dL code = CREATU) PROTEIN/CREATININE RATIO (test 260.0 mg/gcrea <200 H code = P/CRATIO) Indication for culture: Suprapubic PainUA RFLX MICR CULT IF [id number] 19:51:00 Test Item Value Reference Range Interpretation [...] RARE-FEW Indication for culture: Suprapubic PainUR PROTEIN/CREATININE [id number] 19:51:00 Test Item Value Reference Range Interpretation Comments UR PROTEIN RANDOM (test code = mg/dL PROTU) UR CREATININE RANDOM (test code = mg/dL CREATU) PROTEIN/CREATININE RATIO (test code mg/gcrea <200 = P/CRATIO) Indication for culture: Suprapubic PainCBC W/AUTO [id number] 19:47:00 Test Item Value Reference Range Interpretation [...]
[2022-05-14] MEDS ORDERED: HYDROCODONE/CHLORPHEN 5 ML/OSYR ONE (10:56)
--- NOTE | 2022-05-14 11:57 | RAD REPORT ---
EXAM DESCRIPTION: RAD - Chest Pa And Lat (2 Views) - 05/14/2022 11:38 am CLINICAL HISTORY: COUGH Chest pain. COMPARISON: Chest Single View dated 02/15/2020; Chest Single View dated 02/12/2016; CHEST PA AND LAT 2 V IEW dated 08/29/2015; CHEST PA AND LAT 2 VIEW dated 02/03/2012 FINDINGS: The lungs are clear. The heart is normal in size. No displaced fractures. IMPRESSION: No acute or concerning finding suspected.
--- NOTE | 2022-05-14 12:04 | EDPHYS ---
Physician Documentation [facility] Name: Felicia Cheung Age: 36 yrs Sex: Female : 1985 Arrival Date: 05/14/2022 Time: 10:29 Bed 11 Private MD: ED Physician Jarrell Amato HPI: 05/14 10:53 This 36 yrs old Female presents to ER via Ambulatory with complaints of Chest Pain, rn Cough, Sore Throat. 10:53 The patient or guardian reports chest pain that is located primarily in the anterior rn chest wall, bilaterally. The pain does not radiate. 10:53 Associated signs and symptoms: Pertinent positives: cough, Pertinent negatives: rn abdominal pain, diaphoresis, shortness of breath, syncope. The chest pain is described as sharp, stabbing. Duration: The patient or guardian reports multiple episodes, that are intermittent. Modifying factors: The symptoms are alleviated by nothing. the symptoms are aggravated by cough. Severity of pain: At its worst the pain was moderate in the emergency department the pain is unchanged. The patient has not experienced similar symptoms in the past. The patient has been recently seen by a physician:. Pt reports has been sick for 9 days, diagnosed with Flu with swab, continues to cough and reports sharp stabbing chest pain with cough and twisting. No chronic lung problems. Was too late for tamiflu to be prescribed. . 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 - Social history:: Smoking status: Reported history of juuling and/or vaping. - Family history:: not pertinent. - Hospitalizations: : No recent hospitalization is reported. ROS: 10:53 Constitutional: Negative for fever, chills, and weight loss, Eyes: Negative for injury, rn pain, redness, and discharge, ENT: + congestion and sore throat Neck: Negative for injury, pain, and swelling, Cardiovascular: + chest pain Respiratory: + cough Abdomen/GI: Negative for nausea, and constipation, Back: Negative for injury and pain, MS/Extremity: Negative for injury and deformity, Skin: Negative for injury, rash, and discoloration, Neuro: Negative for numbness, tingling, and seizure. Exam: 10:53 Constitutional: This is a well developed, well nourished patient who is awake, alert, rn and in no acute distress. Head/Face: Normocephalic, atraumatic. Eyes: Periorbital areas with no swelling, redness, or edema. Cardiovascular: Tachycardic, regular. No pulse deficits. Respiratory: Clear bilateral breath sounds. No increased work of breathing, no retractions or nasal flaring. Skin: Warm, dry MS/ Extremity: Pulses equal, no cyanosis. Neuro: Awake and alert, GCS 15 11:23 ECG was reviewed by the Attending Physician. rn Vital Signs: 10:32 BP 139 / 116; Pulse 113; Resp 18; Temp 97.7(T); Pulse Ox 96% on R/A; Weight 83.91 kg; jh5 Height 5 ft. 8 in. (172.72 cm); Pain 6/10; 12:12 BP 121 / 78; Pulse 79; Resp 18; Pulse Ox 100% on R/A; em6 10:32 Body Mass Index 28.13 (83.91 kg, 172.72 cm) [facility] MDM: 10:35 Patient medically screened. rn 12:02 Differential diagnosis: acute pericarditis, anxiety, chest wall pain, costochondritis, rn gastroesophageal reflux disease (GERD), pleurisy, pneumonia, pneumothorax. HEART Score: History: Slightly Suspicious (0), ECG: Normal (0), Age: < or = 45 years (0), Risk Factors: No Risk Factors Known (0), Troponin: < or = 1 x Normal Limit (0), Total Score = 0. Data reviewed: vital signs, nurses notes, EKG, radiologic studies, plain films, and as a result, I will discharge patient. Counseling: I had a detailed discussion with the patient and/or guardian regarding: the historical points, exam findings, and any diagnostic results supporting the discharge/admit diagnosis, radiology results, the need for outpatient follow up, to return to the emergency department if symptoms worsen or persist or if there are any questions or concerns that arise at home. Special discussion: Based on the patient's history, exam, and Dx evaluation, there is no indication for emergent intervention or inpatient Tx. It is understood by the patient/guardian that if the Sx's persist or worsen they need to return immediately for re-evaluation. I discussed with the patient/guardian in detail that at this point there is no indication for admission to the hospital. It is understood, however, that if the symptoms persist or worsen the patient needs to return immediately for re-evaluation. 05/14 10:46 Order name: XRAY Chest Pa And Lat (2 Views); Complete Time: 11:59 rn 05/14 10:46 Order name: EKG; Complete Time: 10:47 rn 05/14 10:46 Order name: EKG - Nurse/Tech; Complete Time: 10:52 rn EC:23 Rate is 88 beats/min. Rhythm is regular. QRS Comins is Normal. MA interval is normal. QRS rn interval is normal. QT interval is normal. No Q waves. T waves are Normal. No ST changes noted. Clinical impression: Normal ECG. Interpreted by me. Reviewed by me. Administered Medications: 10:59 Drug: Tussionex Pennkinetic ER (chlorpheniramine-hydrocodone) Suspension 5 ml Route: PO;db 11:50 Follow up: Response: No adverse reaction; RASS: Alert and Calm (0) em6 Disposition Summary: 05/14/22 12:03 Discharge Ordered Location: Home rn Problem: an ongoing problem rn Symptoms: have improved rn Condition: Stable rn Diagnosis - Influenza due to unidentified influenza virus with other respiratory manifestations rn - Chest pain, unspecified rn Followup: rn - With: Private Physician - When: As needed - Reason: Recheck today's complaints, Re-evaluation by your physician Discharge Instructions: - Discharge Summary Sheet rn - Nonspecific Chest Pain, Adult rn - Chest Wall Pain rn - Influenza, Adult rn Forms: - Medication Reconciliation Form rn - Thank You Letter rn - Antibiotic rn embedded - Prescription Opioid Use rn Prescriptions: - Prednisone 20 mg Oral Tablet - take 3 tablets by ORAL route once daily for 5 days; 15 tablet; Refills: 0, rn Product Selection Permitted - Bromfed DM 2-30-10 mg/5 mL Oral syrup - take 10 milliliter by ORAL route every 4-6 hours; 240 milliliter; Refills: 0, snw Product Selection Permitted - Guaifenesin AC 10-100 mg/5 mL Oral Liquid - take 10 milliliters by ORAL route every 4 hours As needed; 240 milliliter; rn Refills: 0, Product Selection Permitted - Zithromax Z-Jonathan 250 mg Oral Tablet - take 1 tablet by ORAL route as directed for 5 days Day 1 - take two (2) tablets rn one time. Day 2, 3, 4 , 5 take one (1) tablet once daily.; 6 tablet; Refills: 0, Product Selection Permitted Signatures: Dispatcher [employer] Jarrell Naidu MD MD rn Rees, Jessica, RN RN jh5 Mayela Felder RN RN db Martinez, Erika RN em6
--- NOTE | 2022-05-14 12:04 | ER ---
Nurse's Notes [facility] Name: Felicia Cheung Age: 36 yrs Sex: Female : 1985 Arrival Date: 05/14/2022 Time: 10:29 Bed 11 Private MD: Diagnosis: Influenza due to unidentified influenza virus with other respiratory manifestations;Chest pain, unspecified Presentation: 05/14 10:32 Chief complaint: Patient states: tested flu positive 8 days ago; but I am not getting jh5 any better. I dont wanna eat, I have diarrhea. I was dx with Crohn's a couple weeks ago. Today I am having chest pain, and im freaking out. I have this terrible cough x2 weeks. I just feel terrible and I think it's all just compiling up. I feel aweful. Coronavirus screen: Vaccine status: Patient reports receiving the 2nd dose of the covid vaccine. Client denies travel out of the [place] in the last 14 days. Ebola Screen: Patient negative for fever greater than or equal to 101.5 degrees Fahrenheit, and additional compatible Ebola Virus Disease symptoms Patient denies exposure to infectious person. Patient denies travel to an Ebola-affected area in the 21 days before illness onset. Initial Sepsis Screen: Does the patient meet any 2 criteria? Yes Does the patient have a suspected source of infection? No. Patient's initial sepsis screen is negative. Risk Assessment: Do you want to hurt yourself or someone else? Patient reports no desire to harm self or others. Onset of symptoms was April 30, 2022. 10:32 Method Of Arrival: Ambulatory [facility] 10:32 Acuity: COMPA 3 5 Triage Assessment: 10:36 General: Appears uncomfortable, Behavior is calm, cooperative, appropriate for age, jh5 anxious. Pain: Complains of pain in chest. Cardiovascular: Reports chest pain, fatigue. 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 - Social history:: Smoking status: Reported history of juuling and/or vaping. - Family history:: not pertinent. - Hospitalizations: : No recent hospitalization is reported. Screenin:05 Abuse screen: Denies threats or abuse. Nutritional screening: No deficits noted. em6 Tuberculosis screening: No symptoms or risk factors identified. Fall Risk Total [place] Fall Scale indicates No Risk (0-24 pts). Vital Signs: 10:32 BP 139 / 116; Pulse 113; Resp 18; Temp 97.7(T); Pulse Ox 96% on R/A; Weight 83.91 kg; [facility] Height 5 ft. 8 in. (172.72 cm); Pain 6/10; 12:12 BP 121 / 78; Pulse 79; Resp 18; Pulse Ox 100% on R/A; em6 10:32 Body Mass Index 28.13 (83.91 kg, 172.72 cm) [facility] ED Course: 10:29 Patient arrived in ED. as 10:35 Jarrell Amato MD is Attending Physician. rn 10:36 Triage completed. [facility] 10:36 Arm band placed on right wrist. [facility] 10:43 Mayela Felder, AMI is Primary Nurse. db 11:34 XRAY Chest Pa And Lat (2 Views) In Process Unspecified. EDMS 12:05 Placed in gown. Bed in low position. Call light in reach. Side rails up X 1. Pulse ox em6 on. NIBP on. 12:05 Patient maintains SpO2 saturation greater than 95% on room air. em6 12:06 No provider procedures requiring assistance completed. em6 12:12 Patient did not have IV access during this emergency room visit. em6 Administered Medications: 10:59 Drug: Tussionex Pennkinetic ER (chlorpheniramine-hydrocodone) Suspension 5 ml Route: PO;db 11:50 Follow up: Response: No adverse reaction; RASS: Alert and Calm (0) em6 Medication: 12:05 VIS not applicable for this client. em6 Outcome: 12:03 Discharge ordered by . rn 12:12 Discharged to home ambulatory. em6 12:12 Condition: stable 12:12 Discharge instructions given to patient, Instructed on discharge instructions, follow up and referral plans. medication usage, Demonstrated understanding of instructions, follow-up care, medications, Prescriptions given X 3. 12:12 Patient left the ED. em6 Signatures: Dispatcher [employer] Basilia Galaviz as Amato, Jarrell, Marilee Guevara MD, rn, RN RN jh5 Janay Wynne, RN RN em6 Mayela Felder, RN RN db
[2022-05-14 15:14] VITALS: TEMP 97.7
[2022-05-14 15:15] VITALS: BP 121/78; O2SAT 100
--- NOTE | 2022-05-16 05:48 | EKG ---
Test Date: 2022-05-14 Test Time: 10:49:21 Milling Operator: YOVANI MEASUREMENT RESULTS: Intervals: Rate: 88 AR: 148 QRSD: 78 QT: 338 QTc: 408 [place]: P: 70 AR: 148 QRS: 68 T: 43 INTERPRETIVE STATEMENTS: Normal sinus rhythm Normal ECG No previous ECG available for comparison Electronically Signed On 05-16-22 05:45:00 [employer] by Wolf Pendleton
== END 2022-05-14 12:12 | disposition home or self-care (01) ==
LOC: ER 10:26
DX: J11.1 Influenza due to unidentified influenza virus with other respiratory manifestations (principal); Z20.822 Contact with and (suspected) exposure to COVID-19; I10 Essential (primary) hypertension
CPT/HCPCS: 71046; 93005; 99284

== ENCOUNTER 2022-07-30 17:25 | Emergency (ER) | payer OTHER ==
--- OUTSIDE RECORDS SUMMARY | 2022-07-30 17:33 | XMS REPORT | Continuity of Care Document ---
:1985 Author Organization [facility] t Address [address] [place] [address] Care Team Providers Name Role Phone No, Pcp [facility] Primary Care Physician Unavailable Sanna Hoffman Attending Clinician Unavailable BENNIE DOW III Attending Clinician Unavailable King DINA MD, James C Attending Clinician Unknown, Attending Attending Clinician Unavailable Fernanda Sargent RN Attending Clinician Unavailable Graham Hernandez Attending Clinician GRAHAM MERCHANT Attending Clinician Unavailable Dion Dow MD Attending Clinician DION DOW Attending Clinician Unavailable DEX ALVES Attending Clinician Unavailable Chase HUNTER, Shane Rodriguez Attending Clinician [phone] Chay HUNTER, Farzaneh Vicente Attending Clinician Tanya HUNTER, Tashi Attending Clinician TASHI MARTÍNEZ Attending Clinician Unavailable King ELSA, Dion Steele Attending Clinician Jer HUNTER, Camila Thayer Attending Clinician AYE MEJIA Attending Clinician Unavailable Aye Mejia MD Attending Clinician Doctor Unassigned, Koppel Attending Clinician Unavailable Tristan Christian Attending Clinician [...] Type Policy Number Effective Date Expiration Date [facility] [id number] 2019 CHOICE [place] STAR 00:00:00 [facility] [id number] 2019 00:00:00 Problems Condition Condition Condition Status Onset Resolution Last Treating Co mments Source Name Details Category Date Date Treatment Clinician Date 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 Id dical [address] [place] [address] No known No known Disease [facility] [place] active active [place] problems problems of Medicin e Allergies, Adverse Reactions, Alerts Allergy Allergy Status Severity Reaction(s) Onset Inactive Treating Comm ents Source Name Type Date Date Clinician No Known DA Active [facility] 2019[facility]0 [facility] [place] No Known DA Active [facility] 2019-0 [facility] 1-22 [facility] [place] CODEINE DA Active U VOMIT HYPER 2007-0 [facility] 3[facility]14 [facility] [place] No Known DA Active [facility] 2007-0 [facility] Contrast 3-14 [facility] [place] No Known DA Active [facility] 2007-0 [facility] Food 3-14 [facility] [place] No Known DA Active U 2007-0 [facility] Other 3-14 [facility] [place] NO KNOWN Allergy [facility] Drug Active Univers ALLERGIE Class ity of [facility] Social History Social Habit Start Date Stop Date Quantity Comments Source History [facility] Places Medical Ce nter Lived History [facility] Last Year History of Cigarette Smoker [facility] jacqui of tobacco use Medicine History [facility] University o f Alcohol Frequency [place] M edical Branch History [facility] University o f Alcohol Std [place] Medical Drinks Branch History [facility] o f Alcohol Binge [place] Medic al [place] Exposure to 2022-06-24 2022-07-04 Not sure University of SARS-CoV-2 00:00:00 10:45:00 [facility] (event) Branch Alcohol intake 2022-03-21 2022-03-21 Current drinker [facility] of 00:00:00 00:00:00 of alcohol Medicine (finding) History SDOH 2021-12-11 2021-12-[address] [facility] ewa [facility] Unable to 00:00:00 00:00:00 Medical Center Pay Alcohol Comment 2021-06-03 2021-06-03 social Universit y of 00:00:00 00:00:00 [facility] Tobacco use and 2021-05-07 2021-05-07 Smokeless tobacco Un iversity of exposure 00:00:00 00:00:00 non-user [facility] Sex [birth year] BRIJESH Rojas 00:00:00 [facility]:00:00 [facility] Smoking Status Start Date Stop Date Source Unknown if ever smoked Universit y of [facility] Ex-smoker 2022-01-02 00:00:00 2022-01-02 00:00:00 [facility] Never smoked tobacco [facility] Medical Branch Medications Ordered Filled Start Stop Current Ordering Indication Dosage Frequency Signature Comments Components Source Medication Medication Date Date Medication? Clinician (SIG) Name Name MESALAMINE Yes 1000mg Take 1,000 Univers ORAL 1-26 mg by ity of 11:07: mouth 2 [place] 04 (two) Medical times Branch daily. benzonatate Yes [id number] 100mg Take 1 Univers 100 mg 1-26 capsule by ity of capsule 00:00: mouth [place] 00 every 8 Medical (eight) Branch hours as needed for Cough. Methylpredn 2022- Yes [id number] 4mg Take 1 Univers isolone 4 1-26 - tablet by ity of mg tablet 00:00: 05:59 mouth [place] 00 :00 every 12 Medical (twelve) Branch hours for 5 days. albuterol 2021-06 Yes [id number] 2{puff} Inhale 2 Univers 90 1-29 Puffs ity of mcg/actuati 00:00: every 6 Yogesh as on inhaler 00 (six) Medical hours as Branch needed for Wheezing or Shortness of Breath. albuterol 2021-06 Yes [id number] 2{puff} Inhale 2 Univers 90 1-29 Puffs ity of mcg/actuati 00:00: every 6 Yogesh as on inhaler 00 (six) Medical hours as Branch needed for Wheezing or Shortness of Breath. albuterol 2021-06 Yes [id number] 2{puff} Inhale 2 Univers 90 1-29 Puffs ity of mcg/actuati 00:00: every 6 Yogesh as on inhaler 00 (six) Medical hours as Branch needed for Wheezing or Shortness of Breath. albuterol 2021-06 Yes [id number] 2{puff} Inhale 2 Univers 90 1-29 Puffs ity of mcg/actuati 00:00: every 6 Yogesh as on inhaler 00 (six) Medical hours as Branch needed for Wheezing or Shortness of Breath. lisinopril- 2021-06 Yes 1{tbl} Take 1 [facility] hydrochloro 0-13 Tablet by [place] thiazide 12:18: mouth of (PRINZIDE, 04 daily. Medicin ZESTORETIC) e 20-25 MG per tablet methylPREDN 2021-06 Yes [id number] 1{packa Take 1 [facility] ISolone 4 0-13 ge} Package by Jr ege MG TBPK 00:00: mouth See of 00 Admin Medicin Instructio e ns. Medrol dose pack. tramadol 2021-06 Yes [id number] 1{tbl} Take 1 [facility] (ULTRAM) 50 0-07 Tablet by [place] [facility]ge MG tablet 00:00: mouth of 00 every 8 Medicin hours as e needed for Pain. lisinopril- Yes 1{tbl} Take 1 [facility] hydrochloro 8-30 Tablet by [place] [facility] thiazide 13:32: mouth of (PRINZIDE, 10 daily. Medicin ZESTORETIC) e 20-25 MG per tablet tramadol 2021- No [id number] 1{tbl} Take 1 [facility] (ULTRAM) 50 8-29 08-30 Tablet by Co llege MG tablet 00:00: 00:00 mouth of 00 :00 every 8 Medicin hours as e needed for Pain for up to 5 days. oxycodone-a 2021- No [id number] 1{tbl} Take 1 [facility] cetaminophe 8-16 08-30 Tablet by Co llege n 00:00: 00:00 mouth of (PERCOCET) 00 :00 every 6 Medici n 5-325 MG hours as e per tablet needed for Pain. cyclobenzap Yes [id number] 10mg Take 1 [facility] rine 8-15 Tablet by [place] (FLEXERIL) 00:00: mouth 3 of 10 MG 00 times Medicin tablet daily as e needed for Muscle spasms. cyclobenzap Yes [id number] 10mg Take 1 [facility] rine 8-15 Tablet by [place] (FLEXERIL) 00:00: mouth 3 of 10 MG 00 times Medicin tablet daily as e needed for Muscle spasms. oxycodone-a 2021- No 1{tbl} Take 1 [facility] cetaminophe 7-27 07-27 Tablet by Co llege n 14:22: 00:00 mouth of (PERCOCET) 16 :00 every 4 Medici n 10-325 MG hours as e per tablet needed. cyclobenzap 2022-0 Yes 10mg Take 10 mg [facility] rine 7-27 by mouth 3 College (FLEXERIL) 13:56: times of 10 MG 55 daily as Medicin tablet needed for e Muscle spasms. lisinopril- Yes 1{tbl} Take 1 [facility] hydrochloro 7-27 Tablet by [place] [facility]ge thiazide 13:56: mouth of (PRINZIDE, 22 daily. Medicin ZESTORETIC) e 20-25 MG per tablet methylPREDN 0 Yes [id number] 1{packa Take 1 [facility] ISolone 4 7-27 ge} Package by Jr ege MG TBPK 00:00: mouth See of 00 Admin Medicin Instructio e ns. Medrol dose pack. tramadol Yes [id number] 1{tbl} Take 1 [facility] (ULTRAM) 50 7-27 Tablet by Col lege MG tablet 00:00: mouth of 00 every 8 Medicin hours as e needed for Pain. methylPREDN Yes [id number] 1{packa Take 1 [facility] ISolone 4 7-27 ge} Package by Jr ege MG TBPK 00:00: mouth See of 00 Admin Medicin Instructio e ns. Medrol dose pack. methylPREDN 2021- No [id number] 1{packa Take 1 [facility] ISolone 4 7-27 10-13 ge} Package by Col lege MG TBPK 00:00: 00:00 mouth See of 00 :00 Admin Medicin Instructio e ns. Medrol dose pack. lisinopril- Yes 1{tbl} QD Take [address] hydroCHLORO 7-12 tablet by [place] es thiazide 17:34: mouth Medical (PRINZIDE,Z 56 daily. [place] ESTORETIC) 20-25 mg per tablet Yes 1{tbl} QD Take 1 [facility] vitamin 7-12 tablet by [place] w/calcium-i 17:34: mouth Medic al beatris-folate 56 daily. [place] ( PLUS) 27 mg iron- 1 mg Tab lisinopril- Yes 1{tbl} QD Take [address] hydroCHLORO 7-12 tablet by [place] thiazide 17:34: mouth Medical (PRINZIDE,Z 56 daily. [place] ESTORETIC) 20-25 mg per tablet Yes 1{tbl} QD Take 1 [facility] t vitamin 7-12 tablet by [place] w/calcium-i 17:34: mouth Medic al beatris-folate 56 daily. Center ( PLUS) 27 mg iron- 1 mg Tab pregabalin 2022- No 150mg Take 150 [facility] (LYRICA) 12-18 07-13 mg by [place] 150 MG 00:00: 04:59 mouth two of capsule 00 :00 times Medicin daily. e pregabalin 2022- No 150mg Take 150 [facility] (LYRICA) - 07-13 mg by College 150 MG 00:00: 04:59 mouth two of capsule 00 :00 times Medicin daily. e pregabalin 2022- No 150mg Take 150 [facility] (LYRICA) 12-18 07-13 mg by [place] 150 MG 00:00: 04:59 mouth two of capsule 00 :00 times Medicin daily. e pregabalin 2022- No 150mg Q.5D Take [address] (LYRICA) 12-18- capsule [facility] 150 MG 00:00: 23:59 (150 mg Medical capsule 00 :00 total) by Center mouth 2 (two) times daily. Max Daily Amount: 300 mg pregabalin 2022- No 150mg Q.5D Take [address] (LYRICA) 12-18-12 capsule [facility] 150 MG 00:00: 23:59 (150 mg Medical capsule 00 :00 total) by Center mouth 2 (two) times daily. Max Daily Amount: 300 mg cyclobenzap 2021- No 10mg Q.[id number] Take [address] rine 12-18 [id number] tablet (10 Audrey kes (FLEXERIL) 00:00: 23:59 [...] 10 days. Max Daily Amount: 3 tablets cyclobenzap 2021- No 10mg Q.[id number] Take [address] rine 12-18 [id number] tablet (10 Audrey kes (FLEXERIL) 00:00: 23:59 3D mg total) M edical 10 MG 00 :00 by mouth 3 Center tablet (three) times daily for 10 days. oxyCODONE-a 2021- No 1{tbl} Take [address] cetaminophe 12-18 tablet by Audrey kes n 00:00: 23:59 mouth Medical (PERCOCET) 00 [...] times Center packet daily for 3 days. polyethylen 2021- No 17g Q.5D Take [address] e glycol 12-18 by mouth 2 Luke s (GLYCOLAX) 00:00: 23:59 (two) Medic al 17 gram 00 :00 times Center packet daily for 3 days. dicyclomine 2021- No 20mg 20 mg, Uni vers (BENTYL) 11-06 Oral, ity of tablet 20 17:15: 16:25 ONCE, 1 [place] mg 00 :00 dose, On Medical Tue Branch 11/06/21 at 1215, GM maalox:diph No 15mL 15 mL, Uni vers enhydrAMINE 11-06 Oral, ity of :lidocaine 17:15: 16:25 ONCE, 1 Yogesh as 2 % viscous 00 :00 dose, On Medi jono 1:1:1 Tue Branch ([facility] 11/06[facility]21 at [facility]) 1215, GM oral suspension 15 mL [...] 00 :00 dose, On Medi jono mg [facility] Branch 11/06/21 at 1130, GM iopamidol 2021- No [id number] 50mL 50 mL, U nivers (ISOVUE 11-06 Intravenou ity o f 370-500 mL) 15:44: 15:45 s, ONCE, 1 [place] injection 00 :00 dose, On Medica l 50 mL e Branch 11/06/21 at 1100, Routine dicyclomine 2021-0 Yes [id number] 20mg Take 1 Univers 20 mg 5-31 tablet by ity of tablet 00:00: mouth 4 00 (four) Medical times Branch daily. metoclopram 2021-0 Yes [id number] 10mg Take 1 Univers lilliam HCl 10 5-31 tablet by ity of mg tablet 00:00: mouth [place] 00 every 6 Medical (six) Branch hours. pantoprazol 2021-0 Yes [id number] 40mg Take 1 Univers e 40 mg EC 5-31 tablet by ity of tablet 00:00: mouth [place] 00 daily. Medical Branch traMADoL 50 2021-0 Yes [id number] 50mg Take 1 Univ ers mg tablet 5-31 tablet by ity o f 00:00: mouth [place] 00 every 6 Medical (six) Branch hours as needed for Pain (scale 4-6). Indication s: acute pain dicyclomine 2-0 Yes [id number] 20mg Take 1 Univers 20 mg 5-31 tablet by ity of tablet 00:00: mouth 4 [place] 00 (four) Medical times Branch daily. metoclopram 2-0 Yes [id number] 10mg Take 1 Univers lilliam HCl 10 5-31 tablet by ity of mg tablet 00:00: mouth [place] 00 every 6 Medical (six) Branch hours. pantoprazol 2022-0 Yes [id number] 40mg Take 1 Univers e 40 mg EC 5-31 tablet by ity of tablet 00:00: mouth [place] 00 daily. Medical Branch traMADoL 50 2022-0 Yes [id number] 50mg Take 1 Univ ers mg tablet 5-31 tablet by ity o f 00:00: mouth [place] 00 every 6 Medical (six) Branch hours as needed for Pain (scale 4-6). Indication s: acute pain dicyclomine 2022-0 Yes [id number] 20mg Take 1 Univers 20 mg 5-31 tablet by ity of tablet 00:00: mouth 4 [place] 00 (four) Medical times Branch daily. metoclopram 2022-0 Yes [id number] 10mg Take 1 Univers lilliam HCl 10 5-31 tablet by ity of mg tablet 00:00: mouth [place] 00 every 6 Medical (six) Branch hours. pantoprazol 2022-0 Yes [id number] 40mg Take 1 Univers e 40 mg EC 5-31 tablet by ity of tablet 00:00: mouth [place] 00 daily. Medical Branch traMADoL 50 2021-0 Yes [id number] 50mg Take 1 Univ ers mg tablet 5-31 tablet by ity o f 00:00: mouth [place] 00 every 6 Medical (six) Branch hours as needed for Pain (scale 4-6). Indication s: acute pain dicyclomine 2-0 Yes [id number] 20mg Take 1 Univers 20 mg 5-31 tablet by ity of tablet 00:00: mouth 4 [place] 00 (four) Medical times Branch daily. metoclopram 2022-0 Yes [id number] 10mg Take 1 Univers lilliam HCl 10 5-31 tablet by ity of mg tablet 00:00: mouth [place] 00 every 6 Medical (six) Branch hours. pantoprazol 2022-0 Yes [id number] 40mg Take 1 Univers e 40 mg EC 5-31 tablet by ity of tablet 00:00: mouth [place] 00 daily. Medical Branch traMADoL 50 2022-0 Yes [id number] 50mg Take 1 Univ ers mg tablet 5-31 tablet by ity o f 00:00: mouth [place] 00 every 6 Medical (six) Branch hours as needed for Pain (scale 4-6). Indication s: acute pain dicyclomine 2022-0 Yes [id number] 20mg Take 1 Univers 20 mg 5-31 tablet by ity of tablet 00:00: mouth 4 [place] 00 (four) Medical times Branch daily. metoclopram 2022-0 Yes [id number] 10mg Take 1 Univers lilliam HCl 10 5-31 tablet by ity of mg tablet 00:00: mouth [place] 00 every 6 Medical (six) Branch hours. pantoprazol 2021-0 Yes [id number] 40mg Take 1 Univers e 40 mg [...] 10 mg [facility] lilliam 5-31 by mouth. [place] ([facility]) 10 00:00: of MG tablet 00 Medicin e pantoprazol 2021-0 Yes 1{tbl} Take 1 [facility] e 5-31 Tablet by [place] (PROTONIX) 00:00: mouth of 40 MG 00 daily. Medicin tablet e metoclopram 2021-0 Yes 10mg Take 10 mg [facility] lilliam 5-31 by mouth. [place] ([place] [address] 00:00: of MG tablet 00 Medicin e pantoprazol 2021-0 Yes 1{tbl} Take 1 [facility] e 5-31 Tablet by [place] (PROTONIX) 00:00: mouth of 40 MG 00 daily. Medicin tablet e metoclopram 2021-0 Yes 10mg Take 10 mg [facility] lilliam 5-31 by mouth. [place] ([facility] 10 00:00: of MG tablet 00 Medicin e pantoprazol 2021-0 Yes 1{tbl} Take 1 [facility] e 5-31 Tablet by [place] (PROTONIX) 00:00: mouth of 40 MG 00 daily. Medicin tablet e tramadol 2021-0 2021- No 50mg Take 50 mg [facility] (ULTRAM) 50 5-31 07-27 by mouth. Co llege MG tablet 00:00: 00:00 of 00 :00 Medicin e amoxicillin 2-0 2021- No [id number] 875mg Take 1 Univers 875 mg 5-10 [...] days. Indication s: cough predniSONE 2021- No [id number] 40mg Take 2 Univers 20 mg 5-10 05-16 tablets by ity of tablet 00:00: 04:59 mouth [place] 00 :00 daily for Medical 5 days. Branch dicyclomine 2020-06 Yes [id number] 20mg Take 1 Univers 20 mg 2-26 tablet by ity of tablet 00:00: mouth 4 (four) Medical times Branch daily. bromphenira 2020-06 Yes [id number] 5mL Take 5 mL Univers mine-pseudo 2-26 by mouth 3 it y of ephedrine-D 00:00: (three) Yogesh as M (BROMFED 00 times Medical DM) 2-30-10 daily as Bran ch mg/5 mL needed for syrup Cough. dicyclomine 2020-06 Yes [id number] 20mg Take 1 Univers 20 mg 2-26 tablet by ity of tablet 00:00: mouth 4 (four) Medical times Branch daily. bromphenira 2020-06 Yes [id number] 5mL Take 5 mL Univers mine-pseudo 2-26 by mouth 3 it y of ephedrine-D 00:00: (three) Yogesh as M (BROMFED 00 times Medical DM) 2-30-10 daily as Bran ch mg/5 mL needed for syrup Cough. dicyclomine 2020-06 Yes [id number] 20mg Take 1 Univers 20 mg 2-26 tablet by ity of tablet 00:00: mouth 4 (four) Medical times Branch daily. bromphenira 2020-06 Yes [id number] 5mL Take 5 mL Univers mine-pseudo 2-26 by mouth 3 it y of ephedrine-D 00:00: (three) Yogesh as M (BROMFED 00 times Medical DM) 2-30-10 daily as Bran ch mg/5 mL needed for syrup Cough. dicyclomine 2020-06 Yes [id number] 20mg Take 1 Univers 20 mg 2-26 tablet by ity of tablet 00:00: mouth 4 [place] [address] [facility] Medical times Branch daily. bromphenira 2020-06 Yes [id number] 5mL Take 5 mL Univers mine-pseudo 2-26 by mouth 3 it y of ephedrine-D 00:00: (three) Yogesh as M (BROMFED times Medical DM) 2-30-10 daily as Bran ch mg/5 mL needed for syrup Cough. dicyclomine 2020-06 Yes [id number] 20mg Take 1 Univers 20 mg 2-26 tablet by ity of tablet 00:00: mouth 4 [place] [address] ([facility]) Medical times Branch daily. bromphenira 2020-06 Yes [id number] 5mL Take 5 mL Univers mine-pseudo 2-26 by mouth 3 it y of ephedrine-D 00:00: (three) Yogesh as M (BROMFED times Medical DM) 2-30-10 daily as Bran ch mg/5 mL needed for syrup Cough. dicyclomine 2020-06 Yes [id number] 20mg Take 1 Univers 20 mg 2-26 tablet by ity of tablet 00:00: mouth [place] [address] ([facility]) Medical times [place] daily. bromphenira 2020-06 Yes [id number] 5mL Take 5 mL Univers mine-pseudo 2-26 by mouth 3 it y of ephedrine-D 00:00: (three) Yogesh as M (BROMFED times Medical DM) 2-30-10 daily as Bran ch mg/5 mL needed for syrup Cough. dicyclomine 2020-06 Yes [id number] 20mg Take 1 Univers 20 mg 2-26 tablet by ity of tablet 00:00: mouth [place] [address] ([facility]) Medical times [place] daily. bromphenira 2020-06 Yes [id number] 5mL Take 5 mL Univers mine-pseudo 2-26 by mouth 3 it y of ephedrine-D 00:00: (three) Yogesh as M (BROMFED times Medical DM) 2-30-10 daily as Bran ch mg/5 mL needed for syrup Cough. dicyclomine 2020-06 Yes [id number] 20mg Take 1 Univers 20 mg 2-26 tablet by ity of tablet 00:00: mouth 4 [place] [address] ([facility]) Medical times Branch daily. bromphenira 2020-06 Yes [id number] 5mL Take 5 mL Univers mine-pseudo 2-26 by mouth 3 it y of ephedrine-D 00:00: (three) Yogesh as M (BROMFED 00 times Medical DM) 2-30-10 daily as Bran ch mg/5 mL needed for syrup Cough. dicyclomine 2020-06 Yes [id number] 20mg Take 1 Univers 20 mg 2-26 tablet by ity of tablet 00:00: mouth 4 [place] 00 (four) Medical times Branch daily. bromphenira 2020-06 Yes [id number] 5mL Take 5 mL Univers mine-pseudo 2-26 by mouth 3 it y of ephedrine-D 00:00: (three) Yogesh as M (BROMFED 00 times Medical DM) 2-30-10 daily as Bran ch mg/5 mL needed for syrup Cough. bromphenira 2020-06 Yes [id number] 5mL Take 5 mL Univers mine-pseudo 1-29 by mouth 4 it y of ephedrine-D 00:00: (four) [place] M (BROMFED 00 times Medical DM) 2-30-10 daily as Bran ch mg/5 mL needed for syrup Congestion /Allergies . azelastine 2020-06 Yes [id number] 1{spray Use 1 Univers 137 mcg 1-29 } [place] in ity of (0.1 %) 00:00: each [place] nasal spray 00 nostril 2 Med ical (two) Branch times daily. Use in each nostril as directed fluticasone 2020-06 Yes [id number] 1{spray Use 1 Univers propionate 1-29 } [place] in ity o f 50 00:00: each [place] mcg/actuati 00 nostril Medic al on nasal daily. Branch spray guaiFENesin 2020-06 Yes [id number] 400mg Take 1 Univers 400 mg 1-29 tablet by ity of tablet 00:00: mouth [place] 00 every 4 Medical (four) Branch hours as needed for Cough. benzonatate 2020-06 Yes [id number] 200mg Take 2 Univers 100 mg 1-29 capsules ity of capsule 00:00: by mouth 2 [place] 00 (two) Medical times Branch daily as needed for Cough. bromphenira 2020-06 Yes [id number] 5mL Take 5 mL Univers mine-pseudo 1-29 by mouth 4 it y of ephedrine-D 00:00: (four) [place] M (BROMFED 00 times Medical DM) 2-30-10 daily as Bran ch mg/5 mL needed for syrup Congestion /Allergies . azelastine 2020-06 Yes [id number] 1{spray Use 1 Univers 137 mcg 1-29 } [place] in ity of (0.1 %) 00:00: each [place] nasal spray 00 nostril 2 Med ical (two) Branch times daily. Use in each nostril as directed fluticasone 2020-06 Yes [id number] 1{spray Use 1 Univers propionate 1-29 } [place] in ity o f 50 00:00: each [place] mcg/actuati 00 nostril Medic al on nasal daily. Branch spray guaiFENesin 2020-06 Yes [id number] 400mg Take 1 Univers 400 mg 1-29 tablet by ity of tablet 00:00: mouth [place] 00 every 4 Medical (four) Branch hours as needed for Cough. benzonatate 2020-06 Yes [id number] 200mg Take 2 Univers 100 mg 1-29 capsules ity of capsule 00:00: by mouth 2 [place] 00 (two) Medical times Branch daily as needed for Cough. bromphenira 2020-06 Yes [id number] 5mL Take 5 mL Univers mine-pseudo 1-29 by mouth 4 it y of ephedrine-D 00:00: (four) [place] M (BROMFED 00 times Medical DM) 2-30-10 daily as Bran ch mg/5 mL needed for syrup Congestion /Allergies . azelastine 2020-06 Yes [id number] 1{spray Use 1 Univers 137 mcg 1-29 } [place] in ity of (0.1 %) 00:00: each [place] nasal spray 00 nostril 2 Med ical (two) Branch times daily. Use in each nostril as directed fluticasone 2020-06 Yes [id number] 1{spray Use 1 Univers propionate 1-29 } [place] in ity o f 50 00:00: each [place] mcg/actuati 00 nostril Medic al on nasal daily. Branch spray guaiFENesin 2020-06 Yes [id number] 400mg Take 1 Univers 400 mg 1-29 tablet by ity of tablet 00:00: mouth [place] 00 every 4 Medical (four) Branch hours as needed for Cough. benzonatate 2020-06 Yes [id number] 200mg Take 2 Univers 100 mg 1-29 capsules ity of capsule 00:00: by mouth 2 [place] 00 (two) Medical times Branch daily as needed for Cough. bromphenira 2020-06 Yes [id number] 5mL Take 5 mL Univers mine-pseudo 1-29 by mouth 4 it y of ephedrine-D 00:00: (four) [place] M (BROMFED 00 times Medical DM) 2-30-10 daily as Bran ch mg/5 mL needed for syrup Congestion /Allergies . azelastine 2020-06 Yes [id number] 1{spray Use 1 Univers 137 mcg 1-29 } [place] in ity of (0.1 %) 00:00: each [place] nasal spray 00 nostril 2 Med ical (two) Branch times daily. Use in each nostril as directed fluticasone 2020-06 Yes [id number] 1{spray Use 1 Univers propionate 1-29 } [place] in ity o f 50 00:00: each [place] mcg/actuati 00 nostril Medic al on nasal daily. Branch spray guaiFENesin 2020-06 Yes [id number] 400mg Take 1 Univers 400 mg 1-29 tablet by ity of tablet 00:00: mouth [place] 00 every 4 Medical (four) Branch hours as needed for Cough. benzonatate 2020-06 Yes [id number] 200mg Take 2 Univers 100 mg 1-29 capsules ity of capsule 00:00: by mouth 2 [place] 00 (two) Medical times Branch daily as needed for Cough. bromphenira 2020-06 Yes [id number] 5mL Take 5 mL Univers mine-pseudo 1-29 by mouth 4 it y of ephedrine-D 00:00: (four) [place] M (BROMFED 00 times Medical DM) 2-30-10 daily as Bran ch mg/5 mL needed for syrup Congestion /Allergies . azelastine 2020-06 Yes [id number] 1{spray Use 1 Univers 137 mcg 1-29 } [place] in ity of (0.1 %) 00:00: each [place] nasal spray 00 nostril 2 Med ical (two) Branch times daily. Use in each nostril as directed fluticasone 2020-06 Yes [id number] 1{spray Use 1 Univers propionate 1-29 } [place] in ity o f 50 00:00: each [place] mcg/actuati 00 nostril Medic al on nasal daily. Branch spray guaiFENesin 2020-06 Yes [id number] 400mg Take 1 Univers 400 mg 1-29 tablet by ity of tablet 00:00: mouth [place] 00 every 4 Medical (four) Branch hours as needed for Cough. benzonatate 2020-06 Yes [id number] 200mg Take 2 Univers 100 mg 1-29 capsules ity of capsule 00:00: by mouth 2 [place] 00 (two) Medical times Branch daily as needed for Cough. bromphenira 2020-06 Yes [id number] 5mL Take 5 mL Univers mine-pseudo 1-29 by mouth 4 it y of ephedrine-D 00:00: (four) [place] M (BROMFED 00 times Medical DM) 2-30-10 daily as Bran ch mg/5 mL needed for syrup Congestion /Allergies . azelastine 2020-06 Yes [id number] 1{spray Use 1 Univers 137 mcg 1-29 } [place] in ity of (0.1 %) 00:00: each [place] nasal spray 00 nostril 2 Med ical (two) Branch times daily. Use in each nostril as directed fluticasone 2020-06 Yes [id number] 1{spray Use 1 Univers propionate 1-29 } [place] in ity o f 50 00:00: each [place] mcg/actuati 00 nostril Medic al on nasal daily. Branch spray guaiFENesin 2020-06 Yes [id number] 400mg Take 1 Univers 400 mg 1-29 tablet by ity of tablet 00:00: mouth [place] 00 every 4 Medical (four) Branch hours as needed for Cough. benzonatate 2020-06 Yes [id number] 200mg Take 2 [facility] 100 mg 1-29 capsules [place] of capsule 00:00: [place] 2 [place] (two) Medical times Branch daily as needed for Cough. bromphenira 2020-06 Yes [id number] 5mL Take 5 mL Univers mine-pseudo 1-29 by mouth 4 it y of ephedrine-D 00:00: (four[place] (BROMFED 00 times Medical DM) 2-30-10 daily as Bran ch mg/5 mL needed for syrup Congestion /Allergies . azelastine 2020-06 Yes [id number] 1{spray Use 1 Univers 137 mcg 1-29 } [place] in ity of (0.1 %) 00:00: each [place] nasal spray 00 nostril 2 Med ical (two) Branch times daily. Use in each nostril as directed fluticasone 2020-06 Yes [id number] 1{spray Use 1 [facility] propionate 1-29 } [place] in ity o f 50 00:00: each [place] mcg/actuati 00 nostril Medic al on nasal daily. Branch spray guaiFENesin 2020-06 Yes [id number] 400mg Take 1 [facility] 400 mg 1-29 tablet by ity of tablet 00:00: mouth [place] 00 every 4 Medical (four) Branch hours as needed for Cough. benzonatate 2020-06 Yes [id number] 200mg Take 2 [facility] 100 mg 1-29 capsules [place] of capsule 00:00: [place] mouth 2 [place] 00 (two) Medical times Branch daily as needed for Cough. bromphenira 2020-06 Yes [id number] 5mL Take 5 mL [facility] mine-pseudo 1-29 by mouth 4 it y of ephedrine-D 00:00: (four[place] (BROMFED 00 times Medical DM) 2-30-10 daily as Bran ch mg/5 mL needed for syrup Congestion /Allergies . azelastine 2020-06 Yes [id number] 1{spray Use 1 [facility] 137 mcg 1-29 } [place] in ity of (0.1 %) 00:00: each [place] nasal spray 00 nostril 2 Med ical (two) Branch times daily. Use in each nostril as directed fluticasone 2020-06 Yes [id number] 1{spray Use 1 [facility] propionate 1-29 } [place] in ity o f 50 00:00: each [place] mcg/actuati 00 nostril Medic al on nasal daily. Branch spray guaiFENesin 2020-06 Yes [id number] 400mg Take 1 [facility] 400 mg 1-29 tablet by ity of tablet 00:00: mouth [place] 00 every 4 Medical (four) Branch hours as needed for Cough. benzonatate 2020-06 Yes [id number] 200mg Take 2 [facility] 100 mg 1-29 capsules [place]y of capsule 00:00: [place] mouth 2 [place] 00 (two) Medical times Branch daily as needed for Cough. bromphenira 2020-06 Yes [id number] 5mL Take 5 mL [facility] mine-pseudo 1-29 by mouth 4 it y of ephedrine-D 00:00: (four[place] (BROMFED 00 times Medical DM) 2-30-10 daily as Bran ch mg/5 mL needed for syrup Congestion /Allergies . azelastine 2020-06 Yes [id number] 1{spray Use 1 [facility] 137 mcg 1-29 } [place] in ity of (0.1 %) 00:00: each [place] nasal spray 00 nostril 2 Med ical (two) Branch times daily. Use in each nostril as directed fluticasone 2020-06 Yes [id number] 1{spray Use 1 [facility] propionate 1-29 } [place] in ity o f 50 00:00: each [place] mcg/actuati 00 nostril Medic al on nasal daily. Branch spray guaiFENesin 2020-06 Yes [id number] 400mg Take 1 [facility] 400 mg 1-29 tablet by ity of tablet 00:00: mouth [place] 00 every 4 Medical (four) Branch hours as needed for Cough. benzonatate 2020-06 Yes [id number] 200mg Take 2 [facility] 100 mg 1-29 capsules ity of capsule 00:00: by mouth 2 [place] 00 (two) Medical times Branch daily as needed for Cough. bromphenira 2020-06 Yes [id number] 5mL Take 5 mL [facility] mine-pseudo 1-29 by mouth 4 it y of ephedrine-D 00:00: (four[place] (BROMFED 00 times Medical DM) 2-30-10 daily as Bran ch mg/5 mL needed for syrup Congestion /Allergies . azelastine 2020-06 Yes [id number] 1{spray Use 1 [facility] 137 mcg 1-29 } [place] in ity of (0.1 %) 00:00: each [place] nasal spray 00 nostril 2 Med ical (two) Branch times daily. Use in each nostril as directed fluticasone 2020-06 Yes [id number] 1{spray Use 1 [facility] propionate 1-29 } [place] in ity o f 50 00:00: each [place] mcg/actuati 00 nostril Medic al on nasal daily. Branch spray guaiFENesin 2020-06 Yes [id number] 400mg Take 1 [facility] 400 mg 1-29 tablet by ity of tablet 00:00: mouth [place] 00 every 4 Medical (four) Branch hours as needed for Cough. benzonatate 2020-06 Yes [id number] 200mg Take 2 [facility] 100 mg 1-29 capsules ity of capsule 00:00: [place] (two) Medical times Branch daily as needed for Cough. fluticasone 2020-06 Yes 1{spray 1 [place] by [facility] (FLONASE) 07-07 } Nas[facility] [employer] 50 MCG/ACT 00:00: route. of nasal spray 00 Medicin e Pseudoeph-B 2020-06 Yes 5mL Take 5 mL B aylor romphen-DM 1-29 by mouth. Jr e[place]ighton 00:00: of MG/5ML SYRP 00 Medicin e fluticasone 2020-06 Yes 1{spray 1 [place] by [facility] (FLONASE) 07-07 } Nasal [employer] 50 MCG/ACT 00:00: route. of nasal spray 00 Medicin e Pseudoeph-B 2020-06 Yes 5mL Take 5 mL B aylor romphen-DM 1-29 by mouth. Jr [place]on 00:00: of MG/5ML SYRP 00 Medicin e fluticasone 2020-06 Yes 1{spray 1 [place] by [facility] (FLONASE) 07-07 } [facility] [employer] 50 MCG/ACT 00:00: route. of nasal spray 00 Medicin e Pseudoeph-B 2020-06 Yes 5mL Take 5 mL B aylor romphen-DM 1-29 by mouth. Jr [place] 00:00: of MG/5ML SYRP 00 Medicin e [...] Time Observation Value Comments Source Systolic blood 2022-07-04 136 mm[Hg] University of pressure 17:03:00 [facility] Diastolic blood 2022-07-04 80 mm[Hg] University o f pressure 17:03:00 [facility] Heart rate 2022-07-04 66 /min University of 17:00:00 [facility] Body temperature 2022-07-04 36.94 Lynne University of 17:00:00 [facility] Respiratory rate 2022-07-04 16 /min University of 17:00:00 [facility] Body height 2022-07-04 174 cm University of 17:00:00 [facility] Body weight 2022-07-04 88.451 kg University of 17:00:00 [facility] BMI 2022-07-04 29.22 kg/m2 University of 17:00:00 [facility] Oxygen saturation 2022-07-04 100 /min [facility] Arterial blood 17:00:00 [facility] jono by Pulse oximetry Branch Systolic blood 2022-05-07 170 mm[Hg] University of pressure 16:32:00 [facility] Diastolic blood 2022-05-07 104 mm[Hg] University o f pressure 16:32:00 [facility] Heart rate 2022-05-07 87 /min University of 16:29:00 [facility] Body temperature 2022-05-07 37.11 Lynne University of 16:29:00 [facility] Respiratory rate 2022-05-07 17 /min University of 16:29:00 [facility] Body height 2022-05-07 174 cm University of 16:29:00 [facility] Body weight 2022-05-07 90.81 kg University of 16:29:00 [facility] BMI 2022-05-07 30.00 kg/m2 University of 16:29:00 [facility] Oxygen saturation 2022-05-07 100 /min University of in Arterial blood 16:29:00 [place] Medi jono by Pulse oximetry Branch Systolic blood 2022-03-21 150 mm[Hg] [facility] Colleg e pressure 17:16:00 of Medicine Diastolic blood 2022-03-21 94 mm[Hg] [facility] ge pressure 17:16:00 of Medicine Heart rate 2022-03-21 82 /min [facility] 17:16:00 of Medicine Body temperature 2022-03-21 36.22 Lynne [facility] Jr ege 17:16:00 of Medicine Respiratory rate 2022-03-21 16 /min [facility] Jr ege 17:16:00 of Medicine Body height 2022-03-21 172.7 cm [facility] 17:16:00 of Medicine Body weight 2022-03-21 92.443 kg [facility] 17:16:00 of Medicine BMI 2022-03-21 30.99 kg/m2 [facility] 17:16:00 of Medicine Oxygen saturation 2022-03-21 100 /min [facility] Col lege in Arterial blood 17:16:00 of Medicin e by Pulse oximetry Systolic blood 2022-02-05 142 mm[Hg] [facility] e pressure 18:30:00 of Medicine Diastolic blood 2022-02-05 80 mm[Hg] [facility] Col[facility] ge pressure 18:30:00 of Medicine Heart rate 2022-02-05 96 /min [facility] 18:30:00 of Medicine Body temperature 2022-02-05 36.67 Lynne [facility] Jr ege 18:30:00 of Medicine Respiratory rate 2022-02-05 16 /min [facility] Jr ege 18:30:00 of Medicine Body height 2022-02-05 175.3 cm [facility] 18:30:00 of Medicine Body weight 2022-02-05 92.625 kg [facility] 18:30:00 of Medicine BMI 2022-02-05 30.16 kg/m2 [facility] 18:30:00 of Medicine Oxygen saturation 2022-02-05 97 /min [facility] Col lege in Arterial blood 18:30:00 of Medicin e by Pulse oximetry Systolic blood 2022-01-02 149 mm[Hg] [facility] e pressure 18:49:00 of Medicine Diastolic blood 2022-01-02 79 mm[Hg] [facility] Colle ge pressure 18:49:00 of Medicine Heart rate 2022-01-02 87 /min [facility] 18:49:00 of Medicine Body temperature 2022-01-02 36.28 Lynne [facility] Jr ege 18:49:00 of Medicine Respiratory rate 2022-01-02 16 /min [facility] Jr ege 18:49:00 of Medicine Body height 2022-01-02 172.7 cm [facility] 18:49:00 of Medicine Body weight 2022-01-02 91.627 kg [facility] 18:49:00 of Medicine BMI 2022-01-02 30.71 kg/m2 [facility] 18:49:00 of Medicine Oxygen saturation 2022-01-02 99 /min [facility] Col [facility]ge in Arterial blood 18:49:00 of Medicin e by Pulse oximetry Systolic blood 2021-11-06 144 mm[Hg] University of pressure 17:00:00 [facility] Diastolic blood 2021-11-06 90 mm[Hg] University o f pressure 17:00:00 [facility] Heart rate 2021-11-06 72 /min University of 17:00:00 [facility] Respiratory rate 2021-11-06 16 /min University of 17:00:00 [facility] Oxygen saturation 2021-11-06 98 /min [facility] Arterial blood 17:00:00 [facility] jono by Pulse oximetry Branch Body temperature 2021-11-06 36 Lynne University of 14:24:00 [facility] Body height 2021-11-06 172.7 cm University of 14:24:00 [facility] Body weight 2021-11-06 88.451 kg University of 14:24:00 [facility] BMI 2021-11-06 29.65 kg/m2 University of 14:24:00 [facility] Systolic blood 2021-10-16 148 mm[Hg] University of pressure 20:21:00 [facility] Diastolic blood 2021-10-16 92 mm[Hg] University o f pressure 20:21:00 [facility] Heart rate 2021-10-16 83 /min University of 20:18:00 [facility] Body temperature 2021-10-16 37.39 Lynne University of 20:18:00 [facility] Respiratory rate 2021-10-16 18 /min University of 20:18:00 [facility] Body height 2021-10-16 175.3 cm University of 20:18:00 [facility] Body weight 2021-10-16 89.982 kg University of 20:18:00 [facility] BMI 2021-10-16 29.29 kg/m2 University of 20:18:00 [facility] Oxygen saturation 2021-10-16 100 /min University of in Arterial blood 20:18:00 [place] Medi jono by Pulse oximetry Branch Systolic blood 2021-06-03 125 mm[Hg] University of pressure 20:08:00 [facility] Diastolic blood 2021-06-03 78 mm[Hg] University o f pressure 20:08:00 [facility] Heart rate 2021-06-03 79 /min University of 20:08:00 [facility] Body temperature 2021-06-03 36.78 Lynne University of 20:08:00 [facility] Respiratory rate 2021-06-03 18 /min University of 20:08:00 [facility] Body height 2021-06-03 172.7 cm University of 20:08:00 [facility] Body weight 2021-06-03 92.987 kg University of 20:08:00 [facility] BMI 2021-06-03 31.17 kg/m2 University of 20:08:00 [facility] Oxygen saturation 2021-06-03 98 /min [place] in Arterial blood 20:08:00 [facility] by Pulse oximetry Branch Systolic blood 2021-05-08 169 mm[Hg] University of pressure 01:03:00 [facility] Diastolic blood 2021-05-08 96 mm[Hg] University o f pressure 01:03:00 [facility] Heart rate 2021-05-08 71 /min University of 01:02:00 [facility] Respiratory rate 2021-05-08 20 /min University of 01:02:00 [facility] Body height 2021-05-08 172.7 cm University of 01:02:00 [facility] Body weight 2021-05-08 97.659 kg University of 01:02:00 [facility] BMI 2021-05-08 32.74 kg/m2 University of 01:02:00 [facility] Oxygen saturation 2021-05-08 99 /min University of in Arterial blood 01:02:00 [facility] by Pulse oximetry Branch Systolic blood 2021-12-18 147 mm[Hg] [facility] pressure 11:20:00 [facility] Diastolic blood 2021-12-18 69 mm[Hg] [facility] pressure 11:20:00 [facility] Heart rate 2021-12-18 72 /min [facility] 11:20:00 [facility] Body temperature 2021-12-[address] [facility] Respiratory rate 2021-12-18 18 /min [facility] 11:20:00 [facility] Oxygen saturation 2021-12-18 97 /min [facility] in Arterial blood 11:20:00 Medical Ce nter by Pulse oximetry Body height 2021-12-11 175 cm [facility] 05:01:00 [facility] Body weight 2021-12-11 88.451 kg patient stated [facility] 05:01:00 weight [facility] BMI 2021-12-11 28.88 kg/m2 [facility] 05:01:00 [facility] Procedures Procedure Date / Time Performing Clinician Source Performed POCT SARS-COV-2 ANTIGEN 2022-07-04 17:21:[address] [facility] (BINAX NOW) [facility] POCT MOLECULAR FLU 2022-07-04 17:10:00 Unknown, Attending [facility] POCT MOLECULAR FLU 2022-05-07 17:11:00 Unknown, Attending [facility] XR CHEST 2 VW 2022-05-07 17:10:00 Mayur [facility] COVID-19 (MOLECULAR 2022-05-07 17:08:00 [facility] NUCLEIC ACID AMPLIFICATION) LAB ONLY COVID 2022-05-07 17:08:00 Mayur Bertrand [facility] INTERPRETATION [facility] POCT MOLECULAR STREP 2022-05-07 17:07:00 Unknown, Attending [facility] AMB REF TO SPINE CENTER 2022-02-05 13:57:11 [facility] Medicine AMB REF TO PT EXTERNAL 2022-01-02 14:20:01 [facility] CBC W/PLT COUNT & AUTO 2021-12-18 04:25:00 Bear Vyas [facility] DIFFERENTIAL [facility] BASIC METABOLIC PANEL 2021-12-18 04:25:00 Bear Vyas [facility] CBC W/PLT COUNT & AUTO 2021-12-18 04:25:00 Bear Vyas [facility] DIFFERENTIAL [facility] FL FLUORO NON-SPECIFIC UP 2021-12-17 11:43:00 Victor M, Dion B [facility] TO 1 HOUR Center LAMINECTOMY, SPINE, 2021-12-17 10:33:00 Dion Dow [facility] LUMBAR, WITH DISCECTOMY Center PROCEDURE W/ C-ARM 2021-12-17 10:33:00 Dion Dow [facility] CBC W/PLT COUNT & AUTO 2021-12-17 04:26:[address] [facility] DIFFERENTIAL [place] BASIC METABOLIC PANEL 2021-12-17 04:26:00 Bear Vyas [facility] CBC W/PLT COUNT & AUTO 2021-12-17 04:26:00 Hanson [facility] DIFFERENTIAL [place] SARS-COV2/RT-PCR ([facility] & 2021-12-16 14:50:00 [facility] Center SCREEN, URINE 2021-12-16 11:49:00 Mario Rice [facility] ABORH, MANUAL 2021-12-16 04:51:00 Rebeca Malave [facility] PT/APTT 2021-12-16 04:02:00 Valentin [facility] CBC W/PLT COUNT & AUTO 2021-12-16 04:02:[address] [facility] DIFFERENTIAL [place] BASIC METABOLIC PANEL 2021-12-16 04:02:00 Bear Vyas [facility] TYPE AND SCREEN, 2021-12-16 04:02:00 [facility] Center CBC W/PLT COUNT & AUTO 2021-12-16 04:02:00 Hanson [facility] DIFFERENTIAL [place] ECG 12-LEAD 2021-12-15 15:19:20 Valentin [facility] XR CHEST 1 VIEW PORTABLE 2021-12-15 14:06:00 [facility] / BEDSIDE Center BASIC METABOLIC PANEL 2021-12-12 04:08:00 Farzaneh Cartwright [facility] HEPATIC FUNCTION PANEL 2021-12-12 04:08:00 Farzaneh Cartwright [facility] CBC W/PLT COUNT & AUTO 2021-12-12 04:08:00 Farzaneh Cartwright [facility] DIFFERENTIAL Center CBC W/PLT COUNT & AUTO 2021-12-12 04:08:00 Farzaneh Cartwright [facility] DIFFERENTIAL Center SARS-COV2/RT-PCR ([facility] & 2021-12-11 13:54:00 Bear Vyas [facility] REF LABS) [facility] MR LUMBAR SPINE WITHOUT 2021-12-11 08:45:00 Lakhwinder [place] [facility]BD[facility] PELVIS W 2021-11-06 15:49:20 Aye Mejia [facility] CONTRAST Medical Branch POCT TEST 2021-11-06 15:17:00 Aye Mejia [facility] LIPASE 2021-11-06 15:11:00 Roberto [facility] COMP. METABOLIC PANEL 2021-11-06 15:11:00 Aye Mejia [facility] ([id number]) Medical [place] CBC WITH DIFF 2021-11-06 15:11:00 [facility] URINALYSIS 2021-11-06 14:37:00 [facility] NOTICE OF PRIVACY 2021-11-06 14:26:59 Doctor Unaandre, [facility] PRACTICES [facility] CONSENT/REFUSAL FOR 2021-11-06 14:19:53 Doctor Unasstata, [facility] DIAGNOSIS AND TREATMENT [facility] [place] POCT MOLECULAR STREP 2021-10-16 20:24:00 Trisatn Trejo [facility] Medical [place] ASSIGNMENT OF BENEFITS 2021-10-16 20:13:33 Doctor Unassigned, [facility] Name Medical Branch [id number] 2019-10-06 00:00:00 [facility] [id number] 2019-10-06 00:00:00 [facility] Plan of Care Planned Activity Planned Date Details Comments Source Future Scheduled 2022-06-[address] [facility] Test 00:00:00 (12+) [code = DEPRESSION Med [facility] SCREENING (12+)] Future Scheduled 2022-03-22 COVID-19 Vaccine (3 - Ba [facility] of Test 10:38:11 Booster for Pfizer Medicine series) [code = COVID-19 Vaccine (3 - Booster for Pfizer series)] Future Scheduled 2022-03-22 FLU VACCINE > 6 MONTHS B [facility] of Test 10:38:11 [code = FLU VACCINE > 6 Medi cine MONTHS] Future Scheduled 2022-03-22 BMI FOLLOW UP PLAN [code [facility] of Test 10:38:11 = BMI FOLLOW UP PLAN] Medici ne Future Scheduled 2022-03-22 TETANUS SHOT (ADULT) [facility] of Test 10:38:11 [code = TETANUS SHOT Medicin e (ADULT)] Future Scheduled 2022-03-22 Hepatitis C screening [facility] of Test 10:38:11 (procedure) [code = Medicine [id number]] Future Scheduled 2022-03-22 Human immunodeficiency B [facility] of Test 10:38:11 virus screening Medicine (procedure) [code = 580189494] Future Scheduled 2022-03-22 Screening for malignant [facility] of Test 10:38:11 neoplasm of cervix Medicine (procedure) [code = 698929920] Future Scheduled 2022-02-07 INFLUENZA VACCINE (#1) [facility] 00:[facility]00 [code = INFLUENZA VACCINE Me dical Center (#1)] Future Scheduled 2022-02-07 INFLUENZA VACCINE (#1) [facility] 00:00:00 [code = INFLUENZA VACCINE Me dical Center (#1)] Future Scheduled 2022-02-06 Hepatitis C screening Ba [facility] of Test 08:40:13 (procedure) [code = Medicine [id number]] Future Scheduled 2022-02-06 Human immunodeficiency B [facility] of Test 08:40:13 virus screening Medicine (procedure) [code = 729900617] Future Scheduled 2022-02-06 Screening for malignant [facility] of Test 08:40:13 neoplasm of cervix Medicine (procedure) [code = 603394540] Future Scheduled 2022-02-06 COVID-19 Vaccine (3 - Ba [facility] of Test 08:40:13 Booster for Pfizer Medicine series) [code = COVID-19 Vaccine (3 - Booster for Pfizer series)] Future Scheduled 2022-02-06 FLU VACCINE > 6 MONTHS B [facility] of Test 08:40:13 [code = FLU VACCINE > 6 Medi cine MONTHS] Future Scheduled 2022-02-06 BMI FOLLOW UP PLAN [code [facility] of Test 08:40:13 = BMI FOLLOW UP PLAN] Medici ne Future Scheduled 2022-02-06 TETANUS SHOT (ADULT) [facility] of Test 08:40:13 [code = TETANUS SHOT Medicin e (ADULT)] Future Scheduled 2022-01-02 TETANUS SHOT (ADULT) [facility] of Test 15:02:18 [code = TETANUS SHOT Medicin e (ADULT)] Future Scheduled 2022-01-02 Hepatitis C screening [facility] Test 15:02:18 (procedure) [code = Medicine [id number]] Future Scheduled 2022-01-02 Human immunodeficiency B [facility] Test 15:02:18 virus screening Medicine (procedure) [code = 895172507] Future Scheduled 2022-01-02 Screening for malignant [facility] Test 15:02:18 neoplasm of cervix Medicine (procedure) [code = 311299450] Future Scheduled 2022-01-02 COVID-19 Vaccine (3 - Ba [facility] Test 15:02:18 Booster for Pfizer Medicine series) [code = COVID-19 Vaccine (3 - Booster for Pfizer series)] Future Scheduled 2022-01-02 FLU VACCINE > 6 MONTHS B [facility] of Test 15:02:18 [code = FLU VACCINE > 6 Medi cine MONTHS] Future Scheduled 2022-01-02 BMI FOLLOW UP PLAN [code [facility] of Test 15:02:18 = BMI FOLLOW UP PLAN] Medici ne Future Scheduled 2005 Screening for malignant [facility] Test 00:00:00 neoplasm of cervix Medical C enter (procedure) [code = 297517487] Future Scheduled 2005 Screening for malignant [facility] Test 00:00:00 neoplasm of cervix Medical C enter (procedure) [code = 561943455] Future Scheduled 2003-11-06 DTAP/TDAP/TD VACCINES ([address] [facility] Test 00:00:00 - Tdap) [code = Medical Cent er DTAP/TDAP/TD VACCINES (1 - Tdap)] Future Scheduled 2003-11-06 DTAP/TDAP/TD VACCINES ([address] [facility] Test 00:00:00 - Tdap) [code = Medical Cent er DTAP/TDAP/TD VACCINES (1 - Tdap)] Future Scheduled 2002 HEPATITIS C [facility] Test 00:00:00 [code = HEPATITIS C Medical Center SCREENING] Future Scheduled 2002 HEPATITIS C [facility] Test 00:00:00 [code = HEPATITIS C Medical Center SCREENING] Future Scheduled [address] [facility] Test 00:00:00 Counseling and Screening Med ical Center (12+) [code = Tobacco Cessation Counseling and Screening (12+)] Future Scheduled [address] [facility] Test 00:00:00 Counseling and Screening Med ical Center (12+) [code = Tobacco Cessation Counseling and Screening (12+)] Future Scheduled 1985-05-08 COVID-19 VACCINE (#1) [facility] Test 00:00:00 [code = COVID-19 VACCINE Med ical Center (#1)] Future Scheduled 1985-05-08 COVID-19 VACCINE (#1) [facility] Test 00:00:00 [code = COVID-19 VACCINE Med ical Center (#1)] Encounters Start End Encounter Admission Attending Care Care Encounter Source Date/Time Date/Time Type Type Clinicians Facility Department ID 2019-11-16 Inpatient [facility] [id number] [facility] 15:52:00 62 [facility] [place] 2019-10-16 Inpatient [facility], [facility].01 [id number] [facility] 01:11:00 Sanna 13 [facility] [place] 2019-10-06 Inpatient [facility], [facility] LD [id number] [facility] 00:27:00 Sanna 30 [facility] [place] 2019-09-15 Inpatient [place], [facility] ROMAN [id number] [facility] 13:41:00 Sanna 76 [facility] [place] 2019-09-08 [facility], [facility] [id number] [facility] 14:47:00 Sanna 45 [facility] [place] 2019-08-14 Inpatient [facility], [facility] OBANTE [id number] [facility] 17:43:00 Sanna 52 [facility] 2019-07-29 Inpatient LILI Hoffman, HCAWH OBANTE [id number] [facility] 10:30:00 Sanna 81 [facility] 2019-06-30 Inpatient Dalton, HCAWH ROMAN [id number] [facility] 21:41:00 Sanna 94 [facility] 2022-07-04 2022-07-04 Outpatient Abhishek DOW III [facility] [id number] Univers 10:40:00 11:42:35 BENNIE makennahenrietta [facility] 2022-07-04 2022-07-04 Urgent Bennie Dow [facility] 1.2.840.114 [id number] Univers 10:40:00 11:00:00 Care Unknown, Attending HEALTH 350.1.13.10 ity of [place] 4.2.7.2.686 Yogesh as ANN?BLEA [id number] [facility] [address] MEDICAL OFFICE BUILDING 2022-05-08 2022-05-08 ALYSA Hilliard 1.2.840.114 [id number] Univers 00:00:00 00:00:00 (Out) Fernanda CARSON 350.1.13.10 it y of [facility] 4.2.7.2.686 Yogesh as [id number] [address] 2022-05-07 2022-05-07 [facility] 1.2.501.116 [id number] Univers 11:02:14 23:59:00 Encounter [facility] 350.1.13.10 ity of [place] 4.2.7.2.686 Yogesh as ANN?BLEA [id number] [facility] [address] MEDICAL OFFICE BUILDING 2022-05-07 2022-05-07 [facility] [id number] Univers 10:20:00 11:40:39 GRAHAM lazaro [facility] 2022-05-07 2022-05-07 Urgent Graham Merchant [facility] 1.2.840.11 [id number] Univers 10:20:00 11:40:39 Care Unknown, Attending HEALTH 350.1.13.10 ity of [place] 4.2.7.2.686 Yogesh as ANN?BLEA [id number] [address] OFFICE [facility] 2022-03-21 2022-03-21 Office Dion Dow [facility] 1.2.840.114 [id number] [facility] 12:00:00 12:45:41 Visit B AMBULATOR 350.1.13.21 College Y 0.2.7.2.686 of [id number] Medi cecelia 300 e 2022-02-05 2022-02-05 Office DION DOW [facility] 1.2.840.114 [id number] [facility] 13:09:11 14:03:47 Visit AMBULATOR 350.1.13.21 College Y 0.2.7.2.686 of [id number] Medi cecelia 300 e 2022-01-02 2022-01-02 Office JOSELYN [facility] 1.2.840.114 [id number] [facility] 13:42:17 14:32:53 Visit DEX AMBULATOR 350.1.13.21 College Y 0.2.7.2.686 of [id number] Medi cecelia 300 e 2021-12-11 2021-12-18 [facility] [id number] [facility] 03:34:00 15:16:00 [facility] 2021-12-11 2021-12-18 [facility] [id number] [facility] 03:34:00 15:16:00 [facility] 2021-12-11 2021-12-18 [facility] [id number] [facility] 03:34:00 15:16:00 [facility] 2021-12-17 2021-12-17 Surgery Ej Dowrus [facility] [id number] 10:30:00 13:23:00 [facility] 2021-12-17 2021-12-17 [facility] [id number] 10:30:00 13:23:00 [facility] 2021-12-17 2021-12-17 Anesthesia Camila Randle [facility] [id number] [facility] 10:48:00 13:05:00 Event [facility] 2021-12-17 2021-12-17 Anesthesia Camila Randle [facility] [id number] [facility] 10:48:00 13:05:00 Event [facility] 2021-12-15 2021-12-15 Outpatient [facility] [id number] [facility] 00:00:00 23:59:00 [facility] e [facility] Medicin e 2021-11-06 2021-11-06 Emergency X ROBERTO [facility] ERT [id number] Univers 09:30:00 13:05:00 AYE [facility] 2021-11-06 2021-11-06 [facility] 1.2.082.882 [id number] Univers 09:30:00 13:05:00 Aye [place] 350.1.13.10 i ty of [place] 4.2.7.2.686 [place] [facility] [id number] [facility] [address] 2021-11-06 2021-11-06 Orders Doctor ALYSA 1.2.840.114 [id number] Univers 00:00:00 00:00:00 Only Unassigned, ALLI 350.1.13.10 ity of [place] [facility] 4.2.7.2.686 Yogesh as [id number] [facility] [address] 2021-10-16 2021-10-16 [facility] 1.2.840.114 [id number] Univers 15:20:00 15:40:00 Care [facility] 350.1.13.10 it y of [place] 4.2.7.2.686 Yogesh as ANN?BLEA [id number] [address] MEDICAL OFFICE BUILDING 2021-10-16 2021-10-16 Outpatient R CLAY [facility] [id number] Univers 15:20:00 15:20:00 [facility] 2021-10-16 2021-10-16 Orders Doctor ALYSA 1.2.840.114 [id number] Univers 00:00:00 00:00:00 Only Unassigned, ALLI 350.1.13.10 ity of [place] [facility] 4.2.7.2.686 Yogesh as [id number] [address] 2021-06-03 2021-06-03 [facility] [id number] Univers 13:20:00 15:39:32 FELIPA henrietta [facility] 2021-06-03 2021-06-03 [facility] 1.2.544.016 [id number] Univers 13:20:00 13:40:00 [facility] 350.1.13.10 it y of [place] 4.2.7.2.686 Yogesh as ANN?BLEA [id number] [address] OFFICE [facility] 2021-05-07 2021-05-07 Outpatient R MAXIMILIAN [facility] [id number] Univers 19:00:00 19:13:51 [facility] 2021-05-07 2021-05-07 Urgent [facility] 1.2.840.114 [id number] Univers 18:53:36 19:13:51 Care Leann [facility] 350.1.13.10 it y of [place] 4.2.7.2.686 Yogesh as ANN?BLEA [id number] [address] OFFICE [facility] 2020-02-04 2020-02-04 Letter ALYSA Cifuentes 1.2.840.114 [id number] 00:00:00 00:00:00 (Out) Yesi CARSON 350.1.13.10 HOSPITAL 4.2.7.2.686 [id number] [facility] 2020-02-04 2020-02-04 Letter ALYSA Cifuentes 1.2.840.114 [id number] Univers 00:00:00 00:00:00 (Out) Ysei CARSON 350.1.13.10 it y of [facility] 4.2.7.2.686 Yogesh as [id number] [address] 2020-02-01 2020-02-01 Laboratory Lab, [facility] 1.2.840.114 [id number] 15:55:19 16:15:19 Only Fam Pob I Health 350.1.13.10 [place] 4.2.7.2.686 Professio [id number] nal [facility] Office Building One 2020-02-01 2020-02-01 Laboratory Lab, [facility] Fam Pob I [facility] 1.2. 840.114 [id number] Univers 15:55:19 16:15:19 Only Venus [facility] 350.1.13.10 ity of [place] 4.2.7.2.686 Yogesh as Professio [id number] Me dical [address] Office [address] 2020-02-01 2020-02-01 Outpatient R [facility] [id number] Univers 16:00:00 16:00:00 [facility] Results Test Description Test Time Test Comments Results Result Comments Source POCT SARS-COV-2 ANTIGEN (BINAX NOW) 2022-07-04 17:22:00 Test Item Value Reference Range Interpretation Comme nts POCT SARS-COV-2 ANTIGEN (test code Not Detected Not Detected = 75985-4) On board controls acceptable with Yes C Line (test code = 3574) TONY (test code = TONY) accurate development and interpretation of all internal controls Lab Interpretation (test code = Normal 22756-4) [facility] MOLECULAR [id number] 17:21:56 Test Item Value Reference Range Interpretation Comments POCT Molecular FluA (test code = Negative Negative 36932-8) POCT Molecular FluB (test code = Negative Negative 21304-9) Lab Interpretation (test code = Normal 68235-9) [facility] MOLECULAR [id number] 17:15:24 Test Item Value Reference Range Interpretation Comments POCT Molecular Strep (test code = Negative Negative 54599-1) Lab Interpretation (test code = Normal 54346-8) [facility] MOLECULAR [id number] 17:14:43 Test Item Value Reference Range Interpretation Comments POCT Molecular FluB (test code = Positive Negative A 48550-5) Lab Interpretation (test code = Abnormal 25773-5) [facility] METABOLIC [id number] 05:11:01 Test Item Value Reference Range Interpretation [...] S NOT APPLICABLE FOR DIALYSIS PATIEN TS. Blanchard Grinder Operator ID - PIAYA LCBC W/PLT COUNT & AUTO [id number] 04:55:58 Test Item Value Reference Range Interpretation [...] 2801) FL, FLUORO, NON-SPECIFIC, UP TO 1 [id number] 11:44:00Reason for exam:- >Lumbar disc [facility]niation [facility] 1985 Sex: FFINAL REPORT FL, FLUORO, NON-SPECIFIC, UP TO 1 HOUR CLINICAL INDICATION: Lumbar disc herniation COMPARISON: None IMPRESSION: A single lateral view of the lumbar spine is obtained intraoperatively. The surgical screw is seen at the right L5-S1 level posteriorly. Results were communicated to Dr. Dow, who concurred with the above findings. Signed: Parrish Buchanan Verified Date /Time: 12/17/2021 11:44:43 Reading Location: [facility] Radiology Reading Room C METABOLIC [id number] 05:14:37 Test Item Value Reference Range Interpretation [...] S NOT APPLICABLE FOR DIALYSIS PATIEN TS. Blanchard Grinder Operator ID - BENJAMIN WCBC W/PLT COUNT & AUTO [id number] 04:48:53 Test Item Value Reference Range Interpretation [...] SARS-Co V-2 (test code = target nucleic 44719-6) acids are not detected in thi s [...] om SARS-CoV-2 in a nasopharyngeal swab specimen [facility] from individual s suspected of COVID-19 by [...] revoked sooner. Fact Sheet for Healthcare Providers: https://www.Fastgen/Documents/Xp ert%20Xpress%20SAR S%20CoV-2/Fact%20S heets/302-3802%20S ARS-COV-2%20HEALTH CARE%20PROVIDERS%2 0FACT%20SHEET.pdf Fact Sheet for Healthcare Patients: https://www.Fastgen/Documents/Xp ert%20Xpress%20SAR S%20CoV-2/Fact%20S heets/302-3801%20S ARS-COV-2%20PATIEN T%20FACT%20SHEET.p df Lab Interpretation Normal (test code = 02794-3) [facility]2021-12-17 00:36:35 Test Item Value Reference Interpretation Comments Range SARS-COV2/RT-PCR Negative Negative The SARS-Co V-2 (test code = target nucleic 82997-3) acids are not detected in thi s [...] om SARS-CoV-2 in a nasopharyngeal swab specimen [facility] [place] from individual s suspected of COVID-19 [...] revoked sooner. Fact Sheet for Healthcare Providers: https://www.Fastgen/Documents/Xp ert%20Xpress%20SAR S%20CoV-2/Fact%20S heets/302-3802%20S ARS-COV-2%20HEALTH CARE%20PROVIDERS%2 0FACT%20SHEET.pdf Fact Sheet for Healthcare Patients: https://www.Fastgen/Documents/Xp ert%20Xpress%20SAR S%20CoV-2/Fact%20S heets/302-3801%20S ARS-COV-2%20PATIEN T%20FACT%20SHEET.p df Lab Interpretation Normal (test code = 85236-6) [facility])2021-12-17 00:36:35 Test Item Value Reference Range Interpretation Comments SARS-COV2/RT-PCR Negative Negative The SARS-Co V-2 target (test code = nucleic acids a re not 1591313) detected in thi s specimen. Negative result [...] revoked sooner. Fact Sheet for Healthcare Providers: https://www.Genia Photonics/Documents/Xpert%20Xpress%20SARS%20CoV-2/Fact%20Sheets/302-3802%86SGDN-AKP-7%2 0HEALTHCARE%20PROVIDERS%20FACT%20SHEET.pdf Fact Sheet for Healthcare Patients: https://www.Great Mobile Meetings/Documents/Xpert%20X press%20SARS%20CoV-2/Fact%20Sheets/3023801%47OPBG-QNM-6%20PATIENT%20FACT%20SHEE T.pdfPregnancy Screen, [id number] 12:02:43 Test Item Value Reference Range Interpretation Comments Preg Test, Ur (test code = 2112-1) Negative Negative Lab Interpretation (test code = Normal 59455-6) [facility], [id number] 12:02:43 Test Item Value Reference Range Interpretation Comments Preg Test, Ur (test code = 2112-1) Negative Negative Lab Interpretation (test code = Normal 39807-1) [facility] CenterPREG[facility]NCY SCREEN, [id number] 12:02:43 Test Item Value Reference Range Interpretation Comments TEST URINE (BEAKER) (test Negative Negative code = 583) BASIC METABOLIC [id number] 04:38:33 Test Item Value Reference Range Interpretation [...] S NOT APPLICABLE FOR DIALYSIS PATIEN TS. Blanchard Grinder Operator ID - SETH [id number] 04:34:08 Test Item Value Reference Range Interpretation Comments PROTIME (BEAKER) (test 14.9 seconds 11.9-14.2 H code = 759) INR (BEAKER) (test 1.19 See_Comment [Automat ed code = 370) message] The Mobango stem which generated this result transmitted reference [...] mechanical heart valves.CBC W/PLT COUNT & AUTO [id number] 04:23:27 Test Item Value Reference Range Interpretation [...] = 2801) RAD, CHEST, 1 VIEW, NON [id number] 14:14:00Reason for exam:- >baselineShould this be performed at the bedside?->Yes [facility] 1985 Sex: FFINAL REPORT INDICATION: baseline COMPARISON: None TECHNIQUE: Single frontal view of the chest. FINDINGS: Lungs and pleura: Clear lungs. No effusion.Heart and mediastinum: Normal heart size. Unremarkable mediastinal contours.Osseous structures: No acute abnormality.Other: None. IMPRESSION: No acute intrathoracic abnormality. Signed: Felicia Salasepsukumar Verified Date/Time: 12/15/2021 14:14:14 HEPATIC FUNCTION [id number] 05:23:41 Test Item Value Reference Range Interpretation [...] (test code = 27 U/L 6-55 347) Blanchard Grinder Operator ID - PIAYA LBASIC METABOLIC [id number] 05:23:40 Test Item Value Reference Range Interpretation [...] S NOT APPLICABLE FOR DIALYSIS PATIEN TS. Blanchard Grinder Operator ID - PIAYA LCBC W/PLT COUNT & AUTO [id number] 04:43:17 Test Item Value Reference Range Interpretation [...] PERCENT (BEAKER) (test code = 2801) SARS-COV2/RT-PCR ([facility])2021-12-12 02:29:42 Test Item Value Reference Range Interpretation Comments SARS-COV2/RT-PCR (test code = Negative Negative 8843024) Negative result for this test determines that [...] 564(g) of the Act.Testing was performed using Statusly SARS-CoV-2 assay.Fact Sheet for Healthcare Providers:https://www.DesignArt Networks.New Breed Games/major/RT SARS-CoV-2 HCP Fact Sheet 51- 847740.pdfFact Sheet for Healthcare Patients:https://www.Zigswitch/major/RT SARS-CoV-2 Patient Fact Sheet EN 51-695709N3.pdfMR, SPINE, LUMBAR, WITHOUT [id number] 09:13:00Unlisted Reason for Exam - Click Yes and Enter Reason Below->YesUnlisted Reason for Exam->DischerniationDoes the patient have an implanted electronic device?->No [facility] 1985 Sex: FFINAL [...] MDReport Verified Date/Time: 12/11/2021 09:13:09 Reading Location: [address] Neuro Reading Room [facility]. METABOLIC PANEL (15242)2021-11-06 16:06:35 Test Item Value Reference Range Interpretation Comments NA (test code = 138 mmol/L 135-145 8942812350) K (test code = 4.2 mmol/L 3.5-5.0 7148215380) CL (test code = 102 mmol/L 98-108 6005243592) CO2 TOTAL (test code = 26 mmol/L 23-31 4441775703) AGAP (test code = 2-16 3711264255) BUN (test code = 6 mg/dL 7-23 L 5493816888) GLUCOSE (test code = 116 mg/dL 70-110 H 0104061078) CREATININE (test code = 0.62 mg/dL 0.50-1.04 2306340902) TOTAL BILI (test code = 0.7 mg/dL 0.1-1.2 1458075130) CALCIUM (test code = 9.5 mg/dL 8.6-10.6 0909568161) T PROTEIN (test code = 7.2 g/dL 6.3-8.2 9480241331) ALBUMIN (test code = 4.4 g/dL 3.5-5.0 8520298245) ALK PHOS (test code = 67 U/L 34-122 2239350004) ALTv (test code = 15 U/L 5-35 2-6) AST(SGOT) (test code = 22 U/L 13-40 6291823995) eGFR (test code = mL/min/1.73m2 2177524940) TONY (test code = TONY) Association of [...] tests). Lab Interpretation Abnormal (test code = 83046-3) [facility] System[facility]IP[facility]2022-05-31 16:06:15 Test Item Value Reference Range Interpretation Comments LIPASE (test code = 4116933383) 41 U/L 0-220 Lab Interpretation (test code = Normal 70402-6) [facility] SystemCBC WITH [id number] 15:51:56 Test Item Value Reference Range Interpretation Comments WBC (test code = See_Comment [Automated message] 6690-2) The system Oris4 generated this result transmitted ref erence range: 4.30 - 1 1.10 10*3/?L. The re ference range was not u sed to interpret this result as normal/abnor mal. RBC (test code = See_Comment [Automated message] 789-8) The system Oris4 generated this result transmitted ref erence range: [...] RDW-SD (test code 44.0 fL 39.0-49.9 = 50227-9) RDW-CV (test code 14.1 % 12.0-15.5 = 788-0) PLT (test code = See_Comment [Automated message] 777-3) The system Oris4 generated this result transmitted ref erence range: 166 - 35 8 10*3/?L. The re ference range was not u sed to interpret this result as normal/abnor mal. MPV (test code = 10.0 fL 9.5-12.9 79476-1) NRBC/100 WBC (test See_Comment [Automat ed message] code = 7176050476) The syste NeighborMD which generated this result transmitted ref erence range: 0.0 - 10 .0 /100 WBCs. The refer ence range was not u sed to interpret this result as normal/abnor mal. NRBC x10^3 (test <0.01 See_Comment [Automated message] code = 5871804872) The syste m which generated this result transmitted ref erence range: 10*3/?L. The reference range was not used to interpr et this result as normal/abnormal . GRAN MAT (NEUT) % 72.0 % (test code = 770-8) IMM GRAN % (test 0.40 % code = 7907898218) LYMPH % (test code 21.6 % = 736-9) MONO % (test code 4.9 % = 5905-5) EOS % (test code = 0.7 % 713-8) BASO % (test code 0.4 % = 706-2) GRAN MAT 4.82 10*3/uL 1.88-7.09 x10^3(ANC) (test code = 7638175520) IMM GRAN x10^3 0.03 10*3/uL 0.00-0.06 (test code = 4212210794) LYMPH x10^3 (test 1.45 10*3/uL 1.32-3.29 code = 731-0) MONO x10^3 (test 0.33 10*3/uL 0.33-0.92 code = 742-7) EOS x10^3 (test 0.05 10*3/uL 0.03-0.39 code = 711-2) BASO x10^3 (test 0.03 10*3/uL 0.01-0.07 code = 704-7) [facility] SystemPOIN [id number] 15:17:00 Test Item Value Reference Range Interpretation Comments POCT PREG (test code = 1605) negative On board controls acceptable with present C Line (test code = 3574) POCT PREG LOT # (test code = 3575) [id number] POCT PREG TEST DATE (test 04/08/2023 code = 3576) Lab Interpretation (test code = Normal 72610-7) [facility] MOLECULAR [id number] 20:28:21 Test Item Value Reference Range Interpretation Comments POCT Molecular Strep (test code = Positive Negative A 39445-1) Lab Interpretation (test code = Abnormal 69495-3) [facility] SystemDRUGS OF ABUSE [id number] 20:44:00 Test Item Value Reference Range Interpretation [...] = PHENCU) 25 ng/m L COMPREHENSIVE METABOLIC [id number] 16:55:00 Test Item Value Reference Range Interpretation [...] units/L 46-116 N code = ALKP) URIC [id number] 16:55:00 Test Item Value Reference Range Interpretation Comments URIC ACID (test code = URIC) 6.2 mg/dL 2.6-6.0 H LACTIC DEHYDROGENASE(LDH)2019-11-16 16:55:00 Test Item Value Reference Range Interpretation Comments LACTIC DEHYDROGENASE(LDH) (test 160 units/L 81-234 N code = LDH) UA RFLX MICR CULT IF [id number] 16:41:00 Test Item Value Reference Range Interpretation [...] SEEN Indication for culture: Suprapubic PainCBC W/AUTO [id number] 16:35:00 Test Item Value Reference Range Interpretation [...] NORMAL code = PLTMR) Coronavirus 2019 nCoV [id number] 11:09:00 Test Item Value Reference Range Interpretation Comments Coronavirus 2019 nCoV Negative Negative RESUL TS CALLED TO Bedside (test code = Adesuyi ,AREAD BACK & [id number]) CONFIRMED? yes BY F.LAB.MAF1 0 02/26 1109 This result fountain s not [...] UNDER AN EMERGENCY USE AUTHORIZATION F [facility] COMPREHENSIVE METABOLIC [id number] 07:48:00 Test Item Value Reference Range Interpretation [...] 81 units/L 46-116 N code = ALKP) [id number] 07:48:00 Test Item Value Reference Range Interpretation Comments MAGNESIUM (test code = MAG) 2.7 mg/dL 1.8-2.4 H CBC W/AUTO [id number] 07:08:00 Test Item Value Reference Range Interpretation [...] NORMAL NORMAL code = PLTMR) B-TYPE NATRIURETIC [id number] 00:38:00 Test Item Value Reference Range Interpretation Comments B-TYPE NATRIURETIC PEPTIDE (test 542.13 pg/mL 0-100 H code = BNP) Comments to Manager Finance: Clean CatchSpecimen Comment: Clean Catch- CT HEAD/BRAIN W/O [id number] 00:31:00 Patient Name: FELICIA MCCANN Unit No: [id number] EXAMS: CPT CODE: [id number] CT HEAD/BRAIN W/O CONT 97115 CT HEAD WITHOUT CONTRAST DATED 10/16/2019. INDICATION: [...] Reported andsigned by: Jaiden Durham MD [facility] NAME: FELICIA MCCANN Radiology Department PHYS: CINTHIASilvana - BrentGian [address] : 1985 AGE: 33 SEX: F [place] [address] LOC: .ERS PHONE #: [phone] EXAM DATE: 10/15/2019 STATUS: REG ER FAX #: [phone] RAD NO: Page 1 Signed Report 1 Patient Name: FELICIA MCCANN Unit No: [id number] EXAMS: CPT CODE: [id number] CT HEAD/BRAIN W/O CONT 16479 (Continued) CC: Sanna Hoffman Technologist: ROB RAO, WAN, RT CTDI: 60.16 DLP: 1012.10 Trnscrbd D/ (0031) Bhavana [facility] NAME: FELICIA MCCANN Radiology Department PHYS: CINTHIASilvana - Anthony Kennedymandy Bed[address] : 1985 AGE: 33 SEX: F [place], [place] [address] LOC: .ERS PHONE #:[phone] EXAM DATE: 10/15/2019 STATUS: REG ER FAX #: [phone] RAD NO: Page 2 Signed Report 1Patient Name: FELICIA MCCANN Unit No: [id number] EXAMS: CPT CODE: [id number] CT HEAD/BRAIN W/O CONT 48486 (Continued) Orig Print D/T: S: 10/16/2019 (0034) [facility] NAME: FELICIA MCCANN Radiology Department PHYS: Gian Kennedy [address] : 1985 AGE: 33 SEX: F [place], [place] [address] LOC: DAVID PHONE #: [phone] EXAM DATE: 10/15/2019 STATUS: REG ER FAX #: [phone] RAD NO: Page 3 Signed Report 1UR PROTEIN/CREATININE RATIO 2019-10-16 00:23:00 Test Item Value Reference Range Interpretation Comments UR PROTEIN RANDOM (test code = 14.0 mg/dL PROTU) UR CREATININE RANDOM (test 74.0 mg/dL code = CREATU) PROTEIN/CREATININE RATIO (test 180.0 mg/gcrea <200 code = P/CRATIO) - XR CHEST 2 [id number] 00:16:00 Patient Name: FELICIA MCCANN Unit No: [id number] EXAMS: CPT CODE: [id number] XR CHEST 2 V 82559 EXAM: CR, XR chest 2 views: 10/15/2019, [...] Sanna Hoffman Technologist: RT Jarocho Trnscrbd D/ (001) GarethJS38 Orig Print D/T: S: 10/16/2019 (0019) [facility] NAME: FELICIA MCCANN Radiology Department PHYS: Gian Kennedy [address] : 1985 AGE: 33 SEX: F [place], [place] [address] [facility]: [id number] LOC: DAVID PHONE #: [phone] EXAM DATE: 10/15/2019 STATUS: AMADOU ER FAX #: [phone] RAD NO: Page 1 Signed ReportDRUGS OF ABUSE [id number] 00:05:00 Test Item Value Reference Range Interpretation [...] ECHO .READ BACK & CONFIRME D? [facility]1923[facility]. DETECTION CUT O FF: 100 ng/mLPrevio usly reported result : POSITIVE Edited by: MIKEAmor on 10/16/19:0005OP IAQLU prev. reported as:POSITIVE H . RESULTS CALLED TO .. READ BACK & CONFIRMED? Y. B Y DonovanLAB.[facility] 10/14. UR PHENCYCLIDINE (PCP) NEGATIVE NEGATIVE DETEC TION CUT OFF: (test code = PHENCU) 25 ng/m L Comments to Manager Finance: Clean CatchSpecimen Comment: Clean CatchDRUGS OF ABUSE [id number] 00:04:00 Test Item Value Reference Range Interpretation [...] = OPIAQLU) .READ BACK & CONFIRMED? Y.BY MIKELDT 10/14 0890. DETECTION CUT OFF: 100 ng/mL UR PHENCYCLIDINE (PCP) NEGATIVE NEGATIVE DETEC TION CUT OFF: (test code = PHENCU) 25 ng/m L Comments to Manager Finance: Clean CatchSpecimen Comment: Clean CatchCOMPREHENSIVE METABOLIC [id number] 23:58:00 Test Item Value Reference Range Interpretation [...] 46-116 N code = ALKP) Comments to Manager Finance: Clean CatchSpecimen Comment: Clean CatchCREATINE KINASE (CK)2019-10-15 23:58:00 Test Item Value Reference Range Interpretation Comments CREATINE KINASE (CK) (test code = 81 Units/L 26-192 N CK) Comments to Manager Finance: Clean CatchSpecimen Comment: Clean CatchLIPASE 2019-10-15 23:58:00 Test Item Value Reference Range Interpretation Comments LIPASE (test code = LIP) 48 units/L 73-393 L Comments to Manager Finance: Clean CatchSpecimen Comment: Clean CatchMAGNESIUM 2019-10-15 23:58:00 Test Item Value Reference Range Interpretation Comments MAGNESIUM (test code = MAG) 1.7 mg/dL 1.8-2.4 L Comments to Manager Finance: Clean CatchSpecimen Comment: Clean CatchTHYROID STIMULATING [id number] 23:58:00 Test Item Value Reference Range Interpretation Comments THYROID STIMULATING 0.77 0.36-3.74 N Test Per formed in HORMONE (test code = MicroIn ternational Units/mL TSH) Comments to Manager Finance: Clean CatchSpecimen Comment: Clean CatchTROPONIN-I 2019-10-15 23:58:00 Test Item Value Reference Range Interpretation Comments TROPONIN-I (test code = TROPI) 0.043 ng/mL <0.056 N Comments to Manager Finance: Clean CatchSpecimen Comment: Clean CatchPROTHROMBIN [id number] 23:41:00 Test Item Value Reference Range Interpretation Comments PROTHROMBIN TIME PATIENT (test code 10.8 secs 10.4-12.4 N = PTP) Comments to Manager Finance: Clean CatchSpecimen Comment: Clean CatchIS PATIENT ON ANTICOAGULANTS ? NINTERNATIONAL NORMAL [id number] 23:41:00 Test Item Value Reference Range Interpretation [...] stemic embolism. 3.0 - 3.5 Comments to Manager Finance: Clean CatchSpecimen Comment: Clean CatchIS PATIENT ON ANTICOAGULANTS ? NTHROMBOPLASTIN TIME [id number] 23:41:00 Test Item Value Reference Range Interpretation Comments THROMBOPLASTIN TIME PARTIAL (test 30.1 secs 22-38 N code = PTT) Comments to Manager Finance: Clean CatchSpecimen Comment: Clean CatchIS PATIENT ON ANTICOAGULANTS ? ND-DIMER [id number] 23:41:00 Test Item Value Reference Range Interpretation [...] is 98% for rulingout DVT. Comments to Manager Finance: Clean CatchSpecimen Comment: Clean CatchIS PATIENT ON ANTICOAGULANTS ? NUA RFLX MICR CULT IF [id number] 23:36:00 Test Item Value Reference Range Interpretation [...] = MUCU) RARE NONE SEEN Comments to Manager Finance: Clean CatchSpecimen Comment: Clean CatchIndication for culture: Dysuria/FrequencyCBC W/AUTO [id number] 23:29:00 Test Item Value Reference Range Interpretation [...] NORMAL NORMAL code = PLTMR) Comments to Manager Finance: Clean CatchSpecimen Comment: Clean CatchFALLOPIAN TUBE,[id number] 13:52:00 RUN DATE: 10/08/19 [facility] PAGE 1 RUN TIME: 1734 Specimen Inquiry RUN USER: INTERFACE --PATIENT: FELICIA MCCANN LOC: SOL U #: [id number] AGE/SX: 33/F ROOM: [facility] RE10/06/19REG DR: Sanna Hoffman MD : 83 BED: A DIS: STATUS: ADM IN TLOC: SPEC #: [id number] RECD: 10/07/19-1009 STATUS: BRENDA REDory #: [id number] JR: 10/07/19- SUBM DR: Sanna Hoffman MD ENTERED: 10/07/19-1011SP TYPE: FALLBX OTHR : ORDERED: LEVEL IV CODES: N95709 - FALLOPIAN TUBE PROCEDURES: LEVEL IV (Incom plete) TISSUES: FALLOPIAN TUBE, NOS - RIGHT AND LEFT FALLOPIAN TUBE CLINICAL HISTORY Not provided (wpd) FINAL DIAGNOSIS Right fallopian tube, tubal ligation: - fallopian tube with complete surgical transection, no pathologic alteration Left fallopian tube, tubal ligation: - fallopian tube with complete surgical transection, no pathologic alteration CPT code(s): 63771 x2 pkg/kr GROSS DESCRIPTION ANATOMIC SOURCE OF [...] pink-purple and hyperemic. The lumen is pinpoint. Brain Picker sections are submitted as A1. Specimen #2 is designated "left fallopian tube" and consists of a 4.5 cm in length and 0.6 cm in diameter fimbriated fallopian tube. The serosa is pink-purple and hyperemic. The lumen is pinpoint. Brain Picker sections are submitted as B1. jovita/wplorraine 10/07/19 CONTINUED ON NEXT PAGE --- ---------RUN DATE: 10/08/19 [facility] PAGE 2 RUN TIME: 1734 Specimen Inquiry RUN USER: INTERFACE S PEC #: [id number] PATIENT: FELICIA MCCANN #[id number] (Continued) MICROSCOPIC DESCRIPTION Specimen #1 - the fallopian tube architecture is intact. The lumen is not dilated. A completely transected segment of fallopian tube is present. Specimen #2 - the fallopian tube architecture is intact. The lumen is not dilated. A completely transected segment of fallopian tube is present. kaylene/roger Signed Tiny Jurado 10/08/19 1352 END OF REPORT HGB [id number] 05:07:00 Test Item Value Reference Range Interpretation Comments HEMOGLOBIN (test code = HGB) 9.3 g/dL 10.7-13.9 L HEMATOCRIT (test code = HCT) 28.3 % 32.1-42.1 L Coronavirus 2019 nCoV [id number] 16:02:00 Test Item Value Reference Range Interpretation Comments Coronavirus 2019 nCoV Negative Negative RESUL TS CALLED TO Bedside (test code = BERENICE/A PUREAD BACK & [id number]) CONFIRMED? CHAI ManLAB.GF 10/06/19 1602 T his [...] AUTHORIZATION F ROM FDA AG HEPATITIS B [id number] 07:07:00 Test Item Value Reference Range Interpretation Comments AG HEPATITIS B SURFACE (test code NONREACTIVE NONREACTIVE = HBSAG) AB HEPATITIS C [id number] 07:07:00 Test Item Value Reference Range Interpretation Comments AB HEPATITIS C (test code = NONREACTIVE NONREACTIVE HCVAB) SIGNAL TO CUTOFF (test code = 0.13 <0.80 N CUTOFF) AB [id number] 07:07:00 Test Item Value Reference Range Interpretation Comments AB TREPONEMA (test code = TREPAB) NONREACTIVE NONREACTIVE AG HEPATITIS B [id number] 06:50:00 Test Item Value Reference Range Interpretation Comments AG HEPATITIS B SURFACE (test code NONREACTIVE NONREACTIVE = HBSAG) AB HEPATITIS C [id number] 06:50:00 Test Item Value Reference Range Interpretation Comments AB HEPATITIS C (test code = HCVAB) NONREACTIVE SIGNAL TO CUTOFF (test code = CUTOFF) <0.80 AB [id number] 06:50:00 Test Item Value Reference Range Interpretation Comments AB TREPONEMA (test code = TREPAB) NONREACTIVE NONREACTIVE CBC W/AUTO [id number] 02:32:00 Test Item Value Reference Range Interpretation [...] (test NORMAL NORMAL code = PLTMR) URINALYSIS [id number] 23:53:00 Test Item Value Reference Range Interpretation [...] = MUCU) 4+ NONE SEEN Comments to Manager Finance: CORETTA RICHARDSON SAMPLE: CLEAN [id number] 14:53:00 Test Item Value Reference Range Interpretation Comments CREATININE (test code = CREAT) 0.9 mg/dL 0.5-1.0 N SGOT/[id number] 14:53:00 Test Item Value Reference Range Interpretation Comments SGOT/AST (test code = AST) 46 units/L 15-37 H SGPT/[id number] 14:53:00 Test Item Value Reference Range Interpretation Comments SGPT/ALT (test code = ALT) 39 units/L 12-78 N URINALYSIS [id number] 14:28:00 Test Item Value Reference Range Interpretation [...] SEEN URINE SAMPLE: CLEAN CATCHComment MACCBC W/AUTO [id number] 14:24:00 Test Item Value Reference Range Interpretation [...] NORMAL NORMAL code = PLTMR) URINALYSIS W/O [id number] 16:36:00 Test Item Value Reference Range Interpretation Comments UA GLUCOSE DIPSTICK (test code = NEGATIVE NEGATIVE DGLUU) UA KETONE DIPSTICK (test code = TRACE NEGATIVE KETU) UA PROTEIN DIPSTICK (test code = NEGATIVE NEGATIVE PROU) IS NURSE PERFORMING TEST? SHAMEKA PROTEIN/CREATININE [id number] 16:36:00 Test Item Value Reference Range Interpretation Comments UR PROTEIN RANDOM (test code = 37.6 mg/dL PROTU) UR CREATININE RANDOM (test 290.4 mg/dL code = CREATU) PROTEIN/CREATININE RATIO (test 120.0 mg/gcrea <200 code = P/CRATIO) IS NURSE PERFORMING TEST? [id number] 16:16:00 Test Item Value Reference Range Interpretation Comments CREATININE (test code = CREAT) 0.7 mg/dL 0.5-1.0 N SGOT/[id number] 16:16:00 Test Item Value Reference Range Interpretation Comments SGOT/AST (test code = AST) 15 units/L 15-37 N SGPT/[id number] 16:16:00 Test Item Value Reference Range Interpretation Comments SGPT/ALT (test code = ALT) 16 units/L 12-78 N CBC W/AUTO [id number] 15:58:00 Test Item Value Reference Range Interpretation [...] NORMAL NORMAL code = PLTMR) URINALYSIS W/O [id number] 15:43:00 Test Item Value Reference Range Interpretation Comments UA GLUCOSE DIPSTICK (test code = NEGATIVE NEGATIVE DGLUU) UA KETONE DIPSTICK (test code = TRACE NEGATIVE KETU) UA PROTEIN DIPSTICK (test code = NEGATIVE NEGATIVE PROU) IS NURSE PERFORMING TEST? SHAMEKA PROTEIN/CREATININE [id number] 15:43:00 Test Item Value Reference Range Interpretation Comments UR PROTEIN RANDOM (test code = mg/dL PROTU) UR CREATININE RANDOM (test code = mg/dL CREATU) PROTEIN/CREATININE RATIO (test code mg/gcrea <200 = P/CRATIO) IS NURSE PERFORMING TEST? SHAMEKA PROTEIN [id number] 13:08:00 Test Item Value Reference Range Interpretation Comments UR PROTEIN RANDOM 21.8 mg/dL (test code = PROTU) UR PROTEIN 24HR 305 mg/24HR 20-150 HH RESULTS CALL ED TO (test code = DONNA NUGENT AD BACK DGYR81B) & CONFIRMED? MAURICIO ClearyBY F.LAB.ELB1 08/07 1308.Units for 24 HR Urine Protein h ave changed: New Un its = MG/24HR UR VOLUME (test code 1400 ML = VOL) COMPREHENSIVE METABOLIC [id number] 15:51:00 Test Item Value Reference Range Interpretation [...] 46-116 N code = ALKP) CBC W/AUTO [id number] 15:25:00 Test Item Value Reference Range Interpretation [...] NORMAL code = PLTMR) UR CREATININE CLEARANCE [id number] 16:27:00 Test Item Value Reference Range Interpretation Comments CREATININE CLEARANCE RESULT (test 180 ml/min 70-120 H code = CREATCLR) CREATININE (test code = CREAT) 0.6 mg/dL 0.5-1.0 N UR CREATININE RANDOM (test code = 120.2 mg/dL CREATU) UR VOLUME (test code = VOL) 1300 ML UR PROTEIN [id number] 16:27:00 Test Item Value Reference Range Interpretation Comments UR PROTEIN RANDOM 23.5 mg/dL (test code = PROTU) UR PROTEIN 24HR (test 306 mg/24HR 20-150 HH RESULT S CALLED TO code = KIUE33Q) APRIL.READ BACK & CONFIRMED? YES. BY F.LAB.[facility] 12/26 3457.Units for 24 HR Urine Protein h ave changed: New Un its = MG/24HR AMNISURE (ROM) [id number] 15:13:00 Test Item Value Reference Range Interpretation Comments AMNISURE (ROM) TEST (test code = NON-RUPTURED NON-RUPTURE AMNI) : *Amnisure QC OK? YES- US FET BIO PH NC W/O [id number] 10:31:00 Patient Name: FELICIA MCCANN Unit No: [id number] EXAMS: CPT CODE: [id number] US FET BIO PH NC W/O [id number] [facility] [address], [place] [address] OBSTETRICAL BIOPHYSICAL ULTRASOUND REPORT Pat. Name: FELICIA MCCANN. No: [id number] Study Date: 08/14/2019 9:40am , Age: 05 1985, 33 Pregnancies: 6, Para 1132 LMP: Unknown GA by 1st: 28w6d GA by US: 28w5d GA Selected: 28w6d (From First S) BETSY: 10/31/2019 Referring MD: Sanna Hoffman Principal Technical Specialist: Shante Lazo RDMS CPT4: USBPPWONST Hist/Ind: HTN SCAN 3 MEASUREMENTS AGE GROWTH EVALUATION Measurement GA Range Srce %for GA Ratios ----- ---- ------- BPD 7.2 cm 29w1d (67v3p-17y3s) Hadl BPD 57% FL/BPD 0.75 (0.71 - 0.87) HC 27.6 cm 29w6d (01h5w-26i1p) Hadl HC 71% FL/AC 0.21 (0.20 - 0.24) APD 8.2 cm APD HC/AC 1.10 (0.99 - 1.18) TAD 7.7 cm TAD CI 0.73 (0.70 - 0.86) AC 25.0 cm 29w1d (27w0d- 31w2d) Hadl AC 56% FL 5.4 cm 28w0d (08f8f-38t7a) Hadl FL 33% HL 5.0 cm 29w2d (34h9p-46r8h) Gian HL 56% GA for sonogram 28w5d (55k5g-82j5o) Weight Estimate: based on (BPD,HC,AC,FL) Hadlock Weight: 1320 gm (2122-5839) Hadlo : 2lbs, 14oz Normal: 1287 gm [...] observed tone noted breathing movements observed [facility] NAME: FELICIA MCCANN Radiology Department PHYS: Sanna Cavanaugh MD [address] : 1985 AGE: 33 SEX: F [place], [place] [address] LOC: Donovan3036 A PHONE #: [phone] EXAM DATE: 08/14/2019 STATUS: ADM IN FAX #: [phone] RAD NO: Page 1 Signed Report (CONTINUED)Patient Name: FELCIIA MCCANN Unit No: [id number] EXAMS: CPT CODE: [id number] US FET BIO PH NC W/O NST 96648 (Continued) Placental location: Anterior Placental maturity : Grade 1 There is no evidence of placenta previa. Amniotic fluid volume is normal. Uterus and adnexa: No significant abnormality is seen. Thank you for allowing us to participate in the care of this patient. Janie Lovell M.D. Electronic Signature 08/14/2019 10:31am Electronically Signed by Janie Lovell MD on08/14/2019 at 1031 Reported and signed by: Janie Lovell MD CC: Sanna Hoffman Technologist: Gloria Lazo RDMS Probe: Trnscrbd D/ (1031) t.SDR.NMG Orig Print D/T: S: 08/16/2019 (1155) [facility] NAME: FELICIA MCCANN Radiology Department PHYS: Sanna Cavanaugh MD [address] : 1985 AGE: 33 SEX: F [place] [address] LOC:Dhara6 A PHONE #: [phone] EXAM DATE: 08/14/2019 STATUS: ADM IN FAX #: [phone] RAD NO: Page2 Signed Report Patient Name: FELICIA MCCANN Unit No: [id number] EXAMS: CPT CODE: [id number] US FET BIO PH NC W/O NST 18101 (Continued) [facility] NAME: FELICIA MCCANN Radiology Department PHYS: Sanna Cavanaugh MD [address] : 1985 AGE: 33 SEX: F [place] [address] LOC: Donovan3036 A PHONE #: [phone] EXAM DATE: 08/14/2019 STATUS: ADM IN FAX #: [phone] RAD NO: Page 3 Signed Report- US FLW [id number] 10:31:00 Patient Name: FELICIA MCCANN Unit No: [id number] EXAMS: CPT [place]: [id number] [place] [address] [address] [place] [address] OBSTETRICAL BIOPHYSICAL ULTRASOUND REPORT Pat. Name: FELICIA MCCANN Pat. No: [id number] Study Date: 08/14/2019 9:40am , Age: 05 1985, 33 Pregnancies: 6, [id number] LMP: Unknown GA by 1st: 28w6d GA by US: 28w5d GA Selected: 28w6d (From First S) BETSY: 10/31/2019Referring MD: JO PAUL Principal Technical Specialist: Shante Lazo RDMS CPT4: USPREGFU Admitting MD: SANNA HOFFMAN Hist/Ind: HTN SCAN 3 GABINO SUREMENTS AGE GROWTH EVALUATION Measurement GA Range Srce %for GA Ratios ----- ---- ------- BPD 7.2 cm 29w1d (50d9u-72d4y) Hadl BPD 57% FL/BPD 0.75 (0.71 - 0.87) HC 27.6 cm 29w6d (09v6x-77g6j) Hadl HC 71% FL/AC 0.21 (0.20 - 0.24) APD 8.2 cm APD HC/AC 1.10 (0.99 - 1.18) TAD 7.7 cm TAD CI 0.73 (0.70 - 0.86) AC 25.0 cm 29w1d (27w0d- 31w2d) Hadl AC 56% FL 5.4 cm 28w0d (43c7k-01j7l) Hadl FL 33% HL 5.0 cm 29w2d (29p5k-48p3t) Gian HL 56% GA for sonogram 28w5d (58x4h-24t7x) Weight Estimate: based on (BPD,HC,AC,FL) Hadlock Weight: 1320 gm(7648-8490) Hadlo : 2lbs, 14oz Normal: 1287 gm (873-1857) Brenne Wt% 52% for 28.9 wks Cervical Lengt h: 3.9 cm Heart Rate: 140 bpm Amniotic Fluid Index: 17.2cm (09.2-23.1) Q1: 3.3cm Q2: 2.9cm Q3:6.5cm Q4: 4.4cm Biophysical Profile: 01/14 Breathin Tone: 2 Movement: 2 AFV: 2 CLINICAL SUMMARY Type of Gestation: Heerdia Intrauterine in transverse HEAD RIGHTpresentation. size is appropriate for gestational age. growth: Consistent with normal growth motion and organs seen: heart motion seen body and limb movements observed tone noted [facility] NAME: FELICIA MCCANN Radiology Department PHYS: Sanna Cavanaugh MD [address] : 1985 AGE: 33 SEX: F [place], [place] [address] LOC: Donovan3036 A PHONE #: [phone] EXAM DATE: STATUS: ADM IN FAX #: [phone] RAD NO: Page 1 Signed Report (CONTINUED) Patient Name: FELICIA MCCANN Unit No: [id number] EXAMS: CPT CODE: [id number] [place] [address] (Continued) breathing movements observed Placental location: Anterior [...] Technologist: Shante Lazo RDMS Probe: Trnscrbd D/ (103) t.BENJAMINR.NMG Orig Print D/T: S: 08/14/2019 (1031) [facility] NAME: FELICIA MCCANN Radiology Department PHYS: Sanna Cavanaugh MD [address] : 1985 AGE: 33 SEX: F [place] [address] LOC: Dhara6 A PHONE #: [phone] EXAM DATE: 08/14/2019 STATUS: ADM IN FAX #: [phone] RAD NO: Page 2 Signed Report Patient Name: FELICIA MCCANN Unit No: [id number] EXAMS: CPT CODE: [id number] [place] UP [address] (Continued) [facility] NAME: FELICIA MCCANN RadiologyDepartment PHYS: Sanna Cavanaugh MD [address] : 1985 AGE: 33 SEX: F [place] [address] LOC: Laurence.3036 A PHONE #: [phone] EXAM DATE: 08/14/2019 STATUS: ADMIN FAX #: [phone] RAD NO: Page 3 Signed ReportGLUCOSE [id number] 09:45:00 Test Item Value Reference Range Interpretation Comments GLUCOSE 2HR (test code = GLU2) 127 mg/dL 70-140 N 3HR GTT GLU2 GLU2HR from 306:CF:[id number].GLUCOSE [id number] 09:42:00 Test Item Value Reference Range Interpretation Comments GLUCOSE 3HR (test code = GLU3) 116 mg/dL 65-110 H 3HR GTT GLU3 GLU3HR from 306:CF:[id number].GESTATION SCREEN [id number] 07:21:00 Test Item Value Reference Range Interpretation Comments GESTATION SCREEN GLUCOSE (test code 142 MG/DL <150 = GLU1S) GLU GEST SCRN 1 HR GLU GLU1S from 306:CF:[id number].GLUCOSE [id number] 05:26:00 Test Item Value Reference Range Interpretation Comments GLUCOSE FASTING (test code = GLUF) 93 mg/dL 65-110 N GLU GEST SCRN GLUFAST GLUFAST from 306:CF:[id number].CHEMISTRY 7 [id number] 15:00:00 Test Item Value Reference Range Interpretation [...] = CA) 8.5 mg/dL 8.4-10.2 N LIVER [id number] 15:00:00 Test Item Value Reference Range Interpretation [...] 46-116 N code = ALKP) CBC W/AUTO [id number] 14:35:00 Test Item Value Reference Range Interpretation [...] NORMAL NORMAL code = PLTMR) UR PROTEIN [id number] 13:01:00 Test Item Value Reference Range Interpretation Comments UR PROTEIN RANDOM 14.5 mg/dL (test code = PROTU) UR PROTEIN 24HR (test 189 mg/24HR 20-150 H Units for 24 HR Urine code = VPXK30H) Protein have changed: New Units = MG/ 24HR UR VOLUME (test code 1300 ML = VOL) - US PREG AFTER [id number] 09:35:00 Patient Name: FELICIA MCCANN Unit No: [id number] EXAMS: CPT CODE: [id number] US PREG AFTER TRI [address] [facility] [address] [place], [place] [address] OBSTETRICAL ULTRASOUND REPORT Pat. Name: FELICIA MCCANN Pat. No: [id number] Study Date: 07/29/2019 9:25pm , Age: 05 1985, 33 Pregnancies: 6, Para 1132 LMP: Unknown GA by 1st: 26w4d GA by US: 26w1d GA Selected: 26w4d (From First S) BETSY: 10/31/2019 Referring MD: JO PAUL Principal Technical Specialist: Julianne Portillo RDMS CPT4: KYESTDY1M Admitting MD: SANNA HOFFMAN Hist/Ind: HIGH BP SCAN 2 AYAAN UREMENTS AGE GROWTH EVALUATION Measurement GA Range Srce %for GA Ratios ----- ---- ------- BPD 6.5 cm 26w3d (73c8w-01y2t) Hadl BPD 46% FL/BPD 0.75 (0.71 - 0.87) HC 24.2 cm 26w0d (91j0j-31y9j) Hadl HC 39% FL/AC 0.21 (0.20 - 0.24) APD 7.3 cm APD HC/AC 1.05 (1.00 - 1.19) TAD 7.3 cm TAD CI 0.80 (0.70 - 0.86) AC 22.9 cm 27w1d (59x1e-23p5v) Hadl AC 63% FL 4.9 cm 26w1d (81f5k-76g3a) Hadl FL 40% HL 4.5 cm 26w5d (57s8x-74a4v) Gian HL 53% GA forsonogram 26w1d (86s9k-78d5u) Weight Estimate: based on (BPD,HC,AC,FL) Hadlock Weight: [...] age. growth: Consistent with normal growth [facility] NAME: FELICIA MCCANN Radiology Department PHYS: Sanna Cavanaugh MD [address] : 1985 AGE: 33 SEX: F [place], [place] [address] LOC: Donovan3048 Ras PHONE #: [phone] EXAM DATE: 07/29/2019 STATUS: ADM IN FAX #: [phone] RAD NO: Page 1 Signed Report (CONTINUED) Patient Name: FELICIA MCCANN Unit No: [id number] EXAMS: CPT CODE: [id number] US PREG AFTER 1ST TRI 15527 (Continued) motion and organs seen: heart motion seen body and limb movements seen Four chamber heart observed Left ventricular outflow tract (LVOT) seen Right ventricular outflow tract (RVOT) seen Normal intracranial anatomy seen Umbilical cord insertion in fetus seen Fe maral stomach, Renal Fossa, Bladder and Spine seen [...] Orig Print D/T: S: 07/30/2019 (0935) [facility] NAME: FELICIA MCCANN Radiology Department PHYS: Sanna Cavanaugh MD [address] : 1985 AGE: 33 SEX: F [place], [place] [address] LOC: Laurence.3048 A PHONE #: [phone] EXAM DATE: 07/29/2019 STATUS: ADM IN FAX #: [phone] RAD NO: Page 2 Signed Report Patient Name: FELICIA MCCANN Unit No: [id number] EXAMS: CPT CODE: [id number] US PREG AFTER 1ST TRI [address] (Continued) [facility] NAME: FELICIA MCCANN Radiology Department PHYS: Sanna Cavanaugh MD [address] : 1985 AGE: 33 SEX: F [place], [place] [address] LOC: F.3048 A PHONE #: [phone] EXAM DATE: 07/29/2019 STATUS: ADM IN FAX #: [phone] RAD NO: Page 3Signed ReportGESTATION SCREEN [id number] 07:59:00 Test Item Value Reference Range Interpretation Comments GESTATION SCREEN GLUCOSE (test code 135 MG/DL <150 = GLU1S) GLU GEST SCRN 1 HR GLU GLU1S from 220:CF:[id number].GLUCOSE [id number] 05:55:00 Test Item Value Reference Range Interpretation Comments GLUCOSE FASTING (test code = GLUF) 96 mg/dL 65-110 N GLU GEST SCRN GLUFAST GLUFAST from 220:CF:[id number].[id number] 13:37:00 Test Item Value Reference Range Interpretation Comments CREATININE (test code = CREAT) 0.7 mg/dL 0.5-1.0 N SGOT/[id number] 13:37:00 Test Item Value Reference Range Interpretation Comments SGOT/AST (test code = AST) 12 units/L 15-37 L SGPT/[id number] 13:37:00 Test Item Value Reference Range Interpretation Comments SGPT/ALT (test code = ALT) 15 units/L 12-78 N ALKALINE PHOSPHATASE [id number] 13:37:00 Test Item Value Reference Range Interpretation Comments ALKALINE PHOSPHATASE TOTAL (test 50 units/L 46-116 N code = ALKP) [id number] 13:37:00 Test Item Value Reference Range Interpretation Comments AMYLASE (test code = RAISA) 30 units/L 30-110 N [id number] 13:37:00 Test Item Value Reference Range Interpretation Comments LIPASE (test code = LIP) 60 units/L 73-393 L CBC W/AUTO [id number] 13:19:00 Test Item Value Reference Range Interpretation [...] REQUIRED (test NORMAL NORMAL code = PLTMR) SGOT/[id number] 23:01:00 Test Item Value Reference Range Interpretation Comments SGOT/AST (test code = AST) 22 units/L 15-37 N SGPT/[id number] 23:01:00 Test Item Value Reference Range Interpretation Comments SGPT/ALT (test code = ALT) 26 units/L 12-78 N CHEMISTRY 7 [id number] 23:01:00 Test Item Value Reference Range Interpretation [...] = CA) 8.6 mg/dL 8.4-10.2 N URIC [id number] 23:01:00 Test Item Value Reference Range Interpretation Comments URIC ACID (test code = URIC) 3.7 mg/dL 2.6-6.0 N CHEMISTRY 7 [id number] 22:51:00 Test Item Value Reference Range Interpretation [...] = CA) 8.6 mg/dL 8.4-10.2 N URIC [id number] 22:51:00 Test Item Value Reference Range Interpretation Comments URIC ACID (test code = URIC) 3.7 mg/dL 2.6-6.0 N URINALYSIS [id number] 22:35:00 Test Item Value Reference Range Interpretation [...] = MUCU) RARE NONE SEEN Comments to Manager Finance: CORETTA MCCORD SAMPLE: CLEAN CATCHCBC W/AUTO DIFF [...] code = PLTMR) - US PREG UT [id number] 20:39:00 Patient Name: FELICIA MCCANN Unit No: [id number] EXAMS: CPT CODE: [id number] US PREG UT TRANSVAGINAL 295[address] Limited obstetrical ultrasound with transvaginal imaging of [...] measurements: The BPD measures 5.15 cm compatible with21 weeks 4 days. The HC measures 19.5 [...] Sanna Hoffman Technologist: Shante Lazo RDMS Probe: [id number] Trnscrbd D/ (2038) t.CUONG Orig Print D/T: S: 06/26/2019 (2041) [facility] NAME: FELICIA MCCANN Radiology Department PHYS: Sanna Cavanaugh MD [address] : 1985 AGE: 33 SEX: F [place] [address] LOC: DonovanROMAN PHONE #: [phone] EXAM DATE: 06/26/2019 STATUS: REG ER FAX #: [phone] NO: Page 1 Signed Report Patient Name: FELICIA MCCANN Unit No: [id number] EXAMS: CPT CODE: [id number] [facility] TRANSVAGINAL [address] (Continued) [facility] NAME: FELICIA MCCANN Radiology Department PHYS: Sanna aCvanaugh MD [address] : 1985 AGE: 33 SEX: F [place] [address] LOC: [place].ROAMN PHONE #: [phone] EXAM DATE: 06/26/2019 STATUS: REG ER FAX #: [phone] RAD NO: Page 2 Signed Report- US FLW [id number] 20:39:00 Patient Name: FELICIA MCCANN Unit No: [id number] EXAMS: C[place]: [id number] [address] Limited obstetrical ultrasound with transvaginal imaging of [...] estimated dateof delivery of 10/30/2019. SL: [phone] Reported and signed by: Jaiden Durham MD CC: Jo Paul MD; Sanna Hoffman Technologist: Shante Lazo RDMS Probe: Trnscrbd D/ (2038) Bhaavna Orig Print D/T: S: 06/26/2019 (2041) [facility] NAME: FELICIA MCCANN Radiology Department PHYS: HARSHA. Jo Paul MD [address] : 1985 AGE: 33 SEX: F [place], [place] [address] LOC: [facility] PHONE #: [phone] EXAM DATE: 06/26/2019 STATUS: REG ER FAX #: [phone] RAD NO: Page 1 Signed Report Patient Name: FELICIA MCCANN Unit No: [id number] EXAMS: CPT CODE: [id number] [place] [address] (Continued) [facility] NAME: FELICIA MCCANN Radiology Department PHYS: HARSHA.Jo Mckeon MD [address] : 1985 AGE: 33 SEX: [place], [place] [address] LOC: [facility] PHONE #: [phone] EXAM DATE: 06/26/2019 STATUS: REG ER FAX #: [phone] RAD NO: Page 2 Signed ReportCOMPREHENSIVE METABOLIC [id number] 20:15:00 Test Item Value Reference Range Interpretation [...] = ALKP) UA RFLX MICR CULT IF [id number] 19:55:00 Test Item Value Reference Range Interpretation [...] RARE-FEW Indication for culture: Suprapubic PainUR PROTEIN/CREATININE [id number] 19:55:00 Test Item Value Reference Range Interpretation Comments UR PROTEIN RANDOM (test code = <6 mg/dL PROTU) UR CREATININE RANDOM (test 22.8 mg/dL code = CREATU) PROTEIN/CREATININE RATIO (test 260.0 mg/gcrea <200 H code = P/CRATIO) Indication for culture: Suprapubic PainUA RFLX MICR CULT IF [id number] 19:51:00 Test Item Value Reference Range Interpretation [...] RARE-FEW Indication for culture: Suprapubic PainUR PROTEIN/CREATININE [id number] 19:51:00 Test Item Value Reference Range Interpretation Comments UR PROTEIN RANDOM (test code = mg/dL PROTU) UR CREATININE RANDOM (test code = mg/dL CREATU) PROTEIN/CREATININE RATIO (test code mg/gcrea <200 = P/CRATIO) Indication for culture: Suprapubic PainCBC W/AUTO [id number] 19:47:00 Test Item Value Reference Range Interpretation [...]
[2022-07-30] MEDS ORDERED: DIAZEPAM 5 MG TABLET ONE (17:51)
[2022-07-30] MEDS ORDERED: dexAMETHasone 10 MG/ML VIAL ONE (17:52)
[2022-07-30] MEDS ORDERED: MORPHINE 4 MG/ML SYR ONE (17:52)
[2022-07-30] MEDS ORDERED: KETOROLAC 30 MG/ML INJ ONE (17:52)
[2022-07-30] MEDS ORDERED: ONDANSETRON 4 MG (ODT) TAB ONE (17:52)
--- NOTE | 2022-07-30 19:34 | EDPHYS ---
Physician Documentation [facility] Name: Felicia Cheung Age: 36 yrs Sex: Female : 1985 Arrival Date: 07/30/2022 Time: 17:28 Bed 15 Private MD: See Farrell HPI: 07/30 17:40 This 36 yrs old Female presents to ER via Wheelchair with complaints of Back Pain. jmm 17:40 The patient presents with pain that is acute. The symptoms are located in the low back. jmm Onset: The symptoms/episode began/occurred acutely, today. This is a 36-year-old female with history of herniated disc in L5, hypertension the presents emerged part with complaints of lower back pain after she missed stepped approximately 3 days ago. Pain intensified today. Denies any urinary or bowel issues. Denies weakness. Denies numbness.. 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 - Social history:: Smoking status: Patient denies any tobacco usage or history of. Patient uses alcohol, occasionally. ROS: 17:40 Constitutional: Negative for fever, chills, and weight loss, Cardiovascular: Negative jmm for chest pain, palpitations, and edema, Respiratory: Negative for shortness of breath, cough, wheezing, and pleuritic chest pain. 17:40 Back: Positive for pain with movement. 17:40 All other systems are negative. Exam: 17:40 Constitutional: This is a well developed, well nourished patient who is awake, alert, jmm and in no acute distress. Head/Face: atraumatic. Eyes: EOMI, no conjunctival erythema appreciated ENT: Moist Mucus Membranes Neck: Trachea midline, Supple Chest/axilla: Normal chest wall appearance and motion. Cardiovascular: Regular rate and rhythm. No edema appreciated Respiratory: Normal respirations, no respiratory distress appreciated Abdomen/GI: Non distended 17:40 Back: pain, that is moderate, of the lumbar area. 17:40 Neuro: Orientation: is normal, Mentation: is normal, Memory: is normal, Extensor hallucis longus intact bilaterally. 17:40 Psych: Behavior/mood is pleasant, cooperative. Vital Signs: 17:40 BP 134 / 75; Pulse 84; Resp 19; Temp 98.5; Pulse Ox 100% ; Weight 88.45 kg; Pain 9/10; ap3 MDM: 17:40 Patient medically screened. [facility] 19:32 Data reviewed: vital signs, nurses notes. I considered the following discharge [facility] prescriptions or medication management in the emergency department Medications were administered in the Emergency Department. See MAR. Test considered but Not performed: MRI: No concerns for abscess, cord compression, cauda equina. Counseling: I had a detailed discussion with the patient and/or guardian regarding: the historical points, exam findings, and any diagnostic results supporting the discharge/admit diagnosis, the need for outpatient follow up, to return to the emergency department if symptoms worsen or persist or if there are any questions or concerns that arise at home. ED course: Pain is partially alleviated in the ED. Patient advised to follow-up with spine and otherwise given strict return precautions. Patient understood agrees plan of care.. 22:28 ED course: Evaluated the patient and discussed the findings with her at length. She kdr understood the findings and the need for possible MRI follow-up. She was happy with the care provided and the plan for discharged and follow-up. 07/30 20:25 Order name: Urine Dipstick-Ancillary; Complete Time: 22:17 EDWA 07/30 20:25 Order name: Urine --Ancillary (enter results) rv1 07/30 20:05 Order name: CT Lumbar Spine Wo Con bb 07/30 20:31 Order name: Urine --Ancillary; Complete Time: 22:17 EDMS 07/30 21:31 Order name: CT; Complete Time: 22:17 EDWA 07/30 20:05 Order name: Urine Dipstick-Ancillary (obtain specimen); Complete Time: 20:25 bb Administered Medications: 17:56 Drug: morphine 4 mg Route: IM; Site: left deltoid; ap3 17:56 Drug: Ketorolac 30 mg Route: IM; Site: left deltoid; ap3 17:57 Drug: Ondansetron 4 mg Route: PO; ap3 17:57 Drug: Valium (diazepam) 5 mg Route: PO; ap3 17:57 Drug: Decadron (dexamethasone) 10 mg Route: IM; Site: left deltoid; ap3 21:30 Drug: [place] (HYDROcodone-acetaminophen) (7.5 mg-325 mg) 1 tabs Route: PO; kl 21:47 Follow up: Response: No adverse reaction kl 22:30 Follow up: Response: No adverse reaction; Marked relief of symptoms 07/31 00:06 Follow up: Response: No adverse reaction Disposition: 07/30 22:28 Co-signature as Attending Physician, Fabrizio Morel MD I agree with the assessment and kdr plan of care. Disposition Summary: 07/30/22 19:33 Discharge Ordered Location: Home [facility] Condition: Stable [facility] Diagnosis - Low back pain [facility] Followup: [facility] - With: Private Physician - When: 2 - 3 days - Reason: Recheck today's complaints, Continuance of care, Re-evaluation by your physician Discharge Instructions: - Discharge Summary Sheet [facility] - Acute Back Pain, Adult [facility] Forms: - Work release form [facility] - Medication Reconciliation Form [facility] - Thank You Letter [facility] - Antibiotic Education [facility] - Prescription Opioid Use [facility] Prescriptions: - Zanaflex 4 mg Oral Tablet - take 1 tablet by ORAL route every 8 hours As needed; 20 tablet; Refills: 0, [facility] Product Selection Permitted - Diclofenac Sodium 75 mg Oral Tablet Sustained Release - take 1 tablet by ORAL route 2 times per day; 30 tablet; Refills: 0, Product [facility] Selection Permitted - Medrol (Jonathan) 4 mg Oral Tablets, Dose Pack - take 1 tablet by ORAL route as directed - follow package instructions; 1 [facility] packet; Refills: 0, Product Selection Permitted Signatures: Dispatcher [employer] Angela Daniels RN RN kl Rittger, Kevin, MD MD kdr Mickail, Joel, PA PA jmm Ballard, Brenda RN Leann Rendon RN RN ap3
--- NOTE | 2022-07-30 19:34 | ER ---
Nurse's Notes [facility] Name: Felicia Cheung Age: 36 yrs Sex: Female : 1985 Arrival Date: 07/30/2022 Time: 17:28 Bed 15 Private MD: Diagnosis: Low back pain Presentation: 07/30 17:40 Chief complaint: Patient states: she has a hx of herniated back issues, and woke up ap3 this morning with back pain. patient reports that the pain radiates up her spine and down into her legs. Coronavirus screen: At this time, the client does not indicate any symptoms associated with coronavirus-19. Ebola Screen: No symptoms or risks identified at this time. Initial Sepsis Screen: Does the patient meet any 2 criteria? No. Patient's initial sepsis screen is negative. Does the patient have a suspected source of infection? No. Patient's initial sepsis screen is negative. Risk Assessment: Do you want to hurt yourself or someone else? Patient reports no desire to harm self or others. Onset of symptoms was July 30, 2022. 17:40 Method Of Arrival: Wheelchair ap3 17:40 Acuity: COMPA 4 ap3 Triage Assessment: 17:42 General: Appears uncomfortable, Behavior is calm, cooperative, appropriate for age. ap3 Pain: Complains of pain in back Pain radiates to right leg Pain currently is 8 out of 10 on a pain scale. Neuro: Level of Consciousness is awake, alert, obeys commands, Oriented to person, place, time, situation. Cardiovascular: Patient's skin is warm and dry. Respiratory: Airway is patent Respiratory effort is even, unlabored, Respiratory pattern is regular, symmetrical. 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 - Social history:: Smoking status: Patient denies any tobacco usage or history of. Patient uses alcohol, occasionally. Screenin:43 Abuse screen: Denies threats or abuse. Nutritional screening: No deficits noted. ap3 Tuberculosis screening: No symptoms or risk factors identified. 07/31 00:06 [facility] ED Fall Risk Assessment (Adult) History of falling in the last 3 months, including since admission No falls in past 3 months (0 pts) Confusion or Disorientation No (0 pts) Intoxicated or Sedated No (0 pts) Impaired Gait Yes (1 pt) Mobility Assist Device Used No (0 pt) Altered Elimination No (0 pt) Score/Fall Risk Level 0 - 2 = Low Risk Oriented to surroundings, Maintained a safe environment. Assessment: 07/30 20:50 General: Appears distressed, uncomfortable, Behavior is cooperative. Pain: Complains of kl pain in lumbar area and right leg and back Pain currently is 10 out of 10 on a pain scale. Neuro: No deficits noted. Cardiovascular: No deficits noted. Respiratory: No deficits noted. GI: No deficits noted. No signs and/or symptoms were reported involving the gastrointestinal system. : No deficits noted. No signs and/or symptoms were reported regarding the genitourinary system. EENT: No deficits noted. No signs and/or symptoms were reported regarding the EENT system. Derm: No deficits noted. No signs and/or symptoms reported regarding the dermatologic system. Musculoskeletal: Reports pain in lumbar area and right leg and back. Vital Signs: 17:40 BP 134 / 75; Pulse 84; Resp 19; Temp 98.5; Pulse Ox 100% ; Weight 88.45 kg; Pain 9/10; ap3 ED Course: 17:28 Patient arrived in ED. as 17:29 Sudhakar Pryor PA is PHCP. [facility] 17:29 See Rosario MD is Attending Physician. [facility] 17:41 Triage completed. ap3 17:43 Arm band placed on left wrist. ap3 17:43 Patient has correct armband on for positive identification. ap3 20:51 No provider procedures requiring assistance completed. 07/31 00:06 Patient did not have IV access during this emergency room visit. Administered Medications: 07/30 17:56 Drug: morphine 4 mg Route: IM; Site: left deltoid; ap3 17:56 Drug: Ketorolac 30 mg Route: IM; Site: left deltoid; ap3 17:57 Drug: Ondansetron 4 mg Route: PO; ap3 17:57 Drug: Valium (diazepam) 5 mg Route: PO; ap3 17:57 Drug: Decadron (dexamethasone) 10 mg Route: IM; Site: left deltoid; ap3 21:30 Drug: [place] (HYDROcodone-acetaminophen) (7.5 mg-325 mg) 1 tabs Route: PO; kl 21:47 Follow up: Response: No adverse reaction kl 22:30 Follow up: Response: No adverse reaction; Marked relief of symptoms 07/31 00:06 Follow up: Response: No adverse reaction Medication: 07/30 17:43 VIS not applicable for this client. ap3 Outcome: 19:33 Discharge ordered by MD. izaguirre 07/31 00:06 Discharged to home ambulatory. Condition: unchanged Discharge instructions given to patient, Instructed on discharge instructions, follow up and referral plans. medication usage, Demonstrated understanding of instructions, follow-up care, medications, Prescriptions given X 3. 00:07 Patient left the ED. Signatures: Angela Winn RN Sudhakar Galo PA PA jmm Martinez, Amelia as Prokisch, Amanda, RN RN ap3
[2022-07-30 20:25] LABS: Urine Blood Negative (Negative); Urine Glucose Negative (Negative); Urine Protein Negative (Negative); Urine pH 5.5 (5.0-7.0)
[2022-07-30 20:31] LABS: Urine Specific Gravity/Preg 1.015 (1.005-1.030)
--- NOTE | 2022-07-30 21:30 | RAD REPORT ---
EXAM DESCRIPTION: CT - Spine Lumbar Wo Con - 07/30/2022 8:55 pm CLINICAL HISTORY: Back pain, radiating down the legs PAIN COMPARISON: Spine Lumbar Wo Con dated 12/10/2021; Lumbar Spine Wo Con dated 03/25/2022 TECHNIQUE: Axial noncontrast CT imaging of the lumbar spine was performed with coronal and sagittal re-formatted images. All CT scans are performed using dose optimization technique as appropriate and may include automated exposure control or mA/KV adjustment according to patient size. FINDINGS: No acute lumbar spine fracture seen. Bilateral pars interarticularis defects are again not ed. No aggressive marrow pattern or malalignment. Paraspinal tissues are normal in thickness. No paraspinal abscess or hematoma seen. Disc height loss with endplate remodeling and Schmorl's node formation at L5-S1. New disc vacuum phen omenon at that level. Intervertebral disc disease assessment is inherently limited by CT. Allowing for this limitation, the re is re- demonstration of broad-based posterior disc bulge at L5-S1, with partial mineralization yamilet ng the annulus. Bilateral mild facet arthropathy is seen at that level. Findings contribute to modera te bilateral foraminal stenosis, worse on the left. Other neural foramina patent. No bony canal steno sis. IMPRESSION: Degenerative changes at L5-S1 with a broad-based this bulge not showing some annular min eralization. Moderate bilateral foraminal narrowing noted at that level. No bony canal stenosis. The neural foramina are patent. Consider MRI follow-up for improved assessmen t of disc disease and neural impingement, if clinically desired.
[2022-07-30] MEDS ORDERED: HYDROCODONE/APAP 7.5/325 MG TAB ONE (21:32)
[2022-07-31 01:03] VITALS: BP 134/75; TEMP 98.5; O2SAT 100
== END 2022-07-31 00:07 | disposition home or self-care (01) ==
LOC: ER 17:25
DX: M54.50 Low back pain, unspecified (principal)
CPT/HCPCS: 81025; 81003; 72131; 96372; 99283; Q0162; J1100

== ENCOUNTER 2023-01-09 12:57 | Emergency (ER) | payer OTHER ==
--- OUTSIDE RECORDS SUMMARY | 2023-01-09 13:10 | XMS REPORT | Continuity of Care Document ---
:1985 Author Organization [facility] t Address [address] [facility]. [address] [place] [address] Care Team Providers Name Role Phone No, Pcp [facility] Primary Care Physician Unavailable DION DOW Attending Clinician Unavailable Sanna Hoffman Attending Clinician Unavailable Dion Dow MD Attending Clinician Shane Menendez MD Attending Clinician [phone] Darian Roche MD Attending Clinician LEANN YAO Attending Clinician Unavailable Leann Yao MD Attending Clinician Unknown, Attending Attending Clinician Unavailable TATI DAMON Attending Clinician Unavailable Tati Damon MD Attending Clinician CAYDEN RODRIGUEZ Attending Clinician Unavailable CAYDEN RODRIGUEZ Attending Clinician Unavailable Doctor Unassigned, [place] [address] Attending Clinician Unavailable Abraham TOAP, Gabriela Attending Clinician GABRIELA JARRETT Attending Clinician Unavailable MAGGIE LOW Attending Clinician Unavailable MAIK HADLEY Attending Clinician Unavailable Maik Hadley DO Attending Clinician Ebcarol [employer], Tristan Attending Clinician EBMATIASMTRISTAN Attending Clinician Unavailable Tenzin [employer], Bryson Attending Clinician BRYSON BEASLEY Attending Clinician Unavailable BENNIE DOW III Attending Clinician Unavailable King DINA MD, Bennie Greer Attending Clinician Fernanda Sargent RN Attending Clinician Unavailable Mayur [employer], Graham Attending Clinician GRAHAM WEST Attending Clinician Unavailable TASHI MARTÍNEZ Attending Clinician Unavailable Chase HUNTER, Shane Rodriguez Attending Clinician [phone] Chay HUNTER, Farzaneh Vicente Attending Clinician Tashi Martínez MD Attending Clinician Jer HUNTER, Camila Thayer Attending Clinician AYE MEJIA Attending Clinician Unavailable Aye Mejia MD Attending Clinician FELIPA SMITH Attending Clinician Unavailable Felipa Smith PA-C Attending Clinician Yesi Cifuentes RN Attending Clinician Unavailable Lab, Adc Fam Pob I Attending Clinician Unavailable Ivelisse ROSS, Venus Attending Clinician DION DOW Admitting Clinician Unavailable Sanna Hoffman Admitting Clinician Unavailable MAGGIE LOW Admitting Clinician Unavailable MAIK HADLEY Admitting Clinician Unavailable TASHI MARTNÍEZ Admitting Clinician Unavailable AYE MEJIA Admitting Clinician Unavailable Payers Payer Name Policy Type Policy Number Effective Date Expiration Date S ource MEDICAID COMM [id number] 2019 HEALTH CHOICE 00:00:00 [facility] [id number] 2019 CHOICE [place] STAR 00:00:00 Problems Condition Condition Condition Status Onset Resolution Last Treating Co mments Source Name Details Category Date Date Treatment Clinician Date Pars Pars Disease Active [facility] defect [facility] defect [facility] 06 [facility] lumbar lumbar 00:00: Medical spine spine 00 Center Lumbago Lumbago Disease Active [facility] 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 [facility]: [place] dical 00 Center No known No known Disease Unive rs active active ity of problems problems [facility] [place] [facility] Allergies, Adverse Reactions, Alerts Allergy Allergy Status Severity Reaction(s) Onset Inactive Treating Comm ents Source Name Type Date Date Clinician No Known DA Active [facility] [place] No Known DA Active [facility]ergie 1-22 [facility] [place] CODEINE DA Active U VOMIT HYPER 2007-0 [facility] 3-14 [facility] [place] No Known DA Active U 2006-0 [facility] Contrast 3-14 [facility] Allergie 00:00: [facility] [place] No Known DA Active U 2006-0 [facility] Food 3-14 [facility] Allergie 00:00: [facility] 00 [facility] [place] No Known DA Active U 2007-0 [facility] Other 3-14 [facility] Allergie 00:00: [facility] [place] NO KNOWN Drug Active Univers ALLERGIE Class ity of S [facility] [place] [facility] NO KNOWN Allergy Active [facility] Social History Social Habit Start Date Stop Date Quantity Comments Source History SDOH [facility] o f Alcohol Frequency [place] [facility] History SDOH University o f Alcohol Std [place] [facility] Drinks Branch History SDOH University o f Alcohol Binge [place] [facility] History SDOH [facility] History of Cigarette Smoker [facility] tobacco use [facility] Cent[facility] r Alcohol intake 2022-12-16 2022-12-16 [facility]er [facility] alcohol Medical Center (finding) History SDOH 2022-12-13 2022-12-[address] [facility] Transport Med 00:00:00 00:00:[address] History [facility] 2022-12-13 2022-12-[address] [facility] Housing Unable to 00:00:00 00:00:00 Medical Center Pay History [facility] 2022-12-13 2022-12-[address] [facility] Housing Places 00:00:00 00:00:00 Medical Ce nter Lived History [facility] 2022-12-13 2022-12-[address] [facility] Housing Homeless 00:00:00 00:00:00 Medical Center Last Year Exposure to 2022-12-02 2022-12-[address] [facility] SARS-CoV-2 00:00:00 11:58:00 Medical Center (event) Alcohol Comment 2022-12-11 2022-12-[address] [facility] 00:00:00 00:00:00 [facility] Center Tobacco use and 2022-12-11 2022-12-11 Smokeless [address] [facility] exposure 00:00:00 00:00:00 non-user Medical Center Sex Assigned At [address] [facility] 00:00:00 00:00:00 [facility] Center Smoking Status Start Date Stop Date Source Unknown if ever smoked [facility] Ex-smoker 2022-12-11 00:00:00 2022-12-11 00:00:00 [facility] Never smoked tobacco [facility] Medications Ordered Filled Start Stop Current Ordering Indication Dosage Frequency Signature Comments Components Source Medication Medication Date Date Medication? Clinician (SIG) Name Name biotin 1 mg Yes Take by [facility] 7-12 [facility]. [facility] 12:53: [address] biotin 1 mg Yes Take by [facility] 7-12 [facility]. [facility] 12:53: [address] biotin 1 mg 0 Yes Take by [facility] Cap 7-12 mouth. [facility]ukes 12:53: [address] Yes 1{tbl} QD Take 1 [facility] t vitamin 7-11 tablet by Delfin w/calcium-i 13:00: mouth Medic al beatris-folate 00 daily. Center ( PLUS) 27 mg iron- 1 mg Tab 0 Yes 1{tbl} QD Take 1 [facility] t vitamin 7-11 tablet by [facility]ukes w/calcium-i 13:00: mouth Medic al beatris-folate 00 daily. Center ( PLUS) 27 mg iron- 1 mg Tab 0 Yes 1{tbl} QD Take 1 [facility] t vitamin 7-11 tablet by Lukes w/calcium-i 13:00: mouth Medic al beatris-folate 00 daily. Center ( PLUS) 27 mg iron- 1 mg Tab acyclovir 2022- No 800mg [id number] Take [address] (ZOVIRAX) 12-17 [id number] tablet L ukes 800 MG 00:00: 23:59 3D (800 mg Medical tablet 00 :00 total) by Center mouth 3 (three) times daily for 3 days. ondansetron 2022-2022- No 4mg Take [address] [facility] (ZOFRAN-ODT 12-17 tablet (4 Audrey kes ) 4 MG 00:00: 23:59 mg total) Medic al disintegrat 00 :00 by mouth Cent er ing tablet every 12 (twelve) hours as needed for Nausea for up to 3 days. acyclovir 2022-0 2022- No 800mg [id number] Take [address] (ZOVIRAX) 12-17 [id number] tablet L ukes 800 MG 00:00: 23:59 3D (800 mg Medical tablet 00 :00 total) by Center mouth 3 (three) times daily for 3 days. ondansetron 2022-0 2022- No 4mg Take [address] [facility] (ZOFRAN-ODT 12-17 tablet (4 Audrey kes ) 4 MG 00:00: 23:59 mg total) Medic al disintegrat 00 :00 by mouth Cent er ing tablet every 12 (twelve) hours as needed for Nausea for up to 3 days. acyclovir 2022-0 2022- No 800mg [id number] Take [address] (ZOVIRAX) 12-17 [id number] tablet L ukes 800 MG 00:00: 23:59 3D (800 mg Medical tablet 00 :00 total) by Center mouth 3 (three) times daily for 3 days. ondansetron 2022- No 4mg Take [address] [facility] (ZOFRAN-ODT 7-11 07-14 tablet (4 Audrey kes ) 4 MG 00:00: 23:59 mg total) Medic al disintegrat 00 :00 by mouth Cent er ing tablet every 12 (twelve) hours as needed for Nausea for up to 3 days. docusate 2022- Yes 100mg Take 1 [facility]I [facility] t sodium 7-10 07-20 capsule Lukes (COLACE) 00:00: 23:59 (100 mg Medic al 100 MG 00 :00 total) by Center capsule mouth 2 (two) times daily as needed for Constipati on for up to 10 days. docusate 2022- Yes 100mg Take 1 [facility] t sodium 7-10 07-20 capsule Lukes (COLACE) 00:00: 23:59 (100 mg Medic al 100 MG 00 :00 total) by Center capsule mouth 2 (two) times daily as needed for Constipati on for up to 10 days. docusate 2022- No 100mg Take 1 CHI S t sodium 7-10 07-20 capsule [facility]ukes (COLACE) 00:00: 23:59 (100 mg Medic al 100 MG 00 :00 total) by Center capsule mouth 2 (two) times daily as needed for Constipati on for up to 10 days. lisinopril- 2022- No 1{tbl} QD Take [address] hydroCHLORO 7- 07-06 tablet by Audrey mcneil thiazide 22:49: 00:00 mouth Medical (PRINZIDE,Z 19 :00 daily. [place] ESTORETIC) 20-25 mg per tablet lisinopril- 2022- No 1{tbl} QD Take [address] hydroCHLORO 7- 07-06 tablet by Audrey gilmans thiazide 22:49: 00:00 mouth Medical (PRINZIDE,Z 19 :00 daily. Center ESTORETIC) 20-25 mg per tablet lisinopril- 2022- No 1{tbl} QD Take [address] hydroCHLORO 7- 07-06 tablet by Audrey kes thiazide 22:49: 00:00 mouth Medical (PRINZIDE,Z 19 :00 daily. [place] ESTORETIC) 20-25 mg per tablet lisinopril- Yes 1{tbl} QD Take [address] hydroCHLORO 7-05 tablet by Todd aguilar thiazide 08:45: mouth Medical (PRINZIDE,Z 41 daily. [facility]) 20-25 mg per tablet Yes 1{tbl} QD Take 1 CHI S t vitamin 7-05 tablet by Delfin w/calcium-i 08:39: mouth Medic al beatris-folate 15 daily. [place] ( PLUS) 27 mg iron- 1 mg Tab biotin 1 mg Yes Take by [facility] Cap 7-05 mouth. [place] 08:39: Medical 15 [place] EPINEPHrine 2022- No .3mg 0.3 mg, Un amisha (PF) 12-04 Subcutaneo ity of 1:1,000 (1 00:15: 23:12 [place], ONCE, [place] mg/mL) 00 :00 1 dose, On Medical (ADRENALIN Tue Branch (PF)) 12/03/22 at injection 1915, 0.3 mg Routine valACYclovi 2022- Yes [id number] 1g Take 1 Univers r (VALTREX) 12-04- tablet by it y of 1 gram 00:00: 04:59 mouth in [place] tablet 00 :00 the Medical morning Branch and 1 tablet in the evening. Do all this for 7 days. valACYclovi 2022- Yes [id number] 1g Take 1 Univers r (VALTREX) 12-04- tablet by it y of 1 gram 00:00: 04:59 mouth in [place] tablet 00 :00 the Medical morning Branch and 1 tablet in the evening. Do all this for 7 days. predniSONE 2022- Yes [id number] 40mg Take 2 Univers 20 mg -03 01-05 tablets by ity of tablet 00:00: 04:59 mouth in [place] 00 :00 the Medical morning Branch for 6 days. predniSONE 2022- Yes [id number] 40mg Take 2 Univers 20 mg 6- 07-05 tablets by ity of tablet 00:00: 04:59 mouth in [place] 00 :00 the Medical morning Branch for 6 days. predniSONE 2022- Yes [id number] 40mg Take 2 Univers 20 mg 12-04 0705 tablets by ity of tablet 00:00: 04:59 mouth in [place] 00 :00 the Medical morning Branch for 6 days. NaCl 0.9% 2022- No 1000mL at 999 Uni vers (NS) bolus 12-03 mL/hr, ity of infusion 23:15: 00:57 1,000 mL, Yogesh as 1,000 mL 00 :00 IV Medical Infusion, Branch ONCE, 1 dose, On Fri12/03/22 at 1815, ADAMARIS ondansetron 2022- No 8mg 8 mg, Slow Univers (ZOFRAN 12-03 IV Push, ity of (PF)) 23:00: 22:54 ONCE, 1 [place] injection 8 00 :00 dose, On Medi jono mg [facility] 12/03/22 at 1800, ADAMARIS famotidine 2022- No 20mg 20 mg, Univ ers (PEPCID 12-03 Slow IV ity of (PF)) 22:30: 22:38 Push, [place] injection 00 :00 ONCE, 1 Medical 20 mg dose, On Branch Fri12/03/22 at 1730, ADAMARIS diphenhydrA 2022- No 50mg 50 mg, Uni vers MINE 12-03 Slow IV ity of (BENADRYL) 22:30: 22:36 Push, [place] injection 00 :00 ONCE, 1 Medical 50 mg dose, On Branch Fri12/03/22 at 1730, STAT dexamethaso 2022- No 10mg 10 mg, Uni vers ne sod phos 12-03 Slow IV ity of PF 22:30: 22:40 Push, [place] injection 00 :00 ONCE, 1 Medical 10 mg dose, On Branch Fri12/03/22 at 1730, 1 mL EPINEPHrine Yes [id number] Self-injec Univers (EPIPEN) 12-03 t once in ity of 0.3 mg/0.3 00:00: event of Yogesh as mL 00 severe Medical injection allergic Branch reaction ondansetron Yes [id number] 1-2 U nivers 4 mg tablet 12-03 tablets ity o f 00:00: every 8 [place] 00 hours as Medical needed for Branch nausea EPINEPHrine 2023-0 Yes [id number] Self-injec Univers (EPIPEN) 6-27 t once in ity of 0.3 mg/0.3 00:00: event of Yogesh as mL 00 severe Medical injection allergic Branch reaction ondansetron 3-0 Yes [id number] 1-2 U nivers 4 mg tablet 6-27 tablets ity o f 00:00: every 8 [place] 00 hours as Medical needed for Branch nausea EPINEPHrine 2023-0 Yes [id number] Self-injec Univers (EPIPEN) 6-27 t once in ity of 0.3 mg/0.3 00:00: event of Yogesh as mL 00 severe Medical injection allergic Branch reaction ondansetron 3-0 Yes [id number] 1-2 U nivers 4 mg tablet 6-27 tablets ity o f 00:00: every 8 [place] 00 hours as Medical needed for Branch nausea methylPREDN 2023-0 Yes [id number] Take by Univers ISolone 6-14 mouth ity of (MEDROL, 00:00: SEE-INSTRU Yogesh as ERICK,) 4 mg 00 CTIONS. Medica l tablets follow Branch package directions gabapentin 2023-0 Yes [id number] 300mg Take 1 Univers 300 mg 6-14 capsule by ity of capsule 00:00: mouth in [place] the Medical morning Branch and 1 capsule at noon and 1 capsule in the evening. methylPREDN 2023-0 Yes [id number] Take by Univers ISolone 6-14 mouth ity of (MEDROL, 00:00: SEE-INSTRU Yogesh as ERICK,) 4 mg 00 CTIONS. Medica l tablets follow Branch package directions gabapentin 2023-0 Yes [id number] 300mg Take 1 Univers 300 mg 6-14 capsule by ity of capsule 00:00: mouth in [place] the Medical morning Branch and 1 capsule at noon and 1 capsule in the evening. methylPREDN 2023-0 Yes [id number] Take by Univers ISolone 6-14 mouth ity of (MEDROL, 00:00: SEE-INSTRU Yogesh as ERICK,) 4 mg 00 CTIONS. Medica l tablets follow Branch package directions gabapentin 2023-0 Yes [id number] 300mg Take 1 Univers 300 mg 6-14 capsule by ity of capsule 00:00: mouth in [place] 00 the Medical morning Branch and 1 capsule at noon and 1 capsule in the evening. methylPREDN 2023-0 Yes [id number] Take by Univers ISolone 6-14 mouth ity of (MEDROL, 00:00: SEE-INSTRU Yogesh as ERICK,) 4 mg 00 CTIONS. Medica l tablets follow Branch package directions gabapentin 3-0 Yes [id number] 300mg Take 1 Univers 300 mg 6-14 capsule by ity of capsule 00:00: mouth in [place] 00 the Medical morning Branch and 1 capsule at noon and 1 capsule in the evening. methylPREDN 2023-0 Yes [id number] Take by Univers ISolone 6-14 mouth ity of (MEDROL, 00:00: SEE-INSTRU Yogesh as ERICK,) 4 mg 00 CTIONS. Medica l tablets follow Branch package directions gabapentin 2022-0 Yes [id number] 300mg Take 1 Univers 300 mg 6-14 capsule by ity of capsule 00:00: mouth in [place] [address] the Medical morning Branch and 1 capsule at noon and 1 capsule in the evening. methylPREDN 3-0 Yes [id number] Take by Univers ISolone 6-14 mouth ity of (MEDROL, 00:00: SEE-INSTRU Yogesh as ERICK,) 4 mg 00 CTIONS. Medica l tablets follow Branch package directions gabapentin 2022-0 Yes [id number] 300mg Take 1 Univers 300 mg 6-14 capsule by ity of capsule 00:00: mouth in [place] [address] the Medical morning Branch and 1 capsule at noon and 1 capsule in the evening. traMADoL 50 2022-0 2022- Yes [id number] 50mg Take 1 Uni vers mg tablet 11-20 tablet by ity of 00:00: 04:59 mouth [place] 00 :00 every 6 Medical (six) Branch hours as needed for Pain (scale 7-10) for up to 7 days. Indication s: acute pain traMADoL 50 2022-0 2022- Yes [id number] 50mg Take 1 Uni vers mg tablet 11-20- tablet by ity of 00:00: 04:59 mouth [place] 00 :00 every 6 Medical (six) Branch hours as needed for Pain (scale 7-10) for up to 7 days. Indication s: acute pain traMADoL 50 2022-0 2022- Yes [id number] 50mg Take 1 Uni vers mg tablet 11-20-22 tablet by ity of 00:00: 04:59 mouth [place] 00 :00 every 6 Medical (six) Branch hours as needed for Pain (scale 7-10) for up to 7 days. Indication s: acute pain cyclobenzap 2022-0 Yes 10mg 10 mg, Univ ers rine 6-13 Oral, TID, ity of (FLEXERIL) 01:00: First dose [place] tablet 10 00 on [facility] Medical 11/18/22 at Branch 2000, Until Discontinu ed, Routine morpHINE (4 2022- No 4mg 4 mg, Slow Univers mg/mL) 11-18 IV Push, ity of injection 4 23:30: 23:35 ONCE, 1 [place] mg 00 :00 dose, On [facility] 11/18/22 at 1830, STAT morpHINE (4 2022-0 2022- No 4mg 4 mg, Slow Univers mg/mL) 11-18 IV Push, ity of injection 4 21:45: 21:46 ONCE, 1 [place] mg 00 :00 dose, On [facility] 11/18/22 at 1645, STAT NaCl 0.9% 2022- No 1000mL at 999 Uni vers (NS) bolus 11-18 mL/hr, ity of infusion 21:30: 23:35 1,000 mL, Yogesh as 1,000 mL 00 :00 IV Medical Infusion, Branch ONCE, 1 dose, On [facility] 11/18/22 at 1630, ADAMARIS ketorolac 2022-0 2022- No 15mg 15 mg, Unive rs (TORADOL) 11-18 Slow IV ity of injection 21:15: 20:58 Push, [place] 15 mg 00 :00 ONCE, 1 Medical dose, On Branch [facility] 11/18/22 at 1615, Routine cyclobenzap 2022-0 Yes [id number] 10mg Take 1 Univers rine 10 mg 6-12 tablet by ity of tablet 00:00: mouth [place] 00 every 8 Medical (eight) Branch hours as needed for Muscle Spasms. cyclobenzap 3-0 Yes [id number] 10mg Take 1 Univers rine 10 mg 6-12 tablet by ity of tablet 00:00: mouth [place] 00 every 8 Medical (eight) Branch hours as needed for Muscle Spasms. cyclobenzap 2022-0 Yes [id number] 10mg Take 1 Univers rine 10 mg 6-12 tablet by ity of tablet 00:00: mouth [place] 00 every 8 Medical (eight) Branch hours as needed for Muscle Spasms. cyclobenzap 2022-0 Yes [id number] 10mg Take 1 Univers rine 10 mg 6-12 tablet by ity of tablet 00:00: mouth [place] 00 every 8 Medical (eight) Branch hours as needed for Muscle Spasms. cyclobenzap 2022-0 Yes [id number] 10mg Take 1 Univers rine 10 mg 6-12 tablet by ity of tablet 00:00: mouth [place] 00 every 8 Medical (eight) Branch hours as needed for Muscle Spasms. cyclobenzap 2022-0 Yes [id number] 10mg Take 1 Univers rine 10 mg 6-12 tablet by ity of tablet 00:00: mouth [place] 00 every 8 Medical (eight) Branch hours as needed for Muscle Spasms. cyclobenzap 2022-0 Yes [id number] 10mg Take 1 Univers rine 10 mg 6-12 tablet by ity of tablet 00:00: mouth [place] 00 every 8 Medical (eight) Branch hours as needed for Muscle Spasms. HYDROcodone 2022- No 1{tbl} 1 tablet, Univers -acetaminop -02 11- Oral, ity of hen (NORCO 15:15: 15:23 ONCE, 1 Yogesh as 5) 5-325 mg 00 :00 dose, On Medi jono tablet 1 Fri10/15/22 Bran h tablet at 1015, ADAMARIS HYDROcodone 2022- Yes [id number] .5{tbl} Take 0.5-1 Univers -acetaminop 5- 05-17 tablets by i ty of hen (NORCO) 00:00: 04:59 mouth [place] 10-325 mg 00 :00 every 6 Medical tablet (six) Branch hours as needed for Pain (scale 7-10) for up to 7 days. Indication s: acute pain dexamethaso 2022-0 2022- No [id number] 10mg Univers ne 4-25 04-25 ity of (DECADRON) 17:45: 16:46 [place] injection 00 :00 Medical 10 mg Branch dexamethaso 20222022- No [id number] 10mg 10 mg, Univers ne -01 10-25 Intramuscu ity of (DECADRON) 17:45: 16:46 lar, ONCE, [place] injection 00 :00 1 dose, On Medi jono 10 mg Tue Branch 10/01/22 at 1245, Routine predniSONE 2022- No [id number] Take 3 Univers 20 mg 4-25 05-17 tablets by ity of tablet 00:00: 04:59 mouth [place] 00 :00 daily for Medical 7 days, Branch THEN 2 tablets daily for 7 days, THEN 1 tablet daily for 7 days. predniSONE 2022- No Take 3 Univers 20 mg 4-25 05-17 tablets by ity of tablet 00:00: 04:59 mouth [place] 00 :00 daily for Medical 7 days, Branch THEN 2 tablets daily for 7 days, THEN 1 tablet daily for 7 days. hydrocortis 2022- No [id number] Apply to Univers one 2.5 % 10-01-06 area(s) 2 ity of cream 00:00: 04:59 (two) [place] 00 :00 times Medical daily for Branch 10 days. hydrOXYzine 2022- No [id number] 50mg Take 1 Univers 50 mg 4-25 05-03 tablet by ity of tablet 00:00: 04:59 mouth in [place] 00 :00 the Medical morning Branch and 1 tablet at noon and 1 tablet in the evening. Do all this for 7 days. triamcinolo 2022- No [id number] 40mg Univers ne 09-30-24 ity of acetonide 02:30: 01:30 [place] (KENALOG) 00 :00 Medical injection Branch 40 mg triamcinolo 2022- No [id number] 40mg 40 mg, Univers ne 09-30-24 Intramuscu ity of acetonide 02:30: 01:30 lar, ONCE, [place] (KENALOG) 00 :00 1 dose, On Medi jono injection Sun Branch 40 mg 09/29/22 at 2130, Routine triamcinolo Yes [id number] Apply to [facility] ne - area(s) 2 ity of acetonide 00:00: (two) [place] 0.1 % 00 times Medical ointment daily. Branch hydrOXYzine 2022-0 Yes 25mg Take 1 Univers 25 mg 4-23 tablet by ity of tablet 00:00: mouth [place] 00 every 6 Medical (six) Branch hours as needed for Itching. triamcinolo 2022-0 Yes Apply to Univers ne 4-23 area(s) 2 ity of acetonide 00:00: (two) [place] 0.1 % 00 times Medical ointment daily. Branch triamcinolo 2022-0 Yes Apply to Univers ne 4-23 area(s) 2 ity of acetonide 00:00: (two) [place] 0.1 % 00 times Medical ointment daily. Branch triamcinolo 2022-0 Yes Apply to Univers ne 4-23 area(s) 2 ity of acetonide 00:00: (two) [place] 0.1 % 00 times Medical ointment daily. Branch triamcinolo 2022-0 Yes Apply to Univers ne 4-23 area(s) 2 ity of acetonide 00:00: (two) [place] 0.1 % 00 times Medical ointment daily. Branch triamcinolo 2022-0 Yes Apply to Univers ne 4-23 area(s) 2 ity of acetonide 00:00: (two) [place] 0.1 % 00 times Medical ointment daily. Branch triamcinolo 2022-0 Yes Apply to Univers ne 4-23 area(s) 2 ity of acetonide 00:00: (two) [place] 0.1 % 00 times Medical ointment daily. Branch triamcinolo 2022-0 Yes Apply to Univers ne 4-23 area(s) 2 ity of acetonide 00:00: (two) [place] 0.1 % 00 times Medical ointment daily. Branch triamcinolo 2022-0 Yes Apply to Univers ne 4-23 area(s) 2 ity of acetonide 00:00: (two) [place] 0.1 % 00 times Medical ointment daily. Branch triamcinolo 2022-0 Yes Apply to Univers ne 4-23 area(s) 2 ity of acetonide 00:00: (two) [place] 0.1 % 00 times Medical ointment daily. Branch predniSONE 2022-0 2023- No [id number] Take 5 Univers 10 mg 4-23 05-03 tablets by ity of tablet 00:00: 04:59 mouth [place] 00 :00 daily for Medical 3 days, Branch THEN 4 tablets daily for 3 days, THEN 2 tablets daily for 3 days. predniSONE 2023-0 3- No [id number] Take 5 Univers 10 mg 4-23 04-25 tablets by ity of tablet 00:00: 00:00 mouth [place] 00 :00 daily for Medical 3 days, Branch THEN 4 tablets daily for 3 days, THEN 2 tablets daily for 3 days. hydrOXYzine 2023-0 3- No [id number] 25mg Take 1 Univers 25 mg 4-23 04-25 tablet by ity of tablet 00:00: 00:00 mouth [place] 00 :00 every 6 Medical (six) Branch hours as needed for Itching. MESALAMINE 2023-0 Yes 1000mg Take 1,000 Univers ORAL 1-26 mg by ity of 11:07: mouth [address] [place] [address] ([facility]) Medical times Branch daily. MESALAMINE 2023-0 Yes 1000mg Take 1,000 Univers ORAL 1-26 mg by ity of 11:07: mouth [address] [place] [address] (two) Medical times Branch daily. MESALAMINE 2023-0 Yes 1000mg Take 1,000 Univers ORAL 1-26 mg by ity of 11:07: mouth [address] [place] [address] (two) Medical times Branch daily. MESALAMINE 2023-0 Yes 1000mg Take 1,000 Univers ORAL 1-26 mg by ity of 11:07: mouth [address] [place] [address] (two) Medical times Branch daily. MESALAMINE 2023-0 Yes 1000mg Take 1,000 Univers ORAL 1-26 mg by ity of 11:07: mouth [address] [place] [address] (two) Medical times Branch daily. MESALAMINE 2023-0 Yes 1000mg Take 1,000 Univers ORAL 1-26 mg by ity of 11:07: mouth [address] [place] [address] (two) Medical times Branch daily. MESALAMINE 2023-0 Yes 1000mg Take 1,000 Univers ORAL 1-26 mg by ity of 11:07: mouth [address] [place] [address] (two) Medical times Branch daily. MESALAMINE 2023-0 Yes 1000mg Take 1,000 Univers ORAL 1-26 mg by ity of 11:07: mouth 2 [place] 04 (two) Medical times Branch daily. MESALAMINE 2023-0 Yes 1000mg Take 1,000 Univers ORAL 1-26 mg by ity of 11:07: mouth 2 [place] 04 (two) Medical times Branch daily. MESALAMINE 2023-0 Yes 1000mg Take 1,000 Univers ORAL 1-26 mg by ity of 11:07: mouth 2 [place] 04 (two) Medical times Branch daily. MESALAMINE 2023-0 Yes 1000mg Take 1,000 Univers ORAL 1-26 mg by ity of 11:07: mouth 2 [place] 04 (two) Medical times Branch daily. benzonatate 2023-0 Yes [id number] 100mg Take 1 Univers 100 mg 1-26 capsule by ity of capsule 00:00: mouth [place] 00 every 8 Medical (eight) Branch hours as needed for Cough. benzonatate 2023-0 Yes [id number] 100mg Take 1 [facility] 100 mg 1-26 capsule by [facility] of capsule 00:00: mouth [place] 00 every 8 Medical (eight) Branch hours as needed for Cough. benzonatate 2023-0 Yes [id number] 100mg Take 1 [facility] 100 mg 1-26 capsule by it[facility] of capsule 00:00: mouth [place] 00 every 8 Medical (eight) Branch hours as needed for Cough. benzonatate 2023-0 Yes [id number] 100mg Take 1 [facility] 100 mg 1-26 capsule by [facility] of capsule 00:00: mouth [place] 00 every 8 Medical (eight) Branch hours as needed for Cough. benzonatate 2023-0 Yes [id number] 100mg Take 1 [facility] 100 mg 1-26 capsule by [facility] of capsule 00:00: mouth [place] 00 every 8 Medical (eight) Branch hours as needed for Cough. benzonatate 2023-0 Yes [id number] 100mg Take 1 [facility] 100 mg 1-26 capsule by [facility]y of capsule 00:00: mouth [place] 00 every 8 Medical (eight) Branch hours as needed for Cough. benzonatate 2023-0 Yes [id number] 100mg Take 1 [facility] 100 mg 1-26 capsule by [facility] of capsule 00:00: mouth [place] 00 every 8 Medical (eight) Branch hours as needed for Cough. benzonatate 2023-0 Yes [id number] 100mg Take 1 [facility] 100 mg 1-26 capsule by [facility] of capsule 00:00: mouth [place] 00 every 8 Medical (eight) Branch hours as needed for Cough. benzonatate 2023-0 Yes [id number] 100mg Take 1 [facility] 100 mg 1-26 capsule by [facility] of capsule 00:00: mouth [place] 00 every 8 Medical (eight) Branch hours as needed for Cough. benzonatate 0 Yes [id number] 100mg Take 1 [facility] 100 mg 1-26 capsule by [facility]y of capsule 00:00: mouth [place] 00 every 8 Medical (eight) Branch hours as needed for Cough. benzonatate 0 Yes [id number] 100mg Take 1 [facility] 100 mg 1-26 capsule by [facility]y of capsule 00:00: mouth [place] 00 every 8 Medical (eight) Branch hours as needed for Cough. Methylpredn 2022- No [id number] 4mg Take 1 [facility] isolone 4 1-26 - tablet by ity of mg tablet 00:00: 05:59 mouth [place] 00 :00 every 12 Medical (twelve) Branch hours for 5 days. albuterol 2021-06 Yes [id number] 2{puff} Inhale 2 [facility] 90 1-29 Puffs ity of mcg/actuati 00:00: every 6 [facility] as on inhaler 00 (six) Medical hours as Branch needed for Wheezing or Shortness of Breath. albuterol 2021-06 Yes [id number] 2{puff} Inhale 2 [facility] 90 1-29 Puffs ity of mcg/actuati 00:00: every 6 [facility] as on inhaler 00 (six) Medical hours as Branch needed for Wheezing or Shortness of Breath. albuterol 2021-06 Yes [id number] 2{puff} Inhale 2 [facility] 90 1-29 Puffs ity of mcg/actuati 00:00: every 6 [place] as on inhaler 00 (six) Medical hours as Branch needed for Wheezing or Shortness of Breath. albuterol 2021-06 Yes [id number] 2{puff} Inhale 2 [facility] 90 1-29 Puffs ity of mcg/actuati 00:00: every 6 [place] as on inhaler 00 (six) Medical hours as Branch needed for Wheezing or Shortness of Breath. albuterol 2021-06 Yes [id number] 2{puff} Inhale 2 [facility] 90 1-29 Puffs ity of mcg/actuati 00:00: every 6 [place] as on inhaler 00 (six) Medical hours as Branch needed for Wheezing or Shortness of Breath. albuterol 2021-06 Yes [id number] 2{puff} Inhale 2 [facility] 90 1-29 Puffs ity of mcg/actuati 00:00: every 6 [place] as on inhaler 00 (six) Medical hours as Branch needed for Wheezing or Shortness of Breath. albuterol 2021-06 Yes [id number] 2{puff} Inhale 2 [facility] 90 1-29 Puffs ity of mcg/actuati 00:00: every 6 [facility] as on inhaler 00 (six) Medical hours as Branch needed for Wheezing or Shortness of Breath. albuterol 2021-06 Yes [id number] 2{puff} Inhale 2 [facility] 90 1-29 Puffs ity of mcg/actuati 00:00: every 6 [place] as on inhaler 00 (six) Medical hours as Branch needed for Wheezing or Shortness of Breath. albuterol 2021-06 Yes [id number] 2{puff} Inhale 2 [facility] 90 1-29 Puffs ity of mcg/actuati 00:00: every 6 [facility] as on inhaler 00 (six) Medical hours as Branch needed for Wheezing or Shortness of Breath. albuterol 2021-06 Yes [id number] 2{puff} Inhale 2 [facility] 90 1-29 Puffs ity of mcg/actuati 00:00: every 6 [facility] as on inhaler 00 (six) Medical hours as Branch needed for Wheezing or Shortness of Breath. albuterol 2021-06 Yes [id number] 2{puff} Inhale 2 [facility] 90 1-29 Puffs ity of mcg/actuati 00:00: every 6 [place] as on inhaler 00 (six) Medical hours as Branch needed for Wheezing or Shortness of Breath. albuterol 2021-06 Yes [id number] 2{puff} Inhale 2 [facility] 90 1-29 Puffs ity of mcg/actuati 00:00: every 6 [place] as on inhaler 00 (six) Medical hours as Branch needed for Wheezing or Shortness of Breath. albuterol 2021-06 Yes [id number] 2{puff} Inhale 2 [facility] 90 1-29 Puffs ity of mcg/actuati 00:00: every 6 [facility] as on inhaler 00 (six) Medical hours as Branch needed for Wheezing or Shortness of Breath. albuterol 2021-06 Yes [id number] 2{puff} Inhale 2 [facility] 90 1-29 Puffs ity of mcg/actuati 00:00: every 6 [place] as on inhaler 00 (six) Medical hours as Branch needed for Wheezing or Shortness of Breath. lisinopril- Yes 1{tbl} QD Take [address] hydroCHLORO 7-12 tablet by [facility] thiazide 17:34: mouth Medical (PRINZIDE,Z 56 daily. [place] [facility] 20-25 mg per tablet Yes 1{tbl} QD Take 1 [facility] by [facility] w/calcium-i 17:34: mouth Medic al beatris-folate 56 daily. [place] ( PLUS) 27 mg iron- 1 mg Tab lisinopril- Yes 1{tbl} QD Take [address] hydroCHLORO 7-12 tablet by [place] [facility] thiazide 17:34: mouth Medical (PRINZIDE,Z 56 daily. [facility]) 20-25 mg per tablet Yes 1{tbl} QD Take 1 [facility] by [facility] w/calcium-i 17:34: mouth Medic al beatris-folate 56 daily. [place] ( PLUS) 27 mg iron- 1 mg Tab lisinopril- Yes 1{tbl} QD Take [address] hydroCHLORO 7-12 tablet by [place] [facility] thiazide 17:34: mouth Medical (PRINZIDE,Z 56 daily. [place] [facility]) 20-25 mg per tablet Yes 1{tbl} QD Take 1 [facility] w/calcium-i 17:34: mouth Medic al beatris-folate 56 daily. [place] ( PLUS) 27 mg iron- 1 mg Tab lisinopril- Yes 1{tbl} QD Take [address] hydroCHLORO 7-12 tablet by [place] [facility] thiazide 17:34: mouth Medical (PRINZIDE,Z 56 daily. [place] [facility]) 20-25 mg per tablet Yes 1{tbl} QD Take 1 [facility] by [facility] w/calcium-i 17:34: mouth Medic al beatris-folate 56 daily. [facility] ( PLUS) 27 mg iron- 1 mg Tab pregabalin 2022-0 2023- No 150mg Q.5D Take [address] [facility] (LYRICA) 12-18- capsule [facility] 150 MG 00:00: 23:59 (150 mg Medical capsule 00 :00 total) by Center mouth 2 (two) times daily. Max Daily Amount: 300 mg pregabalin 2022-0 2023- No 150mg Q.5D Take [address] [facility] (LYRICA) 12-18- capsule [facility] 150 MG 00:00: 23:59 (150 mg Medical capsule 00 :00 total) by Center mouth 2 (two) times daily. Max Daily Amount: 300 mg pregabalin 2022-0 2023- No 150mg Q.5D Take [address] [facility] (LYRICA) 12-18- capsule [facility] 150 MG 00:00: 23:59 (150 mg Medical capsule 00 :00 total) by Center mouth 2 (two) times daily. Max Daily Amount: 300 mg pregabalin 2022-0 2023- No 150mg Q.5D Take [address] [facility] ([facility]RICA) 12-18- capsule [facility] 150 MG 00:00: 23:59 (150 mg Medical capsule 00 :00 total) by Center mouth 2 (two) times daily. Max Daily Amount: 300 mg pregabalin 2022-0 2023- No 150mg Q.5D Take [address] [facility] ([facility]RICA) 12-18 capsule [facility] 150 MG 00:00: 23:59 (150 mg Medical capsule 00 :00 total) by Center mouth 2 (two) times daily. Max Daily Amount: 300 mg pregabalin 2022-0 2023- No 150mg Q.5D Take [address] [facility] ([facility]ICA) 12-18- capsule [facility] 150 MG 00:00: 00:00 (150 mg Medical capsule 00 :00 total) by Center mouth 2 (two) times daily. Max Daily Amount: 300 mg pregabalin 2022-0 2023- No 150mg Q.5D Take [address] [facility] ([facility]ICA) 12-18- capsule [facility] 150 MG 00:00: 00:00 (150 mg Medical capsule 00 :00 total) by Center mouth 2 (two) times daily. Max Daily Amount: 300 mg pregabalin 2022-0 2023- No 150mg Q.5D Take [address] [facility] ([facility]RICA) 12-18 capsule [facility] 150 MG 00:00: 00:00 (150 mg Medical capsule 00 :00 total) by Center mouth 2 (two) times daily. Max Daily Amount: 300 mg oxyCODONE-a 2021- No 1{tbl} Take [address] cetaminophe 12-18 tablet by Audrey kes n 00:00: 23:59 mouth Medical (PERCOCET) 00 :00 every 8 Center 10-325 mg (eight) per tablet hours as needed for up to 10 days. Max Daily Amount: 3 tablets cyclobenzap 2021- No 10mg Q.[id number] Take [address] [facility] rine 12-18 [id number] tablet (10 Audrey kes (FLEXERIL) 00:00: 23:59 [...] Amount: 3 tablets cyclobenzap 2021- No 10mg Q.[id number] Take [address] [facility] rine 12-18 [id number] tablet (10 Audrey kes (FLEXERIL) 00:00: 23:59 3D mg total) M edical 10 MG 00 :00 by mouth 3 Center tablet (three) times daily for 10 days. oxyCODONE-a 2021- No 1{tbl} Take [address] cetaminophe -12-28 tablet by Audrey kes n 00:00: 23:59 mouth Medical (PERCOCET) 00 :00 every 8 Center 10-325 mg (eight) per tablet hours as needed for up to 10 days. Max Daily Amount: 3 tablets cyclobenzap 2021- No 10mg Q.[id number] Take [address] [facility] rine -12-28 [id number] tablet (10 Audrey kes (FLEXERIL) 00:00: 23:59 3D mg total) M edical 10 MG 00 :00 by mouth 3 Center tablet (three) times daily for 10 days. oxyCODONE-a 2021- No 1{tbl} Take [address] cetaminophe -12-28 tablet by Audrey kes n 00:00: 23:59 mouth Medical (PERCOCET) 00 :00 every 8 Center 10-325 mg (eight) per tablet hours as needed for up to 10 days. Max Daily Amount: 3 tablets cyclobenzap 2021- No 10mg Q.[id number] Take [address] [facility] rine -05 15- [id number] tablet (10 Audrey kes (FLEXERIL) 00:00: 23:59 3D mg total) M edical 10 MG 00 :00 by mouth 3 Center tablet (three) times daily for 10 days. oxyCODONE-a 2021- No 1{tbl} Take [address] cetaminophe -12-28 tablet by Audrey kes n 00:00: 23:59 mouth Medical (PERCOCET) 00 :00 every 8 Center 10-325 mg (eight) per tablet hours as needed for up to 10 days. Max Daily Amount: 3 tablets cyclobenzap 2021- No 10mg Q.[id number] Take [address] [facility] rine -05 15- [id number] tablet (10 Audrey kes (FLEXERIL) 00:00: 23:59 3D mg total) M edical 10 MG 00 :00 by mouth 3 Center tablet (three) times daily for 10 days. oxyCODONE-a 2021- No 1{tbl} Take [address] cetaminophe -12-28 tablet by Audrey kes n 00:00: 23:59 mouth Medical (PERCOCET) 00 :00 every 8 Center 10-325 mg (eight) per tablet hours as needed for up to 10 days. Max Daily Amount: 3 tablets cyclobenzap 2021- No 10mg Q.[id number] Take [address] [facility] rine 7-12 12-28 [id number] tablet (10 Audrey kes (FLEXERIL) 00:00: 23:59 [...] Amount: 3 tablets cyclobenzap 2021- No 10mg Q.[id number] Take [address] [facility] rine 12-18 [id number] tablet (10 Audrey kes (FLEXERIL) 00:00: 23:59 3D mg total) M edical 10 MG 00 :00 by mouth 3 Center tablet (three) times daily for 10 days. polyethylen 2021-2021- No 17g Q.5D Take [address] [facility] e glycol 7-12 07-15 by mouth 2 [facility] (GLYCOLAX) 00:00: 23:59 (two) Medic al 17 gram 00 :00 times Center packet daily for 3 days. polyethylen 2021-0 2021- No 17g Q.5D Take [address] [facility] e glycol 7-12 07-15 by mouth 2 [facility] (GLYCOLAX) 00:00: 23:59 (two) Medic al 17 gram 00 :00 times Center packet daily for 3 days. polyethylen 2021-0 2021- No 17g Q.5D Take [address] [facility] e glycol 7-12 07-15 by mouth 2 [facility] (GLYCOLAX) 00:00: 23:59 (two) Medic al 17 gram 00 :00 times Center packet daily for 3 days. polyethylen 2021-0 2021- No 17g Q.5D Take [address] [facility] e glycol 7-12 07-15 by mouth 2 [facility] (GLYCOLAX) 00:00: 23:59 (two) Medic al 17 gram 00 :00 times Center packet daily for 3 days. polyethylen 2021-0 2021- No 17g Q.5D Take [address] [facility] e glycol 7-12 07-15 by mouth 2 [facility] (GLYCOLAX) 00:00: 23:59 (two) Medic al 17 gram 00 :00 times Center packet daily for 3 days. dicyclomine 2021- No 20mg 20 mg, Uni vers (BENTYL) 11-06 Oral, ity of tablet 20 17:15: 16:25 ONCE, 1 [place] mg 00 :[place] dose, On Medical Tue Branch 11/06/21 at 1215, ADAMARIS maalox:diph 2021- No 15mL 15 mL, Uni vers enhydrAMINE 11-06 Oral, ity of :lidocaine 17:15: 16:25 ONCE, 1 [facility] as 2 % viscous 00 :00 dose, On Medi jono 1:1:1 Tue Branch ([facility] 11/06/[address] [facility] [place]) 1215, ADAMARIS oral suspension 15 mL morpHINE (4 No [...] jono mg Tue Branch 11/06/21 at 1130, ADAMARIS iopamidol 2021- No [id number] 50mL 50 mL, U nivers (ISOVUE 11-06 Intravenou ity o f 370-500 mL) 15:44: 15:45 s, ONCE, 1 [place] injection 00 :00 dose, On Medica l 50 mL Tue Branch 11/06/21 at 1100, Routine dicyclomine Yes [id number] 20mg Take 1 [facility] 20 mg - tablet by ity of tablet 00:00: mouth 4 [place] 00 (four) Medical times Branch daily. metoclopram 0 Yes [id number] 10mg Take 1 [facility] lilliam HCl 10 - tablet by ity of mg tablet 00:00: mouth [place] 00 every 6 Medical (six) Branch hours. pantoprazol 2-0 Yes [id number] 40mg Take 1 [facility] e 40 mg EC 5-31 tablet by ity of tablet 00:00: mouth [place] 00 daily. Medical Branch traMADoL 50 2021-0 Yes [id number] 50mg Take 1 Univ ers mg tablet 5-31 tablet by ity o f 00:00: mouth [place] 00 every 6 Medical (six) Branch hours as needed for Pain (scale 4-6). Indication s: acute pain dicyclomine 2-0 Yes [id number] 20mg Take 1 [facility] 20 mg 5-31 tablet by ity of tablet 00:00: mouth 4 [place] 00 (four) Medical times Branch daily. metoclopram 2-0 Yes [id number] 10mg Take 1 [facility] lilliam HCl 10 5-31 tablet by ity of mg tablet 00:00: mouth [place] 00 every 6 Medical (six) Branch hours. pantoprazol 2021-0 Yes [id number] 40mg Take 1 [facility] e 40 mg EC 5-31 tablet by ity of tablet 00:00: mouth [place] 00 daily. Medical Branch traMADoL 50 2021-0 Yes [id number] 50mg Take 1 [facility] ers mg tablet 5-31 tablet by ity o f 00:00: mouth [place] 00 every 6 Medical (six) Branch hours as needed for Pain (scale 4-6). Indication s: acute pain dicyclomine 2-0 Yes [id number] 20mg Take 1 [facility] 20 mg 5-31 tablet by ity of tablet 00:00: mouth 4 00 (four) Medical times Branch daily. metoclopram 2-0 Yes [id number] 10mg Take 1 [facility] lilliam HCl 10 5-31 tablet by ity of mg tablet 00:00: mouth [place] 00 every 6 Medical (six) Branch hours. pantoprazol 2-0 Yes [id number] 40mg Take 1 [facility] e 40 mg EC 5-31 tablet by ity of tablet 00:00: mouth [place] 00 daily. Medical Branch traMADoL 50 2-0 Yes [id number] 50mg Take 1 [facility] ers mg tablet 5-31 tablet by ity o f 00:00: mouth [place] 00 every 6 Medical (six) Branch hours as needed for Pain (scale 4-6). Indication s: acute pain dicyclomine 2-0 Yes [id number] 20mg Take 1 [facility] 20 mg 5-31 tablet by ity of tablet 00:00: mouth 4 [place] 00 (four) Medical times Branch daily. metoclopram 2-0 Yes [id number] 10mg Take 1 [facility] lilliam HCl 10 5-31 tablet by ity of mg tablet 00:00: mouth [place] 00 every 6 Medical (six) Branch hours. pantoprazol 2-0 Yes [id number] 40mg Take 1 [facility] e 40 mg EC 5-31 tablet by ity of tablet 00:00: mouth [place] 00 daily. Medical Branch traMADoL 50 2021-0 Yes [id number] 50mg Take 1 [facility] ers mg tablet 5-31 tablet by ity o f 00:00: mouth [place] 00 every 6 Medical (six) Branch hours as needed for Pain (scale 4-6). Indication s: acute pain dicyclomine 2-0 Yes [id number] 20mg Take 1 [facility] 20 mg 5-31 tablet by ity of tablet 00:00: mouth 4 [place] 00 (four) Medical times Branch daily. metoclopram 2-0 Yes [id number] 10mg Take 1 [facility] lilliam HCl 10 5-31 tablet by ity of mg tablet 00:00: mouth [place] 00 every 6 Medical (six) Branch hours. pantoprazol 2-0 Yes [id number] 40mg Take 1 [facility] e 40 mg EC 5-31 tablet by ity of tablet 00:00: mouth [place] 00 daily. Medical Branch traMADoL 50 2021-0 Yes [id number] 50mg Take 1 Univ ers mg tablet 5-31 tablet by ity o f 00:00: mouth [place] 00 every 6 Medical (six) Branch hours as needed for Pain (scale 4-6). Indication s: acute pain dicyclomine 2-0 Yes [id number] 20mg Take 1 [facility] 20 mg 5-31 tablet by ity of tablet 00:00: mouth 4 [place] 00 (four) Medical times Branch daily. metoclopram 2-0 Yes [id number] 10mg Take 1 [facility] lilliam HCl 10 5-31 tablet by ity of mg tablet 00:00: mouth [place] 00 every 6 Medical (six) Branch hours. pantoprazol 2022-0 Yes [id number] 40mg Take 1 [facility] e 40 mg EC 5-31 tablet by ity of tablet 00:00: mouth [place] 00 daily. Medical Branch traMADoL 50 2-0 Yes [id number] 50mg Take 1 [facility] ers mg tablet 5-31 tablet by ity o f 00:00: mouth [place] 00 every 6 Medical (six) Branch hours as needed for Pain (scale 4-6). Indication s: acute pain dicyclomine 2022-0 Yes [id number] 20mg Take 1 [facility] 20 mg 5-31 tablet by ity of tablet 00:00: mouth 4 [place] 00 (four) Medical times Branch daily. metoclopram 2-0 Yes [id number] 10mg Take 1 [facility] lilliam HCl 10 5-31 tablet by ity of mg tablet 00:00: mouth [place] 00 every 6 Medical (six) Branch hours. pantoprazol 2-0 Yes [id number] 40mg Take 1 [facility] e 40 mg EC 5-31 tablet by ity of tablet 00:00: mouth [place] 00 daily. Medical Branch traMADoL 50 2021-0 Yes [id number] 50mg Take 1 [facility] ers mg tablet 5-31 tablet by ity o f 00:00: mouth [place] 00 every 6 Medical (six) Branch hours as needed for Pain (scale 4-6). Indication s: acute pain dicyclomine 2-0 Yes [id number] 20mg Take 1 [facility] 20 mg 5-31 tablet by ity of tablet 00:00: mouth 4 [place] 00 (four) Medical times Branch daily. metoclopram 2-0 Yes [id number] 10mg Take 1 [facility] lilliam HCl 10 5-31 tablet by ity of mg tablet 00:00: mouth [place] 00 every 6 Medical (six) Branch hours. pantoprazol 2-0 Yes [id number] 40mg Take 1 [facility] e 40 mg EC 5-31 tablet by ity of tablet 00:00: mouth [place] 00 daily. Medical Branch traMADoL 50 2-0 Yes [id number] 50mg Take 1 [facility] ers mg tablet 5-31 tablet by ity o f 00:00: mouth [place] 00 every 6 Medical (six) Branch hours as needed for Pain (scale 4-6). Indication s: acute pain dicyclomine 2022-0 Yes [id number] 20mg Take 1 [facility] 20 mg 5-31 tablet by ity of tablet 00:00: mouth 4 [place] 00 (four) Medical times Branch daily. metoclopram 2022-0 Yes [id number] 10mg Take 1 [facility] lilliam HCl 10 5-31 tablet by ity of mg tablet 00:00: mouth [place] 00 every 6 Medical (six) Branch hours. pantoprazol 2-0 Yes [id number] 40mg Take 1 [facility] e 40 mg EC 5-31 tablet by ity of tablet 00:00: mouth [place] 00 daily. Medical Branch traMADoL 50 2021-0 Yes [id number] 50mg Take 1 [facility] ers mg tablet 5-31 tablet by ity o f 00:00: mouth [place] 00 every 6 Medical (six) Branch hours as needed for Pain (scale 4-6). Indication s: acute pain dicyclomine 2-0 Yes [id number] 20mg Take 1 [facility] 20 mg 5-31 tablet by ity of tablet 00:00: mouth 4 [place] 00 (four) Medical times Branch daily. metoclopram 2021-0 Yes [id number] 10mg Take 1 [facility] lilliam HCl 10 5-31 tablet by ity of mg tablet 00:00: mouth [place] 00 every 6 Medical (six) Branch hours. pantoprazol 2021-0 Yes [id number] 40mg Take 1 [facility] e 40 mg EC 5-31 tablet by ity of tablet 00:00: mouth [place] 00 daily. Medical Branch traMADoL 50 2021-0 Yes [id number] 50mg Take 1 Univ ers mg tablet 5-31 tablet by ity o f 00:00: mouth [place] 00 every 6 Medical (six) Branch hours as needed for Pain (scale 4-6). Indication s: acute pain dicyclomine 2021-0 Yes [id number] 20mg Take 1 [facility] 20 mg 5-31 tablet by ity of tablet 00:00: mouth 4 [place] 00 (four) Medical times Branch daily. metoclopram 2021-0 Yes [id number] 10mg Take 1 [facility] lilliam HCl 10 5-31 tablet by ity of mg tablet 00:00: mouth [place] 00 every 6 Medical (six) Branch hours. pantoprazol 2021-0 Yes [id number] 40mg Take 1 [facility] e 40 mg EC 5-31 tablet by ity of tablet 00:00: mouth [place] 00 daily. Medical Branch traMADoL 50 2-0 Yes [id number] 50mg Take 1 Univ ers mg tablet 5-31 tablet by ity o f 00:00: mouth [place] 00 every 6 Medical (six) Branch hours as needed for Pain (scale 4-6). Indication s: acute pain dicyclomine 2-0 Yes [id number] 20mg Take 1 [facility] 20 mg 5-31 tablet by ity of tablet 00:00: mouth 4 [place] 00 (four) Medical times Branch daily. metoclopram 2-0 Yes [id number] 10mg Take 1 [facility] lilliam HCl 10 5-31 tablet by ity of mg tablet 00:00: mouth [place] 00 every 6 Medical (six) Branch hours. pantoprazol 2-0 Yes [id number] 40mg Take 1 [facility] e 40 mg EC 5-31 tablet by ity of tablet 00:00: mouth [place] 00 daily. Medical Branch traMADoL 50 2021-0 Yes [id number] 50mg Take 1 Univ ers mg tablet 5-31 tablet by ity o f 00:00: mouth [place] 00 every 6 Medical (six) Branch hours as needed for Pain (scale 4-6). Indication s: acute pain dicyclomine 2-0 Yes [id number] 20mg Take 1 [facility] 20 mg 5-31 tablet by ity of tablet 00:00: mouth 4 [place] 00 (four) Medical times Branch daily. metoclopram 2-0 Yes [id number] 10mg Take 1 [facility] lilliam HCl 10 5-31 tablet by ity of mg tablet 00:00: mouth [place] 00 every 6 Medical (six) Branch hours. pantoprazol 2-0 Yes [id number] 40mg Take 1 [facility] e 40 mg EC 5-31 tablet by ity of tablet 00:00: mouth [place] 00 daily. Medical Branch traMADoL 50 2021-0 Yes [id number] 50mg Take 1 Univ ers mg tablet 5-31 tablet by ity o f 00:00: mouth [place] 00 every 6 Medical (six) Branch hours as needed for Pain (scale 4-6). Indication s: acute pain dicyclomine 2-0 Yes [id number] 20mg Take 1 [facility] 20 mg 5-31 tablet by ity of tablet 00:00: mouth 4 [place] 00 (four) Medical times Branch daily. metoclopram 2-0 Yes [id number] 10mg Take 1 [facility] lilliam HCl 10 5-31 tablet by ity of mg tablet 00:00: mouth [place] 00 every 6 Medical (six) Branch hours. pantoprazol 2022-0 Yes [id number] 40mg Take 1 [facility] e 40 mg EC 5-31 tablet by ity of tablet 00:00: mouth [place] 00 daily. Medical Branch traMADoL 50 2-0 Yes [id number] 50mg Take 1 Univ ers mg tablet 5-31 tablet by ity o f 00:00: mouth [place] 00 every 6 Medical (six) Branch hours as needed for Pain (scale 4-6). Indication s: acute pain dicyclomine Yes [id number] 20mg Take 1 [facility] 20 mg 5-31 tablet by ity of tablet 00:00: mouth 4 [place] 00 (four) Medical times Branch daily. metoclopram 0 Yes [id number] 10mg Take 1 [facility] lilliam HCl 10 5-31 tablet by ity of mg tablet 00:00: mouth [place] 00 every 6 Medical (six) Branch hours. pantoprazol Yes [id number] 40mg Take 1 [facility] e 40 mg EC 5-31 tablet by ity of tablet 00:00: mouth [place] 00 daily. Medical Branch traMADoL 50 Yes [id number] 50mg Take 1 Univ ers mg tablet 5-31 tablet by ity o f 00:00: mouth [place] 00 every 6 Medical (six) Branch hours as needed for Pain (scale 4-6). Indication s: acute pain amoxicillin 2021- No [id number] 875mg Take 1 [facility] 875 mg 5-10 [...] days. Indication s: cough predniSONE 2021- No [id number] 40mg Take 2 [facility] 20 mg 5-10 05-16 tablets by ity of tablet 00:00: 04:59 mouth [place] 00 :00 daily for Medical 5 days. Branch dicyclomine 2020-06 Yes [id number] 20mg Take 1 [facility] 20 mg 2-26 tablet by ity of tablet 00:00: mouth 4 [place] 00 (four) Medical times Branch daily. bromphenira 2020-06 Yes [id number] 5mL Take 5 mL Univers mine-pseudo 2-26 by mouth 3 it y of ephedrine-D 00:00: (three) Yogesh as M (BROMFED 00 times Medical DM) 2-30-10 daily as Bran ch mg/5 mL needed for syrup Cough. dicyclomine 2020-06 Yes [id number] 20mg Take 1 [facility] 20 mg 2-26 tablet by ity of tablet 00:00: mouth 4 ([facility]) Medical times Branch daily. bromphenira 2020-06 Yes [id number] 5mL Take 5 mL [facility] mine-pseudo 2-26 by mouth 3 it y of ephedrine-D 00:00: (three) Yogesh as M (BROMFED times Medical DM) 2-30-10 daily as Bran ch mg/5 mL needed for syrup Cough. dicyclomine 2020-06 Yes [id number] 20mg Take 1 [facility] 20 mg 2-26 tablet by ity of tablet 00:00: mouth 4 [place] ([facility]) Medical times [place] daily. bromphenira 2020-06 Yes [id number] 5mL Take 5 mL Univers mine-pseudo 2-26 by mouth 3 it y of ephedrine-D 00:00: (three) [facility] 2-30-10 daily as Bran ch mg/5 mL needed for syrup Cough. dicyclomine 2020-06 Yes [id number] 20mg Take 1 [facility] 20 mg 2-26 tablet by ity of tablet 00:00: mouth 4 [place] ([facility]) Medical times [place] daily. bromphenira 2020-06 Yes [id number] 5mL Take 5 mL [facility] mine-pseudo 2-26 by mouth 3 it y of ephedrine-D 00:00: (three) Yogesh as M (BROMFED times Medical DM) 2-30-10 daily as Bran ch mg/5 mL needed for syrup Cough. dicyclomine 2020-06 Yes [id number] 20mg Take 1 [facility] 20 mg 2-26 tablet by ity of tablet 00:00: mouth 4 ([facility]) Medical times [place] daily. bromphenira 2020-06 Yes [id number] 5mL Take 5 mL [facility] mine-pseudo 2-26 by mouth 3 it y of ephedrine-D 00:00: (three) Yogesh as M (BROMFED 00 times Medical DM) 2-30-10 daily as Bran ch mg/5 mL needed for syrup Cough. dicyclomine 2020-06 Yes [id number] 20mg Take 1 [facility] 20 mg 2-26 tablet by ity of tablet 00:00: mouth 4 [place] ([facility]) Medical times Branch daily. bromphenira 2020-06 Yes [id number] 5mL Take 5 mL [facility] mine-pseudo 2-26 by mouth 3 it y of ephedrine-D 00:00: (three) Yogesh as M (BROMFED 00 times Medical DM) 2-30-10 daily as Bran ch mg/5 mL needed for syrup Cough. dicyclomine 2020-06 Yes [id number] 20mg Take 1 [facility] 20 mg 2-26 tablet by ity of tablet 00:00: mouth 4 [place] ([facility]) Medical times Branch daily. bromphenira 2020-06 Yes [id number] 5mL Take 5 mL [facility] mine-pseudo 2-26 by mouth 3 it y of ephedrine-D 00:00: (three) Yogesh as M (BROMFED times Medical DM) 2-30-10 daily as [place] ch mg/5 mL needed for syrup Cough. dicyclomine 2020-06 Yes [id number] 20mg Take 1 [facility] 20 mg 2-26 tablet by ity of tablet 00:00: mouth [place] [address] ([facility]) Medical times [place] daily. bromphenira 2020-06 Yes [id number] 5mL Take 5 mL [facility] mine-pseudo 2-26 by mouth 3 it y of ephedrine-D 00:00: (three) Yogesh as M (BROMFED 00 times Medical DM) 2-30-10 daily as [place] ch mg/5 mL needed for syrup Cough. dicyclomine 2020-06 Yes [id number] 20mg Take 1 [facility] 20 mg 2-26 tablet by ity of tablet 00:00: mouth [place] ([facility]) Medical times Branch daily. bromphenira 2020-06 Yes [id number] 5mL Take 5 mL [facility] mine-pseudo 2-26 by mouth 3 it y of ephedrine-D 00:00: (three) [place]ogesh as M (BROMFED 00 times Medical DM) 2-30-10 daily as [place] ch mg/5 mL needed for syrup Cough. dicyclomine 2020-06 Yes [id number] 20mg Take 1 [facility] 20 mg 2-26 tablet by ity of tablet 00:00: mouth 4 [place] [address] ([facility]) Medical times Branch daily. bromphenira 2021-1 Yes [id number] 5mL Take 5 mL [facility] mine-pseudo 2-26 by mouth 3 it y of ephedrine-D 00:00: (three) [place]ogesh as M (BROMFED 00 times Medical DM) 2-30-10 daily as Bran ch mg/5 mL needed for syrup Cough. dicyclomine 2020-06 Yes [id number] 20mg Take 1 [facility] 20 mg 2-26 tablet by ity of tablet 00:00: mouth 4 [place] ([facility]) Medical times Branch daily. bromphenira 2020-06 Yes [id number] 5mL Take 5 mL [facility] mine-pseudo 2-26 by mouth 3 it y of ephedrine-D 00:00: (three) [place] as M (BROMFED times Medical DM) 2-30-10 daily as [place] ch mg/5 mL needed for syrup Cough. dicyclomine 2020-06 Yes [id number] 20mg Take 1 [facility] 20 mg 2-26 tablet by ity of tablet 00:00: mouth 4 [place] ([facility]) Medical times [place] daily. bromphenira 2020-06 Yes [id number] 5mL Take 5 mL [facility] mine-pseudo 2-26 by mouth 3 it y of ephedrine-D 00:00: (three) [place]ogesh as M (BROMFED times Medical DM) 2-30-10 daily as [place] ch mg/5 mL needed for syrup Cough. dicyclomine 2020-06 Yes [id number] 20mg Take 1 [facility] 20 mg 2-26 tablet by ity of tablet 00:00: mouth 4 [place] [address] ([facility]) Medical times Branch daily. bromphenira 2020-06 Yes [id number] 5mL Take 5 mL [facility] mine-pseudo 2-26 by mouth 3 it y of ephedrine-D 00:00: (three) [place] as M (BROMFED 00 times Medical DM) 2-30-10 daily as Bran ch mg/5 mL needed for syrup Cough. dicyclomine 2020-06 Yes [id number] 20mg Take 1 [facility] 20 mg 2-26 tablet by ity of tablet 00:00: mouth 4 [place] ([facility]) Medical times Branch daily. bromphenira 2020-06 Yes [id number] 5mL Take 5 mL [facility] mine-pseudo 2-26 by mouth 3 it y of ephedrine-D 00:00: (three) [place] as M (BROMFED 00 times Medical DM) 2-30-10 daily as Bran ch mg/5 mL needed for syrup Cough. dicyclomine 2020-06 Yes [id number] 20mg Take 1 [facility] 20 mg 2-26 tablet by ity of tablet 00:00: mouth 4 [place] ([facility]) Medical times Branch daily. bromphenira 2020-06 Yes [id number] 5mL Take 5 mL [facility] mine-pseudo 2-26 by mouth 3 it y of ephedrine-D 00:00: (three) [place] as M (BROMFED times Medical DM) 2-30-10 daily as Bran ch mg/5 mL needed for syrup Cough. dicyclomine 2020-06 Yes [id number] 20mg Take 1 [facility] 20 mg 2-26 tablet by ity of tablet 00:00: mouth 4 ([facility]) Medical times [place] daily. bromphenira 2020-06 Yes [id number] 5mL Take 5 mL [facility] mine-pseudo 2-26 by mouth 3 it y of ephedrine-D 00:00: (three) Yogesh as M ([facility] times Medical DM) 2-30-10 daily as Bran ch mg/5 mL needed for syrup Cough. dicyclomine 2020-06 Yes [id number] 20mg Take 1 [facility] 20 mg 2-26 tablet by ity of tablet 00:00: mouth 4 [place] ([facility]) Medical times [place] daily. bromphenira 2020-06 Yes [id number] 5mL Take 5 mL [facility] mine-pseudo 2-26 by mouth 3 it y of ephedrine-D 00:00: (three) Yogesh as M (BROMFED times Medical DM) 2-30-10 daily as [place] ch mg/5 mL needed for syrup Cough. dicyclomine 2020-06 Yes [id number] 20mg Take 1 [facility] 20 mg 2-26 tablet by ity of tablet 00:00: mouth 4 [place] ([facility]) Medical times Branch daily. bromphenira 2020-06 Yes [id number] 5mL Take 5 mL [facility] mine-pseudo 2-26 by mouth 3 it y of ephedrine-D 00:00: (three) [place]og[place] as M (BROMFED times Medical DM) 2-30-10 daily as Bran ch mg/5 mL needed for syrup Cough. dicyclomine 2020-06 Yes [id number] 20mg Take 1 [facility] 20 mg 2-26 tablet by ity of tablet 00:00: mouth 4 [place] 00 (four) Medical times Branch daily. bromphenira 2020-06 Yes [id number] 5mL Take 5 mL [facility] mine-pseudo 2-26 by mouth 3 it y of ephedrine-D 00:00: (three) Yogesh as M (BROMFED 00 times Medical DM) 2-30-10 daily as Bran ch mg/5 mL needed for syrup Cough. bromphenira 2020-06 Yes [id number] 5mL Take 5 mL [facility] mine-pseudo 1-29 by mouth 4 it y of ephedrine-D 00:00: (four[place] ([facility] times Medical DM) 2-30-10 daily as Bran ch mg/5 mL needed for syrup Congestion /Allergies . azelastine 2020-06 Yes [id number] 1{spray Use 1 [facility] 137 mcg 1-29 } [place] in ity of (0.1 %) 00:00: each [place] nasal spray 00 nostril 2 Med ical (two) Branch times daily. Use in each nostril as directed fluticasone 2020-06 Yes [id number] 1{spray Use 1 [facility] propionate 1-29 } [place] in ity o f 50 00:00: each [place] mcg/actuati 00 nostril Medic al on nasal daily. Branch spray guaiFENesin 2020-06 Yes [id number] 400mg Take 1 [facility] 400 mg 1-29 tablet by ity of tablet 00:00: mouth [place] 00 every 4 Medical (four) Branch hours as needed for Cough. benzonatate 2020-06 Yes [id number] 200mg Take 2 [facility] 100 mg 1-29 capsules [facility]y of capsule 00:00: [place] mouth 2 [place] (two[place] Medical times Branch daily as needed for Cough. bromphenira 2020-06 Yes [id number] 5mL Take 5 mL [facility] mine-pseudo 1-29 by mouth 4 it y of ephedrine-D 00:00: (four[place] ([facility]OMF[facility] 00 times Medical DM) 2-30-10 daily as Bran ch mg/5 mL needed for syrup Congestion /Allergies . azelastine 2020-06 Yes [id number] 1{spray Use 1 [facility] 137 mcg 1-29 } [place] in ity of (0.1 %) 00:00: each [place] nasal spray 00 nostril 2 Med ical (two) Branch times daily. Use in each nostril as directed fluticasone 2020-06 Yes [id number] 1{spray Use 1 [facility] propionate 1-29 } [place] in ity o f 50 00:00: each [place] mcg/actuati 00 nostril Medic al on nasal daily. Branch spray guaiFENesin 2020-06 Yes [id number] 400mg Take 1 [facility] 400 mg 1-29 tablet by ity of tablet 00:00: mouth [place] 00 every 4 Medical (four) Branch hours as needed for Cough. benzonatate 2020-06 Yes [id number] 200mg Take 2 [facility] 100 mg 1-29 capsules [facility]y of capsule 00:00: by mouth 2 [place] (two[place] Medical times Branch daily as needed for Cough. bromphenira 2020-06 Yes [id number] 5mL Take 5 mL [facility] mine-pseudo 1-29 by mouth 4 it y of ephedrine-D 00:00: (four) [place] ([facility]OMF[facility] 00 times Medical DM) 2-30-10 daily as Bran ch mg/5 mL needed for syrup Congestion /Allergies . azelastine 2020-06 Yes [id number] 1{spray Use 1 [facility] 137 mcg 1-29 } [place] in ity of (0.1 %) 00:00: each [place] nasal spray 00 nostril 2 Med ical (two) Branch times daily. Use in each nostril as directed fluticasone 2020-06 Yes [id number] 1{spray Use 1 [facility] propionate 1-29 } [place] in ity o f 50 00:00: each [place] mcg/actuati 00 nostril Medic al on nasal daily. Branch spray guaiFENesin 2020-06 Yes [id number] 400mg Take 1 [facility] 400 mg 1-29 tablet by ity of tablet 00:00: mouth [place] 00 every 4 Medical (four) Branch hours as needed for Cough. benzonatate 2020-06 Yes [id number] 200mg Take 2 [facility] 100 mg 1-29 capsules ity of capsule 00:00: by mouth 2 [place] (two[place] Medical times Branch daily as needed for Cough. bromphenira 2020-06 Yes [id number] 5mL Take 5 mL [facility] mine-pseudo 1-29 by mouth 4 it y of ephedrine-D 00:00: (four) [place] (BROMFED 00 times Medical DM) 2-30-10 daily as Bran ch mg/5 mL needed for syrup Congestion /Allergies . azelastine 2020-06 Yes [id number] 1{spray Use 1 [facility] 137 mcg 1-29 } [place] in ity of (0.1 %) 00:00: each [place] nasal spray 00 nostril 2 Med ical (two) Branch times daily. Use in each nostril as directed fluticasone 2020-06 Yes [id number] 1{spray Use 1 [facility] propionate 1-29 } [place] in ity o f 50 00:00: each [place] mcg/actuati 00 nostril Medic al on nasal daily. Branch spray guaiFENesin 2020-06 Yes [id number] 400mg Take 1 [facility] 400 mg 1-29 tablet by ity of tablet 00:00: mouth [place] 00 every 4 Medical (four) Branch hours as needed for Cough. benzonatate 2020-06 Yes [id number] 200mg Take 2 [facility] 100 mg 1-29 capsules ity of capsule 00:00: by mouth 2 [place] (two) Medical times Branch daily as needed for Cough. bromphenira 2020-06 Yes [id number] 5mL Take 5 mL [facility] mine-pseudo 1-29 by mouth 4 it y of ephedrine-D 00:00: (four) [place] M (BROMFED 00 times Medical DM) 2-30-10 daily as Bran ch mg/5 mL needed for syrup Congestion /Allergies . azelastine 2020-06 Yes [id number] 1{spray Use 1 [facility] 137 mcg 1-29 } [place] in ity of (0.1 %) 00:00: each [place] nasal spray 00 nostril 2 Med ical (two) Branch times daily. Use in each nostril as directed fluticasone 2020-06 Yes [id number] 1{spray Use 1 [facility] propionate 1-29 } [place] in ity o f 50 00:00: each [place] mcg/actuati 00 nostril Medic al on nasal daily. Branch spray guaiFENesin 2020-06 Yes [id number] 400mg Take 1 [facility] 400 mg 1-29 tablet by ity of tablet 00:00: mouth [place] 00 every 4 Medical (four) Branch hours as needed for Cough. benzonatate 2020-06 Yes [id number] 200mg Take 2 [facility] 100 mg 1-29 capsules ity of capsule 00:00: by mouth 2 [place] (two) Medical times Branch daily as needed for Cough. bromphenira 2020-06 Yes [id number] 5mL Take 5 mL [facility] mine-pseudo 1-29 by mouth 4 it y of ephedrine-D 00:00: (four) [place] (BROMFED 00 times Medical DM) 2-30-10 daily as Bran ch mg/5 mL needed for syrup Congestion /Allergies . azelastine 2020-06 Yes [id number] 1{spray Use 1 [facility] 137 mcg 1-29 } [place] in ity of (0.1 %) 00:00: each [place] nasal spray 00 nostril 2 Med ical (two) Branch times daily. Use in each nostril as directed fluticasone 2020-06 Yes [id number] 1{spray Use 1 [facility] propionate 1-29 } [place] in ity o f 50 00:00: each [place] mcg/actuati 00 nostril Medic al on nasal daily. Branch spray guaiFENesin 2020-06 Yes [id number] 400mg Take 1 [facility] 400 mg 1-29 tablet by ity of tablet 00:00: mouth [place] 00 every 4 Medical (four) Branch hours as needed for Cough. benzonatate 2020-06 Yes [id number] 200mg Take 2 [facility] 100 mg 1-29 capsules ity of capsule 00:00: by mouth 2 [place] (two) Medical times Branch daily as needed for Cough. bromphenira 2020-06 Yes [id number] 5mL Take 5 mL [facility] mine-pseudo 1-29 by mouth 4 it y of ephedrine-D 00:00: (four) [place] M (BROMFED 00 times Medical DM) 2-30-10 daily as Bran ch mg/5 mL needed for syrup Congestion /Allergies . azelastine 2020-06 Yes [id number] 1{spray Use 1 [facility] 137 mcg 1-29 } [place] in ity of (0.1 %) 00:00: each [place] nasal spray 00 nostril 2 Med ical (two) Branch times daily. Use in each nostril as directed fluticasone 2020-06 Yes [id number] 1{spray Use 1 [facility] propionate 1-29 } [place] in ity o f 50 00:00: each [place] mcg/actuati 00 nostril Medic al on nasal daily. Branch spray guaiFENesin 2020-06 Yes [id number] 400mg Take 1 [facility] 400 mg 1-29 tablet by ity of tablet 00:00: mouth [place] 00 every 4 Medical (four) Branch hours as needed for Cough. benzonatate 2020-06 Yes [id number] 200mg Take 2 [facility] 100 mg 1-29 capsules ity of capsule 00:00: by mouth 2 [place] (two) Medical times Branch daily as needed for Cough. bromphenira 2020-06 Yes [id number] 5mL Take 5 mL [facility] mine-pseudo 1-29 by mouth 4 it y of ephedrine-D 00:00: (four) [place] M (BROMFED 00 times Medical DM) 2-30-10 daily as Bran ch mg/5 mL needed for syrup Congestion /Allergies . azelastine 2020-06 Yes [id number] 1{spray Use 1 [facility] 137 mcg 1-29 } [place] in ity of (0.1 %) 00:00: each [place] nasal spray 00 nostril 2 Med ical (two) Branch times daily. Use in each nostril as directed benzonatate 2020-06 Yes [id number] 200mg Take 2 [facility] 100 mg 1-29 capsules ity of capsule 00:00: by mouth 2 [place] 00 (two) Medical times Branch daily as needed for Cough. bromphenira 2020-06 Yes [id number] 5mL Take 5 mL [facility] mine-pseudo 1-29 by mouth 4 it y of ephedrine-D 00:00: (four) [place] (BROMFED 00 times Medical DM) 2-30-10 daily as Bran ch mg/5 mL needed for syrup Congestion /Allergies . azelastine 2020-06 Yes [id number] 1{spray Use 1 [facility] 137 mcg 1-29 } [place] in ity of (0.1 %) 00:00: each [place] nasal spray 00 nostril 2 Med ical (two) Branch times daily. Use in each nostril as directed fluticasone 2020-06 Yes [id number] 1{spray Use 1 [facility] propionate 1-29 } [place] in ity o f 50 00:00: each [place] mcg/actuati 00 nostril Medic al on nasal daily. Branch spray guaiFENesin 2020-06 Yes [id number] 400mg Take 1 [facility] 400 mg 1-29 tablet by ity of tablet 00:00: mouth [place] 00 every 4 Medical (four) Branch hours as needed for Cough. fluticasone 2020-06 Yes [id number] 1{spray Use 1 [facility] propionate 1-29 } [place] in ity o f 50 00:00: each [place] mcg/actuati 00 nostril Medic al on nasal daily. Branch spray guaiFENesin 2020-06 Yes [id number] 400mg Take 1 [facility] 400 mg 1-29 tablet by ity of tablet 00:00: mouth [place] 00 every 4 Medical (four) Branch hours as needed for Cough. benzonatate 2020-06 Yes [id number] 200mg Take 2 [facility] 100 mg 1-29 capsules ity of capsule 00:00: by mouth 2 [place] (two) Medical times Branch daily as needed for Cough. bromphenira 2020-06 Yes [id number] 5mL Take 5 mL [facility] mine-pseudo 1-29 by mouth 4 it y of ephedrine-D 00:00: (four) [place] M (BROMFED 00 times Medical DM) 2-30-10 daily as Bran ch mg/5 mL needed for syrup Congestion /Allergies . azelastine 2020-06 Yes [id number] 1{spray Use 1 [facility] 137 mcg 1-29 } [place] in ity of (0.1 %) 00:00: each [place] nasal spray 00 nostril 2 Med ical (two) Branch times daily. Use in each nostril as directed fluticasone 2020-06 Yes [id number] 1{spray Use 1 [facility] propionate 1-29 } [place] in ity o f 50 00:00: each [place] mcg/actuati 00 nostril Medic al on nasal daily. Branch spray guaiFENesin 2020-06 Yes [id number] 400mg Take 1 [facility] 400 mg 1-29 tablet by ity of tablet 00:00: mouth [place] 00 every 4 Medical (four) Branch hours as needed for Cough. benzonatate 2020-06 Yes [id number] 200mg Take 2 [facility] 100 mg 1-29 capsules ity of capsule 00:00: by mouth 2 [place] 00 (two) Medical times Branch daily as needed for Cough. bromphenira 2020-06 Yes [id number] 5mL Take 5 mL [facility] mine-pseudo 1-29 by mouth 4 it y of ephedrine-D 00:00: (four) [place] M (BROMFED 00 times Medical DM) 2-30-10 daily as Bran ch mg/5 mL needed for syrup Congestion /Allergies . azelastine 2020-06 Yes [id number] 1{spray Use 1 [facility] 137 mcg 1-29 } [place] in ity of (0.1 %) 00:00: each [place] nasal spray 00 nostril 2 Med ical (two) Branch times daily. Use in each nostril as directed fluticasone 2020-06 Yes [id number] 1{spray Use 1 [facility] propionate 1-29 } [place] in ity o f 50 00:00: each [place] mcg/actuati 00 nostril Medic al on nasal daily. Branch spray guaiFENesin 2020-06 Yes [id number] 400mg Take 1 [facility] 400 mg 1-29 tablet by ity of tablet 00:00: mouth [place] 00 every 4 Medical (four) Branch hours as needed for Cough. benzonatate 2020-06 Yes [id number] 200mg Take 2 [facility] 100 mg 1-29 capsules ity of capsule 00:00: by mouth 2 [place] 00 (two) Medical times Branch daily as needed for Cough. bromphenira 2020-06 Yes [id number] 5mL Take 5 mL [facility] mine-pseudo 1-29 by mouth 4 it y of ephedrine-D 00:00: (four) [place] M (BROMFED 00 times Medical DM) 2-30-10 daily as Bran ch mg/5 mL needed for syrup Congestion /Allergies . azelastine 2020-06 Yes [id number] 1{spray Use 1 [facility] 137 mcg 1-29 } [place] in ity of (0.1 %) 00:00: each [place] nasal spray 00 nostril 2 Med ical (two) Branch times daily. Use in each nostril as directed fluticasone 2020-06 Yes [id number] 1{spray Use 1 [facility] propionate 1-29 } [place] in ity o f 50 00:00: each [place] mcg/actuati 00 nostril Medic al on nasal daily. Branch spray guaiFENesin 2020-06 Yes [id number] 400mg Take 1 [facility] 400 mg 1-29 tablet by ity of tablet 00:00: mouth [place] 00 every 4 Medical (four) Branch hours as needed for Cough. benzonatate 2020-06 Yes [id number] 200mg Take 2 [facility] 100 mg 1-29 capsules ity of capsule 00:00: by mouth 2 [place] 00 (two) Medical times Branch daily as needed for Cough. bromphenira 2020-06 Yes [id number] 5mL Take 5 mL [facility] mine-pseudo 1-29 by mouth 4 it y of ephedrine-D 00:00: (four) [place] M (BROMFED 00 times Medical DM) 2-30-10 daily as Bran ch mg/5 mL needed for syrup Congestion /Allergies . azelastine 2020-06 Yes [id number] 1{spray Use 1 [facility] 137 mcg 1-29 } [place] in ity of (0.1 %) 00:00: each [place] nasal spray 00 nostril 2 Med ical (two) Branch times daily. Use in each nostril as directed fluticasone 2020-06 Yes [id number] 1{spray Use 1 [facility] propionate 1-29 } [place] in ity o f 50 00:00: each [place] mcg/actuati 00 nostril Medic al on nasal daily. Branch spray guaiFENesin 2020-06 Yes [id number] 400mg Take 1 [facility] 400 mg 1-29 tablet by ity of tablet 00:00: mouth [place] 00 every 4 Medical (four) Branch hours as needed for Cough. benzonatate 2020-06 Yes [id number] 200mg Take 2 [facility] 100 mg 1-29 capsules ity of capsule 00:00: by mouth 2 [place] 00 (two) Medical times Branch daily as needed for Cough. bromphenira 2020-06 Yes [id number] 5mL Take 5 mL [facility] mine-pseudo 1-29 by mouth 4 it y of ephedrine-D 00:00: (four) [place] M (BROMFED 00 times Medical DM) 2-30-10 daily as Bran ch mg/5 mL needed for syrup Congestion /Allergies . azelastine 2020-06 Yes [id number] 1{spray Use 1 [facility] 137 mcg 1-29 } [place] in ity of (0.1 %) 00:00: each [place] nasal spray 00 nostril 2 Med ical (two) Branch times daily. Use in each nostril as directed fluticasone 2020-06 Yes [id number] 1{spray Use 1 [facility] propionate 1-29 } [place] in ity o f 50 00:00: each [place] mcg/actuati 00 nostril Medic al on nasal daily. Branch spray guaiFENesin 2020-06 Yes [id number] 400mg Take 1 [facility] 400 mg 1-29 tablet by ity of tablet 00:00: mouth [place] 00 every 4 Medical (four) Branch hours as needed for Cough. benzonatate 2020-06 Yes [id number] 200mg Take 2 [facility] 100 mg 1-29 capsules ity of capsule 00:00: by mouth 2 [place] 00 (two) Medical times Branch daily as needed for Cough. bromphenira 2020-06 Yes [id number] 5mL Take 5 mL [facility] mine-pseudo 1-29 by mouth 4 it y of ephedrine-D 00:00: (four) [place] M (BROMFED 00 times Medical DM) 2-30-10 daily as Bran ch mg/5 mL needed for syrup Congestion /Allergies . azelastine 2020-06 Yes [id number] 1{spray Use 1 [facility] 137 mcg 1-29 } [place] in ity of (0.1 %) 00:00: each [place] nasal spray 00 nostril 2 Med ical (two) Branch times daily. Use in each nostril as directed fluticasone 2020-06 Yes [id number] 1{spray Use 1 [facility] propionate 1-29 } [place] in ity o f 50 00:00: each [place] mcg/actuati 00 nostril Medic al on nasal daily. Branch spray guaiFENesin 2020-06 Yes [id number] 400mg Take 1 [facility] 400 mg 1-29 tablet by ity of tablet 00:00: mouth [place] 00 every 4 Medical (four) Branch hours as needed for Cough. benzonatate 2020-06 Yes [id number] 200mg Take 2 [facility] 100 mg 1-29 capsules ity of capsule 00:00: by mouth 2 [place] 00 (two) Medical times Branch daily as needed for Cough. bromphenira 2020-06 Yes [id number] 5mL Take 5 mL [facility] mine-pseudo 1-29 by mouth 4 it y of ephedrine-D 00:00: (four) [place] M (BROMFED 00 times Medical DM) 2-30-10 daily as Bran ch mg/5 mL needed for syrup Congestion /Allergies . azelastine 2020-06 Yes [id number] 1{spray Use 1 [facility] 137 mcg 1-29 } [place] in ity of (0.1 %) 00:00: each [place] nasal spray 00 nostril 2 Med ical (two) Branch times daily. Use in each nostril as directed fluticasone 2020-06 Yes [id number] 1{spray Use 1 [facility] propionate 1-29 } [place] in ity o f 50 00:00: each [place] mcg/actuati 00 nostril Medic al on nasal daily. Branch spray guaiFENesin 2020-06 Yes [id number] 400mg Take 1 [facility] 400 mg 1-29 tablet by ity of tablet 00:00: mouth [place] 00 every 4 Medical (four) Branch hours as needed for Cough. benzonatate 2020-06 Yes [id number] 200mg Take 2 [facility] 100 mg 1-29 capsules ity of capsule 00:00: by mouth 2 [place] 00 (two) Medical times Branch daily as needed for Cough. bromphenira 2020-06 Yes [id number] 5mL Take 5 mL [facility] mine-pseudo 1-29 by mouth 4 it y of ephedrine-D 00:00: (four) [place] M (BROMFED 00 times Medical DM) 2-30-10 daily as Bran ch mg/5 mL needed for syrup Congestion /Allergies . benzonatate 2020-06 Yes [id number] 200mg Take 2 [facility] 100 mg 1-29 capsules ity of capsule 00:00: by mouth 2 [place] 00 (two) Medical times Branch daily as needed for Cough. azelastine 2020-06 Yes [id number] 1{spray Use 1 [facility] 137 mcg 1-29 } [place] in ity of (0.1 %) 00:00: each [place] nasal spray 00 nostril 2 Med ical (two) Branch times daily. Use in each nostril as directed fluticasone 2020-06 Yes [id number] 1{spray Use 1 [facility] propionate 1-29 } [place] in ity o f 50 00:00: each [place] mcg/actuati 00 nostril Medic al on nasal daily. Branch spray guaiFENesin 2020-06 Yes [id number] 400mg Take 1 [facility] 400 mg 1-29 tablet by ity of tablet 00:00: mouth [place] 00 every 4 Medical (four) Branch hours as needed for Cough. bromphenira 2020-06 Yes [id number] 5mL Take 5 mL [facility] mine-pseudo 1-29 by mouth 4 it y of ephedrine-D 00:00: (four) [place] M (BROMFED 00 times Medical DM) 2-30-10 daily as Bran ch mg/5 mL needed for syrup Congestion /Allergies . azelastine 2020-06 Yes [id number] 1{spray Use 1 [facility] 137 mcg 1-29 } [place] in ity of (0.1 %) 00:00: each [place] nasal spray 00 nostril 2 Med ical (two) Branch times daily. Use in each nostril as directed fluticasone 2020-06 Yes [id number] 1{spray Use 1 [facility] propionate 1-29 } [place] in ity o f 50 00:00: each [place] mcg/actuati 00 nostril Medic al on nasal daily. Branch spray benzonatate 2020-06 Yes [id number] 200mg Take 2 [facility] 100 mg 1-29 capsules ity of capsule 00:00: by mouth 2 [place] 00 (two) Medical times Branch daily as needed for Cough. bromphenira 2020-06 Yes [id number] 5mL Take 5 mL [facility] mine-pseudo 1-29 by mouth 4 it y of ephedrine-D 00:00: (four) [place] M (BROMFED 00 times Medical DM) 2-30-10 daily as Bran ch mg/5 mL needed for syrup Congestion /Allergies . azelastine 2020-06 Yes [id number] 1{spray Use 1 [facility] 137 mcg 1-29 } [place] in ity of (0.1 %) 00:00: each [place] nasal spray 00 nostril 2 Med ical (two) Branch times daily. Use in each nostril as directed fluticasone 2020-06 Yes [id number] 1{spray Use 1 [facility] propionate 1-29 } [place] in ity o f 50 00:00: each [place] mcg/actuati 00 nostril Medic al on nasal daily. Branch spray guaiFENesin 2020-06 Yes [id number] 400mg Take 1 [facility] 400 mg 1-29 tablet by ity of tablet 00:00: mouth [place] 00 every 4 Medical (four) Branch hours as needed for Cough. guaiFENesin 2020-06 Yes [id number] 400mg Take 1 [facility] 400 mg 1-29 tablet by ity of tablet 00:00: mouth [place] 00 every 4 Medical (four) Branch hours as needed for Cough. benzonatate 2020-06 Yes [id number] 200mg Take 2 [facility] 100 mg 1-29 capsules ity of capsule 00:00: by mouth 2 [place] 00 (two) Medical times Branch daily as needed for Cough. bromphenira 2020-06 Yes [id number] 5mL Take 5 mL [facility] mine-pseudo 1-29 by mouth 4 it y of ephedrine-D 00:00: (four) [place] M (BROMFED 00 times Medical DM) 2-30-10 daily as Bran ch mg/5 mL needed for syrup Congestion /Allergies . azelastine 2020-06 Yes [id number] 1{spray Use 1 [facility] 137 mcg 1-29 } [place] in ity of (0.1 %) 00:00: each [place] nasal spray 00 nostril 2 Med ical (two) Branch times daily. Use in each nostril as directed fluticasone 2020-06 Yes [id number] 1{spray Use 1 [facility] propionate 1-29 } [place] in ity o f 50 00:00: each [place] mcg/actuati 00 nostril Medic al on nasal daily. Branch spray guaiFENesin 2020-06 Yes [id number] 400mg Take 1 [facility] 400 mg 1-29 tablet by ity of tablet 00:00: mouth [place] 00 every 4 Medical (four) Branch hours as needed for Cough. benzonatate 2020-06 Yes [id number] 200mg Take 2 [facility] 100 mg 1-29 [...] Name Observation Time Observation Value Comments Source HEIGHT 2022-12-12 172.7 cm 11:30:00 WEIGHT 2022-12-12 86.1 kg 11:30:00 HEIGHT 2022-12-11 174 cm 08:48:00 WEIGHT 2022-12-11 86.183 kg 08:48:00 HEIGHT 2022-12-12 172.7 cm 11:30:00 WEIGHT 2022-12-12 86.1 kg 11:30:00 HEIGHT 2022-12-11 174 cm 08:48:00 WEIGHT 2022-12-11 86.183 kg 08:48:00 HEIGHT 2022-12-12 172.7 cm 11:30:00 WEIGHT 2022-12-12 86.1 kg 11:30:00 HEIGHT 2022-12-11 174 cm 08:48:00 WEIGHT 2022-12-11 86.183 kg 08:48:00 Systolic blood 2022-12-04 113 mm[Hg] University of pressure 18:59:00 [place] [facility] Diastolic blood 2022-12-04 70 mm[Hg] University o f pressure 18:59:00 [facility] Heart rate 2022-12-04 81 /min University of 18:59:00 [facility] Body temperature 2022-12-04 36.61 Lynne University of 18:59:00 [facility] Respiratory rate 2022-12-04 15 /min University of 18:59:00 [facility] Body height 2022-12-04 174 cm University of 18:59:00 [facility] [place] [facility] Body weight 2022-12-04 86.229 kg University of 18:59:00 [facility] [place] [facility] BMI 2022-12-04 28.48 kg/m2 University of 18:59:00 [facility] [place] [facility] Oxygen saturation 2022-12-04 98 /min University of in Arterial blood 18:59:00 [place] [facility] by Pulse oximetry Branch Respiratory rate 2022-12-04 18 /min University of 00:21:14 [facility] [place] [facility] Oxygen saturation 2022-12-04 100 /min University of in Arterial blood 00:21:14 [facility] jono by Pulse oximetry Branch Systolic blood 2022-12-04 131 mm[Hg] University of pressure 00:21:14 [facility] [place] [facility] Diastolic blood 2022-12-04 77 mm[Hg] University o f pressure 00:21:14 [facility] Heart rate 2022-12-04 81 /min University of 00:21:14 [facility] [place] [facility] Body height 2022-12-03 172.7 cm University of 22:22:00 [facility] [place] [facility] Body weight 2022-12-03 83.915 kg University of 22:22:00 [facility] [place] [facility] BMI 2022-12-03 28.13 kg/m2 University of 22:22:00 [facility] [place] [facility] Systolic blood 2022-11-18 153 mm[Hg] University of pressure 20:19:00 [facility] Diastolic blood 2022-11-18 64 mm[Hg] University o f pressure 20:19:00 [facility] Heart rate 2022-11-18 118 /min University of 20:19:00 [facility] [place] [facility] Body temperature 2022-11-18 37.22 Lynne University of 20:19:00 [facility] Respiratory rate 2022-11-18 20 /min University of 20:19:00 [facility] [place] [facility] Body weight 2022-11-18 86.183 kg University of 20:19:00 [facility] BMI 2022-11-18 28.06 kg/m2 University of 20:19:00 [facility] Oxygen saturation 2022-11-18 100 /min [facility] of in Arterial blood 20:19:00 [place] [facility] by Pulse oximetry Branch Systolic blood 2022-10-15 125 mm[Hg] [facility] pressure 17:27:00 [facility] Diastolic blood 2022-10-15 82 mm[Hg] University o f pressure 17:27:00 [facility] [place] [facility] Heart rate 2022-10-15 79 /min University of 17:27:00 [facility] Respiratory rate 2022-10-15 16 /min University of 17::00 [facility] [place] [facility] Oxygen saturation 2022-10-15 99 /min University of in Arterial blood 17:27:00 [facility] jono by Pulse oximetry Branch Body temperature 2022-10-15 36.72 Lynne University of 15:04:00 [facility] [place] [facility] Body height 2022-10-15 175.3 cm University of 15:04:00 [facility] [place] [facility] Body weight 2022-10-15 86.183 kg University of 15:04:00 [facility] [place] [facility] BMI 2022-10-15 28.06 kg/m2 University of 15:04:00 [facility] [place] [facility] Systolic blood 2022-10-01 169 mm[Hg] University of pressure 16:23:00 [facility] [place] [facility] Diastolic blood 2022-10-01 83 mm[Hg] University o f pressure 16:23:00 [facility] [place] [facility] Heart rate 2022-10-01 78 /min University of 16:23:00 [facility] [place] [facility] Body temperature 2022-10-01 36.83 Lynne University of 16:23:00 [facility] Respiratory rate 2022-10-01 16 /min University of 16:23:00 [facility] [place] [facility] Body weight 2022-10-01 88.905 kg University of 16:23:00 [facility] [place] [facility] BMI 2022-10-01 29.80 kg/m2 University of 16:23:00 [facility] [place] [facility] Oxygen saturation 2022-10-01 100 /min University of in Arterial blood 16:23:00 [place] [facility] by Pulse oximetry Branch Systolic blood 2022-09-30 120 mm[Hg] [facility] pressure 01:08:00 [facility] Diastolic blood 2022-09-30 81 mm[Hg] University o f pressure 01:08:00 [facility] [place] [facility] Heart rate 2022-09-30 95 /min University of :08:00 [facility] Body temperature 2022-09-30 36.28 Lynne University of :08:00 [facility] Respiratory rate 2022-09-30 20 /min University of :08:00 [facility] Body height 2022-09-30 172.7 cm University of :08:00 [place] [facility] Body weight 2022-09-30 89.268 kg University of :08:00 [facility] [place] [facility] BMI 2022-09-30 29.92 kg/m2 University of :08:00 [facility] [place] [facility] Oxygen saturation 2022-09-30 97 /min University of in Arterial blood 01:08:00 [place] [facility]i [facility]ono by Pulse oximetry Branch Systolic blood 2022-07-04 136 mm[Hg] [facility] pressure 17:03:00 [facility] Diastolic blood 2022-07-04 80 mm[Hg] University o f pressure 17:03:00 [facility] Heart rate 2022-07-04 66 /min University of 17:00:00 [facility] Body temperature 2022-07-04 36.94 Lynne University of 17:00:00 [facility] Respiratory rate 2022-07-04 16 /min University of 17:00:00 [facility] Body height 2022-07-04 174 cm University of 17:00:00 [facility] [place] [facility] Body weight 2022-07-04 88.451 kg University of 17:00:00 [facility] [place] [facility] BMI 2022-07-04 29.22 kg/m2 University of 17:00:00 [facility] Oxygen saturation 2022-07-04 100 /min University of in Arterial blood 17:00:00 [place] [facility]i jono by Pulse oximetry Branch Systolic blood 2022-05-07 170 mm[Hg] [facility] pressure 16:32:00 [place] [facility] Diastolic blood 2022-05-07 104 mm[Hg] University o f pressure 16:32:00 [place] [facility] Heart rate 2022-05-07 87 /min University of 16:29:00 [facility] Body temperature 2022-05-07 37.11 Lynne University of 16:29:00 [place] [facility] Respiratory rate 2022-05-07 17 /min University of 16:29:00 [facility] [place] [facility] Body height 2022-05-07 174 cm University of 16:29:00 [facility] [place] [facility] Body weight 2022-05-07 90.81 kg University of 16:29:00 [facility] [place] [facility] BMI 2022-05-07 30.00 kg/m2 University of 16:29:00 [facility] [place] [facility] Oxygen saturation 2022-05-07 100 /min University of in Arterial blood 16:29:00 [facility] by Pulse oximetry Branch Systolic blood 2021-11-06 144 mm[Hg] University of pressure 17:00:00 [facility] Diastolic blood 2021-11-06 90 mm[Hg] University o f pressure 17:00:00 [facility] [place] [facility] Heart rate 2021-11-06 72 /min University of 17:00:00 [facility] [place] [facility] Respiratory rate 2021-11-06 16 /min University of 17:00:00 [facility] [place] [facility] Oxygen saturation 2021-11-06 98 /min [facility] in Arterial blood 17:00:00 [facility] by Pulse oximetry Branch Body temperature 2021-11-06 36 Lynne University of 14:24:00 [facility] [place] [facility] Body height 2021-11-06 172.7 cm University of 14:24:00 [facility] [place] [facility] Body weight 2021-11-06 88.451 kg University of 14:24:00 [facility] [place] [facility] BMI 2021-11-06 29.65 kg/m2 University of 14:24:00 [facility] [place] [facility] Systolic blood 2021-10-16 148 mm[Hg] [facility] pressure 20:21:00 [facility] [place] [facility] Diastolic blood 2021-10-16 92 mm[Hg] University o f pressure 20:21:00 [facility] [place] [facility] Heart rate 2021-10-16 83 /min University of 20:18:00 [facility] [place] [facility] Body temperature 2021-10-16 37.39 Lynne University of 20:18:00 [facility] [place] [facility] Respiratory rate 2021-10-16 18 /min University of 20:18:00 [facility] [place] [facility] Body height 2021-10-16 175.3 cm University of 20:18:00 [facility] [place] [facility] Body weight 2021-10-16 89.982 kg University of 20:18:00 [facility] [place] [facility] BMI 2021-10-16 29.29 kg/m2 University of 20:18:00 [facility] [place] [facility] Oxygen saturation 2021-10-16 100 /min University of in Arterial blood 20:18:00 [facility] by Pulse oximetry Branch Systolic blood 2021-06-03 125 mm[Hg] [facility] of pressure 20:08:00 [facility] Diastolic blood 2021-06-03 78 mm[Hg] University o f pressure 20:08:00 [facility] Heart rate 2021-06-03 79 /min University of 20:08:00 [facility] Body temperature 2021-06-03 36.78 Lynne University of 20:08:00 [facility] Respiratory rate 2021-06-03 18 /min University of 20:08:00 [facility] [place] [facility] Body height 2021-06-03 172.7 cm University of 20:08:00 [facility] [place] [facility] Body weight 2021-06-03 92.987 kg University of 20:08:00 [facility] [place] [facility] BMI 2021-06-03 31.17 kg/m2 University of 20:08:00 [facility] [place] [facility] Oxygen saturation 2021-06-03 98 /min [facility] in Arterial blood 20:08:00 [facility] by Pulse oximetry Branch Systolic blood 2021-05-08 169 mm[Hg] [facility] pressure 01:03:00 [facility] Diastolic blood 2021-05-08 96 mm[Hg] University o f pressure 01:03:00 [facility] Heart rate 2021-05-08 71 /min University of 01:02:00 [facility] Respiratory rate 2021-05-08 20 /min University of 01:02:00 [facility] Body height 2021-05-08 172.7 cm University of 01:02:00 [facility] Body weight 2021-05-08 97.659 kg University of 01:02:00 [facility] BMI 2021-05-08 32.74 kg/m2 University of 01:02:00 [facility] Oxygen saturation 2021-05-08 99 /min [facility] in Arterial blood 01:02:00 [facility] jono by Pulse oximetry Branch Respiratory rate 2022-12-17 16 /min [facility] 09:48:00 [facility] Oxygen saturation 2022-12-17 100 /min [facility] in Arterial blood 09:48:00 Medical nter by Pulse oximetry Systolic blood 2022-12-17 135 mm[Hg] [facility] pressure 07[facility]35:00 [facility] Diastolic blood 2022-12-17 80 mm[Hg] [facility] pressure 07:35:00 [facility] Heart rate 2022-12-17 77 /min [facility] 07:35:00 [facility] Body temperature 2022-12-[address] [facility] 07:35:00 [facility] Body height 2022-12-[address] [facility] 11[facility]30:00 [facility] Center Body weight 2022-12-[address] [facility] 11:30:00 [facility] Center BMI 2022-12-12 28.86 kg/m2 [facility] 11:30:00 [facility] Center Body height 2022-12-[address] [facility] 08:48:00 [facility] Center Body weight 2022-12-[address] [facility] 08:48:00 [facility] Center BMI 2022-12-11 28.47 kg/m2 [facility] 08:48:00 [facility] Center Systolic blood 2022-12-06 157 mm[Hg] [facility] pressure 11:12: [facility] Center Diastolic blood 2022-12-06 86 mm[Hg] [facility] pressure 11:12:00 [facility] Center Heart rate 2022-12-06 67 /min [facility] 11:12:00 [facility] Center Body temperature 2022-12-[address] [facility] 11:12:00 [facility] Center Respiratory rate 2022-12-06 16 /min [facility] 11:12:00 [facility] Center Oxygen saturation 2022-12-06 99 /min [facility] in Arterial blood 11:12:00 Medical Ce nter by Pulse oximetry Systolic blood 2021-12-18 147 mm[Hg] [facility] pressure 11:20:00 Medical Center Diastolic blood 2021-12-18 69 mm[Hg] [facility] pressure 11:20:00 [facility] Center Heart rate 2021-12-18 72 /min [facility] 11:20:00 [facility] Center Body temperature 2021-12-[address] [facility] 11:20:00 [facility] Center Respiratory rate 2021-12-18 18 /min [facility] 11:20:00 [facility] Center Oxygen saturation 2021-12-18 97 /min [facility] in Arterial blood 11:20:00 Medical Ce nter by Pulse oximetry Body height 2021-12-11 175 cm [facility] 05:01:00 [facility] Center Body weight 2021-12-11 88.451 kg patient stated [facility] 05:01:00 weight [facility] BMI 2021-12-11 28.88 kg/m2 [facility] 05:01:00 Medical Center Procedures Procedure Date / Time Performing Clinician Source Performed CBC W/PLT COUNT & AUTO 2022-12-14 10:17:00 Paco Castañeda [facility] DIFFERENTIAL [place] BASIC METABOLIC PANEL 2022-12-14 10:17:00 Paco Castañeda [facility] CBC W/PLT COUNT & AUTO 2022-12-14 10:17:00 Paco Castañeda [facility] XR LUMBAR SPINE 2 OR 3 2022-12-13 17:08:00 [facility] [place] [facility] MET[facility]OLIC PANEL 2022-12-13 03:24:00 [facility] [place] [facility] (HEMOGRAM ONLY) 2022-12-13 03:24:00 [facility] [place] FLUORO NON-SPECIFIC UP 2022-12-12 15:00:00 Dion Dow [facility] TO 1 HOUR Center LAMINECTOMY, SPINE, 2022-12-12 14:03:00 Dion Dow [facility] LUMBAR, WITH FUSION Center LAMINECTOMY, SPINE, 2022-12-12 14:03:00 Dion Dow [facility] LUMBAR, ANTERIOR Center APPROACH, WITH FUSION INSERTION, HARDWARE, 2022-12-12 14:03:00 Dion Dow [facility] SPINAL Center INSERTION, INTERVERTEBRAL 2022-12-12 14:03:00 Dion Dow [facility] BIOMEDICAL DEVICE, SPINE, Center LUMBAR PROCEDURE, ALLOGRAFT, FOR 2022-12-12 14:03:00 Dion Dow [facility] SPINE SURGERY Center PROCEDURE, USING 2022-12-12 14:03:00 Dion Dow [facility] FRAMELESS STEREOTAXY Center PROCEDURE W/ C-ARM 2022-12-12 14:03:00 Dino Dow [facility] LAMINECTOMY, SPINE, 2022-12-12 13:00:00 Dion Dow [facility] LUMBAR, WITH FUSION Center LAMINECTOMY, SPINE, 2022-12-12 13:00:00 Dion Dow [facility] LUMBAR, ANTERIOR Center APPROACH, WITH FUSION INSERTION, HARDWARE, 2022-12-12 13:00:00 Dion Dow [facility] SPINAL Center INSERTION, INTERVERTEBRAL 2022-12-12 13:00:00 DepewDion [facility] BIOMEDICAL DEVICE, SPINE, Center LUMBAR PROCEDURE, ALLOGRAFT, FOR 2022-12-12 13:00:00 Dion Dow [facility] SPINE SURGERY Center PROCEDURE, USING 2022-12-12 13:00:00 Victor MDion [facility] FRAMELESS STEREOTAXY [place] PROCEDURE W/ C-ARM 2022-12-12 13:00:00 DepewDion [facility] POCT , URINE 2022-12-12 11:57:00 Darian Roche [facility] XR CHEST 2 VIEWS 2022-12-06 12:04:00 Alysa López [facility] URINALYSIS W/ REFLEX 2022-12-06 10:49:00 [facility] Center SCREEN, URINE 2022-12-06 10:49:00 Katarzyna Delarosa [facility] CBC W/PLT COUNT & AUTO 2022-12-06 10:49:00 Katarzyna Delarosa [facility] DIFFERENTIAL [place] BASIC METABOLIC PANEL 2022-12-06 10:49:00 Katarzyna Delarosa [facility] PT/APTT 2022-12-06 10:49:00 [facility] AND [facility]CREEN, 2022-12-06 10:49:00 Katarzyna Delarosa [facility] AUTOMATED Center CBC W/PLT COUNT & AUTO 2022-12-06 10:49:00 Katarzyna Delarosa Zoey AGUILAR [facility] ECG 12-LEAD 2022-12-06 10:46:01 Unknown, Hl7 Doctor [facility] ECG 12-LEAD 2022-12-06 10:46:01 Katarzyna Delarosa BRIJESH [facility] ECG 12-LEAD 2022-12-06 10:46:01 Unknown, Hl7 Doctor [facility] POCT URINALYSIS 2022-12-04 19:00:00 Maxim[facility] [place] [facility] [place] BASIC METABOLIC PANEL 2022-12-03 22:32:[address] [facility] (NA, K, CL, CO2, GLUCOSE, Medica l Branch BUN, CREATININE, CA) CBC WITH DIFF 2022-12-03 22:32:00 Nelson [facility] CONSENT/REFUSAL FOR 2022-12-03 22:10:29 Doctor [facility] DIAGNOSIS AND TREATMENT [address] [facility] ASSIGNMENT OF BENEFITS 2022-11-22 17:43:28 Doctor Unassigned, [facility] Name Medical Branch MR LUMBAR SPINE WO 2022-11-21 18:57:03 Gabriela Jarrett [facility] CONTRAST Medical [place] NOTICE OF PRIVACY 2022-11-21 18:09:01 Doctor Unassigned, [facility] PRACTICES [address] [facility] CONSENT/REFUSAL FOR 2022-11-21 18:08:42 Doctor [facility]usc [facility] DIAGNOSIS AND TREATMENT [address] [facility] ASSIGNMENT OF BENEFITS 2022-11-21 18:08:19 Doctor Unassigned, [facility] [address] [facility] CT LUMBAR SPINE WO 2022-11-18 21:38:53 Maggie Low [facility] CONTRAST Medical Branch POCT TEST 2022-11-18 20:55:00 Maggie Low [facility] COMP. METABOLIC PANEL 2022-11-18 20:52:00 Maggie Low [facility] ([id number]) Medical Branch CBC WITH DIFF 2022-11-18 20:52:00 [facility] 2022-11-18 20:52:[address] [facility] ASSIGNMENT OF BENEFITS 2022-11-18 20:27:59 Doctor Unassigned, [facility] [address] [facility] CONSENT/REFUSAL FOR 2022-11-18 20:12:54 Doctor Unassigned, [facility] DIAGNOSIS AND TREATMENT [address] [facility] [place] XR FOOT <3 VW RIGHT 2022-10-15 15:32:21 Maik Hadley [facility] CONSENT/REFUSAL FOR 2022-10-15 14:59:01 Doctor Unassigned, [facility] DIAGNOSIS AND TREATMENT [address] [facility] POCT SARS-COV-2 ANTIGEN 2022-07-04 17:21:00 Tristan Trejo [facility] ([facility] POCT MOLECULAR FLU 2022-07-04 17:10:00 Unknown, Attending [facility] POCT MOLECULAR FLU 2022-05-07 17:11:00 Unknown, Attending [facility] XR CHEST 2 VW 2022-05-07 17:10:00 Mathews [facility] COVID-19 (MOLECULAR 2022-05-07 17:08:00 Mayur [facility] TESTING [facility] NUCLEIC ACID AMPLIFICATION) LAB ONLY COVID 2022-05-07 17:08:00 Mathews [facility] INTERPRETATION [facility] POCT MOLECULAR STREP 2022-05-07 17:07:00 Unknown, Attending [facility] CBC W/PLT COUNT & AUTO 2021-12-18 04:25:00 Bear Vyas CH I [facility] DIFFERENTIAL [facility] BASIC METABOLIC PANEL 2021-12-18 04:25:00 Bear Vyas [facility] CBC W/PLT COUNT & AUTO 2021-12-18 04:25:00 Bear Vyas CH I [facility] DIFFERENTIAL [facility] [place] FLUOR[place] NON-SPECIFIC UP 2021-12-17 11:43:00 Dion Dow CH I [facility] TO 1 HOUR Center LAMINECTOMY, SPINE, 2021-12-17 10:33:00 Dion Dow [facility] LUMBAR, WITH DISCECTOMY Center PROCEDURE W/ C-ARM 2021-12-17 10:33:00 Dion Dow [facility] CBC W/PLT COUNT & AUTO 2021-12-17 04:26:00 Bear Vyas [facility]ABOLIC PANEL 2021-12-17 04:26:00 Bear Vyas [facility] CBC W/PLT COUNT & AUTO 2021-12-17 04:26:00 [facility] DIFFERENTIAL [place] SARS-COV2/RT-PCR ([facility] & 2021-12-16 14:50:00 Valentin [facility] REF LABS) Center SCREEN, URINE 2021-12-16 11:49:00 Mario Rice [facility] Center ABORH, MANUAL 2021-12-16 04:51:00 Rebeca Malave [facility] PT/APTT 2021-12-16 04:02:00 Hanson [facility] CBC W/PLT COUNT & AUTO 2021-12-16 04:02:00 Bear Vyas [facility] METABOLIC PANEL 2021-12-16 04:02:00 Bear Vyas [facility] TYPE AND SCREEN, 2021-12-16 04:02:00 Valentin [facility] AUTOMATED Center CBC W/PLT COUNT & AUTO 2021-12-16 04:02:00 [facility] DIFFERENTIAL [place] ECG 12-LEAD 2021-12-15 15:19:20 Valentin [facility] XR CHEST 1 VIEW PORTABLE 2021-12-15 14:06:00 Valentin [facility] / BEDSIDE Center BASIC METABOLIC PANEL 2021-12-12 04:08:00 Farzaneh Cartwright [facility] HEPATIC FUNCTION PANEL 2021-12-12 04:08:00 Farzaneh Cartwright [facility] CBC W/PLT COUNT & AUTO 2021-12-12 04:08:00 Farzaneh Cartwright [facility] DIFFERENTIAL Center CBC W/PLT COUNT & AUTO 2021-12-12 04:08:00 Farzaneh Cartwright [facility] DIFFERENTIAL Center SARS-COV2/RT-PCR ([facility] & 2021-12-11 13:54:00 Bear Vyas [facility] REF LABS) [facility] MR LUMBAR SPINE WITHOUT 2021-12-11 08:45:00 Lakhwinder [place] CH I [facility] IV CONTRAST [facility] ABDOMEN PELVIS W 2021-11-06 15:49:20 Aye Mejia [facility] CONTRAST Medical Branch POCT TEST 2021-11-06 15:17:00 Aye Mejia [facility] LIPASE 2021-11-06 15:11:[address] [facility] COMP. METABOLIC PANEL 2021-11-06 15:11:00 Aye Mejia [facility] ([id number]) Medical [place] CBC WITH DIFF 2021-11-06 15:11:00 [facility] URINALYSIS 2021-11-06 14:37:00 Canones Aye [facility] NOTICE OF PRIVACY 2021-11-06 14:26:59 Doctor Unaandre, [facility] PRACTICES [address] [facility] CONSENT/REFUSAL FOR 2021-11-06 14:19:53 Doctor Unasstata, [facility] DIAGNOSIS AND TREATMENT [address] [facility] POCT MOLECULAR STREP 2021-10-16 20:24:00 Tristan Trejo [facility] [place] ASSIGNMENT OF BENEFITS 2021-10-16 20:13:33 Doctor Unasstata, [facility] Name Medical Branch [id number] 2019-10-06 00:00:00 [facility] [id number] 2019-10-06 00:00:00 [facility] Plan of Care Planned Activity Planned Date Details Comments Source Future Scheduled 2023-12-[address] [facility] 00:00:00 Counseling and Screening Med ical Center (12+) [code = Tobacco Cessation Counseling and Screening (12+)] Future Scheduled 2023-12-[address] [facility] 00:00:00 Counseling and Screening Med ical Center (12+) [code = Tobacco Cessation Counseling and Screening (12+)] Future Scheduled 2023-12-[address] [facility] 00:00:00 Counseling and Screening Med ical Center (12+) [code = Tobacco Cessation Counseling and Screening (12+)] Future Scheduled 2023-12-[address] [facility] 00:00:00 Counseling and Screening Med ical Center (12+) [code = Tobacco Cessation Counseling and Screening (12+)] Future Scheduled 2023-02-07 Influenza Vaccine (#1) [facility] 00:[facility]:00 [code = Influenza Vaccine Me dical Center (#1)] Future Scheduled 2023-02-07 INFLUENZA VACCINE (Season [facility] 00:00:00 Ended) [code = INFLUENZA Med ical Center VACCINE (Season Ended)] Future Scheduled 2023-02-07 Influenza Vaccine (Season [facility] 00:00:00 Ended) [code = Influenza Med ical Center Vaccine (Season Ended)] Future Scheduled 2023-02-07 Influenza Vaccine (#1) [facility] 00:00:00 [code = Influenza Vaccine Me dical Center (#1)] Future Scheduled 2023-02-07 Influenza Vaccine (#1) [facility] 00:00:00 [code = Influenza Vaccine Me dical Center (#1)] Future Scheduled 2023-02-07 Influenza Vaccine (#1) [facility] 00:00:00 [code = Influenza Vaccine Me dical Center (#1)] Future Scheduled 2022-06-[address] [facility] 00:00:00 (12+) [code = DEPRESSION Med ical Center SCREENING (12+)] Future Scheduled 2022-06-[address] [facility] 00:00:00 (12+) [code = DEPRESSION Med ical Center SCREENING (12+)] Future Scheduled 2022-06-[address] [facility] 00:00:00 (12+) [code = DEPRESSION Med ical Center SCREENING (12+)] Future Scheduled 2022-06-[address] [facility] 00:00:00 (12+) [code = DEPRESSION Med ical Center SCREENING (12+)] Future Scheduled 2022-06-[address] [facility] 00:00:00 (12+) [code = DEPRESSION Med ical Center SCREENING (12+)] Future Scheduled 2022-06-[address] [facility] 00:00:00 (12+) [code = DEPRESSION Med ical Center SCREENING (12+)] Future Scheduled 2022-06-[address] [facility] 00:00:00 (12+) [code = DEPRESSION Med ical Center SCREENING (12+)] Future Scheduled 2022-02-07 INFLUENZA VACCINE (#1) [facility] 00:00:00 [code = INFLUENZA VACCINE Me dical Center (#1)] Future Scheduled 2022-02-07 INFLUENZA VACCINE (#1) [facility] 00:00:00 [code = INFLUENZA VACCINE Me dical Center (#1)] Future Scheduled 2005 Screening for malignant [facility] 00:00:00 neoplasm of cervix Medical C enter (procedure) [code = 511783224] Future Scheduled 2005 Screening for malignant [facility] 00:00:00 neoplasm of cervix Medical C enter (procedure) [code = 504690955] Future Scheduled 2005 Screening for malignant [facility] 00:00:00 neoplasm of cervix Medical C enter (procedure) [code = 146677579] Future Scheduled 2005 Screening for malignant [facility] 00:00:00 neoplasm of cervix Medical C enter (procedure) [code = 283259539] Future Scheduled 2005 Screening for malignant [facility] 00:00:00 neoplasm of cervix Medical C enter (procedure) [code = 787818538] Future Scheduled 2005 Screening for malignant [facility] 00:00:00 neoplasm of cervix Medical C enter (procedure) [code = 463477932] Future Scheduled 2005 Screening for malignant [facility] 00:00:00 neoplasm of cervix Medical C enter (procedure) [code = 375144088] Future Scheduled 2005 Screening for malignant [facility] 00:00:00 neoplasm of cervix Medical C enter (procedure) [code = 256805133] Future Scheduled 2003-11-06 DTAP/TDAP/TD VACCINES (1 [facility] [...] HEPATITIS C Medical Center SCREENING] Future Scheduled 1999-11-[address] [facility] 00:[facility]:00 virus screening Medical Cent er (procedure) [code = 149389273] Future Scheduled 1999-11-[address] [facility] 00:00:00 virus screening Medical Cent er (procedure) [code = 412435523] Future Scheduled 1999-11-[address] [facility] 00:00:00 virus screening Medical Cent er (procedure) [code = 360727974] Future Scheduled [address] [...] Date/Time Type Type Clinicians Facility Department ID 2022-12-13 Inpatient DION AVILA [facility] [id number] [facility] 15:02:29 2022-12-[address] [facility] SLE [id number] SLE[facility] 17:50:41 2022-12-12 Inpatient DION AVILA [facility] [id number] SLE[facility] 17:06:51 2022-12-12 Inpatient DION AVILA [facility] [id number] SLEH 14:35:53 2022-12-12 Inpatient DION AVILA [facility] [id number] SLEH 14:24:25 2019-11-16 Inpatient [facility] [id number] [facility] 15:52:[address] [place] [address] 2019-10-16 Inpatient EM Dalton, [facility] MED[facility].01 [id number] [facility] 01:11:00 Sanna 13 [facility] 2019-10-06 Inpatient EM Dalton, [facility] LD [id number] [facility] 00:27:00 Sanna 30 [facility] 2019-09-15 [facility] [id number] [facility] 13:41:00 Sanna 76 [facility] 2019-09-08 Inpatient Hoffman, [facility] ROMAN [id number] [facility] 14:47:00 Sanna 45 [facility] 2019-08-14 Inpatient [facility], [facility] OBANTE [id number] H[facility] 17:43:00 Sanna 52 [facility] 2019-07-29 Inpatient [facility], [facility] OBANTE [id number] H[facility] 10:30:00 Sanna 81 [facility] 2019-06-30 Inpatient Hoffman, [facility] ROMAN [id number] HCA 21:41:00 Sanna 94 [facility] 2023-01-09 2023-01-09 [facility] [id number] [facility] 00:00:00 Orders [facility] 2023-01-08 2023-01-08 [facility] Lydia Dowrus [facility] [id number] 00:[facility]00 00:00:00 Only [facility] 2022-12-12 2022-12-17 Inpatient LYDIA DOWRUS SLE Surgery [id number] SLE 11:08:00 12:53:00 2022-12-12 2022-12-17 [facility] [id number] 11:08:00 12:53:00 Encounter [facility] 2022-12-12 2022-12-17 [facility] [id number] [id number] 11:08:00 12:53:00 Encounter [facility] 2022-12-12 2022-12-12 Anesthesia Shane Menendez [facility] [id number] [facility] 14:03:00 18:53:00 Event Darian Roche [facility] 2022-12-12 2022-12-12 Anesthesia Shane Menendez [facility] [id number] [facility] 14:03:00 18:53:00 Event Darian Roche [facility] 2022-12-12 2022-12-12 [facility] Dion Dow [facility] [id number] 13:00:00 17:30:00 [facility] 2022-12-12 2022-12-[address] [facility] [id number] 13:00:00 17:30:00 [facility] 2022-12-12 2022-12-12 Travel [facility] [id number] [facility] 00:00[facility]00 00:00:00 [facility] 2022-12-12 2022-12-12 Travel [facility] [id number] [facility] 00:[facility]00 00:00:00 [facility] 2022-12-11 2022-12-11 Outpatient [facility] [id number] SLE 08:57:18 23:59:00 2022-12-11 2022-12-11 [facility]LydiaDion [facility] [id number] [id number] 08:00:00 23:59:00 Encounter [facility] 2022-12-11 2022-12-11 [facility]LydiaDion [facility] [id number] [id number] 08:00:00 23:59:00 Encounter [facility] 2022-12-11 2022-12-11 Travel [facility] [id number] [facility] 00:00:00 00:00:00 [facility] 2022-12-11 2022-12-11 Travel [facility] [id number] [facility] 00:00:00 00:00:00 [facility] 2022-12-06 2022-12-[address] [facility] [id number] SLEH 10:15:53 23:59:00 2022-12-06 2022-12-06 [facility] Dion Dow [facility] [id number] 10:15:53 23:59:00 Encounter [facility] 2022-12-06 2022-12-06 [facility] Dion Dow [facility] [id number] [id number] 10:15:53 23:59:00 Encounter [facility] 2022-12-06 2022-12-06 Outpatient [facility] [id number] SLE 10:15:15 10:15:15 2022-12-06 2022-12-06 [facility] [id number] SLEH 10:14:48 10:14:00 2022-12-06 2022-12-06 [facility]Dion [facility] [id number] [id number] 10:00:00 10:14:00 Encounter [facility] 2022-12-06 2022-12-06 [facility] [facility] [id number] [id number] 10:00:00 10:14:00 Encounter [facility] 2022-12-06 2022-12-06 Outpatient DION DOW [facility] [id number] SLEH 10:14:28 09:59:00 2022-12-06 2022-12-06 [facility] [facility] [id number] [id number] 09:30:00 09:59:00 Encounter [facility] 2022-12-06 2022-12-[address] [facility] [id number] [id number] 09:30:00 09:59:00 Encounter [facility] 2022-12-06 2022-12-[address] [facility] [id number] 00:00:00 00:00:00 Only [facility] 2022-12-06 2022-12-[address] [facility] [id number] 00:00:00 00:00:00 Only [facility] 2022-12-05 2022-12-[address] [facility] [id number] 00:00:00 00:00:00 Only B [facility] 2022-12-05 2022-12-[address] [facility] [id number] 00:00:00 00:00:00 Only B [facility] 2022-12-04 2022-12-04 [facility] [id number] Univers 13:40:00 14:11:55 LEANN lazaro [facility] 2022-12-04 2022-12-04 Urgent Leann Yao [facility] 1.2.840.114 [id number] Univers 13:40:00 14:11:55 Care Unknown, Attending HEALTH 350.1.13.10 ity of [place] 4.2.7.2.686 Yogesh as ANN?BLEA [id number] [address] MEDICAL OFFICE BUILDING 2022-12-03 2022-12-03 Emergency X [facility] ERT [id number] Univers 17:23:00 19:58:00 TATI lazaro [facility] 2022-12-03 2022-12-03 Emergency [facility] 1.2.737.139 [id number] Univers 17:23:00 19:58:00 PacificEdgar SKY 350.1.13.10 ity of [place] 4.2.7.2.686 [place] [facility] [id number] [facility] [address] 2022-11-22 2022-11-22 Outpatient R CAYDEN RODRIGUEZ [facility] [id number] Univers 12:30:00 12:30:00 CAYDEN RODRIGUEZ [facility] 2022-11-22 2022-11-22 Orders Doctor WATT 1.2.840.114 [id number] Univers 00:00:00 00:00:00 Only Unassigned, ALLI 350.1.13.[address] [facility] 4.2.7.2.686 Yogesh as [id number] [facility] [address] 2022-11-21 2022-11-21 [facility] 1.2.840.114 [id number] Univers 14:00:59 23:59:00 Encounter Gabriela JOSE DANIEL 350.1.13.10 ity of [place] 4.2.7.2.686 [facility] [id number] [facility] [address] [place] 2022-11-21 2022-11-[address] [facility] [id number] Univers 13:09:43 13:59:00 GABRIELA lazaro [facility] 2022-11-21 2022-11-21 [facility] 1.2.840.114 [id number] Univers 13:09:43 13:59:00 Encounter Gabriela SKY 350.1.13.10 ity [facility] 4.2.7.2.686 [facility] [id number] [facility] [address] [place] [address] 2022-11-20 2022-11-[address] [facility] [id number] Univers 09:30:00 09:30:00 GABRIELA makennahenrietta [facility] 2022-11-18 2022-11-18 Emergency [facility] [id number] Univers 15:20:00 19:01:00 MAGGIE makennahenrietta [facility] 2022-11-18 2022-11-18 Emergency [facility] 1.2.840.114 [id number] Univers 15:20:00 19:01:00 Maggie SKY 350.1.13.10 i ty of [place] 4.2.7.2.686 [facility] [id number] [facility] [address] [place] 2022-11-18 2022-11-[address] [facility] [id number] 00:00:00 00:00:00 Only [facility] 2022-11-18 2022-11-[address] [facility] [id number] 00:00:00 00:00:00 Only [facility] 2022-10-15 2022-10-15 Emergency X SINGER [facility] ERT [id number] Univers 10:05:00 12:29:00 MAIK lazaro [facility] 2022-10-15 2022-10-15 Emergency Hadley, [facility] [id number] [id number] Univers 10:05:00 12:29:00 Maik SKY 350.1.13.10 i ty madie [place]2.7.2.686 [place] [id number] [address] 2022-10-01 2022-10-01 Urgent Tristan Trejo [facility] 1.2.840.114 [id number] Univers 11:00:00 11:20:00 Care Unknown, Attending HEALTH 350..13.10 ity madie [place] 4.2.7.2.686 Yogesh as ANN?BLEA [id number] [address] MEDICAL OFFICE BUILDING 2022-10-01 2022-10-01 Outpatient R CLAY [facility] [id number] Univers 11:00:00 11:00:00 TRISTAN lazaro [facility] 2022-09-29 2022-09-29 Urgent Tenzin Bryson [facility] ..840.114 [id number] Univers 20:00:00 20:20:00 Care Unknown, Attending HEALTH 350..13.10 ity madie [place] 4.2.7.2.686 Yogesh as ANN?BLEA [id number] [address] MEDICAL OFFICE BUILDING 2022-09-29 2022-09-29 Outpatient R TENZIN [facility] [id number] Univers 20:00:00 20:00:00 BRYSON ithenrietta [facility] 2022-07-04 2022-07-04 Outpatient R III, [facility] [id number] Univers 10:40:00 11:42:35 BENNIE henrietta [facility] 2022-07-04 2022-07-04 Urgent Bennie Dow [facility] 1.2.840.114 [id number] Univers 10:40:00 11:00:00 Care Unknown, Attending HEALTH 350..13.10 ithenrietta ramachandran [place] 4.2.7.2.686 Yogesh as ANN?BLEA [id number] [address] MEDICAL OFFICE BUILDING 2022-05-08 2022-05-08 Letter ALYSA Sargent 1.2.840.114 [id number] Univers 00:00:00 00:00:00 (Out) Fernanda CARSON 350.1.13.10 it y of [facility] 4.2.7.2.686 Yogesh as [id number] [address] 2022-05-07 2022-05-07 [facility] [id number] [id number] Univers 11:02:14 23:59:00 [facility] 350.1.13.10 ity of [place] 4.2.7.2.686 Yogesh as ANN?BLEA [id number] [facility] [address] [place] MEDICAL OFFICE [facility] 2022-05-07 2022-05-07 [facility] [id number] Univers 10:20:00 11:40:39 [facility] 2022-[facility]-07 2022-05-07 [facility] 1.2.840.11 [id number] Univers 10:20:00 11:40:39 Care Unknown, [facility] HEALTH 350.1.13.10 ity of [place] 4.2.7.2.686 Yogesh as ANN?BLEA [id number] Wa dicke [facility] [address] [place] MEDICAL OFFICE [facility] 2021-12-11 2021-12-18 Inpatient [facility] [id number] [facility] 03:34:00 15:16:00 [facility] 2021-12-11 2021-12-18 Hospital ER Shane Stone [facility] [id number] [facility] St 03:34:00 15:16:00 Encounter Farzaneh Cartwright [facility] 2021-12-17 2021-12-[address] [facility] [id number] 10:30:00 13:23:00 Ivette [facility] 2021-12-17 2021-12-[address] [facility] [id number] [facility] 10:48:00 13:05:00 Event [facility] 2021-11-06 2021-11-06 Emergency X ROBERTO, [facility] ERT [id number] Univers 09:30:00 13:05:00 AYE lazaro [facility] 2021-11-06 2021-11-06 Emergency [facility] 1.2.472.123 [id number] Univers 09:30:00 13:05:00 Aye SKY 350.1.13.10 i ty of [place] 4.2.7.2.686 [place] [facility] [id number] [place] [address] [place] 2021-11-06 2021-11-06 Orders Doctor ALYSA 1.2.840.114 [id number] Univers 00:00:00 00:00:00 Only Unassigned, ALLI 350.1.13.[address] HOSPITAL 4.2.7.2.686 Yogesh as [id number] [address] 2021-10-16 2021-10-16 [facility] 1.2.840.114 [id number] Univers 15:20:00 15:40:00 [facility] 350.1.13.10 it y of [place] 4.2.7.2.686 Yogesh as ANN?BLEA [id number] [address] MEDICAL OFFICE BUILDING 2021-10-16 2021-10-16 Outpatient R CLAY [facility] [id number] Univers 15:20:00 15:20:00 TRISTAN lazaro [facility] 2021-10-16 2021-10-16 Orders Doctor ALYSA 1.2.840.114 [id number] Univers 00:00:00 00:00:00 Only Unassigned, ALLI 350.1.13.[address] HOSPITAL 4.2.7.2.686 Yogesh as [id number] [address] 2021-06-03 2021-06-03 Outpatient R SARAH [facility] [id number] Univers 13:20:00 15:39:32 FELIPA lazaro [facility] 2021-06-03 2021-06-03 Urgent [facility] [id number] [id number] Univers 13:20:00 13:40:00 Care Felipa HEALTH 350.1.13.10 it y of [place] 4.2.7.2.686 Yogesh as ANN?BLEA [id number] [address] MEDICAL OFFICE BUILDING 2021-05-07 2021-05-07 Outpatient R MAXIMILIAN [facility] [id number] Univers 19:00:00 19:13:51 LEANN ity of [facility] 2021-05-07 2021-05-07 [facility] 1.2.840.114 [id number] Univers 18:53:36 19:13:51 Care Leann HEALTH 350.1.13.10 it y of [place] 4.2.7.2.686 Yogesh as ANN?BLEA [id number] [address] OFFICE [facility] 2020-02-04 2020-02-04 Letter ALYSA Cifuentes 1.2.840.114 [id number] 00:00:00 00:00:00 (Out) Yesi T ALLI 350.1.13.10 HOSPITAL 4.2.7.2.686 [id number] [facility] 2020-02-04 2020-02-04 Letter ALYSA Cifuentes 1.2.840.114 [id number] Univers 00:00:00 00:00:00 (Out) Yesi Amor ALLI 350.1.13.10 it y of HOSPITAL 4.2.7.2.686 Yogesh as [id number] [address] 2020-02-01 2020-02-01 Laboratory Lab, [facility] 1.2.840.114 [id number] 15:55:19 16:15:19 Only Fam Pob I Health 350.1.13.10 [place] 4.2.7.2.686 Professio [phone] nal [facility] 2020-02-01 2020-02-01 Laboratory Lab, [facility] Fam Pob I [facility] 1.2. 840.114 [id number] Univers 15:55:19 16:15:19 Only Anene, [facility] 350.1.13.10 ity of [place] 4.2.7.2.686 Yogesh as Professio [phone] Me dical nal [address] [facility] 2020-02-01 2020-02-01 Outpatient R [facility] [id number] Univers 16:00:00 16:00:00 ity [facility] Results Test Description Test Time Test Comments Results Result Comments Source BASIC METABOLIC PANEL 2022-12-14 11:44:58 Test Item Value Reference Range Interpretation Comme nts SODIUM (BEAKER) (test 137 meq/L 136-145 code = 381) POTASSIUM (BEAKER) 3.6 meq/L 3.5-5.1 (test code = 379) CHLORIDE (BEAKER) (test 101 meq/L 98-107 code = 382) CO2 (BEAKER) (test code 27 meq/L 22-29 = 355) BLOOD UREA NITROGEN 7 mg/dL 7-21 (BEAKER) (test code = 354) CREATININE (BEAKER) 0.75 mg/dL 0.57-1.25 (test code = 358) GLUCOSE RANDOM (BEAKER) 97 mg/dL 70-105 (test code = 652) CALCIUM (BEAKER) (test 8.9 mg/dL 8.4-10.2 code = 697) EGFR (BEAKER) (test 104 mL/min/1.73 sq I nterpretation of eGFR values code = 1092) m Stage Descripti on Result G1 Normal or high >=90 G2 Mildly decreased 60-89 G3a Mildly to moderately 45-5 9 G3b Moderately to severely 30- 44 G4 Severly decreased 15-29 G5 Kidney failure <15Repo rted eGFR is based on the CK D-EPI 2020 equation that d oes not use a race coefficien tEstimated GFR is not as accurate as Creatinine Clearance in pr edicting glomerular filt ration rate. Estimated GFR i s not applicable for dialysis magalys marshall Orbitread Operator ID - [id number] W/PLT COUNT & AUTO [id number] 10:26:50 Test Item Value Reference Range Interpretation Comments WHITE BLOOD CELL COUNT (BEAKER) 8.9 K/ L 3.5-10.5 (test code = 775) RED BLOOD CELL COUNT (BEAKER) 3.79 M/ L 3.93-5.22 L (test code = 761) HEMOGLOBIN (BEAKER) (test code = 11.2 GM/DL 11.2-15.7 410) HEMATOCRIT (BEAKER) (test code = 35.2 % 34.1-44.9 411) MEAN CORPUSCULAR VOLUME (BEAKER) 93 fL 79-95 (test code = 753) MEAN CORPUSCULAR HEMOGLOBIN 29.6 pg 25.6-32.2 (BEAKER) (test code = 751) MEAN CORPUSCULAR HEMOGLOBIN CONC 31.8 GM/DL 32.2-35.5 L (BEAKER) (test code = 752) RED CELL DISTRIBUTION WIDTH 12.9 % 11.7-14.4 (BEAKER) (test code = 412) PLATELET COUNT (BEAKER) (test 256 K/CU MM 150-450 code = 756) MEAN PLATELET VOLUME (BEAKER) 9.2 fL 9.4-12.3 L (test code = 754) NUCLEATED RED BLOOD CELLS 0 /100 WBC 0-0 (BEAKER) (test code = 413) NEUTROPHILS RELATIVE PERCENT 77 % (BEAKER) (test code = 429) LYMPHOCYTES RELATIVE PERCENT 14 % (BEAKER) (test code = 430) MONOCYTES RELATIVE PERCENT 7 % (BEAKER) (test code = 431) EOSINOPHILS RELATIVE PERCENT 2 % (BEAKER) (test code = 432) BASOPHILS RELATIVE PERCENT 0 % (BEAKER) (test code = 437) NEUTROPHILS ABSOLUTE COUNT 6.82 K/ L 1.56-6.13 H (BEAKER) (test code = 670) LYMPHOCYTES ABSOLUTE COUNT 1.22 K/ L 1.18-3.74 (BEAKER) (test code = 414) MONOCYTES ABSOLUTE COUNT (BEAKER) 0.66 K/ L 0.24-0.36 H (test code = 415) EOSINOPHILS ABSOLUTE COUNT 0.13 K/ L 0.04-0.36 (BEAKER) (test code = 416) BASOPHILS ABSOLUTE COUNT (BEAKER) 0.04 K/ L 0.01-0.08 (test code = 417) IMMATURE GRANULOCYTES-RELATIVE 0.30 % 0.00-1.00 PERCENT (BEAKER) (test code = 2801) XR LUMBAR SPINE 2 OR 3 [id number] 01:53:[address] [facility] : 1985 Sex: FCLINICAL HISTORY: standingCOMPARISON: None.FINDINGS:3 upright images of the lumbar spine are submitted.The patient has undergone discectomy and antibody spacer placement atL4-L5 with transpedicular screw and posterior deysi fusion at L4-L5. Thehardware appears appropriately positioned and the fused levels appearappropriately aligned.Electronically Signed By: Fortino Sun12/14/2022 01:55 CDTWorkstation Na me: [id number] METABOLIC [id number] 04:29:54 Test Item Value Reference Range Interpretation Comments SODIUM (BEAKER) 137 meq/L 136-145 (test code = 381) POTASSIUM 4.4 meq/L 3.5-5.1 (BEAKER) (test code = 379) CHLORIDE (BEAKER) 105 meq/L 98-107 (test code = 382) CO2 (BEAKER) 24 meq/L 22-29 (test code = 355) BLOOD UREA 14 mg/dL 7-21 NITROGEN (BEAKER) (test code = 354) CREATININE 0.74 mg/dL 0.57-1.25 (BEAKER) (test code = 358) GLUCOSE RANDOM 126 mg/dL 70-105 H (BEAKER) (test code = 652) CALCIUM (BEAKER) 8.4 mg/dL 8.4-10.2 (test code = 697) EGFR (BEAKER) 106 Interpretatio n of eGFR (test code = mL/min/1.73 values Stage De scription 1092) sq m Result G1 Jess l or high >=90 G2 Mildly decreased 60-89 G3a Mildl y to moderately 45-5 9 G3b Moderately to s everely 30-44 G4 Severl y decreased 15-29 G5 Kidney failure <15Reported eGF R is based on the CKD-EPI 2020 equation that d oes not use a race coefficientEsti mated GFR is not as accur ate as Creatinine Darcie barrera in predicting glom erular filtration rate . Estimated GFR is not appl icable for dialysis patien ts Orbitread Operator ID - ADMINCBC (HEMOGRAM ONLY)2022-12-13 03:34:12 Test Item Value Reference Range Interpretation Comments WHITE BLOOD CELL COUNT (BEAKER) 13.4 K/ L 3.5-10.5 H (test code = 775) RED BLOOD CELL COUNT (BEAKER) 3.80 M/ L 3.93-5.22 L (test code = 761) HEMOGLOBIN (BEAKER) (test code = 11.4 GM/DL 11.2-15.7 410) HEMATOCRIT (BEAKER) (test code = 35.3 % 34.1-44.9 411) MEAN CORPUSCULAR VOLUME (BEAKER) 93 fL 79-95 (test code = 753) MEAN CORPUSCULAR HEMOGLOBIN 30.0 pg 25.6-32.2 (BEAKER) (test code = 751) MEAN CORPUSCULAR HEMOGLOBIN CONC 32.3 GM/DL 32.2-35.5 (BEAKER) (test code = 752) RED CELL DISTRIBUTION WIDTH 13.0 % 11.7-14.4 (BEAKER) (test code = 412) PLATELET COUNT (BEAKER) (test 282 K/CU MM 150-450 code = 756) MEAN PLATELET VOLUME (BEAKER) 9.3 fL 9.4-12.3 L (test code = 754) NUCLEATED RED BLOOD CELLS 0 /100 WBC 0-0 (BEAKER) (test code = 413) FL FLUORO NON-SPECIFIC UP TO 1 [id number] 15:10:19 [facility] CENTERName: FELICIA CONDE : 1985 Sex: FTECHNIQUE: FL FLUORO NON-SPECIFIC UP TO 1 HOURINDICATION: alif l5/s1 FLUOROGRAPHY.COMPARISON: None.FINDINGS:Single spot fluoroscopic image of the lower lumbar spine performed inthe lateral projection demonstrates a needle projecting over the L5/S1disc. Total fluoroscopy time one second. Hemostat projects anterior tothe sacral promontory.IMPRESSION:Intraoperative localization, as above.Electronically Si gned By: Jaiden Connor12/12/2022 15:12 CDTWorkstation Name: [id number] , [id number] 11:57:00 Test Item Value Reference Range Interpretation Comments Test Urine, POC (test Negative code = 3002892) Control line present?, POC (test Yes code = 4087136) Background clear?, POC (test code Yes = 2093476) UPT Cassette Lot #, POC (test code 921462 = 8639551) UPT Cassette Expiration Date, POC 12-24-2023 (test code = 6548065) [facility] [id number] 11:57:00 Test Item Value Reference Range Interpretation Comments Test Urine, POC (test Negative code = 3602360) Control line present?, POC (test Yes code = 9093248) Background clear?, POC (test code Yes = 0707295) UPT Cassette Lot #, POC (test code 905059 = 6422090) UPT Cassette Expiration Date, POC 12-24-2023 (test code = 6153477) [facility] [id number] 11:57:00 Test Item Value Reference Range Interpretation Comments Test Urine, POC (test Negative code = 6567324) Control line present?, POC (test Yes code = 9603799) Background clear?, POC (test code Yes = 6526791) UPT Cassette Lot #, POC (test code 551156 = 5089372) UPT Cassette Expiration Date, POC 12-24-2023 (test code = 7042429) [facility] 2 [id number] 00:41:33 [facility] : 1985 Sex: FEXAMINATION: XR CHEST 2 VIEWS INDICATION: preopCOMPARISON: CXR 12/15/2021 FINDINGS:LINES/TUBES: None LUNGS: The lungs are well inflated. No focal airspace consolidation.PLEURA: No pleural effusion or pneumothorax.MEDIASTINUM: The cardiomediastinal silhouette appears normal in size andshape.BONES/SOFT TISSUES: No acute osseous injury.ABDOMEN: No free air under the diaphragm.IMPRESSION:No acute intrathorac ic abnormality.Electronically Signed By: Sridhar Sun12/07/2022 00:43 CDTWorkstation Name: [id number] METABOLIC [id number] 11:35:31 Test Item Value Reference Range Interpretation Comments SODIUM (BEAKER) 142 meq/L 136-145 (test code = 381) POTASSIUM 3.8 meq/L 3.5-5.1 (BEAKER) (test code = 379) CHLORIDE (BEAKER) 107 meq/L 98-107 (test code = 382) CO2 (BEAKER) 26 meq/L 22-29 (test code = 355) BLOOD UREA 10 mg/dL 7-21 NITROGEN (BEAKER) (test code = 354) CREATININE 0.78 mg/dL 0.57-1.25 (BEAKER) (test code = 358) GLUCOSE RANDOM 92 mg/dL 70-105 (BEAKER) (test code = 652) CALCIUM (BEAKER) 9.2 mg/dL 8.4-10.2 (test code = 697) EGFR (BEAKER) 100 Interpretatio n of eGFR (test code = mL/min/1.73 values Stage De scription 1092) sq m Result G1 Jess l or high >=90 G2 Mildly decreased 60-89 G3a Mildl y to moderately 45-5 9 G3b Moderately to s everely 30-44 G4 Severl y decreased 15-29 G5 Kidney failure <15Reported eGF R is based on the CKD-EPI 2020 equation that d oes not use a race coefficientEsti mated GFR is not as accur ate as Creatinine Darcie barrera in predicting glom erular filtration rate . Estimated GFR is not appl icable for dialysis patien ts Orbitread Operator ID - [id number] 11:33:32 Test Item Value Reference Range Interpretation Comments PROTIME (BEAKER) (test code = 13.8 seconds 11.9-14.2 759) INR (BEAKER) (test code = 370) 1.13 <=5.90 PARTIAL THROMBOPLASTIN TIME 27.5 seconds 22.5-36.0 (BEAKER) (test code = 760) RECOMMENDED COUMADIN/WARFARIN INR THERAPY RANGESSTANDARD DOSE: 2.0 - 3.0 Includes: PROPHYLAXIS for venous thrombosis, systemic embolization; TREATMENT for venous thrombosis and/or pulmonary embolus.HIGH RISK: Target INR is 2.5-3.5 for patients with mechanical heart valves.Urinalysis w/Microscopic + Reflex to [id number] 11:21:58 Test Item Value Reference Range Interpretation Comments Color, UA (test code Light Yellow = 5778-6) Clarity, UA (test Clear code = 5767-9) Specific [place], UA 1.014 1.001-1.035 (test code = 5811-5) pH, UA (test code = 6.5 5.0-8.0 5803-2) Protein, UA (test Negative Negative code = 61631-4) Glucose, UA (test Negative Negative code = 365) Ketones, UA (test Negative Negative code = 2514-8) Bilirubin, UA (test Negative Negative code = 70303-2) Blood, UA (test code Trace Negative A = 42977-7) Nitrite, UA (test Negative Negative code = 5802-4) Leukocytes, UA (test Negative Negative code = 5799-2) Urobilinogen, UA 0.2 0.2-1.0 (test code = 37621-5) RBC, UA (test code = See_Comment [Autom ated 30787-5) message] The system which generated this result transmit [place] reference range : /HPF. The reference range was not used to interpret this result as normal/abnormal . WBC, UA (test code = 1 See_Comment [Autom ated 5821-4) message] The system which generated this result transmit [place] reference range : /HPF. The reference range was not used to interpret this result as normal/abnormal . Mucus (test code = Rare 8247-9) Squam Epithel, UA See_Comment [Automate d (test code = 55142-1) messag e] The system which generated this result transmit [place] reference range : /HPF. The reference range was not used to interpret this result as normal/abnormal . Specimen Source (test code = 2795) TONY (test code = TONY) Orbitread Operator ID - [auto]Orbitread Operator ID - tech Lab Interpretation Abnormal (test code = 22242-6) [facility] + Reflex to Culture 2022-12-06 11:21:58 Test Item Value Reference Range Interpretation Comments Color, UA (test code Light Yellow = 5778-6) Clarity, UA (test Clear code = 5767-9) Specific [place], UA 1.014 1.001-1.035 (test code = 5811-5) pH, UA (test code = 6.5 5.0-8.0 5803-2) Protein, UA (test Negative Negative code = 47073-4) Glucose, UA (test Negative Negative code = 365) Ketones, UA (test Negative Negative code = 2514-8) Bilirubin, UA (test Negative Negative code = 78740-2) Blood, UA (test code Trace Negative A = 94977-5) Nitrite, UA (test Negative Negative code = 5802-4) Leukocytes, UA (test Negative Negative code = 5799-2) Urobilinogen, UA 0.2 0.2-1.0 (test code = 41094-6) RBC, UA (test code = See_Comment [Autom ated 75433-4) message] The system which generated this result transmit [place] reference range : /HPF. The reference range was not used to interpret this result as normal/abnormal . WBC, UA (test code = 1 See_Comment [Autom ated 5821-4) message] The system which generated this result transmit [place] reference range : /HPF. The reference range was not used to interpret this result as normal/abnormal . Mucus (test code = Rare 8247-9) Squam Epithel, UA See_Comment [Automate d (test code = 13812-5) messag e] The system which generated this result transmit [place] reference range : /HPF. The reference range was not used to interpret this result as normal/abnormal . Specimen Source (test code = 2795) TONY (test code = TONY) Orbitread Operator ID - [auto]Orbitread Operator ID - tech Lab Interpretation Abnormal (test code = 17688-4) [facility] + Reflex to Culture 2022-12-06 11:21:58 Test Item Value Reference Range Interpretation Comments Color, UA (test code Light Yellow = 5778-6) Clarity, UA (test Clear code = 5767-9) Specific [place], UA 1.014 1.001-1.035 (test code = 5811-5) pH, UA (test code = 6.5 5.0-8.0 5803-2) Protein, UA (test Negative Negative code = 14931-9) Glucose, UA (test Negative Negative code = 365) Ketones, UA (test Negative Negative code = 2514-8) Bilirubin, UA (test Negative Negative code = 24815-0) Blood, UA (test code Trace Negative A = 19224-5) Nitrite, UA (test Negative Negative code = 5802-4) Leukocytes, UA (test Negative Negative code = 5799-2) Urobilinogen, UA 0.2 0.2-1.0 (test code = 79955-8) RBC, UA (test code = See_Comment [Autom ated 45732-3) message] The system which generated this result transmit [place] reference range : /HPF. The reference range was not used to interpret this result as normal/abnormal . WBC, UA (test code = 1 See_Comment [Autom ated 5821-4) message] The system which generated this result transmit [place] reference range : /HPF. The reference range was not used to interpret this result as normal/abnormal . Mucus (test code = Rare 8247-9) Squam Epithel, UA See_Comment [Automate d (test code = 89341-5) messag e] The system which generated this result transmit [place] reference range : /HPF. The reference range was not used to interpret this result as normal/abnormal . Specimen Source (test code = 2795) TONY (test code = TONY) Orbitread Operator ID - [auto]Orbitread Operator ID - tech Lab Interpretation Abnormal (test code = 79420-0) [facility] Reflex to Culture 2022-12-06 11:21:58 Test Item Value Reference Range Interpretation Comments Color, UA (test code Light Yellow = 5778-6) Clarity, UA (test Clear code = 5767-9) Specific [place], UA 1.014 1.001-1.035 (test code = 5811-5) pH, UA (test code = 6.5 5.0-8.0 5803-2) Protein, UA (test Negative Negative code = 09827-4) Glucose, UA (test Negative Negative code = 365) Ketones, UA (test Negative Negative code = 2514-8) Bilirubin, UA (test Negative Negative code = 93071-7) Blood, UA (test code Trace Negative A = 29669-2) Nitrite, UA (test Negative Negative code = 5802-4) Leukocytes, UA (test Negative Negative code = 5799-2) Urobilinogen, UA 0.2 0.2-1.0 (test code = 94206-8) RBC, UA (test code = See_Comment [Autom ated 05590-1) message] The system which generated this result transmit [place] reference range : /HPF. The reference range was not used to interpret this result as normal/abnormal . WBC, UA (test code = 1 See_Comment [Autom ated 5821-4) message] The system which generated this result transmit [place] reference range : /HPF. The reference range was not used to interpret this result as normal/abnormal . Mucus (test code = Rare 8247-9) Squam Epithel, UA See_Comment [Automate d (test code = 01952-9) messag e] The system which generated this result transmit [place] reference range : /HPF. The reference range was not used to interpret this result as normal/abnormal . Specimen Source (test code = 2795) TONY (test code = TONY) Orbitread Operator ID - [auto]Orbitread Operator ID - tech Lab Interpretation Abnormal (test code = 14097-5) [facility]LEX URINE [id number] 11:21:58 Test Item Value Reference Range Interpretation Comments COLOR (BEAKER) (test code = 470) Light Yellow CLARITY (BEAKER) (test code = Clear 469) SPECIFIC GRAVITY UA (BEAKER) 1.014 1.001-1.035 (test code = 468) PH UA (BEAKER) (test code = 467) 6.5 5.0-8.0 PROTEIN UA (BEAKER) (test code = Negative Negative 464) GLUCOSE UA (BEAKER) (test code = Negative Negative 365) KETONES UA (BEAKER) (test code = Negative Negative 371) BILIRUBIN UA (BEAKER) (test code Negative Negative = 462) BLOOD UA (BEAKER) (test code = Trace Negative A 461) NITRITE UA (BEAKER) (test code = Negative Negative 465) LEUKOCYTE ESTERASE UA (BEAKER) Negative Negative (test code = 466) UROBILINOGEN UA (BEAKER) (test 0.2 0.2-1.0 code = 463) RBC UA (BEAKER) (test code = < /HPF 519) WBC UA (BEAKER) (test code = 1 /HPF 520) MUCUS (BEAKER) (test code = Rare 1574) SQUAMOUS EPITHELIAL (BEAKER) < /HPF (test code = 516) SOURCE(BEAKER) (test code = 2796) Orbitread Operator ID - [auto]Orbitread Operator ID - techPregnancy Screen, [id number] 11:19:27 Test Item Value Reference Range Interpretation Comments Preg Test, Ur (test code = 2-1) Negative Negative Lab Interpretation (test code = Normal 47270-2) [facility], [id number] 11:19:27 Test Item Value Reference Range Interpretation Comments Preg Test, Ur (test code = 2112-1) Negative Negative Lab Interpretation (test code = Normal 23072-9) [facility], [id number] 11:19:27 Test Item Value Reference Range Interpretation Comments Preg Test, Ur (test code = 2112-1) Negative Negative Lab Interpretation (test code = Normal 31637-2) [facility], [id number] 11:19:27 Test Item Value Reference Range Interpretation Comments Preg Test, Ur (test code = 2112-1) Negative Negative Lab Interpretation (test code = Normal 66916-3) [facility] S[facility], [id number] 11:19:27 Test Item Value Reference Range Interpretation Comments TEST URINE (BEAKER) (test Negative Negative code = 583) CBC W/PLT COUNT & AUTO [id number] 11:14:26 Test Item Value Reference Range Interpretation Comments WHITE BLOOD CELL COUNT (BEAKER) 7.3 K/ L 3.5-10.5 (test code = 775) RED BLOOD CELL COUNT (BEAKER) 4.27 M/ L 3.93-5.22 (test code = 761) HEMOGLOBIN (BEAKER) (test code = 12.7 GM/DL 11.2-15.7 410) HEMATOCRIT (BEAKER) (test code = 38.4 % 34.1-44.9 411) MEAN CORPUSCULAR VOLUME (BEAKER) 90 fL 79-95 (test code = 753) MEAN CORPUSCULAR HEMOGLOBIN 29.7 pg 25.6-32.2 (BEAKER) (test code = 751) MEAN CORPUSCULAR HEMOGLOBIN CONC 33.1 GM/DL 32.2-35.5 (BEAKER) (test code = 752) RED CELL DISTRIBUTION WIDTH 12.4 % 11.7-14.4 (BEAKER) (test code = 412) PLATELET COUNT (BEAKER) (test 270 K/CU MM 150-450 code = 756) MEAN PLATELET VOLUME (BEAKER) 9.7 fL 9.4-12.3 (test code = 754) NUCLEATED RED BLOOD CELLS 0 /100 WBC 0-0 (BEAKER) (test code = 413) NEUTROPHILS RELATIVE PERCENT 63 % (BEAKER) (test code = 429) LYMPHOCYTES RELATIVE PERCENT 23 % (BEAKER) (test code = 430) MONOCYTES RELATIVE PERCENT 9 % (BEAKER) (test code = 431) EOSINOPHILS RELATIVE PERCENT 4 % (BEAKER) (test code = 432) BASOPHILS RELATIVE PERCENT 1 % (BEAKER) (test code = 437) NEUTROPHILS ABSOLUTE COUNT 4.60 K/ L 1.56-6.13 (BEAKER) (test code = 670) LYMPHOCYTES ABSOLUTE COUNT 1.70 K/ L 1.18-3.74 (BEAKER) (test code = 414) MONOCYTES ABSOLUTE COUNT (BEAKER) 0.63 K/ L 0.24-0.36 H (test code = 415) EOSINOPHILS ABSOLUTE COUNT 0.26 K/ L 0.04-0.36 (BEAKER) (test code = 416) BASOPHILS ABSOLUTE COUNT (BEAKER) 0.07 K/ L 0.01-0.08 (test code = 417) IMMATURE GRANULOCYTES-RELATIVE 0.10 % 0.00-1.00 PERCENT (BEAKER) (test code = 2801) POCT URINALYSIS W SPECIFIC [id number] 19:01:00 Test Item Value Reference Range Interpretation Comments POCT U SP GRAV (test 1.025 mg/dl 1.005-1.025 code = 3255) POCT PH U (test code = 5 mg/dl 5-8 3254) POCT U LEUK EST (test + Negative - code = 3263) Negative POCT U NIT (test code negative Negative - = 3262) Negative POCT U PROT (test code 30 Negative - = 3259) Negative POCT U GLU (test code normal Negative - = 3256) Negative POCT U KETONE (test ++mod Negative - code = 3258) Negative POCT U UROBILI (test normal 0.2-1 code = 3260) POCT U BILI (test code negative Negative - = 3261) Negative POCT U BLD (test code negative Negative - = 3257) Negative POCT U COLOR (test dark yellow code = 3266) POCT U APPEAR (test clear code = 3267) TONY (test code = TONY) accurate development and interpretation of all internal controls Lab Interpretation Abnormal (test code = 26218-2) [facility] URINALYSIS W SPECIFIC [id number] 19:01:00 Test Item Value Reference Range Interpretation Comments POCT U SP GRAV (test 1.025 mg/dl 1.005-1.025 code = 3255) POCT PH U (test code = 5 mg/dl 5-8 3254) POCT U LEUK EST (test + Negative - code = 3263) Negative POCT U NIT (test code negative Negative - = 3262) Negative POCT U PROT (test code 30 Negative - = 3259) Negative POCT U GLU (test code normal Negative - = 3256) Negative POCT U KETONE (test ++mod Negative - code = 3258) Negative POCT U UROBILI (test normal 0.2-1 code = 3260) POCT U BILI (test code negative Negative - = 3261) Negative POCT U BLD (test code negative Negative - = 3257) Negative POCT U COLOR (test dark yellow code = 3266) POCT U APPEAR (test clear code = 3267) TONY (test code = TONY) accurate development and interpretation of all internal controls Lab Interpretation Abnormal (test code = 07864-4) [facility] METABOLIC PANEL (NA, K, CL, CO2, GLUCOSE, BUN, CREATININE, CA)2022-12-03 23:14:33 Test Item Value Reference Range Interpretation Comments NA (test code = 141 mmol/L 135-145 6482710493) K (test code = 3.8 mmol/L 3.5-5.0 8092184874) CL (test code = 104 mmol/L 98-108 9757942599) CO2 TOTAL (test code 23 mmol/L 23-31 = 0152513624) AGAP (test code = 14 2-16 0876329475) BUN (test code = 10 mg/dL 7-23 3951369632) GLUCOSE (test code = 88 mg/dL 70-110 2189132650) CREATININE (test code 0.72 mg/dL 0.50-1.04 = 8085580677) CALCIUM (test code = 9.6 mg/dL 8.6-10.6 5227781583) eGFR (test code = 90.7 mL/min/1.73m2 0221155581) TONY (test code = TONY) Association of Glomerular Filtration Rate (GFR) and Staging of Kidney Disease* + + +- +| GFR (mL/min/1.73 m2) ?| With Kidney Damage ?| ?Without Kidney Damage+ ------+ ----+ ------+| ?>90 ?| ?Stage one ?| ? Normal ?+ -+ + -+| ?60-89 ?| ?Stage two ?| ? Decreased GFR ? + + +- +| ?30-59 ?| ?Stage three ?| ? Stage three ? + + +- +| ?15-29 ?| ?Stage four ? | ? Stage four ?+ -+ + -+| ?<15 (or dialysis) ? ?| ?Stage five ? | ? Stage five ?+ -+ + -+ *Each stage assumes the associated GFR level [...] or urine or abnormalities in imaging tests). [facility] WITH [id number] 23:02:32 Test Item Value Reference Range Interpretation Comments WBC (test code = 7.72 See_Comment [Automated message] 5691-2) The system Weeb[employer] generated this result transmitted ref erence range: 4.30 - 1 1.10 10*3/?L. The re ference range was not u sed to interpret this result as normal/abnor mal. RBC (test code = 4.45 See_Comment [Automated message] 849-8) The system [employer]eb[employer] generated this result transmitted ref erence range: 3.93 - 5 .25 10*6/?L. The re ference range was not u sed to interpret this result as normal/abnor mal. HGB (test code = 13.6 g/dL 11.6-15.0 718-7) HCT (test code = 39.1 % 35.7-45.2 4544-3) MCV (test code = 87.9 fL 80.6-95.5 787-2) MCH (test code = 30.6 pg 25.9-32.8 785-6) MCHC (test code = 34.8 g/dL 31.6-35.1 786-4) RDW-SD (test code 39.9 fL 39.0-49.9 = 39544-8) RDW-CV (test code 12.4 % 12.0-15.5 = 788-0) PLT (test code = 294 See_Comment [Automated message] 004-3) The system Weeb[employer] generated this result transmitted ref erence range: 166 - 35 8 10*3/?L. The re ference range was not u sed to interpret this result as normal/abnor mal. MPV (test code = 9.6 fL 9.5-12.9 42105-2) NRBC/100 WBC (test 0.0 See_Comment [Automat ed message] code = 8234926638) The syste m which generated this result transmitted ref erence range: 0.0 - 10 .0 /100 WBCs. The refer ence range was not u sed to interpret this result as normal/abnor mal. NRBC x10^3 (test See_Comment [Automated message] code = 5829083579) The syste m which generated this result transmitted ref erence range: 10*3/?L. The reference range was not used to interpr et this result as normal/abnormal . GRAN MAT (NEUT) % 68.5 % (test code = 770-8) IMM GRAN % (test 0.30 % code = 7688797418) LYMPH % (test code 18.8 % = 736-9) MONO % (test code 9.7 % = 5905-5) EOS % (test code = 2.1 % 713-8) BASO % (test code 0.6 % = 706-2) GRAN MAT 5.29 10*3/uL 1.88-7.09 x10^3(ANC) (test code = 5047868710) IMM GRAN x10^3 0.00-0.06 (test code = 8429317251) LYMPH x10^3 (test 1.45 10*3/uL 1.32-3.29 code = 731-0) MONO x10^3 (test 0.75 10*3/uL 0.33-0.92 code = 742-7) EOS x10^3 (test 0.16 10*3/uL 0.03-0.39 code = 711-2) BASO x10^3 (test 0.05 10*3/uL 0.01-0.07 code = 704-7) [facility]. METABOLIC PANEL (70170)2022-11-18 21:21:41 Test Item Value Reference Range Interpretation Comments NA (test code = 138 mmol/L 135-145 1384804725) K (test code = 4.2 mmol/L 3.5-5.0 6654322146) CL (test code = 102 mmol/L 98-108 5229299990) CO2 TOTAL (test code 25 mmol/L 23-31 = 8540123363) AGAP (test code = 11 2-16 4379106266) BUN (test code = 11 mg/dL 7-23 8355775139) GLUCOSE (test code = 93 mg/dL 70-110 0405234024) CREATININE (test code 0.75 mg/dL 0.50-1.04 = 1342476721) TOTAL BILI (test code 1.1 mg/dL 0.1-1.1 = 8658723271) CALCIUM (test code = 9.8 mg/dL 8.6-10.6 8800541199) T PROTEIN (test code 7.7 g/dL 6.3-8.2 = 2732197081) ALBUMIN (test code = 4.8 g/dL 3.5-5.0 9816429362) ALK PHOS (test code = 46 U/L 34-122 8517588449) ALTv (test code = 19 U/L 5-35 2-6) AST(SGOT) (test code 26 U/L 13-40 = 0551995568) eGFR (test code = 86.5 mL/min/1.73m2 2608203654) TONY (test code = TONY) Association of Glomerular Filtration Rate (GFR) and Staging of Kidney Disease* + + +- +| GFR (mL/min/1.73 m2) ?| With Kidney Damage ?| ?Without Kidney Damage+ ------+ ----+ ------+| ?>90 ?| ?Stage one ?| ? Normal ?+ -+ + -+| ?60-89 ?| ?Stage two ?| ? Decreased GFR ? + + +- +| ?30-59 ?| ?Stage three ?| ? Stage three ? + + +- +| ?15-29 ?| ?Stage four ? | ? Stage four ?+ -+ + -+| ?<15 (or dialysis) ? ?| ?Stage five ? | ? Stage five ?+ -+ + -+ *Each stage assumes the associated GFR level [...] or urine or abnormalities in imaging tests). [facility] WITH [id number] 21:09:01 Test Item Value Reference Range Interpretation Comments WBC (test code = 9.24 See_Comment [Automated message] 8915-2) The system [employer] generated this result transmitted ref erence range: 4.30 - 1 1.10 10*3/?L. The re ference range was not u sed to interpret this result as normal/abnor mal. RBC (test code = 4.62 See_Comment [Automated message] 671-8) The system [employer] generated this result transmitted ref erence range: 3.93 - 5 .25 10*6/?L. The re ference range was not u sed to interpret this result as normal/abnor mal. HGB (test code = 14.0 g/dL 11.6-15.0 718-7) HCT (test code = 40.3 % 35.7-45.2 4544-3) MCV (test code = 87.2 fL 80.6-95.5 787-2) MCH (test code = 30.3 pg 25.9-32.8 785-6) MCHC (test code = 34.7 g/dL 31.6-35.1 786-4) RDW-SD (test code 39.9 fL 39.0-49.9 = 80683-0) RDW-CV (test code 12.6 % 12.0-15.5 = 788-0) PLT (test code = 317 See_Comment [Automated message] 917-3) The system [employer] generated this result transmitted ref erence range: 166 - 35 8 10*3/?L. The re ference range was not u sed to interpret this result as normal/abnor mal. MPV (test code = 9.6 fL 9.5-12.9 15541-7) NRBC/100 WBC (test 0.0 See_Comment [Automat ed message] code = [id number]) The syste m which generated this result transmitted ref erence range: 0.0 - 10 .0 /100 WBCs. The refer ence range was not u sed to interpret this result as normal/abnor mal. NRBC x10^3 (test See_Comment [Automated message] code = 6962995158) The syste m which generated this result transmitted ref erence range: 10*3/?L. The reference range was not used to interpr et this result as normal/abnormal . GRAN MAT (NEUT) % 61.8 % (test code = 770-8) IMM GRAN % (test 0.20 % code = 5353016636) LYMPH % (test code 27.6 % = 736-9) MONO % (test code 8.1 % = 5905-5) EOS % (test code = 1.7 % 713-8) BASO % (test code 0.6 % = 706-2) GRAN MAT 5.70 10*3/uL 1.88-7.09 x10^3(ANC) (test code = 9091327778) IMM GRAN x10^3 0.00-0.06 (test code = 5442889150) LYMPH x10^3 (test 2.55 10*3/uL 1.32-3.29 code = 731-0) MONO x10^3 (test 0.75 10*3/uL 0.33-0.92 code = 742-7) EOS x10^3 (test 0.16 10*3/uL 0.03-0.39 code = 711-2) BASO x10^3 (test 0.06 10*3/uL 0.01-0.07 code = 704-7) [facility] [id number] 20:55:00 Test Item Value Reference Range Interpretation Comments POCT PREG (test code = 1605) Negative On board controls acceptable with Yes C Line (test code = 3574) POCT PREG LOT # (test code = 3576) [id number] POCT PREG TEST DATE (test 03-14-2024 code = 3576) Lab Interpretation (test code = Normal 81288-2) [facility] SARS-COV-2 ANTIGEN (BINAX NOW)2022-07-04 17:22:00 Test Item Value Reference Range Interpretation Comments POCT SARS-COV-2 ANTIGEN Not Detected Not Detected (test code = 85568-0) On board controls Yes acceptable with C Line (test code = 3574) TONY (test code = TONY) accurate development and interpretation of all internal controls Lab Interpretation Normal (test code = 84242-9) [facility] MOLECULAR [id number] 17:21:56 Test Item Value Reference Range Interpretation Comments POCT Molecular FluA (test code = Negative Negative 41288-2) POCT Molecular FluB (test code = Negative Negative 63240-0) Lab Interpretation (test code = Normal 89829-6) [facility] MOLECULAR [id number] 17:15:24 Test Item Value Reference Range Interpretation Comments POCT Molecular Strep (test code = Negative Negative 92784-4) Lab Interpretation (test code = Normal 04316-5) [facility] MOLECULAR [id number] 17:14:43 Test Item Value Reference Range Interpretation Comments POCT Molecular FluB (test code = Positive Negative A 30272-8) Lab Interpretation (test code = Abnormal 84010-9) [facility] [id number] 05:11:01 Test Item Value Reference Range Interpretation Comments SODIUM (BEAKER) 137 meq/L 136-145 (test code = 381) POTASSIUM (BEAKER) 4.4 meq/L 3.5-5.1 (test code = 379) CHLORIDE (BEAKER) 103 meq/L 98-107 (test code = 382) CO2 (BEAKER) (test 25 meq/L - code = 355) BLOOD UREA NITROGEN 18 [...] S NOT APPLICABLE FOR DIALYSIS PATIEN TS. Orbitread Operator ID - PIAYA LCBC W/PLT COUNT & AUTO [id number] 04:55:58 Test Item Value Reference Range Interpretation [...] 2801) FL, FLUORO, NON-SPECIFIC, UP TO 1 [id number] 11:44:00Reason for exam:- >Lumbar disc herniation [facility] CENTERName: FELICIA CONDE : 1985 Sex: FFINAL REPORT FL, FLUORO, NON-SPECIFIC, UP TO 1 HOUR CLINICAL INDICATION: Lumbar disc herniation COMPARISON: None IMPRESSION: A single lateral view of the lumbar spine is obtained intraoperatively. The surgical screw is seen at the right L5-S1 level posteriorly. Results were communicated to Dr. Dow, who concurred with the above findings. Signed: [facility] Verified Date /Time: 12/17/2021 11:44:43 Reading Location: [facility] Radiology Reading Room C METABOLIC [id number] 05:14:37 Test Item Value Reference Range Interpretation [...] S NOT APPLICABLE FOR DIALYSIS PATIEN TS. Orbitread Operator ID - BENJAMIN WCBC W/PLT COUNT & AUTO [id number] 04:48:53 Test Item Value Reference Range Interpretation [...] SARS-Co V-2 (test code = target nucleic 71341-9) acids are not detected in thi s [...] om SARS-CoV-2 in a nasopharyngeal swab specimen [facility] from individual s suspected of COVID-19 by [...] revoked sooner. Fact Sheet for Healthcare Providers: https://www.GenerationOne/Documents/Xp ert%20Xpress%20SAR S%20CoV-2/Fact%20S heets/302-3802%20S ARS-COV-2%20HEALTH CARE%20PROVIDERS%2 0FACT%20SHEET.pdf Fact Sheet for Healthcare Patients: https://www.GenerationOne/Documents/Xp ert%20Xpress%20SAR S%20CoV-2/Fact%20S heets/302-3801%20S ARS-COV-2%20PATIEN T%20FACT%20SHEET.p df Lab Interpretation Normal (test code = 64866-1) [facility]2021-12-17 00:36:35 Test Item Value Reference Interpretation Comments Range SARS-COV2/RT-PCR Negative Negative The SARS-Co V-2 (test code = target nucleic 41277-1) acids are not detected in thi s [...] om SARS-CoV-2 in a [facility]oph[facility]ab [facility] from individual s suspected of COVID-19 [...] revoked sooner. Fact Sheet for Healthcare Providers: https://www.GenerationOne/Documents/Xp ert%20Xpress%20SAR S%20CoV-2/Fact%20S heets/302-3802%20S ARS-COV-2%20HEALTH CARE%20PROVIDERS%2 0FACT%20SHEET.pdf Fact Sheet for Healthcare Patients: https://www.GenerationOne/Documents/Xp ert%20Xpress%20SAR S%20CoV-2/Fact%20S heets/302-3801%20S ARS-COV-2%20PATIEN T%20FACT%20SHEET.p df Lab Interpretation Normal (test code = 14495-0) [facility]omatic [facility])2021-12-17 00:36:35 Test Item Value Reference Interpretation Comments Range SARS-COV2/RT-PCR Negative Negative The SARS-Co V-2 (test code = target nucleic 49611-3) acids are not detected in thi s [...] revoked sooner. Fact Sheet for Healthcare Providers: https://www.GenerationOne/Documents/Xp ert%20Xpress%20SAR S%20CoV-2/Fact%20S heets/302-3802%20S ARS-COV-2%20HEALTH CARE%20PROVIDERS%2 0FACT%20SHEET.pdf Fact Sheet for Healthcare Patients: https://www.GenerationOne/Documents/Xp ert%20Xpress%20SAR S%20CoV-2/Fact%20S heets/3023801%20S ARS-COV-2%20PATIEN T%20FACT%20SHEET.p df Lab Interpretation Normal (test code = 98827-1) [facility]omatic [facility]2021-12-17 00:36:35 Test Item Value Reference Interpretation Comments Range SARS-COV2/RT-PCR Negative Negative The SARS-Co V-2 (test code = target nucleic 30636-6) acids are not detected in thi s [...] revoked sooner. Fact Sheet for Healthcare Providers: https://www.GenerationOne/Documents/Xp ert%20Xpress%20SAR S%20CoV-2/Fact%20S heets/3023802%20S ARS-COV-2%20HEALTH CARE%20PROVIDERS%2 0FACT%20SHEET.pdf Fact Sheet for Healthcare Patients: https://www.GenerationOne/Documents/Xp ert%20Xpress%20SAR S%20CoV-2/Fact%20S heets/302-3801%20S ARS-COV-2%20PATIEN T%20FACT%20SHEET.p df Lab Interpretation Normal (test code = 08799-6) [facility]Asymptomatic ONLY)2021-12-17 00:36:35 Test Item Value Reference Interpretation Comments Range SARS-COV2/RT-PCR Negative Negative The SARS-Co V-2 (test code = target nucleic 49486-0) acids are not detected in thi s [...] revoked sooner. Fact Sheet for Healthcare Providers: https://www.GenerationOne/Documents/Xp ert%20Xpress%20SAR S%20CoV-2/Fact%20S heets/302-3802%20S ARS-COV-2%20HEALTH CARE%20PROVIDERS%2 0FACT%20SHEET.pdf Fact Sheet for Healthcare Patients: https://www.GenerationOne/Documents/Xp ert%20Xpress%20SAR S%20CoV-2/Fact%20S heets/302-3801%20S ARS-COV-2%20PATIEN T%20FACT%20SHEET.p df Lab Interpretation Normal (test code = 98586-1) [facility]2021-12-17 00:36:35 Test Item Value Reference Range Interpretation Comments SARS-COV2/RT-PCR Negative Negative The SARS-Co V-2 target (test code = nucleic acids a re not 8184737) detected in thi s specimen. Negative result s do not preclude SARS-C oV-2 infection and s hould not be used as the laure e basis for patient managem ent decisions. Nega tive results must be combine d with clinical observ ations, patient history , and epidemiological information. A false negativ e result may occur if a spec imen is improperly gabriella ected, transported or handled. This SARS CoV-2 [...] revoked sooner. Fact Sheet for Healthcare Providers: https://www.[employer].co m/Documents/Xpert%20Xpress%20SARS%20CoV-2/Fact%20Sheets/302-3802%66KZOP-QKM-7%20 HEALTHCARE%20PROVIDERS%20FACT%20SHEET.pdf Fact Sheet for Healthcare Patients: https://www.[employer].CrowdStar/Documents/Xpert%20Xp ress%20SARS%20CoV-2/Fact%20Sheets/302-3801%77TLGG-MKI-6%20PATIENT%20FACT%20SHEET .pdfPregnancy Screen, [id number] 12:02:43 Test Item Value Reference Range Interpretation Comments Preg Test, Ur (test code = 2112-1) Negative Negative Lab Interpretation (test code = Normal 26071-7) [facility] [id number] 12:02:43 Test Item Value Reference Range Interpretation Comments Preg Test, Ur (test code = 2112-1) Negative Negative Lab Interpretation (test code = Normal 31351-8) [facility], [id number] 12:02:43 Test Item Value Reference Range Interpretation Comments Preg Test, Ur (test code = 2112-1) Negative Negative Lab Interpretation (test code = Normal 90927-3) [facility], [id number] 12:02:43 Test Item Value Reference Range Interpretation Comments Preg Test, Ur (test code = 2112-1) Negative Negative Lab Interpretation (test code = Normal 84158-8) [facility] SCREEN, [id number] 12:02:43 Test Item Value Reference Range Interpretation Comments TEST URINE (BEAKER) (test Negative Negative code = 583) BASIC METABOLIC [id number] 04:38:33 Test Item Value Reference Range Interpretation [...] S NOT APPLICABLE FOR DIALYSIS PATIEN TS. Orbitread Operator ID - SETH MPT/[id number] 04:34:08 Test Item Value Reference Range Interpretation [...] mechanical heart valves.CBC W/PLT COUNT & AUTO [id number] 04:23:27 Test Item Value Reference Range Interpretation [...] = 2801) RAD, CHEST, 1 VIEW, NON [id number] 14:14:00Reason for exam:- >baselineShould this be performed at the bedside?->Yes [facility] 1985 Sex: FFINAL REPORT INDICATION: baseline COMPARISON: None TECHNIQUE: Single frontal view of the chest. FINDINGS: Lungs and pleura: Clear lungs. No effusion.Heart and mediastinum: Normal heart size. Unremarkable mediastinal contours.Osseous structures: No acute abnormality.Other: None. IMPRESSION: No acute intrathoracic abnormality. Signed: Felicia [place] Verified Date/Time: 12/15/2021 14:14:14 HEPATIC FUNCTION [id number] 05:23:41 Test Item Value Reference Range Interpretation [...] (test code = 27 U/L 6-55 347) Orbitread Operator ID - PIAYA LBASIC METABOLIC [id number] 05:23:40 Test Item Value Reference Range Interpretation [...] S NOT APPLICABLE FOR DIALYSIS PATIEN TS. Orbitread Operator ID - PICARLOS LCBC W/PLT COUNT & AUTO [id number] 04:43:17 Test Item Value Reference Range Interpretation [...] PERCENT (BEAKER) (test code = 2801) SARS-COV2/RT-PCR ([facility])2021-12-12 02:29:42 Test Item Value Reference Range Interpretation Comments SARS-COV2/RT-PCR (test code = Negative Negative 3483542) Negative result for this test determines that [...] 564(g) of the Act.Testing was performed using [employer] SARS-CoV-2 assay.Fact Sheet for Healthcare Providers:https://www.Zhitu.kaufman/major/RT SARS-CoV-2 HCP Fact Sheet 51- 200267.pdfFact Sheet for Healthcare Patients:https://www.Zhitu.kaufman/major/RT SARS-CoV-2 Patient Fact Sheet EN 51-315569D2.pdfMR, SPINE, LUMBAR, WITHOUT [id number] 09:13:00Unlisted Reason for Exam - Click Yes and Enter Reason Below->YesUnlisted Reason for Exam->DischerniationDoes the patient have an implanted electronic device?->No [facility] 1985 Sex: [...] L5 and superior S1 endplates.. Signed: Parrish Buchananeport Verified Date/Time: 12/11/2021 09:13:09 Reading Location: [facility] B1 C013V Neuro Reading Room COMP. METABOLIC PANEL (65232)2021-11-06 16:06:35 Test Item Value Reference Range Interpretation Comments NA (test code = 138 mmol/L 135-145 2824932671) K (test code = 4.2 mmol/L 3.5-5.0 3178964063) CL (test code = 102 mmol/L 98-108 9740967698) CO2 TOTAL (test code = 26 mmol/L 23-31 0353879687) AGAP (test code = 2-16 4332265632) BUN (test code = 6 mg/dL 7-23 L 2419531461) GLUCOSE (test code = 116 mg/dL 70-110 H 8171877339) CREATININE (test code = 0.62 mg/dL 0.50-1.04 2072254741) TOTAL BILI (test code = 0.7 mg/dL 0.1-1.8 1559887600) CALCIUM (test code = 9.5 mg/dL 8.6-10.6 5663563113) T PROTEIN (test code = 7.2 g/dL 6.3-8.2 4648772262) ALBUMIN (test code = 4.4 g/dL 3.5-5.0 4251504129) ALK PHOS (test code = 67 U/L 34-122 6948863227) ALTv (test code = 15 U/L 5-35 1742-6) AST(SGOT) (test code = 22 U/L 13-40 2466625659) eGFR (test code = mL/min/1.73m2 4430060435) TONY (test code = TONY) Association of [...] tests). Lab Interpretation Abnormal (test code = 85576-2) [facility] 16:06:15 Test Item Value Reference Range Interpretation Comments LIPASE (test code = 8262079418) 41 U/L 0-220 Lab Interpretation (test code = Normal 29476-7) [facility] CenterCB WITH [id number] 15:51:56 Test Item Value Reference Range Interpretation Comments WBC (test code = See_Comment [Automated message] 6690-2) The system Weebly generated this result transmitted ref erence range: 4.30 - 1 1.10 10*3/?L. The re ference range was not u sed to interpret this result as normal/abnor mal. RBC (test code = See_Comment [Automated message] 789-8) The system Weebly generated this result transmitted ref erence range: [...] RDW-SD (test code 44.0 fL 39.0-49.9 = 36054-4) RDW-CV (test code 14.1 % 12.0-15.5 = 788-0) PLT (test code = See_Comment [Automated message] 777-3) The system whic h generated this result transmitted ref erence range: 166 - 35 8 10*3/?L. The re ference range was not u sed to interpret this result as normal/abnor mal. MPV (test code = 10.0 fL 9.5-12.9 50358-9) NRBC/100 WBC (test See_Comment [Automat ed message] code = 5907540507) The syste m which generated this result transmitted ref erence range: 0.0 - 10 .0 /100 WBCs. The refer ence range was not u sed to interpret this result as normal/abnor mal. NRBC x10^3 (test <0.01 See_Comment [Automated message] code = 3523302933) The syste m which generated this result transmitted ref erence range: 10*3/?L. The reference range was not used to interpr et this result as normal/abnormal . GRAN MAT (NEUT) % 72.0 % (test code = 770-8) IMM GRAN % (test 0.40 % code = 9953507429) LYMPH % (test code 21.6 % = 736-9) MONO % (test code 4.9 % = 5905-5) EOS % (test code = 0.7 % 713-8) BASO % (test code 0.4 % = 706-2) GRAN MAT 4.82 10*3/uL 1.88-7.09 x10^3(ANC) (test code = 7773814208) IMM GRAN x10^3 0.03 10*3/uL 0.00-0.06 (test code = 2458486766) LYMPH x10^3 (test 1.45 10*3/uL 1.32-3.29 code = 731-0) MONO x10^3 (test 0.33 10*3/uL 0.33-0.92 code = 742-7) EOS x10^3 (test 0.05 10*3/uL 0.03-0.39 code = 711-2) BASO x10^3 (test 0.03 10*3/uL 0.01-0.07 code = 704-7) [facility] CenterPONJ [id number] 15:17:00 Test Item Value Reference Range Interpretation Comments POCT PREG (test code = 1605) negative On board controls acceptable with present C Line (test code = 3574) POCT PREG LOT # (test code = 3575) [id number] POCT PREG TEST DATE (test 04/08/2023 code = 3576) Lab Interpretation (test code = Normal 50550-9) [facility] MOLECULAR [id number] 20:28:21 Test Item Value Reference Range Interpretation Comments POCT Molecular Strep (test code = Positive Negative A 99552-5) Lab Interpretation (test code = Abnormal 00347-6) [facility] CenterDR[facility]BU[facility] [id number] 20:44:00 Test Item Value Reference Range Interpretation [...] = PHENCU) 25 ng/m L COMPREHENSIVE METABOLIC [id number] 16:55:00 Test Item Value Reference Range Interpretation [...] units/L 46-116 N code = ALKP) URIC [id number] 16:55:00 Test Item Value Reference Range Interpretation Comments URIC ACID (test code = URIC) 6.2 mg/dL 2.6-6.0 H LACTIC DEHYDROGENASE(LDH)2019-11-16 16:55:00 Test Item Value Reference Range Interpretation Comments LACTIC DEHYDROGENASE(LDH) (test 160 units/L 81-234 N code = LDH) UA RFLX MICR CULT IF [id number] 16:41:00 Test Item Value Reference Range Interpretation [...] SEEN Indication for culture: Suprapubic PainCBC W/AUTO [id number] 16:35:00 Test Item Value Reference Range Interpretation [...] NORMAL code = PLTMR) Coronavirus 2019 nCoV [id number] 11:09:00 Test Item Value Reference Range Interpretation Comments Coronavirus 2019 nCoV Negative Negative RESUL TS CALLED TO Bedside (test code = Adesuyi ,AREAD BACK & [id number]) CONFIRMED? yes BY F.LAB.MAF1 02/26 110 This result fountain s not rule out [...] AN EMERGENCY USE AUTHORIZATION F [facility] COMPREHENSIVE METABOLIC [id number] 07:48:00 Test Item Value Reference Range Interpretation [...] 81 units/L 46-116 N code = ALKP) [id number] 07:48:00 Test Item Value Reference Range Interpretation Comments MAGNESIUM (test code = MAG) 2.7 mg/dL 1.8-2.4 H CBC W/AUTO [id number] 07:08:00 Test Item Value Reference Range Interpretation [...] NORMAL NORMAL code = PLTMR) B-TYPE NATRIURETIC [id number] 00:38:00 Test Item Value Reference Range Interpretation Comments B-TYPE NATRIURETIC PEPTIDE (test 542.13 pg/mL 0-100 H code = BNP) Comments to Websphere Developer: Clean CatchSpecimen Comment: Clean Catch- CT HEAD/BRAIN W/O [id number] 00:31:00 Patient Name: FELICIA YORK Unit No: [id number] EXAMS: CPT CODE: [id number] CT HEAD/BRAIN W/O CONT 97602 CT HEAD WITHOUT CONTRAST DATED 10/16/2019. INDICATION: [...] acute intracranial ischemia, acute intracranial hemorrhage or intracranialmass. SL: 131 at 0031 Reported and signed by: Jaiden Durham MD [facility] NAME: FELICIA YORK Radiology Department PHYS: Gian Kang [address] : 1985 AGE: 33 SEX: F [place]olyn Mei77054 LOC: DonovanERS PHONE #: [phone] EXAM DATE: 10/15/2019 STATUS: REG ER FAX #: [phone] RAD NO: Page 1 Signed Report 1 Patient Name: FELICIA YORK Unit No: [id number] EXAMS: CPT CODE: [id number] CT HEAD/BRAIN W/O CONT 40126 (Continued) CC: Sanna Hoffman Technologist: ROB RAO, CT, RT CTDI: 60.16 DLP: 1012.10 Trnscrbd D/ (003) [facility] NAME: FELICIA YORK Radiology Department PHYS: Anthony Kangmandy Bedoya [address] : 1985 AGE: 33 SEX: F [place] [address] LOC: DonovanERS PHONE #: [phone] EXAM DATE: 10/15/2019 STATUS: REG ER FAX #: [phone] RAD NO: Page 2 Signed Report 1 Patient Name: FELICIA YORK Unit No: [id number] EXAMS: CPT CODE: [id number] CT HEAD/BRAIN W/O CONT 95729 (Continued) Orig Print D/T: S: 10/16/2019 (003) [facility] NAME: FELICIA YORK Radiology Department PHYS: Mariama KennedyGian Bedoya [address] : 1985 AGE: 33 SEX: F [place] [address] LOC: DonovanERS PHONE #: [phone] EXAM DATE: 10/15/2019 STATUS: REG ER FAX #: [phone] RAD NO: Page 3 Signed Report 1UR PROTEIN/CREATININE [id number] 00:23:00 Test Item Value Reference Range Interpretation Comments UR PROTEIN RANDOM (test code = 14.0 mg/dL PROTU) UR CREATININE RANDOM (test 74.0 mg/dL code = CREATU) PROTEIN/CREATININE RATIO (test 180.0 mg/gcrea <200 code = P/CRATIO) - XR CHEST 2 [id number] 00:16:00 Patient Name: FELICIA YORK Unit No: [id number] EXAMS: CPT CODE: [id number] XR CHEST 2 V 43585 EXAM: CR, XR chest 2 views: 10/15/2019, [...] or less likely atelectasis orinterstitial infiltrates. SL:[JSYED-H] [id number] Reported and signed by: Garrett Cabezas M.D. CC: Sanna Hoffman Technologist: Melinda Nesbitt RTTrnscrbd D/ (0016) t.OCTAVIA.JS38 Orig Print D/T: S: 10/16/2019 (0019) [facility] NAME: FELICIA YORK Radiology Department PHYS: Gian Kang [address] : 1985 AGE: 33 SEX: F [place], [place] [address] LOC: F.ERS PHONE #: [phone] EXAM DATE: 10/15/2019 STATUS: REG ER FAX #: [phone] RAD NO: Page 1 Signed ReportDRUGS OF ABUSE [id number] 00:05:00 Test Item Value Reference Range Interpretation [...] ECHO .READ BACK & CONFIRME D? [facility] 10/15/19 7964. DETECTION CUT O FF: 100 ng/mLPrevio usly reported result : POSITIVE Edited by: MIKEAmor on 10/16/19:0005OP IAQLU prev. reported as:POSITIVE H . RESULTS CALLED TO .. READ BACK & CONFIRMED? Y. B Y DonovanLAB.[facility] 10/14 885. UR PHENCYCLIDINE (PCP) NEGATIVE NEGATIVE DETEC TION CUT OFF: (test code = PHENCU) 25 ng/m L Comments to Websphere Developer: Clean CatchSpecimen Comment: Clean CatchDRUGS OF ABUSE [id number] 00:04:00 Test Item Value Reference Range Interpretation [...] = OPIAQLU) .READ BACK & CONFIRMED? Y.[facility] 10/14 255. DETECTION CUT OFF: 100 ng/mL UR PHENCYCLIDINE (PCP) NEGATIVE NEGATIVE DETEC TION CUT OFF: (test code = PHENCU) 25 ng/m L Comments to Websphere Developer: Clean CatchSpecimen Comment: Clean CatchCOMPREHENSIVE METABOLIC [id number] 23:58:00 Test Item Value Reference Range Interpretation [...] 46-116 N code = ALKP) Comments to Websphere Developer: Clean CatchSpecimen Comment: Clean CatchCREATINE KINASE (CK)2019-10-15 23:58:00 Test Item Value Reference Range Interpretation Comments CREATINE KINASE (CK) (test code = 81 Units/L 26-192 N CK) Comments to Websphere Developer: Clean CatchSpecimen Comment: Clean CatchLIPASE 2019-10-15 23:58:00 Test Item Value Reference Range Interpretation Comments LIPASE (test code = LIP) 48 units/L 73-393 L Comments to Websphere Developer: Clean CatchSpecimen Comment: Clean CatchMAGNESIUM 2019-10-15 23:58:00 Test Item Value Reference Range Interpretation Comments MAGNESIUM (test code = MAG) 1.7 mg/dL 1.8-2.4 L Comments to Websphere Developer: Clean CatchSpecimen Comment: Clean CatchTHYROID STIMULATING [id number] 23:58:00 Test Item Value Reference Range Interpretation Comments THYROID STIMULATING 0.77 0.36-3.74 N Test Per formed in HORMONE (test code = MicroIn ternational Units/mL TSH) Comments to Websphere Developer: Clean CatchSpecimen Comment: Clean CatchTROPONIN-I 2019-10-15 23:58:00 Test Item Value Reference Range Interpretation Comments TROPONIN-I (test code = TROPI) 0.043 ng/mL <0.056 N Comments to Websphere Developer: Clean CatchSpecimen Comment: Clean CatchPROTHROMBIN [id number] 23:41:00 Test Item Value Reference Range Interpretation Comments PROTHROMBIN TIME PATIENT (test code 10.8 secs 10.4-12.4 N = PTP) Comments to Websphere Developer: Clean CatchSpecimen Comment: Clean CatchIS PATIENT ON ANTICOAGULANTS ? NINTERNATIONAL NORMAL [id number] 23:41:00 Test Item Value Reference Range Interpretation [...] stemic embolism. 3.0 - 3.5 Comments to Websphere Developer: Clean CatchSpecimen Comment: Clean CatchIS PATIENT ON ANTICOAGULANTS ? NTHROMBOPLASTIN TIME [id number] 23:41:00 Test Item Value Reference Range Interpretation Comments THROMBOPLASTIN TIME PARTIAL (test 30.1 secs 22-38 N code = PTT) Comments to Websphere Developer: Clean CatchSpecimen Comment: Clean CatchIS PATIENT ON ANTICOAGULANTS ? ND-DIMER [id number] 23:41:00 Test Item Value Reference Range Interpretation [...] is 98% for rulingout DVT. Comments to Websphere Developer: Clean CatchSpecimen Comment: Clean CatchIS PATIENT ON ANTICOAGULANTS ? NUA RFLX MICR CULT IF [id number] 23:36:00 Test Item Value Reference Range Interpretation [...] = MUCU) RARE NONE SEEN Comments to Websphere Developer: Clean CatchSpecimen Comment: Clean CatchIndication for culture: Dysuria/FrequencyCBC W/AUTO [id number] 23:29:00 Test Item Value Reference Range Interpretation [...] NORMAL NORMAL code = PLTMR) Comments to Websphere Developer: Clean CatchSpecimen Comment: Clean CatchFALLOPIAN TUBE,[id number] 13:52:00 RUN DATE: 10/08/19 [facility] PAGE 1 RUN TIME: 1734 Specimen Inquiry RUN USER: INTERFACE --[facility] [id number] LOC: SOL U #: [id number] AGE/SX: 33/F ROOM: 2053 RE10/06/19REG DR: Sanna Hoffman MD : [birth year] BED: A DIS: STATUS: ADM IN TLOC: SPEC #: [id number] RECD: 10/07/19-1010 STATUS: BRENDA RE #: [id number] GABRIELLA: 10/07/19- SUBM DR: Sanna Hoffman MD ENTERED: 10/07/19-1011 SP TYPE: FALLBX OTHR DR: ORDERED: LEVEL IV CODES: L26069 - FALLOPIAN TUBE PROCEDURES: LEVEL IV (Incomp lete) TISSUES: FALLOPIAN TUBE, NOS - RIGHT AND LEFT FALLOPIAN TUBE CLINICAL HISTORY Not provided (wpd) FINAL DIAGNOSIS Right fallopian tube, tubal ligation: - fallopian tube with complete surgical transection, no pathologic alteration Left fallopian tube, tubal ligation: - fallopian tube with completesurgical transection, no pathologic alteration CPT code(s): 22935 x2 josé miguelg/kr GROSS DESCRIPTION ANATOMIC SOURCE OF TISSUE (per Requisition): Right and left fallopian tubes (received in 2 containers) Eachspecimen is labeled with the patient's name and medical record number. Specimen #1 is designated "right fallopian tube" and consists of a 5.5 cm in length and 0.6 cm in diameter fimbriated fallopian tube. The serosa is pink-purple and hyperemic. The lumen is pinpoint. Biomass Production Manager sections are submitted as A1. Specimen #2 is designated "left fallopian tube" and consists of a 4.5 cm in length and 0.6 cm in diameter fimbriated fallopian tube. The serosa is pink-purple and hyperemic. The lumen is pinpoint. Biomass Production Manager sections are submitted as B1. jovita/wpd 10/07/19 CONTINUED ON NEXT PAGE ---- --------RUN DATE: 10/08/19 [facility] PAGE 2 RUN TIME: 5184 Specimen Inquiry RUN USER: INTERFACE SP EC #: [id number]: FELICIA YORK #[id number] (Continued) MICROSCOPIC DESCRIPTION Specimen #1 - the fallopian tube architecture is intact. The lumen is not dilated. A completely transected segment of fallopian tube is present. Specimen #2 - the fallopian tube architecture is intact. The lumen is not dilated. A completely transected segment of fallopian tube is present. kaylene/roger Signed Tiny Jurado 10/08/19 1352 END OF REPORT HGB [id number] 05:07:00 Test Item Value Reference Range Interpretation Comments HEMOGLOBIN (test code = HGB) 9.3 g/dL 10.7-13.9 L HEMATOCRIT (test code = HCT) 28.3 % 32.1-42.1 L Coronavirus 2019 nCoV [id number] 16:02:00 Test Item Value Reference Range Interpretation Comments Coronavirus 2019 nCoV Negative Negative RESUL TS CALLED TO Bedside (test code = BERENICE/A PUREAD BACK & [id number]) CONFIRMED? CHAI ManLAB.GF 10/06/19 1602 T his [...] AUTHORIZATION F ROM FDA AG HEPATITIS B [id number] 07:07:00 Test Item Value Reference Range Interpretation Comments AG HEPATITIS B SURFACE (test code NONREACTIVE NONREACTIVE = HBSAG) AB HEPATITIS C [id number] 07:07:00 Test Item Value Reference Range Interpretation Comments AB HEPATITIS C (test code = NONREACTIVE NONREACTIVE HCVAB) SIGNAL TO CUTOFF (test code = 0.13 <0.80 N CUTOFF) AB [id number] 07:07:00 Test Item Value Reference Range Interpretation Comments AB TREPONEMA (test code = TREPAB) NONREACTIVE NONREACTIVE AG HEPATITIS B [id number] 06:50:00 Test Item Value Reference Range Interpretation Comments AG HEPATITIS B SURFACE (test code NONREACTIVE NONREACTIVE = HBSAG) AB HEPATITIS C [id number] 06:50:00 Test Item Value Reference Range Interpretation Comments AB HEPATITIS C (test code = HCVAB) NONREACTIVE SIGNAL TO CUTOFF (test code = CUTOFF) <0.80 AB [id number] 06:50:00 Test Item Value Reference Range Interpretation Comments AB TREPONEMA (test code = TREPAB) NONREACTIVE NONREACTIVE CBC W/AUTO [id number] 02:32:00 Test Item Value Reference Range Interpretation [...] (test NORMAL NORMAL code = PLTMR) URINALYSIS [id number] 23:53:00 Test Item Value Reference Range Interpretation [...] = MUCU) 4+ NONE SEEN Comments to Websphere Developer: CORETTA RICHARDSON SAMPLE: CLEAN [id number] 14:53:00 Test Item Value Reference Range Interpretation Comments CREATININE (test code = CREAT) 0.9 mg/dL 0.5-1.0 N SGOT/[id number] 14:53:00 Test Item Value Reference Range Interpretation Comments SGOT/AST (test code = AST) 46 units/L 15-37 H SGPT/[id number] 14:53:00 Test Item Value Reference Range Interpretation Comments SGPT/ALT (test code = ALT) 39 units/L 12-78 N URINALYSIS [id number] 14:28:00 Test Item Value Reference Range Interpretation [...] SEEN URINE SAMPLE: CLEAN CATCHComment MACCBC W/AUTO [id number] 14:24:00 Test Item Value Reference Range Interpretation [...] NORMAL NORMAL code = PLTMR) URINALYSIS W/O [id number] 16:36:00 Test Item Value Reference Range Interpretation Comments UA GLUCOSE DIPSTICK (test code = NEGATIVE NEGATIVE DGLUU) UA KETONE DIPSTICK (test code = TRACE NEGATIVE KETU) UA PROTEIN DIPSTICK (test code = NEGATIVE NEGATIVE PROU) IS NURSE PERFORMING TEST? SHAMEKA PROTEIN/CREATININE [id number] 16:36:00 Test Item Value Reference Range Interpretation Comments UR PROTEIN RANDOM (test code = 37.6 mg/dL PROTU) UR CREATININE RANDOM (test 290.4 mg/dL code = CREATU) PROTEIN/CREATININE RATIO (test 120.0 mg/gcrea <200 code = P/CRATIO) IS NURSE PERFORMING TEST? [id number] 16:16:00 Test Item Value Reference Range Interpretation Comments CREATININE (test code = CREAT) 0.7 mg/dL 0.5-1.0 N SGOT/[id number] 16:16:00 Test Item Value Reference Range Interpretation Comments SGOT/AST (test code = AST) 15 units/L 15-37 N SGPT/[id number] 16:16:00 Test Item Value Reference Range Interpretation Comments SGPT/ALT (test code = ALT) 16 units/L 12-78 N CBC W/AUTO [id number] 15:58:00 Test Item Value Reference Range Interpretation [...] NORMAL NORMAL code = PLTMR) URINALYSIS W/O [id number] 15:43:00 Test Item Value Reference Range Interpretation Comments UA GLUCOSE DIPSTICK (test code = NEGATIVE NEGATIVE DGLUU) UA KETONE DIPSTICK (test code = TRACE NEGATIVE KETU) UA PROTEIN DIPSTICK (test code = NEGATIVE NEGATIVE PROU) IS NURSE PERFORMING TEST? SHAMEKA PROTEIN/CREATININE [id number] 15:43:00 Test Item Value Reference Range Interpretation Comments UR PROTEIN RANDOM (test code = mg/dL PROTU) UR CREATININE RANDOM (test code = mg/dL CREATU) PROTEIN/CREATININE RATIO (test code mg/gcrea <200 = P/CRATIO) IS NURSE PERFORMING TEST? SHAMEKA PROTEIN [id number] 13:08:00 Test Item Value Reference Range Interpretation Comments UR PROTEIN RANDOM 21.8 mg/dL (test code = PROTU) UR PROTEIN 24HR 305 mg/24HR 20-150 HH RESULTS CALL ED TO (test code = DONNA NUGENT AD BACK HRNG63M) & CONFIRMED? MAURICIO ClearyBY F.LAB.ELB1 08/07 1308.Units for 24 HR Urine Protein h ave changed: New Un its = MG/24HR UR VOLUME (test code 1400 ML = VOL) COMPREHENSIVE METABOLIC [id number] 15:51:00 Test Item Value Reference Range Interpretation [...] 46-116 N code = ALKP) CBC W/AUTO [id number] 15:25:00 Test Item Value Reference Range Interpretation [...] NORMAL code = PLTMR) UR CREATININE CLEARANCE [id number] 16:27:00 Test Item Value Reference Range Interpretation Comments CREATININE CLEARANCE RESULT (test 180 ml/min 70-120 H code = CREATCLR) CREATININE (test code = CREAT) 0.6 mg/dL 0.5-1.0 N UR CREATININE RANDOM (test code = 120.2 mg/dL CREATU) UR VOLUME (test code = VOL) 1300 ML UR PROTEIN [id number] 16:27:00 Test Item Value Reference Range Interpretation Comments UR PROTEIN RANDOM 23.5 mg/dL (test code = PROTU) UR PROTEIN 24HR (test 306 mg/24HR 20-150 HH RESULT S CALLED TO code = TNTC34T) APRIL.READ BACK & CONFIRMED? YES. BY CHRISTINA 12/26 2300.Units for 24 HR Urine Protein h ave changed: New Un its = MG/24HR AMNISURE (ROM) [id number] 15:13:00 Test Item Value Reference Range Interpretation Comments AMNISURE (ROM) TEST (test code = NON-RUPTURED NON-RUPTURE AMNI) : *Amnisure QC OK? YES- US FET BIO PH IN W/O [id number] 10:31:00 Patient Name: FELICIA YORK Unit No: [id number] EXAMS: CPT CODE: [id number] US FET BIO PH IN W/O [id number] [facility] [address], [place] [address] OBSTETRICAL BIOPHYSICAL ULTRASOUND REPORT Pat. Name: FELICIA YORK Pat. No: [id number] Study Date: 08/14/2019 9:40am , Age: 05 1985, 33 Pregnancies: 6,Para 1132 LMP: Unknown GA by 1st: 28w6d GA by US: 28w5d GA Selected: 28w6d (From First S) BETSY: 10/31/2019 Referring MD: Sanna Hoffman [employer] Publishing Agent: Shante Lazo RDMS CPT4: USBPPWONST Hist/Ind: HTNSCAN 3 MEASUREMENTS AGEFETAL GROWTH EVALUATION Measurement GA Range Srce %for GA Ratios ----- ---- ------- BPD 7.2 cm 29w1d (55e0s-08x7e) Hadl BPD 57% FL/BPD 0.75 (0.71 - 0.87) HC 27.6 cm 29w6d (95c6a-09k7k) Hadl HC 71% FL/AC 0.21 (0.20 - 0.24) APD 8.2 cm APD HC/AC 1.10 (0.99 - 1.18) TAD 7.7 cm TAD CI 0.73 (0.70 - 0.86) AC 25.0 cm 29w1d (27w0d- 31w2d) Hadl AC 56% FL 5.4 cm 28w0d (97h4f-95m5x) Hadl FL 33% HL 5.0 cm 29w2d (30y9y-64l6a) Gian HL 56% GA for sonogram 28w5d (89o0g-01g6x) Weight Estimate: based on (BPD,HC,AC,FL) Hadlock Weight: 1320 gm (9804-2168) Hadlo : 2lbs, 14oz Normal: 1287 gm (873-1857) Brenne Wt% 52% for 28.9 wks Cervical Length: 3.9 cm Heart Rate: 140 bpm Amniotic Fluid Index: 17.2cm (09.2- 23.1) Q1: 3.3cm Q2: 2.9cm Q3: 6.5cm Q4: 4.4cm Biophysical Profile: 01/14 Breathin Tone: 2 Movement: 2 AFV: 2 CLINICAL SUMMARY Type of Gestation: Heredia Intrauterine pregnancyin transverse HEAD RIGHTpresentation. size is appropriate for gestational age. growth: Consistent with normal growth motion and organs seen: heart motion seen body and limb movements observed tone noted breathing movements observed [facility] NAME: FELICIA YORK Radiology Department PHYS: Sanna Cavanaugh MD [address] :1985 AGE: 33 SEX: F [place], [place] [address] LOC: Donovan3036 A PHONE #: [phone] EXAM DATE: 08/14/2019 STATUS: ADM IN FAX #: [phone] RAD NO: Page 1 Signed Report (CONTINUED) Patient Name: FELICIA YORK Unit No: [id number] EXAMS: CPT CODE: [id number] FET BIO PH IN W/O NST 26441 (Continued) Placental location: Anterior Placental maturity : Grade 1 There is no evidence of placenta previa. Amniotic fluid volume is normal. Uterus and adnexa: No significant abnormality isseen. Thank you for allowing us to participate in the care of this patient. Janie Lovell M.D. Electronic Signature 08/14/2019 10:31am at 1031 Reported and signed by: Janie Lovell MD CC: Sanna Hoffman Technologist: Milagro Lazo RDMS Probe: Trnscrbd D/ (1031) Jeffry Orig Print D/T: S: 08/16/2019 (1155) [facility] NAME: FELICIA YORK Radiology Department PHYS: Sanna Cavanaugh MD [address] : 1985 AGE: 33 SEX: [place] [address] LOC:Dhara6 A PHONE #: [phone] EXAM DATE: 08/14/2019 STATUS: ADM IN FAX #: [phone] RAD NO: Page2 Signed Report Patient Name: FELICIA YORK Unit No: [id number] EXAMS: CPT CODE: [id number] US FET BIO PH IN W/O NST 43237 (Continued) [facility] NAME: FELICIA YORK Radiology Department PHYS: Sanna Cavanaugh MD [address] : 1985 AGE: 33 SEX: F [place] [address] LOC: Dhara6 A PHONE #: [phone] EXAM DATE: 08/14/2019 STATUS: ADM IN FAX #: [phone] RAD NO: Page 3 Signed Report- US FLW [id number] 10:31:00 Patient Name: FELICIA YORK Unit No: [id number] EXAMS: [place]: [id number] [address] [facility] [place] [place] [address], [place] [address] OBSTETRICAL BIOPHYSICAL ULTRASOUND REPORT Pat. Name: FELICIA YORK Pat. No: [id number] Study Date: 08/14/2019 9:40am , Age: 05 1985, 33 Pregnancies: 6, Para 1132 LMP: Unknown GA by 1st: 28w6d GA by US: 28w5d GA Selected: 28w6d (From First S) BETSY: 10/31/2019 Referring MD: JO PAUL [employer] Publishing Agent: Shante Lazo RDMS CPT4: USPREGFU Admitting MD: SANNA HOFFMAN Hist/Ind: HTN SCAN 3 M EASUREMENTS AGE GROWTH EVALUATION Measurement GA Range Srce %for GA Ratios ----- ---- ------- BPD 7.2 cm 29w1d (88b4n-24w2m) Hadl BPD 57%FL/BPD 0.75 (0.71 - 0.87) HC 27.6 cm 29w6d (81r8t-03h3i) Hadl HC 71% FL/AC 0.21 (0.20 - 0.24) APD 8.2 cm APD HC/AC 1.10 (0.99 - 1.18) TAD 7.7 cm TAD CI 0.73 (0.70 - 0.86) AC 25.0 cm 29w1d (44m1m-55u7x)Hadl AC 56% FL 5.4 cm 28w0d (67k7i-27e8p) Hadl FL 33% HL 5.0 cm 29w2d (60i3a-60l6g) Gian HL 56% GA for sonogram 28w5d (55n6z-14a8k) Weight Estimate: based on (BPD,HC,AC,FL) Hadlock Weight: 1320 gm (7957-3972) Hadlo : 2lbs, 14oz Normal: 1287 gm (873-1857) Brenne Wt% 52% for 28.9 wks Cervical Charla th: 3.9 cm Heart Rate: 140 bpm Amniotic Fluid Index: 17.2cm (09.2-23.1) Q1: 3.3cm Q2: 2.9cm Q3: 6.5cm Q4: 4.4cm Biophysical Profile: 01/14 Breathin Tone: 2 Movement: 2 AFV: 2 CLINICAL SUMMARY Type of Gestation: Heredia Intrauterine in transverse HEAD RIGHTpresentation. size is appropriate for gestationalage. growth: Consistent with normal growth motion and organs seen: heart motion seen body and limb movements observed tone noted [facility] NAME: FELICIA YORK Radiology Department PHYS: Sanna Cavanaugh MD [address] : 1985 AGE: 33 SEX: F [place], [place] [address] LOC: Donovan3036 A PHONE #: [phone] EXAM DATE: 08/14/2019 STATUS: ADM IN FAX #: [phone] RAD NO: Page 1 Signed Report (CONTINUED) Patient Name:FELICIA YORK Unit No: [id number] EXAMS: CPT CODE: [id number] [place] [address] (Continued) breathing movements observed Placental location: Anterior Placental maturity : Grade 1 There isno evidence of placenta previa. Amniotic fluid volume is normal. Uterus and adnexa: No significant abnormality is seen. Thank you for allowing us to participate in the care of this patient. Janie Lovell M.D. Electronic Signature 08/14/2019 10:31am at 1031 Reported and signed by: Janie Lovell MD CC: Sanna Hoffman Technologist: Shante Lazo RDMS Probe: Trnscrbd D/ (1031) NarcisoG Orig Print D/T: S: 08/14/2019 (1031) [facility] NAME: FELICIA YORK Radiology Department PHYS: Sanna Dickerson MD [address] : 1985 AGE: 33 SEX: F [place], [place] [address] LOC: Dhara6 A PHONE #: [phone] EXAM DATE: 08/14/2019 STATUS: ADM IN FAX #: [phone] NO: Page 2 Signed Report Patient Name: FELICIA YORK Unit No: [id number] EXAMS: CPT CODE: [id number] [place] [address] (Continued) [facility] NAME: FELICIA YORK Radiology Department PHYS: Sanna Cavanaugh MD [address] : 1985 AGE: 33 SEX: F [place], [place] [address] LOC: Dhara6 A PHONE #: [phone] EXAM DATE: 08/14/2019 STATUS: ADM IN FAX #: [phone] RAD NO: Page 3 Signed Report GLUCOSE [id number] 09:45:00 Test Item Value Reference Range Interpretation Comments GLUCOSE 2HR (test code = GLU2) 127 mg/dL 70-140 N 3HR GTT GLU2 GLU2HR from 306:CF:[id number].GLUCOSE [id number] 09:42:00 Test Item Value Reference Range Interpretation Comments GLUCOSE 3HR (test code = GLU3) 116 mg/dL 65-110 H 3HR GTT GLU3 GLU3HR from 306:CF:[id number].GESTATION SCREEN [id number] 07:21:00 Test Item Value Reference Range Interpretation Comments GESTATION SCREEN GLUCOSE (test code 142 MG/DL <150 = GLU1S) GLU GEST SCRN 1 HR GLU GLU1S from 306:CF:[id number].GLUCOSE [id number] 05:26:00 Test Item Value Reference Range Interpretation Comments GLUCOSE FASTING (test code = GLUF) 93 mg/dL 65-110 N GLU GEST SCRN GLUFAST GLUFAST from 306:CF:[id number].CHEMISTRY 7 [id number] 15:00:00 Test Item Value Reference Range Interpretation [...] = CA) 8.5 mg/dL 8.4-10.2 N LIVER [id number] 15:00:00 Test Item Value Reference Range Interpretation [...] 46-116 N code = ALKP) CBC W/AUTO [id number] 14:35:00 Test Item Value Reference Range Interpretation [...] NORMAL NORMAL code = PLTMR) UR PROTEIN [id number] 13:01:00 Test Item Value Reference Range Interpretation Comments UR PROTEIN RANDOM 14.5 mg/dL (test code = PROTU) UR PROTEIN 24HR (test 189 mg/24HR 20-150 H Units for 24 HR Urine code = AASC57T) Protein have changed: New Units = MG/ 24HR UR VOLUME (test code 1300 ML = VOL) - US PREG AFTER [id number] 09:35:00 Patient Name: FELICIA YORK Unit No: [id number] EXAMS: CPT CODE: [id number] US PREG AFTER TRI [address] [facility] [address], [place] [address] OBSTETRICAL ULTRASOUND REPORT Pat. Name: FELICIA YORK Pat. No: [id number] Study Date: 07/29/2019 9:25pm , Age: 05 1985, 33 Pregnancies: 6, Para 1132 LMP: Unknown GA by 1st: 26w4d GA by US: 26w1d GA Selected: 26w4d (From First S) BETSY: 10/31/2019 Chiara fay MD: JO PAUL Tariff Publishing Agent: Julianne Portillo, [facility] CPT4: TXRNQJA5T Admitting MD: JULIOCESAR HOFFMAN Hist/Ind: HIGH BP SCAN 2 GABINO SUREMENTS AGE GROWTH EVALUATION Measurement GA Range Srce %for GA Ratios ----- ---- ------- BPD 6.5 cm 26w3d (83c2a-08m2i) Hadl BPD 46% FL/BPD 0.75 (0.71 - 0.87) HC 24.2 cm 26w0d (56a8q-53u8j) Hadl HC 39% FL/AC 0.21 (0.20 - 0.24) APD 7.3 cm APD HC/AC 1.05 (1.00 - 1.19) TAD 7.3 cm TAD CI 0.80 (0.70 - 0.86) AC 22.9 cm 27w1d (25w0d- 29w3d) Hadl AC 63% FL 4.9 cm 26w1d (44l2k-36w4n) Hadl FL 40% HL 4.5 cm 26w5d (20h5h-89o6v) Gian HL 53% GA forsonogram 26w1d (75c5m-54a2g) Weight Estimate: based on (BPD,HC,AC,FL) Hadlock Weight: [...] age. growth: Consistent with normal growth [facility] NAME: FELICIA YORK Radiology Department PHYS: Sanna Cavanaugh MD [address] : 1985 AGE: 33 SEX: F [place], [place] [address] LOC: F.3048 A PHONE #: [phone] EXAM DATE: 07/29/2019 STATUS: ADM IN FAX #: [phone] RAD NO: Page 1 Signed Report (CONTINUED) Patient Name: FELICIA YORK Unit No: [id number] EXAMS: CPT CODE: [id number] [place] PREG [place] [address] [address] (Continued) motion and organs seen: heart motion seen body and limb movements seen Four chamber heart observed Left ventricular outflow tract (LVOT) seen Right ventricular outflow tract (RVOT) seen Normal intracranial anatomy seen Umbilical cord insertion in fetus seenFetal stomach, Renal Fossa, Bladder and Spine seen Three vessel umbilical cord noted abnormalities observed: None seen at this exam Difficult to image Placental location: Anterior Placental maturity : Grade 1 There is no evidence of placenta previa. MARGINAL CORD INSERTION IN PLACENTA IS SEEN. Amniotic fluid volume is normal. Uterus and adnexa: No significant abnormality is seen. Thank you for a llowing us to participate in the care of this patient. Bharat Oneill M.D. Electronic Signature 07/30/2019 09:35am at 0935 Reported and signed by: Bharat Oneill MD CC: Sanna Hoffman Technologist: Julianne Portillo RDMS Probe: Trnscrbd D/ (0935) t.BENJAMINR.YOS Orig Print D/T: S: 07/30/2019 (0935) [facility] NAME: FELICIA YORK Radiology Department PHYS: Sanna Cavanaugh MD [address] : 1985 AGE: 33 SEX: F [place], [place] [address] LOC: F.3048 A PHONE #: [phone] EXAM DATE: 07/29/2019 STATUS: ADM IN FAX #: [phone] RAD NO: Page 2 Signed Report Patient Name: FELICIA YORK Unit No: [id number] EXAMS: CPT CODE: [id number] US PREG AFTER 1ST TRI [address] (Continued) [facility] NAME: FELICIA YORK Radiology Department PHYS: Sanna Cavanaugh MD [address] : 1985 AGE: 33 SEX: F [place], [place] [address] LOC: Donovan3048 Ras PHONE #: [phone] EXAM DATE: 07/29/2019 STATUS: ADM IN FAX #: [phone] RAD NO: Page 3 Signed ReportGESTATION SCREEN [id number] 07:59:00 Test Item Value Reference Range Interpretation Comments GESTATION SCREEN GLUCOSE (test code 135 MG/DL <150 = GLU1S) GLU GEST SCRN 1 HR GLU GLU1S from 220:CF:[id number].GLUCOSE [id number] 05:55:00 Test Item Value Reference Range Interpretation Comments GLUCOSE FASTING (test code = GLUF) 96 mg/dL 65-110 N GLU GEST SCRN GLUFAST GLUFAST from 220:CF:[id number].[id number] 13:37:00 Test Item Value Reference Range Interpretation Comments CREATININE (test code = CREAT) 0.7 mg/dL 0.5-1.0 N SGOT/[id number] 13:37:00 Test Item Value Reference Range Interpretation Comments SGOT/AST (test code = AST) 12 units/L 15-37 L SGPT/[id number] 13:37:00 Test Item Value Reference Range Interpretation Comments SGPT/ALT (test code = ALT) 15 units/L 12-78 N ALKALINE PHOSPHATASE [id number] 13:37:00 Test Item Value Reference Range Interpretation Comments ALKALINE PHOSPHATASE TOTAL (test 50 units/L 46-116 N code = ALKP) [id number] 13:37:00 Test Item Value Reference Range Interpretation Comments AMYLASE (test code = JESS) 30 units/L 30-110 N [id number] 13:37:00 Test Item Value Reference Range Interpretation Comments LIPASE (test code = LIP) 60 units/L 73-393 L CBC W/AUTO [id number] 13:19:00 Test Item Value Reference Range Interpretation [...] NORMAL NORMAL code = PLTMR) CHEMISTRY 7 [id number] 23:01:00 Test Item Value Reference Range Interpretation [...] = CA) 8.6 mg/dL 8.4-10.2 N URIC [id number] 23:01:00 Test Item Value Reference Range Interpretation Comments URIC ACID (test code = URIC) 3.7 mg/dL 2.6-6.0 N SGOT/[id number] 23:01:00 Test Item Value Reference Range Interpretation Comments SGOT/AST (test code = AST) 22 units/L 15-37 N SGPT/[id number] 23:01:00 Test Item Value Reference Range Interpretation Comments SGPT/ALT (test code = ALT) 26 units/L 12-78 N CHEMISTRY 7 [id number] 22:51:00 Test Item Value Reference Range Interpretation [...] = CA) 8.6 mg/dL 8.4-10.2 N URIC [id number] 22:51:00 Test Item Value Reference Range Interpretation Comments URIC ACID (test code = URIC) 3.7 mg/dL 2.6-6.0 N URINALYSIS [id number] 22:35:00 Test Item Value Reference Range Interpretation [...] = MUCU) RARE NONE SEEN Comments to Websphere Developer: CORETTA MCCORD SAMPLE: CLEAN CATCHCBC W/AUTO DIFF [...] code = PLTMR) - US PREG UT [id number] 20:39:00 Patient Name: FELICIA YORK Unit No: [id number] EXAMS: CPT CODE: [id number] US PREG UT TRANSVAGINAL [address]75[address] Limited obstetrical ultrasound with transvaginal imaging of [...] Jaiden Durham MD CC: Sanna Hoffman Technologist: LindseyK. Violet RDMS Probe: [id number] Trnscrbd D/ (2038) GarethDMLiz Orig Print D/T: S: 06/26/2019 (2041) [facility] NAME: FELICIA YORK Radiology Department PHYS: Sanna Cavanaugh MD [address] : 1985 AGE: 33 SEX: [place] [address] LOC: DonovanROMAN PHONE #: [phone] EXAM DATE: 06/26/2019 STATUS: REG ER FAX #: [phone] RAD NO: Page 1 Signed Report Patient Name: FELICIA YORK JULIANNE Unit No: [id number] EXAMS: CPT CODE: [id number] US PREG UT TRANSVAGINAL [address] (Continued) [facility] NAME: FELICIA YORK Radiology Department PHYS: Sanna Cavanaugh MD [address] : 1985 AGE: 33 SEX: [place] [address] LOC: DonovanROMAN PHONE #: [phone] EXAM DATE: 06/26/2019 STATUS: REG ER FAX #: [phone] RAD NO: Page 2 Signed Report- US FLW [id number] 20:39:00 Patient Name: FELICIA YORK Unit No: [id number] EXAMS: CPT CODE: [id number] [place] [address] Limited obstetrical ultrasound with transvaginal imaging of [...] of 147 bpm. IMPRESSION: 1. Single living intrauteri ne with an estimated ultrasound gestational age of 22 weeks 0 days and an estimated date of delivery of 10/30/2019. SL: 131 at 2038 Reported and signed by: Jaiden Durham MD CC: Jo Paul MD; Sanna Hoffman Technologist: Shante Lazo RDMS Probe: Trnscrbd D/ (2038) t.OCTAVIA.DMM Orig Print D/T: S: 06/26/2019 (2041) [facility] NAME: FELICIA YORK Radiology Department PHYS: HARSHA. - Jo Paul MD [address] : 1985 AGE: 33 SEX: [place] [address] LOC: DonovanROMAN PHONE #: [phone] EXAM DATE: 06/26/2019 STATUS: REG ER FAX #: [phone] RAD NO: Page 1 Signed Report Patient Name: FELICIA YORK JULIANNE Unit No: [id number] EXAMS: CPT CODE: [id number] [place] [id number] (Continued) [facility] NAME: FELICIA YORK Radiology Department PHYS: HARSHA. - Jo Paul MD [address] : 1985 AGE: 33 SEX: F [place] [address] LOC: JOHANNY PHONE #: [phone] EXAM DATE: 06/26/2019 STATUS: REG ER FAX #: [phone] RAD NO: Page 2 Signed Report COMPREHENSIVE METABOLIC [id number] 20:15:00 Test Item Value Reference Range Interpretation [...] = ALKP) UA RFLX MICR CULT IF [id number] 19:55:00 Test Item Value Reference Range Interpretation [...] RARE-FEW Indication for culture: Suprapubic PainUR PROTEIN/CREATININE [id number] 19:55:00 Test Item Value Reference Range Interpretation Comments UR PROTEIN RANDOM (test code = <6 mg/dL PROTU) UR CREATININE RANDOM (test 22.8 mg/dL code = CREATU) PROTEIN/CREATININE RATIO (test 260.0 mg/gcrea <200 H code = P/CRATIO) Indication for culture: Suprapubic PainUA RFLX MICR CULT IF [id number] 19:51:00 Test Item Value Reference Range Interpretation [...] RARE-FEW Indication for culture: Suprapubic PainUR PROTEIN/CREATININE [id number] 19:51:00 Test Item Value Reference Range Interpretation Comments UR PROTEIN RANDOM (test code = mg/dL PROTU) UR CREATININE RANDOM (test code = mg/dL CREATU) PROTEIN/CREATININE RATIO (test code mg/gcrea <200 = P/CRATIO) Indication for culture: Suprapubic PainCBC W/AUTO [id number] 19:47:00 Test Item Value Reference Range Interpretation [...] REQUIRED (test NORMAL NORMAL code = PLTMR) Notes Date/Time Note Provider Source 2019-11-16 16:46:00-00:00 [facility] ([facility]) EMERGENCY PROVIDER REPORT REPORT#:[id number] REPORT STATUS: Signed DATE:11/16/19 TIME: 1645 PATIENT: FELICIA YORK UNIT #: [id number] ROOM/BED: AGE: 34 SEX: F PCP PHYS: Sanna Hoffman MD SERVICE AUTHOR: Sherrie Leahy MD * ALL edits or amendments must be made on the [email or web address] document * HPI-General Illness Free Text HPI Notes Free Text HPI Notes Patient is a 34-year-old female status post vagi nal delivery approximately 6 weeks ago with preeclampsia who was recently adm itted 2 weeks ago for preeclampsia and had a compl ete work-up for hypertension with an echo which was normal per patient discharge d home on Procardia and labetalol who presents for 2 -day history of elevated blood pressures. Liliana draper self discontinued her blood pressure and medications because she states it w as making her feel weak. Of note her mother is in the room who is concerned due to her excessive antidiarrheal medication use . Patient now having a headache rated at a 6 out of 10 no blurry vision not seeing spots. General Initial Greet Date/Time 11/16/19 1554 Presentation Chief Complaint __ (headache and BP) Review of Systems ROS Statements All systems rev neg except as marked. Past Medical History - Adult Stated Complaint ELEVATED BP. HEADACHE Allergies Coded Allergies: No Known Allergies (06/30/19) Home Medications Active Scripts IBUPROFEN (MOTRIN) 600 MG PO Q6H PRN PRN PAIN SC ILANA 1-3 (USE 1ST) IBUPROFEN (MOTRIN) 600 MG PO Q6H PRN PRN PAIN S BOB 1-3 (USE 1ST) #30 TAB Prov: 10/09/19 LABETALOL (TRANDATE) 200 MG PO Q8H LABETALOL (TRANDATE) 200 MG PO Q8H #90 TAB Prov: 10/20/19 NIFEdipine XL (PROCARDIA XL) 30 MG PO BID NIFEdipine XL (PROCARDIA XL) 30 MG PO BID #60 T AB Prov: 10/20/19 Discontinued Scripts oxyCODONE (ROXICODONE) 5 MG PO Q6HPRN PRN SEVERE PAIN (SCALE 7-10) oxyCODONE (ROXICODONE) 5 MG PO Q6HPRN PRN SEVER E PAIN (SCALE 7-10) #20 TAB Prov: 10/09/19 DC: 11/16/19 1641 Therapy completed Reported Medications NIFEdipine XL (PROCARDIA XL) Discontinued Reported Medications PNV/FE FUM/FA ( MULTIVITAMIN) 1 TAB PO D AILY Smoking status for patients 13 years old or olde r: Former Smoker Physical Exam Vital Signs Vital Signs First Documented: Result Date Time Pulse Ox 99 11/15 1604 B/P 152/84 11/15 1604 B/P Mean 106 11/15 1604 O2 Delivery Room air 11/15 1604 Temp 36.4 11/15 1604 Pulse 65 11/15 1604 Resp 16 11/15 1604 Last Documented: Result Date Time B/P 177/88 11/15 1812 B/P Mean 117 11/15 1812 Pulse 60 11/15 1812 Pulse Ox 99 11/15 1604 O2 Delivery Room air 11/15 1604 Temp 36.4 11/15 1604 Resp 16 11/15 1604 Review of Vital Signs Reviewed Basic Physical Exam Basic PE GEN: Well appearing /NAD, HEAD: Atraumatic/NC, EYES: PERRL, conj clear, RESP: No resp distress, CV: Reg rate rhythm, ABD : Soft/non-tender, EXT: No gross abnormality, SKIN: No rashes, warm/dry, NE URO: alert oriented, NEURO: gross movement NL, PSYCH: NL thought content Physical Exam General/Const General/Const Awake, Alert, No acute distress, Cooperative Interpretation Diagnostics Lab Results Interpretation Results Laboratory Tests 11/16/191626: [Embedded Image Not Available] Laboratory Tests: 11/15 1626 Chemistry Sodium (135 - 145 mEq/L) 140 Potassium (3.5 - 5.0 mEq/L) 3.9 Chloride (100 - 115 mEq/L) 104 Carbon Dioxide (22 - 31 mEq/L) 29 Anion Gap (10 - 20) 10.50 BUN (7 - 18 mg/dL) 12 Creatinine (0.5 - 1.0 mg/dL) 1.1 H Glomerular Filtr Rate (>60 ml/min) 57 L Glucose (65 - 110 mg/dL) 132 H Uric Acid (2.6 - 6.0 mg/dL) 6.2 H Calcium (8.4 - 10.2 mg/dL) 9.1 Total Bilirubin (0.2 - 1.0 mg/dL) 0.3 AST (15 - 37 units/L) 33 ALT (12 - 78 units/L) 67 Total Alk Phosphatase (46 - 116 units/L) 74 Lactate Dehydrogenase (81 - 234 units/L) 160 Total Protein (6.3 - 8.2 gm/dL) 7.2 Albumin (3.4 - 4.8 gm/dL) 3.4 Hematology WBC (6.6 - 12.1 K/mm3) 8.7 RBC (3.45 - 5.01 M/mm3) 4.13 Hgb (10.7 - 13.9 g/dL) 12.0 Hct (32.1 - 42.1 %) 37.7 MCV (84.1 - 94.8 fL) 91 MCH (27 - 35 pg) 29.1 MCHC (32.2 - 34.1 gm/dL) 31.8 L RDW (12.4 - 16.5 %) 12.2 L Plt Count (133 - 385 K/mm3) 340 MPV (9.1 - 12.7 fl) 9.6 Neut % (Auto) (56.5 - 79.4 %) 72.3 Lymph % (Auto) (14.3 - 34.3 %) 21.1 [place] % (Auto) (5.1 - 10.4 %) 4.0 L Eos % (Auto) (0.1 - 3.0 %) 1.6 Baso % (Auto) (0.1 - 1.0 %) 0.2 Neut # (Auto) (K/mm3) 6.3 Lymph # (Auto) (K/mm3) 1.8 [place] # (Auto) (K/mm3) 0.4 Eos # (Auto) (K/mm3) 0.14 Baso # (Auto) (K/mm3) 0.0 Urines Urine Color (YELLOW) YELLOW Urine Appearance (CLEAR) Slightly-Cloudy Urine pH (5 - 9) 7.0 Ur Specific [place] (1.001 - 1.035) 1.017 Urine Protein (NEG) NEGATIVE Urine Glucose (UA) (NEG) NEGATIVE Urine Ketones (NEG) NEGATIVE Urine Blood (NEG) NEG Urine Nitrite (NEG) NEG Urine Bilirubin (NEG) NEGATIVE Urine Urobilinogen (NEG mg/dL) 2.0 Ur Leukocyte Esterase (NEG) NEG Urine RBC (NONE SEEN #/hpf) 0-2 Urine WBC (NONE SEEN #/hpf) 3-5 H Ur Epithelial Cells (RARE - FEW #/HPF) RARE Urine Mucus (NONE SEEN) RARE Re-Evaluation MDM Free Text MDM Notes Free Text MDM Notes Paged Dr. Hillary Ybarra at 1734 and discussed patient's past history in detail and discussed her blood pressure readings here in the ED. there is a potential that the patient has been abusing Imod ium at high doses producing a euphoric effect per the mother. Currently the magalys [place] is awake alert oriented neurological exam was intact. No acute signs of intoxication. All of this was discussed with Dr. Ybarra. We will restart her blood pressure medications give her a bolus here in the ED Tylenol/Motri n for headache pain and follow-up with Dr. Hoffman as scheduled. ED Course Medication(s) Ordered Medication(s) Ordered: Cardiovascular Drugs Sig/Renan Start time Last Medication Dose Route Stop Time Status Admin Hydralazine HCl 20 MG X1ED STA 11/15 1811 DC 0 11/15 IV 11/15 1812 1817 Labetalol HCl 100 MG X1ED STA 11/15 1615 DC PO 11/15 1616 1622 Central Nervous System Agents Sig/Renan Start time Last Medication Dose Route Stop Time Status Admin Acetaminophen 1,000 MG X1ED STA 11/15 1643 DC 0 11/15 PO 11/15 1644 1700 Electrolytic, Caloric, And Clayton Sig/Renan Start time Last Medication Dose Route Stop Time Status Admin Sodium Chloride 1,000 ML X1ED STA 11/15 1716 DC 11/15 IV 11/15 1717 1739 Patient Discharge Departure Vital Signs/Condition Vital Signs First Documented: Result Date Time Pulse Ox 99 11/15 1604 B/P 152/84 11/15 1604 B/P Mean 106 11/15 1604 O2 Delivery Room air 11/15 1604 Temp 36.4 11/15 1604 Pulse 65 11/15 1604 Resp 16 11/15 1604 Last Documented: Result Date Time B/P 177/88 11/15 1812 B/P Mean 117 11/15 1812 Pulse 60 11/15 1812 Pulse Ox 99 11/15 1604 O2 Delivery Room air 11/15 1604 Temp 36.4 11/15 1604 Resp 16 11/15 1604 All vital signs available at the time of this en try have been reviewed. Condition Stable Clinical Impression Clinical Impression Primary Impression: Hypertension Secondary Impressions: Headache Time of Impression 1738 Disposition Decision Discharge )( Discharged to Home Yes )( Time 173 )( Date 11/16/19 Discharge/Care Plan Counseled Regarding Diagnosis, Need for follow-u p, When to return to ED Prescriptions labetalol and nifedipine Referrals Sanna Hoffman MD (PCP) Discharge Note I have spoken with the patie nt and/or caregivers. I have explained the patient's condition, diagnoses and gabe atment plan based on the information available to me at this time. I have answered the patient's and/ or caregiver's questions and addressed any concerns. The patient and/or careg amisha have as good an understanding of the patient 's diagnosis, condition and treatment plan as can be expected at this point. The vital signs have bee n stable. The patient's condition is stable and appr opriate for discharge from the emergency department. The patient will pursue further outpatient evalu ation with the primary care physician or other designated or consulting phys ician as outlined in the discharge instructions. The patient and/or caregivers are agreeable to this plan of care and follow-up instructions have been exp lained in detail. The patient and/or caregivers have received these instructio ns in written format and have expressed an understanding of the discharge inst ructions. The patient and/or caregivers are aware that any significant change in condition or worsening of symptoms should prompt an immediate return to [facility] or the closest emergency department or a call to 911. Quality Measures Preg Test for Women w/Abd Pain Any preg test ord ered Smoking Cessation Screened, non user Electronically Signed by Sherrie Leahy MD on at 1821 RPT #:[id number] END OF REPORT 2019-11-16 15:25:00-00:00 [id number] [facility] [address], [place] [address] PATIENT NAME: FELICIA YORK ADMIT DATE: 10/06/19 ACCOUNT NO: [id number] ROOM NO: .[facility] AGE: 34 SEX: F ADMITTING PHYSICIAN: Sanna Hoffman MD ATTENDING PHYSICIAN: Sanna Hoffman MD ADMISSION DATE: 10/06/2019 DISCHARGE DATE: 10/09/2019 ADMISSION DIAGNOSES: 1. A 36-week . 2. Previous section. 3. Preeclampsia. 4. Labor. ADDITIONAL DIAGNOSIS: Desires sterilization. PROCEDURES PERFORMED: 1. Repeat low transverse delivery. 2. Bilateral salpingectomy for sterilization. DISCHARGE EXAM: Benign with incision noted to be clean, dry, and intact. DISPOSITION: The patient discharged home in good condition. DISCHARGE MEDICATIONS: Include Motrin, oxycodone , vitamin. SUMMARY OF HOSPITAL COURSE: The patient was admi tted at 36+ weeks' gestation complaining of contractions and severe l ower abdominal pain at the site of her previous and she w as found to be max on monitors and received steroids. status was found to be reassurin g; however, given regular contractions and the patient 's pain level, decision made to proceed with repeat for concern for possible uterine ruptu re and dehiscence as well as concurrent bilateral tubal sterilization. The magalys [place] underwent these procedures as previously dictated. Postoperative ly, the patient did well. She remained afebrile with stable vital signs throug hout her hospital course. Her blood pressure normalized. She had poor pain con trol with oxycodone. On postoperative day #1, she tolerated regular diet and ambulated without difficulty. Hemoglobin and hematocrit were stabl e. By postoperative day #3, she was reporting decent pain control, was ambul ating without difficulty, meeting all postoperative goals. She was [facility]. Discharge exam was benign wi th incision noted to be clean, dry, and intact. She was scheduled for followup in the office in 2 we eks for incision check. Dictated By: Sanna Hoffman MD WT: DS:F.ROOSEVELT/FAINA/NTS PATIENT NAME: FELICIA YORK 730 Conf#: [id number]/DID#: [id number] Authenticated by Sanna Hoffman MD On 2019 11:16:10 PM Electronically Signed by Sanna Hoffman MD o n 11/16/19 at 2316 PATIENT NAME: FELICIA YORK 730 2019-11-16 15:22:00-00:00 [id number] [facility] [address], [place] [address] PATIENT NAME: FELICIA YORK ADMIT DATE: 10/06/19 ACCOUNT NO: [id number] ROOM NO: [facility] AGE: 34 SEX: F ADMITTING PHYSICIAN: Sanna Hoffman MD ATTENDING PHYSICIAN: Sanna Hoffman MD OPERATION DATE: 10/06/2019 PREOPERATIVE DIAGNOSES: 1. A 36-week . 2. Preeclampsia. 3. Early labor. 4. Abdominal pain. 5. Previous section. 6. Desires sterilization. POSTOPERATIVE DIAGNOSES: 1. A 36-week . 2. Preeclampsia. 3. Early labor. 4. Abdominal pain. 5. Previous section. 6. Desires sterilization PROCEDURE PERFORMED: 1. Repeat low transverse delivery. 2. Bilateral salpingectomy. SURGEON: Sanna Hoffman MD. SAMPLE WORKER: Rob Miller MD. ANESTHESIA: Combined spinal epidural. ESTIMATED BLOOD LOSS: 600 mL. PATHOLOGY: Bilateral tubes. COMPLICATIONS: None. OPERATIVE FINDINGS: 1. Normal-appearing uterus, ovaries, and tubes. 2. Cephalic male , Apgars 8 and 9. 3. Hemostatic. 4. All counts correct. STATEMENT OF MEDICAL NECESSITY: The patient is a 36 weeks' gestation with history of previous , has been followed throughout her for preeclampsia, who presented complaining of contractions, found to have signs of PATIENT NAME: FELICIA YORK 730 labor with regular contractions and pravin y cervical change. Risks, benefits, alternatives, and indications of repeat were discussed with the patient and family and they agreed to plan. She also desired permanent sterilization. Risks, benefits, alternatives, an d indications of bilateral salpingectomy including permanence procedure, ir reversibility procedure, alternative methods of control, an d failure rate were all discussed with the patient and family, they agreed to plan. STATEMENT OF PROCEDURE: After informed consent w as obtained, the patient was taken to the operating room. Adequate spinal epi dural anesthesia was established. She was prepped and draped in usual sterile fashion. Transverse skin incision made through the previous C-sectio n scar. This was carried down to the fascia. Fascia was scored in midline. Fas cial incision was extended bilaterally. Muscles dissect ed off back of the fascia and in midline. Peritoneal cavity was bluntly entered. Bladder flap was created at the level of the previous bladder flap. A low transverse h ysterotomy was made, this was bluntly extended bilaterally. Fetus foun d in cephalic position. head was brought to the hysterotomy. With fundal pressure , head and body were delivered. Mouth and nares were bulb suctioned. Cord was doubly clamped and cut and fetus passed off for evaluation. Placent a was delivered with fundal massage. Uterus exteriorized , wrapped in moist laparotomy sponge and curettaged with dry laparotomy sponge. Hysterotomy was clos ed with #1 chromic suture in running-locked fashion. It was irrigated and grace dered hemostatic. A secondary layer closure was performed with 2-0 Mon ocryl in imbricating fashion. This too was irrigated and rendered h emostatic. Attention was directed to left fallopian tube, a clear area of mesosalpinx and pr oximal portion of tube was identified, was punctured using hemostat and clamped across the proximal tube using hemostat, the distal mesosal pingeal pedicle was controlled using a Alejandra clamp. The tube was then sharply removed using Metzenba um scissors and sent for pathology. The distal tubal stump was do ubly ligated first with a free tie and then with a transfixion suture of 0 chromic sutu re. Proximal tubal stump was ligated using a 0 chromic solorzano ture as well. The sites were inspected and found to be hemostatic. This was repeated on the contrala teral side. Uterus was returned to abdominal cavity. Gutters copiously irrigated and suctioned dry. Hysterotomy was again inspected and gertrudis ined hemostatic as were pedicle sites. Peritoneum was reapproximated with 2-0 chromic s uture. Muscles reapproximated with 2-0 chromic suture. Fascia was closed with 0 Vicryl from either side and tied in the midline. Subcutaneous tissue was copiously irrigated and suctioned dry. It was reapproximated with plain gut suture . Skin was closed with 3-0 Monocryl running subcuticular stitch. Wound dres sed with Mastisol, Steri-Strips, and occlusive bandage. Blood and c lot were evacuated from the uterus and vagina. The patient was taken to [facility] room in good condition. There were no operative or anesthetic complicati ons. Dictated By: Sanna Hoffman MD WT: OP:F.HIM/SHEGR/NTS Conf#: [id number]/DID#: [id number] Authenticated by Sanna Hoffman MD On 2019 04:01:57 PM PATIENT NAME: FELICIA YORK 730 Electronically Signed by Sanna Hoffman MD o n 11/25/19 at 1602 PATIENT NAME: FELICIA YORK 730 2019-10-20 08:36:00-00:00 [facility] ([facility]) OB Postpart Progr Note REPORT#:[id number] REPORT STATUS: Signed DATE:10/20/19 TIME: 08 PATIENT: FELICIA YORK UNIT #: [id number] ROOM/BED: [address] : [address] AGE: 33 SEX: F ATTEND: Mable Hoffman MD ADM AUTHOR: Sanna Hoffman MD * ALL edits or amendments must be made on the [email or web address] document * Subjective Subjective Status/Day: post operative, readmit for elevated BP and fluid overload Patient reports: Patient reports: Yes no complaints, Yes tolerating po well Comments: no P{IH sx, feeling better. Objective General VS: Vital Signs: Date Time Temp Pulse Resp B/P B/P Pulse O2 O2 F low FiO2 Mean Ox Delivery Rate 10/19 0500 98.1 76 18 134/74 97 10/18 2019 97.8 82 16 124/76 98 10/18 1628 98.2 68 16 132/77 97 10/18 1200 98.1 67 16 125/71 95 10/18 0900 65 16 151/83 95 Patient Weight Weight (lb): Weight (oz): Weight (kg): 108.900 Physical Exam Neuro: Exam: alert, oriented x3 Abdomen: soft, no abnormal tenderness Incision site: well approximated edges, dry, no drainage, no inflammation Fundus: below the umbilicus Lower extremities: Edema: trace Diagnosis, Assessment Plan Diagnosis, Assessment Plan Problem List/A P: 1. Preeclampsia 2. Generalized headaches Assessment: BPs nonsevere for past 12 hrs. sx im proved. echo in progress. possible d/c home tomorrow if BPs remain stable. BPs continue to be elevated. echo wnl. will increase labetalol to TID and procardia to BID. will give lasix x1. will give demerol/phenergan for BADILLO. monitor BPs., BPs much better controlled. no PIH sx. d/c home. f/u in office n ext week. Plan: discharge today at 0837 RPT #:[id number] END OF REPORT 2019-10-19 08:45:00-00:00 [facility] ([facility]) OB Postpart Progr Note REPORT#:[id number] REPORT STATUS: Signed DATE:10/19/19 TIME: 08 PATIENT: FELICIA YORK UNIT #: [id number] ROOM/BED: [address] : [address] AGE: 33 SEX: F ATTEND: Mable Hoffman MD ADM AUTHOR: Sanna Hoffman MD * ALL edits or amendments must be made on the [email or web address] document * Subjective Subjective Status/Day: post operative, readmit for elevated BP and fluid overload Patient reports: Comments: c/o BADILLO, poor sleep. 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 notes edema improved. Objective Nursing Documentation Review Nursing Data: The data set between the solid lines has been im ported from nursing documentation. Any exceptions have been noted be low under Provider comments. Feeding preference: Provider comments on imported nursing data: [] General VS: Patient Weight Weight (lb): Weight (oz): Weight (kg): 108.900 Physical Exam Neuro: Exam: alert, oriented x3 Abdomen: soft, no abnormal tenderness Incision site: well approximated edges, dry, no drainage, no inflammation Fundus: below the umbilicus Lower extremities: Edema: 1+ pitting Diagnosis, Assessment Plan Diagnosis, Assessment Plan Problem List/A P: 1. Preeclampsia 2. Generalized headaches Assessment: BPs nonsevere for past 12 hrs. sx im proved. echo in progress. possible d/c home tomorrow if BPs remain stable., BPs continue to be elevated. echo wnl. will increase labetalol to TID and procardia to BID. will give lasix x1. will give demerol/phenergan for BADILLO. monitor BPs. at 0847 [facility] #:[id number] END OF REPORT 2019-10-18 16:39:00-00:00 [id number] [facility] [address], [place] [address] PATIENT NAME: FELICIA YORK ADMIT DATE: 10/16/19 ACCOUNT NO: [id number] ROOM NO: [facility] AGE: 33 SEX: F ADMITTING PHYSICIAN: Sanna Hoffman MD ATTENDING PHYSICIAN: aSnna Hoffman MD *[facility] [place] [address] Transthoracic Echocardiogram Patient: Felicia York Study Date: 10/18/2019 BP: 135 / 77 Location: [facility] URN: [id number] : 1985 Age: 33 Height: 68 in / 172.7 cm Gender: F Weight: 239 .5 lb / 108.9 kg BMI/BSA: 36.5 kg/m 2 / 2.33 m 2 *Ordering Physician: * Sanna HoffmanInterpreting Physician: * Jess Park MD *[employer] Agent: KENYA Tripp Indications: Hypertension. Study data: Transthoracic echocardiogram. M-mode , complete 2D, complete spectral Doppler, and color Doppler. Lo cation: Bedside. Patient room number: 2214. Findings Left ventricle: The cavity size is normal. Wall thickness is increased. Systolic function is normal. The estimated eject ion fraction is 60-64%. Wall motion is normal; there are no regional wal l motion abnormalities. Right ventricle: The cavity size is normal. Syst olic function is normal. Left atrium: The atrium is normal in size. Right atrium: The atrium is normal in size. Aorta: Aortic root: The aortic root is normal in size. PATIENT NAME: FELICIA YORK 813 Aortic valve: The valve is structurally normal. Mitral valve: The leaflets are mildly thickened. There is mild regurgitation. Tricuspid valve: The valve is structurally jess l. There is mild regurgitation. Estimated pulmonary artery systol ic pressure is 29-34 mmHg. Pulmonic valve: Not well visualized. There is mi ld regurgitation. Pericardium: There is no pericardial effusion. Systemic veins: Inferior vena cava: The vessel is normal in size . Estimated right atrial pressure is 5-10 mmHg. Measurements Left ventricle Value Ref Left atrium Value Ref BETSY, LAX 5.3 cm 3.8 - 5.2 AP dim, ES 3.86 cm 2. 70 - 3.80 ESD, LAX 3.5 cm 2.2 - 3.5 FS, LAX 34 % 27 - 45 Aortic root Value Ref PW, ED 1.3 cm 0.6 - 0.9 Root diam 2.9 cm <4.1 IVS/PW, ED 0.97 --------- EF 63 % 54 - 74 Ventricular septum Value Ref IVS, ED 1.2 cm 0.6 - 0.9 Prepared and electronically signed by Jess Park MD 10/18/2019 16:39 Electronically Signed by Jess Park MD on 0 10/18/19 at 1639 PATIENT NAME: FELICIA YORK 813 2019-10-18 12:37:00-00:00 [facility] ([facility]) OB Postpart Progr Note REPORT#:[id number] REPORT STATUS: Signed DATE:10/18/19 TIME: 1237 PATIENT: FELICIA YORK UNIT #: [id number] ROOM/BED: [address] : [address] AGE: 33 SEX: F ATTEND: Mable Hoffman MD ADM AUTHOR: Sanna Hoffman MD * ALL edits or amendments must be made on the el [employer]/computer document * Subjective Subjective Status/Day: post operative, readmit for elevated BP and fluid overload Patient reports: Comments: reports feeling ok, wants to go home. BADILLO control led with [place]. no other c/o. Objective Nursing Documentation Review Nursing Data: The data set between the solid lines has been im ported from nursing documentation. Any exceptions have been noted be low under Provider comments. Feeding preference: Provider comments on imported nursing data: [] General VS: Patient Weight Weight (lb): Weight (oz): Weight (kg): 108.900 Physical Exam Neuro: Exam: alert, oriented x3 Diagnosis, Assessment Plan Diagnosis, Assessment Plan Problem List/A P: 1. Preeclampsia 2. Generalized headaches Assessment: BPs nonsevere for past 12 hrs. sx im proved. echo in progress. possible d/c home tomorrow if BPs remain stable. at 1239 [facility] #:[id number] END OF REPORT 2019-10-17 12:26:00-00:00 [facility] ([facility]) OB Postpart Progr Note REPORT#:[id number] REPORT STATUS: Signed DATE:10/17/19 TIME: 1226 PATIENT: FELICIA YORK UNIT #: [id number] ROOM/BED: 2214-A : 84 AGE: 33 SEX: F ATTEND: Mable Hoffman MD ADM AUTHOR: Bria Goel MD * ALL edits or amendments must be made on the [email or web address] document * Subjective Subjective Status/day: post operative, day 12 Comments: Pt reports persistent headaches, somewhat helped with norco Objective General VS: Laboratory Tests: 10/15 10/15 10/14 10/14 1020 1130 3830 0437 Chemistry Sodium (135 - 145 mEq/L) 141 Potassium (3.5 - 5.0 mEq/L) 4.4 Chloride (100 - 115 mEq/L) 105 Carbon Dioxide (22 - 31 mEq/L) 30 Anion Gap (10 - 20) 10.90 BUN (7 - 18 mg/dL) 18 Creatinine (0.5 - 1.0 mg/dL) 1.0 Glomerular Filtr Rate (>60 ml/min) 63 Glucose (65 - 110 mg/dL) 95 Calcium (8.4 - 10.2 mg/dL) 8.5 Magnesium (1.8 - 2.4 mg/dL) 2.7 H Total Bilirubin (0.2 - 1.0 mg/dL) 0.2 AST (15 - 37 units/L) 19 ALT (12 - 78 units/L) 21 Total Alk Phosphatase (46 - 116 units/L) 81 B-Natriuretic Peptide (0 - 100 pg/mL) 542.13 H Total Protein (6.3 - 8.2 gm/dL) 5.4 L Albumin (3.4 - 4.8 gm/dL) 2.5 L Hematology WBC (6.6 - 12.1 K/mm3) 8.3 RBC (3.45 - 5.01 M/mm3) 3.37 L Hgb (10.7 - 13.9 g/dL) 10.1 L Hct (32.1 - 42.1 %) 31.8 L MCV (84.1 - 94.8 fL) 94 MCH (27 - 35 pg) 30.0 MCHC (32.2 - 34.1 gm/dL) 31.8 L RDW (12.4 - 16.5 %) 13.1 Plt Count (133 - 385 K/mm3) 334 MPV (9.1 - 12.7 fl) 10.1 Neut % (Auto) (56.5 - 79.4 %) 53.7 L Lymph % (Auto) (14.3 - 34.3 %) 30.0 [place] % (Auto) (5.1 - 10.4 %) 9.4 Eos % (Auto) (0.1 - 3.0 %) 5.8 H Baso % (Auto) (0.1 - 1.0 %) 0.6 Neut # (Auto) (K/mm3) 4.5 Lymph # (Auto) (K/mm3) 2.5 [place] # (Auto) (K/mm3) 0.8 Eos # (Auto) (K/mm3) 0.48 Baso # (Auto) (K/mm3) 0.1 Serology Nasal/Oral COVID-19 PCR (Negative) Negative Urines Ur Random Creatinine (mg/dL) 74.0 U Random Total Protein (mg/dL) 14.0 Protein/Creatinin Ratio (<200 mg/gcrea) 180.0 /08 2311 Chemistry Sodium (135 - 145 mEq/L) 141 Potassium (3.5 - 5.0 mEq/L) 3.9 Chloride (100 - 115 mEq/L) 105 Carbon Dioxide (22 - 31 mEq/L) 29 Anion Gap (10 - 20) 10.80 BUN (7 - 18 mg/dL) 17 Creatinine (0.5 - 1.0 mg/dL) 1.1 H Glomerular Filtr Rate (>60 ml/min) 57 L Glucose (65 - 110 mg/dL) 95 Calcium (8.4 - 10.2 mg/dL) 8.9 Magnesium (1.8 - 2.4 mg/dL) 1.7 L Total Bilirubin (0.2 - 1.0 mg/dL) 0.2 AST (15 - 37 units/L) 20 ALT (12 - 78 units/L) 24 Total Alk Phosphatase (46 - 116 units/L) 96 Total Creatine Kinase (26 - 192 Units/L) 81 Troponin I (<0.056 ng/mL) 0.043 Total Protein (6.3 - 8.2 gm/dL) 6.7 Albumin (3.4 - 4.8 gm/dL) 2.9 L Lipase (73 - 393 units/L) 48 L TSH (0.36 - 3.74) 0.77 Coagulation PT (10.4 - 12.4 secs) 10.8 INR 1.00 PTT (Ce) (22 - 38 secs) 30.1 D-Dimer (<255 ng/mLDDU) 544 H Hematology WBC (6.6 - 12.1 K/mm3) 9.7 RBC (3.45 - 5.01 M/mm3) 3.64 Hgb (10.7 - 13.9 g/dL) 10.9 Hct (32.1 - 42.1 %) 34.3 MCV (84.1 - 94.8 fL) 94 MCH (27 - 35 pg) 29.9 MCHC (32.2 - 34.1 gm/dL) 31.8 L RDW (12.4 - 16.5 %) 12.9 Plt Count (133 - 385 K/mm3) 361 MPV (9.1 - 12.7 fl) 9.6 Neut % (Auto) (56.5 - 79.4 %) 61.4 Lymph % (Auto) (14.3 - 34.3 %) 25.5 [place] % (Auto) (5.1 - 10.4 %) 7.0 Eos % (Auto) (0.1 - 3.0 %) 5.0 H Baso % (Auto) (0.1 - 1.0 %) 0.6 Neut # (Auto) (K/mm3) 6.0 Lymph # (Auto) (K/mm3) 2.5 [place] # (Auto) (K/mm3) 0.7 Eos # (Auto) (K/mm3) 0.49 Baso # (Auto) (K/mm3) 0.1 Toxicology Urine Opiates Screen (NEGATIVE) POSITIVE H Ur Barbiturates, Qual (NEGATIVE) NEGATIVE Ur Phencyclidine Scrn (NEGATIVE) NEGATIVE Ur Amphetamines Screen (NEGATIVE) NEGATIVE U Benzodiazepines Scrn (NEGATIVE) NEGATIVE Urine Cocaine Screen (NEGATIVE) NEGATIVE Urine Cannabinoids (NEGATIVE) NEGATIVE Urines Urine Color (YELLOW) YELLOW Urine Appearance (CLEAR) CLEAR Urine pH (5 - 9) 6.0 Ur Specific [place] (1.001 - 1.035) 1.013 Urine Protein (NEG) NEGATIVE Urine Glucose (UA) (NEG) NEGATIVE Urine Ketones (NEG) NEGATIVE Urine Blood (NEG) 2+ H Urine Nitrite (NEG) NEG Urine Bilirubin (NEG) NEGATIVE Urine Urobilinogen (NEG mg/dL) NEGATIVE Ur Leukocyte Esterase (NEG) NEG Urine RBC (NONE SEEN #/hpf) 0-2 Urine WBC (NONE SEEN #/hpf) 0-2 Ur Epithelial Cells (RARE - FEW #/HPF) RARE Urine Bacteria (RARE - FEW /HPF) RARE Urine Mucus (NONE SEEN) RARE Recent Impressions: RADIOLOGY - XR CHEST 2 V 10/14 2350 Report Impression - Status: SIGNED Entered: 10/16/2019 0019 IMPRESSION: Mild interstitial opacities in the right infrahi lar lung, probably vascular crowding or less likely atelectasis or interstitial infiltrates. SL:[JSYED-H] Impression By: [email or web address] Marilynn Cabezas M.D. Last Documented: Result Date Time B/P 147/83 10/15 50 B/P Mean 104 10/15 005 Temp 97.8 10/15 0051 Pulse 72 10/15 0051 Resp 17 10/15 005 Pulse Ox 99 10/14 2345 O2 Delivery Room air 10/14 2344 Patient Weight Weight (lb): Weight (oz): Weight (kg): 108.900 Physical Exam Cardiac: normal rhythm Lungs: clear to auscultation Incision site: well approximated edges Fundus: firm, below the umbilicus Lower extremities: Edema: trace Diagnosis, Assessment Plan Diagnosis, Assessment Plan Problem List/A P: 1. Preeclampsia 2. Generalized headaches Free text A P: BPs still occaisionally in severe range, plan to increase labetalol to 100mg BID. will add demerol 25mg IM prn for pt's chronic he adaches. Pt appears in NAD Electronically Signed by Bria Goel MD on 10/07 at 1229 RPT #:[id number] END OF REPORT 2019-10-16 13:03:00-00:[address] [facility] [place] [place] ([facility]) OB Postpart Progr Note REPORT#:[id number] REPORT STATUS: Signed DATE:10/16/19 TIME: 1303 PATIENT: FELICIA YORK UNIT #: [id number] ROOM/BED: [address] : 84 AGE: 33 SEX: F ATTEND: Mable Hoffman MD ADM AUTHOR: Sarah Kemp MD * ALL edits or amendments must be made on the el [employer]/computer document * Subjective Subjective Status/day: post operative, day 11 Patient reports: Patient reports: Yes: headache. Comments: pt states that BADILLO still present but she has not taken any [place] today. Pt desires to dc adamaris so she can be with baby Will reasses in few hours after Derby Objective Nursing Documentation Review Nursing data: The data set between the solid lines has been im ported from nursing documentation. Any exceptions have been noted be low under Provider comments. Feeding preference: Provider comments on imported nursing data: [] General VS: Vital Signs Date Temp Pulse Resp B/P B/P Mean Pulse Ox FiO2 10/14-10/15 97.8-97.9 68-78 17-18 147-179/77-10 5 101-129 99-100 Last Documented: Result Date Time B/P 147/83 10/15 0051 B/P Mean 104 10/15 005 Temp 97.8 10/15 0051 Pulse 72 10/15 0051 Resp 17 10/15 0051 Pulse Ox 99 10/14 2345 O2 Delivery Room air 10/14 2345 Patient Weight Weight (lb): Weight (oz): Weight (kg): 108.900 Notes: BP now 130/74 Nutrition assessment: The data set between the solid lines has been im ported from the dietitian's assessment. Any exceptions have been noted under Provider comments. BMI Calculated: 36.5 Nutrition related diagnosis: Nutrition diagnosis details: Nutrition problem: Nutrition etiology: Nutrition signs and symptoms: Nutrition prescription: Dietitian name: Assessment completed: Provider comments on imported dietitian assessme nt: Physical Exam Cardiac: normal rhythm Lungs: clear to auscultation Incision site: well approximated edges Fundus: firm, below the umbilicus Lower extremities: Edema: trace Result Findings/data: Laboratory Tests: 10/15 10/15 10/14 10/14 1020 0555 234 2311 Chemistry Sodium (135 - 145 mEq/L) 141 Potassium (3.5 - 5.0 mEq/L) 4.4 Chloride (100 - 115 mEq/L) 105 Carbon Dioxide (22 - 31 mEq/L) 30 Anion Gap (10 - 20) 10.90 BUN (7 - 18 mg/dL) 18 Creatinine (0.5 - 1.0 mg/dL) 1.0 Glomerular Filtr Rate (>60 ml/min) 63 Glucose (65 - 110 mg/dL) 95 Calcium (8.4 - 10.2 mg/dL) 8.5 Magnesium (1.8 - 2.4 mg/dL) 2.7 H Total Bilirubin (0.2 - 1.0 mg/dL) 0.2 AST (15 - 37 units/L) 19 ALT (12 - 78 units/L) 21 Total Alk Phosphatase (46 - 116 units/L) 81 B-Natriuretic Peptide (0 - 100 pg/mL) 542.13 H Total Protein (6.3 - 8.2 gm/dL) 5.4 L Albumin (3.4 - 4.8 gm/dL) 2.5 L Hematology WBC (6.6 - 12.1 K/mm3) 8.3 RBC (3.45 - 5.01 M/mm3) 3.37 L Hgb (10.7 - 13.9 g/dL) 10.1 L Hct (32.1 - 42.1 %) 31.8 L MCV (84.1 - 94.8 fL) 94 MCH (27 - 35 pg) 30.0 MCHC (32.2 - 34.1 gm/dL) 31.8 L RDW (12.4 - 16.5 %) 13.1 Plt Count (133 - 385 K/mm3) 334 MPV (9.1 - 12.7 fl) 10.1 Neut % (Auto) (56.5 - 79.4 %) 53.7 L Lymph % (Auto) (14.3 - 34.3 %) 30.0 [place] % (Auto) (5.1 - 10.4 %) 9.4 Eos % (Auto) (0.1 - 3.0 %) 5.8 H Baso % (Auto) (0.1 - 1.0 %) 0.6 Neut # (Auto) (K/mm3) 4.5 Lymph # (Auto) (K/mm3) 2.5 [place] # (Auto) (K/mm3) 0.8 Eos # (Auto) (K/mm3) 0.48 Baso # (Auto) (K/mm3) 0.1 Serology Nasal/Oral COVID-19 PCR (Negative) Negative Urines Ur Random Creatinine (mg/dL) 74.0 U Random Total Protein (mg/dL) 14.0 Protein/Creatinin Ratio (<200 mg/gcrea) 180.0 05/08 2311 Chemistry Sodium (135 - 145 mEq/L) 141 Potassium (3.5 - 5.0 mEq/L) 3.9 Chloride (100 - 115 mEq/L) 105 Carbon Dioxide (22 - 31 mEq/L) 29 Anion Gap (10 - 20) 10.80 BUN (7 - 18 mg/dL) 17 Creatinine (0.5 - 1.0 mg/dL) 1.1 H Glomerular Filtr Rate (>60 ml/min) 57 L Glucose (65 - 110 mg/dL) 95 Calcium (8.4 - 10.2 mg/dL) 8.9 Magnesium (1.8 - 2.4 mg/dL) 1.7 L Total Bilirubin (0.2 - 1.0 mg/dL) 0.2 AST (15 - 37 units/L) 20 ALT (12 - 78 units/L) 24 Total Alk Phosphatase (46 - 116 units/L) 96 Total Creatine Kinase (26 - 192 Units/L) 81 Troponin I (<0.056 ng/mL) 0.043 Total Protein (6.3 - 8.2 gm/dL) 6.7 Albumin (3.4 - 4.8 gm/dL) 2.9 L Lipase (73 - 393 units/L) 48 L TSH (0.36 - 3.74) 0.77 Coagulation PT (10.4 - 12.4 secs) 10.8 INR 1.00 PTT ([place]) (22 - 38 secs) 30.1 D-Dimer (<255 ng/mLDDU) 544 H Hematology WBC (6.6 - 12.1 K/mm3) 9.7 RBC (3.45 - 5.01 M/mm3) 3.64 Hgb (10.7 - 13.9 g/dL) 10.9 Hct (32.1 - 42.1 %) 34.3 MCV (84.1 - 94.8 fL) 94 MCH (27 - 35 pg) 29.9 MCHC (32.2 - 34.1 gm/dL) 31.8 L RDW (12.4 - 16.5 %) 12.9 Plt Count (133 - 385 K/mm3) 361 MPV (9.1 - 12.7 fl) 9.6 Neut % (Auto) (56.5 - 79.4 %) 61.4 Lymph % (Auto) (14.3 - 34.3 %) 25.5 [place] % (Auto) (5.1 - 10.4 %) 7.0 Eos % (Auto) (0.1 - 3.0 %) 5.0 H Baso % (Auto) (0.1 - 1.0 %) 0.6 Neut # (Auto) (K/mm3) 6.0 Lymph # (Auto) (K/mm3) 2.5 [place] # (Auto) (K/mm3) 0.7 Eos # (Auto) (K/mm3) 0.49 Baso # (Auto) (K/mm3) 0.1 Toxicology Urine Opiates Screen (NEGATIVE) POSITIVE H Ur Barbiturates, Qual (NEGATIVE) NEGATIVE Ur Phencyclidine Scrn (NEGATIVE) NEGATIVE Ur Amphetamines Screen (NEGATIVE) NEGATIVE U Benzodiazepines Scrn (NEGATIVE) NEGATIVE Urine Cocaine Screen (NEGATIVE) NEGATIVE Urine Cannabinoids (NEGATIVE) NEGATIVE Urines Urine Color (YELLOW) YELLOW Urine Appearance (CLEAR) CLEAR Urine pH (5 - 9) 6.0 Ur Specific [place] (1.001 - 1.035) 1.013 Urine Protein (NEG) NEGATIVE Urine Glucose (UA) (NEG) NEGATIVE Urine Ketones (NEG) NEGATIVE Urine Blood (NEG) 2+ H Urine Nitrite (NEG) NEG Urine Bilirubin (NEG) NEGATIVE Urine Urobilinogen (NEG mg/dL) NEGATIVE Ur Leukocyte Esterase (NEG) NEG Urine RBC (NONE SEEN #/hpf) 0-2 Urine WBC (NONE SEEN #/hpf) 0-2 Ur Epithelial Cells (RARE - FEW #/HPF) RARE Urine Bacteria (RARE - FEW /HPF) RARE Urine Mucus (NONE SEEN) RARE Recent Impressions: RADIOLOGY - XR CHEST 2 V 10/14 2350 Report Impression - Status: SIGNED Entered: 10/16/2019 001 IMPRESSION: Mild interstitial opacities in the right infrahi lar lung, probably vascular crowding or less likely atelectasis or interstitial infiltrates. SL:[JSYED-H] Impression By: [email or web address] Marilynn Cabezas M.D. Diagnosis, Assessment Plan Diagnosis, Assessment Plan Problem List/A P: 1. Preeclampsia 2. Generalized headaches Plan: routine care (monitor for BADILLO an d BP ) Electronically Signed by Sarah Kemp MD on 02/26 at 1308 RPT #:[id number] END OF REPORT 2019-10-16 06:14:00-00:00 [facility] ([facility]) OB Admission / H P REPORT#:[id number] REPORT STATUS: Signed DATE:10/16/19 TIME: 613 PATIENT: FELICIA YORK UNIT #: [id number] ROOM/BED: [address] : 84 AGE: 33 SEX: F ATTEND: Mable Hoffman MD ADM AUTHOR: Bria Goel MD * ALL edits or amendments must be made on the el [employer]/computer document * OB Admission H P Hx Chief complaint: elevated blood pressure HPI: 33yo A4 s/p repeat +BTL 10/05 for gestational hypertension at 36-37 weeks. Pt now readmitted for severe range BPs wi th headache and swelling. history: : 7 Term: 1 : 2 Living children: 3 Complications (prev preg): oligohydramnios Previous : low uterine trans incis (x2) Notes: delivered Past medical history: headaches Past surgical history: denies PSH Social history: no alcohol use, no tobacco use, no drug use Medications: Home Medications: PNV/FE FUM/FA ( MULTIVITAMIN) 1 TAB PO D AILY IBUPROFEN (MOTRIN) 600 MG PO Q6H PRN PRN PAIN SC ILANA 1-3 (USE 1ST) oxyCODONE (ROXICODONE) 5 MG PO Q6HPRN PRN SEVERE PAIN (SCALE 7-10) Allergies Coded Allergies: No Known Allergies (06/30/19) Objective General VS: Laboratory Tests: 10/15 10/14 10/14 10/14 0525 2347 2311 2311 Chemistry Sodium (135 - 145 mEq/L) 141 Potassium (3.5 - 5.0 mEq/L) 3.9 Chloride (100 - 115 mEq/L) 105 Carbon Dioxide (22 - 31 mEq/L) 29 Anion Gap (10 - 20) 10.80 BUN (7 - 18 mg/dL) 17 Creatinine (0.5 - 1.0 mg/dL) 1.1 H Glomerular Filtr Rate (>60 ml/min) 57 L Glucose (65 - 110 mg/dL) 95 Calcium (8.4 - 10.2 mg/dL) 8.9 Magnesium (1.8 - 2.4 mg/dL) 1.7 L Total Bilirubin (0.2 - 1.0 mg/dL) 0.2 AST (15 - 37 units/L) 20 ALT (12 - 78 units/L) 24 Total Alk Phosphatase (46 - 116 units/L) 96 Total Creatine Kinase (26 - 192 Units/L) 81 Troponin I (<0.056 ng/mL) 0.043 B-Natriuretic Peptide (0 - 100 pg/mL) 542.13 H Total Protein (6.3 - 8.2 gm/dL) 6.7 Albumin (3.4 - 4.8 gm/dL) 2.9 L Lipase (73 - 393 units/L) 48 L TSH (0.36 - 3.74) 0.77 Coagulation PT (10.4 - 12.4 secs) 10.8 INR 1.00 PTT (Ce) (22 - 38 secs) 30.1 D-Dimer (<255 ng/mLDDU) 544 H Hematology WBC (6.6 - 12.1 K/mm3) 8.3 9.7 RBC (3.45 - 5.01 M/mm3) 3.37 L 3.64 Hgb (10.7 - 13.9 g/dL) 10.1 L 10.9 Hct (32.1 - 42.1 %) 31.8 L 34.3 MCV (84.1 - 94.8 fL) 94 94 MCH (27 - 35 pg) 30.0 29.9 MCHC (32.2 - 34.1 gm/dL) 31.8 L 31.8 L RDW (12.4 - 16.5 %) 13.1 12.9 Plt Count (133 - 385 K/mm3) 334 361 MPV (9.1 - 12.7 fl) 10.1 9.6 Neut % (Auto) (56.5 - 79.4 %) 53.7 L 61.4 Lymph % (Auto) (14.3 - 34.3 %) 30.0 25.5 [place] % (Auto) (5.1 - 10.4 %) 9.4 7.0 Eos % (Auto) (0.1 - 3.0 %) 5.8 H 5.0 H Baso % (Auto) (0.1 - 1.0 %) 0.6 0.6 Neut # (Auto) (K/mm3) 4.5 6.0 Lymph # (Auto) (K/mm3) 2.5 2.5 [place] # (Auto) (K/mm3) 0.8 0.7 Eos # (Auto) (K/mm3) 0.48 0.49 Baso # (Auto) (K/mm3) 0.1 0.1 Toxicology Urine Opiates Screen (NEGATIVE) POSITIVE H Ur Barbiturates, Qual (NEGATIVE) NEGATIVE Ur Phencyclidine Scrn (NEGATIVE) NEGATIVE Ur Amphetamines Screen (NEGATIVE) NEGATIVE U Benzodiazepines Scrn (NEGATIVE) NEGATIVE Urine Cocaine Screen (NEGATIVE) NEGATIVE Urine Cannabinoids (NEGATIVE) NEGATIVE Urines Urine Color (YELLOW) YELLOW Urine Appearance (CLEAR) CLEAR Urine pH (5 - 9) 6.0 Ur Specific [place] (1.001 - 1.035) 1.013 Urine Protein (NEG) NEGATIVE Urine Glucose (UA) (NEG) NEGATIVE Urine Ketones (NEG) NEGATIVE Urine Blood (NEG) 2+ H Urine Nitrite (NEG) NEG Urine Bilirubin (NEG) NEGATIVE Urine Urobilinogen (NEG mg/dL) NEGATIVE Ur Leukocyte Esterase (NEG) NEG Urine RBC (NONE SEEN #/hpf) 0-2 Urine WBC (NONE SEEN #/hpf) 0-2 Ur Epithelial Cells (RARE - FEW #/HPF) RARE Urine Bacteria (RARE - FEW /HPF) RARE Urine Mucus (NONE SEEN) RARE Ur Random Creatinine (mg/dL) 74.0 U Random Total Protein (mg/dL) 14.0 Protein/Creatinin Ratio (<200 mg/gcrea) 180.0 Recent Impressions: RADIOLOGY - XR CHEST 2 V 10/14 2350 Report Impression - Status: SIGNED Entered: 10/16/2019 0019 IMPRESSION: Mild interstitial opacities in the right infrahi lar lung, probably vascular crowding or less likely atelectasis or interstitial infiltrates. SL:[YED-H] Impression By: Breezy Cabezas M.D. Recent Impressions-Last 72 Hrs CAT SCAN - CT HEAD/BRAIN W/O CONT 10/14 0010 Report Impression - Status: SIGNED Entered: 10/16/2019 0034 IMPRESSION: 1. No acute intracranial abnormalities are detec [place]. There is no CT evidence of acute intracranial ischemia, acute i ntracranial hemorrhage or intracranial mass. SL: 131 SL:[JSYED-H] Impression By: Breezy Cabezas M.D. Last Documented: Result Date Time B/P 147/83 10/15 50 B/P Mean 104 10/15 0051 Temp 97.8 10/15 0051 Pulse 72 10/15 0051 Resp 17 10/15 0051 Pulse Ox 99 10/14 2345 O2 Delivery Room air 10/14 2345 Vital Signs Date Temp Pulse Resp B/P B/P Mean Pulse Ox FiO2 10/14-10/15 97.8-97.9 68-78 17-18 147-179/77-10 5 101-129 99-100 Patient Weight Weight (lb): Weight (oz): Weight (kg): 108.900 Diagnosis, Assessment Plan Diagnosis, Assessment Plan Free Text A P: 33yo now POD#10 s/p repeat cs+BTL presents with severe preeclampsia. BP's improved on labetalol 100mg BID started in ER an d magnesium. Pt presented with headache, CT normal Pt received lasix in ER x 1, pulse ox normal Labs normal, plan to obs and recheck COVID statu s Continue magx24 hours, IV BP meds prn. continue PO labetalol Electronically Signed by Bria Goel MD on 02/26 at 0713 RPT #:[id number] END OF REPORT 2019-10-16 00:05:00-00:00 [facility] [place] ([facility]) EMERGENCY PROVIDER REPORT REPORT#:[id number] REPORT STATUS: Signed DATE:10/16/19 TIME: 4 PATIENT: FELICIA YORK UNIT #: [id number] ROOM/BED: [address] AGE: 33 SEX: F PCP PHYS: Sanna Hoffman MD SERVICE AUTHOR: Gian Kennedy MD * ALL edits or amendments must be made on the el [employer]/computer document * HPI-General Illness Free Text HPI Notes Free Text HPI Notes 33 yrs old female s/p repeat cs+BTL due to severe preeclampsia today c/o elevated blood pressiure, lo wer ext swelling, headachea. No chest pain, no sob, no dizziness. General Initial Greet Date/Time 10/15/196 Presentation Chief Complaint elevated blood pressure post par rita Review of Systems ROS Statements All systems rev neg except as marked. Complete sys rev neg except as marked. Past Medical History - Adult Stated Complaint HIGH BLOOD PRESSURE Allergies Coded Allergies: No Known Allergies (06/30/19) Home Medications Active Scripts IBUPROFEN (MOTRIN) 600 MG PO Q6H PRN PRN PAIN SC ILANA 1-3 (USE 1ST) IBUPROFEN (MOTRIN) 600 MG PO Q6H PRN PRN PAIN S BOB 1-3 (USE 1ST) #30 TAB Prov: 10/09/19 oxyCODONE (ROXICODONE) 5 MG PO Q6HPRN PRN SEVERE PAIN (SCALE 7-10) oxyCODONE (ROXICODONE) 5 MG PO Q6HPRN PRN SEVER E PAIN (SCALE 7-10) #20 TAB Prov: 10/09/19 Reported Medications PNV/FE FUM/FA ( MULTIVITAMIN) 1 TAB PO D AILY Review of Nursing Notes Rev avail, and agree Smoking status for patients 13 years old or olde r: Never Smoker Physical Exam Vital Signs Vital Signs First Documented: Result Date Time Pulse Ox 100 10/14 2300 B/P 179/105 10/14 2300 B/P Mean 129 / 2300 O2 Delivery Room air 10/14 2300 Temp 36.6 / 2300 Pulse 78 05/ 2300 Resp 18 10/14 2300 Last Documented: Result Date Time B/P 147/83 10/15 0051 B/P Mean 104 10/15 0051 Temp 36.6 10/15 0051 Pulse 72 05/ 0051 Resp 17 / 0051 Pulse Ox 99 / 2345 O2 Delivery Room air 10/14 2345 Review of Vital Signs Reviewed Physical Exam General/Const General/Const Awake, Alert, Well appearing MS Head Head Normocephalic Eyes Eyes PERRL Ears/Nose/Throat Ears/Nose/Throat Airway patent, Mucous membrane s moist, Pharynx NL MS Neck Neck Supple, No meningismus, Full range of abbie on, No swelling, Non-tender, No masses Resp/Chest Respiratory/Chest Breath sounds NL, Breath soun ds = bilat, No respiratory distress, No rales, No rhonchi, No wheezing Cardiovascular Cardiovascular Heart rate NL, Regular r hythm, Heart sounds NL, Cap refill not delayed, Peripheral circulation NL Abdomen/GI Abdomen/GI Soft, Non-tender, No guarding, No re bound MS Back Back Inspection NL, Painless range of motion, N on-tender, No CVA tenderness Lymphatic Lymphatic No gross adenopathy MS Upper Extrem Upper Extremity/MS Inspection NL, No swelling, Non-tender, No erythema, No deformity, Neurologic intact, Vascular intact, N o clubbing/cyanosis MS Wrist/Hand Wrist/Hand Inspection NL, No swelling, No erythema, Non-tender, No deformity, Neurologic intact, Vascular intact, No clubbing/ cyanosis MS Lower Extrem Lower Ext/Pelvis/MS Inspection NL, Non-tender, No erythema, No deformity, Neurologic intact, Vascular intact Text/Dict Notes Lower ext edema MS Ankle/Foot Ankle/Foot Inspection NL, No erythema, Non-tend er, No deformity, Neurologic intact, Vascular intact Text/Dict Notes lower ex edema Skin Skin Color NL, Warm, Dry, Turgor NL Neurologic Neurologic Oriented X3, Speech NL, No motor def icits, No sensory deficits Psychiatric Psychiatric Affect NL, Mood NL, Thought content NL Interpretation Diagnostics Lab Results Interpretation Results Laboratory Tests 10/15/19 2311: [Embedded Image Not Available] Laboratory Tests: 10/14 10/14 10/14 2347 2311 2311 Chemistry Sodium (135 - 145 mEq/L) 141 Potassium (3.5 - 5.0 mEq/L) 3.9 Chloride (100 - 115 mEq/L) 105 Carbon Dioxide (22 - 31 mEq/L) 29 Anion Gap (10 - 20) 10.80 BUN (7 - 18 mg/dL) 17 Creatinine (0.5 - 1.0 mg/dL) 1.1 H Glomerular Filtr Rate (>60 ml/min) 57 L Glucose (65 - 110 mg/dL) 95 Calcium (8.4 - 10.2 mg/dL) 8.9 Magnesium (1.8 - 2.4 mg/dL) 1.7 L Total Bilirubin (0.2 - 1.0 mg/dL) 0.2 AST (15 - 37 units/L) 20 ALT (12 - 78 units/L) 24 Total Alk Phosphatase (46 - 116 units/L) 96 Total Creatine Kinase (26 - 192 Units/L) 81 Troponin I (<0.056 ng/mL) 0.043 B-Natriuretic Peptide (0 - 100 pg/mL) 542.13 H Total Protein (6.3 - 8.2 gm/dL) 6.7 Albumin (3.4 - 4.8 gm/dL) 2.9 L Lipase (73 - 393 units/L) 48 L TSH (0.36 - 3.74) 0.77 Coagulation PT (10.4 - 12.4 secs) 10.8 INR 1.00 PTT (Ce) (22 - 38 secs) 30.1 D-Dimer (<255 ng/mLDDU) 544 H Hematology WBC (6.6 - 12.1 K/mm3) 9.7 RBC (3.45 - 5.01 M/mm3) 3.64 Hgb (10.7 - 13.9 g/dL) 10.9 Hct (32.1 - 42.1 %) 34.3 MCV (84.1 - 94.8 fL) 94 MCH (27 - 35 pg) 29.9 MCHC (32.2 - 34.1 gm/dL) 31.8 L RDW (12.4 - 16.5 %) 12.9 Plt Count (133 - 385 K/mm3) 361 MPV (9.1 - 12.7 fl) 9.6 Neut % (Auto) (56.5 - 79.4 %) 61.4 Lymph % (Auto) (14.3 - 34.3 %) 25.5 [place] % (Auto) (5.1 - 10.4 %) 7.0 Eos % (Auto) (0.1 - 3.0 %) 5.0 H Baso % (Auto) (0.1 - 1.0 %) 0.6 Neut # (Auto) (K/mm3) 6.0 Lymph # (Auto) (K/mm3) 2.5 [place] # (Auto) (K/mm3) 0.7 Eos # (Auto) (K/mm3) 0.49 Baso # (Auto) (K/mm3) 0.1 Toxicology Urine Opiates Screen (NEGATIVE) POSITIVE H Ur Barbiturates, Qual (NEGATIVE) NEGATIVE Ur Phencyclidine Scrn (NEGATIVE) NEGATIVE Ur Amphetamines Screen (NEGATIVE) NEGATIVE U Benzodiazepines Scrn (NEGATIVE) NEGATIVE Urine Cocaine Screen (NEGATIVE) NEGATIVE Urine Cannabinoids (NEGATIVE) NEGATIVE Urines Urine Color (YELLOW) YELLOW Urine Appearance (CLEAR) CLEAR Urine pH (5 - 9) 6.0 Ur Specific [place] (1.001 - 1.035) 1.013 Urine Protein (NEG) NEGATIVE Urine Glucose (UA) (NEG) NEGATIVE Urine Ketones (NEG) NEGATIVE Urine Blood (NEG) 2+ H Urine Nitrite (NEG) NEG Urine Bilirubin (NEG) NEGATIVE Urine Urobilinogen (NEG mg/dL) NEGATIVE Ur Leukocyte Esterase (NEG) NEG Urine RBC (NONE SEEN #/hpf) 0-2 Urine WBC (NONE SEEN #/hpf) 0-2 Ur Epithelial Cells (RARE - FEW #/HPF) RARE Urine Bacteria (RARE - FEW /HPF) RARE Urine Mucus (NONE SEEN) RARE Ur Random Creatinine (mg/dL) 74.0 U Random Total Protein (mg/dL) 14.0 Protein/Creatinin Ratio (<200 mg/gcrea) 180.0 Recent Impressions: CAT SCAN - CT HEAD/BRAIN W/O CONT 10/14 0010 Report Impression - Status: SIGNED Entered: 10/16/2019 0034 IMPRESSION: 1. No acute intracranial abnormalities are detec [place]. There is no CT evidence of acute intracranial ischemia, acute i ntracranial hemorrhage or intracranial mass. SL: 131 Impression By: Bhavana - Liz Owen RADIOLOGY - XR CHEST 2 V 10/14 2350 Report Impression - Status: SIGNED Entered: 10/16/2019 0019 IMPRESSION: Mild interstitial opacities in the right infrahi lar lung, probably vascular crowding or less likely atelectasis or interstitial infiltrates. SL:[[id number]] Impression By: [email or web address] - Garrett Cabezas M.D. Lab Statement Laboratory studies reviewed and considered in th e medical decision-making. Imaging Statement Radiographic studies reviewed and considered in the medical decision-making. Lab Imaging Statement Laboratory radiographic studies reviewed and con sidered in the medical decision-making. Point of Care Testing Pulse Oximetry Pulse Ox % 99 On: Room air Interpretation Interpreted by me, Pulse oximetr y normal Time 0236 ECG #1 Interpretation Text/Dict Note preeclampsia ECG Documented in MUSE Yes Date 10/15/19 Time 2319 Interpreted by and reviewed by me, ED physician NL ECG Interpretation Normal rate, Normal sinus rhythm, No acute ischemic changes, No STEMI, Normal QRS, Normal ST waves, Normal T waves, Normal axis, Normal intervals, No change from prior ECGs, Maria Isabel quate tracing Rate 70 Re-Evaluation MDM Free Text MDM Notes Free Text MDM Notes 33 yrs old female postp artum with h/o preeclampsia, c/o elevated blood pressure and heaches. Preeclampsia, headaches, fluid overload. Normal cbc, cmp, ua, lipase Normal cardiac enzymes Normal liver function. Normal ct head Normal ekg Pt started on Labetolol protocol blood pressure improved. Discussed pt with oncall doctor, accepted pt to the floor. ED Course Medication(s) Ordered Medication(s) Ordered: Cardiovascular Drugs Sig/Renan Start time Last Medication Dose Route Stop Time Status Admin Labetalol HCl 20 MG ONCE PRN 10/14 2315 AC IV Labetalol HCl 40 MG ASDIR PRN 10/14 2315 AC IV Labetalol HCl 80 MG ASDIR PRN 10/14 2315 AC IV Central Nervous System Agents Sig/Renan Start time Last Medication Dose Route Stop Time Status Admin Undefined Medication 100 ML ASDIR 10/15 0115 CK D 10/15 IV 10/29 0114 0231 Undefined Medication 500 ML ASDIR 10/15 0115 CK D 10/15 IV 10/29 0114 2220 Electrolytic, Caloric, And Clayton Sig/Renan Start time Last Medication Dose Route Stop Time Status Admin Calcium Gluconate 1,000 MG BOLUS ASDIR PRN 05 9 0115 AC IV 12/14 0114 Consultation Consultation Referral/Consult Name Sanna Hoffman MD Sales Manager [employer] Called [employer], On-call physician Requested Call Time 0011 Requested Call Date 10/16/19 Call Returned Call returned Call Returned Time 0011 Call Returned Date 10/16/19 Sales Manager [employer] Will see patient, Agrees with eval, Agrees with plan Free Text Consult Notes accepted pt to the floor Patient Discharge Departure Vital Signs/Condition Vital Signs First Documented: Result Date Time Pulse Ox 100 10/140 B/P 179/105 10/14 2300 B/P Mean 129 / 2300 O2 Delivery Room air 10/14 2300 Temp 36.6 / 2300 Pulse 78 05/ 2300 Resp 18 10/14 2300 Last Documented: Result Date Time B/P 147/83 10/15 0051 B/P Mean 104 / 0051 Temp 36.6 10/15 0051 Pulse 72 05/ 0051 Resp 17 / 0051 Pulse Ox 99 / 2345 O2 Delivery Room air 10/14 2345 All vital signs available at the time of this en try have been reviewed. Condition Improved, Stable Clinical Impression Clinical Impression Primary Impression: Preeclampsia Secondary Impressions: Elevated blood pressure r eading, Generalized headaches Time of Impression 000 Disposition Decision Admit Admit Physician Name Sanna Hoffman MD Admit Physician Primary Care Physician, [employer], Rubber Mold Maker Physician Request Time 5 Request Date 10/16/19 )( Admission Accepts Yes )( Accepted Time 5 )( Accepted Date 10/16/19 Call Information will see patient, agrees with eval, agrees with plan Discharge/Care Plan Counseled Regarding Diagnosi s, Lab results, Need for admission, Need for follow- up, When to return to ED Rx Drug Database Reviewed Yes Referrals Sanna Hoffman MD (PCP) Admit Note I have spoken with the patie nt and/or caregivers. I have explained the patient's condition, diagnoses and gabe atment plan based on the information available to me at this time. I have answered the patient's and/ or caregiver's questions and addressed any concerns. The patient and/or careg amisha have as good an understanding of the patient 's diagnosis, condition and treatment plan as can be expected at this point. The patient has been stabilized within the capability of the emergency department. The patient wi ll be transported for further care and management or will be moved to an observation or inpatient service. I have communicated with the staff or medical p ractitioner taking over this patient's care. Quality Measures BP F/U for HTN F/u with PCP/other doc 12-Lead ECG for CP Performed documented Preg Test for Women w/Abd Pain Female age 14-50, not Smoking Cessation Screened, non user Tobacco Screening/Cessation 18 years or older, D enies tobacco use at 0932 [facility] #:[id number] END OF REPORT 2019-10-15 23:19:00-00:00 [id number] [facility] [address], [place] [address] PATIENT NAME: FELICIA YORK ADMIT DATE: 10/16/19 ACCOUNT NO: [id number] ROOM NO: F.[id number] AGE: 33 SEX: F ADMITTING PHYSICIAN: Sanna Hoffman MD ATTENDING PHYSICIAN: Sanna Hoffman MD Order: [id number] Test Reason : HYPERTENSION / CHEST PAIN Test Date/Time Stamp: FriOct 15 2019 23:19:50 Blood Pressure : / mmHG Vent. Rate : 070 BPM Atrial Rate : 070 BPM P-R Int : 150 ms QRS Dur : 084 ms QT Int : 434 ms P-R-T Axes : 002 068 087 degree s QTc Int : 468 ms Normal sinus rhythm T wave abnormality, consider anterior ischemia Prolonged QT Abnormal ECG No previous ECGs available Confirmed by CARA HUNTER, JESS ([id number]) on 10/18/19 4:45:59 PM Referred By: DOES_NOT KNOW Confirmed by:JESS MONTIEL MD Electronically Signed by Jess Park MD on 0 10/18/19 at 1646 PATIENT NAME: FELICIA YORK 813 2019-10-09 07:34:00-00:00 [facility] ([facility]) OB Postpart Progr Note REPORT#:[id number] REPORT STATUS: Signed DATE:10/09/19 TIME: 733 PATIENT: FELICIA YORK UNIT #: [id number] ROOM/BED: [address] : [address] AGE: 33 SEX: F ATTEND: Mable Hoffman MD ADM AUTHOR: Sanna Hoffman MD * ALL edits or amendments must be made on the [email or web address] document * Subjective Subjective Status/Day: post operative (d3) Patient reports: Patient reports: Yes no complaints, Yes pain management effectiv e, Yes tolerating po well Objective Nursing Documentation Review Nursing Data: The data set between the solid lines has been im ported from nursing documentation. Any exceptions have been noted be low under Provider comments. Feeding preference: Provider comments on imported nursing data: [] General VS: Vital Signs: Date Time Temp Pulse Resp B/P B/P Pulse O2 O2 F low FiO2 Mean Ox Delivery Rate 10/08 400 97.7 71 17 152/79 10/077 98.0 62 18 156/84 10/07 2009 98.0 65 18 148/79 Patient Weight Weight (lb): 244 Weight (oz): Weight (kg): 110.677 Physical Exam Neuro: Exam: alert, oriented x3, NAD Abdomen: soft, no abnormal tenderness Incision site: well approximated edges, dry, no drainage, no inflammation Uterus: firm, non-tender Diagnosis, Assessment Plan Diagnosis, Assessment Plan Assessment: nml progress Plan: routine care, circumcision toda y, discharge today at 0736 RPT #:[id number] END OF REPORT 2019-10-08 07:50:00-00:00 [facility] ([facility]) OB Postpart Progr Note REPORT#:[id number] REPORT STATUS: Signed DATE:10/08/19 TIME: 0750 PATIENT: FELICIA YORK UNIT #: [id number] [facility] : [facility] AGE: 33 SEX: F ATTEND: Mable Hoffman MD ADM AUTHOR: Sanna Hoffman MD * ALL edits or amendments must be made on the el [employer]/computer document * Subjective Subjective Status/Day: post operative (d2) Patient reports: Patient reports: Yes tolerating po well, Yes tolerating ambulati on Comments: c/o pain 9/10 "but not bad" Objective Nursing Documentation Review Nursing Data: The data set between the solid lines has been im ported from nursing documentation. Any exceptions have been noted be low under Provider comments. Feeding preference: Provider comments on imported nursing data: [] General VS: Vital Signs: Date Time Temp Pulse Resp B/P B/P Pulse O2 O2 F low FiO2 Mean Ox Delivery Rate 10/07 400 98.0 74 18 143/69 10/07 040 98.1 74 18 143/69 93.5 10/06 2340 98.2 76 20 128/65 10/06 2341 98.2 76 20 128/65 86.0 10/06 2024 97.9 71 20 131/76 94.6 10/06 1945 18 10/06 0900 97.5 65 18 118/69 100 Patient Weight Weight (lb): 244 Weight (oz): Weight (kg): 110.677 Physical Exam Neuro: Exam: alert, oriented x3, NAD Abdomen: soft, no abnormal tenderness Incision site: well approximated edges, dry, no drainage, no inflammation Uterus: firm, non-tender Diagnosis, Assessment Plan Diagnosis, Assessment Plan Assessment: nml progress Plan: routine care at 0751 RPT #:[id number] END OF REPORT 2019-10-07 14:33:00-00:00 [facility] ([facility]) OB Postpart Progr Note REPORT#:[id number] REPORT STATUS: Signed DATE:10/07/19 TIME: 1433 PATIENT: FELICIA YORK UNIT #: [id number] ROOM/BED: [address] : 84 AGE: 33 SEX: F ATTEND: Mable Hoffman MD ADM AUTHOR: Sanna Hoffman MD * ALL edits or amendments must be made on the [employer]/computer document * Subjective Subjective Status/Day: post operative (d1) Patient reports: Patient reports: Yes tolerating po well Comments: c/o pain -03/18 even with oxycodone. Objective Nursing Documentation Review Nursing Data: The data set between the solid lines has been im ported from nursing documentation. Any exceptions have been noted be low under Provider comments. Feeding preference: Provider comments on imported nursing data: [] General VS: Vital Signs: Date Time Temp Pulse Resp B/P B/P Pulse O2 O2 F low FiO2 Mean Ox Delivery Rate 10/06 353 97.9 73 18 110/63 10/06 0354 97.9 73 18 110/63 78.4 10/06 22 98.0 72 20 127/68 10/06 002 98.1 72 20 127/68 88.1 10/050 74 16 125/69 97 10/050 97.6 69 20 125/69 97 10/05 2001 82 100 10/06 1999 81.0 10/06 1999 71 18 118/56 100 10/05 1956 74 100 10/06 1951 71 100 10/05 1946 74 100 10/05 1945 92.0 10/05 1945 70 18 128/67 100 10/05 1942 68 100 10/05 1937 76 100 10/05 1932 67 100 10/05 1930 95.0 10/05 1930 69 18 134/68 100 10/05 1927 79 100 10/05 1922 69 98 10/05 1917 69 100 10/05 1915 91.0 10/05 1915 68 17 132/63 100 10/05 191 68 100 10/05 1907 74 100 10/05 1902 76 100 10/05 1859 84.0 10/05 1859 74 125/60 10/05 1859 17 100 10/05 1857 77 100 10/05 1852 80 100 10/05 1847 77 99 10/05 1845 85.0 10/05 1845 77 22 126/59 10/05 1842 82 98 10/05 1837 74 98 10/05 1832 75 97 10/05 1830 78.0 10/05 1830 78 20 114/55 10/05 1827 86 97 10/05 1822 82 98 10/05 1817 102 99 10/05 1815 89.0 10/05 1815 88 18 130/62 99 10/05 1812 86 100 10/05 1807 89 97 10/05 1802 92 98 10/05 1758 97.5 18 10/05 1758 89.0 10/05 1758 97 129/62 10/05 1757 95 100 10/05 1443 94.0 10/05 1443 88 132/68 Patient Weight Weight (lb): 244 Weight (oz): Weight (kg): 110.677 Physical Exam Neuro: Exam: alert, oriented x3, NAD Abdomen: soft, no abnormal tenderness Incision site: well approximated edges, dry, no drainage, no inflammation Uterus: firm, non-tender Result Findings/Data: Laboratory Tests: 10/06 10/05 0350 1510 Hematology Hgb (10.7 - 13.9 g/dL) 9.3 L Hct (32.1 - 42.1 %) 28.3 L Serology Nasal/Oral COVID-19 PCR (Negative) Negative Diagnosis, Assessment Plan Diagnosis, Assessment Plan Assessment: nml progress Plan: routine care at 1434 RPT #:[id number] END OF REPORT 2019-10-06 17:47:00-00:00 [facility] OB Delivery Note REPORT#:[id number] REPORT STATUS: Signed DATE:10/06/19 TIME: 1747 PATIENT: FELICIA YORK UNIT #: [id number] ROOM[address]BED: [address] : [address] AGE: 33 SEX: F ATTEND: Mable Hoffman MD ADM AUTHOR: Sanna Hoffman MD * ALL edits or amendments must be made on the el [employer]/computer document * OB Delivery Nursing Documentation Review Nursing data: The data set between the solid lines has been im ported from nursing documentation. Any exceptions have been noted be low under Provider comments. _ ROM date: ROM time: Membranes rupture method: AROM Amniotic fluid color: Clear Amniotic fluid amount: EGA (weeks/days): 36.2 EGA at admit (weeks): EGA at delivery (weeks): 36 Steroids prior to arrival: Antibiotic prophylaxis given: Yes evaluation at delivery: Delivery date infant A: Delivery time infant A: Birthweight (gm) A: Weight (lb) A: Weight (oz) A: Gender infant A: Male 1 minute infant A: 5 minutes infant A: 10 minutes infant A: Cord pH obtained A: Vacuum time A: Vacuum # pulls A: Vacuum # popoffs A: QBL at delivery: __ Provider comments on imported nursing data: [] Pre-delivery [place] evaluation at delivery: NRP certified GEE dewey Admission EGA (wks/days): 36 weeks EGA at delivery (wks/days): 36 weeks Baby A Information Baby A information Delivery date: 10/06/19 Delivery time: 1722 status: live born Wt of baby (lbs/oz): 6/8 Gender: male 1 minute: 8 5 minutes: 9 Presentation: vertex Nuchal cord Baby A Nuchal cord: no Delivery section Primary indication: elective repeat , p rodromal labor, abd pain Op/Inv Proc Note - Brief )( Procedure(s) performed: repeat low tr ansverse c/s, bilateral tubal ligation )( Primary Surgeon: Shauna Hoffman )( Manager Billing(s): Zoey Miller )( Pre-procedure diagnosis: 36 wks, preeclampsia, prodromal labor, abdominal pain, prev C/S, desires sterilization )( Post-procedure diagnosis: same )( Technique/Procedure: LTCS, bilateral salpingectomy Anesthesia: combined spinal/epidural )( Estimated blood loss (ml): 600 )( Specimen removed/altered: bilateral tubes )( Complications: none )( Finding(s): nlut/ov/tubes. hemostatic. counts correct. Condition: stable Blood Loss/Details Blood loss at delivery: <1000 ml, no more than e xpected at 1750 RPT #:[id number] END OF REPORT 2019-10-06 14:24:00-00:[address] [facility] ([facility]) OB Antepartum Prog Note REPORT#:[id number] REPORT STATUS: Signed DATE:10/06/19 TIME: 1424 PATIENT: FELICIA YORK UNIT #: [id number] ROOM/BED: [address] : [address] AGE: 33 SEX: F ATTEND: Saad Hoffman MD ADM AUTHOR: Sanna Hoffman MD * ALL edits or amendments must be made on the [employer]/computer document * Subjective Subjective Admission EGA (wks/days): 36 weeks Patient reports: Patient reports: Yes abdominal pain, Yes contractions, Y es normal movement, Yes headache , No vaginal bleeding, No leaking fluid Objective Nursing Documentation Review Nursing data: The data set between the solid lines has been im ported from nursing documentation. Any exceptions have been noted be low under Provider comments. ROM date: ROM time: Labor onset date: Labor onset time: EGA at admit (weeks): Provider comments on imported nursing data: [] VS: Last Documented: Result Date Time B/P Mean 98.0 10/05 1044 B/P 141/68 10/05 1044 Pulse 88 10/05 1044 Temp 98.0 10/05 1042 Vital Signs Date Temp Pulse Resp B/P B/P Mean Pulse Ox FiO2 10/05 98.0 88-90 121-141/67-71 89.0-98.0 Patient Weight Weight (lb): Weight (oz): Weight (kg): HEENT: normocephalic w/o injury Neuro: Exam: alert, oriented x3 Abdomen: gravid, soft, discomfort soetro in lower a bd Uterus: non-tender Baby A: Baby A baseline: 135 bpm Baby A variability: moderate 6-25 bpm Baby A accelerations: 15 X 15 Baby A decelerations: none Findings/data: Laboratory Tests: 10/05 10/04 0215 2300 Hematology WBC (6.6 - 12.1 K/mm3) 11.7 RBC (3.45 - 5.01 M/mm3) 3.55 Hgb (10.7 - 13.9 g/dL) 10.6 L Hct (32.1 - 42.1 %) 32.3 MCV (84.1 - 94.8 fL) 91 MCH (27 - 35 pg) 29.9 MCHC (32.2 - 34.1 gm/dL) 32.8 RDW (12.4 - 16.5 %) 13.2 Plt Count (133 - 385 K/mm3) 228 MPV (9.1 - 12.7 fl) 10.7 Neut % (Auto) (56.5 - 79.4 %) 66.8 Lymph % (Auto) (14.3 - 34.3 %) 20.9 [place] % (Auto) (5.1 - 10.4 %) 8.9 Eos % (Auto) (0.1 - 3.0 %) 2.3 Baso % (Auto) (0.1 - 1.0 %) 0.3 Neut # (Auto) (K/mm3) 7.8 Lymph # (Auto) (K/mm3) 2.5 [place] # (Auto) (K/mm3) 1.0 Eos # (Auto) (K/mm3) 0.27 Baso # (Auto) (K/mm3) 0.0 Serology Treponema pallidum Ab (NONREACTIVE) NONREACTIVE Hep Bs Antigen (NONREACTIVE) NONREACTIVE Hepatitis C Antibody (NONREACTIVE) NONREACTIVE Hep C Ab Signal/Cutoff (<0.80) 0.13 Urines Urine Color (YELLOW) DANIELA Urine Appearance (CLEAR) Slightly-Cloudy Urine pH (5 - 9) 5.0 Ur Specific [place] (1.001 - 1.035) 1.035 Urine Protein (NEG) 1+ H Urine Glucose (UA) (NEG) NEGATIVE Urine Ketones (NEG) NEGATIVE Urine Blood (NEG) NEG Urine Nitrite (NEG) NEG Urine Bilirubin (NEG) 1+ H Urine Urobilinogen (NEG mg/dL) 4.0 H Ur Leukocyte Esterase (NEG) NEG Urine RBC (NONE SEEN #/hpf) 0-2 Urine WBC (NONE SEEN #/hpf) 0-2 Ur Epithelial Cells (RARE - FEW #/HPF) RARE Urine Bacteria (RARE - FEW /HPF) FEW Urine Mucus (NONE SEEN) 4+ Diagnosis, Assessment Plan Diagnosis, Assessment Plan Free Text A P: Pt with early onset of preec lampsia without severe features, presented overnight to [facility] c/o contractions and severe pain across prev C/S incision. admitted for steroids and observation with concern for possib le C/S scar dehiscence. pt continues to have lower abd pain and some ctx, although less frequent than last night. good FM. no VB/LOF. pt scheduled for repe at C/S with BTL 5/5. status reassuring on NST. options d/w pt, prefer s to proceed with repeat C/S and BTL today secondary to pain and ctx. at 1427 RPT #:[id number] END OF REPORT 2019-10-06 05:07:00-00:00 [facility] ([facility]) Clinical Note REPORT#:[id number] REPORT STATUS: Signed DATE:10/06/19 TIME: 506 PATIENT: FELICIA YORK UNIT #: [id number] ROOM/BED: [address] : 84 AGE: 33 SEX: F ATTEND: Mable Hoffman MD ADM AUTHOR: Sarah Kemp MD * ALL edits or amendments must be made on the el [employer]/computer document * Clinical Note Note: pt presented to [facility] co left incisional pain which is burning in nature. no cont no bleeding good Fm. Pt evaulated by hospitalist who is concerned abo ut incision and/or uterine rupture FHT reactive rare cont will observe for few hours and repeat NST Electronically Signed by Sarah Kemp MD on 09/08 02/26 at 0510 RPT #:[id number] END OF REPORT 2019-10-06 05:07:00-00:00 [facility] ([facility]) Clinical Note REPORT#:[id number] REPORT STATUS: Signed DATE:10/06/19 TIME: 0507 PATIENT: FELICIA YORK UNIT #: [id number] ROOM/BED: [address] : 84 AGE: 33 SEX: F ATTEND: Mable Hoffman MD ADM AUTHOR: Sarah Kemp MD * ALL edits or amendments must be made on the [email or web address] document * See Addendum Clinical Note Note: pt presented to [facility] co left incisional pain which is burning in nature. no cont no bleeding good Fm. Pt evaulated by hospitalist who is concerned abo ut incision and/or uterine rupture FHT reactive rare cont will observe for few hours and repeat NST Electronically Signed by Sarah Kemp MD on 09/08 02/26 at 0510 Addendum 1: 10/06/19 0511 by Sarah Kemp MD see admit note for more details Electronically Signed by Sarah Kemp MD on 09/08 02/26 at 0512 RPT #:[id number] END OF REPORT 2019-10-06 03:01:00-00:00 [id number] [facility] [address], [place] [address] PATIENT NAME: FELICIA YORK ADMIT DATE: 10/06/19 ACCOUNT NO: [id number] ROOM NO: [facility] AGE: 33 SEX: F ADMITTING PHYSICIAN: Sanna Hoffman MD ATTENDING PHYSICIAN: Sanna Hoffman MD ADMISSION DATE: 10/06/2019 Patient seen for evaluation on 10/05/2019, in OB ED by Myrna Perry MD, per request of Dr. Kemp for patient of Dr. Hoffman. The patient admitted to [facility]U from OB ED. HISTORY OF PRESENT ILLNESS: The patient is a 33- year-old, G6, P1-1-3-2 with last menstrual period on 01/24/2019, and [facility] ed date of confinement 10/31/2019. She presented at 36 and 2/7th weeks on 10/05/2019 and was transferred to [facility]U after midnight on the at 36 and 3/7th weeks. She presented complaining of cramping 7/10 on the pa in scale that began approximately 6:00 p.m. on the . She stated the cramping was come and go. No pattern to the discomfort . She states it was a burning, stinging pain in the left lower quadrant greater than the right. She denied vaginal bleeding or leakage of fluid. She reported a possibl e loss of mucus plug and reported good movement. She reported headache 6 to 7/10 on the pain scale. She took Tylenol without relief. She denies scotomata or other preeclampsia symptoms. She reports nausea. Otherwise, no fever, chills, vomiting, diarrhea, constipation, or dysuria. She denied recent francisco el for herself or contacts. She denied sore throat, coug h, shortness of breath, anosmia, diarrhea, or fever. She denies knowing anyone with COVID. Her prena maral care has been with Dr. Hoffman beginning at approximately 10 we eks' gestation. She reports history of preeclampsia diagnosed at approximately 24 weeks ' gestation. She has not been on any medications for preec lampsia and her pressures have been well controlled with bedrest. The is also gertrudis rkable for history of section in her second delivery. She states she was sched uled to deliver by repeat at 37 weeks due to the preeclampsia. Chey manzanares did receive betamethasone 2 doses earlier in the at approximately 28 to 29 weeks. She has not received magnesium previously. She was admitted twice during this with labor symptoms. Her next vi sit with Dr. Hoffman was scheduled for the with a repeat on the . PAST MEDICAL HISTORY: Negative. PAST SURGICAL HISTORY: Multiple laparoscopies fo r endometriosis with ablation in 2001, 2003 and 2014 with the latter she also underwent laparoscopic appendectomy and also for surgeries sec tion in 2011. ALLERGIES: NO KNOWN DRUG ALLERGIES. MEDICATIONS: vitamins with as needed Ty lenol, Tums and tramadol. OBSTETRICAL HISTORY: In 2009, full-term vaginal delivery of a female infant PATIENT NAME: FELICIA YORK 730 weighing 9 pounds, no complications. In 2011, 36-week section without trial of labor due to oligohydramnios, d elivered of a female infant weighing 6 pounds 7 ounces. GYNECOLOGIC HISTORY: Menarche at age 14 with irr egular periods every 6 to 8 weeks, irregular in length. Also, heavy with mod erate cramping. As stated above, she has a history of endometriosis with laparoscopic ablation on at least 3 occasions. The patient denies prior hi story of STDs and she reports abnormal Pap smears beginning in 2008, she underw ent cryotherapy at that time. Her last Pap was approximately 3 years ago. SOCIAL HISTORY: The patient reports off and on smoking a few cigarettes per day for approximately 12 years, she quit in 03/2019. She reports occasional prepregnancy alcohol use and denies illicit drugs. She lives with the father of her baby, a 30-year-old male with elevated sam sterol. Also, her 2 children and his 2 children live in the same home. Also, stay with them appliance parts counter clerk as there is joint custody with their respective ex- spouse's. 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 She has bee n on bedrest, since early and has not worked during the [employer]. FAMILY HISTORY: Mother with hypertension. Father without health problems. Maternal grandmother with congestive he art failure. Maternal grandfather from unknown causes. Patern al grandmother with Alzheimer's. Paternal grandfather with small cell carcinoma. The patient denies history of mental retarda tion or defects in her family or her partner's family. She badillo s one sister reported as living and healthy and her 2 daughters are healthy. REVIEW OF SYSTEMS: A 10-point review of systems is negative except as stated above. PHYSICAL EXAMINATION: GENERAL: The patient is a well-nourished, well-d eveloped white female in no acute distress, lying on triage stretcher in OB ED. VITAL SIGNS: Height 5 feet 8 .5 inches, weight prior to the 198 pounds and at most recent visit to clinic 244 pounds. Blood pressure 137/76, pulse 81, respirations 18, and temperature 98.2. HEAD AND NECK: Within normal limits without lymp hadenopathy or thyromegaly. CHEST: Clear to auscultation bilaterally. HEART: With regular rate and rhythm. BREASTS: Deferred. ABDOMEN: Soft, but exquisitely tender on the lef t lower quadrant, but no rebound, no hernia is palpated. PELVIC: The patient is long, closed, and posteri or on serial checks. EXTREMITIES: Without edema. Bilateral patellar r eflexes, 2+. NEUROLOGIC: Nonfocal. The patient is awake, aler t, and oriented. NST is category 1 with basel ine heart tones in the 120s with multiple 15 x 15 accelerations, no decelerations, and no contr actions. LABORATORY DATA: Urinalysis shows 1+ bilirubin, rare epithelial cells, 0 to 2 WBCs, 0 to 2 RBCs, and few bacteria. ASSESSMENT/PLAN: This is a 33-year-old, G6, P1-1 -3-2 at 36 and 3/7th weeks at PATIENT NAME: FELICIA YORK 730 the time of disposition. She presented complaini ng of left lower quadrant pain. She has a history of prior sectio n. I spoke to Dr. Kemp and she agrees with the plan to admit the patient on OBs on [facility]U to give a single dose of steroids for late rescue dose, w ill give [place] as needed for pain control and continually monitor-observing f or possible dehiscence. Will keep the patient n.p.o. for now. Dictated By: Myrna Perry MD WT: HP:F.ROOSEVELT/ADRIANA/JUVENCIO Conf#: [id number]/DID#: [id number] Authenticated and Edited by Myrna Perry MD On 10/30/19 8:41:45 PM Electronically Signed by Myrna Perry MD on at 2043 PATIENT NAME: FELICIA YORK 730 2019-09-08 15:22:00-00:00 [facility] ([facility]) Clinical Note REPORT#:[id number] REPORT STATUS: Signed DATE:09/08/19 TIME: 1522 PATIENT: FELICIA YORK UNIT #: [id number] ROOM/BED: : 84 AGE: 33 SEX: F ATTEND: Mable Hoffman MD ADM DT: AUTHOR: Sanna Hoffman MD * ALL edits or amendments must be made on the [email or web address] document * Clinical Note Note: Pt seen in MAC. c/o being miserable on bedrest. poor sleep. c/o feeling lower abd pressure, no ctx. c/o headaches despite taki ng tramadol around the clock. c/o vag discharge. c/o constipation. good FM. no VB. 133/75. abd soft, NT. FHT 140s, Cat I. toco quiet. will check PIH labs, give IV fluid. at 1524 RPT #:[id number] END OF REPORT 2019-08-18 10:42:00-00:00 [facility] ([facility]) OB Antepartum Prog Note REPORT#:[id number] REPORT STATUS: Signed DATE:08/18/19 TIME: 1042 PATIENT: FELICIA YORK UNIT #: [id number] ROOM/BED: 3036-A : 84 AGE: 33 SEX: F ATTEND: Mable Hoffman MD ADM AUTHOR: Sanna Hoffman MD * ALL edits or amendments must be made on the [email or web address] document * Subjective Subjective Admission EGA (wks/days): 28.6, 29.3 today Patient reports: Comments: c/o BADILLO, reports HAs better. no VB/LOF. good FM. strongly desires d/c home. Objective Nursing Documentation Review Nursing data: The data set between the solid lines has been im ported from nursing documentation. Any exceptions have been noted be low under Provider comments. ROM date: ROM time: Labor onset date: Labor onset time: EGA at admit (weeks): Provider comments on imported nursing data: [] VS: Last Documented: Result Date Time B/P Mean 81.0 08/17 0806 Pulse Ox 100 08/17 0806 B/P 115/57 08/17 0806 Temp 98.5 08/17 0806 Pulse 71 08/17 0806 Resp 16 08/17 0806 Vital Signs Date Temp Pulse Resp B/P B/P Mean Pulse Ox FiO2 08/16-08/17 97.8-98.6 70-86 16-17 115-137/57-7 3 81.0-96.0 97-100 Patient Weight Weight (lb): 245 Weight (oz): Weight (kg): 111.13 Membranes: Intact HEENT: normocephalic w/o injury Cardiac: regular rate and rhythm Lungs: clear to auscultation Neuro: Exam: alert, oriented x3 Abdomen: gravid, soft, no abnormal tenderness Baby A: Baby A baseline: 140 bpm Baby A variability: moderate 6-25 bpm Baby A accelerations: 10 X 10 Baby A decelerations: none Baby A FHR category: category 1 Diagnosis, Assessment Plan Diagnosis, Assessment Plan Free Text A P: 29.3 wks, mild preeclampsia. strongly desires d/c home. HAs improved. unable to tolerate MRI. cont bedrest at home. f/u 1 wk in office. strong warnings for PIH sx. at 1044 RPT #:[id number] END OF REPORT 2019-08-17 08:36:00-00:[address] [facility] [place] [place] ([facility]) OB Antepartum Prog Note REPORT#:[id number] REPORT STATUS: Signed DATE:08/17/19 TIME: 0836 PATIENT: FELICIA YORK UNIT #: [id number] ROOM/BED: [address] : 84 AGE: 33 SEX: F ATTEND: Mable Hoffman MD ADM AUTHOR: Sanna Hoffman MD * ALL edits or amendments must be made on the [email or web address] document * Subjective Subjective Admission EGA (wks/days): 28.6, 29.2 today Patient reports: Comments: c/o BADILLO, worse last night, still requiring morphi ne/phenergan. poor sleep. no VB/LOF. good FM. Objective Nursing Documentation Review Nursing data: The data set between the solid lines has been im ported from nursing documentation. Any exceptions have been noted be low under Provider comments. ROM date: ROM time: Labor onset date: Labor onset time: EGA at admit (weeks): Provider comments on imported nursing data: [] VS: Last Documented: Result Date Time B/P Mean 86.0 08/163 B/P 126/60 08/16 045 Pulse 69 08/16 0453 Pulse Ox 99 08/16 045 Temp 98.0 08/163 Resp 14 08/15 2131 Vital Signs Date Temp Pulse Resp B/P B/P Mean Pulse Ox FiO2 08/15-08/16 97.7-98.4 69-88 14-16 122-137/56-72 81.0-98.0 99-100 Patient Weight Weight (lb): 245 Weight (oz): Weight (kg): 111.13 Membranes: Intact HEENT: normocephalic w/o injury Neuro: Exam: alert, oriented x3 Abdomen: gravid, soft, no abnormal tenderness Baby A: Baby A baseline: 140 bpm Baby A variability: moderate 6-25 bpm Baby A accelerations: 10 X 10 Baby A decelerations: none Baby A FHR category: category 1 Findings/data: Laboratory Tests: 08/15 1445 Chemistry Sodium (135 - 145 mEq/L) 139 Potassium (3.5 - 5.0 mEq/L) 3.3 L Chloride (100 - 115 mEq/L) 104 Carbon Dioxide (22 - 31 mEq/L) 25 Anion Gap (10 - 20) 13.20 BUN (7 - 18 mg/dL) 11 Creatinine (0.5 - 1.0 mg/dL) 0.6 Glomerular Filtr Rate (>60 ml/min) 114 Glucose (65 - 110 mg/dL) 112 H Calcium (8.4 - 10.2 mg/dL) 8.6 Total Bilirubin (0.2 - 1.0 mg/dL) 0.2 AST (15 - 37 units/L) 14 L ALT (12 - 78 units/L) 16 Total Alk Phosphatase (46 - 116 units/L) 62 Total Protein (6.3 - 8.2 gm/dL) 6.1 L Albumin (3.4 - 4.8 gm/dL) 2.8 L Hematology WBC (6.6 - 12.1 K/mm3) 14.1 H RBC (3.45 - 5.01 M/mm3) 3.44 L Hgb (10.7 - 13.9 g/dL) 10.4 L Hct (32.1 - 42.1 %) 32.6 MCV (84.1 - 94.8 fL) 95 H MCH (27 - 35 pg) 30.2 MCHC (32.2 - 34.1 gm/dL) 31.9 L RDW (12.4 - 16.5 %) 12.7 Plt Count (133 - 385 K/mm3) 245 MPV (9.1 - 12.7 fl) 10.6 Neut % (Auto) (56.5 - 79.4 %) 75.2 Lymph % (Auto) (14.3 - 34.3 %) 16.4 [place] % (Auto) (5.1 - 10.4 %) 6.1 Eos % (Auto) (0.1 - 3.0 %) 0.7 Baso % (Auto) (0.1 - 1.0 %) 0.3 Neut # (Auto) (K/mm3) 10.6 Lymph # (Auto) (K/mm3) 2.3 [place] # (Auto) (K/mm3) 0.9 Eos # (Auto) (K/mm3) 0.10 Baso # (Auto) (K/mm3) 0.0 Diagnosis, Assessment Plan Diagnosis, Assessment Plan Free Text A P: 29.2 wks, preeclampsia, prev C/S, persistent BADILLO. PIH labs wnl. replete K. still having persistent BADILLO requiring IV meds. wi ll check MRI brain. repeat 24 hr in process. plan delivery via repeat C/S as indicated. at 0837 RPT #:[id number] END OF REPORT 2019-08-16 11:57:00-00:00 [facility] ([facility]) OB Antepartum Prog Note REPORT#:[id number] REPORT STATUS: Signed DATE:08/16/19 TIME: 1157 PATIENT: FELICIA YORK UNIT #: [id number] ROOM/BED: 3036-A : 84 AGE: 33 SEX: F ATTEND: Mable Hoffman MD ADM AUTHOR: Sanna Hoffman MD * ALL edits or amendments must be made on the [employer] document * Subjective Subjective Admission EGA (wks/days): 28.6, 29.1 today Patient reports: Comments: c/o BADILLO, worse last night, still requiring morphi ne/phenergan. c/o LBP. poor sleep. no VB/LOF. good FM. Objective Nursing Documentation Review Nursing data: The data set between the solid lines has been im ported from nursing documentation. Any exceptions have been noted be low under Provider comments. ROM date: ROM time: Labor onset date: Labor onset time: EGA at admit (weeks): Provider comments on imported nursing data: [] VS: Last Documented: Result Date Time B/P Mean 86.0 08/15 830 B/P 127/61 08/15 830 Pulse 85 08/15 0831 Pulse Ox 100 08/15 0831 Temp 97.9 08/15 0831 Resp 16 08/15 830 Vital Signs Date Temp Pulse Resp B/P B/P Mean Pulse Ox FiO2 /-08/15 97.9-98.4 77-85 16-18 116-135/56-67 80.0-94.0 99-100 Patient Weight Weight (lb): 245 Weight (oz): Weight (kg): 111.13 Membranes: Intact HEENT: normocephalic w/o injury Cardiac: regular rate and rhythm Lungs: clear to auscultation Neuro: Exam: alert, oriented x3 Abdomen: gravid, soft, no abnormal tenderness Baby A: Baby A baseline: 140 bpm Baby A variability: moderate 6-25 bpm Baby A accelerations: 10 X 10 Baby A decelerations: none Baby A FHR category: category 1 Diagnosis, Assessment Plan Diagnosis, Assessment Plan Free Text A P: 29.1 wks, preeclampsia, prev C/S. repeat labs. cont phenergan/morphine for BADILLO. deliver via C/S if develops severe criteria. at 1158 RPT #:[id number] END OF REPORT 2019-08-15 13:33:00-00:00 [facility] ([facility]) OB Antepartum Prog Note REPORT#:[id number] REPORT STATUS: Signed DATE:08/15/19 TIME: 1333 PATIENT: FELICIA YORK UNIT #: [id number] ROOM/BED: [address] : 84 AGE: 33 SEX: F ATTEND: Mable Hoffman MD ADM AUTHOR: Liam Velazquez MD * ALL edits or amendments must be made on the [email or web address] document * Subjective Subjective Admission EGA (wks/days): 28.6, 29.0 today Patient reports: Comments: BADILLO with improvement after morphine/phenergan las t night, but now starting to worsen. Reports h/o BADILLO in the past. Describes as on both sides of head (not frontal or occipital). Mild nausea. No scotomata, DAVID pain. No labor complaints. Good FM Objective Nursing Documentation Review Nursing data: The data set between the solid lines has been im ported from nursing documentation. Any exceptions have been noted be low under Provider comments. ROM date: ROM time: Labor onset date: Labor onset time: EGA at admit (weeks): Provider comments on imported nursing data: [] VS: Last Documented: Result Date Time B/P Mean 94.0 08/14 1226 B/P 135/67 08/14 1226 Pulse 77 08/14 1226 Temp 36.7 08/14 0921 Pulse Ox 99 08/14 0920 Resp 16 08/13 2040 Vital Signs Date Temp Pulse Resp B/P B/P Mean Pulse Ox FiO 2 08/13-08/14 36.7-36.9 72-81 16 112-144/53-71 76 .0-97.0 99 Patient Weight Weight (lb): 245 Weight (oz): Weight (kg): 111.13 Membranes: Intact HEENT: normocephalic w/o injury Cardiac: regular rate and rhythm Lungs: clear to auscultation Neuro: Exam: alert, oriented x3 Abdomen: gravid, soft, no abnormal tenderness Baby A: Baby A baseline: 140 bpm Baby A variability: moderate 6-25 bpm Baby A accelerations: 10 X 10 Baby A decelerations: none Baby A FHR category: category 1 Findings/data: Laboratory Tests: 08/13 1531 Chemistry Creatinine (0.5 - 1.0 mg/dL) 0.6 Urines Ur Random Creatinine (mg/dL) 120.2 U Random Total Protein (mg/dL) 23.5 Urine Total Volume (ML) 1300 Creatinine Clearance (70 - 120 ml/min) 180 H Ur Total Protein 24 Hr (20 - 150 mg/24HR) 306 * H Diagnosis, Assessment Plan Diagnosis, Assessment Plan Free Text A P: 30.0 wks, admitted with elevated BPs. 24 hr TP 3 06 c/w mild pre-eclampsia. - BPs normalized with bedrest. may need to continue bedrest either in house or at home. - S/p BMS x2 - BADILLO: tylenol/fiorcet prn fo r mild headache, if severe- has had improvement with morphine/phenergan - Continue expectant management - repeat C/S if delivery indicated. Electronically Signed by Liam Velazquez MD on 0 08/15/19 at 1336 RPT #:[id number] END OF REPORT 2019-08-14 15:36:00-00:00 [facility] ([facility]) OB Antepartum Prog Note REPORT#:[id number] REPORT STATUS: Signed DATE:08/14/19 TIME: 1536 PATIENT: FELICIA YORK UNIT #: [id number] ROOM/BED: 3036-A : 84 AGE: 33 SEX: F ATTEND: Mable Hoffman MD ADM AUTHOR: Jose Luis Rawls MD * ALL edits or amendments must be made on the [email or web address] document * Subjective Subjective Admission EGA (wks/days): 28.6 Patient reports: Patient reports: Yes normal movement, Yes headache (No rel ief (tylenol or fioricet), No no complaints, No abdominal pain, No vaginal ble eding, No leaking fluid, No contractions Comments: No relief of headache with tylenol or fi oricet. Has been given morphine in the past with relief. Objective Nursing Documentation Review Nursing data: The data set between the solid lines has been im ported from nursing documentation. Any exceptions have been noted be low under Provider comments. ROM date: ROM time: Labor onset date: Labor onset time: EGA at admit (weeks): Provider comments on imported nursing data: [] VS: Last Documented: Result Date Time B/P Mean 87.0 08/13 1136 B/P 133/62 08/13 1136 Pulse 75 08/13 1136 Temp 98.1 08/13 0747 Pulse Ox 97 08/13 0747 Resp 16 08/13 0015 Vital Signs Date Temp Pulse Resp B/P B/P Mean Pulse Ox FiO2 08/12-08/13 98.1-98.3 73-81 16 110-133/59-67 82 .0-92.0 97 Patient Weight Weight (lb): 245 Weight (oz): Weight (kg): 111.13 Membranes: Intact HEENT: normocephalic w/o injury Cardiac: regular rate and rhythm Lungs: clear to auscultation Neuro: Exam: alert, oriented x3 Abdomen: gravid, soft, no abnormal tenderness Baby A: Baby A baseline: 140 bpm Baby A variability: moderate 6-25 bpm Baby A accelerations: 10 X 10 Baby A decelerations: none Baby A FHR category: category 1 Findings/data: Laboratory Tests: 08/13 08/13 08/13 08/13 08/13 0940 0855 0855 0642 0500 Chemistry Glucose 2 Hour (70 - 140 mg/dL) 127 Glucose 3 Hour (65 - 110 mg/dL) 116 H Complete Gestat Glucose Screen (<150 MG/DL) 142 Complet e 08/13 08/12 0500 1857 Chemistry Fasting Glucose (65 - 110 mg/dL) 93 Other Body Source Membranes Rupture (NON - RUPTURE) NON-RUP TURED Recent Impressions: ULTRASOUND - US FLW UP 08/14 939 Report Impression - Status: SIGNED Entered: 08/14/2019 1031 CLINICAL SUMMARY Type of Gestation: Heredia Intrauterine in transverse HEAD RIGHTp resentation. size is appropriate for gestational age. growth: Consistent with normal growth motion and organs seen: heart motion seen body and limb movements observed tone noted breathing movements observed Placental location: Anterior Placental maturity : Grade 1 There is no evidence of placenta previa. Amniotic fluid volume is normal. Uterus and adnexa: No significant abnormality is seen. Thank you for allowing us to participate in the care of this patient. Janie Lovell M.D. Impression By: Mic.SAM - Janie Lovell MD Results: labs reviewed, vital signs stable Diagnosis, Assessment Plan Diagnosis, Assessment Plan Free Text A P: 28.6 wks, HTN without signs of HELLP or preeclam psia. BPs normalized with bedrest. may need to continue bedrest either in house or at home. 3 hr gTT normal, followed by BMS course. cont obs for now. repeat C/S if delivery indicat ed. Electronically Signed by Jose Luis Rawls MD on at 1540 RPT #:[id number] END OF REPORT 2019-08-14 06:24:00-00:00 [facility] ([facility]) OB Admission / H P REPORT#:[id number] REPORT STATUS: Signed DATE:08/14/19 TIME: 623 PATIENT: FELICIA YORK UNIT #: [id number] ROOM/BED: [address] : 84 AGE: 33 SEX: F ATTEND: Mable Hoffman MD ADM AUTHOR: Sanna Hoffman MD * ALL edits or amendments must be made on the el [employer]/computer document * OB Admission H P Hx Chief complaint: elevated blood pressure, headac he, swelling HPI: 28.6 wks, no konw med hx, re v admitted to [facility] for BP eval and PIH w/u which was wnl. BPs stable and wnl in house, and pt d/c'ed home. presented to office for routine Ob check and again c/o swelling and BADILLO. BP in office mildly elevated. good FM. no VB/LOF/ctx. history: : 7 Term: 1 Abortus: 5 Current : EDC: 12/01/19 Admission EGA (wks/days): 28.5 Conditions of : HTN-gestational Labs: Blood type: O Rh: positive Procedures: ultrasound, non stress test Past medical history: endometriosis Past surgical history: , diagnostic lap Social history: no alcohol use, no tobacco use, no drug use Medications: Home Medications: PNV/FE FUM/FA ( MULTIVITAMIN) 1 TAB PO D AILY Allergies Coded Allergies: No Known Allergies (06/30/19) Objective General VS: Last Documented: Result Date Time B/P Mean 82.0 08/13 0510 B/P 114/59 08/13 0510 Pulse 73 08/13 0510 Resp 16 08/13 0015 Temp 98.1 08/12 2137 Vital Signs Date Temp Pulse Resp B/P B/P Mean Pulse Ox FiO2 08/12-08/13 98.1-98.3 73-75 16 114-131/59-66 82 .0-92.0 Patient Weight Weight (lb): 245 Weight (oz): Weight (kg): 111.13 Physical Exam HEENT: normocephalic w/o injury Cardiac: regular rate and rhythm Lungs: clear to auscultation Neuro: Exam: alert, oriented x3 Abdomen: gravid, soft, no abnormal tenderness Membranes: Membranes: Intact Result Findings/Data: Laboratory Tests: 08/13 08/12 0500 1350 Chemistry Sodium (135 - 145 mEq/L) 136 Potassium (3.5 - 5.0 mEq/L) 3.7 Chloride (100 - 115 mEq/L) 103 Carbon Dioxide (22 - 31 mEq/L) 25 Anion Gap (10 - 20) 11.80 BUN (7 - 18 mg/dL) 12 Creatinine (0.5 - 1.0 mg/dL) 0.6 Glomerular Filtr Rate (>60 ml/min) 114 Glucose (65 - 110 mg/dL) 87 Fasting Glucose (65 - 110 mg/dL) 93 Calcium (8.4 - 10.2 mg/dL) 8.5 Total Bilirubin (0.2 - 1.0 mg/dL) 0.2 Direct Bilirubin (<0.2 mg/dL) <0.1 AST (15 - 37 units/L) 12 L ALT (12 - 78 units/L) 12 Total Alk Phosphatase (46 - 116 units/L) 62 Total Protein (6.3 - 8.2 gm/dL) 6.4 Albumin (3.4 - 4.8 gm/dL) 2.7 L Hematology WBC (6.6 - 12.1 K/mm3) 10.8 RBC (3.45 - 5.01 M/mm3) 3.49 Hgb (10.7 - 13.9 g/dL) 10.6 L Hct (32.1 - 42.1 %) 32.7 MCV (84.1 - 94.8 fL) 94 MCH (27 - 35 pg) 30.4 MCHC (32.2 - 34.1 gm/dL) 32.4 RDW (12.4 - 16.5 %) 12.6 Plt Count (133 - 385 K/mm3) 260 MPV (9.1 - 12.7 fl) 10.4 Neut % (Auto) (56.5 - 79.4 %) 67.8 Lymph % (Auto) (14.3 - 34.3 %) 19.6 [place] % (Auto) (5.1 - 10.4 %) 8.3 Eos % (Auto) (0.1 - 3.0 %) 3.2 H Baso % (Auto) (0.1 - 1.0 %) 0.4 Neut # (Auto) (K/mm3) 7.3 Lymph # (Auto) (K/mm3) 2.1 [place] # (Auto) (K/mm3) 0.9 Eos # (Auto) (K/mm3) 0.34 Baso # (Auto) (K/mm3) 0.0 Diagnosis, Assessment Plan Diagnosis, Assessment Plan Free Text A P: 28.6 wks, HTN without signs of HELLP or preeclam psia. BPs normalized with bedrest. may need to continue bedrest either in house or at home. 3 hr gTT, followed by BMS course. cont obs for now. repeat C/S if delivery indicat ed. at 0634 RPT #:[id number] END OF REPORT 2019-07-30 15:48:00-00:[address] [facility]) OB Antepartum Prog Note REPORT#:[id number] REPORT STATUS: Signed DATE:07/30/19 TIME: 1548 PATIENT: FELICIA YORK UNIT #: [id number] ROOM/BED: 3048- : 84 AGE: 33 SEX: F ATTEND: Mable Hoffman MD ADM AUTHOR: Sanna Hoffman MD * ALL edits or amendments must be made on the [email or web address] document * Subjective Subjective Admission EGA (wks/days): 26.4 Patient reports: Patient reports: Yes no complaints, Yes normal mov ement, No vaginal bleeding, No leaking fluid, No contractions, No n o movement, No headache, No blurred vision, No scotomata Objective Nursing Documentation Review Nursing data: The data set between the solid lines has been im ported from nursing documentation. Any exceptions have been noted be low under Provider comments. ROM date: ROM time: Labor onset date: Labor onset time: EGA at admit (weeks): Provider comments on imported nursing data: [] VS: Last Documented: Result Date Time B/P Mean 83.0 07/30 113 Pulse Ox 100 07/30 1134 B/P 122/58 07/30 113 Temp 98.4 02/21 1135 Pulse 75 07/30 1135 Resp 18 07/30 1002 Vital Signs Date Temp Pulse Resp B/P B/P Mean Pulse Ox FiO2 07/29-07/30 97.9-98.6 67-77 - 101-122/54-58 76.0-84.0 98-100 Patient Weight Weight (lb): Weight (oz): Weight (kg): Membranes: Intact HEENT: normocephalic w/o injury Neuro: Exam: alert, oriented x3 Abdomen: gravid, soft, no abnormal tenderness Baby A: Baby A baseline: 140 bpm Baby A variability: moderate 6-25 bpm Baby A accelerations: 15 X 15 Baby A decelerations: none Baby A FHR category: category 1 Findings/data: Laboratory Tests: 07/30 07/30 07/30 07/30 1221 0718 0520 0520 Chemistry Fasting Glucose (65 - 110 mg/dL) 96 Gestat Glucose Screen (<150 MG/DL) 135 Complete Urines U Random Total Protein (mg/dL) 14.5 Urine Total Volume (ML) 1300 Ur Total Protein 24 Hr (20 - 150 mg/24HR) 189 H Recent Impressions: ULTRASOUND - US PREG AFTER 07/29 2152 Report Impression - Status: SIGNED Entered: 07/30/2019 0935 CLINICAL SUMMARY Type of Gestation: Ehredia Intrauterine in vertex presentation. size is appropriate for gestational age. growth: Consistent with normal growth motion and organs seen: heart motion seen body and limb movements seen Four chamber heart observed Left ventricular outflow tract (LVOT) seen Right ventricular outflow tract (RVOT) seen Normal intracranial anatomy seen Umbilical cord insertion in fetus seen stomach, Renal Fossa, Bladder and Spine s een Three vessel umbilical cord noted abnormalities observed: [...] care of this patient. Bharat Oneill M.D. Impression By: Blank Oneill MD Diagnosis, Assessment Plan Diagnosis, Assessment Plan Free Text A P: 26.5 wks, admitted for elevated BP. BPs wnl, PIH labs wnl, 24 hr urine wnl. GTT elevated, d/w pt, needs 3 hr. nl f/u sono, appropriate growth. stable for d/c, f/u in office 1-2 wks. at 1550 RPT #:[id number] END OF REPORT 2019-07-29 12:30:00-00:00 [facility] ([facility]) OB Admission / H P REPORT#:[id number] REPORT STATUS: Signed DATE:07/29/19 TIME: 1230 PATIENT: FELICIA YORK UNIT #: [id number] ROOM/BED: [address] : 84 AGE: 33 SEX: F ATTEND: Mable Hoffman MD ADM AUTHOR: Sanna Hoffman MD * ALL edits or amendments must be made on the [email or web address] document * OB Admission H P Hx Chief complaint: elevated blood pressure HPI: 26 wks, insufficient prenata l care, presented to office c/o not feeling well for weeks. c/o BADILLO, N/V, swelling. reports good FM, n o VB/LOF/ctx. Current : EDC: 10/31/19 Admission EGA (wks/days): 26.4 Conditions of : previous uterine incisi on Labs: Blood type: unknown Past medical history: endometriosis Past surgical history: , diagnostic lap Social history: no alcohol use, no tobacco use, no drug use Allergies Coded Allergies: No Known Allergies (06/30/19) Objective General VS: Last Documented: Result Date Time B/P Mean 88.0 07/29 1126 Pulse Ox 100 07/29 1126 B/P 128/61 07/29 1126 Temp 97.9 07/29 1126 Pulse 70 07/29 1126 Resp 18 07/29 1126 Vital Signs Date Temp Pulse Resp B/P B/P Mean Pulse Ox FiO 2 07/29 97.9 70-71 18 128/61 88.0 100 Patient Weight Weight (lb): Weight (oz): Weight (kg): Physical Exam HEENT: normocephalic w/o injury Cardiac: regular rate and rhythm Lungs: clear to auscultation Neuro: Exam: alert, oriented x3 Abdomen: gravid, soft, no abnormal tenderness Membranes: Membranes: Intact Diagnosis, Assessment Plan Diagnosis, Assessment Plan Free Text A P: 26.4 wks, with elevated BP, BADILLO, N/V, prev C/S, i nsufficient care. concern for possible early onset preeclampsia/HE LLP syndrome. check labs, monitor BPs. bedrest. NST q shift. check 24 hr urine. plan repeat C/S for delivery. at 1237 RPT #:[id number] END OF REPORT 2019-06-26 19:59:00-00:00 [facility] ([facility]) DT History Physical REPORT#:[id number] REPORT STATUS: Signed DATE:06/26/19 TIME: 1958 PATIENT: FELICIA YORK UNIT #: [id number] ROOM/BED: : 84 AGE: 33 SEX: F ATTEND: Mable Hoffman MD ADM DT: AUTHOR: Jo Paul MD * ALL edits or amendments must be made on the [email or web address] document * History Physical History Physical ROMAN Triage Note: S: 33 yo at 21w6d presents today with cc of bilateral lower edema swelling that is "increased from baseline in the mornings" as well as some bloody discharge x1 episode today. +fm, - lof, - ctx. Hx of possible cHTN, was told to check bp at home and has not been checki ng her bp. Has a mild BADILLO. No blurry vision, chest pain, RUQ pain. Nothing in vagina x 24 hrs. 12 point ROS negative except above PMH: endometriosis, possible cHTN (had 140s/80s at initial ob visit) PSH: lsc, C/S x1 Meds: PNV A: none Fhx: noncontributory S: no T/E/D O: Last Documented: Result Date Time B/P Mean 87.0 06/26 1855 B/P 128/62 06/26 1855 Pulse 90 06/26 1855 Temp 98.3 06/26 1840 Resp 18 06/26 1840 Gen: NAD/AAOx3 HEENT: NC/AT Chest: no increased wob Abd: soft, gravid, NT Ext: no TTP, 1+ edema Labs: Laboratory Tests: 06/26 1921 Chemistry Sodium (135 - 145 mEq/L) 140 Potassium (3.5 - 5.0 mEq/L) 3.8 Chloride (100 - 115 mEq/L) 104 Carbon Dioxide (22 - 31 mEq/L) 27 Anion Gap (10 - 20) 12.60 BUN (7 - 18 mg/dL) 9 Creatinine (0.5 - 1.0 mg/dL) 0.6 Glomerular Filtr Rate (>60 ml/min) 114 Glucose (65 - 110 mg/dL) 100 Calcium (8.4 - 10.2 mg/dL) 8.5 Total Bilirubin (0.2 - 1.0 mg/dL) 0.2 AST (15 - 37 units/L) 19 ALT (12 - 78 units/L) 27 Total Alk Phosphatase (46 - 116 units/L) 45 L Total Protein (6.3 - 8.2 gm/dL) 5.5 L Albumin (3.4 - 4.8 gm/dL) 2.7 L Hematology WBC (6.6 - 12.1 K/mm3) 9.3 RBC (3.45 - 5.01 M/mm3) 3.35 L Hgb (10.7 - 13.9 g/dL) 10.1 L Hct (32.1 - 42.1 %) 31.5 L MCV (84.1 - 94.8 fL) 94 MCH (27 - 35 pg) 30.1 MCHC (32.2 - 34.1 gm/dL) 32.1 L RDW (12.4 - 16.5 %) 12.4 Plt Count (133 - 385 K/mm3) 234 MPV (9.1 - 12.7 fl) 10.3 Neut % (Auto) (56.5 - 79.4 %) 63.0 Lymph % (Auto) (14.3 - 34.3 %) 22.7 [place] % (Auto) (5.1 - 10.4 %) 10.6 H Eos % (Auto) (0.1 - 3.0 %) 2.9 Baso % (Auto) (0.1 - 1.0 %) 0.3 Neut # (Auto) (K/mm3) 5.8 Lymph # (Auto) (K/mm3) 2.1 [place] # (Auto) (K/mm3) 1.0 Eos # (Auto) (K/mm3) 0.27 Baso # (Auto) (K/mm3) 0.0 Urines Urine Color (YELLOW) STRAW Urine Appearance (CLEAR) CLEAR Urine pH (5 - 9) 7.0 Ur Specific [place] (1.001 - 1.035) 1.008 Urine Protein (NEG) NEGATIVE Urine Glucose (UA) (NEG) NEGATIVE Urine Ketones (NEG) NEGATIVE Urine Blood (NEG) NEG Urine Nitrite (NEG) NEG Urine Bilirubin (NEG) NEGATIVE Urine Urobilinogen (NEG mg/dL) NEGATIVE Ur Leukocyte Esterase (NEG) NEG Urine RBC (NONE SEEN #/hpf) 0-2 Urine WBC (NONE SEEN #/hpf) 0-2 Ur Epithelial Cells (RARE - FEW #/HPF) RARE Urine Bacteria (RARE - FEW /HPF) RARE Ur Random Creatinine (mg/dL) 22.8 U Random Total Protein (mg/dL) <6 Protein/Creatinin Ratio (<200 mg/gcrea) 260.0 H Imaging: Recent Impressions: ULTRASOUND - US PREG UT TRANSVAGINAL 06/26 1944 Report Impression - Status: SIGNED Entered: 06/26/20192041 IMPRESSION: 1. Single living intrauterine with an estimated ultrasound gestational age of 22 weeks 0 days and an estima [place] date of delivery of 10/30/2019. SL: 131 Impression By: Liz Josue ULTRASOUND - US FLW UP 06/26 1944 Report Impression - Status: SIGNED Entered: 06/26/20192041 IMPRESSION: 1. Single living intrauterine with an estimated ultrasound gestational age of 22 weeks 0 days and an estima [place] date of delivery of 10/30/2019. SL: 131 Impression By: Liz Josue A/P: 33 yo at 21w6d cc of bilateral lower edema swelling, milld BADILLO, and bloody discharge x1 episode in setting of possib le cHTN # b/l lower edema swelling, mild BADILLO, possible cH TN - lower edema swelling today 1+ - BADILLO improved slightly w/ tylenol/hydration - serial BP normal except on 140s/80s. - rec'd to take bp bid and keep log/bring to nex t ob visit - labs nl - imaging - CL 4cm, no previa, no abruption note d. s=d f/u with dr. hoffman in 1wk, last visit 3wk ago. MD Abby Electronically Signed by Jo Paul MD on 06/26 at 2207 RPT #:[id number] END OF REPORT 2019-06-26 19:59:00-00:00 [facility] DT History Physical REPORT#:[id number] REPORT STATUS: Signed DATE:06/26/19 TIME: 1958 PATIENT: FELICIA YORK UNIT #: [id number] ROOM/BED: : 84 AGE: 33 SEX: F ATTEND: Mable Hoffman MD ADM DT: AUTHOR: Jo Paul MD * ALL edits or amendments must be made on the [email or web address] document * See Addendum History Physical History Physical ROMAN Triage Note: S: 33 yo at 21w6d presents today with cc of bilateral lower edema swelling that is "increased from baseline in the mornings" as well as some bloody discharge x1 episode today. +fm, - lof, - ctx. Hx of possible cHTN, was told to check bp at home and has not been checki ng her bp. Has a mild BADILLO. No blurry vision, chest pain, RUQ pain. Nothing in vagina x 24 hrs. 12 point ROS negative except above PMH: endometriosis, possible cHTN (had 140s/80s at initial ob visit) PSH: lsc, C/S x1 Meds: PNV A: none Fhx: noncontributory S: no T/E/D O: Last Documented: Result Date Time B/P Mean 87.0 06/26 1855 B/P 128/62 01/18 1856 Pulse 90 06/26 1855 Temp 98.3 06/26 1840 Resp 18 06/26 1840 Gen: NAD/AAOx3 HEENT: NC/AT Chest: no increased wob Abd: soft, gravid, NT Ext: no TTP, 1+ edema Labs: Laboratory Tests: 06/26 1921 Chemistry Sodium (135 - 145 mEq/L) 140 Potassium (3.5 - 5.0 mEq/L) 3.8 Chloride (100 - 115 mEq/L) 104 Carbon Dioxide (22 - 31 mEq/L) 27 Anion Gap (10 - 20) 12.60 BUN (7 - 18 mg/dL) 9 Creatinine (0.5 - 1.0 mg/dL) 0.6 Glomerular Filtr Rate (>60 ml/min) 114 Glucose (65 - 110 mg/dL) 100 Calcium (8.4 - 10.2 mg/dL) 8.5 Total Bilirubin (0.2 - 1.0 mg/dL) 0.2 AST (15 - 37 units/L) 19 ALT (12 - 78 units/L) 27 Total Alk Phosphatase (46 - 116 units/L) 45 L Total Protein (6.3 - 8.2 gm/dL) 5.5 L Albumin (3.4 - 4.8 gm/dL) 2.7 L Hematology WBC (6.6 - 12.1 K/mm3) 9.3 RBC (3.45 - 5.01 M/mm3) 3.35 L Hgb (10.7 - 13.9 g/dL) 10.1 L Hct (32.1 - 42.1 %) 31.5 L MCV (84.1 - 94.8 fL) 94 MCH (27 - 35 pg) 30.1 MCHC (32.2 - 34.1 gm/dL) 32.1 L RDW (12.4 - 16.5 %) 12.4 Plt Count (133 - 385 K/mm3) 234 MPV (9.1 - 12.7 fl) 10.3 Neut % (Auto) (56.5 - 79.4 %) 63.0 Lymph % (Auto) (14.3 - 34.3 %) 22.7 [place] % (Auto) (5.1 - 10.4 %) 10.6 H Eos % (Auto) (0.1 - 3.0 %) 2.9 Baso % (Auto) (0.1 - 1.0 %) 0.3 Neut # (Auto) (K/mm3) 5.8 Lymph # (Auto) (K/mm3) 2.1 [place] # (Auto) (K/mm3) 1.0 Eos # (Auto) (K/mm3) 0.27 Baso # (Auto) (K/mm3) 0.0 Urines Urine Color (YELLOW) STRAW Urine Appearance (CLEAR) CLEAR Urine pH (5 - 9) 7.0 Ur Specific [place] (1.001 - 1.035) 1.008 Urine Protein (NEG) NEGATIVE Urine Glucose (UA) (NEG) NEGATIVE Urine Ketones (NEG) NEGATIVE Urine Blood (NEG) NEG Urine Nitrite (NEG) NEG Urine Bilirubin (NEG) NEGATIVE Urine Urobilinogen (NEG mg/dL) NEGATIVE Ur Leukocyte Esterase (NEG) NEG Urine RBC (NONE SEEN #/hpf) 0-2 Urine WBC (NONE SEEN #/hpf) 0-2 Ur Epithelial Cells (RARE - FEW #/HPF) RARE Urine Bacteria (RARE - FEW /HPF) RARE Ur Random Creatinine (mg/dL) 22.8 U Random Total Protein (mg/dL) <6 Protein/Creatinin Ratio (<200 mg/gcrea) 260.0 H Imaging: Recent Impressions: ULTRASOUND - US PREG UT TRANSVAGINAL 06/26 1944 Report Impression - Status: SIGNED Entered: 06/26/20192041 IMPRESSION: 1. Single living intrauterine with an estimated ultrasound gestational age of 22 weeks 0 days and an estima [place] date of delivery of 10/30/2019. SL: 131 Impression By: Liz Josue ULTRASOUND - US FLW UP 06/26 1944 Report Impression - Status: SIGNED Entered: 06/26/20192041 IMPRESSION: 1. Single living intrauterine with an estimated ultrasound gestational age of 22 weeks 0 days and an estima [place] date of delivery of 10/30/2019. SL: 131 Impression By: Liz Josue A/P: 33 yo at 21w6d cc of bilateral lower edema swelling, milld BADILLO, and bloody discharge x1 episode in setting of possib le cHTN # b/l lower edema swelling, mild BADILLO, possible cH TN - lower edema swelling today 1+ - BADILLO improved slightly w/ tylenol/hydration - serial BP normal except on 140s/80s. - rec'd to take bp bid and keep log/bring to nex t ob visit - labs nl - imaging - CL 4cm, no previa, no abruption note d. s=d f/u with dr. hoffman in 1wk, last visit 3wk ago. MD Abby Electronically Signed by Jo Paul MD on 06/26 at 2207 Addendum 1: 06/26/192208 by Jo Paul MD + T Electronically Signed by Jo Paul MD on 06/26 at 2209 RPT #:[id number] END OF REPORT
[2023-01-09 13:43] LABS: Urine Bacteria None Seen /HPF (<20); Urine Bilirubin NEGATIVE (Negative); Urine Blood Negative (Negative); Urine Clarity Clear (Clear); Urine Color Yellow (Yellow); Urine Glucose NEGATIVE (Negative); Urine Mucus 1+ /HPF (None Seen); Urine Protein 1+ (Negative); Urine Urobilinogen Normal (Normal); Urine pH 6.5 (5.0-7.0)
--- NOTE | 2023-01-09 14:16 | RAD REPORT ---
EXAM DESCRIPTION: US - Abdomen Exam Limited - 01/09/2023 1:52 pm CLINICAL HISTORY: ABD PAIN COMPARISON: Abdomen Exam Complete dated 05/17/2022 FINDINGS: The gallbladder demonstrates no gallstones. No pericholecystic fluid or gallbladder wall t hickening. The common bile duct is normal measuring 5 mm. The liver demonstrates no findings of intrahepatic biliary dilatation. IMPRESSION: Unremarkable examination.
[2023-01-09] MEDS ORDERED: KETOROLAC 30 MG/ML INJ ONE (14:27)
[2023-01-09] MEDS ORDERED: ONDANSETRON 4 MG/2 ML VIAL ONE (14:27)
[2023-01-09] MEDS ORDERED: FAMOTIDINE 20 MG/2 ML VIAL IV ONE (14:27)
[2023-01-09] MEDS ORDERED: NA CHLORIDE 0.9% 1,000 ML ONE (14:27)
--- NOTE | 2023-01-09 14:28 | RAD REPORT ---
EXAM DESCRIPTION: CTAbdomen Pelvis W Contrast - 01/09/2023 2:16 pm CLINICAL HISTORY: Abdominal pain. ABD PAIN COMPARISON: Abdomen Pelvis W Contrast dated 04/16/2022; Abdomen Pelvis W Contrast dated 11/09/2020; Abdomen Pelvis W Contrast dated 09/19/2020; Abdomen Pelvis W Contrast dated 02/11/2019 TECHNIQUE: Biphasic CT imaging of the abdomen and pelvis was performed with 100 ml non-ionic IV cont rast. All CT scans are performed using dose optimization technique as appropriate and may include automated exposure control or mA/KV adjustment according to patient size. FINDINGS: The lung bases are clear. The liver, spleen, pancreas, adrenal glands and kidneys are within normal limits. No bowel obstruction, free air, free fluid or abscess. Appendectomy. No evidence of significant lym phadenopathy. Postsurgical changes L5-S1 with hardware in place. IMPRESSION: No acute intra-abdominal or pelvic finding.
[2023-01-09 14:46] LABS: Absolute Lymphocytes (CBC) 1.7 K/uL (0.7-4.9); Hematocrit 17.3 % (36.0-45.0); Lymphocytes % 25.1 % (15.3-44.8); MCV 90.1 fL (80-100); MPV 7.9 fL (7.6-11.3); RBC Red Blood Cell Count 1.92 M/uL (3.86-4.86)
[2023-01-09 15:04] LABS: Bilirubin Total 0.6 mg/dL (0.2-1.0); Potassium 3.3 mEq/L (3.5-5.1); Protein, Total 7.9 g/dL (6.4-8.2)
[2023-01-09] MEDS ORDERED: PROMETHAZINE INJ 25 MG/ML AMP ONE (15:29)
[2023-01-09 15:46] LABS: Absolute Lymphocytes (CBC) 1.6 K/uL (0.7-4.9); Hematocrit 33.4 % (36.0-45.0); MCV 90.3 fL (80-100); MPV 7.7 fL (7.6-11.3)
--- NOTE | 2023-01-09 16:04 | ER ---
Nurse's Notes [facility] Name: Felicia Cheung Age: 37 yrs Sex: Female : 1985 Arrival Date: 01/09/2023 Time: 12:57 Bed 20 Private MD: Diagnosis: Abdominal pain, Generalized;Nausea with vomiting, unspecified Presentation: 01/09 13:20 Chief complaint: Patient states: abdominal pain, n/v, headache. Coronavirus screen: [facility] Vaccine status: Patient reports receiving the 2nd dose of the covid vaccine. At this time, the client does not indicate any symptoms associated with coronavirus-19. Ebola Screen: No symptoms or risks identified at this time. Initial Sepsis Screen: Does the patient meet any 2 criteria? No. Patient's initial sepsis screen is negative. Does the patient have a suspected source of infection? No. Patient's initial sepsis screen is negative. Risk Assessment: Do you want to hurt yourself or someone else? Patient reports no desire to harm self or others. Onset of symptoms was January 07, 2023. 13:20 Method Of Arrival: Ambulatory [facility] 13:27 Acuity: COMPA 3 wy1 Triage Assessment: 13:26 General: Appears distressed, uncomfortable, well groomed, well developed, well me1 nourished, Behavior is cooperative, appropriate for age, anxious. Pain: Complains of pain in abdomen Pain radiates to right back Pain currently is 9 out of 10 on a pain scale. Quality of pain is described as sharp, shooting, Pain began 2-3 days ago. 13:27 GI: Reports nausea, vomiting. : Denies burning with urination, pain with urination. 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 - Social history:: Smoking status: Reported history of juuling and/or vaping. Screenin:08 [facility] ED Fall Risk Assessment (Adult) History of falling in the last 3 months, ph including since admission No falls in past 3 months (0 pts) Confusion or Disorientation No (0 pts) Intoxicated or Sedated No (0 pts) Impaired Gait No (0 pts) Mobility Assist Device Used No (0 pt) Altered Elimination No (0 pt) Score/Fall Risk Level 0 - 2 = Low Risk Oriented to surroundings, Maintained a safe environment, Hourly rounding (assess needs \T\ fall precautionary measures) done. Abuse screen: Denies threats or abuse. Denies injuries from another. Nutritional screening: No deficits noted. Tuberculosis screening: No symptoms or risk factors identified. Assessment: 15:00 General: Appears in no apparent distress. uncomfortable, Behavior is calm, cooperative, ph appropriate for age. Pain: Complains of pain in right upper quadrant. Neuro: Level of Consciousness is awake, alert, obeys commands, Oriented to person, place, time, situation. Cardiovascular: Capillary refill < 3 seconds in bilateral fingers Patient's skin is warm and dry. Respiratory: Airway is patent Respiratory effort is even, unlabored, Respiratory pattern is regular, symmetrical. GI: Abdomen is non-distended, Reports upper abdominal pain, nausea, vomiting. Derm: Skin is pink, warm \T\ dry. Vital Signs: 13:27 BP 157 / 101; Pulse 81; Resp 20; Temp 98.9; Pulse Ox 99% ; Pain 9/10; me1 14:44 BP 142 / 94; Pulse 84; Resp 18; Pulse Ox 99% on R/A; ph 16:16 BP 157 / 87; Pulse 78; Resp 18; Temp 97.2; Pulse Ox 99% on R/A; ph 16:32 BP 135 / 81; Pulse 56; Resp 16; Pulse Ox 100% ; me1 13:27 Pain Scale: Adult me1 ED Course: 12:59 Patient arrived in ED. rg4 13:02 [facility]isab[facility] Cole[facility]C [facility] kb 13:02 Maureen Gonzalez MD is Attending Physician. kb 13:21 Triage completed. me1 13:27 Arm band placed on Patient placed in waiting room. me1 13:33 Test, Urine Sent. me1 13:33 Urinalysis w/ reflexes Sent. me1 13:53 Abdomen Limited US In Process Unspecified. EDMS 14:07 Sara Muller, RN is Primary Nurse. ph 14:07 Patient placed in an exam room, on a stretcher. ss 14:08 Patient has correct armband on for positive identification. Placed in gown. Bed in low ph position. Call light in reach. Side rails up X 1. Pulse ox on. NIBP on. Door closed. Noise minimized. Warm blanket given. 14:17 CT Abd/Pelvis - IV Contrast Only In Process Unspecified. EDMS 16:33 No provider procedures requiring assistance completed. Patient did not have IV access me1 during this emergency room visit. Administered Medications: 14:43 Drug: NS 0.9% IV 1000 ml Route: IV; Rate: 1 bolus; Site: left antecubital; ph 16:42 Follow up: Response: No adverse reaction; IV Status: Completed infusion ph 14:43 Drug: Famotidine IVP 20 mg Route: IVP; Site: left antecubital; ph 16:42 Follow up: Response: No adverse reaction ph 14:43 Drug: TORadol - Ketorolac IVP 15 mg Route: IVP; Site: left antecubital; ph 16:42 Follow up: Response: No adverse reaction; Pain is decreased ph 14:43 Drug: Ondansetron IVP 4 mg Route: IVP; Site: left antecubital; ph 16:42 Follow up: Response: No adverse reaction ph 15:45 Drug: Promethazine IVP 12.5 mg Route: IVP; Site: left antecubital; ph 16:42 Follow up: Response: No adverse reaction; Nausea is decreased ph Medication: 14:08 VIS not applicable for this client. ph Outcome: 16:03 Discharge ordered by . kb 16:44 Discharged to home ambulatory. ph 16:44 Condition: good 16:44 Discharge instructions given to patient, Instructed on discharge instructions, follow up and referral plans. medication usage, Demonstrated understanding of instructions, follow-up care, medications, Prescriptions given X 1. 16:44 Patient left the ED. ph Signatures: Dispatcher [employer] EDIN Elisabet Coley, Madiha Goyal RN RN Sara Muller, AMI RN Harika Rosales 4 Ekaterina Abraham RN RN me1 Corrections: (The following items were deleted from the chart) 13:28 13:20 Acuity: COMPA 4 me1 me1
--- NOTE | 2023-01-09 16:04 | EDPHYS ---
Physician Documentation [facility] [place], [place] Name: Felicia Cheung Age: 37 yrs Sex: Female : 1985 Arrival Date: 01/09/2023 Time: 12:57 Bed 20 Private MD: ED Physician Maureen Gonzalez HPI: 01/09 13:56 This 37 yrs old Female presents to ER via Ambulatory with complaints of Vomiting, kb Abdominal Pain. 13:56 The patient presents to the emergency department with nausea, vomiting, abdominal pain. kb Onset: The symptoms/episode began/occurred 3 day(s) ago. Possible causes: unknown. The symptoms are aggravated by nothing. The symptoms are alleviated by nothing. Associated signs and symptoms: Pertinent positives: abdominal pain, nausea, vomiting. Severity of symptoms: At their worst the symptoms were moderate in the emergency department the symptoms are unchanged. The patient has not experienced similar symptoms in the past. The patient has not recently seen a physician. 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 - Social history:: Smoking status: Reported history of juuling and/or vaping. ROS: 13:58 Constitutional: Negative for fever, chills, and weight loss. kb 13:58 Abdomen/GI: Positive for abdominal pain, nausea and vomiting, Negative for diarrhea, constipation, abdominal cramps, abdominal distension, anorexia. 13:58 All other systems are negative. Exam: 13:58 Constitutional: This is a well developed, well nourished patient who is awake, alert, kb and in no acute distress. Head/Face: Normocephalic, atraumatic. ENT: Moist Mucous membranes Cardiovascular: Regular rate and rhythm with a normal S1 and S2. No gallops, murmurs, or rubs. No pulse deficits. Respiratory: Respirations even and unlabored. No increased work of breathing. Talking in full sentences Skin: Warm, dry with normal turgor. Normal color. MS/ Extremity: Pulses equal, no cyanosis. Neurovascular intact. Full, normal range of motion. Neuro: Awake and alert, GCS 15, oriented to person, place, time, and situation. Moves all extremities. Normal gait. 13:58 Abdomen/GI: Inspection: abdomen appears normal, Bowel sounds: normal, Palpation: soft, in all quadrants, mild abdominal tenderness, in all quadrants, moderate abdominal tenderness, in the right upper quadrant. Vital Signs: 13:27 BP 157 / 101; Pulse 81; Resp 20; Temp 98.9; Pulse Ox 99% ; Pain 9/10; me1 14:44 BP 142 / 94; Pulse 84; Resp 18; Pulse Ox 99% on R/A; ph 16:16 BP 157 / 87; Pulse 78; Resp 18; Temp 97.2; Pulse Ox 99% on R/A; ph 16:32 BP 135 / 81; Pulse 56; Resp 16; Pulse Ox 100% ; me1 13:27 Pain Scale: Adult me1 MDM: 13:02 Patient medically screened. kb 13:59 Differential diagnosis: Nonspecific abd pain, gastritis, cholecystitis, pancreatitis, kb post surgical infection. Data reviewed: vital signs, nurses notes. 16:02 Counseling: I had a detailed discussion with the patient and/or guardian regarding: the kb historical points, exam findings, and any diagnostic results supporting the discharge/admit diagnosis, lab results, radiology results, the need for outpatient follow up, a family practitioner, to return to the emergency department if symptoms worsen or persist or if there are any questions or concerns that arise at home. 16:06 ED course: Pt reports she had a normal cycle last week. Denies any active bleeding. CBC kb repeated due to low H\T\H without explanation. Repeat CBC shows mild anemia without indication for transfusion. . 01/09 13:14 Order name: CBC with Diff; Complete Time: 14:51 kb 01/09 13:14 Order name: CMP; Complete Time: 15:04 kb 01/09 13:14 Order name: Lipase; Complete Time: 15:04 kb 01/09 13:14 Order name: Test, Urine; Complete Time: 13:48 kb 01/09 13:14 Order name: Urinalysis w/ reflexes; Complete Time: 13:48 kb 01/09 15:08 Order name: Type And Screen kb 01/09 15:12 Order name: CBC with Diff; Complete Time: 15:57 kb 01/09 13:14 Order name: Abdomen Limited US; Complete Time: 14:21 kb 01/09 13:14 Order name: CT Abd/Pelvis - IV Contrast Only; Complete Time: 14:29 kb 01/09 13:14 Order name: IV Saline Lock; Complete Time: 14:43 kb 01/09 13:14 Order name: Labs collected and sent; Complete Time: 14:43 kb Administered Medications: 14:43 Drug: NS 0.9% IV 1000 ml Route: IV; Rate: 1 bolus; Site: left antecubital; ph 16:42 Follow up: Response: No adverse reaction; IV Status: Completed infusion ph 14:43 Drug: Famotidine IVP 20 mg Route: IVP; Site: left antecubital; ph 16:42 Follow up: Response: No adverse reaction ph 14:43 Drug: TORadol - Ketorolac IVP 15 mg Route: IVP; Site: left antecubital; ph 16:42 Follow up: Response: No adverse reaction; Pain is decreased ph 14:43 Drug: Ondansetron IVP 4 mg Route: IVP; Site: left antecubital; ph 16:42 Follow up: Response: No adverse reaction ph 15:45 Drug: Promethazine IVP 12.5 mg Route: IVP; Site: left antecubital; ph 16:42 Follow up: Response: No adverse reaction; Nausea is decreased ph Disposition: 16:52 I reviewed the patient's care provided by Advanced Practice Provider \T\ agree w/ the cp3 diagnosis \T\ care plan. I personally saw the pt \T\ performed a substantive portion of the visit, incldng all aspects of the (History/Exam/Medical Decision Making). Disposition Summary: 01/09/23 16:03 Discharge Ordered Location: Home kb Condition: Stable kb Diagnosis - Abdominal pain, Generalized kb - Nausea with vomiting, unspecified kb Followup: kb - With: Emergency Department - When: As needed - Reason: Worsening of condition Followup: kb - With: Private Physician - When: 2 - 3 days - Reason: Recheck today's complaints, Continuance of care, Re-evaluation by your physician Discharge Instructions: - Discharge Summary Sheet kb - Nausea and Vomiting, Adult, [id number] kb - Abdominal Pain, Adult, [id number] kb Forms: - Medication Reconciliation Form kb - Thank You Letter kb - Antibiotic Education kb - Prescription Opioid Use kb - Patient Portal Instructions kb - Work release form me1 Prescriptions: - promethazine 25 mg Oral Tablet - take 1 tablet by ORAL route every 8 hours As needed; 10 tablet; Refills: 0, kb Product Selection Permitted Signatures: Dispatcher [employer] EDMS Elisabet Coley FNP-C FNP-Ckb Pinckney, Cwanza, MD MD cp3 Sara Muller RN RN ph Ekaterina Abraham RN RN me1 Corrections: (The following items were deleted from the chart) 14:04 14:01 Special discussion: ED attending note: Patient is a 37-year-old female who cp3 endorses suicide attempt. Taking hydroxyzine and [place] prior to arrival. Police notified by friend named Henrry. Patient endorses suicidal thoughts and ideations secondary to severe depression. Patient actively endorsing that she wants to . Patient under SVETLANA. Poison control has been contacted and supportive care recommended. Observation per poison control recommendations and mental health evaluation for inpatient psych transfer. cp3
[2023-01-09 16:55] VITALS: TEMP 97.2
[2023-01-09 16:56] VITALS: BP 135/81; O2SAT 100
== END 2023-01-09 16:44 | disposition home or self-care (01) ==
LOC: ER 12:57
DX: R10.84 Generalized abdominal pain (principal); R11.2 Nausea with vomiting, unspecified; I10 Essential (primary) hypertension
CPT/HCPCS: 96361; 85025 ×2; 81001; 36415; 86900; 86850; 81025; 86901; 83690; 80053; 74177; 76705; 96375; 96374; 99284; Q9967; J2550; J2405; J7030

== ENCOUNTER 2023-03-26 09:03 | Emergency (ER) | payer OTHER ==
--- OUTSIDE RECORDS SUMMARY | 2023-03-26 09:15 | XMS REPORT | Continuity of Care Document ---
:1985 Author Organization [facility] t Address [address] [facility] [address] [place] [address] Care Team Providers Name Role Phone Pcp, Patient Does Not Have A Primary Care Physician [phone] DION DOW Attending Clinician Unavailable Sanna Hoffman Attending Clinician Unavailable TRISTAN TREJO Attending Clinician Unavailable Tristan Christian Attending Clinician Unknown, Attending Attending Clinician Unavailable Leann Yao MD Attending Clinician LEANN YAO Attending Clinician Unavailable AYAAN CEDEÑO Attending Clinician Unavailable Ayaan Cedeño MD Attending Clinician Dion Dow MD Attending Clinician THEODORE FOREMAN Attending Clinician Unavailable Theodore Foreman MD Attending Clinician Shon HUNTER, Shane Wilson Attending Clinician [phone] Darian Roche MD Attending Clinician TATI DAMON Attending Clinician Unavailable Tati Damon MD Attending Clinician CAYDEN RODRIGUEZ Attending Clinician Unavailable CAYDEN RODRIGUEZ Attending Clinician Unavailable Doctor Unassigned, [place] Attending Clinician Unavailable Luiza ROSS, Gabriela Attending Clinician GABRIELA JARRETT Attending Clinician Unavailable MAGGIE LOW Attending Clinician Unavailable MAIK HADLEY Attending Clinician Unavailable Maik Hadley DO Attending Clinician Bryson Hansen Attending Clinician BRYSON DAVE Attending Clinician Unavailable BENNIE DOW III Attending Clinician Unavailable King DINA MD, James C Attending Clinician Fernanda Sargent RN Attending Clinician Unavailable Graham Hernandez Attending Clinician GRAHAM MERCHANT Attending Clinician Unavailable Shane Stone MD Attending Clinician [phone] Farzaneh Cartwright MD Attending Clinician Tashi Martínez MD Attending Clinician TASHI MARTÍNEZ Attending Clinician Unavailable Camila Randle MD Attending Clinician AYE MEJIA Attending Clinician Unavailable Roberto HUNTER, Aye Attending Clinician FELIPA SMITH Attending Clinician Unavailable Felipa Smith PA-C Attending Clinician Yesi Cifuentes RN Attending Clinician Unavailable Lab, Adc Fam Pob I Attending Clinician Unavailable Venus Limon Attending Clinician DION DOW Admitting Clinician Unavailable Sanna Hoffman Admitting Clinician Unavailable MAGGIE LOW Admitting Clinician Unavailable MAIK HADLEY Admitting Clinician Unavailable TASHI MARTÍNEZ Admitting Clinician Unavailable AYE MEJIA Admitting Clinician Unavailable Payers Payer Name Policy Type Policy Number Effective Date Expiration Date Kehinde mcgeece MEDICAID COMM [id number] 2019 HEALTH CHOICE 00:00:00 FORMERLY [facility] [id number] 2019 CHOICE [place] STAR 00:00:00 Problems Condition Condition Condition Status Onset Resolution Last Treating Co mments Source Name Details Category Date Date Treatment Clinician Date Pars Pars Disease Active [facility] lumbar lumbar 00:00: Medical spine spine 00 Center Lumbago Lumbago Disease Active [facility] 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 [facility]: Nv dical 00 Center No known No known Disease Unive rs active active ity of problems problems [facility] Allergies, Adverse Reactions, Alerts Allergy Allergy Status Severity Reaction(s) Onset Inactive Treating Comm ents Source Name Type Date Date Clinician No Known DA Active [facility] 2019[facility]0 [facility] [place] No Known DA Active U 2019-0 [facility] Allergie -22 [facility] [place] CODEINE DA Active U VOMIT HYPER 2007-0 [facility] 3-14 [facility] [place] No Known DA Active U 2006-0 [facility] Contrast 3-14 [facility] Allergie 00:[facility] [place] No Known DA Active U 2006-0 [facility] Food 3-14 [facility] All[facility] 00:[facility] [place] No Known DA Active U 2006-0 [facility] Other 3-14 [facility] [place] NO KNOWN [facility] Drug Active Univers ALLERGIE Class ity of S [facility] Social History Social Habit Start Date Stop Date Quantity Comments Source History SDOH University o f Alcohol Frequency [place] M edical Branch History [facility] University o f Alcohol Std Drinks [place] [facility] Binge [place] [facility] al Branch Gender identity [facility] Sexual orientation [facility] History of tobacco Cigarette Smoker [facility] use Medical Center History [facility] Non-Med Medical Center Alcohol intake 2022-12-16 2022-12-16 [facility] alcohol Medical Center (finding) History [facility] 2022-12-13 2022-12-[address] [facility] Transport Med 00:00:00 00:00:[address] History [facility] 2022-12-13 2022-12-[address] [facility] Housing Unable to 00:00:00 00:00:00 Medical Center Pay History [facility] 2022-12-13 2022-12-[address] [facility] Housing Places 00:00:00 00:00:00 Medical Ce nter Lived History [facility] 2022-12-13 2022-12-[address] [facility] Housing Homeless 00:00:00 00:00:00 Medical Center Last Year Exposure to 2022-12-02 2022-12-[address] [facility] SARS-CoV-2 (event) 00:00:00 11:58:00 [facility] Tobacco use and 2022-12-11 2022-12-[address] [facility] exposure 00:00:00 00:00:00 tobacco non-user Medical Center Alcohol Comment 2022-12-11 2022-12-[address] [facility] 00:00:00 00:00:00 Medical Center History of Social 2022-11-22 2022-11-22 Univers ity of function 00:00:00 00:00:00 [facility] Sex Assigned At [address] [facility] 00:00:00 00:00:00 Medical Center Smoking Status Start Date Stop Date Source Unknown if ever smoked [facility] Ex-smoker 2022-12-11 00:00:00 2022-12-11 00:00:[address] [facility] Never smoked tobacco [facility] [place] [facility] Medications Ordered Filled Start Stop Current Ordering Indication Dosage Frequency Signature Comments Components Source Medication Medication Date Date Medication? Clinician (SIG) Name Name dexamethaso 2022-06- No [id number] 10mg U nivers ne 0-16 10-16 ity of (DECADRON) 16:15: 15:11 [place] injection 00 :00 Medical 10 mg Branch dexamethaso 2022-06- No [id number] 10mg 10 mg, Univers ne 0-16 10-16 Intramuscu ity of (DECADRON) 16:15: 15:11 lar, ONCE, [place] injection 00 :00 1 dose, On Medi jono 10 mg Mon Branch 03/24/23 at 1115, Routine dexamethaso 2022-06- No [id number] 10mg U nivers ne 0-16 10-16 ity of (DECADRON) 16:00: 15:15 [place] injection 00 :27 Medical 10 mg Branch amoxicillin 2022-06- Yes [id number] 1{tbl} Take 1 Univers -clavulanat 0-16 10-27 tablet by it y of e 00:00: 04:59 mouth in [place] (AUGMENTIN) 00 :00 the Medical 875-125 mg morning Branch per tablet and 1 tablet in the evening. Do all this for 10 days. promethazin 2022-06- Yes [id number] 5mL Take 5 mL Univers e-dextromet 0-16 10-27 by mouth 4 i ty of horphan 00:00: 04:59 (four) [place] 6.25-15 00 :00 times Medical mg/5 mL daily for Branch syrup 10 days. benzonatate 2022-06 Yes [id number] 200mg Take 2 Univers 100 mg 0-09 capsules ity of capsule 00:00: by mouth [place] 00 every 8 Medical (eight) Branch hours as needed for Cough. bromphenira 2022-06 Yes [id number] 10mL Take 10 mL Univers mine-pseudo 0-09 by mouth 4 it y of ephedrine-D 00:00: (four) [place] (BROMFED 00 times Medical DM) 2-30-10 daily as Bran ch mg/5 mL needed for syrup Congestion /Allergies . methylPREDN 2022-06 Yes [id number] Take by Univers ISolone 0-09 mouth ity of (MEDROL, 00:00: SEE-INSTRU Yogesh as ERICK,) 4 mg 00 CTIONS. Medica l tablets follow Branch package directions benzonatate 2022-06 Yes [id number] 200mg Take 2 Univers 100 mg 0-09 capsules ity of capsule 00:00: by mouth [place] 00 every 8 Medical (eight) Branch hours as needed for Cough. bromphenira 2022-06 Yes [id number] 10mL Take 10 mL Univers mine-pseudo 0-09 by mouth 4 it y of ephedrine-D 00:00: (four[place] (BROMFED 00 times Medical DM) 2-30-10 daily as Bran ch mg/5 mL needed for syrup Congestion /Allergies . methylPREDN 2022-06 Yes [id number] Take by Univers ISolone 0-09 mouth ity of (MEDROL, 00:00: SEE-INSTRU Yogesh as ERICK,) 4 mg 00 CTIONS. Medica l tablets follow Branch package directions famotidine 2022-06 No 20mg 20 mg, Univ ers (PEPCID AC) 0-03-09 Oral, ity of tablet 20 21:00: 20:57 ONCE, 1 [place] mg 00 :00 dose, On Medical [place] Branch 03/09/23 at 1600, GM dexamethaso 2022-06 No 10mg 10 mg, Uni vers ne sod phos 0-03-09 Intramuscu i ty of PF 21:00: 20:57 lar, ONCE, [place] injection 00 :00 1 dose, On Medi jono 10 mg [facility] 03/09/23 at 1600, 1 mL predniSONE 2022-06 Yes [id number] 60mg Take 3 Univers 20 mg 0-01 tablets by ity of tablet 00:00: mouth 00 every Medical morning. Branch famotidine 2022-06 Yes [id number] 20mg Take 1 Univers (PEPCID) 20 0-01 tablet by ity of mg tablet 00:00: [place] the Medical morning Branch and 1 tablet in the evening. famotidine 2022-06 Yes [id number] 20mg Take 1 Univers (PEPCID) 20 0-01 tablet by ity of mg tablet 00:00: [place] the Medical morning Branch and 1 tablet in the evening. famotidine 2022-06 Yes [id number] 20mg Take 1 Univers (PEPCID) 20 0-01 tablet by ity of mg tablet 00:00: [place] 00 the Medical morning Branch and 1 tablet in the evening. predniSONE 2022-06- No [id number] 60mg Take 3 Univers 20 mg 0-01 -09 tablets by ity of tablet 00:00: 00:00 mouth [place] 00 :00 every Medical morning. Branch hydrOXYzine No 25mg 25 mg, Uni vers (ATARAX) 02-18 Oral, ity of tablet 25 05:45: 05:43 ONCE, 1 [place] mg 00 :00 dose, On Medical Tue Branch 02/18/23 at 0045, GM NaCl 0.9% 2022- No 500mL at 999 [facility] ers (NS) bolus 02-18 mL/hr, 500 it y of infusion 04:00: 03:30 mL, IV [place] 500 mL 00 :00 Piggyback, Medical ONCE, 1 Branch dose, On Fri02/17/23 at 2300, STAT famotidine 2022- No 20mg 20 mg, Univ ers (PEPCID 02-18 Slow IV ity of (PF)) 03:00: 03:19 Push, [place] injection 00 :00 ONCE, 1 Medical 20 mg dose, On Branch [facility] 02/17/23 at 2200, GM diphenhydrA 2022- No 25mg 25 mg, Uni vers MINE 02-18 Slow IV ity of (BENADRYL) 03:00: 03:16 Push, [place] injection 00 :00 ONCE, 1 Medical 25 mg dose, On Branch Fri02/17/23 at 2200, STAT dexamethaso 2022- No 10mg 10 mg, Uni vers ne sod phos 02-18 Slow IV ity of PF 03:00: 03:17 Push, [place] injection 00 :00 ONCE, 1 Medical 10 mg dose, On Branch [facility] 02/17/23 at 2200, 1 mL hydrOXYzine Yes [id number] 25mg Take 1 Univers 25 mg 9 tablet by ity of tablet 00:00: mouth [place] 00 every 6 Medical (six) Branch hours as needed for Itching (rash/hive s). hydrOXYzine 2023-0 Yes [id number] 25mg Take 1 Univers 25 mg 9-12 tablet by ity of tablet 00:00: mouth [place] 00 every 6 Medical (six) Branch hours as needed for Itching (rash/hive s). hydrOXYzine 2023-0 Yes [id number] 25mg Take 1 Univers 25 mg 9-12 tablet by ity of tablet 00:00: mouth [place] 00 every 6 Medical (six) Branch hours as needed for Itching (rash/hive s). hydrOXYzine 2023-0 Yes [id number] 25mg Take 1 Univers 25 mg 9-12 tablet by ity of tablet 00:00: mouth [place] 00 every 6 Medical (six) Branch hours as needed for Itching (rash/hive s). predniSONE 2023-0 2023- Yes [id number] 20mg Take 1 Univers 20 mg 02-1816 tablet by ity of tablet 00:00: 04:59 mouth in [place] 00 :00 the Medical morning Branch and 1 tablet in the evening. Do all this for 3 days. EPINEPHrine 2023-0 2023- Yes [id number] .3mg 0.3 mL by Univers (EPIPEN) 02-18 Intramuscu ity of 0.3 mg/0.3 00:00: 04:59 lar route [place] mL 00 :00 once now Medical injection for 1 Branch dose. biotin 1 mg 2023-0 Yes Take by [facility] 12:53: [address] biotin 1 mg 2023-0 Yes Take by [facility] Cap 7-12 [facility]. [facility] 12:53: [address] biotin 1 mg 2023-0 Yes Take by [facility] Cap 7-12 [facility]. [facility] 12:53: [address] biotin 1 mg 2023-0 Yes Take by [facility] Cap 7-12 [facility]. [facility] 12:53: [address] biotin 1 mg 2023-0 Yes Take by [facility] Cap 7-12 mouth. [facility]ukes 12:53: [address] biotin 1 mg 2023-0 Yes Take by [facility] Cap 7-12 mouth. [facility]ukes 12:53: [address] biotin 1 mg 2023-0 Yes Take by [facility] Cap 7-12 [facility]. [facility] 12:53: Medical Center Yes 1{tbl} QD Take 1 [facility] vitamin 7-11 tablet by [facility]ukes w/calcium-i 13:00: mouth Medic al beatris-folate 00 daily. Velpen ( PLUS) 27 mg iron- 1 mg Tab Yes 1{tbl} QD Take 1 [facility] t vitamin 7-11 tablet by [facility]ukes w/calcium-i 13:00: mouth Medic al beatris-folate 00 daily. Velpen ( PLUS) 27 mg iron- 1 mg Tab 0 Yes 1{tbl} QD Take 1 [facility] t vitamin 7-11 tablet by Lukes w/calcium-i 13:00: mouth Medic al beatris-folate 00 daily. Velpen ( PLUS) 27 mg iron- 1 mg Tab Yes 1{tbl} QD Take 1 [facility] t vitamin 7-11 tablet by Lukes w/calcium-i 13:00: mouth Medic al beatris-folate 00 daily. Velpen ( PLUS) 27 mg iron- 1 mg Tab Yes 1{tbl} QD Take 1 [facility] t vitamin 7-11 tablet by Lukes w/calcium-i 13:00: mouth Medic al beatris-folate 00 daily. Velpen ( PLUS) 27 mg iron- 1 mg Tab Yes 1{tbl} QD Take 1 [facility] t vitamin 7-11 tablet by Lukes w/calcium-i 13:00: mouth Medic al beatris-folate 00 daily. Velpen ( PLUS) 27 mg iron- 1 mg Tab Yes 1{tbl} QD Take 1 [facility] t vitamin 7-11 tablet by Lukes w/calcium-i 13:00: mouth Medic al beatris-folate 00 daily. Velpen ( PLUS) 27 mg iron- 1 mg Tab acyclovir 2022- No 800mg Q.[id number] Take [address] (ZOVIRAX) 12-17 [id number] tablet L ukes 800 MG 00:00: 23:59 [...] Nausea for up to 3 days. acyclovir 2023-0 2023- No 800mg Q.[id number] Take [address] [facility] (ZOVIRAX) 12-17 [id number] tablet L ukes 800 MG 00:00: 23:59 3D (800 mg Medical tablet 00 :00 total) by Center mouth 3 (three) times daily for 3 days. ondansetron 2023-0 2023- No 4mg Take [address] [facility] (ZOFRAN-ODT 12-17 tablet (4 [facility] ) 4 MG 00:00: 23:59 mg total) Medic al disintegrat 00 :00 by mouth Cent er ing tablet every 12 (twelve) hours as needed for Nausea for up to 3 days. acyclovir 3-0 3- No 800mg Q.[id number] Take [address] (ZOVIRAX) 12-17 [id number] tablet L ukes 800 MG 00:00: 23:59 3D (800 mg Medical tablet 00 :00 total) by Center mouth 3 (three) times daily for 3 days. ondansetron 3-0 3- No 4mg Take [address] [facility] (ZOFRAN-ODT 12-17 tablet (4 [facility] ) 4 MG 00:00: 23:59 mg total) Medic al disintegrat 00 :00 by mouth Cent er ing tablet every 12 (twelve) hours as needed for Nausea for up to 3 days. acyclovir 2023-0 2023- No 800mg Q.[id number] Take [address] (ZOVIRAX) 12-17 [id number] tablet L ukes 800 MG 00:00: 23:59 3D (800 mg Medical tablet 00 :00 total) by Center mouth 3 (three) times daily for 3 days. ondansetron 2023-0 2023- No 4mg Take [address] [facility] (ZOFRAN-ODT 12-17 tablet (4 [facility] ) 4 MG 00:00: 23:59 mg total) Medic al disintegrat 00 :00 by mouth Cent er ing tablet every 12 (twelve) hours as needed for Nausea for up to 3 days. acyclovir 2023-0 2023- No 800mg Q.[id number] Take [address] [address] (ZOVIRAX) 12-17 [id number] tablet L ukes 800 MG 00:00: 23:59 3D (800 mg Medical tablet 00 :00 total) by Center mouth 3 (three) times daily for 3 days. ondansetron 2023-0 2023- No 4mg Take [address] [facility] (ZOFRAN-ODT 12-17 tablet (4 [facility] ) 4 MG 00:00: 23:59 mg total) Medic al disintegrat 00 :00 by mouth Cent er ing tablet every 12 (twelve) hours as needed for Nausea for up to 3 days. acyclovir 2023-0 2023- No 800mg Q.[id number] Take [address] (ZOVIRAX) 12-17 [id number] tablet L ukes 800 MG 00:00: 23:59 3D (800 mg Medical tablet 00 :00 total) by Center mouth 3 (three) times daily for 3 days. ondansetron 2023-0 3- No 4mg Take [address] [facility] (ZOFRAN-ODT 12-17 tablet (4 [facility] ) 4 MG 00:00: 23:59 mg total) Medic al disintegrat 00 :00 by mouth Cent er ing tablet every 12 (twelve) hours as needed for Nausea for up to 3 days. acyclovir 2023-0 2023- No 800mg Q.[id number] Take [address] (ZOVIRAX) 12-17 [id number] tablet L ukes 800 MG 00:00: 23:59 3D (800 mg Medical tablet 00 :00 total) by Center mouth 3 (three) times daily for 3 days. ondansetron 2023-0 2023- No 4mg Take [address] [facility] (ZOFRAN-ODT 12-17 tablet (4 [facility] ) 4 MG 00:00: 23:59 mg total) Medic al disintegrat 00 :00 by mouth Cent er ing tablet every 12 (twelve) hours as needed for Nausea for up to 3 days. docusate 2023-0 2023- No 100mg Take 1 [facility] t sodium 7-10 07-20 capsule Lukes (COLACE) 00:00: 23:59 (100 mg Medic al 100 MG 00 :00 total) by Center capsule mouth 2 (two) times daily as needed for Constipati on for up to 10 days. docusate 2022-0 3- No 100mg Take 1 [facility] t sodium 7-10 07-20 capsule Lukes (COLACE) 00:00: 23:59 (100 mg Medic al 100 MG 00 :00 total) by Center capsule mouth 2 (two) times daily as needed for Constipati on for up to 10 days. docusate 2022-0 3- No 100mg Take 1 [facility]I [facility] t sodium 7-10 07-20 capsule Lukes (COLACE) 00:00: 23:59 (100 mg Medic al 100 MG 00 :00 total) by Center capsule mouth 2 (two) times daily as needed for Constipati on for up to 10 days. docusate 2022-0 2022- No 100mg Take 1 [facility] t sodium 7-10 07-20 capsule Lukes (COLACE) 00:00: 23:59 (100 mg Medic al 100 MG 00 :00 total) by Center capsule mouth 2 (two) times daily as needed for Constipati on for up to 10 days. docusate 2022-0 2022- No 100mg Take 1 [facility] t sodium 7-10 07-20 capsule Lukes (COLACE) 00:00: 23:59 (100 mg Medic al 100 MG 00 :00 total) by Center capsule mouth 2 (two) times daily as needed for Constipati on for up to 10 days. docusate 2022-0 2022- No 100mg Take 1 [facility] t sodium 7-10 07-20 capsule Lukes (COLACE) 00:00: 23:59 (100 mg Medic al 100 MG 00 :00 total) by Center capsule mouth 2 (two) times daily as needed for Constipati on for up to 10 days. docusate 2022-0 2022- No 100mg Take 1 [facility] t sodium 7-10 07-20 capsule Lukes (COLACE) 00:00: 23:59 (100 mg Medic al 100 MG 00 :00 total) by Center capsule mouth 2 (two) times daily as needed for Constipati on for up to 10 days. lisinopril- 2023-0 2023- No 1{tbl} QD Take [address] hydroCHLORO 7-06 07-06 tablet by Audrey [facility]ilmans thiazide 22:49: 00:00 mouth Medical (PRINZIDE,Z 19 :00 daily. Velpen ESTORETIC) 20-25 mg per tablet lisinopril- 3-0 3- No 1{tbl} QD Take [address] hydroCHLORO 7-06 07-06 tablet by [facility]mans thiazide 22:49: 00:00 mouth Medical (PRINZIDE,Z 19 :00 daily. Velpen ESTORETIC) 20-25 mg per tablet lisinopril- 2022-0 3- No 1{tbl} QD Take [address] hydroCHLORO 7-06 07-06 tablet by [facility] thiazide 22:49: 00:00 mouth Medical (PRINZIDE,Z 19 :00 daily. Velpen ESTORETIC) 20-25 mg per tablet lisinopril- 2022-0 3- No 1{tbl} QD Take [address] hydroCHLORO 7-06 07-06 tablet by [facility]rey [facility]ilmans thiazide 22:49: 00:00 mouth Medical (PRINZIDE,Z 19 :00 daily. Velpen ESTORETIC) 20-25 mg per tablet lisinopril- 2022-0 3- No 1{tbl} QD Take [address] hydroCHLORO 7-06 07-06 tablet by [facility] thiazide 22:49: 00:00 mouth Medical (PRINZIDE,Z 19 :00 daily. Velpen ESTORETIC) 20-25 mg per tablet lisinopril- 3-0 2023- No 1{tbl} QD Take [address] hydroCHLORO 7-06 07-06 tablet by Audrey gilmans thiazide 22:49: 00:00 mouth Medical (PRINZIDE,Z 19 :00 daily. Velpen ESTORETIC) 20-25 mg per tablet lisinopril- 3-0 2023- No 1{tbl} QD Take [address] hydroCHLORO 7-06 07-06 tablet by [facility] thiazide 22:49: 00:00 mouth Medical (PRINZIDE,Z 19 :00 daily. Velpen ESTORETIC) 20-25 mg per tablet lisinopril- 3-0 Yes 1{tbl} QD Take [address] hydroCHLORO 7-05 tablet by Todd aguilar thiazide 08:45: mouth Medical (PRINZIDE,Z 41 daily. Velpen ESTORETIC) 20-25 mg per tablet Yes 1{tbl} QD Take 1 [facility] vitamin 7-05 tablet by Delfin w/calcium-i 08:39: mouth Medic al beatris-folate 15 daily. Velpen ( PLUS) 27 mg iron- 1 mg Tab biotin 1 mg Yes Take by [facility] Cap 7-05 mouth. Delfin 08:39: Medical 15 Velpen EPINEPHrine 3- No .3mg 0.3 mg, Un amisha (PF) 12-04 Subcutaneo ity of 1:1,000 (1 00:15: 23:12 [place], ONCE, [place] mg/mL) 00 :00 1 dose, On Medical (ADRENALIN Tue Branch (PF)) 12/03/22 at injection 1915, 0.3 mg Routine valACYclovi 2022- No [id number] 1g Take 1 Univers r (VALTREX) 12-04- tablet by it y of 1 gram 00:00: 04:59 mouth in [place] tablet 00 :00 the Medical morning Branch and 1 tablet in the evening. Do all this for 7 days. valACYclovi 2022- No [id number] 1g Take 1 Univers r (VALTREX) 12-04- tablet by it y of 1 gram 00:00: 04:59 mouth in [place] tablet 00 :00 the Medical morning Branch and 1 tablet in the evening. Do all this for 7 days. predniSONE 2022- No [id number] 40mg Take 2 Univers 20 mg -03 01-05 tablets by ity of tablet 00:00: 04:59 mouth in [place] 00 :00 the Medical morning Branch for 6 days. predniSONE 2022-0 2022- No [id number] 40mg Take 2 Univers 20 mg 6-03 01-05 tablets by ity of tablet 00:00: 04:59 mouth in [place] 00 :00 the Medical morning Branch for 6 days. predniSONE 2022-2022- No [id number] 40mg Take 2 Univers 20 mg -03 [...] ONCE, 1 dose, On Fri12/03/22 at 1815, GM ondansetron 2022- No 8mg 8 mg, Slow Univers (ZOFRAN 12-03 IV Push, ity of (PF)) 23:00: 22:54 ONCE, 1 [place] injection 8 00 :00 dose, On Medi jono mg [facility] 12/03/22 at 1800, GM famotidine 2022- No 20mg 20 mg, Univ ers (PEPCID 12-03 Slow IV ity of (PF)) 22:30: 22:38 Push, [place] injection 00 :00 ONCE, 1 Medical 20 mg dose, On Branch Fri12/03/22 at 1730, GM diphenhydrA 2022- No 50mg 50 mg, Uni [...] Fri12/03/22 at 1730, 1 mL EPINEPHrine Yes [id number] Self-injec Univers (EPIPEN) 12-03 t once in ity of 0.3 mg/0.3 00:00: event of Yogesh as mL 00 severe Medical injection allergic Branch reaction ondansetron Yes [id number] 1-2 U nivers 4 mg tablet 12-03 tablets ity o f 00:00: every 8 [place] 00 hours as Medical needed for Branch nausea EPINEPHrine 2022-0 Yes [id number] Self-injec Univers (EPIPEN) 6-27 t once in ity of 0.3 mg/0.3 00:00: event of [place] as mL 00 severe Medical injection allergic Branch reaction ondansetron 2023-0 Yes [id number] 1-2 U nivers 4 mg tablet 6-27 tablets ity o f 00:00: every 8 [place] 00 hours as Medical needed for Branch nausea EPINEPHrine 2023-0 Yes [id number] Self-injec Univers (EPIPEN) 6-27 t once in ity of 0.3 mg/0.3 00:00: event of [place] as mL 00 severe Medical injection allergic Branch reaction ondansetron 2023-0 Yes [id number] 1-2 U nivers 4 mg tablet 6-27 tablets ity o f 00:00: every 8 [place] 00 hours as Medical needed for Branch nausea EPINEPHrine 2023-0 Yes [id number] Self-injec Univers (EPIPEN) 6-27 t once in ity of 0.3 mg/0.3 00:00: event of [place] as mL 00 severe Medical injection allergic Branch reaction ondansetron 2023-0 Yes [id number] 1-2 U nivers 4 mg tablet 6-27 tablets ity o f 00:00: every 8 [place] 00 hours as Medical needed for Branch nausea EPINEPHrine 2023-0 Yes [id number] Self-injec Univers (EPIPEN) 6-27 t once in ity of 0.3 mg/0.3 00:00: event of [place] as mL 00 severe Medical injection allergic Branch reaction ondansetron 2023-0 Yes [id number] 1-2 U nivers 4 mg tablet 6-27 tablets ity o f 00:00: every 8 [place] 00 hours as Medical needed for Branch nausea EPINEPHrine 2023-0 Yes [id number] Self-injec Univers (EPIPEN) 6-27 t once in ity of 0.3 mg/0.3 00:00: event of [place] as mL 00 severe Medical injection allergic Branch reaction ondansetron 2023-0 Yes [id number] 1-2 U nivers 4 mg tablet 6-27 tablets ity o f 00:00: every 8 [place] 00 hours as Medical needed for Branch nausea EPINEPHrine 2023-0 Yes [id number] Self-injec Univers (EPIPEN) 6-27 t once in ity of 0.3 mg/0.3 00:00: event of [place] as mL 00 severe Medical injection allergic Branch reaction ondansetron 2022-0 Yes [id number] 1-2 U nivers 4 mg tablet 6-27 tablets ity o f 00:00: every 8 [place] 00 hours as Medical needed for Branch nausea methylPREDN 2023-0 Yes [id number] Take by Univers ISolone 6-14 mouth ity of (MEDROL, 00:00: SEE-INSTRU Yogesh as ERICK,) 4 mg 00 CTIONS. Medica l tablets follow Branch package directions gabapentin 3-0 Yes [id number] 300mg Take 1 Univers 300 mg 6-14 capsule by ity of capsule 00:00: mouth in [place] 00 the Medical morning Branch and 1 capsule at noon and 1 capsule in the evening. methylPREDN 2023-0 Yes [id number] Take by Univers ISolone 6-14 mouth ity of (MEDROL, 00:00: SEE-INSTRU Yogesh as ERICK,) 4 mg 00 CTIONS. Medica l tablets follow Branch package directions gabapentin 3-0 Yes [id number] 300mg Take 1 Univers 300 mg 6-14 capsule by ity of capsule 00:00: mouth in [place] [id number] the Medical morning Branch and 1 capsule at noon and 1 capsule in the evening. methylPREDN 2023-0 Yes [id number] Take by [facility] ISolone 6-14 mouth ity of (MEDROL, 00:00: SEE-INSTRU Yogesh as ERICK,) 4 mg 00 CTIONS. Medica l tablets follow Branch package directions gabapentin 3-0 Yes [id number] 300mg Take 1 [facility] 300 mg 6-14 capsule by ity of capsule 00:00: mouth in [place] [address] the Medical morning Branch and 1 capsule at noon and 1 capsule in the evening. methylPREDN 2023-0 Yes [id number] Take by [facility] ISolone 6-14 mouth ity of (MEDROL, 00:00: SEE-INSTRU Yogesh as ERICK,) 4 mg 00 CTIONS. Medica l tablets follow Branch package directions gabapentin 2023-0 Yes [id number] 300mg Take 1 [facility] 300 mg 6-14 capsule by ity of capsule 00:00: mouth in [place] [address] the Medical morning Branch and 1 capsule at noon and 1 capsule in the evening. methylPREDN 2023-0 Yes [id number] Take by [facility] ISolone 6-14 mouth ity of (MEDROL, 00:00: SEE-INSTRU Yogesh as ERICK,) 4 mg 00 CTIONS. Medica l tablets follow Branch package directions gabapentin 2023-0 Yes [id number] 300mg Take 1 [facility] 300 mg 6-14 capsule by ity of capsule 00:00: mouth in [place] [address] the Medical morning Branch and 1 capsule at noon and 1 capsule in the evening. methylPREDN 2023-0 Yes [id number] Take by [facility] ISolone 6-14 mouth ity of (MEDROL, 00:00: SEE-INSTRU Yogesh as ERICK,) 4 mg 00 CTIONS. Medica l tablets follow Branch package directions gabapentin 2023-0 Yes [id number] 300mg Take 1 [facility] 300 mg 6-14 capsule by ity of capsule 00:00: mouth in [address] morning [place] and 1 capsule at noon and 1 capsule in the evening. methylPREDN 2023-0 Yes [id number] Take by [facility] ISolone 6-14 mouth ity of (MEDROL, 00:00: SEE-INSTRU Yogesh as ERICK,) 4 mg 00 CTIONS. Medica l tablets follow Branch package directions gabapentin 2023-0 Yes [id number] 300mg Take 1 [facility] 300 mg 6-14 capsule by ity of capsule 00:00: mouth in [address] morning [place] and 1 capsule at noon and 1 capsule in the evening. methylPREDN 2023-0 Yes [id number] Take by [facility] ISolone 6-14 mouth ity of (MEDROL, 00:00: SEE-INSTRU Yogesh as ERICK,) 4 mg 00 CTIONS. Medica l tablets follow Branch package directions gabapentin 2023-0 Yes [id number] 300mg Take 1 [facility] 300 mg 6-14 capsule by ity of capsule 00:00: mouth in [address] Medical morning [place] and 1 capsule at noon and 1 capsule in the evening. gabapentin 2023-0 Yes [id number] 300mg Take 1 [facility] 300 mg 6-14 capsule by ity of capsule 00:00: mouth in [address] morning [place] and 1 capsule at noon and 1 capsule in the evening. gabapentin 2023-0 Yes [id number] 300mg Take 1 [facility] 300 mg 6-14 capsule by ity of capsule 00:00: mouth in [address] morning [place] and 1 capsule at noon and 1 capsule in the evening. methylPREDN 2023-0 2023- No [id number] Take by [facility] 11-20 mouth ity of (MEDROL, 00:00: 00:00 SEE-INSTRU [place] ERICK,) 4 mg 00 :00 CTIONS. Medica l tablets follow [place] package directions traMADoL 50 2022- No [id number] 50mg Take 1 Uni vers mg tablet 11-20 tablet by ity of 00:00: 04:59 mouth [place] 00 :00 every 6 Medical (six) Branch hours as needed for Pain (scale 7-10) for up to 7 days. Indication s: acute pain traMADoL 50 2022- No [id number] 50mg Take 1 Uni vers mg tablet 11-20 tablet by ity of 00:00: 04:59 mouth [place] 00 :00 every 6 Medical (six) Branch hours as needed for Pain (scale 7-10) for up to 7 days. Indication s: acute pain traMADoL 50 2022- No [id number] 50mg Take 1 Uni vers mg tablet 11-20 tablet by ity of 00:00: 04:59 mouth [place] 00 :00 every 6 Medical (six) Branch hours as needed for Pain (scale 7-10) for up to 7 days. Indication s: acute pain cyclobenzap Yes 10mg 10 mg, Univ ers rine 11-19 Oral, TID, ity of (FLEXERIL) 01:00: First dose [place] tablet 10 00 on [facility] 11/18/22 at Branch 2000, Until Discontinu ed, Routine morpHINE (4 No 4mg 4 mg, Slow Univers mg/mL) 11-18 IV Push, ity of injection 4 23:30: 23:35 ONCE, 1 [place] mg 00 :00 dose, On [facility] 11/18/22 at 1830, STAT morpHINE (4 2022- No 4mg 4 mg, Slow Univers mg/mL) 11-18 IV Push, ity of injection 4 21:45: 21:46 ONCE, 1 [place] mg 00 :00 dose, On [facility] 11/18/22 at 1645, STAT NaCl 0.9% 2022- No 1000mL at 999 Uni vers (NS) bolus 11-18-12 mL/hr, ity of infusion 21:30: 23:35 1,000 mL, Yogesh as 1,000 mL 00 :00 IV Medical Infusion, Branch ONCE, 1 dose, On Fri11/18/22 at 1630, GM ketorolac 2022-0 2022- No 15mg 15 mg, Unive rs (TORADOL) 11-18 06-12 Slow IV ity of injection 21:15: 20:58 Push, [place] 15 mg 00 :00 ONCE, 1 Medical dose, On Branch Fri11/18/22 at 1615, Routine cyclobenzap 2022-0 Yes [id number] 10mg Take 1 [facility] rine 10 mg 6-12 tablet by ity of tablet 00:00: mouth [place] 00 every 8 Medical (eight) Branch hours as needed for Muscle Spasms. cyclobenzap 2022-0 Yes [id number] 10mg Take 1 [facility] rine 10 mg 6-12 tablet by ity of tablet 00:00: mouth [place] 00 every 8 Medical (eight) Branch hours as needed for Muscle Spasms. cyclobenzap 2022-0 Yes [id number] 10mg Take 1 [facility] rine 10 mg 6-12 tablet by ity of tablet 00:00: mouth [place] 00 every 8 Medical (eight) Branch hours as needed for Muscle Spasms. cyclobenzap 2022-0 Yes [id number] 10mg Take 1 [facility] rine 10 mg 6-12 tablet by ity of tablet 00:00: mouth [place] 00 every 8 Medical (eight) Branch hours as needed for Muscle Spasms. cyclobenzap 2022-0 Yes [id number] 10mg Take 1 [facility] rine 10 mg 6-12 tablet by ity of tablet 00:00: mouth [place] 00 every 8 Medical (eight) Branch hours as needed for Muscle Spasms. cyclobenzap 2022-0 Yes [id number] 10mg Take 1 [facility] rine 10 mg 6-12 tablet by ity of tablet 00:00: mouth [place] 00 every 8 Medical (eight) Branch hours as needed for Muscle Spasms. cyclobenzap 2022-0 Yes [id number] 10mg Take 1 [facility] rine 10 mg 6-12 tablet by ity of tablet 00:00: mouth [place] 00 every 8 Medical (eight) Branch hours as needed for Muscle Spasms. cyclobenzap 2022-0 Yes [id number] 10mg Take 1 [facility] rine 10 mg 6-12 tablet by ity of tablet 00:00: mouth [place] 00 every 8 Medical (eight) Branch hours as needed for Muscle Spasms. cyclobenzap 2023-0 Yes [id number] 10mg Take 1 [facility] rine 10 mg 6-12 tablet by ity of tablet 00:00: mouth [place] 00 every 8 Medical (eight) Branch hours as needed for Muscle Spasms. cyclobenzap 2022-0 Yes [id number] 10mg Take 1 [facility] rine 10 mg 6-12 tablet by ity of tablet 00:00: mouth [place] 00 every 8 Medical (eight) Branch hours as needed for Muscle Spasms. cyclobenzap 2023-0 Yes [id number] 10mg Take 1 [facility] rine 10 mg 6-12 tablet by ity of tablet 00:00: mouth [place] 00 every 8 Medical (eight) Branch hours as needed for Muscle Spasms. HYDROcodone 2022-0 2022- No 1{tbl} 1 tablet, Univers -acetaminop 5-02 11-09 Oral, ity of hen (NORCO 15:15: 15:23 ONCE, 1 Yogesh as 5) 5-325 mg 00 :00 dose, On Medi jono tablet 1 Fri10/15/22 Bran h tablet at 1015, GM HYDROcodone 2022-2022- No 4647 .5{tbl} Take 0.5-1 [facility] -acetaminop 5-09 05-17 tablets by i ty of hen (NORCO) 00:00: 04:59 [place] 10-325 mg 00 :00 every 6 Medical tablet (six) Branch hours as needed for Pain (scale 7-10) for up to 7 days. Indication s: acute pain dexamethaso 2022-0 2022- No [id number] 10mg Univers ne 4-25 -25 ity of (DECADRON) 17:45: 16:46 [place] injection 00 :00 Medical 10 mg Branch dexamethaso 2022-0 2022- No [id number] 10mg 10 mg, Univers ne 4-01 10-25 Intramuscu ity of (DECADRON) 17:45: 16:46 lar, ONCE, [place] injection 00 :00 1 dose, On Medi jono 10 mg e Branch 10/01/22 at 1245, Routine predniSONE 2022-2022- No Take 3 Univers 20 mg 4-25 05-17 tablets by ity of tablet 00:00: 04:59 mouth [place] 00 :00 daily for Medical 7 days, Branch THEN 2 tablets daily for 7 days, THEN 1 tablet daily for 7 days. predniSONE 2022-0 2022- No Take 3 Univers 20 mg 4-25 05-17 tablets by ity of tablet 00:00: 04:59 mouth [place] 00 :00 daily for Medical 7 days, Branch THEN 2 tablets daily for 7 days, THEN 1 tablet daily for 7 days. hydrocortis 2022-2022- No Apply to Univers one 2.5 % 4-25 05-06 area(s) 2 ity of cream 00:00: 04:59 (two) [place] 00 :00 times Medical daily for Branch 10 days. hydrOXYzine 2022-2022- No 50mg Take 1 [facility] 50 mg 4-25 05-03 tablet by ity of tablet 00:00: 04:59 mouth in [place] 00 :00 the Medical morning Branch and 1 tablet at noon and 1 tablet in the evening. Do all this for 7 days. triamcinolo 2022- No 40mg Univers ne -30 09-24 ity of acetonide 02:30: 01:30 [place] (KENALOG) 00 :00 Medical injection Branch 40 mg triamcinolo 2022- No 40mg 40 mg, Univers ne 09-30-24 Intramuscu ity of acetonide 02:30: 01:30 lar, ONCE, [place] (KENALOG) 00 :00 1 dose, On Medi jono injection Sun Branch 40 mg 09/29/22 at 2130, Routine triamcinolo 0 Yes Apply to [facility] ne 4-23 area(s) 2 ity of acetonide 00:00: (two) [place] 0.1 % 00 times Medical ointment daily. Branch hydrOXYzine Yes 25mg Take 1 [facility] 25 mg 4-23 tablet by ity of tablet 00:00: mouth [place] 00 every 6 Medical (six) Branch hours as needed for Itching. triamcinolo Yes Apply to [facility] ne 4-23 area(s) 2 ity of acetonide 00:00: (two) [place] 0.1 % 00 times Medical ointment daily. Branch triamcinolo 2023-0 Yes Apply to [facility] ne 4-23 area(s) 2 ity of acetonide 00:00: (two) [place] 0.1 % 00 times Medical ointment daily. Branch triamcinolo 3-0 Yes Apply to [facility] ne 4-23 area(s) 2 ity of acetonide 00:00: (two) [place] 0.1 % 00 times Medical ointment daily. Branch triamcinolo 3-0 Yes Apply to [facility] ne 4-23 area(s) 2 ity of acetonide 00:00: (two) [place] 0.1 % 00 times Medical ointment daily. Branch triamcinolo 3-0 Yes Apply to [place] [facility] 4-23 area(s) 2 ity of acetonide 00:00: (two) [place] 0.1 % 00 times Medical ointment daily. Branch triamcinolo 3-0 Yes Apply to [facility] ne 4-23 area(s) 2 ity of acetonide 00:00: (two) [place] 0.1 % 00 times Medical ointment daily. Branch triamcinolo 3-0 Yes Apply to [facility] ne 4-23 area(s) 2 ity of acetonide 00:00: (two) [place] 0.1 % 00 times Medical ointment daily. Branch triamcinolo 3-0 Yes Apply to [facility] ne 4-23 area(s) 2 ity of acetonide 00:00: (two) [place] 0.1 % 00 times Medical ointment daily. Branch triamcinolo 3-0 Yes Apply to [facility] ne 4-23 area(s) 2 ity of acetonide 00:00: (two) [place] 0.1 % 00 times Medical ointment daily. Branch triamcinolo 3-0 Yes Apply to [facility] ne 4-23 area(s) 2 ity of acetonide 00:00: (two) [place] 0.1 % 00 times Medical ointment daily. Branch triamcinolo 3-0 Yes Apply to [facility] ne 4-23 area(s) 2 ity of acetonide 00:00: (two) [place] 0.1 % 00 times Medical ointment daily. Branch triamcinolo 2022-0 Yes Apply to [facility] ne 4-23 area(s) 2 ity of acetonide 00:00: (two) [place] 0.1 % 00 times Medical ointment daily. Branch triamcinolo 2022-0 Yes Apply to [facility] ne 4-23 area(s) 2 ity of acetonide 00:00: (two) [place] 0.1 % 00 times Medical ointment daily. Branch predniSONE 2022-0 2022- No [id number] Take 5 Univers 10 mg 4-23 05-03 tablets by ity of tablet 00:00: 04:59 mouth [place] 00 :00 daily for Medical 3 days, Branch THEN 4 tablets daily for 3 days, THEN 2 tablets daily for 3 days. predniSONE 3-0 2022- No [id number] Take 5 Univers 10 mg 4-23 04-25 tablets by ity of tablet 00:00: 00:00 mouth [place] 00 :00 daily for Medical 3 days, Branch THEN 4 tablets daily for 3 days, THEN 2 tablets daily for 3 days. hydrOXYzine 3-0 2022- No [id number] 25mg Take 1 [facility] 25 mg 4-23 04-25 tablet by ity of tablet 00:00: 00:00 mouth [place] 00 :00 every 6 Medical (six) Branch hours as needed for Itching. MESALAMINE 2023-0 Yes 1000mg Take 1,000 Univers ORAL 1-26 mg by ity of 11:07: mouth [place] [address] (two) Medical times Branch daily. MESALAMINE 2023-0 Yes 1000mg Take 1,000 Univers ORAL 1-26 mg by ity of 11:07: mouth 2 [place] [address] (two) Medical times Branch daily. MESALAMINE 2023-0 Yes 1000mg Take 1,000 Univers ORAL 1-26 mg by ity of 11:07: mouth 2 [place] [address] (two) Medical times Branch daily. MESALAMINE 2023-0 Yes 1000mg Take 1,000 [facility] ORAL 1-26 mg by ity of 11:07: mouth 2 [place] [address] (two) Medical times Branch daily. MESALAMINE 2023-0 Yes 1000mg Take 1,000 [facility] ORAL 1-26 mg by ity of 11:07: mouth [address] [place] [address] (two) Medical times Branch daily. MESALAMINE 2023-0 Yes 1000mg Take 1,000 Univers ORAL 1-26 mg by ity of 11:07: mouth [address] [place] [address] (two) Medical times Branch daily. MESALAMINE 2023-0 Yes 1000mg Take 1,000 Univers ORAL 1-26 mg by ity of 11:07: mouth [address] [place] [address] (two) Medical times Branch daily. MESALAMINE 2023-0 Yes 1000mg Take 1,000 Univers ORAL 1-26 mg by ity of 11:07: mouth [address] [place] [address] (two) Medical times Branch daily. MESALAMINE 2023-0 Yes 1000mg Take 1,000 Univers ORAL 1-26 mg by ity of 11:07: mouth [address] [place] [address] (two) Medical times Branch daily. MESALAMINE 2023-0 Yes 1000mg Take 1,000 Univers ORAL 1-26 mg by ity of 11:07: mouth [address] [place] [address] (two) Medical times Branch daily. MESALAMINE 2023-0 Yes 1000mg Take 1,000 Univers ORAL 1-26 mg by ity of 11:07: mouth [address] [place] [address] (two) Medical times Branch daily. MESALAMINE 2023-0 Yes 1000mg Take 1,000 [facility] ORAL 1-26 mg by ity of 11:07: mouth [address] [place] [address] (two) Medical times Branch daily. MESALAMINE 2023-0 Yes 1000mg Take 1,000 Univers ORAL 1-26 mg by ity of 11:07: [place] [address] (two) Medical times Branch daily. MESALAMINE 2023-0 Yes 1000mg Take 1,000 Univers ORAL 1-26 mg by ity of 11:07: mouth [address] [place] [address] (two) Medical times Branch daily. MESALAMINE 2023-0 Yes 1000mg Take 1,000 [facility] ORAL 1-26 mg by ity of 11:07: mouth [address] [place] [address] (two) Medical times Branch daily. benzonatate 2023-0 Yes [id number] 100mg Take 1 [facility] 100 mg 1-26 capsule by ity of capsule 00:00: mouth [place] 00 every 8 Medical (eight) Branch hours as needed for Cough. benzonatate 2023-0 Yes [id number] 100mg Take 1 [facility] 100 mg 1-26 capsule by ity of capsule 00:00: mouth [place] 00 every 8 Medical (eight) Branch hours as needed for Cough. benzonatate 2023-0 Yes [id number] 100mg Take 1 [facility] 100 mg 1-26 capsule by ity of capsule 00:00: mouth [place] 00 every 8 Medical (eight) Branch hours as needed for Cough. benzonatate 2023-0 Yes [id number] 100mg Take 1 [facility] 100 mg 1-26 capsule by ity of capsule 00:00: mouth [place] 00 every 8 Medical (eight) Branch hours as needed for Cough. benzonatate 2023-0 Yes [id number] 100mg Take 1 [facility] 100 mg 1-26 capsule by ity of capsule 00:00: mouth [place] 00 every 8 Medical (eight) Branch hours as needed for Cough. benzonatate 2023-0 Yes [id number] 100mg Take 1 [facility] 100 mg 1-26 capsule by ity of capsule 00:00: mouth [place] 00 every 8 Medical (eight) Branch hours as needed for Cough. benzonatate 2023-0 Yes [id number] 100mg Take 1 [facility] 100 mg 1-26 capsule by ity of capsule 00:00: mouth [place] 00 every 8 Medical (eight) Branch hours as needed for Cough. benzonatate 2023-0 Yes [id number] 100mg Take 1 [facility] 100 mg 1-26 capsule by ity of capsule 00:00: mouth [place] 00 every 8 Medical (eight) Branch hours as needed for Cough. benzonatate 2023-0 Yes [id number] 100mg Take 1 [facility] 100 mg 1-26 capsule by ity of capsule 00:00: mouth [place] 00 every 8 Medical (eight) Branch hours as needed for Cough. benzonatate 2023-0 Yes [id number] 100mg Take 1 [facility] 100 mg 1-26 capsule by ity of capsule 00:00: mouth [place] 00 every 8 Medical (eight) Branch hours as needed for Cough. benzonatate 2023-0 Yes [id number] 100mg Take 1 [facility] 100 mg 1-26 capsule by ity of capsule 00:00: mouth [place] 00 every 8 Medical (eight) Branch hours as needed for Cough. benzonatate 2023-0 Yes [id number] 100mg Take 1 [facility] 100 mg 1-26 capsule by ity of capsule 00:00: mouth [place] 00 every 8 Medical (eight) Branch hours as needed for Cough. benzonatate 2023-0 Yes [id number] 100mg Take 1 [facility] 100 mg 1-26 capsule by ity of capsule 00:00: mouth [place] 00 every 8 Medical (eight) Branch hours as needed for Cough. benzonatate 0 Yes [id number] 100mg Take 1 [facility] 100 mg 1-26 capsule by ity of capsule 00:00: mouth [place] 00 every 8 Medical (eight) Branch hours as needed for Cough. benzonatate 2022-0 Yes [id number] 100mg Take 1 [facility] 100 mg 1-26 capsule by ity of capsule 00:00: mouth [place] 00 every 8 Medical (eight) Branch hours as needed for Cough. Methylpredn 2022-0 2022- No [id number] 4mg Take 1 [facility] isolone 4 1-26 - tablet by ity of mg tablet 00:00: 05:59 mouth [place] 00 :00 every 12 Medical (twelve) Branch hours for 5 days. albuterol 2021-06 Yes [id number] 2{puff} Inhale 2 Univers 90 1-29 Puffs ity of mcg/actuati 00:00: every 6 Yogesh as on inhaler 00 (six) Medical hours as Branch needed for Wheezing or Shortness of Breath. albuterol 2021-06 Yes [id number] 2{puff} Inhale 2 Univers 90 1-29 Puffs ity of mcg/actuati 00:00: every 6 Yogesh as on inhaler 00 (six) Medical hours as Branch needed for Wheezing or Shortness of Breath. albuterol 2021-06 Yes [id number] 2{puff} Inhale 2 Univers 90 1-29 Puffs ity of mcg/actuati 00:00: every 6 Yogesh as on inhaler 00 (six) Medical hours as Branch needed for Wheezing or Shortness of Breath. albuterol 2021-06 Yes [id number] 2{puff} Inhale 2 Univers 90 1-29 Puffs ity of mcg/actuati 00:00: every 6 Yogesh as on inhaler 00 (six) Medical hours as Branch needed for Wheezing or Shortness of Breath. albuterol 2021-06 Yes [id number] 2{puff} Inhale 2 Univers 90 1-29 Puffs ity of mcg/actuati 00:00: every 6 Y[place]esh as on inhaler 00 (six) Medical hours as Branch needed for Wheezing or Shortness of Breath. albuterol 2021-06 Yes [id number] 2{puff} Inhale 2 Univers 90 1-29 Puffs ity of mcg/actuati 00:00: every 6 Yogesh as on inhaler 00 (six) Medical hours as Branch needed for Wheezing or Shortness of Breath. albuterol 2021-06 Yes [id number] 2{puff} Inhale 2 Univers 90 1-29 Puffs ity of mcg/actuati 00:00: every 6 Yogesh as on inhaler 00 (six) Medical hours as Branch needed for Wheezing or Shortness of Breath. albuterol 2021-06 Yes [id number] 2{puff} Inhale 2 Univers 90 1-29 Puffs ity of mcg/actuati 00:00: every 6 Yogesh as on inhaler 00 (six) Medical hours as Branch needed for Wheezing or Shortness of Breath. albuterol 2021-06 Yes [id number] 2{puff} Inhale 2 Univers 90 1-29 Puffs ity of mcg/actuati 00:00: every 6 Yogesh as on inhaler 00 (six) Medical hours as Branch needed for Wheezing or Shortness of Breath. albuterol 2021-06 Yes [id number] 2{puff} Inhale 2 Univers 90 1-29 Puffs ity of mcg/actuati 00:00: every 6 Yogesh as on inhaler 00 (six) Medical hours as Branch needed for Wheezing or Shortness of Breath. albuterol 2021-06 Yes [id number] 2{puff} Inhale 2 Univers 90 1-29 Puffs ity of mcg/actuati 00:00: every 6 Yogesh as on inhaler 00 (six) Medical hours as Branch needed for Wheezing or Shortness of Breath. albuterol 2021-06 Yes [id number] 2{puff} Inhale 2 Univers 90 1-29 Puffs ity of mcg/actuati 00:00: every 6 Y[place]esh as on inhaler 00 (six) Medical hours as Branch needed for Wheezing or Shortness of Breath. albuterol 2021-06 Yes [id number] 2{puff} Inhale 2 Univers 90 1-29 Puffs ity of mcg/actuati 00:00: every 6 Yogesh as on inhaler 00 (six) Medical hours as Branch needed for Wheezing or Shortness of Breath. albuterol 2021-06 Yes [id number] 2{puff} Inhale 2 Univers 90 1-29 Puffs ity of mcg/actuati 00:00: every 6 Yogesh as on inhaler 00 (six) Medical hours as Branch needed for Wheezing or Shortness of Breath. albuterol 2021-06 Yes [id number] 2{puff} Inhale 2 Univers 90 1-29 Puffs ity of mcg/actuati 00:00: every 6 Yogesh as on inhaler 00 (six) Medical hours as Branch needed for Wheezing or Shortness of Breath. albuterol 2021-06 Yes [id number] 2{puff} Inhale 2 Univers 90 1-29 Puffs ity of mcg/actuati 00:00: every 6 Y[place]esh as on inhaler 00 (six) Medical hours as Branch needed for Wheezing or Shortness of Breath. albuterol 2021-06 Yes [id number] 2{puff} Inhale 2 Univers 90 1-29 Puffs ity of mcg/actuati 00:00: every 6 Y[place]esh as on inhaler 00 (six) Medical hours as Branch needed for Wheezing or Shortness of Breath. albuterol 2021-06 Yes [id number] 2{puff} Inhale 2 Univers 90 1-29 Puffs ity of mcg/actuati 00:00: every 6 Yogesh as on inhaler 00 (six) Medical hours as Branch needed for Wheezing or Shortness of Breath. lisinopril- Yes 1{tbl} QD Take [address] hydroCHLORO 7-12 tablet by [place] [facility] thiazide 17:34: mouth Medical (PRINZIDE,Z 56 daily. [facility] 20-25 mg per tablet Yes 1{tbl} QD Take 1 [facility] tablet by [facility] w/calcium-i 17:34: mouth Medic al beatris-folate 56 daily. Velpen ( PLUS) 27 mg iron- 1 mg Tab lisinopril- Yes 1{tbl} QD Take [address] hydroCHLORO 7-12 tablet by [place] thiazide 17:34: mouth Medical (PRINZIDE,Z 56 daily. [facility]) 20-25 mg per tablet Yes 1{tbl} QD Take 1 [facility]-12 [facility] by [facility] w/calcium-i 17:34: mouth Medic al beatris-folate 56 daily. Velpen ( PLUS) 27 mg iron- 1 mg Tab lisinopril- 2021-0 Yes 1{tbl} QD Take [address] hydroCHLORO 7-12 tablet by [place] thiazide 17:34: mouth Medical (PRINZIDE,Z 56 daily. [facility] 20-25 mg per tablet 2021-0 Yes 1{tbl} QD Take 1 [facility]12 [facility] by [facility] w/calcium-i 17:34: mouth Medic al beatris-folate 56 daily. Velpen ( PLUS) 27 mg iron- 1 mg Tab lisinopril- 2021-0 Yes 1{tbl} QD Take [address] hydroCHLORO 7-12 tablet by [place] thiazide 17:34: mouth Medical (PRINZIDE,Z 56 daily. [facility] 20-25 mg per tablet 2021-0 Yes 1{tbl} QD Take 1 [facility] 7-12 tablet by [facility] w/calcium-i 17:34: mouth Medic al beatris-folate 56 daily. Velpen ( PLUS) 27 mg iron- 1 mg Tab pregabalin 2021-0 2023- No 150mg Q.5D Take [address] [facility] [address] (LYRICA) -05 15-12 capsule [facility] 150 MG 00:00: 23:59 (150 mg Medical capsule 00 :00 total) by Center mouth 2 (two) times daily. Max Daily Amount: 300 mg pregabalin 2022-0 2023- No 150mg Q.5D Take [address] [facility] (LYRICA) -05 15-12 capsule [facility] 150 MG 00:00: 23:59 (150 [...] Amount: 3 tablets cyclobenzap 2021- No 10mg Q.[id number] Take [address] [facility] rine 12-18 [id number] tablet (10 Audrey kes (FLEXERIL) 00:00: 23:59 [...] Amount: 3 tablets cyclobenzap 2021- No 10mg Q.[id number] Take [address] [facility] rine 12-18 [id number] tablet (10 Audrey kes (FLEXERIL) 00:00: 23:59 [...] Amount: 3 tablets cyclobenzap 2021- No 10mg Q.[id number] Take [address] [facility] rine 7-05 15- [id number] tablet (10 Audrey kes (FLEXERIL) 00:00: 23:59 3D mg total) M edical 10 MG 00 :00 by mouth 3 Center tablet (three) times daily for 10 days. oxyCODONE-a 2021- No 1{tbl} Take [address] cetaminophe 7-12-28 tablet by Audrey kes n 00:00: 23:59 mouth Medical (PERCOCET) 00 :00 every 8 Center 10-325 mg (eight) per tablet hours as needed for up to 10 days. Max Daily Amount: 3 tablets cyclobenzap 2021- No 10mg Q.58732204 Take [address] [facility] rine 7-05 15- [id number] tablet (10 Audrey kes (FLEXERIL) 00:00: 23:59 [...] Amount: 3 tablets cyclobenzap 2021- No 10mg Q.[id number] Take [address] [facility] rine -05 15- [id number] tablet (10 Audrey kes (FLEXERIL) 00:00: 23:59 3D mg total) M edical 10 MG 00 :00 by mouth 3 Center tablet (three) times daily for 10 days. oxyCODONE-a 2021- No 1{tbl} Take [address] cetaminophe 7-05 15- tablet by Audrey kes n 00:00: 23:59 mouth Medical (PERCOCET) 00 :00 every 8 Center 10-325 mg (eight) per tablet hours as needed for up to 10 days. Max Daily Amount: 3 tablets cyclobenzap 2021- No 10mg Q.[id number] Take [address] [facility] rine 7-12 -22 [id number] tablet (10 Audrey kes (FLEXERIL) 00:00: 23:59 [...] Amount: 3 tablets cyclobenzap 2021- No 10mg Q.[id number] Take [address] [facility] rine 12-18 [id number] tablet (10 Audrey kes (FLEXERIL) 00:00: 23:59 [...] Center packet daily for 3 days. polyethylen 2021-2021- No 17g Q.5D Take [...] Tue Branch 11/06/21 at 1215, GM maalox:diph 2021- No 15mL 15 mL, Uni vers enhydrAMINE 11-06 Oral, ity of :lidocaine 17:15: 16:25 ONCE, 1 [place] as 2 % viscous 00 :00 dose, On Medi jono 1:1:1 Tue Branch ([facility] 11/06[facility]21 at [facility]) 1215, GM oral suspension 15 mL morpHINE [...] 11/06/21 at 1130, GM iopamidol 2021- No [id number] 50mL 50 mL, U nivers (ISOVUE 11-06 Intravenou ity o f 370-500 mL) 15:44: 15:45 s, ONCE, 1 [place] injection 00 :00 dose, On Medica l 50 mL Tue Branch 11/06/21 at 1100, Routine dicyclomine Yes [id number] 20mg Take 1 [facility] 20 mg - tablet by [facility] of tablet 00:00: mouth 4 [place] 00 (four) Medical times Branch daily. metoclopram Yes [id number] 10mg Take 1 [facility] lilliam HCl 10 - tablet by ity of mg tablet 00:00: mouth [place] 00 every 6 Medical (six) Branch hours. pantoprazol 2-0 Yes [id number] 40mg Take 1 [facility] e 40 mg EC 5-31 tablet by ity of tablet 00:00: mouth [place] 00 daily. Medical Branch traMADoL 50 2021-0 Yes [id number] 50mg Take 1 [facility] ers mg tablet 5-31 tablet by ity o f 00:00: mouth [place] 00 every 6 Medical (six) Branch hours as needed for Pain (scale 4-6). Indication s: acute pain dicyclomine 2-0 Yes [id number] 20mg Take 1 [facility] 20 mg 5-31 tablet by ity of tablet 00:00: mouth 4 [place] 00 (four) Medical times Branch daily. metoclopram 2-0 Yes [id number] 10mg Take 1 [facility] lilliam HCl 10 5-31 tablet by ity of mg tablet 00:00: mouth [place] 00 every 6 Medical (six) Branch hours. pantoprazol 2021-0 Yes [id number] 40mg Take 1 [facility] e 40 mg EC 5-31 tablet by ity of tablet 00:00: mouth [place] 00 daily. Medical Branch traMADoL 50 2021-0 Yes [id number] 50mg Take 1 [facility] mg tablet 5-31 tablet by ity o f 00:00: mouth [place] 00 every 6 Medical (six) Branch hours as needed for Pain (scale 4-6). Indication s: acute pain dicyclomine 2-0 Yes [id number] 20mg Take 1 [facility] 20 mg 5-31 tablet by ity of tablet 00:00: mouth 4 [place] 00 (four) Medical times Branch daily. metoclopram 2-0 Yes [id number] 10mg Take 1 [facility] lilliam HCl 10 5-31 tablet by ity of mg tablet 00:00: mouth [place] 00 every 6 Medical (six) Branch hours. pantoprazol 2-0 Yes [id number] 40mg Take 1 [facility] e 40 mg EC 5-31 tablet by ity of tablet 00:00: mouth [place] 00 daily. Medical Branch traMADoL 50 2-0 Yes [id number] 50mg Take 1 [facility] mg tablet 5-31 tablet by ity o f 00:00: mouth [place] 00 every 6 Medical (six) Branch hours as needed for Pain (scale 4-6). Indication s: acute pain dicyclomine 2022-0 Yes [id number] 20mg Take 1 [facility] 20 mg 5-31 tablet by ity of tablet 00:00: mouth 4 [place] 00 (four) Medical times Branch daily. metoclopram 2-0 Yes [id number] 10mg Take 1 [facility] lilliam HCl 10 5-31 tablet by ity of mg tablet 00:00: mouth [place] 00 every 6 Medical (six) Branch hours. pantoprazol 2-0 Yes [id number] 40mg Take 1 [facility] e 40 mg EC 5-31 tablet by ity of tablet 00:00: mouth [place] 00 daily. Medical Branch traMADoL 50 2021-0 Yes [id number] 50mg Take 1 [facility] mg tablet 5-31 tablet by ity o f 00:00: mouth [place] 00 every 6 Medical (six) Branch hours as needed for Pain (scale 4-6). Indication s: acute pain dicyclomine 2-0 Yes [id number] 20mg Take 1 [facility] 20 mg 5-31 tablet by ity of tablet 00:00: mouth 4 [place] 00 (four) Medical times Branch daily. metoclopram 2-0 Yes [id number] 10mg Take 1 [facility] lilliam HCl 10 5-31 tablet by ity of mg tablet 00:00: mouth [place] 00 every 6 Medical (six) Branch hours. pantoprazol 2-0 Yes [id number] 40mg Take 1 [facility] e 40 mg EC 5-31 tablet by ity of tablet 00:00: mouth [place] 00 daily. Medical Branch traMADoL 50 2021-0 Yes [id number] 50mg Take 1 [facility] mg tablet 5-31 tablet by ity o f 00:00: mouth [place] 00 every 6 Medical (six) Branch hours as needed for Pain (scale 4-6). Indication s: acute pain dicyclomine 2-0 Yes [id number] 20mg Take 1 [facility] 20 mg 5-31 tablet by ity of tablet 00:00: mouth 4 [place] 00 (four) Medical times Branch daily. metoclopram 2-0 Yes [id number] 10mg Take 1 [facility] lilliam HCl 10 5-31 tablet by ity of mg tablet 00:00: mouth [place] 00 every 6 Medical (six) Branch hours. pantoprazol 2022-0 Yes [id number] 40mg Take 1 [facility] e 40 mg EC 5-31 tablet by ity of tablet 00:00: mouth [place] 00 daily. Medical Branch traMADoL 50 2022-0 Yes [id number] 50mg Take 1 [facility] mg tablet 5-31 tablet by ity o f 00:00: mouth [place] 00 every 6 Medical (six) Branch hours as needed for Pain (scale 4-6). Indication s: acute pain dicyclomine 2022-0 Yes [id number] 20mg Take 1 [facility] 20 mg 5-31 tablet by ity of tablet 00:00: mouth 4 [place] 00 (four) Medical times Branch daily. metoclopram 2-0 Yes [id number] 10mg Take 1 [facility] lilliam HCl 10 5-31 tablet by ity of mg tablet 00:00: mouth [place] 00 every 6 Medical (six) Branch hours. pantoprazol 2-0 Yes [id number] 40mg Take 1 [facility] e 40 mg EC 5-31 tablet by ity of tablet 00:00: mouth [place] 00 daily. Medical Branch traMADoL 50 2021-0 Yes [id number] 50mg Take 1 [facility] mg tablet 5-31 tablet by ity o f 00:00: mouth [place] 00 every 6 Medical (six) Branch hours as needed for Pain (scale 4-6). Indication s: acute pain dicyclomine 2-0 Yes [id number] 20mg Take 1 [facility] 20 mg 5-31 tablet by ity of tablet 00:00: mouth 4 [place] 00 (four) Medical times Branch daily. metoclopram 2-0 Yes [id number] 10mg Take 1 [facility] lilliam HCl 10 5-31 tablet by ity of mg tablet 00:00: mouth [place] 00 every 6 Medical (six) Branch hours. pantoprazol 2-0 Yes [id number] 40mg Take 1 [facility] e 40 mg EC 5-31 tablet by ity of tablet 00:00: mouth [place] 00 daily. Medical Branch traMADoL 50 2-0 Yes [id number] 50mg Take 1 [facility] mg tablet 5-31 tablet by ity o f 00:00: mouth [place] 00 every 6 Medical (six) Branch hours as needed for Pain (scale 4-6). Indication s: acute pain dicyclomine 2022-0 Yes [id number] 20mg Take 1 [facility] 20 mg 5-31 tablet by ity of tablet 00:00: mouth 4 [place] 00 (four) Medical times Branch daily. metoclopram 2022-0 Yes [id number] 10mg Take 1 [facility] lilliam HCl 10 5-31 tablet by ity of mg tablet 00:00: mouth [place] 00 every 6 Medical (six) Branch hours. pantoprazol 2-0 Yes [id number] 40mg Take 1 [facility] e 40 mg EC 5-31 tablet by ity of tablet 00:00: mouth [place] 00 daily. Medical Branch traMADoL 50 2021-0 Yes [id number] 50mg Take 1 [facility] mg tablet 5-31 tablet by ity o f 00:00: mouth [place] 00 every 6 Medical (six) Branch hours as needed for Pain (scale 4-6). Indication s: acute pain dicyclomine 2-0 Yes [id number] 20mg Take 1 [facility] 20 mg 5-31 tablet by ity of tablet 00:00: mouth 4 [place] 00 (four) Medical times Branch daily. metoclopram 2021-0 Yes [id number] 10mg Take 1 [facility] lilliam HCl 10 5-31 tablet by ity of mg tablet 00:00: mouth [place] 00 every 6 Medical (six) Branch hours. pantoprazol 2021-0 Yes [id number] 40mg Take 1 [facility] e 40 mg EC 5-31 tablet by ity of tablet 00:00: mouth [place] 00 daily. Medical Branch traMADoL 50 2021-0 Yes [id number] 50mg Take 1 [facility] mg tablet 5-31 tablet by ity o f 00:00: mouth [place] 00 every 6 Medical (six) Branch hours as needed for Pain (scale 4-6). Indication s: acute pain dicyclomine 2-0 Yes [id number] 20mg Take 1 [facility] 20 mg 5-31 tablet by ity of tablet 00:00: mouth 4 [place] 00 (four) Medical times Branch daily. metoclopram 2-0 Yes [id number] 10mg Take 1 [facility] lilliam HCl 10 5-31 tablet by ity of mg tablet 00:00: mouth [place] 00 every 6 Medical (six) Branch hours. pantoprazol 2-0 Yes [id number] 40mg Take 1 [facility] e 40 mg EC 5-31 tablet by ity of tablet 00:00: mouth [place] 00 daily. Medical Branch traMADoL 50 2-0 Yes [id number] 50mg Take 1 [facility] mg tablet 5-31 tablet by ity o f 00:00: mouth [place] 00 every 6 Medical (six) Branch hours as needed for Pain (scale 4-6). Indication s: acute pain dicyclomine 2-0 Yes [id number] 20mg Take 1 [facility] 20 mg 5-31 tablet by ity of tablet 00:00: mouth 4 [place] 00 (four) Medical times Branch daily. metoclopram 2-0 Yes [id number] 10mg Take 1 [facility] lilliam HCl 10 5-31 tablet by ity of mg tablet 00:00: mouth [place] 00 every 6 Medical (six) Branch hours. pantoprazol 2-0 Yes [id number] 40mg Take 1 [facility] e 40 mg EC 5-31 tablet by ity of tablet 00:00: mouth [place] 00 daily. Medical Branch traMADoL 50 2-0 Yes [id number] 50mg Take 1 [facility] mg tablet 5-31 tablet by ity o f 00:00: mouth [place] 00 every 6 Medical (six) Branch hours as needed for Pain (scale 4-6). Indication s: acute pain dicyclomine 2-0 Yes [id number] 20mg Take 1 [facility] 20 mg 5-31 tablet by ity of tablet 00:00: mouth 4 [place] 00 (four) Medical times Branch daily. metoclopram 2-0 Yes [id number] 10mg Take 1 [facility] lilliam HCl 10 5-31 tablet by ity of mg tablet 00:00: mouth [place] 00 every 6 Medical (six) Branch hours. pantoprazol 2-0 Yes [id number] 40mg Take 1 [facility] e 40 mg EC 5-31 tablet by ity of tablet 00:00: mouth [place] 00 daily. Medical Branch traMADoL 50 2021-0 Yes [id number] 50mg Take 1 [facility] mg tablet 5-31 tablet by ity o f 00:00: mouth [place] 00 every 6 Medical (six) Branch hours as needed for Pain (scale 4-6). Indication s: acute pain dicyclomine 2-0 Yes [id number] 20mg Take 1 [facility] 20 mg 5-31 tablet by ity of tablet 00:00: mouth 4 [place] 00 (four) Medical times Branch daily. metoclopram 2-0 Yes [id number] 10mg Take 1 [facility] lilliam HCl 10 5-31 tablet by ity of mg tablet 00:00: mouth [place] 00 every 6 Medical (six) Branch hours. pantoprazol 2022-0 Yes [id number] 40mg Take 1 [facility] e 40 mg EC 5-31 tablet by ity of tablet 00:00: mouth [place] 00 daily. Medical Branch traMADoL 50 2-0 Yes [id number] 50mg Take 1 [facility] mg tablet 5-31 tablet by ity o f 00:00: mouth [place] 00 every 6 Medical (six) Branch hours as needed for Pain (scale 4-6). Indication s: acute pain dicyclomine 2022-0 Yes [id number] 20mg Take 1 [facility] 20 mg 5-31 tablet by ity of tablet 00:00: mouth 4 [place] 00 (four) Medical times Branch daily. metoclopram 2022-0 Yes [id number] 10mg Take 1 [facility] lilliam HCl 10 5-31 tablet by ity of mg tablet 00:00: mouth [place] 00 every 6 Medical (six) Branch hours. pantoprazol 2-0 Yes [id number] 40mg Take 1 [facility] e 40 mg EC 5-31 tablet by ity of tablet 00:00: mouth [place] 00 daily. Medical Branch traMADoL 50 2021-0 Yes [id number] 50mg Take 1 [facility] mg tablet 5-31 tablet by ity o f 00:00: mouth [place] 00 every 6 Medical (six) Branch hours as needed for Pain (scale 4-6). Indication s: acute pain dicyclomine 2-0 Yes [id number] 20mg Take 1 [facility] 20 mg 5-31 tablet by ity of tablet 00:00: mouth 4 [place] 00 (four) Medical times Branch daily. metoclopram 2-0 Yes [id number] 10mg Take 1 [facility] lilliam HCl 10 5-31 tablet by ity of mg tablet 00:00: mouth [place] 00 every 6 Medical (six) Branch hours. pantoprazol 2-0 Yes [id number] 40mg Take 1 [facility] e 40 mg EC 5-31 tablet by ity of tablet 00:00: mouth [place] 00 daily. Medical Branch traMADoL 50 2-0 Yes [id number] 50mg Take 1 [facility] mg tablet 5-31 tablet by ity o f 00:00: mouth [place] 00 every 6 Medical (six) Branch hours as needed for Pain (scale 4-6). Indication s: acute pain dicyclomine 2022-0 Yes [id number] 20mg Take 1 [facility] 20 mg 5-31 tablet by ity of tablet 00:00: mouth 4 [place] 00 (four) Medical times Branch daily. metoclopram 2022-0 Yes [id number] 10mg Take 1 [facility] lilliam HCl 10 5-31 tablet by ity of mg tablet 00:00: mouth [place] 00 every 6 Medical (six) Branch hours. pantoprazol 2021-0 Yes [id number] 40mg Take 1 [facility] e 40 mg EC 5-31 tablet by ity of tablet 00:00: mouth [place] 00 daily. Medical Branch traMADoL 50 2021-0 Yes [id number] 50mg Take 1 [facility] mg tablet 5-31 tablet by ity o f 00:00: mouth [place] 00 every 6 Medical (six) Branch hours as needed for Pain (scale 4-6). Indication s: acute pain dicyclomine 2021-0 Yes [id number] 20mg Take 1 [facility] 20 mg 5-31 tablet by ity of tablet 00:00: mouth 4 [place] 00 (four) Medical times Branch daily. metoclopram 2021-0 Yes [id number] 10mg Take 1 [facility] lilliam HCl 10 5-31 tablet by ity of mg tablet 00:00: mouth [place] 00 every 6 Medical (six) Branch hours. pantoprazol 2021-0 Yes [id number] 40mg Take 1 [facility] e 40 mg EC 5-31 tablet by ity of tablet 00:00: mouth [place] 00 daily. Medical Branch traMADoL 50 2021-0 Yes [id number] 50mg Take 1 [facility] mg tablet 5-31 tablet by ity o f 00:00: mouth [place] 00 every 6 Medical (six) Branch hours as needed for Pain (scale 4-6). Indication s: acute pain dicyclomine 2021-0 Yes [id number] 20mg Take 1 [facility] 20 mg 5-31 tablet by ity of tablet 00:00: mouth 4 00 (four) Medical times Branch daily. metoclopram 2021-0 Yes [id number] 10mg Take 1 [facility] lilliam HCl 10 5-31 tablet by ity of mg tablet 00:00: mouth [place] 00 every 6 Medical (six) Branch hours. pantoprazol 2021-0 Yes [id number] 40mg Take 1 [facility] e 40 mg EC 5-31 tablet by ity of tablet 00:00: mouth [place] 00 daily. Medical Branch traMADoL 50 2021-0 Yes [id number] 50mg Take 1 [facility] mg tablet 5-31 tablet by ity o f 00:00: mouth [place] 00 every 6 Medical (six) Branch hours as needed for Pain (scale 4-6). Indication s: acute pain amoxicillin 2021-0 2- No [id number] 875mg Take 1 [facility] 875 mg 5-10 [...] days. Indication s: cough predniSONE 2021- No [id number] 40mg Take 2 [facility] 20 mg 5-10 05-16 tablets by ity of tablet 00:00: 04:59 mouth [place] 00 :00 daily for Medical 5 days. Branch dicyclomine 2020-06 Yes [id number] 20mg Take 1 [facility] 20 mg 2-26 tablet by ity of tablet 00:00: mouth 4 (four) Medical times Branch daily. bromphenira 2020-06 Yes [id number] 5mL Take 5 mL [facility] mine-pseudo 2-26 by mouth 3 it y of ephedrine-D 00:00: (three) [place] as M (BROMFED 00 times Medical DM) 2-30-10 daily as Bran ch mg/5 mL needed for syrup Cough. dicyclomine 2020-06 Yes [id number] 20mg Take 1 [facility] 20 mg 2-26 tablet by ity of tablet 00:00: mouth 4 (four) Medical times Branch daily. bromphenira 2020-06 Yes [id number] 5mL Take 5 mL [facility] mine-pseudo 2-26 by mouth 3 it y of ephedrine-D 00:00: (three) [place] as M (BROMFED times Medical DM) 2-30-10 daily as Bran ch mg/5 mL needed for syrup Cough. dicyclomine 2020-06 Yes [id number] 20mg Take 1 [facility] 20 mg 2-26 tablet by ity of tablet 00:00: mouth 4 (four) Medical times Branch daily. bromphenira 2020-06 Yes [id number] 5mL Take 5 mL [facility] mine-pseudo 2-26 by mouth 3 it y of ephedrine-D 00:00: (three) [place] as M (BROMF[facility] 00 times Medical DM) 2-30-10 daily as Bran ch mg/5 mL needed for syrup Cough. dicyclomine 2020-06 Yes [id number] 20mg Take 1 [facility] 20 mg 2-26 tablet by ity of tablet 00:00: mouth 4 [place] [address] ([facility]) Medical times [place] daily. bromphenira 2020-06 Yes [id number] 5mL Take 5 mL [facility] mine-pseudo 2-26 by mouth 3 it y of ephedrine-D 00:00: (three) [place] as M (BROMFED times Medical DM) 2-30-10 daily as Bran ch mg/5 mL needed for syrup Cough. dicyclomine 2020-06 Yes [id number] 20mg Take 1 [facility] 20 mg 2-26 tablet by ity of tablet 00:00: mouth 4 [place] ([facility]) Medical times [place] daily. bromphenira 2020-06 Yes [id number] 5mL Take 5 mL [facility] mine-pseudo 2-26 by mouth 3 it y of ephedrine-D 00:00: (three) [place] as M (BROMFED times Medical DM) 2-30-10 daily as Bran ch mg/5 mL needed for syrup Cough. dicyclomine 2020-06 Yes [id number] 20mg Take 1 [facility] 20 mg 2-26 tablet by ity of tablet 00:00: mouth 4 [place] [address] ([facility]) Medical times [place] daily. bromphenira 2020-06 Yes [id number] 5mL Take 5 mL [facility] mine-pseudo 2-26 by mouth 3 it y of ephedrine-D 00:00: (three) [place] M (BROMFED times Medical DM) 2-30-10 daily as Bran ch mg/5 mL needed for syrup Cough. dicyclomine 2020-06 Yes [id number] 20mg Take 1 [facility] 20 mg 2-26 tablet by ity of tablet 00:00: mouth 4 [place] [address] ([facility]) Medical times Branch daily. bromphenira 2020-06 Yes [id number] 5mL Take 5 mL [facility] mine-pseudo 2-26 by mouth 3 it y of ephedrine-D 00:00: (three) [place] as M (BROMFED 00 times Medical DM) 2-30-10 daily as Bran ch mg/5 mL needed for syrup Cough. dicyclomine 2020-06 Yes [id number] 20mg Take 1 [facility] 20 mg 2-26 tablet by ity of tablet 00:00: mouth 4 [place] [address] ([facility]) Medical times Branch daily. bromphenira 2020-06 Yes [id number] 5mL Take 5 mL [facility] mine-pseudo 2-26 by mouth 3 it y of ephedrine-D 00:00: (three) [place] as M (BROMFED times Medical DM) 2-30-10 daily as Bran ch mg/5 mL needed for syrup Cough. dicyclomine 2020-06 Yes [id number] 20mg Take 1 [facility] 20 mg 2-26 tablet by ity of tablet 00:00: mouth 4 [place] [address] ([facility]) Medical times Branch daily. bromphenira 2020-06 Yes [id number] 5mL Take 5 mL [facility] mine-pseudo 2-26 by mouth 3 it y of ephedrine-D 00:00: (three) [place] as M (BROMFED times Medical DM) 2-30-10 daily as Bran ch mg/5 mL needed for syrup Cough. dicyclomine 2020-06 Yes [id number] 20mg Take 1 [facility] 20 mg 2-26 tablet by ity of tablet 00:00: mouth [place] [address] ([facility]) Medical times [place] daily. bromphenira 2020-06 Yes [id number] 5mL Take 5 mL [facility] mine-pseudo 2-26 by mouth 3 it y of ephedrine-D 00:00: (three) [place] as M (BROMFED times Medical DM) 2-30-10 daily as Bran ch mg/5 mL needed for syrup Cough. dicyclomine 2020-06 Yes [id number] 20mg Take 1 [facility] 20 mg 2-26 tablet by ity of tablet 00:00: mouth [place] [address] ([facility]) Medical times Branch daily. bromphenira 2020-06 Yes [id number] 5mL Take 5 mL [facility] mine-pseudo 2-26 by mouth 3 it y of ephedrine-D 00:00: (three) [place] M (BROMFED times Medical DM) 2-30-10 daily as Bran ch mg/5 mL needed for syrup Cough. dicyclomine 2020-06 Yes [id number] 20mg Take 1 [facility] 20 mg 2-26 tablet by ity of tablet 00:00: mouth 4 [place] [address] ([facility]) Medical times Branch daily. bromphenira 2020-06 Yes [id number] 5mL Take 5 mL [facility] mine-pseudo 2-26 by mouth 3 it y of ephedrine-D 00:00: (three) [place] as M (BROMFED 00 times Medical DM) 2-30-10 daily as Bran ch mg/5 mL needed for syrup Cough. dicyclomine 2020-06 Yes [id number] 20mg Take 1 [facility] 20 mg 2-26 tablet by ity of tablet 00:00: mouth 4 ([facility]) Medical times Branch daily. bromphenira 2020-06 Yes [id number] 5mL Take 5 mL [facility] mine-pseudo 2-26 by mouth 3 it y of ephedrine-D 00:00: (three) [place] M (BROMFED 00 times Medical DM) 2-30-10 daily as Bran ch mg/5 mL needed for syrup Cough. dicyclomine 2020-06 Yes [id number] 20mg Take 1 [facility] 20 mg 2-26 tablet by ity of tablet 00:00: mouth 4 [place] ([facility]) Medical times [place] daily. bromphenira 2020-06 Yes [id number] 5mL Take 5 mL [facility] mine-pseudo 2-26 by mouth 3 it y of ephedrine-D 00:00: (three) [place] as M (BROMFED times Medical DM) 2-30-10 daily as Bran ch mg/5 mL needed for syrup Cough. dicyclomine 2020-06 Yes [id number] 20mg Take 1 [facility] 20 mg 2-26 tablet by ity of tablet 00:00: mouth 4 [place] ([facility]) Medical times [place] daily. bromphenira 2020-06 Yes [id number] 5mL Take 5 mL [facility] mine-pseudo 2-26 by mouth 3 it y of ephedrine-D 00:00: (three) [place] M (BROMFED times Medical DM) 2-30-10 daily as Bran ch mg/5 mL needed for syrup Cough. dicyclomine 2020-06 Yes [id number] 20mg Take 1 [facility] 20 mg 2-26 tablet by ity of tablet 00:00: mouth 4 ([facility]) Medical times Branch daily. bromphenira 2020-06 Yes [id number] 5mL Take 5 mL [facility] mine-pseudo 2-26 by mouth 3 it y of ephedrine-D 00:00: (three) [place] as M (BROMFED 00 times Medical DM) 2-30-10 daily as Bran ch mg/5 mL needed for syrup Cough. dicyclomine 2020-06 Yes [id number] 20mg Take 1 [facility] 20 mg 2-26 tablet by ity of tablet 00:00: mouth 4 ([facility]) Medical times Branch daily. bromphenira 2020-06 Yes [id number] 5mL Take 5 mL [facility] mine-pseudo 2-26 by mouth 3 it y of ephedrine-D 00:00: (three) [place] as M (BROMFED 00 times Medical DM) 2-30-10 daily as Bran ch mg/5 mL needed for syrup Cough. dicyclomine 2020-06 Yes [id number] 20mg Take 1 [facility] 20 mg 2-26 tablet by ity of tablet 00:00: mouth 4 ([facility]) Medical times Branch daily. bromphenira 2020-06 Yes [id number] 5mL Take 5 mL [facility] mine-pseudo 2-26 by mouth 3 it y of ephedrine-D 00:00: (three) [place] as M (BROMFED times Medical DM) 2-30-10 daily as Bran ch mg/5 mL needed for syrup Cough. dicyclomine 2020-06 Yes [id number] 20mg Take 1 [facility] 20 mg 2-26 tablet by ity of tablet 00:00: mouth [place] ([facility]) Medical times Branch daily. bromphenira 2020-06 Yes [id number] 5mL Take 5 mL [facility] mine-pseudo 2-26 by mouth 3 it y of ephedrine-D 00:00: (three) [place] M (BROMFED 00 times Medical DM) 2-30-10 daily as Bran ch mg/5 mL needed for syrup Cough. dicyclomine 2020-06 Yes [id number] 20mg Take 1 [facility] 20 mg 2-26 tablet by ity of tablet 00:00: mouth 4 [place] ([facility]) Medical times Branch daily. bromphenira 2020-06 Yes [id number] 5mL Take 5 mL [facility] mine-pseudo 2-26 by mouth 3 it y of ephedrine-D 00:00: (three) [place] as M (BROMFED 00 times Medical DM) 2-30-10 daily as Bran ch mg/5 mL needed for syrup Cough. dicyclomine 2020-06 Yes [id number] 20mg Take 1 [facility] 20 mg 2-26 tablet by ity of tablet 00:00: mouth 4 [place] [address] ([facility]) Medical times [place] daily. bromphenira 2020-06 Yes [id number] 5mL Take 5 mL [facility] mine-pseudo 2-26 by mouth 3 it y of ephedrine-D 00:00: (three) [facility] [facility] 2-30-10 daily as Bran ch mg/5 mL needed for syrup Cough. dicyclomine 2020-06 Yes [id number] 20mg Take 1 [facility] 20 mg 2-26 tablet by ity of tablet 00:00: mouth 4 [place] [address] ([facility]) Medical times Branch daily. bromphenira 2020-06 Yes [id number] 5mL Take 5 mL [facility] mine-pseudo 2-26 by mouth 3 it y of ephedrine-D 00:00: (three) [facility] [facility] 2-30-10 daily as Bran ch mg/5 mL needed for syrup Cough. dicyclomine 2020-06 Yes [id number] 20mg Take 1 [facility] 20 mg 2-26 tablet by ity of tablet 00:00: mouth 4 [place] [address] ([facility]) Medical times [place] daily. bromphenira 2020-06 Yes [id number] 5mL Take 5 mL [facility] mine-pseudo 2-26 by mouth 3 it y of ephedrine-D 00:00: (three) [place] [facility] 2-30-10 daily as Bran ch mg/5 mL needed for syrup Cough. bromphenira 2020-06 Yes [id number] 5mL Take 5 mL [facility] mine-pseudo 1-29 by mouth 4 it y of ephedrine-D 00:00: (four) [place] ([facility] times Medical DM) 2-30-10 daily as Bran ch mg/5 mL needed for syrup Congestion /Allergies . azelastine 2020-06 Yes [id number] 1{spray Use 1 [facility] 137 mcg 1-29 } [place] in ity of (0.1 %) 00:00: each [place] nasal spray 00 nostril 2 Med ical (two) Branch times daily. Use in each nostril as directed fluticasone 2020-06 Yes [id number] 1{spray Use 1 [facility] propionate 1-29 } [place] in ity o f 50 00:00: each [place] mcg/actuati 00 nostril Medic al on nasal daily. Branch spray guaiFENesin 2020-06 Yes [id number] 400mg Take 1 [facility] 400 mg 1-29 tablet by ity of tablet 00:00: mouth [place] 00 every 4 Medical (four) Branch hours as needed for Cough. benzonatate 2020-06 Yes [id number] 200mg Take 2 [facility] 100 mg 1-29 capsules ity of capsule 00:00: by mouth 2 [place] (two) Medical times Branch daily as needed for Cough. bromphenira 2020-06 Yes [id number] 5mL Take 5 mL [facility] mine-pseudo 1-29 by mouth 4 it y of ephedrine-D 00:00: (four) [place] ([facility] 00 times Medical DM) 2-30-10 daily as Bran ch mg/5 mL needed for syrup Congestion /Allergies . azelastine 2020-06 Yes [id number] 1{spray Use 1 [facility] 137 mcg 1-29 } [place] in ity of (0.1 %) 00:00: each [place] nasal spray 00 nostril 2 Med ical (two) Branch times daily. Use in each nostril as directed fluticasone 2020-06 Yes [id number] 1{spray Use 1 [facility] propionate 1-29 } [place] in ity o f 50 00:00: each [place] mcg/actuati 00 nostril Medic al on nasal daily. Branch spray guaiFENesin 2020-06 Yes [id number] 400mg Take 1 [facility] 400 mg 1-29 tablet by ity of tablet 00:00: mouth [place] 00 every 4 Medical (four) Branch hours as needed for Cough. benzonatate 2020-06 Yes [id number] 200mg Take 2 [facility] 100 mg 1-29 capsules ity of capsule 00:00: by mouth 2 [place] (two) Medical times Branch daily as needed for Cough. bromphenira 2020-06 Yes [id number] 5mL Take 5 mL [facility] mine-pseudo 1-29 by mouth 4 it y of ephedrine-D 00:00: (four) [place] ([facility] 00 times Medical DM) 2-30-10 daily as Bran ch mg/5 mL needed for syrup Congestion /Allergies . azelastine 2020-06 Yes [id number] 1{spray Use 1 [facility] 137 mcg 1-29 } [place] in ity of (0.1 %) 00:00: each [place] nasal spray 00 nostril 2 Med ical (two) Branch times daily. Use in each nostril as directed fluticasone 2020-06 Yes [id number] 1{spray Use 1 [facility] propionate 1-29 } [place] in ity o f 50 00:00: each [place] mcg/actuati 00 nostril Medic al on nasal daily. Branch spray guaiFENesin 2020-06 Yes [id number] 400mg Take 1 [facility] 400 mg 1-29 tablet by ity of tablet 00:00: mouth [place] 00 every 4 Medical (four) Branch hours as needed for Cough. benzonatate 2020-06 Yes [id number] 200mg Take 2 [facility] 100 mg 1-29 capsules ity of capsule 00:00: by mouth 2 [place] (two) Medical times Branch daily as needed for Cough. bromphenira 2020-06 Yes [id number] 5mL Take 5 mL [facility] mine-pseudo 1-29 by mouth 4 it y of ephedrine-D 00:00: (four) [place] ([facility] 00 times Medical DM) 2-30-10 daily as Bran ch mg/5 mL needed for syrup Congestion /Allergies . azelastine 2020-06 Yes [id number] 1{spray Use 1 [facility] 137 mcg 1-29 } [place] in ity of (0.1 %) 00:00: each [place] nasal spray 00 nostril 2 Med ical (two) Branch times daily. Use in each nostril as directed fluticasone 2020-06 Yes [id number] 1{spray Use 1 [facility] propionate 1-29 } [place] in ity o f 50 00:00: each [place] mcg/actuati 00 nostril Medic al on nasal daily. Branch spray guaiFENesin 2020-06 Yes [id number] 400mg Take 1 [facility] 400 mg 1-29 tablet by ity of tablet 00:00: mouth [place] 00 every 4 Medical (four) Branch hours as needed for Cough. benzonatate 2020-06 Yes [id number] 200mg Take 2 [facility] 100 mg 1-29 capsules [place] [place] capsule 00:00: [place] 2 [place] (two) [facility] times Branch daily as needed for Cough. bromphenira 2020-06 Yes [id number] 5mL Take 5 mL [facility] mine-pseudo 1-29 by mouth 4 it y of ephedrine-D 00:00: (four[place] (BROMFED 00 times Medical DM) 2-30-10 daily as [place] ch mg/5 mL needed for syrup Congestion /Allergies . azelastine 2020-06 Yes [id number] 1{spray Use 1 [facility] 137 mcg 1-29 } [place] in ity of (0.1 %) 00:00: each [place] nasal spray 00 nostril 2 Med ical (two) Branch times daily. Use in each nostril as directed fluticasone 2020-06 Yes [id number] 1{spray Use 1 [facility] propionate 1-29 } [place] in ity o f 50 00:00: each [place] mcg/actuati 00 nostril Medic al on nasal daily. Branch spray guaiFENesin 2020-06 Yes [id number] 400mg Take 1 [facility] 400 mg 1-29 tablet by ity of tablet 00:00: mouth [place] 00 every 4 Medical (four) Branch hours as needed for Cough. benzonatate 2020-06 Yes [id number] 200mg Take 2 [facility] 100 mg 1-29 capsules [facility] of capsule 00:00: by mouth 2 [place] (two) Medical times Branch daily as needed for Cough. bromphenira 2020-06 Yes [id number] 5mL Take 5 mL [facility] mine-pseudo 1-29 by mouth 4 it y of ephedrine-D 00:00: (four[place] (BROMFED 00 times Medical DM) 2-30-10 daily as [facility] ch mg/5 mL needed for syrup Congestion /Allergies . azelastine 2020-06 Yes [id number] 1{spray Use 1 [facility] 137 mcg 1-29 } [place] in ity of (0.1 %) 00:00: each [place] nasal spray 00 nostril 2 Med ical (two) Branch times daily. Use in each nostril as directed fluticasone 2020-06 Yes [id number] 1{spray Use 1 [facility] propionate 1-29 } [place] in ity o f 50 00:00: each [place] mcg/actuati 00 nostril Medic al on nasal daily. Branch spray guaiFENesin 2020-06 Yes [id number] 400mg Take 1 [facility] 400 mg 1-29 tablet by ity of tablet 00:00: mouth [place] 00 every 4 Medical (four) Branch hours as needed for Cough. benzonatate 2020-06 Yes [id number] 200mg Take 2 [facility] 100 mg 1-29 capsules [facility] of capsule 00:00: by mouth 2 [place] (two) Medical times Branch daily as needed for Cough. bromphenira 2020-06 Yes [id number] 5mL Take 5 mL [facility] mine-pseudo 1-29 by mouth 4 it y of ephedrine-D 00:00: (four[place] (BROMFED 00 times Medical DM) 2-30-10 daily as [facility] ch mg/5 mL needed for syrup Congestion /Allergies . azelastine 2020-06 Yes [id number] 1{spray Use 1 [facility] 137 mcg 1-29 } [place] in ity of (0.1 %) 00:00: each [place] nasal spray 00 nostril 2 Med ical (two) Branch times daily. Use in each nostril as directed fluticasone 2020-06 Yes [id number] 1{spray Use 1 [facility] propionate 1-29 } [place] in ity o f 50 00:00: each [place] mcg/actuati 00 nostril Medic al on nasal daily. Branch spray guaiFENesin 2020-06 Yes [id number] 400mg Take 1 [facility] 400 mg 1-29 tablet by ity of tablet 00:00: mouth [place] 00 every 4 Medical (four) Branch hours as needed for Cough. benzonatate 2020-06 Yes [id number] 200mg Take 2 [facility] 100 mg 1-29 capsules [facility] of capsule 00:00: by mouth 2 [place] (two) Medical times Branch daily as needed for Cough. bromphenira 2020-06 Yes [id number] 5mL Take 5 mL [facility] mine-pseudo 1-29 by mouth 4 it y of ephedrine-D 00:00: (four[place] (BROMFED 00 times Medical DM) 2-30-10 daily as [facility] ch mg/5 mL needed for syrup Congestion /Allergies . azelastine 2020-06 Yes [id number] 1{spray Use 1 [facility] 137 mcg 1-29 } [place] in ity of (0.1 %) 00:00: each [place] nasal spray 00 nostril 2 Med ical (two) Branch times daily. Use in each nostril as directed benzonatate 2020-06 Yes [id number] 200mg Take 2 [facility] 100 mg 1-29 capsules [facility] of capsule 00:00: by mouth 2 [place] (two) Medical times Branch daily as needed for Cough. bromphenira 2020-06 Yes [id number] 5mL Take 5 mL [facility] mine-pseudo 1-29 by mouth 4 it y of ephedrine-D 00:00: (four) [place] (BROMFED 00 times Medical DM) 2-30-10 daily as Bran ch mg/5 mL needed for syrup Congestion /Allergies . azelastine 2020-06 Yes [id number] 1{spray Use 1 [facility] 137 mcg 1-29 } [place] in ity of (0.1 %) 00:00: each [place] nasal spray 00 nostril 2 Med ical (two) Branch times daily. Use in each nostril as directed fluticasone 2020-06 Yes [id number] 1{spray Use 1 [facility] propionate 1-29 } [place] in ity o f 50 00:00: each [place] mcg/actuati 00 nostril Medic al on nasal daily. Branch spray guaiFENesin 2020-06 Yes [id number] 400mg Take 1 [facility] 400 mg 1-29 tablet by ity of tablet 00:00: mouth [place] 00 every 4 Medical (four) Branch hours as needed for Cough. fluticasone 2020-06 Yes [id number] 1{spray Use 1 [facility] propionate 1-29 } [place] in ity o f 50 00:00: each [place] mcg/actuati 00 nostril Medic al on nasal daily. Branch spray guaiFENesin 2020-06 Yes [id number] 400mg Take 1 [facility] 400 mg 1-29 tablet by ity of tablet 00:00: mouth [place] 00 every 4 Medical (four) Branch hours as needed for Cough. benzonatate 2020-06 Yes [id number] 200mg Take 2 [facility] 100 mg 1-29 capsules [facility] of capsule 00:00: by mouth 2 [place] 00 (two) Medical times Branch daily as needed for Cough. bromphenira 2020-06 Yes [id number] 5mL Take 5 mL [facility] mine-pseudo 1-29 by mouth 4 it y of ephedrine-D 00:00: (four) [place] (BROMFED 00 times Medical DM) 2-30-10 daily as Bran ch mg/5 mL needed for syrup Congestion /Allergies . azelastine 2020-06 Yes [id number] 1{spray Use 1 [facility] 137 mcg 1-29 } [place] in ity of (0.1 %) 00:00: each [place] nasal spray 00 nostril 2 Med ical (two) Branch times daily. Use in each nostril as directed fluticasone 2020-06 Yes [id number] 1{spray Use 1 [facility] propionate 1-29 } [place] in ity o f 50 00:00: each [place] mcg/actuati 00 nostril Medic al on nasal daily. Branch spray guaiFENesin 2020-06 Yes [id number] 400mg Take 1 [facility] 400 mg 1-29 tablet by ity of tablet 00:00: mouth [place] 00 every 4 Medical (four) Branch hours as needed for Cough. benzonatate 2020-06 Yes [id number] 200mg Take 2 [facility] 100 mg 1-29 capsules [facility] of capsule 00:00: by mouth 2 [place] 00 (two) Medical times Branch daily as needed for Cough. bromphenira 2020-06 Yes [id number] 5mL Take 5 mL [facility] mine-pseudo 1-29 by mouth 4 it y of ephedrine-D 00:00: (four) [place] (BROMFED 00 times Medical DM) 2-30-10 daily as Bran ch mg/5 mL needed for syrup Congestion /Allergies . azelastine 2020-06 Yes [id number] 1{spray Use 1 [facility] 137 mcg 1-29 } [place] in ity of (0.1 %) 00:00: each [place] nasal spray 00 nostril 2 Med ical (two) Branch times daily. Use in each nostril as directed fluticasone 2020-06 Yes [id number] 1{spray Use 1 [facility] propionate 1-29 } [place] in ity o f 50 00:00: each [place] mcg/actuati 00 nostril Medic al on nasal daily. Branch spray guaiFENesin 2020-06 Yes [id number] 400mg Take 1 [facility] 400 mg 1-29 tablet by ity of tablet 00:00: mouth [place] 00 every 4 Medical (four) Branch hours as needed for Cough. benzonatate 2020-06 Yes [id number] 200mg Take 2 [facility] 100 mg 1-29 capsules [facility] of capsule 00:00: by mouth 2 [place] 00 (two) Medical times Branch daily as needed for Cough. bromphenira 2020-06 Yes [id number] 5mL Take 5 mL [facility] mine-pseudo 1-29 by mouth 4 it y of ephedrine-D 00:00: (four) [place] (BROMFED 00 times Medical DM) 2-30-10 daily as Bran ch mg/5 mL needed for syrup Congestion /Allergies . azelastine 2020-06 Yes [id number] 1{spray Use 1 [facility] 137 mcg 1-29 } [place] in ity of (0.1 %) 00:00: each [place] nasal spray 00 nostril 2 Med ical (two) Branch times daily. Use in each nostril as directed fluticasone 2020-06 Yes [id number] 1{spray Use 1 [facility] propionate 1-29 } [place] in ity o f 50 00:00: each [place] mcg/actuati 00 nostril Medic al on nasal daily. Branch spray guaiFENesin 2020-06 Yes [id number] 400mg Take 1 [facility] 400 mg 1-29 tablet by ity of tablet 00:00: mouth [place] 00 every 4 Medical (four) Branch hours as needed for Cough. benzonatate 2020-06 Yes [id number] 200mg Take 2 [facility] 100 mg 1-29 capsules [facility] of capsule 00:00: by mouth 2 [place] 00 (two) Medical times Branch daily as needed for Cough. bromphenira 2020-06 Yes [id number] 5mL Take 5 mL [facility] mine-pseudo 1-29 by mouth 4 it y of ephedrine-D 00:00: (four) [place] (BROMFED 00 times Medical DM) 2-30-10 daily as Bran ch mg/5 mL needed for syrup Congestion /Allergies . azelastine 2020-06 Yes [id number] 1{spray Use 1 [facility] 137 mcg 1-29 } [place] in ity of (0.1 %) 00:00: each [place] nasal spray 00 nostril 2 Med ical (two) Branch times daily. Use in each nostril as directed fluticasone 2020-06 Yes [id number] 1{spray Use 1 [facility] propionate 1-29 } [place] in ity o f 50 00:00: each [place] mcg/actuati 00 nostril Medic al on nasal daily. Branch spray guaiFENesin 2020-06 Yes [id number] 400mg Take 1 [facility] 400 mg 1-29 tablet by ity of tablet 00:00: mouth [place] 00 every 4 Medical (four) Branch hours as needed for Cough. benzonatate 2020-06 Yes [id number] 200mg Take 2 [facility] 100 mg 1-29 capsules [facility] of capsule 00:00: by mouth 2 [place] 00 (two) Medical times Branch daily as needed for Cough. bromphenira 2020-06 Yes [id number] 5mL Take 5 mL [facility] mine-pseudo 1-29 by mouth 4 it y of ephedrine-D 00:00: (four) [place] (BROMFED 00 times Medical DM) 2-30-10 daily as Bran ch mg/5 mL needed for syrup Congestion /Allergies . azelastine 2020-06 Yes [id number] 1{spray Use 1 [facility] 137 mcg 1-29 } [place] in ity of (0.1 %) 00:00: each [place] nasal spray 00 nostril 2 Med ical (two) Branch times daily. Use in each nostril as directed fluticasone 2020-06 Yes [id number] 1{spray Use 1 [facility] propionate 1-29 } [place] in ity o f 50 00:00: each [place] mcg/actuati 00 nostril Medic al on nasal daily. Branch spray guaiFENesin 2020-06 Yes [id number] 400mg Take 1 [facility] 400 mg 1-29 tablet by ity of tablet 00:00: mouth [place] 00 every 4 Medical (four) Branch hours as needed for Cough. benzonatate 2020-06 Yes [id number] 200mg Take 2 [facility] 100 mg 1-29 capsules it[facility] of capsule 00:00: by mouth 2 [place] 00 (two) Medical times Branch daily as needed for Cough. bromphenira 2020-06 Yes [id number] 5mL Take 5 mL [facility] mine-pseudo 1-29 by mouth 4 it y of ephedrine-D 00:00: (four) [place] (BROMFED 00 times Medical DM) 2-30-10 daily as Bran ch mg/5 mL needed for syrup Congestion /Allergies . azelastine 2020-06 Yes [id number] 1{spray Use 1 [facility] 137 mcg 1-29 } [place] in ity of (0.1 %) 00:00: each [place] nasal spray 00 nostril 2 Med ical (two) Branch times daily. Use in each nostril as directed fluticasone 2020-06 Yes [id number] 1{spray Use 1 [facility] propionate 1-29 } [place] in ity o f 50 00:00: each [place] mcg/actuati 00 nostril Medic al on nasal daily. Branch spray guaiFENesin 2020-06 Yes [id number] 400mg Take 1 [facility] 400 mg 1-29 tablet by ity of tablet 00:00: mouth [place] 00 every 4 Medical (four) Branch hours as needed for Cough. benzonatate 2020-06 Yes [id number] 200mg Take 2 [facility] 100 mg 1-29 capsules it[facility] of capsule 00:00: by mouth 2 [place] 00 (two) Medical times Branch daily as needed for Cough. bromphenira 2020-06 Yes [id number] 5mL Take 5 mL [facility] mine-pseudo 1-29 by mouth 4 it y of ephedrine-D 00:00: (four) [place] (BROMFED 00 times Medical DM) 2-30-10 daily as Bran ch mg/5 mL needed for syrup Congestion /Allergies . azelastine 2020-06 Yes [id number] 1{spray Use 1 [facility] 137 mcg 1-29 } [place] in ity of (0.1 %) 00:00: each [place] nasal spray 00 nostril 2 Med ical (two) Branch times daily. Use in each nostril as directed fluticasone 2020-06 Yes [id number] 1{spray Use 1 [facility] propionate 1-29 } [place] in ity o f 50 00:00: each [place] mcg/actuati 00 nostril Medic al on nasal daily. Branch spray guaiFENesin 2020-06 Yes [id number] 400mg Take 1 [facility] 400 mg 1-29 tablet by ity of tablet 00:00: mouth [place] 00 every 4 Medical (four) Branch hours as needed for Cough. benzonatate 2020-06 Yes [id number] 200mg Take 2 [facility] 100 mg 1-29 capsules [facility] of capsule 00:00: by mouth 2 [place] 00 (two) Medical times Branch daily as needed for Cough. bromphenira 2020-06 Yes [id number] 5mL Take 5 mL [facility] mine-pseudo 1-29 by mouth 4 it y of ephedrine-D 00:00: (four) [place] (BROMFED 00 times Medical DM) 2-30-10 daily as Bran ch mg/5 mL needed for syrup Congestion /Allergies . benzonatate 2020-06 Yes [id number] 200mg Take 2 [facility] 100 mg 1-29 capsules [facility] of capsule 00:00: by mouth 2 [place] 00 (two) Medical times Branch daily as needed for Cough. azelastine 2020-06 Yes [id number] 1{spray Use 1 [facility] 137 mcg 1-29 } [place] in ity of (0.1 %) 00:00: each [place] nasal spray 00 nostril 2 Med ical (two) Branch times daily. Use in each nostril as directed fluticasone 2020-06 Yes [id number] 1{spray Use 1 [facility] propionate 1-29 } [place] in ity o f 50 00:00: each [place] mcg/actuati 00 nostril Medic al on nasal daily. Branch spray guaiFENesin 2020-06 Yes [id number] 400mg Take 1 [facility] 400 mg 1-29 tablet by ity of tablet 00:00: mouth [place] 00 every 4 Medical (four) Branch hours as needed for Cough. bromphenira 2020-06 Yes [id number] 5mL Take 5 mL [facility] mine-pseudo 1-29 by mouth 4 it y of ephedrine-D 00:00: (four) [place] (BROMFED 00 times Medical DM) 2-30-10 daily as Bran ch mg/5 mL needed for syrup Congestion /Allergies . azelastine 2020-06 Yes [id number] 1{spray Use 1 [facility] 137 mcg 1-29 } [place] in ity of (0.1 %) 00:00: each [place] nasal spray 00 nostril 2 Med ical (two) Branch times daily. Use in each nostril as directed fluticasone 2020-06 Yes [id number] 1{spray Use 1 [facility] propionate 1-29 } [place] in ity o f 50 00:00: each [place] mcg/actuati 00 nostril Medic al on nasal daily. Branch spray benzonatate 2020-06 Yes [id number] 200mg Take 2 [facility] 100 mg 1-29 capsules ity of capsule 00:00: by mouth 2 [place] 00 (two) Medical times Branch daily as needed for Cough. bromphenira 2020-06 Yes [id number] 5mL Take 5 mL [facility] mine-pseudo 1-29 by mouth 4 it y of ephedrine-D 00:00: (four) [place] (BROMFED 00 times Medical DM) 2-30-10 daily as Bran ch mg/5 mL needed for syrup Congestion /Allergies . azelastine 2020-06 Yes [id number] 1{spray Use 1 [facility] 137 mcg 1-29 } [place] in ity of (0.1 %) 00:00: each [place] nasal spray 00 nostril 2 Med ical (two) Branch times daily. Use in each nostril as directed fluticasone 2020-06 Yes [id number] 1{spray Use 1 [facility] propionate 1-29 } [place] in ity o f 50 00:00: each [place] mcg/actuati 00 nostril Medic al on nasal daily. Branch spray guaiFENesin 2020-06 Yes [id number] 400mg Take 1 [facility] 400 mg 1-29 tablet by ity of tablet 00:00: mouth [place] 00 every 4 Medical (four) Branch hours as needed for Cough. guaiFENesin 2020-06 Yes [id number] 400mg Take 1 [facility] 400 mg 1-29 tablet by ity of tablet 00:00: mouth [place] 00 every 4 Medical (four) Branch hours as needed for Cough. benzonatate 2020-06 Yes [id number] 200mg Take 2 [facility] 100 mg 1-29 capsules it[facility] of capsule 00:00: by mouth 2 [place] 00 (two) Medical times Branch daily as needed for Cough. bromphenira 2020-06 Yes [id number] 5mL Take 5 mL [facility] mine-pseudo 1-29 by mouth 4 it y of ephedrine-D 00:00: (four) [place] (BROMFED 00 times Medical DM) 2-30-10 daily as Bran ch mg/5 mL needed for syrup Congestion /Allergies . azelastine 2020-06 Yes [id number] 1{spray Use 1 [facility] 137 mcg 1-29 } [place] in ity of (0.1 %) 00:00: each [place] nasal spray 00 nostril 2 Med ical (two) Branch times daily. Use in each nostril as directed fluticasone 2020-06 Yes [id number] 1{spray Use 1 [facility] propionate 1-29 } [place] in ity o f 50 00:00: each [place] mcg/actuati 00 nostril Medic al on nasal daily. Branch spray guaiFENesin 2020-06 Yes [id number] 400mg Take 1 [facility] 400 mg 1-29 tablet by ity of tablet 00:00: mouth [place] 00 every 4 Medical (four) Branch hours as needed for Cough. benzonatate 2020-06 Yes [id number] 200mg Take 2 [facility] 100 mg 1-29 capsules ity of capsule 00:00: by mouth 2 [place] 00 (two) Medical times Branch daily as needed for Cough. bromphenira 2020-06 Yes [id number] 5mL Take 5 mL [facility] mine-pseudo 1-29 by mouth 4 it y of ephedrine-D 00:00: (four) [place] (BROMFED 00 times Medical DM) 2-30-10 daily as Bran ch mg/5 mL needed for syrup Congestion /Allergies . azelastine 2020-06 Yes [id number] 1{spray Use 1 [facility] 137 mcg 1-29 } [place] in ity of (0.1 %) 00:00: each [place] nasal spray 00 nostril 2 Med ical (two) Branch times daily. Use in each nostril as directed fluticasone 2020-06 Yes [id number] 1{spray Use 1 [facility] propionate 1-29 } [place] in ity o f 50 00:00: each [place] mcg/actuati 00 nostril Medic al on nasal daily. Branch spray guaiFENesin 2020-06 Yes [id number] 400mg Take 1 [facility] 400 mg 1-29 tablet by ity of tablet 00:00: mouth [place] 00 every 4 Medical (four) Branch hours as needed for Cough. benzonatate 2020-06 Yes [id number] 200mg Take 2 [facility] 100 mg 1-29 capsules [facility] of capsule 00:00: by mouth 2 [place] 00 (two) Medical times Branch daily as needed for Cough. azelastine 2020-06 Yes [id number] 1{spray Use 1 [facility] 137 mcg 1-29 } [place] in ity of (0.1 %) 00:00: each [place] nasal spray 00 nostril 2 Med ical (two) Branch times daily. Use in each nostril as directed fluticasone 2020-06 Yes [id number] 1{spray Use 1 [facility] propionate 1-29 } [place] in ity o f 50 00:00: each [place] mcg/actuati 00 nostril Medic al on nasal daily. Branch spray guaiFENesin 2020-06 Yes [id number] 400mg Take 1 [facility] 400 mg 1-29 tablet by ity of tablet 00:00: mouth [place] 00 every 4 Medical (four) Branch hours as needed for Cough. benzonatate 2020-06 Yes [id number] 200mg Take 2 [facility] 100 mg 1-29 capsules ity of capsule 00:00: by mouth 2 [place] 00 (two) Medical times Branch daily as needed for Cough. bromphenira 2020-06 Yes [id number] 5mL Take 5 mL [facility] mine-pseudo 1-29 by mouth 4 it y of ephedrine-D 00:00: (four) [place] (BROMFED 00 times Medical DM) 2-30-10 daily as Bran ch mg/5 mL needed for syrup Congestion /Allergies . benzonatate 2020-06 Yes [id number] 200mg Take 2 [facility] 100 mg 1-29 capsules ity of capsule 00:00: by mouth 2 [place] 00 (two) Medical times Branch daily as needed for Cough. azelastine 2020-06 Yes [id number] 1{spray Use 1 [facility] 137 mcg 1-29 } [place] in ity of (0.1 %) 00:00: each [place] nasal spray 00 nostril 2 Med ical (two) Branch times daily. Use in each nostril as directed fluticasone 2020-06 Yes [id number] 1{spray Use 1 [facility] propionate 1-29 } [place] in ity o f 50 00:00: each [place] mcg/actuati 00 nostril Medic al on nasal daily. Branch spray guaiFENesin 2020-06 Yes [id number] 400mg Take 1 [facility] 400 mg 1-29 tablet by ity of tablet 00:00: mouth [place] 00 every 4 Medical (four) Branch hours as needed for Cough. azelastine 2020-06 Yes [id number] 1{spray Use 1 [facility] 137 mcg 1-29 } [place] in ity of (0.1 %) 00:00: each [place] nasal spray 00 nostril 2 Med ical (two) Branch times daily. Use in each nostril as directed fluticasone 2020-06 Yes [id number] 1{spray Use 1 [facility] propionate 1-29 } [place] in ity o f 50 00:00: each [place] mcg/actuati 00 nostril Medic al on nasal daily. Branch spray guaiFENesin 2020-06 Yes [id number] 400mg Take 1 [facility] 400 mg 1-29 tablet by ity of tablet 00:00: mouth [place] 00 every 4 Medical (four) Branch hours as needed for Cough. benzonatate 2020-06 Yes [id number] 200mg Take 2 [facility] 100 mg 1-29 capsules [facility]y of capsule 00:00: by mouth 2 [place] (two) Medical times Branch daily as needed for Cough. bromphenira 2020-06- No [id number] 5mL Take 5 mL [facility] mine-pseudo 07-07 by mouth 4 i ty of ephedrine-D 00:00: 00:00 (four) [place] as M (BROMFED 00 :00 times Medical DM) 2-30-10 daily as Bran ch mg/5 mL needed for syrup Congestion /Allergies . traMADOL 2017-0 Yes 50mg Take 1 [facility] (ULTRAM) 50 9-24 tablet by ity of mg tablet 00:00: mouth [place] 00 every 6 Medical (six) Branch hours [...] by ity of mg tablet 00:00: mouth [place] 00 every 6 Medical (six) Branch hours [...] Time Observation Value Comments Source Systolic blood 2023-03-24 139 mm[Hg] [place] of pressure 14:53:00 [facility] Diastolic blood 2023-03-24 85 mm[Hg] University o f pressure 14:53:00 [facility] Heart rate 2023-03-24 81 /min University 14:52:00 [facility] Body temperature 2023-03-24 37 [place] University of 14:52:00 [facility] Respiratory rate 2023-03-24 16 /min University of 14:52:00 [facility] Body weight 2023-03-24 89.359 kg University of 14:52:00 [facility] BMI 2023-03-24 29.95 kg/m2 University of 14:52:00 [facility] Oxygen saturation 2023-03-24 100 /min [facility] in Arterial blood 14:52:00 [facility] by Pulse oximetry [place] Systolic blood 2023-03-17 127 mm[Hg] University of pressure 14:30:00 [facility] Diastolic blood 2023-03-17 90 mm[Hg] University o f pressure 14:30:00 [facility] Heart rate 2023-03-17 94 /min University of 14:30:00 [facility] Body temperature 2023-03-17 36.67 [place] University of 14:30:00 [facility] Respiratory rate 2023-03-17 15 /min University of 14:30:00 [facility] Body height 2023-03-17 172.7 cm University of 14:30:00 [facility] Body weight 2023-03-17 88.99 kg University of 14:30:00 [facility] BMI 2023-03-17 29.83 kg/m2 University of 14:30:00 [facility] Oxygen saturation 2023-03-17 97 /min University of in Arterial blood 14:30:00 [place] [facility] by Pulse oximetry Branch Systolic blood 2023-03-09 101 mm[Hg] University of pressure 19:52:00 [place] [facility] Diastolic blood 2023-03-09 88 mm[Hg] University o f pressure 19:52:00 [facility] Heart rate 2023-03-09 85 /min University of 19:52:00 [facility] Body temperature 2023-03-09 37.72 [place] University of 19:52:00 [facility] Respiratory rate 2023-03-09 16 /min University of 19:52:00 [facility] Body height 2023-03-09 175.3 cm University of 19:52:00 [facility] Body weight 2023-03-09 90.719 kg University of 19:52:00 [facility] BMI 2023-03-09 29.53 kg/m2 University of 19:52:00 [facility] Oxygen saturation 2023-03-09 99 /min University of in Arterial blood 19:52:00 [facility] jono by Pulse oximetry Branch Systolic blood 2023-02-18 117 mm[Hg] University of pressure 06:55:49 [place] [facility] Branch Diastolic blood 2023-02-18 72 mm[Hg] University o f pressure 06:55:49 [facility] Heart rate 2023-02-18 71 /min University of 06:55:49 [facility] Respiratory rate 2023-02-18 17 /min University of 06:55:49 [facility] Oxygen saturation 2023-02-18 99 /min University of in Arterial blood 06:55:49 [facility] jono by Pulse oximetry Branch Body temperature 2023-02-18 37.11 [place] University of 02:51:00 [facility] Body height 2023-02-18 172.7 cm University of 02:51:00 [facility] Body weight 2023-02-18 88.451 kg University of 02:51:00 [facility] BMI 2023-02-18 29.65 kg/m2 University of 02:51:00 [facility] HEIGHT 2022-12-12 172.7 cm 11:30:00 WEIGHT 2022-12-12 [...] 2022-12-04 113 mm[Hg] University of pressure 18:59:00 [facility] Diastolic blood 2022-12-04 70 mm[Hg] University o f pressure 18:59:00 [facility] Heart rate 2022-12-04 81 /min University of 18:59:00 [facility] Body temperature 2022-12-04 36.61 [place] University of 18:59:00 [facility] Respiratory rate 2022-12-04 15 /min University of 18:59:00 [facility] Body height 2022-12-04 174 cm University of 18:59:00 [facility] Body weight 2022-12-04 86.229 kg [facility] [facility] BMI 2022-12-04 28.48 kg/m2 University of 18:59:00 [facility] Oxygen saturation 2022-12-04 98 /min University of in Arterial blood 18:59:00 [facility] jono by Pulse oximetry Branch Systolic blood 2022-12-04 131 mm[Hg] University of pressure 00:21:14 [facility] Diastolic blood 2022-12-04 77 mm[Hg] University o f pressure 00:21:14 [facility] Heart rate 2022-12-04 81 /min University of 00:21:14 [facility] Respiratory rate 2022-12-04 18 /min University of 00:21:14 [facility] Oxygen saturation 2022-12-04 100 /min [facility] in Arterial blood 00:21:14 [facility] jono by Pulse oximetry Branch Body height 2022-12-03 172.7 cm University of 22:22:00 [facility] Body weight 2022-12-03 83.915 kg University of 22:22:00 [facility] BMI 2022-12-03 28.13 kg/m2 University of 22:22:00 [facility] Systolic blood 2022-11-18 153 mm[Hg] University of pressure 20:19:00 [facility] Diastolic blood 2022-11-18 64 mm[Hg] University o f pressure 20:19:00 [facility] Heart rate 2022-11-18 118 /min University of 20:19:00 [facility] Body temperature 2022-11-18 37.22 Lynne University of 20:19:00 [facility] Respiratory rate 2022-11-18 20 /min University of 20:19:00 [facility] Body weight 2022-11-18 86.183 kg University of 20:19:00 [facility] BMI 2022-11-18 28.06 kg/m2 University of 20:19:00 [facility] Oxygen saturation 2022-11-18 100 /min University of in Arterial blood 20:19:00 [facility] by Pulse oximetry Branch Systolic blood 2022-10-15 125 mm[Hg] University of pressure 17:27:00 [facility] Diastolic blood 2022-10-15 82 mm[Hg] University o f pressure 17:27:00 [facility] Heart rate 2022-10-15 79 /min University of 17:27:00 [facility] Respiratory rate 2022-10-15 16 /min University of 17:27:00 [facility] Oxygen saturation 2022-10-15 99 /min University of in Arterial blood 17:27:00 [facility] by Pulse oximetry Branch Body temperature 2022-10-15 36.72 Lynne University of 15:04:00 [facility] Body height 2022-10-15 175.3 cm University of 15:04:00 [facility] Body weight 2022-10-15 86.183 kg University of 15:04:00 [facility] BMI 2022-10-15 28.06 kg/m2 University of 15:04:00 [facility] Systolic blood 2022-10-01 169 mm[Hg] University of pressure 16:23:00 [facility] Diastolic blood 2022-10-01 83 mm[Hg] University o f pressure 16:23:00 [facility] Heart rate 2022-10-01 78 /min [facility] 16:23:00 [facility] Body temperature 2022-10-01 36.83 Lynne University [facility] 16:23:00 [facility] Respiratory rate 2022-10-01 16 /min University of 16:23:00 [facility] Body weight 2022-10-01 88.905 kg University of 16:23:00 [facility] BMI 2022-10-01 29.80 kg/m2 University of 16:23:00 [facility] Oxygen saturation 2022-10-01 100 /min [facility] in Arterial blood 16:23:00 [place] [facility] Pulse oxim[facility] Systolic blood 2022-09-30 120 mm[Hg] University [facility] pressure 01:08:00 [facility] Diastolic blood 2022-09-30 81 mm[Hg] University o f pressure 01:08:00 [facility] Heart rate 2022-09-30 95 /min University of :08:00 [facility] Body temperature 2022-09-30 36.28 Lynne University of :08:00 [facility] Respiratory rate 2022-09-30 20 /min University of :08:00 [facility] Body height 2022-09-30 172.7 cm University of :08:00 [facility] Body weight 2022-09-30 89.268 kg University of :08:00 [facility] BMI 2022-09-30 29.92 kg/m2 University of :08:00 [facility] Oxygen saturation 2022-09-30 97 /min University of in Arterial blood :08:00 [facility] jono by Pulse oximetry Branch Systolic blood 2022-07-04 136 mm[Hg] University of pressure 17:03:00 [facility] Diastolic blood 2022-07-04 80 mm[Hg] University o f pressure 17:03:00 [facility] Heart rate 2022-07-04 66 /min University of 17:00:00 [facility] Body temperature 2022-07-04 36.94 Lynne University of 17:00:00 [facility] Respiratory rate 2022-07-04 16 /min University [facility] 17:00:00 [facility] Body height 2022-07-04 174 cm University of 17:00:00 [facility] Body weight 2022-07-04 88.451 kg University of 17:00:00 [facility] BMI 2022-07-04 29.22 kg/m2 University of 17:00:00 [facility] Oxygen saturation 2022-07-04 100 /min University of in Arterial blood 17:00:00 [facility] jono by Pulse oximetry Branch Systolic blood 2022-05-07 170 mm[Hg] University of pressure 16:32:00 [facility] Diastolic blood 2022-05-07 104 mm[Hg] University o f pressure 16:32:00 [facility] Heart rate 2022-05-07 87 /min University of 16:29:00 [facility] Body temperature 2022-05-07 37.11 Ylnne University of 16:29:00 [facility] Respiratory rate 2022-05-07 17 /min University of 16:29:00 [facility] Body height 2022-05-07 174 cm University [facility] 16::00 [facility] Body weight 2022-05-07 90.81 kg University of 16::00 [facility] BMI 2022-05-07 30.00 kg/m2 University of 16::00 [facility] Oxygen saturation 2022-05-07 100 /min [facility] of in Arterial blood 16:29:00 [facility] by Pulse oximetry Branch Systolic blood 2021-11-06 144 mm[Hg] University of pressure 17:00:00 [facility] Diastolic blood 2021-11-06 90 mm[Hg] University o f pressure 17:00:00 [facility] Heart rate 2021-11-06 72 /min University [facility] 17:00:00 [facility] Respiratory rate 2021-11-06 16 /min [facility] 17:00:00 [facility] Oxygen saturation 2021-11-06 98 /min [facility] in Arterial blood 17:00:00 [facility] jono by Pulse oximetry Branch Body temperature 2021-11-06 36 Lynne University of 14:24:00 [facility] Body height 2021-11-06 172.7 cm University of 14::00 [facility] Body weight 2021-11-06 88.451 kg University of 14::00 [facility] BMI 2021-11-06 29.65 kg/m2 University of 14:24:00 [facility] Systolic blood 2021-10-16 148 mm[Hg] [facility] pressure 20:21:00 [facility] Diastolic blood 2021-10-16 92 mm[Hg] University o f pressure 20:21:00 [facility] Heart rate 2021-10-16 83 /min University [facility] 20:18:00 [facility] Body temperature 2021-10-16 37.39 Lynne University of 20:18:00 [facility] Respiratory rate 2021-10-16 18 /min University [facility] 20:18:00 [facility] Body height 2021-10-16 175.3 cm University of 20:18:00 [facility] Body weight 2021-10-16 89.982 kg University of 20:18: [facility] BMI 2021-10-16 29.29 kg/m2 University [facility] 20:18:00 [facility] Oxygen saturation 2021-10-16 100 /min [facility] in Arterial blood 20:18:00 [place] [facility] Pulse oximetry [facility] Systolic blood 2021-06-03 125 mm[Hg] [facility] pressure 20:08:00 [facility] Diastolic blood 2021-06-03 78 mm[Hg] University o f pressure 20:08:00 [facility] Heart rate 2021-06-03 79 /min University [facility] 20:08:00 [facility] Body temperature 2021-06-03 36.78 Lynne University of 20:08:00 [facility] Respiratory rate 2021-06-03 18 /min [facility] 20:08:00 [facility] Body height 2021-06-03 172.7 cm University of 20:08:00 [facility] Body weight 2021-06-03 92.987 kg University of 20:08:00 [facility] BMI 2021-06-03 31.17 kg/m2 University of 20:08:00 [facility] Oxygen saturation 2021-06-03 98 /min [facility] in Arterial blood 20:08:00 [place] [facility] Pulse oxim[facility] Systolic blood 2021-05-08 169 mm[Hg] [facility] pressure 01:03:00 [facility] Diastolic blood 2021-05-08 96 mm[Hg] University o f pressure 01:03:00 [facility] Heart rate 2021-05-08 71 /min [facility] 01:02:00 [facility] Respiratory rate 2021-05-08 20 /min [facility] 01:02:00 [facility] Body height 2021-05-08 172.7 cm University of :02:00 [facility] Body weight 2021-05-08 97.659 kg University of 01:02:00 [facility] BMI 2021-05-08 32.74 kg/m2 [facility] 01:02:00 [facility] Oxygen saturation 2021-05-08 99 /min [facility] in Arterial blood 01:02:00 [facility] by Pulse oximetry Branch Respiratory rate 2022-12-17 16 /min [facility] 09[facility]00 [facility] Oxygen saturation 2022-12-17 100 /[facility] in Arterial blood 09:48:00 Medical nter by Pulse oximetry Systolic blood 2022-12-17 135 mm[Hg] [facility] pressure 07:35:00 [facility] Diastolic blood 2022-12-17 80 mm[Hg] [facility] pressure 07:35:00 [facility] Heart rate 2022-12-17 77 /min [facility] 07:35:00 [facility] Body temperature 2022-12-[address] [facility] 07:35:00 [facility] Body height 2022-12-[address] [facility] 11:30:00 [facility] Body weight 2022-12-[address] [facility] 11:30:00 [facility] BMI 2022-12-12 28.86 kg/m2 [facility] 11:30:00 [facility] Body height 2022-12-[address] [facility] 08:48:00 [facility] Body weight 2022-12-[address] [facility] 08:48:00 [facility] BMI 2022-12-11 28.47 kg/m2 [facility] 08:48:00 [facility] Systolic blood 2022-12-06 157 mm[Hg] [facility] pressure 11:12:00 [facility] Diastolic blood 2022-12-06 86 mm[Hg] [facility] pressure 11:12:00 [facility] Heart rate 2022-12-06 67 /min [facility] 11:12:00 [facility] Body temperature 2022-12-[address] [facility] 11:12:00 [facility] Respiratory rate 2022-12-06 16 /min [facility] 11:12:00 [facility] Oxygen saturation 2022-12-06 99 /min [facility] in Arterial blood 11:12:00 Medical Ce nter by Pulse oximetry Systolic blood 2021-12-18 147 mm[Hg] [facility] 11:20[facility]00 [facility] Diastolic blood 2021-12-18 69 mm[Hg] [facility] pressure 11:20:00 [facility] Center Heart rate 2021-12-18 72 /min [facility] 11:20:00 [facility] Body temperature 2021-12-[address] [facility] 11:20:[facility] Respiratory rate 2021-12-18 18 /min [facility] 11:20:00 [facility] Oxygen saturation 2021-12-18 97 /min [facility] in Arterial blood 11:20:00 Medical nter by Pulse oximetry Body height 2021-12-[address] [facility] 05:01:00 [facility] Body weight 2021-12-11 88.451 kg patient stated [facility] 05:01:00 weight [facility] BMI 2021-12-11 28.88 kg/m2 [facility] 05:01:[facility] Procedures Procedure Date / Time Performing Clinician Source Performed POCT SARS-COV-2 ANTIGEN 2023-03-17 14:48:00 Leann Yao [facility] (BINAX NOW) [facility] POCT MOLECULAR FLU 2023-03-17 14:41:00 Unknown, Attending [facility] POCT MOLECULAR STREP 2023-03-17 14:39:00 Unknown, Attending [facility] CONSENT/REFUSAL FOR 2023-03-09 19:46:15 Doctor Unassigned, [facility] DIAGNOSIS AND TREATMENT [place] [facility] POCT TEST 2023-02-18 03:15:00 Theodore Foreman [facility] BASIC METABOLIC PANEL 2023-02-18 03:14:00 Theodore Foreman [facility] (NA, K, CL, CO2, GLUCOSE, Medica l Branch BUN, CREATININE, CA) CBC WITH DIFF 2023-02-18 03:14:00 Theodore Foreman [facility] CONSENT/REFUSAL FOR 2023-02-18 02:42:36 Doctor Unassigned, [facility] DIAGNOSIS AND TREATMENT [place] [facility] XR LUMBAR SPINE 2 OR 3 2023-01-23 11:42:08 Dion Dow [facility] CBC W/PLT COUNT & AUTO 2022-12-14 10:17:00 Paco Castañeda [facility] BASIC METABOLIC PANEL 2022-12-14 10:17:00 Paco Castañeda [facility] CBC W/PLT COUNT & AUTO 2022-12-14 10:17:00 Paco Castañeda [facility] XR LUMBAR SPINE 2 OR 3 2022-12-13 17:08:00 [facility] [place] BASIC METABOLIC PANEL 2022-12-13 03:24:00 [facility] [place] CBC (HEMOGRAM ONLY) 2022-12-13 03:24:00 [facility] [place] FLUORO NON-SPECIFIC UP 2022-12-12 15:00:00 Dion Dow [facility] TO 1 HOUR Center LAMINECTOMY, SPINE, 2022-12-12 14:03:00 Dion Dow [facility] LUMBAR, WITH FUSION Center LAMINECTOMY, SPINE, 2022-12-12 14:03:00 Dion Dow [facility] LUMBAR, ANTERIOR Center APPROACH, WITH FUSION INSERTION, HARDWARE, 2022-12-12 14:03:00 Victor MDion [facility] SPINAL Center INSERTION, INTERVERTEBRAL 2022-12-12 14:03:00 Dion Dow [facility] BIOMEDICAL DEVICE, SPINE, Center LUMBAR PROCEDURE, ALLOGRAFT, FOR 2022-12-12 14:03:00 Dion Dow [facility] SPINE SURGERY Center PROCEDURE, USING 2022-12-12 14:03:00 Dion Dow [facility] FRAMELESS STEREOTAXY Center PROCEDURE W/ C-ARM 2022-12-12 14:03:00 Dion Dow [facility] LAMINECTOMY, SPINE, 2022-12-12 13:00:00 Dion Dow [facility] LUMBAR, WITH FUSION Center LAMINECTOMY, SPINE, 2022-12-12 13:00:00 Dion Dow [facility] LUMBAR, ANTERIOR Center APPROACH, WITH FUSION INSERTION, HARDWARE, 2022-12-12 13:00:00 Dion Dow [facility] SPINAL Center INSERTION, INTERVERTEBRAL 2022-12-12 13:00:00 Dion Dow [facility] BIOMEDICAL DEVICE, SPINE, Center LUMBAR PROCEDURE, ALLOGRAFT, FOR 2022-12-12 13:00:00 Dion Dow [facility] SPINE SURGERY Center PROCEDURE, USING 2022-12-12 13:00:00 Dion Dow [facility] FRAMELESS STEREOTAXY Center PROCEDURE W/ C-ARM 2022-12-12 13:00:00 [place] [facility] POCT , URINE 2022-12-12 11:57:00 Darian Roche [facility] XR CHEST 2 VIEWS 2022-12-06 12:04:00 Alysa López [facility] URINALYSIS W/ REFLEX 2022-12-06 10:49:00 Katarzyna Delarosa [facility] URINE CULTURE Center SCREEN, URINE 2022-12-06 10:49:00 Katarzyna Delarosa [facility] CBC W/PLT COUNT & AUTO 2022-12-06 10:49:00 Katarzyna Delarosa [facility] DIFFERENTIAL [place] BASIC METABOLIC PANEL 2022-12-06 10:49:00 Katarzyna Delarosa [facility] PT/APTT 2022-12-06 10:49:00 Katarzyna Delarosa [facility] TYPE AND SCREEN, 2022-12-06 10:49:00 Katarzyna Delarosa [facility] AUTOMATED Center CBC W/PLT COUNT & AUTO 2022-12-06 10:49:00 Katarzyna Delarosa [facility] DIFFERENTIAL [place] ECG 12-LEAD 2022-12-06 10:46:01 Katarzyna Delarosa [facility] ECG 12-LEAD 2022-12-06 10:46:01 Unknown, Hl7 Doctor [facility] ECG 12-LEAD 2022-12-06 10:46:01 Unknown, Hl7 Doctor [facility] POCT URINALYSIS 2022-12-04 19:00:00 Leann Yao o f [place] [facility] BASIC METABOLIC PANEL 2022-12-03 22:32:00 Tati Damon [facility] (NA, K, CL, CO2, GLUCOSE, Medica l Branch BUN, CREATININE, CA) CBC WITH DIFF 2022-12-03 22:32:00 Tati Damon [facility] [place] CONSENT/REFUSAL FOR 2022-12-03 22:10:29 [facility] DIAGNOSIS AND TREATMENT [place] [facility] ASSIGNMENT OF BENEFITS 2022-11-22 17:43:28 Doctor Unassigned, [facility] Name [facility] [place] MR LUMBAR SPINE WO 2022-11-21 18:57:03 Gabriela Jarrett [facility] CONTRAST [facility] NOTICE OF PRIVACY 2022-11-21 18:09:01 Doctor Unassigned, [facility] PRACTICES [place] [facility] CONSENT/REFUSAL FOR 2022-11-21 18:08:42 [facility] DIAGNOSIS AND TREATMENT [place] [facility] ASSIGNMENT OF BENEFITS 2022-11-21 18:08:19 Doctor Unassigned, [facility] Name Medical [place] CT LUMBAR SPINE WO 2022-11-18 21:38:53 Maggie Low [facility] CONTRAST [facility] POCT TEST 2022-11-18 20:55:00 Maggie Low [facility] [place] COMP. METABOLIC PANEL 2022-11-18 20:52:00 Maggie Low [facility] ([id number]) Medical Branch CBC WITH DIFF 2022-11-18 20:52:00 Maggie Low [facility] [place] URINALYSIS 2022-11-18 20:52:00 Devante reg [facility] [place] ASSIGNMENT OF BENEFITS 2022-11-18 20:27:59 Doctor Unassigned, [facility] [place] [facility] CONSENT/REFUSAL FOR 2022-11-18 20:12:54 Doctor Unassigned, [facility] DIAGNOSIS AND TREATMENT [place] [facility] XR FOOT <3 VW RIGHT 2022-10-15 15:32:21 Maik Hadley [facility] CONSENT/REFUSAL FOR 2022-10-15 14:59:01 Doctor Unassigned, [facility] DIAGNOSIS AND TREATMENT [place] [facility] POCT SARS-COV-2 ANTIGEN 2022-07-04 17:21:00 Tristan Trejo [facility] (BINAX NOW) [facility] POCT MOLECULAR FLU 2022-07-04 17:10:00 Unknown, Attending [facility] POCT MOLECULAR FLU 2022-05-07 17:11:00 Unknown, Attending [facility] XR CHEST 2 VW 2022-05-07 17:10:00 [facility] COVID-19 (MOLECULAR 2022-05-07 17:08:00 Mayur [facility] TESTING [facility] NUCLEIC ACID AMPLIFICATION) LAB ONLY COVID 2022-05-07 17:08:00 Mayur [facility] INTERPRETATION [facility] POCT MOLECULAR STREP 2022-05-07 17:07:00 Unknown, Attending [facility] CBC W/PLT COUNT & AUTO 2021-12-18 04:25:00 Bear V[facility]as [facility] DIFFERENTIAL [facility] BASIC METABOLIC PANEL 2021-12-18 04:25:00 Bear Vyas [facility] CBC W/PLT COUNT & AUTO 2021-12-18 04:25:00 Bear Vyas [facility] DIFFERENTIAL [place] FLUORO NON-SPECIFIC UP 2021-12-17 11:43:00 Dion Dow [facility] TO 1 HOUR Center LAMINECTOMY, SPINE, 2021-12-17 10:33:00 Dion Dow [facility] LUMBAR, WITH DISCECTOMY Center PROCEDURE W/ C-ARM 2021-12-17 10:33:00 Dion Dow [facility] CBC W/PLT COUNT & AUTO 2021-12-17 04:26:00 Bear Vyas [facility] DIFFERENTIAL [place] [facility] BASIC METABOLIC PANEL 2021-12-17 04:26:00 Bear Vyas [facility] CBC W/PLT COUNT & AUTO 2021-12-17 04:26:00 Valentin [facility] DIFFERENTIAL [place] SARS-COV2/RT-PCR ([facility] & 2021-12-16 14:50:00 Valentin [facility] REF LABS) Center SCREEN, URINE 2021-12-16 11:49:00 Mario Rice [facility] Center ABORH, MANUAL 2021-12-16 04:51:00 Rebeca Malave [facility] PT/APTT 2021-12-16 04:02:00 Valentin [facility] CBC W/PLT COUNT & AUTO 2021-12-16 04:02:00 [facility] [place] BASIC METABOLIC PANEL 2021-12-16 04:02:00 Bear Vyas [facility] TYPE AND SCREEN, 2021-12-16 04:02:00 Valentin [facility] AUTOMATED Center CBC W/PLT COUNT & AUTO 2021-12-16 04:02:00 Valentin [facility] ECG 12-LEAD 2021-12-15 15:19:20 Valentin [facility] XR CHEST 1 VIEW PORTABLE 2021-12-15 14:06:00 Valentin [facility] / BEDSIDE Center BASIC METABOLIC PANEL 2021-12-12 04:08:00 Farzaneh Cartwright [facility] HEPATIC FUNCTION PANEL 2021-12-12 04:08:00 Farzaneh Cartwright [facility] CBC W/PLT COUNT & AUTO 2021-12-12 04:08:00 Farzaneh Cartwright [facility] Center CBC W/PLT COUNT & AUTO 2021-12-12 04:08:[address] [facility] DIFFERENTIAL Center SARS-COV2/RT-PCR ([facility] & 2021-12-11 13:54:00 Bear Vyas [facility] Medical REF LABS) [facility] MR LUMBAR SPINE WITHOUT 2021-12-11 08:45:00 Lakhwinder Toledo [facility] IV CONTRAST [facility] ABDOMEN PELVIS W 2021-11-06 15:49:20 Aye Mejia [facility] CONTRAST [facility] POCT TEST 2021-11-06 15:17:00 Aye Mejia [facility] LIPASE 2021-11-06 15:11:00 [facility] COMP. METABOLIC PANEL 2021-11-06 15:11:00 Aye Mejia [facility] ([id number]) Medical [place] CBC WITH DIFF 2021-11-06 15:11:00 [facility] URINALYSIS 2021-11-06 14:37:00 Roberto [facility] NOTICE OF PRIVACY 2021-11-06 14:26:59 Doctor Unassigned, [facility] [place] [facility] CONSENT/REFUSAL FOR 2021-11-06 14:19:53 Doctor Unassigned, [facility] DIAGNOSIS AND TREATMENT [place] [facility] POCT MOLECULAR STREP 2021-10-16 20:24:00 Tristan Trejo [facility] ASSIGNMENT OF BENEFITS 2021-10-16 20:13:33 Doctor Unassigned, [facility] Name Medical Branch [id number] 2019-10-06 00:00:00 [facility] [id number] 2019-10-06 00:00:00 [facility] Plan of Care Planned Activity Planned Date Details Comments Source Future Scheduled 2023-12-[address] [facility] Test 00:00:00 Counseling and Screening Med [facility] (12+) [code = Tobacco Cessation Counseling and Screening (12+)] Future Scheduled 2023-12-[address] [facility] Test 00:00:00 Counseling and Screening Med [facility] (12+) [code = Tobacco Cessation Counseling [...] Counseling and Screening (12+)] Future Scheduled 2023-02-07 INFLUENZA VACCINE (Season [facility] [...] cervix Medical C enter (procedure) [code = 083777521] Future Scheduled 2005 Screening for malignant [facility] Test 00:00:00 neoplasm of cervix Medical C enter (procedure) [code = 220749166] Future Scheduled 2005 Screening for malignant [facility] Test 00:00:00 neoplasm of cervix Medical C enter (procedure) [code = 627838194] Future Scheduled 2005 Screening for malignant [facility] Test 00:00:00 neoplasm of cervix Medical C enter (procedure) [code = 644021231] Future Scheduled 2005 Screening for malignant [facility] Test 00:00:00 neoplasm of cervix Medical C enter (procedure) [code = 521832349] Future Scheduled 2005 [facility] malignant [facility] [facility] neoplasm of cervix Medical C enter (procedure) [code = 890806783] Future Scheduled 2005 Screening for malignant [facility] 00:[facility]:00 neoplasm of cervix Medical C enter (procedure) [code = 252925514] Future Scheduled 2005 Screening for malignant [facility] 00:00:00 neoplasm of cervix Medical C enter (procedure) [code = 638183781] Future Scheduled 2005 Screening for malignant [facility] 00:00:00 neoplasm of cervix Medical C enter (procedure) [code = 182774103] Future Scheduled 2005 Screening for malignant [facility] 00:00:00 neoplasm of cervix Medical C enter (procedure) [code = 425807411] Future Scheduled 2005 Screening for malignant [facility] 00:00:00 neoplasm of cervix Medical C enter (procedure) [code = 435610239] Future Scheduled 2005 Screening for malignant [facility] 00:00:00 neoplasm of cervix Medical C enter (procedure) [code = 344064704] Future Scheduled 2003-11-06 DTAP/TDAP/TD VACCINES (1 [facility] (procedure) [code = 176076030] Future Scheduled 1999-11-[address] [facility] virus screening [facility] (procedure) [code = 689207990] Future Scheduled 1999-11-[address] Human immunodeficiency [facility] (procedure) [code = 588848538] Future Scheduled 1999-11-[address] Human immunodeficiency [facility] screening [facility] (procedure) [code = 862969405] Future Scheduled 1999-11-[address] Human immunodeficiency [facility] virus screening [facility] (procedure) [code = 766852934] Future Scheduled 1999-11-[address] Human immunodeficiency [facility] (procedure) [code = 614994626] Future Scheduled 1999-11-[address] Human immunodeficiency [facility] virus screening [facility] (procedure) [code = 441619208] Future Scheduled [address] [...] Facility Department ID 2022-12-13 Inpatient DION AVILA [facility] [id number] [facility] 15:02:29 2022-12-12 Inpatient DION AVILA [facility] [id number] [facility] 17:50:41 2022-12-12 Inpatient DION AVILA [facility] [id number] [facility] 17:06:51 2022-12-12 Inpatient DION AVILA [facility] [id number] [facility] 14:35:53 2022-12-12 Inpatient DION AVILA [facility] [id number] [facility] 14:24:25 2019-11-16 Inpatient [facility] NIKKO [id number] [facility] 15:52:00 62 [facility] 2019-10-16 Inpatient [place] [id number] [facility] 01:11:00 Sanna 13 [facility] 2019-10-06 Inpatient [facility] to [facility], [facility] LD [id number] [facility] 00:27:00 Sanna 30 [facility] 2019-09-15 Inpatient [place] [id number] [facility] 13:41:00 Sanna 76 [facility] 2019-09-08 Inpatient [place] [id number] [facility] 14:47:00 Sanna 45 [facility] 2019-08-14 Inpatient [facility] [id number] [facility] 17:43:00 Sanna 52 [facility] 2019-07-29 Inpatient [facility], [facility] OBANTE [id number] [facility] 10:30:00 Sanna 81 [facility] 2019-06-30 Inpatient [place], [facility] ROMAN [id number] [facility] 21:41:00 Sanna 94 [facility] 2023-03-24 2023-03-24 Outpatient Abhishek TREJO [facility] [id number] Univers 09:20:00 10:07:39 TRISTAN lazaro [facility] 2023-03-24 2023-03-24 Urgent Tristan Trejo [facility] 1.2.840.114 [id number] Univers 09:20:00 10:07:39 Care Unknown, Attending HEALTH 350.1.13.10 ity [facility] 4.2.7.2.686 Yogesh as ANN?BLEA [id number] [address] 2023-03-17 2023-03-17 Urgent Leann Yao [facility] 1.2.840.114 [id number] Univers 09:20:00 09:40:00 Care Unknown, Attending HEALTH 350.1.13.10 ity of [place] 4.2.7.2.686 Yogesh as ANN?BLEA [id number] [address] 2023-03-17 2023-03-17 Outpatient [facility] [id number] Univers 09:20:00 09:20:00 LEANN [facility] 2023-03-09 2023-03-09 Emergency X [facility] ERT [id number] Univers 14:55:00 16:08:00 AYAAN [facility] 2023-03-09 2023-03-09 [facility] [id number] [id number] Univers 14:55:00 16:08:00 Ayaan [facility] 350.1.13.10 i ty of [place] 4.2.7.2.686 [place] [facility] [id number] [address] 2023-02-22 2023-02-22 Outside Dion Dow [facility] [id number] [facility] 00:00:00 Orders [facility] 2023-02-22 2023-02-22 Outside [place] [facility] [id number] 00:[facility] 00:00:00 Orders [facility] 2023-02-20 2023-02-20 Orders Dion Dow [facility] [id number] 00:[facility]00 00:00:00 Only [facility] 2023-02-20 2023-02-20 Orders Dion Dow [facility] [id number] 00:00[facility]00 00:00:00 Only [facility] 2023-02-17 2023-02-18 Emergency X V[place], [facility] ERT [id number] Univers 21:54:00 02:09:00 THEODORE lazaro of [facility] 2023-02-17 2023-02-18 Emergency [facility], [facility] [id number] Univers 21:54:00 02:09:00 Theodore SKY 350.1.13.10 i [facility] 4.2.7.2.686 [facility] [id number] [place] [address] [address] 2023-01-23 2023-01-23 Outpatient DION DOW [facility] SLE [id number] SLE 11:16:40 23:59:00 2023-01-23 2023-01-23 [facility] Dion Dow [facility] [id number] [id number] 11:10:00 23:59:00 Encounter [facility] 2023-01-23 2023-01-23 [facility] Ej Dowrus [facility] [id number] [id number] 11:10:00 23:59:00 Encounter [facility] 2023-01-09 2023-01-09 [facility] [id number] 00:00:00 00:00:00 Orders [facility] 2023-01-09 2023-01-09 [facility] [id number] 00:00:00 00:00:00 Orders [facility] 2023-01-08 2023-01-08 [facility] [id number] 00:00:00 00:00:00 Only [facility] 2023-01-08 2023-01-08 [facility] Ej Dowrus [facility] [id number] 00:00:00 00:00:00 Only [facility] 2022-12-12 2022-12-17 [facility] Dion Avila [facility] [id number] [id number] 11:08:00 12:53:00 Encounter [facility] 2022-12-12 2022-12-17 [facility] Dion Dow [facility] [id number] [id number] 11:08:00 12:53:00 Encounter [facility] 2022-12-12 2022-12-17 Inpatient DION AVILA [facility] Surgery [id number] SLE 11:08:00 12:53:00 2022-12-12 2022-12-12 Anesthesia ShonShane han [facility] [id number] [facility] 14:03:00 18:53:00 Event Darian Roche [facility] 2022-12-12 2022-12-12 Anesthesia ShonShane han [facility] [id number] [facility] 14:03:00 18:53:00 Event Darian Roche [facility] 2022-12-12 2022-12-12 [facility] Dion Dow [facility] [id number] 13:00:00 17:30:00 [facility] 2022-12-12 2022-12-12 [facility] Dion Dow [facility] [id number] 13:00:00 17:30:00 [facility] 2022-12-12 2022-12-12 Travel [facility] [id number] [facility] 00:[facility]00 00:00:00 [facility] 2022-12-12 2022-12-12 Travel [facility] [id number] [facility] 00:00:00 00:00:00 [facility] 2022-12-11 2022-12-11 Outpatient [facility] [id number] SLE 08:57:18 23:59:00 2022-12-11 2022-12-11 [facility] Dion Dow [facility] [id number] [id number] 08:00:00 23:59:00 Encounter [facility] 2022-12-11 2022-12-11 [facility] Dion Dow [facility] [id number] [id number] 08:00:00 23:59:00 Encounter [facility] 2022-12-11 2022-12-11 Travel [facility] [id number] [facility] 00:[facility]:00 00:00:00 [facility] 2022-12-11 2022-12-11 Travel [facility] [id number] [facility] 00:[facility]00 00:00:00 [facility] 2022-12-06 2022-12-06 [facility] Dion Dow [facility] [id number] [id number] 10:15:53 23:59:00 Encounter [facility] 2022-12-06 2022[facility]12-06 [facility] [id number] [id number] 10:15:53 23:59:00 Encounter [facility] 2022-12-06 2022-12-06 Outpatient DION AVILA SLE SLE [id number] SLEH 10:15:53 23:59:00 2022-12-06 2022-12-06 Outpatient [facility] [id number] SLEH 10:15:15 10:15:15 2022-12-06 2022-12-06 Outpatient DION DOW [facility] SLE [id number] SLEH 10:14:48 10:14:00 2022-12-06 2022-12-06 [facility] Dion Dow [facility] [id number] [id number] 10:00:00 10:14:00 Encounter [facility] 2022-12-06 2022-12-06 [facility] [id number] [id number] 10:00:00 10:14:00 Encounter [facility] 2022-12-06 2022-12-06 Outpatient DION AVILA [facility] SLE [id number] SLEH 10:14:28 09:59:00 2022-12-06 2022-12-06 [facility] Dion Dow [facility] [id number] [id number] 09:30:00 09:59:00 Encounter [facility] 2022-12-06 2022-12-06 Hospital Dion Dow [facility] [id number] [id number] 09:30:00 09:59:00 Encounter [facility] 2022-12-06 2022-12-06 Orders [facility] [id number] 00:00:00 00:00:00 Only [facility] 2022-12-06 2022-12-06 Orders [facility] [id number] 00:00:00 00:00:00 Only [facility] 2022-12-05 2022-12-05 Orders Dion Dow [facility] [id number] 00:00:00 00:00:00 Only [facility] 2022-12-05 2022-12-05 Orders Dion Dow [facility] [id number] 00:00:00 00:00:00 Only [facility] 2022-12-04 2022-12-04 Outpatient Abhishek YAO [facility] [id number] Univers 13:40:00 14:11:55 LEANN lazaro [facility] 2022-12-04 2022-12-04 Urgent Qamar Yaoanda [facility] 1.2.840.114 [id number] Univers 13:40:00 14:11:55 Care Unknown, Attending HEALTH 350.1.13.10 Danyel 4.2.7.2.686 Yogesh as ANN?BLEA [id number] [address] MEDICAL OFFICE BUILDING 2022-12-03 2022-12-03 Emergency X [facility] ERT [id number] Univers 17:23:00 19:58:00 TATI lazaro [facility] 2022-12-03 2022-12-03 [facility] [id number] [id number] Univers 17:23:00 19:58:00 Tati SKY 350.1.13.10 ithenrietta GAYLA 4.2.7.2.686 [id number] [address] 2022-11-22 2022-11-22 Outpatient R CAYDEN RODRIGUEZ [facility] [id number] Univers 12:30:00 12:30:00 CAYDEN RODRIGUEZ ithenrietta [facility] 2022-11-22 2022-11-22 Orders Doctor ALYSA 1.2.840.114 [id number] Univers 00:00:00 00:00:00 Only Unassigned, ALLI 350.1.13.10 ity of [facility] 4.2.7.2.686 Yogesh as [id number] [facility] [address] 2022-11-21 2022-11-21 [facility] 1.2.840.114 [id number] Univers 14:00:59 23:59:00 Encounter Gabriela SKY 350.1.13.10 ity [facility] [place]2.7.[place] [id number] [facility] [address] 2022-11-21 2022-11-21 Outpatient [facility] [id number] Univers 13:09:43 13:59:00 GABRIELA mensahhenrietta [facility] 2022-11-21 2022-11-21 [facility] 1.2.840.114 [id number] Univers 13:09:43 13:59:00 Encounter Gabriela SKY 350.1.13.10 ity [facility] 4.2.7.2.[place] [id number] [facility] [address] 2022-11-20 2022-11-20 Outpatient [facility] [id number] Univers 09:30:00 09:30:00 GABRIELA mensahhenrietta [facility] 2022-11-18 2022-11-18 Emergency X [facility] ERT [id number] Univers 15:20:00 19:01:00 MAGGIE lazaro [facility] 2022-11-18 2022-11-18 Emergency [facility] 1.2.840.114 [id number] Univers 15:20:00 19:01:00 Maggie SKY 350.1.13.10 i ty of [place] 4.2.7.2.686 [facility] [id number] [address] 2022-11-18 2022-11-18 Orders Dion Dow [facility] [id number] 00:00:00 00:00:00 Only [facility] 2022-11-18 2022-11-18 Orders Dion Dow [facility] [id number] 00:00:00 00:00:00 Only [facility] 2022-10-15 2022-10-15 Emergency X [facility] ERT [id number] Univers 10:05:00 12:29:00 MAIK tejas [facility] 2022-10-15 2022-10-15 Emergency [facility] [id number] [id number] Univers 10:05:00 12:29:00 Maik SKY 350.1.13.10 i wicho GAYLA 4.2.7.2.686 [facility] [id number] [address] 2022-10-01 2022-10-01 Urgent Tristan Trejo [facility] 1.2.840.114 [id number] Univers 11:00:00 11:20:00 Care Unknown, Attending HEALTH 350.1.13.10 Danyel 4.2.7.2.686 Yogesh as ANN?BLEA [id number] [address] MEDICAL OFFICE BUILDING 2022-10-01 2022-10-01 Outpatient R CLAY [facility] [id number] Univers 11:00:00 11:00:00 TRISTAN lazaro [facility] 2022-09-29 2022-09-29 Urgent Bryson Dave [facility] 1.2.840.114 [id number] Univers 20:00:00 20:20:00 Care Unknown, Attending HEALTH 350.1.13.10 [facility] 4.2.7.2.686 Yogesh as ANN?BLEA [id number] [address] MEDICAL OFFICE BUILDING 2022-09-29 2022-09-29 Outpatient R GALE [facility] [id number] Univers 20:00:00 20:00:00 BRYSON ity [facility] 2022-07-04 2022-07-04 Outpatient R KING DINA, [facility] [id number] Univers 10:40:00 11:42:35 BENNIE ity [facility] 2022-07-04 2022-07-04 Urgent Bennie Dow [facility] 1.2.840.114 [id number] Univers 10:40:00 11:00:00 Care Unknown, Attending HEALTH 350.1.13.10 ity [facility] 4.2.7.2.686 Yogesh as ANN?BLEA [id number] [facility] [address] MEDICAL OFFICE BUILDING 2022-05-08 2022-05-08 Letter ALYSA Sargent 1.2.840.114 [id number] Univers 00:00:00 00:00:00 (Out) Fernanda MUSTAFAY 350.1.13.10 it y of HOSPITAL 4.2.7.2.686 Yogesh as [id number] [address] 2022-05-07 2022-05-07 [facility] [id number] [id number] Univers 11:02:14 23:59:00 Encounter Shinta HEALTH 350.1.13.10 ity [facility] 4.2.7.2.686 Yogesh as ANN?BLEA [id number] [facility] [address] MEDICAL OFFICE [facility] 2022-05-07 2022-05-07 Outpatient R MAYUR, [facility] [id number] Univers 10:20:00 11:40:39 SHINHELGA henrietta [facility] 2022-05-07 2022-05-07 Urgent Graham Merchant [facility] 1.2.840.11 [id number] Univers 10:20:00 11:40:39 Care Unknown, Attending HEALTH 350.1.13.10 ity [facility] 4.2.7.2.686 Yogesh as ANN?BLEA [id number] [facility] [address] MEDICAL OFFICE BUILDING 2021-12-11 2021-12-18 [facility] Shane Pro [facility] [id number] [facility] 03:34:00 15:16:00 Encounter [facility] 2021-12-11 2021-12-18 [facility] [id number] [facility] 03:34:00 15:16:00 [facility] 2021-12-17 2021-12-17 Surgery Dion Dow [facility] [id number] 10:30:00 13:23:00 B [facility] 2021-12-17 2021-12-17 Anesthesia Amadou Randlen [facility] [id number] [facility] 10:48:00 13:05:00 Event Thayer [facility] 2021-11-06 2021-11-06 Emergency [facility] [id number] Univers 09:30:00 13:05:00 AYE [facility] 2021-11-06 2021-11-06 Emergency [facility] [id number] [id number] Univers 09:30:00 13:05:00 Aye [place] 350.1.13.10 i ty of [place] 4[place]2.7.2.[place] [id number] [facility] [address] 2021-11-06 2021-11-06 Orders Doctor ALYSA 1.2.840.114 [id number] Univers 00:00:00 00:00:00 Only Unassigned, ALLI 350.1.13.10 ity of [place] [facility] 4.2.7.2.686 Yogesh as [id number] [facility] [address] 2021-10-16 2021-10-16 [facility] 1.2.840.114 [id number] Univers 15:20:00 15:40:00 Care [facility] 350.1.13.10 it y of [place] 4.2.7.2.686 Yogesh as ANN?BLEA [id number] [address] MEDICAL OFFICE BUILDING 2021-10-16 2021-10-16 Outpatient R CLAY [facility] [id number] Univers 15:20:00 15:20:00 TRISTAN lazaro [facility] 2021-10-16 2021-10-16 Orders Doctor ALYSA 1.2.840.114 [id number] Univers 00:00:00 00:00:00 Only Unassigned, ALLI 350.1.13.10 ity of [place] [facility] 4.2.7.2.686 Yogesh as [id number] [address] 2021-06-03 2021-06-03 Outpatient [facility] [id number] Univers 13:20:00 15:39:32 FELIPA itFormerly [facility] 2021-06-03 2021-06-03 [facility] 1.2.708.422 [id number] Univers 13:20:00 13:40:00 [facility] 350.1.13.10 it y of [place] 4.2.7.2.686 Yogesh as ANN?BLEA [id number] [address] MEDICAL OFFICE [facility] 2021-05-07 2021-05-07 Outpatient [facility] [id number] Univers 19:00:00 19:13:51 LEANN itFormerly [facility] 2021-05-07 2021-05-07 [facility]gent [facility] 1.2.840.114 [id number] Univers 18:53:36 19:13:51 Care [facility] 350.1.13.10 it y of [place] 4.2.7.2.686 Yogesh as ANN?BLEA [id number] [address] MEDICAL OFFICE [facility] 2020-02-04 2020-02-04 Letter ALYSA Cifuentes 1.2.840.114 [id number] 00:00:00 00:00:00 (Out) Yesi [facility] 350.1.13.10 HOSPITAL 4.2.7.2.686 [id number] 2020-02-04 2020-02-04 Letter ALYSA Cifuentes 1.2.840.114 [id number] Univers 00:00:00 00:00:00 (Out) Yesi [facility] 350.1.13.10 it y of [facility] 4.2.7.2.686 Yogesh as [id number] [address] 2020-02-01 2020-02-01 Laboratory Lab, [facility] 1.2.840.114 [id number] 15:55:19 16:15:19 Only Fam Pob I Health 350.1.13.10 [place] 4.2.7.2.686 Professio [id number] nal [facility] 2020-02-01 2020-02-01 Laboratory Lab, Adc Fam Pob I [facility] 1.2. 840.114 [id number] Univers 15:55:19 16:15:19 Only Ivelisse, [facility] 350.1.13.10 ity of [place] 4.2.7.2.686 Yogesh as Professio [id number] Me dical [facility] [address] 2020-02-01 2020-02-01 Outpatient R [facility] [id number] Univers 16:00:00 16:00:00 [facility] Results Test Description Test Time Test Comments Results Result Comments Source POCT MOLECULAR FLU 2023-03-17 14:53:53 Test Item Value Reference Range Interpretation Comme nts POCT Molecular FluA (test code = 72843-8) Negative Negative POCT Molecular FluB (test code = 72869-9) Negative Negative Lab Interpretation (test code = 13589-8) Normal [facility] SARS-COV-2 ANTIGEN (BINAX NOW)2023-03-17 14:48:00 Test Item Value Reference Range Interpretation Comments POCT SARS-COV-2 ANTIGEN (test Not Detected Not Detected code = 29378-4) On board controls acceptable Yes with C Line (test code = 3574) Lab Interpretation (test code = Normal 33897-3) [facility] MOLECULAR [id number] 14:46:36 Test Item Value Reference Range Interpretation Comments POCT Molecular Strep (test code = Negative Negative 53785-3) Lab Interpretation (test code = Normal 26995-9) [facility] (NA, K, CL, CO2, GLUCOSE, BUN, CREATININE, CA)2023-02-18 04:06:53 Test Item Value Reference Range Interpretation Comments NA (test code = 137 mmol/L 135-145 9007713983) K (test code = 3.8 mmol/L 3.5-5.0 0079559796) CL (test code = 101 mmol/L 98-108 6255747653) CO2 TOTAL (test code = 27 mmol/L 23-31 9900664148) AGAP (test code = 9 2-16 9221146780) BUN (test code = 19 mg/dL 7-23 1835627515) GLUCOSE (test code = 95 mg/dL 70-110 4021813580) CREATININE (test code = 1.14 mg/dL 0.50-1.04 H 7617763524) CALCIUM (test code = 9.5 mg/dL 8.6-10.6 0160360332) eGFR (test code = 53.3 mL/min/1.73m2 6642008785) TONY (test code = TONY) Association of [...] tests). Lab Interpretation Abnormal (test code = 05654-2) [facility] WITH [id number] 03:53:51 Test Item Value Reference Range Interpretation Comments WBC (test code = 7.93 See_Comment [Automated message] 3890-2) The system [employer] generated this result transmitted ref erence range: 4.30 - 1 1.10 10*3/?L. The re ference range was not u sed to interpret this result as normal/abnor mal. RBC (test code = 4.16 See_Comment [Automated message] 789-8) The system [employer] generated this result transmitted ref erence range: 3.93 - 5 .25 10*6/?L. The re ference range was not u sed to interpret this result as normal/abnor mal. HGB (test code = 12.5 g/dL 11.6-15.0 718-7) HCT (test code = 38.4 % 35.7-45.2 4544-3) MCV (test code = 92.3 fL 80.6-95.5 787-2) MCH (test code = 30.0 pg 25.9-32.8 785-6) MCHC (test code = 32.6 g/dL 31.6-35.1 786-4) RDW-SD (test code 41.2 fL 39.0-49.9 = 24744-8) RDW-CV (test code 12.2 % 12.0-15.5 = 788-0) PLT (test code = 321 See_Comment [Automated message] 777-3) The system [employer] generated this result transmitted ref erence range: 166 - 35 8 10*3/?L. The re ference range was not u sed to interpret this result as normal/abnor mal. MPV (test code = 9.8 fL 9.5-12.9 79280-8) NRBC/100 WBC (test 0.0 See_Comment [Automat ed message] code = [id number]) The [employer] which generated this result transmitted ref erence range: 0.0 - 10 .0 /100 WBCs. The refer ence range was not u sed to interpret this result as normal/abnor mal. NRBC x10^3 (test See_Comment [Automated message] code = [id number]) The syste m which generated this result transmitted ref erence range: 10*3/?L. The reference range was not used to interpr et this result as normal/abnormal . GRAN MAT (NEUT) % 53.3 % (test code = 770-8) IMM GRAN % (test 0.30 % code = [id number]) LYMPH % (test code 32.5 % = 736-9) MONO % (test code 10.1 % = 5905-5) EOS % (test code = 3.3 % 713-8) BASO % (test code 0.5 % = 706-2) GRAN MAT 4.23 10*3/uL 1.88-7.09 x10^3(ANC) (test code = 8272778131) IMM GRAN x10^3 0.00-0.06 (test code = 8422732176) LYMPH x10^3 (test 2.58 10*3/uL 1.32-3.29 code = 731-0) MONO x10^3 (test 0.80 10*3/uL 0.33-0.92 code = 742-7) EOS x10^3 (test 0.26 10*3/uL 0.03-0.39 code = 711-2) BASO x10^3 (test 0.04 10*3/uL 0.01-0.07 code = 704-7) [id number] 03:15:00 Test Item Value Reference Range Interpretation Comments POCT PREG (test code = 1605) Negative On board controls acceptable with Yes C Line (test code = 3574) POCT PREG LOT # (test code = 3575) [id number] POCT PREG TEST DATE (test 06-11-2024 code = 3576) Lab Interpretation (test code = Normal 03844-7) [facility] 2 OR 3 [id number] 11:50:04[facility]NE : 1985 Sex: FRadiographs of the lumbar spineHISTORY: Pain. Prior surgeryCOMPARISON: December 13, 2022 FINDINGS:Bones:Noacute displaced fracture. Osseous alignment is within normal limits.The patient has undergone discectomy and vertebral body spacer placementat L4-L5 with transpedicular screw and posterior deysi fusion at L4- L5.The surgical hardware is intact without evidence of failure orloosening.IMPRESSION:The patient has undergone discectomy and vertebral body spacer placementat L4-L5 with transpedicular screw and posterior deysi fusion at L4-L5.The surgical hardware is intact without evidence of failure orloosening. Electronically Signed By: Barron Oakley01/23/2023 11:52 CDTWorkstation Name: [id number] METABOLIC [id number] 11:44:58 Test Item Value Reference Range Interpretation Comments SODIUM (BEAKER) 137 meq/L 136-145 (test code = 381) POTASSIUM 3.6 meq/L 3.5-5.1 (BEAKER) (test code = 379) CHLORIDE (BEAKER) 101 meq/L 98-107 (test code = 382) CO2 (BEAKER) 27 meq/L 22-29 (test code = 355) BLOOD UREA 7 mg/dL 7-21 NITROGEN (BEAKER) (test code = 354) CREATININE 0.75 mg/dL 0.57-1.25 (BEAKER) (test code = 358) GLUCOSE RANDOM 97 mg/dL 70-105 (BEAKER) (test code = 652) CALCIUM (BEAKER) 8.9 mg/dL 8.4-10.2 (test code = 697) EGFR (BEAKER) 104 Interpretatio n of eGFR (test code = [...] not as accur ate as Creatinine Darcie bruce in predicting glom erular filtration rate . Estimated GFR is not appl icable for dialysis patien ts Journalism Teacher ID - MARCOCBC W/PLT COUNT & AUTO [id number] 10:26:50 Test Item Value Reference Range Interpretation [...] 2801) XR LUMBAR SPINE 2 OR 3 [id number] 01:53:34 [facility] : 1985 Sex: FCLINICAL HISTORY: standingCOMPARISON: None.FINDINGS:3 upright images of the lumbar spine are submitted.The patient has undergone discectomy and antibody spacer placement atL4-L5 with transpedicular screw and posterior deysi fusion at L4-L5. Thehardware appears appropriately positioned and the fused levels appearappropriately aligned.Electronically Signed By: Fortino Sun12/14/2022 01:55 CDTWorkstation Na me: [id number] METABOLIC [id number] 04:29:54 Test Item Value Reference Range Interpretation [...] 30-44 G4 Severl y decreased 15-29 G5 Kidne y failure <15Reported eGF R is based on the CKD-EPI 2020 equation that d oes not use a race coefficientEsti mated GFR is not as accur ate as Creatinine Darcie bruce in predicting glom erular filtration rate . Estimated GFR is not appl icable for dialysis patien ts Journalism Teacher ID - ADMINCBC (HEMOGRAM ONLY)2022-12-13 03:34:12 Test [...] 413) FL FLUORO NON-SPECIFIC UP TO 1 [id number] 15:10:19 [facility] : 1985 Sex: FTECHNIQUE: FL FLUORO NON-SPECIFIC UP TO 1 HOURINDICATION: alif l5/s1 FLUOROGRAPHY.COMPARISON: None.FINDINGS:Single spot fluoroscopic image of the lower lumbar spine performed inthe lateral projection demonstrates a needle projecting over the L5/S1disc. Total fluoroscopy time one second. Hemostat projects anterior tothe sacral promontory.IMPRESSION:Intraoperative localization, as above.Electronically Si gned By: Jaiden Connor12/12/2022 15:12 CDTWorkstation Name: [id number] , [id number] 11:57:00 Test Item Value Reference Range Interpretation Comments Test Urine, POC (test Negative code = 8515709) Control line present?, POC (test Yes code = 6357853) Background clear?, POC (test code Yes = 1924264) UPT Cassette Lot #, POC (test code 856113 = 0967326) UPT Cassette Expiration Date, POC 12-24-2023 (test code = 8428271) [facility] , [id number] 11:57:00 Test Item Value Reference Range Interpretation Comments Test Urine, POC (test Negative code = 2803111) Control line present?, POC (test Yes code = 8070263) Background clear?, POC (test code Yes = 6184616) UPT Cassette Lot #, POC (test code 480915 = 9821266) UPT Cassette Expiration Date, POC 12-24-2023 (test code = 3311665) [facility] , [id number] 11:57:00 Test Item Value Reference Range Interpretation Comments Test Urine, POC (test Negative code = 2625177) Control line present?, POC (test Yes code = 7513120) Background clear?, POC (test code Yes = 4500477) UPT Cassette Lot #, POC (test code 144660 = 9856274) UPT Cassette Expiration Date, POC 12-24-2023 (test code = 3362230) [facility] , [id number] 11:57:00 Test Item Value Reference Range Interpretation Comments Test Urine, POC (test Negative code = 5233552) Control line present?, POC (test Yes code = 2787963) Background clear?, POC (test code Yes = 1044116) UPT Cassette Lot #, POC (test code 870273 = 9336079) UPT Cassette Expiration Date, POC 12-24-2023 (test code = 8935690) [facility] , [id number] 11:57:00 Test Item Value Reference Range Interpretation Comments Test Urine, POC (test Negative code = 5553966) Control line present?, POC (test Yes code = 1038709) Background clear?, POC (test code Yes = 7597062) UPT Cassette Lot #, POC (test code 198248 = 6358715) UPT Cassette Expiration Date, POC 12-24-2023 (test code = 9434037) [facility] , [id number] 11:57:00 Test Item Value Reference Range Interpretation Comments Test Urine, POC (test Negative code = 6544232) Control line present?, POC (test Yes code = 9174356) Background clear?, POC (test code Yes = 2036276) UPT Cassette Lot #, POC (test code 837242 = 5367997) UPT Cassette Expiration Date, POC 12-24-2023 (test code = 4225932) [facility] , [id number] 11:57:00 Test Item Value Reference Range Interpretation Comments Test Urine, POC (test Negative code = 7442338) Control line present?, POC (test Yes code = 7897734) Background clear?, POC (test code Yes = 2739525) UPT Cassette Lot #, POC (test code 970465 = 4908877) UPT Cassette Expiration Date, POC 12-24-2023 (test code = 5741256) [facility] UCLAXR CHEST 2 [id number] 00:41:33 [facility] : 1985 Sex: FEXAMINATION: XR CHEST 2 VIEWS INDICATION: preopCOMPARISON: CXR 12/15/2021 FINDINGS:LINES/TUBES: None LUNGS: The lungs are well inflated. No focal airspace consolidation.PLEURA: No pleural effusion or pneumothorax.MEDIASTINUM: The cardiomediastinal silhouette appears normal in size andshape.BONES/SOFT TISSUES: No acute osseous injury.ABDOMEN: No free air under the diaphragm.IMPRESSION:No acute intrathorac ic abnormality.Electronically Signed By: Sridhar Sun12/07/2022 00:43 CDTWorkstation Name: [id number] METABOLIC [id number] 11:35:31 Test Item Value Reference Range Interpretation [...] high >=90 G2 Mildly decreased 60-89 G3a Mild ly to moderately 45-5 9 G3b Moderately to s everely 30-44 G4 Severl y decreased 15-29 G5 Kidney failure <15Reported eGF R is based on the CKD-EPI 2020 equation that d oes not use a race coefficientEsti mated GFR is not as accur ate as Creatinine Darcie bruce in predicting glom erular filtration rate . Estimated GFR is not appl icable for dialysis patien ts Journalism Teacher ID - [id number] 11:33:32 Test Item Value Reference Range Interpretation Comments PROTIME (BLAZE) (test code = 13.8 seconds 11.9-14.2 759) INR (BLAZE) (test code = 370) 1.13 <=5.90 PARTIAL THROMBOPLASTIN TIME 27.5 seconds 22.5-36.0 (BEAKER) (test code = 760) RECOMMENDED COUMADIN/WARFARIN INR THERAPY RANGESSTANDARD DOSE: 2.0 - 3.0 Includes: PROPHYLAXIS for venous thrombosis, systemic embolization; TREATMENT for venous thrombosis and/or pulmonary embolus.HIGH RISK: Target INR is 2.5-3.5 for patients with mechanical heart valves.Urinalysis w/Microscopic + Reflex to [id number] 11:21:58 Test Item Value Reference Range Interpretation Comments Color, UA (test code Light Yellow = 5778-6) Clarity, UA (test Clear code = 5767-9) Specific [place], UA 1.014 1.001-1.035 (test code = 5811-5) pH, UA (test code = 6.5 5.0-8.0 5803-2) Protein, UA (test Negative Negative code = 19782-2) Glucose, UA (test Negative Negative code = 365) Ketones, UA (test Negative Negative code = 2514-8) Bilirubin, UA (test Negative Negative code = 65439-6) Blood, UA (test code Trace Negative A = 70907-5) Nitrite, UA (test Negative Negative code = 5802-4) Leukocytes, UA (test Negative Negative code = 5799-2) Urobilinogen, UA 0.2 0.2-1.0 (test code = 59798-0) RBC, UA (test code = See_Comment [Autom ated 20740-2) message] The system which generated this result [...] UA See_Comment [Automate d (test code = 38427-6) messag e] The system which generated this result transmit [place] reference range : /HPF. The reference range was not used to interpret this result as normal/abnormal . Specimen Source (test code = 2795) TONY (test code = TONY) Journalism Teacher ID - [auto]Journalism Teacher ID - tech Lab Interpretation Abnormal (test code = 19562-5) [facility]/Microscopic + Reflex to Culture 2022-12-06 11:21:58 Test Item Value Reference Range Interpretation Comments Color, UA (test code Light Yellow = 5778-6) Clarity, UA (test Clear code = 5767-9) Specific [place], UA 1.014 1.001-1.035 (test code = 5811-5) pH, UA (test code = 6.5 5.0-8.0 5803-2) Protein, UA (test Negative Negative code = 90636-5) Glucose, UA (test Negative Negative code = 365) Ketones, UA (test Negative Negative code = 2514-8) Bilirubin, UA (test Negative Negative code = 50247-7) Blood, UA (test code Trace Negative A = 63090-3) Nitrite, UA (test Negative Negative code = 5802-4) Leukocytes, UA (test Negative Negative code = 5799-2) Urobilinogen, UA 0.2 0.2-1.0 (test code = 21934-6) RBC, UA (test code = See_Comment [Autom ated 28783-7) message] The system which generated this result [...] UA See_Comment [Automate d (test code = 04411-2) messag e] The system which generated this result transmit [place] reference range : /HPF. The reference range was not used to interpret this result as normal/abnormal . Specimen Source (test code = 2795) TONY (test code = TONY) Journalism Teacher ID - [auto]Journalism Teacher ID - tech Lab Interpretation Abnormal (test code = 45520-1) [facility] w/Microscopic + Reflex to Culture 2022-12-06 11:21:58 Test Item Value Reference Range Interpretation Comments Color, UA (test code Light Yellow = 5778-6) Clarity, UA (test Clear code = 5767-9) Specific [place], UA 1.014 1.001-1.035 (test code = 5811-5) pH, UA (test code = 6.5 5.0-8.0 5803-2) Protein, UA (test Negative Negative code = 89359-9) Glucose, UA (test Negative Negative code = 365) Ketones, UA (test Negative Negative code = 2514-8) Bilirubin, UA (test Negative Negative code = 47632-8) Blood, UA (test code Trace Negative A = 43961-5) Nitrite, UA (test Negative Negative code = 5802-4) Leukocytes, UA (test Negative Negative code = 5799-2) Urobilinogen, UA 0.2 0.2-1.0 (test code = 31807-8) RBC, UA (test code = See_Comment [Autom ated 13979-4) message] The system which generated this result [...] UA See_Comment [Automate d (test code = 32878-0) messag e] The system which generated this result transmit [place] reference range : /HPF. The reference range was not used to interpret this result as normal/abnormal . Specimen Source (test code = 2795) TONY (test code = TONY) Journalism Teacher ID - [auto]Journalism Teacher ID - tech Lab Interpretation Abnormal (test code = 53380-2) [facility] w/Microscopic + Reflex to Culture 2022-12-06 11:21:58 Test Item Value Reference Range Interpretation Comments Color, UA (test code Light Yellow = 5778-6) Clarity, UA (test Clear code = 5767-9) Specific [place], UA 1.014 1.001-1.035 (test code = 5811-5) pH, UA (test code = 6.5 5.0-8.0 5803-2) Protein, UA (test Negative Negative code = 88229-6) Glucose, UA (test Negative Negative code = 365) Ketones, UA (test Negative Negative code = 2514-8) Bilirubin, UA (test Negative Negative code = 64409-8) Blood, UA (test code Trace Negative A = 73371-6) Nitrite, UA (test Negative Negative code = 5802-4) Leukocytes, UA (test Negative Negative code = 5799-2) Urobilinogen, UA 0.2 0.2-1.0 (test code = 58676-1) RBC, UA (test code = See_Comment [Autom ated 70394-9) message] The system which generated this result [...] UA See_Comment [Automate d (test code = 36927-0) messag e] The system which generated this result transmit [place] reference range : /HPF. The reference range was not used to interpret this result as normal/abnormal . Specimen Source (test code = 2795) TONY (test code = TONY) Journalism Teacher ID - [auto]Journalism Teacher ID - tech Lab Interpretation Abnormal (test code = 27786-6) [facility] w/Microscopic + Reflex to Culture 2022-12-06 11:21:58 Test Item Value Reference Range Interpretation Comments Color, UA (test code Light Yellow = 5778-6) Clarity, UA (test Clear code = 5767-9) Specific [place], UA 1.014 1.001-1.035 (test code = 5811-5) pH, UA (test code = 6.5 5.0-8.0 5803-2) Protein, UA (test Negative Negative code = 79261-4) Glucose, UA (test Negative Negative code = 365) Ketones, UA (test Negative Negative code = 2514-8) Bilirubin, UA (test Negative Negative code = 28261-0) Blood, UA (test code Trace Negative A = 64432-7) Nitrite, UA (test Negative Negative code = 5802-4) Leukocytes, UA (test Negative Negative code = 5799-2) Urobilinogen, UA 0.2 0.2-1.0 (test code = 47159-3) RBC, UA (test code = See_Comment [Autom ated 31036-4) message] The system which generated this result [...] UA See_Comment [Automate d (test code = 71368-5) messag e] The system which generated this result transmit [place] reference range : /HPF. The reference range was not used to interpret this result as normal/abnormal . Specimen Source (test code = 2795) TONY (test code = TONY) Journalism Teacher ID - [auto]Journalism Teacher ID - tech Lab Interpretation Abnormal (test code = 12266-5) [facility]/Microscopic + Reflex to Culture 2022-12-06 11:21:58 Test Item Value Reference Range Interpretation Comments Color, UA (test code Light Yellow = 5778-6) Clarity, UA (test Clear code = 5767-9) Specific [place], UA 1.014 1.001-1.035 (test code = 5811-5) pH, UA (test code = 6.5 5.0-8.0 5803-2) Protein, UA (test Negative Negative code = 51125-9) Glucose, UA (test Negative Negative code = 365) Ketones, UA (test Negative Negative code = 2514-8) Bilirubin, UA (test Negative Negative code = 26970-3) Blood, UA (test code Trace Negative A = 67763-9) Nitrite, UA (test Negative Negative code = 5802-4) Leukocytes, UA (test Negative Negative code = 5799-2) Urobilinogen, UA 0.2 0.2-1.0 (test code = 56087-4) RBC, UA (test code = See_Comment [Autom ated 00072-0) message] The system which generated this result [...] UA See_Comment [Automate d (test code = 19621-1) messag e] The system which generated this result transmit [place] reference range : /HPF. The reference range was not used to interpret this result as normal/abnormal . Specimen Source (test code = 2795) TONY (test code = TONY) Journalism Teacher ID - [auto]Journalism Teacher ID - tech Lab Interpretation Abnormal (test code = 44981-9) [facility] w/Microscopic + Reflex to Culture 2022-12-06 11:21:58 Test Item Value Reference Range Interpretation Comments Color, UA (test code Light Yellow = 5778-6) Clarity, UA (test Clear code = 5767-9) Specific [place], UA 1.014 1.001-1.035 (test code = 5811-5) pH, UA (test code = 6.5 5.0-8.0 5803-2) Protein, UA (test Negative Negative code = 42452-4) Glucose, UA (test Negative Negative code = 365) Ketones, UA (test Negative Negative code = 2514-8) Bilirubin, UA (test Negative Negative code = 59325-9) Blood, UA (test code Trace Negative A = 61326-4) Nitrite, UA (test Negative Negative code = 5802-4) Leukocytes, UA (test Negative Negative code = 5799-2) Urobilinogen, UA 0.2 0.2-1.0 (test code = 75416-1) RBC, UA (test code = See_Comment [Autom ated 97515-4) message] The system which generated this result [...] UA See_Comment [Automate d (test code = 12476-4) messag e] The system which generated this result transmit [place] reference range : /HPF. The reference range was not used to interpret this result as normal/abnormal . Specimen Source (test code = 2795) TONY (test code = TONY) Journalism Teacher ID - [auto]Journalism Teacher ID - tech Lab Interpretation Abnormal (test code = 12412-5) [facility] w/Microscopic + Reflex to Culture 2022-12-06 11:21:58 Test Item Value Reference Range Interpretation Comments Color, UA (test code Light Yellow = 5778-6) Clarity, UA (test Clear code = 5767-9) Specific [place], UA 1.014 1.001-1.035 (test code = 5811-5) pH, UA (test code = 6.5 5.0-8.0 5803-2) Protein, UA (test Negative Negative code = 43430-4) Glucose, UA (test Negative Negative code = 365) Ketones, UA (test Negative Negative code = 2514-8) Bilirubin, UA (test Negative Negative code = 83581-8) Blood, UA (test code Trace Negative A = 23080-1) Nitrite, UA (test Negative Negative code = 5802-4) Leukocytes, UA (test Negative Negative code = 5799-2) Urobilinogen, UA 0.2 0.2-1.0 (test code = 60253-8) RBC, UA (test code = See_Comment [Autom ated 45344-6) message] The system which generated this result [...] UA See_Comment [Automate d (test code = 48372-2) messag e] The system which generated this result transmit [place] reference range : /HPF. The reference range was not used to interpret this result as normal/abnormal . Specimen Source (test code = 2795) TONY (test code = TONY) Journalism Teacher ID - [auto]Journalism Teacher ID - tech Lab Interpretation Abnormal (test code = 79368-3) [facility] REFLEX URINE [id number] 11:21:58 Test Item Value Reference Range Interpretation [...] code = 516) SOURCE(BEAKER) (test code = 2795) Journalism Teacher ID - [auto]Journalism Teacher ID - techPregnancy Screen, [id number] 11:19:27 Test Item Value Reference Range Interpretation Comments Preg Test, Ur (test code = 2-1) Negative Negative Lab Interpretation (test code = Normal 82097-5) [facility] [id number] 11:19:27 Test Item Value Reference Range Interpretation Comments Preg Test, Ur (test code = 2111-1) Negative Negative Lab Interpretation (test code = Normal 05230-9) [facility], [id number] 11:19:27 Test Item Value Reference Range Interpretation Comments Preg Test, Ur (test code = 2-1) Negative Negative Lab Interpretation (test code = Normal 98149-3) [facility], [id number] 11:19:27 Test Item Value Reference Range Interpretation Comments Preg Test, Ur (test code = 2-1) Negative Negative Lab Interpretation (test code = Normal 55209-3) [facility]regnancy [facility], [id number] 11:19:27 Test Item Value Reference Range Interpretation Comments Preg Test, Ur (test code = 2-1) Negative Negative Lab Interpretation (test code = Normal 22099-2) [facility]CLAPregnancy Screen, [id number] 11:19:27 Test Item Value Reference Range Interpretation Comments Preg Test, Ur (test code = 2-1) Negative Negative Lab Interpretation (test code = Normal 72332-5) [facility]APregnancy [facility], [id number] 11:19:27 Test Item Value Reference Range Interpretation Comments Preg Test, Ur (test code = 2-1) Negative Negative Lab Interpretation (test code = Normal 62029-6) [facility]APregnancy [facility], [id number] 11:19:27 Test Item Value Reference Range Interpretation Comments Preg Test, Ur (test code = 2112-1) Negative Negative Lab Interpretation (test code = Normal 34273-6) [facility]APREGNANCY SCREEN, [id number] 11:19:27 Test Item Value Reference Range Interpretation Comments TEST URINE (BEAKER) (test Negative Negative code = 583) CBC W/PLT COUNT & AUTO [id number] 11:14:26 Test Item Value Reference Range Interpretation [...] code = 2801) POCT URINALYSIS W SPECIFIC [id number] 19:01:00 Test Item Value Reference Range Interpretation [...] controls Lab Interpretation Abnormal (test code = 85760-2) [facility] URINALYSIS W SPECIFIC [id number] 19:01:00 Test Item Value Reference Range Interpretation [...] U APPEAR (test clear code = 3267) OTNY (test code = TONY) accurate development and interpretation of all internal controls Lab Interpretation Abnormal (test code = 44553-5) [facility] METABOLIC PANEL (NA, K, CL, CO2, GLUCOSE, BUN, CREATININE, CA)2022-12-03 23:14:33 Test Item Value Reference Range Interpretation Comments NA (test code = 141 mmol/L 135-145 1738863205) K (test code = 3.8 mmol/L 3.5-5.0 7098868821) CL (test code = 104 mmol/L 98-108 9286117055) CO2 TOTAL (test code 23 mmol/L 23-31 = 9373466138) AGAP (test code = 14 2-16 0433806409) BUN (test code = 10 mg/dL 7-23 4682522619) GLUCOSE (test code = 88 mg/dL 70-110 7620571401) CREATININE (test code 0.72 mg/dL 0.50-1.04 = 5038023883) CALCIUM (test code = 9.6 mg/dL 8.6-10.6 7303503379) eGFR (test code = 90.7 mL/min/1.73m2 8283324293) TONY (test code = TONY) Association of [...] or urine or abnormalities in imaging tests). [facility] WITH [id number] 23:02:32 Test Item Value Reference Range Interpretation Comments WBC (test code = 7.72 See_Comment [Automated message] 6590-2) The system [employer] generated this result transmitted ref erence range: 4.30 - 1 1.10 10*3/?L. The re ference range was not u sed to interpret this result as normal/abnor mal. RBC (test code = 4.45 See_Comment [Automated message] 549-8) The system [employer] generated this result transmitted ref erence range: [...] RDW-SD (test code 39.9 fL 39.0-49.9 = 67976-9) RDW-CV (test code 12.4 % 12.0-15.5 = 788-0) PLT (test code = 294 See_Comment [Automated message] 777-3) The system whic h generated this result transmitted ref erence range: 166 - 35 8 10*3/?L. The re ference range was not u sed to interpret this result as normal/abnor mal. MPV (test code = 9.6 fL 9.5-12.9 30399-0) NRBC/100 WBC (test 0.0 See_Comment [Automat ed message] code = 4341812697) The syste m which generated this result transmitted ref erence range: 0.0 - 10 .0 /100 WBCs. The refer ence range was not u sed to interpret this result as normal/abnor mal. NRBC x10^3 (test See_Comment [Automated message] code = 5199094496) The syste m which generated this result transmitted ref erence range: 10*3/?L. The reference range was not used to interpr et this result as normal/abnormal . GRAN MAT (NEUT) % 68.5 % (test code = 770-8) IMM GRAN % (test 0.30 % code = 0825775577) LYMPH % (test code 18.8 % = 736-9) MONO % (test code 9.7 % = 5905-5) EOS % (test code = 2.1 % 713-8) BASO % (test code 0.6 % = 706-2) GRAN MAT 5.29 10*3/uL 1.88-7.09 x10^3(ANC) (test code = 2566487297) IMM GRAN x10^3 0.00-0.06 (test code = 8417571283) LYMPH x10^3 (test 1.45 10*3/uL 1.32-3.29 code = 731-0) MONO x10^3 (test 0.75 10*3/uL 0.33-0.92 code = 742-7) EOS x10^3 (test 0.16 10*3/uL 0.03-0.39 code = 711-2) BASO x10^3 (test 0.05 10*3/uL 0.01-0.07 code = 704-7) [facility]OL[facility] (87068)2022-11-18 21:21:41 Test Item Value Reference Range Interpretation Comments NA (test code = 138 mmol/L 135-145 1312808368) K (test code = 4.2 mmol/L 3.5-5.0 6652340395) CL (test code = 102 mmol/L 98-108 3495240747) CO2 TOTAL (test code 25 mmol/L 23-31 = 0209478185) AGAP (test code = 11 2-16 0537425164) BUN (test code = 11 mg/dL 7-23 3883518882) GLUCOSE (test code = 93 mg/dL 70-110 1840264261) CREATININE (test code 0.75 mg/dL 0.50-1.04 = 4063655387) TOTAL BILI (test code 1.1 mg/dL 0.1-1.1 = 1310493129) CALCIUM (test code = 9.8 mg/dL 8.6-10.6 0846740811) T PROTEIN (test code 7.7 g/dL 6.3-8.2 = 0128175481) ALBUMIN (test code = 4.8 g/dL 3.5-5.0 7685418997) ALK PHOS (test code = 46 U/L 34-122 3309341401) ALTv (test code = 19 U/L 5-35 1742-6) AST(SGOT) (test code 26 U/L 13-40 = 3661482537) eGFR (test code = 86.5 mL/min/1.73m2 4920700146) TONY (test code = TONY) Association of [...] or urine or abnormalities in imaging tests). [facility] WITH [id number] 21:09:01 Test Item Value Reference Range Interpretation Comments WBC (test code = 9.24 See_Comment [Automated message] 3490-2) The system [employer] generated this result transmitted ref erence range: 4.30 - 1 1.10 10*3/?L. The re ference range was not u sed to interpret this result as normal/abnor mal. RBC (test code = 4.62 See_Comment [Automated message] 899-8) The system [employer] generated this result transmitted ref erence range: [...] RDW-SD (test code 39.9 fL 39.0-49.9 = 81667-3) RDW-CV (test code 12.6 % 12.0-15.5 = 788-0) PLT (test code = 317 See_Comment [Automated message] 777-3) The system whic h generated this result transmitted ref erence range: 166 - 35 8 10*3/?L. The re ference range was not u sed to interpret this result as normal/abnor mal. MPV (test code = 9.6 fL 9.5-12.9 00126-4) NRBC/100 WBC (test 0.0 See_Comment [Automat ed message] code = 2717275474) The syste m which generated this result transmitted ref erence range: 0.0 - 10 .0 /100 WBCs. The refer ence range was not u sed to interpret this result as normal/abnor mal. NRBC x10^3 (test See_Comment [Automated message] code = 7860395394) The syste m which generated this result transmitted ref erence range: 10*3/?L. The reference range was not used to interpr et this result as normal/abnormal . GRAN MAT (NEUT) % 61.8 % (test code = 770-8) IMM GRAN % (test 0.20 % code = 3238418422) LYMPH % (test code 27.6 % = 736-9) MONO % (test code 8.1 % = 5905-5) EOS % (test code = 1.7 % 713-8) BASO % (test code 0.6 % = 706-2) GRAN MAT 5.70 10*3/uL 1.88-7.09 x10^3(ANC) (test code = 7364374557) IMM GRAN x10^3 0.00-0.06 (test code = 9187094197) LYMPH x10^3 (test 2.55 10*3/uL 1.32-3.29 code = 731-0) MONO x10^3 (test 0.75 10*3/uL 0.33-0.92 code = 742-7) EOS x10^3 (test 0.16 10*3/uL 0.03-0.39 code = 711-2) BASO x10^3 (test 0.06 10*3/uL 0.01-0.07 code = 704-7) [facility] [id number] 20:55:00 Test Item Value Reference Range Interpretation Comments POCT PREG (test code = 1605) Negative On board controls acceptable with Yes C Line (test code = 3574) POCT PREG LOT # (test code = 3575) [id number] POCT PREG TEST DATE (test 03-14-2024 code = 3576) Lab Interpretation (test code = Normal 07316-9) [facility] SARS-COV-2 ANTIGEN (BINAX NOW)2022-07-04 17:22:00 Test Item Value Reference Range Interpretation Comments POCT SARS-COV-2 ANTIGEN Not Detected Not Detected (test code = 82275-9) On board controls Yes acceptable with C Line (test code = 3574) TONY (test code = TONY) accurate development and interpretation of all internal controls Lab Interpretation Normal (test code = 84667-9) [facility] MOLECULAR [id number] 17:21:56 Test Item Value Reference Range Interpretation Comments POCT Molecular FluA (test code = Negative Negative 05996-8) POCT Molecular FluB (test code = Negative Negative 46689-0) Lab Interpretation (test code = Normal 83625-4) [facility] MOLECULAR [id number] 17:15:24 Test Item Value Reference Range Interpretation Comments POCT Molecular Strep (test code = Negative Negative 46254-3) Lab Interpretation (test code = Normal 91990-9) [facility] MOLECULAR [id number] 17:14:43 Test Item Value Reference Range Interpretation Comments POCT Molecular FluB (test code = Positive Negative A 53485-1) Lab Interpretation (test code = Abnormal 36161-0) [facility] [id number] 05:11:01 Test Item Value Reference Range Interpretation Comments SODIUM (BEAKER) 137 meq/L 136-145 (test code = 381) POTASSIUM (BEAKER) 4.4 meq/L 3.5-5.1 (test code = 379) CHLORIDE (BEAKER) 103 meq/L 98-107 (test code = 382) CO2 (BEAKER) (test 25 meq/L code = 355) BLOOD UREA NITROGEN 18 [...] S NOT APPLICABLE FOR DIALYSIS PATIEN TS. Journalism Teacher ID - PIAYA LCBC W/PLT COUNT & AUTO [id number] 04:55:58 Test Item Value Reference Range Interpretation [...] 2801) FL, FLUORO, NON-SPECIFIC, UP TO 1 [id number] 11:44:00Reason for exam:- >Lumbar disc herniation [facility] 1985 Sex: [...] Verified Date /Time: 12/17/2021 11:44:43 Reading Location: [facility] Radiology Reading Room C METABOLIC [id number] 05:14:37 Test Item Value Reference Range Interpretation [...] S NOT APPLICABLE FOR DIALYSIS PATIEN TS. Journalism Teacher ID - BENJAMIN WCBC W/PLT COUNT & AUTO [id number] 04:48:53 Test Item Value Reference Range Interpretation [...] SARS-Co V-2 (test code = target nucleic 52932-9) acids are not detected in thi s [...] revoked sooner. Fact Sheet for Healthcare Providers: https://www.Moove In/Documents/Xp ert%20Xpress%20SAR S%20CoV-2/Fact%20S heets/302-3802%20S ARS-COV-2%20HEALTH CARE%20PROVIDERS%2 0FACT%20SHEET.pdf Fact Sheet for Healthcare Patients: https://www.[employer]/Documents/Xp ert%20Xpress%20SAR S%20CoV-2/Fact%20S heets/302-3801%20S ARS-COV-2%20PATIEN T%20FACT%20SHEET.p df Lab Interpretation Normal (test code = 49408-8) [facility]2021-12-17 00:36:35 Test Item Value Reference Interpretation Comments Range SARS-COV2/RT-PCR Negative Negative The SARS-Co V-2 (test code = target nucleic 71456-9) acids are not detected in thi s [...] revoked sooner. Fact Sheet for Healthcare Providers: https://www.[employer]/Documents/Xp ert%20Xpress%20SAR S%20CoV-2/Fact%20S heets/302-3802%20S ARS-COV-2%20HEALTH CARE%20PROVIDERS%2 0FACT%20SHEET.pdf Fact Sheet for Healthcare Patients: https://www.[employer]/Documents/Xp ert%20Xpress%20SAR S%20CoV-2/Fact%20S heets/302-3801%20S ARS-COV-2%20PATIEN T%20FACT%20SHEET.p df Lab Interpretation Normal (test code = 34195-9) [facility]Asymptomatic ONLY)2021-12-17 00:36:35 Test Item Value Reference Interpretation Comments Range SARS-COV2/RT-PCR Negative Negative The SARS-Co V-2 (test code = target nucleic 43964-5) acids are not detected in thi s [...] revoked sooner. Fact Sheet for Healthcare Providers: https://www.[employer]/Documents/Xp ert%20Xpress%20SAR S%20CoV-2/Fact%20S heets/302-3802%20S ARS-COV-2%20HEALTH CARE%20PROVIDERS%2 0FACT%20SHEET.pdf Fact Sheet for Healthcare Patients: https://www.[employer]/Documents/Xp ert%20Xpress%20SAR S%20CoV-2/Fact%20S heets/302-3801%20S ARS-COV-2%20PATIEN T%20FACT%20SHEET.p df Lab Interpretation Normal (test code = 51417-8) [facility]Asymptomatic ONLY)2021-12-17 00:36:35 Test Item Value Reference Interpretation Comments Range SARS-COV2/RT-PCR Negative Negative The SARS-Co V-2 (test code = target nucleic 72375-2) acids are not detected in thi s [...] revoked sooner. Fact Sheet for Healthcare Providers: https://www.[employer]/Documents/Xp ert%20Xpress%20SAR S%20CoV-2/Fact%20S heets/302-3802%20S ARS-COV-2%20HEALTH CARE%20PROVIDERS%2 0FACT%20SHEET.pdf Fact Sheet for Healthcare Patients: https://www.[employer]/Documents/Xp ert%20Xpress%20SAR S%20CoV-2/Fact%20S heets/302-3801%20S ARS-COV-2%20PATIEN T%20FACT%20SHEET.p df Lab Interpretation Normal (test code = 03439-2) [facility]Asymptomatic ONLY)2021-12-17 00:36:35 Test Item Value Reference Interpretation Comments Range SARS-COV2/RT-PCR Negative Negative The SARS-Co V-2 (test code = target nucleic 79567-9) acids are not detected in thi s [...] revoked sooner. Fact Sheet for Healthcare Providers: https://www.[employer]/Documents/Xp ert%20Xpress%20SAR S%20CoV-2/Fact%20S heets/302-3802%20S ARS-COV-2%20HEALTH CARE%20PROVIDERS%2 0FACT%20SHEET.pdf Fact Sheet for Healthcare Patients: https://www.[employer]/Documents/Xp ert%20Xpress%20SAR S%20CoV-2/Fact%20S heets/302-3801%20S ARS-COV-2%20PATIEN T%20FACT%20SHEET.p df Lab Interpretation Normal (test code = 01524-1) [facility])2021-12-17 00:36:35 Test Item Value Reference Range Interpretation Comments SARS-COV2/RT-PCR Negative Negative The SARS-Co V-2 target (test code = nucleic acids a re not 0456617) detected in thi s specimen. Negative result [...] revoked sooner. Fact Sheet for Healthcare Providers: https://www.Corvil m/Documents/Xpert%20Xpress%20SARS%20CoV-2/Fact%20Sheets/302-3802%87XXQB-OFA-2%20 HEALTHCARE%20PROVIDERS%20FACT%20SHEET.pdf Fact Sheet for Healthcare Patients: https://www.[employer]Documents/Xpert%20Xp ress%20SARS%20CoV-2/Fact%20Sheets/3023801%36RWIZ-JTE-0%20PATIENT%20FACT%20SHEET .pdfPregnancy Screen, [id number] 12:02:43 Test Item Value Reference Range Interpretation Comments Preg Test, Ur (test code = 2112-1) Negative Negative Lab Interpretation (test code = Normal 44762-1) [facility], [id number] 12:02:43 Test Item Value Reference Range Interpretation Comments Preg Test, Ur (test code = 2112-1) Negative Negative Lab Interpretation (test code = Normal 27921-5) [facility], [id number] 12:02:43 Test Item Value Reference Range Interpretation Comments Preg Test, Ur (test code = 2112-1) Negative Negative Lab Interpretation (test code = Normal 88519-9) [facility] UCLAPreancy Screen, [id number] 12:02:43 Test Item Value Reference Range Interpretation Comments Preg Test, Ur (test code = 2112-1) Negative Negative Lab Interpretation (test code = Normal 52591-4) [facility], [id number] 12:02:43 Test Item Value Reference Range Interpretation Comments TEST URINE (BEAKER) (test Negative Negative code = 583) BASIC METABOLIC [id number] 04:38:33 Test Item Value Reference Range Interpretation [...] S NOT APPLICABLE FOR DIALYSIS PATIEN TS. Journalism Teacher ID - SETH MPT/[id number] 04:34:08 Test Item Value Reference Range Interpretation [...] mechanical heart valves.CBC W/PLT COUNT & AUTO [id number] 04:23:27 Test Item Value Reference Range Interpretation [...] = 2801) RAD, CHEST, 1 VIEW, NON [id number] 14:14:00Reason for exam:- >baselineShould this be performed at the bedside?->Yes [facility] 1985 Sex: FFINAL REPORT INDICATION: baseline COMPARISON: None TECHNIQUE: Single frontal view of the chest. FINDINGS: Lungs and pleura: Clear lungs. No effusion.Heart and mediastinum: Normal heart size. Unremarkable mediastinal contours.Osseous structures: No acute abnormality.Other: None. IMPRESSION: No acute intrathoracic abnormality. Signed: Felicia Salas MDReport Verified Date/Time: 12/15/2021 14:14:14 HEPATIC FUNCTION [id number] 05:23:41 Test Item Value Reference Range Interpretation [...] (test code = 27 U/L 6-55 347) Journalism Teacher ID - PIAYA LBASIC METABOLIC [id number] 05:23:40 Test Item Value Reference Range Interpretation [...] S NOT APPLICABLE FOR DIALYSIS PATIEN TS. Journalism Teacher ID - PIAYA LCBC W/PLT COUNT & AUTO [id number] 04:43:17 Test Item Value Reference Range Interpretation [...] SARS-COV2/RT-PCR ([facility])2021-12-12 02:29:42 Test Item Value Reference Range Interpretation Comments SARS-COV2/RT-PCR (test code = Negative Negative 9806199) Negative result for this test determines that [...] 564(g) of the Act.Testing was performed using Sanguine SARS-CoV-2 assay.Fact Sheet for Healthcare Providers:https://www.Hipmunk/major/RT SARS-CoV-2 HCP Fact Sheet 51- 846024.pdfFact Sheet for Healthcare Patients:https://www.LanternCRM.[employer] Software/major/RT SARS-CoV-2 Patient Fact Sheet EN 51-435508T1.pdfMR, SPINE, LUMBAR, WITHOUT [id number] 09:13:00Unlisted Reason for Exam - Click Yes and Enter Reason Below->YesUnlisted Reason for Exam->DischerniationDoes the patient have an implanted electronic device?->No [facility] : 1985 Sex: [...] MDReport Verified Date/Time: 12/11/2021 09:13:09 Reading Location: [facility] B1 C013V Neuro Reading [facility] MET[facility]OL[facility] (61223)2021-11-06 16:06:35 Test Item Value Reference Range Interpretation Comments NA (test code = 138 mmol/L 135-145 5552816292) K (test code = 4.2 mmol/L 3.5-5.0 6616151492) CL (test code = 102 mmol/L 98-108 0239414272) CO2 TOTAL (test code = 26 mmol/L 23-31 4144432196) AGAP (test code = 2-16 6641348994) BUN (test code = 6 mg/dL 7-23 L 4323266582) GLUCOSE (test code = 116 mg/dL 70-110 H 5629597088) CREATININE (test code = 0.62 mg/dL 0.50-1.04 0114451120) TOTAL BILI (test code = 0.7 mg/dL 0.1-1.2 2955380170) CALCIUM (test code = 9.5 mg/dL 8.6-10.6 1315478132) T PROTEIN (test code = 7.2 g/dL 6.3-8.2 6628335781) ALBUMIN (test code = 4.4 g/dL 3.5-5.0 0142271287) ALK PHOS (test code = 67 U/L 34-122 6110536159) ALTv (test code = 15 U/L 5-35 1742-6) AST(SGOT) (test code = 22 U/L 13-40 2454802290) eGFR (test code = mL/min/1.73m2 7649847995) TONY (test code = TONY) Association of [...] tests). Lab Interpretation Abnormal (test code = 99344-5) [facility] 16:06:15 Test Item Value Reference Range Interpretation Comments LIPASE (test code = 7325197402) 41 U/L 0-220 Lab Interpretation (test code = Normal 91713-7) [facility] Arlington[facility] WITH [id number] 15:51:56 Test Item Value Reference Range Interpretation Comments WBC (test code = See_Comment [Automated message] 6690-2) The system [employer] generated this result transmitted ref erence range: 4.30 - 1 1.10 10*3/?L. The re ference range was not u sed to interpret this result as normal/abnor mal. RBC (test code = See_Comment [Automated message] 789-8) The system [employer] generated this result transmitted ref erence range: [...] RDW-SD (test code 44.0 fL 39.0-49.9 = 81194-3) RDW-CV (test code 14.1 % 12.0-15.5 = 788-0) PLT (test code = See_Comment [Automated message] 777-3) The system [employer] generated this result transmitted ref erence range: 166 - 35 8 10*3/?L. The re ference range was not u sed to interpret this result as normal/abnor mal. MPV (test code = 10.0 fL 9.5-12.9 72159-6) NRBC/100 WBC (test See_Comment [Automat ed message] code = 4414122274) The syste m which generated this result transmitted ref erence range: 0.0 - 10 .0 /100 WBCs. The refer ence range was not u sed to interpret this result as normal/abnor mal. NRBC x10^3 (test <0.01 See_Comment [Automated message] code = 7377356683) The syste m which generated this result transmitted ref erence range: 10*3/?L. The reference range was not used to interpr et this result as normal/abnormal . GRAN MAT (NEUT) % 72.0 % (test code = 770-8) IMM GRAN % (test 0.40 % code = 8927213543) LYMPH % (test code 21.6 % = 736-9) MONO % (test code 4.9 % = 5905-5) EOS % (test code = 0.7 % 713-8) BASO % (test code 0.4 % = 706-2) GRAN MAT 4.82 10*3/uL 1.88-7.09 x10^3(ANC) (test code = 7504674058) IMM GRAN x10^3 0.03 10*3/uL 0.00-0.06 (test code = 6808760059) LYMPH x10^3 (test 1.45 10*3/uL 1.32-3.29 code = 731-0) MONO x10^3 (test 0.33 10*3/uL 0.33-0.92 code = 742-7) EOS x10^3 (test 0.05 10*3/uL 0.03-0.39 code = 711-2) BASO x10^3 (test 0.03 10*3/uL 0.01-0.07 code = 704-7) [facility] [id number] 15:17:00 Test Item Value Reference Range Interpretation Comments POCT PREG (test code = 1605) negative On board controls acceptable with present C Line (test code = 3574) POCT PREG LOT # (test code = 3575) [id number] POCT PREG TEST DATE (test 04/08/2023 code = 3576) Lab Interpretation (test code = Normal 59697-8) [facility] MOLECULAR [id number] 20:28:21 Test Item Value Reference Range Interpretation Comments POCT Molecular Strep (test code = Positive Negative A 75633-2) Lab Interpretation (test code = Abnormal 81217-3) [facility] [id number] 20:44:00 Test Item Value Reference Range Interpretation [...] = PHENCU) 25 ng/m L COMPREHENSIVE METABOLIC [id number] 16:55:00 Test Item Value Reference Range Interpretation [...] units/L 46-116 N code = ALKP) URIC [id number] 16:55:00 Test Item Value Reference Range Interpretation Comments URIC ACID (test code = URIC) 6.2 mg/dL 2.6-6.0 H LACTIC DEHYDROGENASE(LDH)2019-11-16 16:55:00 Test Item Value Reference Range Interpretation Comments LACTIC DEHYDROGENASE(LDH) (test 160 units/L 81-234 N code = LDH) UA RFLX MICR CULT IF [id number] 16:41:00 Test Item Value Reference Range Interpretation [...] SEEN Indication for culture: Suprapubic PainCBC W/AUTO [id number] 16:35:00 Test Item Value Reference Range Interpretation [...] NORMAL code = PLTMR) Coronavirus 2019 nCoV [id number] 11:09:00 Test Item Value Reference Range Interpretation Comments Coronavirus 2019 nCoV Negative Negative RESUL TS CALLED TO Bedside (test code = Adesuyi ,AREAD BACK & [id number]) CONFIRMED? yes BY FSilvanaLAB.[facility] 02/26 This result fountain s not rule out [...] UNDER AN EMERGENCY USE AUTHORIZATION F ROM [facility] COMPREHENSIVE METABOLIC [id number] 07:48:00 Test Item Value Reference Range Interpretation [...] 81 units/L 46-116 N code = ALKP) [id number] 07:48:00 Test Item Value Reference Range Interpretation Comments MAGNESIUM (test code = MAG) 2.7 mg/dL 1.8-2.4 H CBC W/AUTO [id number] 07:08:00 Test Item Value Reference Range Interpretation [...] NORMAL NORMAL code = PLTMR) B-TYPE NATRIURETIC [id number] 00:38:00 Test Item Value Reference Range Interpretation Comments B-TYPE NATRIURETIC PEPTIDE (test 542.13 pg/mL 0-100 H code = BNP) 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: Clean CatchSpecimen Comment: Clean Catch- CT HEAD/BRAIN W/O [id number] 00:31:00 Patient Name: FELICIA MCCANN Unit No: [id number] EXAMS: CPT CODE: [id number] CT HEAD/BRAIN W/O CONT 71731 CT HEAD WITHOUT CONTRAST DATED 10/16/2019. INDICATION: [...] 0031 Reported andsigned by: Jaiden Durham MD [facility] NAME: FELICIA MCCANN Radiology Department PHYS: Gian Kang [address] : 1985 AGE: 33 SEX: F [place] [address] LOC: Laurence.ERS PHONE #: [phone] EXAM DATE: 10/15/2019 STATUS: REG ER FAX #: [phone] RAD NO: Page 1 Signed Report 1 Patient Name: FELICIA MCCANN Unit No: [id number] EXAMS:CPT CODE: [id number] CT HEAD/BRAIN W/O CONT 26029 (Continued) CC: Sanna Hoffman Technologist: ROB RAO, CT, RT CTDI: 60.16 DLP: 1012.10 Trnscrbd D/ (0031) Bhavana [facility] NAME: FELICIA MCCANN Radiology Department PHYS: YVONNEGian Paiz [address] : 1985 AGE: 33 SEX: F [place] [address] LOC: DonovanERS PHONE #:[phone] EXAM DATE: 10/15/2019 STATUS: REG ER FAX #: [phone] RAD NO: Page 2 Signed Report 1Patient Name: FELICIA MCCANN Unit No: [id number] EXAMS: CPT CODE: [id number] CT HEAD/BRAIN W/O CONT 89871 (Continued) Orig Print D/T: S: 10/16/2019 (0034) [facility] NAME: FELICIA MCCANN Radiology Department PHYS: Gian Kang [address] : 1985 AGE: 33 SEX: F [place] [address] LOC: Laurence.ERS PHONE #: [phone] EXAM DATE: 10/15/2019 STATUS: REG ER FAX #: [phone] RAD NO: Page 3 Signed Report 1UR PROTEIN/CREATININE [id number] 00:23:00 Test Item Value Reference Range Interpretation Comments UR PROTEIN RANDOM (test code = 14.0 mg/dL PROTU) UR CREATININE RANDOM (test 74.0 mg/dL code = CREATU) PROTEIN/CREATININE RATIO (test 180.0 mg/gcrea <200 code = P/CRATIO) - XR CHEST 2 [id number] 00:16:00 Patient Name: FELICIA MCCANN Unit No: [id number] EXAMS: CPT CODE: [id number] XR CHEST 2 V 99905 EXAM:CR, XR chest 2 views: 10/15/2019, 2354 hours HISTORY: CHEST PAIN TECHNIQUE: Frontal and lateral chest radiographs are obtained. COMPARISON: None available. FINDINGS: Trachea is in midline. Heart is normal in size. Mild interstitial opacities in the right infrahilar lung.. No airspace consolidation, pneumothorax or pleural effusion is seen. Osseous structures are unremarkable. IMPRESSION: Mild interstitial opacities in the right infrahilar lung, probably vascular crowding or less likely atelectasis or interstitial infiltrates. SL:[JSYED-H] at 0016 Reported and signed by: Garrett Cabezas M.D. CC: Sanna Hoffman Technologist: RT Jarocho Trnscrbd D/ (0016) Mic.JS38 Orig Print D/T: S: 10/16/2019 (0019) [facility] NAME: FELICIA MCCANN Radiology Department PHYS: SIENNA Subramanian BrentGianmandy Grullonleighton [address] : 1985 AGE: 33 SEX: F [place], [place] [address] LOC: DonovanERS PHONE #: [phone] EXAM DATE: 10/15/2019 STATUS: REG ER FAX #: [phone] RAD NO: Page 1 Signed Report DRUGS OF ABUSE [id number] 00:05:00 Test Item Value Reference Range Interpretation [...] ECHO .READ BACK & CONFIRME D? [facility] 924. DETECTION CUT O FF: 100 ng/mLPrevio usly reported result : POSITIVE Edited by: MIKEBaron on 10/16/19:0005OP IAQLU prev. reported as:POSITIVE H . RESULTS CALLED TO .. READ BACK & CONFIRMED? [facility]. [facility] 10/14. UR PHENCYCLIDINE (PCP) NEGATIVE NEGATIVE DETEC TION CUT OFF: (test code = PHENCU) 25 ng/m L 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: Clean CatchSpecimen Comment: Clean CatchDRUGS OF ABUSE [id number] 00:04:00 Test Item Value Reference Range Interpretation [...] = OPIAQLU) .READ BACK & CONFIRMED? [facility]. DETECTION CUT OFF: 100 ng/mL UR PHENCYCLIDINE (PCP) NEGATIVE NEGATIVE DETEC TION CUT OFF: (test code = PHENCU) 25 ng/m L 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: Clean CatchSpecimen Comment: Clean CatchCOMPREHENSIVE METABOLIC [id number] 23:58:00 Test Item Value Reference Range Interpretation [...] 46-116 N code = ALKP) 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: Clean CatchSpecimen Comment: Clean CatchCREATINE KINASE (CK)2019-10-15 23:58:00 Test Item Value Reference Range Interpretation Comments CREATINE KINASE (CK) (test code = 81 Units/L 26-192 N CK) 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: Clean CatchSpecimen Comment: Clean CatchLIPASE 2019-10-15 23:58:00 Test Item Value Reference Range Interpretation Comments LIPASE (test code = LIP) 48 units/L 73-393 L 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: Clean CatchSpecimen Comment: Clean CatchMAGNESIUM 2019-10-15 23:58:00 Test Item Value Reference Range Interpretation Comments MAGNESIUM (test code = MAG) 1.7 mg/dL 1.8-2.4 L 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: Clean CatchSpecimen Comment: Clean CatchTHYROID STIMULATING [id number] 23:58:00 Test Item Value Reference Range Interpretation Comments THYROID STIMULATING 0.77 0.36-3.74 N Test Per formed in HORMONE (test code = MicroIn ternational Units/mL TSH) 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: Clean CatchSpecimen Comment: Clean CatchTROPONIN-I 2019-10-15 23:58:00 Test Item Value Reference Range Interpretation Comments TROPONIN-I (test code = TROPI) 0.043 ng/mL <0.056 N 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: Clean CatchSpecimen Comment: Clean CatchPROTHROMBIN [id number] 23:41:00 Test Item Value Reference Range Interpretation Comments PROTHROMBIN TIME PATIENT (test code 10.8 secs 10.4-12.4 N = PTP) 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: Clean CatchSpecimen Comment: Clean CatchIS PATIENT ON ANTICOAGULANTS ? NINTERNATIONAL NORMAL [id number] 23:41:00 Test Item Value Reference Range Interpretation [...] stemic embolism. 3.0 - 3.5 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: Clean CatchSpecimen Comment: Clean CatchIS PATIENT ON ANTICOAGULANTS ? NTHROMBOPLASTIN TIME [id number] 23:41:00 Test Item Value Reference Range Interpretation Comments THROMBOPLASTIN TIME PARTIAL (test 30.1 secs 22-38 N code = PTT) 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: Clean CatchSpecimen Comment: Clean CatchIS PATIENT ON ANTICOAGULANTS ? ND-DIMER [id number] 23:41:00 Test Item Value Reference Range Interpretation Comments D-DIMER QUANT 544 ng/mLDDU <255 H Reference Ra nge in (test code = : <570 DDIMER) ng/ml A positive test d oes not provide a defin itive diagnosis ofDVT and indicates the n eed for follow up clini jono studies. The pr edictive value of a nega tive test is 98% for rulingout DVT. 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: Clean CatchSpecimen Comment: Clean CatchIS PATIENT ON ANTICOAGULANTS ? NUA RFLX MICR CULT IF [id number] 23:36:00 Test Item Value Reference Range Interpretation [...] = MUCU) RARE NONE SEEN 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: Clean CatchSpecimen Comment: Clean CatchIndication for culture: Dysuria/FrequencyCBC W/AUTO [id number] 23:29:00 Test Item Value Reference Range Interpretation [...] NORMAL NORMAL code = PLTMR) 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: Clean CatchSpecimen Comment: Clean CatchFALLOPIAN TUBE,[id number] 13:52:00 RUN DATE: 10/08/19 [facility] PAGE 1 RUN TIME: 1734 Specimen Inquiry RUN USER: INTERFACE --PATIENT: [facility]ELIC[facility]CCANN [facility] #[facility] [id number] AGE/SX: 33/F ROOM: [facility] RE10/06/19REG DR: Sanna Hoffman MD : 84 BED: A DIS: STATUS: ADM IN TLOC: SPEC #: [id number] RECD: 10/07/19-1010 STATUS: BRENDA REQ #: [id number] GABRIELLA: 10/07/19- SUBM DR: Sanna Hoffman MD ENTERED: 10/07/19-1011 SP TYPE: FALLBX OTHR DR: ORDERED: LEVEL IV CODES: [id number] - FALLOPIAN TUBE PROCEDURES: LEVEL IV (Incompl ete) TISSUES: FALLOPIAN TUBE, NOS - RIGHT AND LEFT FALLOPIAN TUBE CLINICAL HISTORY Not provided (wpd) FINAL DIAGNOSIS Right fallopian tube, tubal ligation: - fallopian tube with complete surgical transection, no pathologic alteration Left fallopian tube, tubal ligation: - fallopian tube with complete surgical transection, no pathologic alteration CPT code(s): 90576 x2 pkg/kr GROSS DESCRIPTION ANATOMIC SOURCE OF [...] pink-purple and hyperemic. The lumen is pinpoint. Steel Detailer sections are submitted as A1. Specimen #2 is designated "left fallopian tube" and consists of a 4.5 cm in length and 0.6cm in diameter fimbriated fallopian tube. The serosa is pink-purple and hyperemic. The lumen is pinpoint. Steel Detailer sections are submitted as B1. jovita/wpd 10/07/19 CONTINUED ON NEXT PAGE ----- -------RUN DATE: 10/08/19 [facility] PAGE 2 RUN TIME: 1734 Specimen Inquiry RUN USER: INTERFACE SYDNEY Greer #: [id number] PATIENT: FELICIA MCCANN #[id number] (Continued) MICROSCOPIC DESCRIPTION Specimen #1 - the fallopian tube architecture is intact. The lumen is not dilated. A completely transected segment of fallopian tube is present. Specimen #2 - the fallopian tube architecture is intact. The lumen is not dilated. A completely transected segment of fallopian tube is present. kaylene/roger Signed Tiny Jurado 10/08/19 1352 END OF REPORT HGB [id number] 05:07:00 Test Item Value Reference Range Interpretation Comments HEMOGLOBIN (test code = HGB) 9.3 g/dL 10.7-13.9 L HEMATOCRIT (test code = HCT) 28.3 % 32.1-42.1 L Coronavirus 2019 nCoV [id number] 16:02:00 Test Item Value Reference Range Interpretation Comments Coronavirus 2019 nCoV Negative Negative RESUL TS CALLED TO Bedside (test code = BERENICE/A PUREAD BACK & [id number]) CONFIRMED? CHAI ManLAB. 10/06/19 1602 T his result does not [...] PERFORMED UNDER AN EMERGENCY USE AUTHORIZATION F [facility] FDA AG HEPATITIS B [id number] 07:07:00 Test Item Value Reference Range Interpretation Comments AG HEPATITIS B SURFACE (test code NONREACTIVE NONREACTIVE = HBSAG) AB HEPATITIS C [id number] 07:07:00 Test Item Value Reference Range Interpretation Comments AB HEPATITIS C (test code = NONREACTIVE NONREACTIVE HCVAB) SIGNAL TO CUTOFF (test code = 0.13 <0.80 N CUTOFF) AB [id number] 07:07:00 Test Item Value Reference Range Interpretation Comments AB TREPONEMA (test code = TREPAB) NONREACTIVE NONREACTIVE AG HEPATITIS B [id number] 06:50:00 Test Item Value Reference Range Interpretation Comments AG HEPATITIS B SURFACE (test code NONREACTIVE NONREACTIVE = HBSAG) AB HEPATITIS C [id number] 06:50:00 Test Item Value Reference Range Interpretation Comments AB HEPATITIS C (test code = HCVAB) NONREACTIVE SIGNAL TO CUTOFF (test code = CUTOFF) <0.80 AB [id number] 06:50:00 Test Item Value Reference Range Interpretation Comments AB TREPONEMA (test code = TREPAB) NONREACTIVE NONREACTIVE CBC W/AUTO [id number] 02:32:00 Test Item Value Reference Range Interpretation [...] (test NORMAL NORMAL code = PLTMR) URINALYSIS [id number] 23:53:00 Test Item Value Reference Range Interpretation [...] = MUCU) 4+ NONE SEEN 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: KBKennedy RICHARDSON SAMPLE: CLEAN [id number] 14:53:00 Test Item Value Reference Range Interpretation Comments CREATININE (test code = CREAT) 0.9 mg/dL 0.5-1.0 N SGOT/[id number] 14:53:00 Test Item Value Reference Range Interpretation Comments SGOT/AST (test code = AST) 46 units/L 15-37 H SGPT/[id number] 14:53:00 Test Item Value Reference Range Interpretation Comments SGPT/ALT (test code = ALT) 39 units/L 12-78 N URINALYSIS [id number] 14:28:00 Test Item Value Reference Range Interpretation [...] SEEN URINE SAMPLE: CLEAN CATCHComment MACCBC W/AUTO [id number] 14:24:00 Test Item Value Reference Range Interpretation [...] NORMAL NORMAL code = PLTMR) URINALYSIS W/O [id number] 16:36:00 Test Item Value Reference Range Interpretation Comments UA GLUCOSE DIPSTICK (test code = NEGATIVE NEGATIVE DGLUU) UA KETONE DIPSTICK (test code = TRACE NEGATIVE KETU) UA PROTEIN DIPSTICK (test code = NEGATIVE NEGATIVE PROU) IS NURSE PERFORMING TEST? SHAMEKA PROTEIN/CREATININE [id number] 16:36:00 Test Item Value Reference Range Interpretation Comments UR PROTEIN RANDOM (test code = 37.6 mg/dL PROTU) UR CREATININE RANDOM (test 290.4 mg/dL code = CREATU) PROTEIN/CREATININE RATIO (test 120.0 mg/gcrea <200 code = P/CRATIO) IS NURSE PERFORMING TEST? [id number] 16:16:00 Test Item Value Reference Range Interpretation Comments CREATININE (test code = CREAT) 0.7 mg/dL 0.5-1.0 N SGOT/[id number] 16:16:00 Test Item Value Reference Range Interpretation Comments SGOT/AST (test code = AST) 15 units/L 15-37 N SGPT/[id number] 16:16:00 Test Item Value Reference Range Interpretation Comments SGPT/ALT (test code = ALT) 16 units/L 12-78 N CBC W/AUTO [id number] 15:58:00 Test Item Value Reference Range Interpretation [...] NORMAL NORMAL code = PLTMR) URINALYSIS W/O [id number] 15:43:00 Test Item Value Reference Range Interpretation Comments UA GLUCOSE DIPSTICK (test code = NEGATIVE NEGATIVE DGLUU) UA KETONE DIPSTICK (test code = TRACE NEGATIVE KETU) UA PROTEIN DIPSTICK (test code = NEGATIVE NEGATIVE PROU) IS NURSE PERFORMING TEST? SHAMEKA PROTEIN/CREATININE [id number] 15:43:00 Test Item Value Reference Range Interpretation Comments UR PROTEIN RANDOM (test code = mg/dL PROTU) UR CREATININE RANDOM (test code = mg/dL CREATU) PROTEIN/CREATININE RATIO (test code mg/gcrea <200 = P/CRATIO) IS NURSE PERFORMING TEST? SHAMEKA PROTEIN [id number] 13:08:00 Test Item Value Reference Range Interpretation Comments UR PROTEIN RANDOM 21.8 mg/dL (test code = PROTU) UR PROTEIN 24HR 305 mg/24HR 20-150 HH RESULTS CALL ED TO (test code = DONNA NUGENT AD BACK YOMJ03B) & CONFIRMED? MAURICIO S.BY F.LAB.ELB1 08/07 1308.Units for 24 HR Urine Protein h ave changed: New Un its = MG/24HR UR VOLUME (test code 1400 ML = VOL) COMPREHENSIVE METABOLIC [id number] 15:51:00 Test Item Value Reference Range Interpretation [...] 46-116 N code = ALKP) CBC W/AUTO [id number] 15:25:00 Test Item Value Reference Range Interpretation [...] NORMAL code = PLTMR) UR CREATININE CLEARANCE [id number] 16:27:00 Test Item Value Reference Range Interpretation Comments CREATININE CLEARANCE RESULT (test 180 ml/min 70-120 H code = CREATCLR) CREATININE (test code = CREAT) 0.6 mg/dL 0.5-1.0 N UR CREATININE RANDOM (test code = 120.2 mg/dL CREATU) UR VOLUME (test code = VOL) 1300 ML UR PROTEIN [id number] 16:27:00 Test Item Value Reference Range Interpretation Comments UR PROTEIN RANDOM 23.5 mg/dL (test code = PROTU) UR PROTEIN 24HR (test 306 mg/24HR 20-150 HH RESULT S CALLED TO code = CUGY77N) APRIL.READ BACK & CONFIRMED? YES. BY CHRISTINA 12/26 3905.Units for 24 HR Urine Protein h ave changed: New Un its = MG/24HR AMNISURE (ROM) [id number] 15:13:00 Test Item Value Reference Range Interpretation Comments AMNISURE (ROM) TEST (test code = NON-RUPTURED NON-RUPTURE AMNI) : *Amnisure QC OK? YES- US FET BIO PH [place] W/O [id number] 10:31:00 Patient Name: FELICIA MCCANN Unit No: [id number] EXAMS: CPT CODE: [id number] US FET BIO PH [place] W/O NST [address] [facility] [address], [place] [address] OBSTETRICAL BIOPHYSICAL ULTRASOUND REPORT Pat. Name: FELICIA MCCANN Pat. No: [id number] Study Date: 08/14/2019 9:40am , Age: 05 1985, 33 Pregnancies: 6, Para 1132 LMP: Unknown GA by 1st: 28w6d GA by US: 28w5d GA Selected: 28w6d (From First S) BETSY: 10/31/2019 Referring MD: Sanna Hoffman Senior Management Consultant: Shante Lazo RDMS CPT4: USBPPWONST Hist/Ind: HTN SCAN 3 MEASUREMENTS FETALAGE GROWTH EVALUATION Measurement GA Range Srce %for GA Ratios ----- ------- BPD 7.2 cm 29w1d (17p5y-66x4k) Hadl BPD 57% FL/BPD 0.75 (0.71- 0.87) HC 27.6 cm 29w6d (32e7g-26h8o) Hadl HC 71% FL/AC 0.21 (0.20 - 0.24) APD 8.2 cm APD HC/AC 1.10 (0.99 - 1.18) TAD 7.7 cm TAD CI 0.73 (0.70 - 0.86) AC 25.0 cm 29w1d (27w0d- 31w2d) Hadl AC 56% FL 5.4 cm 28w0d (75v7b-27c1n) Hadl FL 33% HL 5.0 cm 29w2d (22t7f-30n5n) Gian HL 56% GA for sonogram 28w5d (75j1x-57k9c) Weight Estimate: based on (BPD,HC,AC,FL) Hadlock Weight: 1320 gm (7596-7368) Hadlo : 2lbs, 14oz Normal: 1287 gm (873-1857) Hayliee Wt% 52% for 28.9 wks Cervical Length: [...] observed tone noted breathing movements observed [facility] NAME: FELICIA MCCANN Radiology Department PHYS: Sanna Cavanaugh MD [address] : 1985 AGE: 33 SEX: F [place], [place] [address] LOC: Donovan3036 Ras PHONE #: [phone] EXAM DATE: 08/14/2019 STATUS: ADM IN FAX #: [phone] RAD NO: Page 1 Signed Report (CONTINUED) Patient Name: FELICIA MCCANN Unit No: [id number] EXAMS: CPT CODE: [id number] FET BIO PH [place] W/O NST [address] (Continued) Placental location: Anterior Placental maturity : Grade 1 There is no evidence of placenta previa. Amniotic fluid volume is normal. Uterus and adnexa: No significant abnormality is seen. Thank you for allowing us to participate in the care of this patient. Janie Lovell M.D. Electronic Signature 08/14/2019 10:31am at 1031 Reported and signed by: Janie Lovell MD CC: Sanna Hoffman Technologist: Fredrick Lazo RDMS Probe: Trnscrbd D/ (1031) NarcisoG Orig Print D/T: S: 08/16/2019 (1153) [facility] NAME: FELICIA MCCANN Radiology Department PHYS: Sanna Cavanaugh MD [address] : 1985 AGE: 33 SEX: [place] [address] LOC: Dhara6 A PHONE #: [phone] EXAM DATE: 08/14/2019 STATUS: ADM IN FAX #: [phone] RAD NO: Page 2Signed Report Patient Name: FELICIA MCCANN Unit No: [id number] EXAMS: CPT CODE: [id number] US FET BIO PH [place] W/O NST [address] (Continued) [facility] [place] NAME: FELICIA MCCANN Radiology Department PHYS: Sanna Cavanaugh MD [address] : 1985 AGE: 33 SEX: F [place], [place] [address]DQFB NO: [id number] LOC: Gary A PHONE #: [phone] EXAM DATE: 08/14/2019 STATUS: ADM IN FAX #: [phone] RAD NO: Page 3 Signed Report- US FLW [id number] 10:31:00 Patient Name: FELICIA MCCANN Unit No: [id number] EXAMS: CPT CODE: [id number] [place] [address] [address] [place], [place] [address] OBSTETRICAL BIOPHYSICAL ULTRASOUND REPORT Pat. Name: FELICIA MCCANN Pat. No: [id number] Study Date: 08/14/2019 9:40am , Age: 05 1985, 33 Pregnancies: 6, Para 1132 LMP: Unknown GA by 1st: 28w6d GA by US: 28w5d GA Selected: 28w6d (From First S) BETSY: 10/31/2019 Referring MD: JO PAUL Senior Management Consultant: Shante Lazo RDMS CPT4: USPREGFU Admitting MD: SANNA HOFFMAN Hist/Ind: HTN SCAN 3 M EASUREMENTS AGE GROWTH EVALUATION Measurement GA Range Srce %for GA Ratios ----- ---- ------- BPD 7.2 cm 29w1d (88e5k-18g2u) Hadl BPD 57% FL/BPD 0.75 (0.71 - 0.87) HC 27.6 cm 29w6d (37w7h-90z0x) Hadl HC 71% FL/AC 0.21 (0.20 - 0.24) APD 8.2 cm APD HC/AC 1.10 (0.99 - 1.18) TAD 7.7 cm TAD CI 0.73 (0.70 - 0.86) AC 25.0 cm 29w1d (49u9g-11x2k) Hadl AC 56% FL 5.4 cm 28w0d (34o4a-74o0i) Hadl FL 33% HL 5.0 cm 29w2d (24o2c-62l5e) Gian HL 56% GAfor sonogram 28w5d (20t6o-45e7m) Weight Estimate: based on (BPD,HC,AC,FL) Hadlock Weight: 1320gm (6285-3558) Hadlo : 2lbs, 14oz Normal: 1287 gm (873-1857) Brenne Wt% 52% for 28.9 wks Cervical Le ngth: 3.9 cm Heart Rate: 140 bpm Amniotic [...] and limb movements observed tone noted [facility] [place] NAME:FELICIA MCCANN Radiology Department PHYS: Sanna Cavanaugh MD [address] : 1985 AGE: 33 SEX: F [place], [place] [address] LOC: Donovan3036 A PHONE #: [phone] EXAM DATE: 08/14/2019 STATUS: ADM IN FAX #: [phone] RAD NO: Page 1 Signed Report (CONTINUED) Patient Name: FELICIA MCCANN Unit No: [id number] EXAMS: CPT CODE: [id number] [place] [address] (Continued) breathing movements observed Placental location: Anterior Placental maturity : Grade 1 There is no evidence of placenta previa. Amniotic fluid volume is normal. Uterus and adnexa: No significantabnormality is seen. Thank you for allowing us to participate in the care of this patient. Janie Lovell M.D. Electronic Signature 08/14/2019 10:31am at 1031 Reported and signed by: Janie Lovell MD CC: Sanna Hoffman Technologist: Shante Lazo RDMS Probe: Trnscrbd D/ (1031) [email or web address] Orig Print D/T: S: 08/14/2019 (1031) [facility] NAME: FELICIA MCCANN Radiology Department PHYS: Sanna Cavanaugh MD [address] : 1985 AGE: 33 SEX: [place] [address] LOC: Dhara6 A PHONE #: [phone] EXAM DATE: 08/14/2019 STATUS: ADM IN FAX #: [phone] RAD NO: Page 2 Signed Report Patient Name: FELICIA MCCANN Unit No: [id number] EXAMS: CPT CODE: [id number] [place] UP [address] (Continued) [facility] NAME: FELICIA MCCANN Radiology Department PHYS: Sanna Cavanaugh MD [address] : 1985 AGE: 33 SEX: F [place] [address] LOC: Dhara6 A PHONE #: [phone] EXAM DATE: 08/14/2019 STATUS:ADM IN FAX #: [phone] RAD NO: Page 3 Signed Report GLUCOSE [id number] 09:45:00 Test Item Value Reference Range Interpretation Comments GLUCOSE 2HR (test code = GLU2) 127 mg/dL 70-140 N 3HR GTT GLU2 GLU2HR from 306:CF:[id number].GLUCOSE [id number] 09:42:00 Test Item Value Reference Range Interpretation Comments GLUCOSE 3HR (test code = GLU3) 116 mg/dL 65-110 H 3HR GTT GLU3 GLU3HR from 306:CF:[id number].GESTATION SCREEN [id number] 07:21:00 Test Item Value Reference Range Interpretation Comments GESTATION SCREEN GLUCOSE (test code 142 MG/DL <150 = GLU1S) GLU GEST SCRN 1 HR GLU GLU1S from 306:CF:[id number].GLUCOSE [id number] 05:26:00 Test Item Value Reference Range Interpretation Comments GLUCOSE FASTING (test code = GLUF) 93 mg/dL 65-110 N GLU GEST SCRN GLUFAST GLUFAST from 0307:CF:[id number].CHEMISTRY 7 [id number] 15:00:00 Test Item Value Reference Range Interpretation [...] = CA) 8.5 mg/dL 8.4-10.2 N LIVER [id number] 15:00:00 Test Item Value Reference Range Interpretation [...] 46-116 N code = ALKP) CBC W/AUTO [id number] 14:35:00 Test Item Value Reference Range Interpretation [...] NORMAL NORMAL code = PLTMR) UR PROTEIN [id number] 13:01:00 Test Item Value Reference Range Interpretation Comments UR PROTEIN RANDOM 14.5 mg/dL (test code = PROTU) UR PROTEIN 24HR (test 189 mg/24HR 20-150 H Units for 24 HR Urine code = UTWZ33U) Protein have changed: New Units = MG/ 24HR UR VOLUME (test code 1300 ML = VOL) - US PREG AFTER [id number] 09:35:00 Patient Name: FELICIA MCCANN Unit No: [id number] EXAMS: CPT CODE: [id number] US PREG AFTER [address] [facility] [address], [place] [address] OBSTETRICAL ULTRASOUND REPORT Pat. Name: FELICIA MCCANN. No: [id number] Study Date: 07/29/2019 9:25pm , Age: 05 1985, 33 Pregnancies: 6, Para 1132 LMP: Unknown GA by 1st: 26w4d GA by US: 26w1d GA Selected: 26w4d (From First S) BETSY: 10/31/2019 Referri flavia MD: JO PAUL Senior Management Consultant: Julianne Portillo RDMS CPT4: GBPVMED2Z Admitting MD: SANNA HOFFMAN Hist/Ind: HIGH BP SCAN 2 M EASUREMENTS AGE GROWTH EVALUATION Measurement GA Range Srce %for GA Ratios ----- ---- ------- BPD 6.5 cm 26w3d (88l4n-00h8e) Hadl BPD 46%FL/BPD 0.75 (0.71 - 0.87) HC 24.2 cm 26w0d (63h8x-59q5x) Hadl HC 39% FL/AC 0.21 (0.20 - 0.24) APD 7.3 cm APD HC/AC 1.05 (1.00 - 1.19) TAD 7.3 cm TAD CI 0.80 (0.70 - 0.86) AC 22.9 cm 27w1d (57m9g-79r3j)Hadl AC 63% FL 4.9 cm 26w1d (67p3r-88t5c) Hadl FL 40% HL 4.5 cm 26w5d (21h1v-48y9f) Gian SALAZAR 53% GA for sonogram 26w1d (54m3u-52o5s) Weight Estimate: based on (BPD,HC,AC,FL) Hadlock Weight: 992 gm(847-1137) Hadlock : 2lbs, 2oz Normal: 934 gm (621-1406) Asael Wt% 55% for 26.6 wks Cervical Length : 3.5 cm Heart Rate: 137 bpm Amniotic Fluid Index: 13.3cm (09.6-22.5) Q1: 4.8cm Q2: 3.9cm Q3: 3.4cm Q4: 1.3cm MATERNAL ANATOMY Ovaries LxHxW (cm) Right 2.4 x 2.0 x 1.8 Vol: 4.5cc Left 2.6 x 1.5 x 1.9 Vol: 3.9cc CLINICAL SUMMARY Type of Gestation: Heredia Intrauterine in vertex presentation. size is appropriate for gestational age. growth: Consistent with normal growth [facility] NAME: FELICIA MCCANN Radiology Department PHYS: Sanna Cavanaugh MD [address] : 1985 AGE: 33 SEX: F [place], [place] [address] LOC: Donovan3048 A PHONE #: [phone] EXAM DATE: 07/29/2019 STATUS: ADM IN FAX #: [phone] RAD NO: Page 1 Signed Report (CONTINUED) Patient Name: FELICIA MCCANN Unit No: [id number] EXAMS: CPT CODE: [id number] US PREG AFTER 1ST TRI [address] (Continued) motion and organs seen: heart motion [...] Julianne Portillo RDMS Probe: Trnscrbd D/ (0935) GarethYOS Orig Print D/T: S: 07/30/2019 (0935) [facility] [place] NAME: FELICIA CMCANN Radiology Department PHYS: Sanna Cavanaugh MD [address] : 1985 AGE: 33 SEX: F [place], [place] [address] LOC: F.3048 A PHONE #: [phone] EXAM DATE: 07/29/2019 STATUS: ADM IN FAX #: [phone] RAD NO: Page 2 Signed Report Patient Name: FELICIA MCCANN Unit No: [id number] EXAMS: CPT CODE: [id number] US PREG AFTER 1ST TRI [address] (Continued) [facility] [place] NAME: FELICIA MCCANN Radiology Department PHYS: Sanna Cavanaugh MD [address] : 1985 AGE: 33 SEX: [place], [place] [address] LOC: F.3048 A PHONE #: [phone] EXAM DATE: 07/29/2019 STATUS: ADM IN FAX #: [phone] RAD NO: Page 3 Signed ReportGESTATION SCREEN [id number] 07:59:00 Test Item Value Reference Range Interpretation Comments GESTATION SCREEN GLUCOSE (test code 135 MG/DL <150 = GLU1S) GLU GEST SCRN 1 HR GLU GLU1S from 220:CF:[id number].GLUCOSE [id number] 05:55:00 Test Item Value Reference Range Interpretation Comments GLUCOSE FASTING (test code = GLUF) 96 mg/dL 65-110 N GLU GEST SCRN GLUFAST GLUFAST from 220:CF:[id number].[id number] 13:37:00 Test Item Value Reference Range Interpretation Comments CREATININE (test code = CREAT) 0.7 mg/dL 0.5-1.0 N SGOT/[id number] 13:37:00 Test Item Value Reference Range Interpretation Comments SGOT/AST (test code = AST) 12 units/L 15-37 L SGPT/[id number] 13:37:00 Test Item Value Reference Range Interpretation Comments SGPT/ALT (test code = ALT) 15 units/L 12-78 N ALKALINE PHOSPHATASE [id number] 13:37:00 Test Item Value Reference Range Interpretation Comments ALKALINE PHOSPHATASE TOTAL (test 50 units/L 46-116 N code = ALKP) [id number] 13:37:00 Test Item Value Reference Range Interpretation Comments AMYLASE (test code = RAISA) 30 units/L 30-110 N [id number] 13:37:00 Test Item Value Reference Range Interpretation Comments LIPASE (test code = LIP) 60 units/L 73-393 L CBC W/AUTO [id number] 13:19:00 Test Item Value Reference Range Interpretation [...] NORMAL NORMAL code = PLTMR) CHEMISTRY 7 [id number] 23:01:00 Test Item Value Reference Range Interpretation [...] = CA) 8.6 mg/dL 8.4-10.2 N URIC [id number] 23:01:00 Test Item Value Reference Range Interpretation Comments URIC ACID (test code = URIC) 3.7 mg/dL 2.6-6.0 N SGOT/[id number] 23:01:00 Test Item Value Reference Range Interpretation Comments SGOT/AST (test code = AST) 22 units/L 15-37 N SGPT/[id number] 23:01:00 Test Item Value Reference Range Interpretation Comments SGPT/ALT (test code = ALT) 26 units/L 12-78 N CHEMISTRY 7 [id number] 22:51:00 Test Item Value Reference Range Interpretation [...] = CA) 8.6 mg/dL 8.4-10.2 N URIC [id number] 22:51:00 Test Item Value Reference Range Interpretation Comments URIC ACID (test code = URIC) 3.7 mg/dL 2.6-6.0 N URINALYSIS [id number] 22:35:00 Test Item Value Reference Range Interpretation [...] = MUCU) RARE NONE SEEN 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: CORETTA MCCORD SAMPLE: CLEAN CATCHCBC W/AUTO DIFF [...] code = PLTMR) - US PREG UT [id number] 20:39:00 Patient Name: FELICIA MCCANN Unit No: [id number] EXAMS: CPT CODE: [id number] US PREG UT TRANSVAGINAL [address] Limited obstetrical ultrasound with transvaginal imaging of [...] MD CC: Sanna Hoffman Technologist: Shante Lazo [facility] Probe: [id number] Trnscrbd D/ (2038) t.DMLiz Orig Print D/T: S: 06/26/2019 (2041) [facility] NAME: FELICIA MCCANN Radiology Department PHYS: Sanna Cavanaugh MD [address] : 1985 AGE: 33 SEX: [place] [address] LOC: Lau[place].ROMAN PHONE #: [phone] EXAM DATE: 06/26/2019 STATUS: REG ER FAX #: [phone] NO: Page 1 Signed Report Patient Name: FELICIA MCCANN Unit No: [id number] EXAMS: CPT CODE: [id number] US PREG UT TRANSVAGINAL [address] (Continued) [facility] [place] NAME: FELICIA MCCANN Radiology Department PHYS: Sanna Cavanaugh MD [address] : 1985 AGE: 33 SEX: F [place] [address] LOC: DonovanROMAN PHONE #: [phone] EXAM DATE: 06/26/2019 STATUS: REG ER FAX #: [phone] RAD NO: Page 2 Signed Report- US FLW [id number] 20:39:00 Patient Name: FELICIA MCCANN Unit No: [id number] EXAMS: [place]: [id number] [address] Limited obstetrical ultrasound with transvaginal imaging of [...] of 147 bpm. IMPRESSION: 1. Single living intrauter ine with an estimated ultrasound gestational age of 22 weeks 0 days and an estimated date of delivery of 10/30/2019. SL: 131 at 2038 Reported and signed by: Jaiden Durham MD CC: Jo Pual MD; Sanna Hoffman Technologist: Shante Lazo RDMS Probe: Trnscrbd D/ (2038) t.SDR.DMM Orig Print D/T: S: 06/26/2019 (2041) [facility] NAME: SIOBHANFELICIA JULIANNE Radiology Department PHYS: HARSHA. Jo Paul MD [address] : 1985 AGE: 33 SEX: F [place], [place] [address] ACCT NO: [id number] LOC: DonovanROMAN PHONE #: [phone] EXAM DATE: 06/26/2019 STATUS: REG ER FAX #: [phone] NO: Page 1 Signed Report Patient Name: FELICIA MCCANN Unit No: [id number] EXAMS: CPT CODE: [id number] [place] [address] (Continued) [facility] [place] NAME: KAUSHIK MCCANN Radiology Department PHYS: HARSHA. Jo Paul MD [address] : 1985 AGE: 33 SEX: F [place], [place] [address] LOC: DonovanROMAN PHONE #: [phone] EXAM DATE: 06/26/2019 STATUS: REG ER FAX #: [phone] RAD NO: Page 2 Signed ReportCOMPREHENSIVE METABOLIC [id number] 20:15:00 Test Item Value Reference Range Interpretation [...] = ALKP) UA RFLX MICR CULT IF [id number] 19:55:00 Test Item Value Reference Range Interpretation [...] RARE-FEW Indication for culture: Suprapubic PainUR PROTEIN/CREATININE [id number] 19:55:00 Test Item Value Reference Range Interpretation Comments UR PROTEIN RANDOM (test code = <6 mg/dL PROTU) UR CREATININE RANDOM (test 22.8 mg/dL code = CREATU) PROTEIN/CREATININE RATIO (test 260.0 mg/gcrea <200 H code = P/CRATIO) Indication for culture: Suprapubic PainUA RFLX MICR CULT IF [id number] 19:51:00 Test Item Value Reference Range Interpretation [...] RARE-FEW Indication for culture: Suprapubic PainUR PROTEIN/CREATININE [id number] 19:51:00 Test Item Value Reference Range Interpretation Comments UR PROTEIN RANDOM (test code = mg/dL PROTU) UR CREATININE RANDOM (test code = mg/dL CREATU) PROTEIN/CREATININE RATIO (test code mg/gcrea <200 = P/CRATIO) Indication for culture: Suprapubic PainCBC W/AUTO [id number] 19:47:00 Test Item Value Reference Range Interpretation [...]
[2023-03-26] MEDS ORDERED: NA CHLORIDE 0.9% 1,000 ML ONE (09:40)
[2023-03-26] MEDS ORDERED: KETOROLAC 30 MG/ML INJ ONE (09:40)
--- NOTE | 2023-03-26 10:31 | ER ---
[facility] Name: Felicia Cheung Age: 37 yrs Sex: Female : 1985 Arrival Date: 03/26/2023 Time: 09:03 Bed 14 Private MD: Diagnosis: Streptococcal pharyngitis Presentation: 03/26 09:21 Chief complaint: Patient states: flu like symptoms x1 week. has been to urgent care 6 twice. Coronavirus screen: At this time, the client does not indicate any symptoms associated with coronavirus-19. Ebola Screen: No symptoms or risks identified at this time. Initial Sepsis Screen: Does the patient meet any 2 criteria? No. Patient's initial sepsis screen is negative. Does the patient have a suspected source of infection? No. Patient's initial sepsis screen is negative. Risk Assessment: Do you want to hurt yourself or someone else? Patient reports no desire to harm self or others. Onset of symptoms was March 26, 2023. 09:21 Method Of Arrival: Ambulatory [facility] 09:21 Acuity: COMPA 4 kc6 Triage Assessment: 09:22 Headache History: Denies prior headaches. General: Appears in no apparent distress. kc6 uncomfortable, ill, Behavior is calm, cooperative, appropriate for age, Reports feeling ill for fatigue for. Pain: Complains of pain in head, neck, sore throat. EENT: Throat is reddened bilaterally with gag reflex present, Reports nasal congestion. Neuro: Level of Consciousness is awake, alert, obeys commands, Oriented to person, place, time, situation, Appropriate for age Reports headache. Cardiovascular: Capillary refill < 3 seconds. Respiratory: Reports cough that is productive, Airway is patent Trachea midline Respiratory effort is even, unlabored, Respiratory pattern is regular, symmetrical. GI: No signs and/or symptoms were reported involving the gastrointestinal system. : No signs and/or symptoms were reported regarding the genitourinary system. Derm: No signs and/or symptoms reported regarding the dermatologic system. Skin is intact, is healthy with good turgor, Skin is pink, warm \T\ dry. Musculoskeletal: No signs and/or symptoms reported regarding the musculoskeletal system. Circulation, motion, and sensation intact. Capillary refill < 3 seconds, Range of motion: intact in all extremities. 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 - Social history:: Smoking status: Reported history of juuling and/or vaping. Screenin:24 [facility] ED Fall Risk Assessment (Adult) History of falling in the last 3 months, kc6 including since admission No falls in past 3 months (0 pts) Confusion or Disorientation No (0 pts) Intoxicated or Sedated No (0 pts) Impaired Gait No (0 pts) Mobility Assist Device Used No (0 pt) Altered Elimination No (0 pt) Score/Fall Risk Level 0 - 2 = Low Risk. Abuse screen: Denies threats or abuse. Denies injuries from another. Nutritional screening: No deficits noted. Tuberculosis screening: No symptoms or risk factors identified. Assessment: :24 Reassessment: please see triage assessment. kc6 10:28 Reassessment: Patient appears in no apparent distress at this time. No changes from [facility] previously documented assessment. Patient and/or family updated on plan of care and expected duration. Pain level reassessed. Patient is alert, oriented x 3, equal unlabored respirations, skin warm/dry/pink. Vital Signs: 09:21 BP 143 / 95; Pulse 78; Resp 16 S; Temp 97.9(O); Pulse Ox 100% on R/A; Weight 88.45 kg kc6 (R); Height 5 ft. 9 in. (R); 09:21 Body Mass Index 28.80 (88.45 kg, 175.26 cm) [facility] ED Course: 09:07 Patient arrived in ED. mg5 09:08 Elisabet Coley [facility]-C [facility]. kb 09:08 Kishore Chavira MD is Attending Physician. kb 09:16 Nohemi Bentley RN is Primary Nurse. kc6 09:22 Triage completed. kc6 09:22 Arm band placed on. kc6 09:24 Patient has correct armband on for positive identification. Bed in low position. Call kc6 light in reach. Side rails up X 1. Client placed on continuous cardiac and pulse oximetry monitoring. NIBP monitoring applied. 09:27 Inserted saline lock: 22 gauge in right antecubital area, using aseptic technique. ds4 Blood collected. 09:35 Strep Sent. kc6 09:35 COVID-19 SARS RT PCR Sent. kc6 09:35 Flu Sent. kc6 10:42 No provider procedures requiring assistance completed. IV discontinued, intact, kc6 bleeding controlled, No redness/swelling at site. Pressure dressing applied. Administered Medications: 09:34 Drug: Ketorolac IVP 15 mg IVP once Route: IVP; Site: right antecubital; kc6 10:27 Follow up: Response: No adverse reaction; Pain is unchanged, physician notified kc6 09:34 Drug: NS 0.9% IV 1000 ml IV at 1 bolus Per protocol; 1000 mL bolus Route: IV; Rate: 1 kc6 bolus; Site: right antecubital; 10:27 Follow up: Response: No adverse reaction; IV Status: Completed infusion; IV Intake: kc6 1000ml 10:42 Drug: Amoxicillin-Clavulanate PO 875 mg PO once Route: PO; kc6 10:45 Follow up: Response: No adverse reaction kc6 Medication: 10:43 VIS not applicable for this client. kc6 Intake: 10:27 IV: 1000ml; Total: 1000ml. kc6 Outcome: 10:31 Discharge ordered by . kb 10:42 Discharged to home ambulatory, kc6 10:42 Condition: stable 10:42 Discharge instructions given to patient, Instructed on discharge instructions, follow up and referral plans. medication usage, Demonstrated understanding of instructions, follow-up care, medications, Prescriptions given X 1, 10:43 Patient left the ED. kc6 Signatures: Elisabet Coley, LUZ INSTRUCTOR PILOT-Mauricio Andrea ds4 Nohemi Bentley RN RN kc6 Veda Gusman mg5 Corrections: (The following items were deleted from the chart) : 09:22 PSHx: back; kc6 kc6
--- NOTE | 2023-03-26 10:31 | EDPHYS ---
Physician Documentation [facility] Name: Felicia Cheung Age: 37 yrs Sex: Female : 1985 Arrival Date: 03/26/2023 Time: 09:03 Bed 14 Private MD: ED Physician Kishore Chavira HPI: 03/26 10:51 This 37 yrs old Female presents to ER via Ambulatory with complaints of Doesn't Feel kb Right, Headache, Sore Throat, Neck Pain, >24Hrs Old. 10:51 The patient presents with sore throat. The patient describes throat pain as constant. kb Onset: The symptoms/episode began/occurred 1 week(s) ago. Severity of symptoms: At their worst the symptoms were moderate, in the emergency department the symptoms are unchanged. Modifying factors: The symptoms are alleviated by nothing, the symptoms are aggravated by swallowing, Patient's oral intake status: limited fluid intake, limited food intake. Associated signs and symptoms: Pertinent positives: cough, fever, flu-like symptoms, malaise, Sore throat. The patient has not experienced similar symptoms in the past. The patient has been recently seen at an urgent care. Pt reports sore throat, fatigue, malaise, cough and headache for one week. Was seen at last week and given a course of steroids. Went back to 2 days ago and was given a steroid injection, but hasn't gotten any better. 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 - Social history:: Smoking status: Reported history of juuling and/or vaping. ROS: 10:50 Abdomen/GI: Negative for abdominal pain, nausea, vomiting, diarrhea, and constipation, kb 10:50 Constitutional: Positive for body aches, chills, fatigue, fever, malaise, 10:50 ENT: Positive for sore throat, 10:50 Respiratory: Positive for cough, 10:50 Neuro: Positive for headache, 10:50 All other systems are negative, Exam: 10:50 Constitutional: This is a well developed, well nourished patient who is awake, alert, kb and in no acute distress. Head/Face: Normocephalic, atraumatic. Cardiovascular: Regular rate Respiratory: Respirations even and unlabored. No increased work of breathing. Talking in full sentences Abdomen/GI: Soft, non-tender. No distention Skin: Warm, dry with normal turgor. Normal color. MS/ Extremity: Pulses equal, no cyanosis. Neurovascular intact. Full, normal range of motion. Neuro: Awake and alert, GCS 15, oriented to person, place, time, and situation. Moves all extremities. Normal gait. 10:50 ENT: Posterior pharynx: Airway: normal, no evidence of obstruction, Tonsils: bilaterally enlarged, with erythema, Uvula: normal, midline, swelling, that is mild, erythema, that is moderate, Vital Signs: 09:21 BP 143 / 95; Pulse 78; Resp 16 S; Temp 97.9(O); Pulse Ox 100% on R/A; Weight 88.45 kg kc6 (R); Height 5 ft. 9 in. (R); 09:21 Body Mass Index 28.80 (88.45 kg, 175.26 cm) kc6 MDM: 09:08 Patient medically screened. kb 10:51 Differential diagnosis: strep, flu, covid, uri, mono. Data reviewed: vital signs, kb nurses notes. Counseling: I had a detailed discussion with the patient and/or guardian regarding the historical points, exam findings, and any diagnostic results supporting the discharge/admit diagnosis, lab results, the need for outpatient follow up, a family practitioner, to return to the emergency department if symptoms worsen or persist or if there are any questions or concerns that arise at home. 03/26 09:14 Order name: Flu; Complete Time: 10:06 kb 03/26 09:14 Order name: COVID-19 SARS RT PCR; Complete Time: 10:17 kb 03/26 09:14 Order name: [place] Screen Profile; Complete Time: 10:01 kb 03/26 09:14 Order name: Strep; Complete Time: 10:06 kb 03/26 09:14 Order name: IV Start; Complete Time: 09:25 kb Administered Medications: 09:34 Drug: Ketorolac IVP 15 mg IVP once Route: IVP; Site: right antecubital; kc6 10:27 Follow up: Response: No adverse reaction; Pain is unchanged, physician notified kc6 09:34 Drug: NS 0.9% IV 1000 ml IV at 1 bolus Per protocol; 1000 mL bolus Route: IV; Rate: 1 kc6 bolus; Site: right antecubital; 10:27 Follow up: Response: No adverse reaction; IV Status: Completed infusion; IV Intake: kc6 1000ml 10:42 Drug: Amoxicillin-Clavulanate PO 875 mg PO once Route: PO; kc6 10:45 Follow up: Response: No adverse reaction kc6 Disposition: 11:44 Co-signature as Attending Physician, Kishore Chavira MD I reviewed the patient's care rt provided by the Advanced Practice Provider and agree with the diagnosis and treatment plan. Disposition Summary: 03/26/23 10:31 Discharge Ordered Notes: Location: Home kb Condition: Stable kb Diagnosis - Streptococcal pharyngitis kb Followup: kb - With: Emergency Department - When: As needed - Reason: Worsening of condition Followup: kb - With: Private Physician - When: 2 - 3 days - Reason: Recheck today's complaints, Continuance of care, Re-evaluation by your physician Discharge Instructions: - Discharge Summary Sheet kb - Strep Throat, Adult, [id number] kb Forms: - Medication Reconciliation Form kb - Thank You Letter kb - Antibiotic Education kb - Prescription Opioid Use kb - Patient Portal Instructions kb - Leadership Thank You Letter kb Prescriptions: - Augmentin 875-125 mg Oral Tablet - take 1 tablet ORAL route every 12 hours for 10 days; 20 tablet; Refills: 0, kb Product Selection Permitted Signatures: Dispatcher [employer] Elisabet Vazquez, PIPE TESTER-C Nohemi Snow RN RN kc6 Kishore Chavira MD MD rt Corrections: (The following items were deleted from the chart) 09:22 09:22 PSHx: back; kc6 kc6
[2023-03-26] MEDS ORDERED: AMOX/K CLAV 875 MG TAB ONE (10:51)
[2023-03-26 11:21] VITALS: BP 143/95; TEMP 97.9; O2SAT 100
== END 2023-03-26 10:43 | disposition home or self-care (01) ==
LOC: ER 09:03
DX: J02.0 Streptococcal pharyngitis (principal); Z20.822 Contact with and (suspected) exposure to COVID-19; I10 Essential (primary) hypertension
CPT/HCPCS: 36415; 86308; 87081; 87635; 87804 ×2; J7030

== ENCOUNTER → 2023-07-07 | Emergency (ER) | payer OTHER ==
[~2023-07-07] MED LIST: DIAZEPAM 5 MG TABLET ONE; LORazepam 2 MG/ML VIAL ONE; NA CHLORIDE 0.9% 1,000 ML ONE; ONDANSETRON 4 MG/2 ML VIAL ONE; POTASSIUM 25 MEQ EFFERV TAB ONE
[2023-07-07 09:19] LABS: Absolute Lymphocytes (CBC) 2.1 K/uL (0.7-4.9); Lymphocytes % 14.4 % (15.3-44.8); MPV 7.5 fL (7.6-11.3); Platelets 386 thou/uL (152-406); RBC Red Blood Cell Count 4.78 M/uL (3.86-4.86)
[2023-07-07 09:40] LABS: Albumin 4.3 g/dL (3.4-5.0); Bilirubin Direct 0.4 mg/dL (0-0.2); Bilirubin Indirect, Calculated 1.4 mg/dL (0.2-0.8); Bilirubin Total 1.8 mg/dL (0.2-1.0); Magnesium 1.7 mg/dL (1.6-2.4); Potassium 3.2 mEq/L (3.5-5.1); Protein, Total 8.7 g/dL (6.4-8.2); Troponin High Sensitivity 8.7 pg/mL (<58.9)
--- NOTE | 2023-07-07 10:31 | RAD REPORT ---
EXAM DESCRIPTION: Margie Single View07/07/2023 10:19 am CLINICAL HISTORY: Chest pain COMPARISON: 2021 FINDINGS: The lungs appear clear of acute infiltrate. The heart is normal size IMPRESSION: No acute abnormalities displayed
--- NOTE | 2023-07-07 10:39 | ER ---
Nurse's Notes [facility] Name: Felicia Cheung Age: 37 yrs Sex: Female : 1985 Arrival Date: 07/07/2023 Time: 08:54 Bed 8 Private MD: Diagnosis: Panic attack Presentation: 07/07 09:04 Chief complaint: Patient states: CP, stress, anxiety, N/V, tingling of arms/hands ll1 started yesterday. Coronavirus screen: Client denies travel out of the [place] in the last 14 days. At this time, the client does not indicate any symptoms associated with coronavirus-19. Ebola Screen: Patient denies travel to an Ebola-affected area in the 21 days before illness onset. Initial Sepsis Screen: Does the patient meet any 2 criteria? No. Patient's initial sepsis screen is negative. Does the patient have a suspected source of infection? No. Patient's initial sepsis screen is negative. Risk Assessment: Do you want to hurt yourself or someone else? Patient reports no desire to harm self or others. Onset of symptoms was July 06, 2023. 09:04 Method Of Arrival: Ambulatory ll1 09:04 Acuity: COMPA 3 ll1 Triage Assessment: 09:06 General: Appears uncomfortable, Behavior is cooperative, appropriate for age, anxious, ll1 restless. Pain: Complains of pain in chest Quality of pain is described as aching, pressure. Cardiovascular: Reports chest pain, lightheadedness, shortness of breath. GI: Reports nausea, vomiting. Historical: - Allergies: 09:04 No Known Drug Allergies; ll1 - PMHx: 09:04 angina pectoris; Endometriosis; Gastroesophageal reflux disease; Herniated Disc L5; ll1 Hypertension; - PSHx: 09:04 Appendectomy; section; lumbar fusion 2022; ll1 - Immunization history:: Adult Immunizations up to date. Assessment: 09:27 Reassessment: No changes from previously documented assessment. Patient and/or family ll1 updated on plan of care and expected duration. Pain level reassessed. Patient is alert, oriented x 3, equal unlabored respirations, skin warm/dry/pink. 09:51 Reassessment: No changes from previously documented assessment. Patient and/or family ll1 updated on plan of care and expected duration. Pain level reassessed. Patient is alert, oriented x 3, equal unlabored respirations, skin warm/dry/pink. 10:37 Reassessment: No changes from previously documented assessment. Evin Evans at BS. ll1 11:14 Reassessment: No changes from previously documented assessment. Patient and/or family ll1 updated on plan of care and expected duration. Pain level reassessed. Patient is alert, oriented x 3, equal unlabored respirations, skin warm/dry/pink. 11:26 Reassessment: No changes from previously documented assessment. Patient and/or family ll1 updated on plan of care and expected duration. Pain level reassessed. Patient is alert, oriented x 3, equal unlabored respirations, skin warm/dry/pink. Vital Signs: 09:04 BP 168 / 101; Pulse 120; Resp 18; Temp 98.1; Pulse Ox 99% ; ll1 09:27 Pulse 88; Resp 17; Pulse Ox 100% on R/A; ll1 10:37 BP 146 / 78; Pulse 76; Resp 17; Pulse Ox 98% ; ll1 11:13 BP 143 / 93; Pulse 83; ll1 ED Course: 08:57 Patient arrived in ED. mg5 08:59 Courtney Evans PA-C is PHCP. sb4 08:59 Kishore Chavira MD is Attending Physician. sb4 09:03 Arm band placed on Patient placed in an exam room, on a stretcher. ll1 09:05 Triage completed. ll1 09:06 Adama Winn, AMI is Primary Nurse. ll1 09:10 Inserted saline lock: 22 gauge in left antecubital area, using aseptic technique. Blood ll1 collected. 10:21 XRAY Chest (1 view) In Process Unspecified. EDMS 11:27 IV discontinued, intact, bleeding controlled, No redness/swelling at site. Pressure ll1 dressing applied. Administered Medications: 09:26 Drug: Ativan IVP 1 mg IVP once Route: IVP; Site: right antecubital; ll1 11:13 Follow up: Response: No adverse reaction; Anxiety decreased ll1 09:26 Drug: Ondansetron IVP 4 mg IVP once; over 2 minutes Route: IVP; Site: right antecubital;ll1 11:13 Follow up: Response: No adverse reaction ll1 09:26 Drug: NS 0.9% IV 1000 ml IV at 1 bolus Per protocol; 1000 mL bolus Route: IV; Rate: 1 ll1 bolus; Site: right antecubital; 11:13 Follow up: IV Status: Completed infusion; IV Intake: 1000ml 1 09:51 Drug: Potassium PO Effervescent Tablet 50 mEq PO once; dissolve in 4 ounces of water or ll1 juice Route: PO; 11:13 Follow up: Response: No adverse reaction 1 11:04 Drug: Diazepam PO 5 mg PO once Route: PO; ll1 11:26 Follow up: Response: No adverse reaction [facility] 11:12 Drug: Ondansetron IVP 4 mg IVP once; over 2 minutes Route: IVP; Site: right antecubital;1 11: Follow up: Response: No adverse reaction [facility] Intake: 11:13 IV: 1000ml; Total: 1000ml. 1 Outcome: 10:39 Discharge ordered by MD. suarez 11:27 Patient left the ED. [facility] Signatures: Dispatcher [employer] EDAdama Barr RN RN ll1 Courtney Evans, PA-C PA-C sb4 Veda Gusman mg5
--- NOTE | 2023-07-07 10:40 | EDPHYS ---
Physician Documentation [facility] Name: Felicia Cheung Age: 37 yrs Sex: Female : 1985 Arrival Date: 07/07/2023 Time: 08:54 Bed 8 Private MD: ED Physician Kishore Chavira HPI: 07/07 09:04 This 37 yrs old Female presents to ER via Unassigned with complaints of Chest Pain. sb4 09:05 The patient or guardian reports chest pain that is located primarily in the chest sb4 diffusely. The pain radiates to the left arm. Associated signs and symptoms: Pertinent positives: nausea, palpitations, vomiting. The chest pain is described as tightness. Duration: The patient or guardian reports a single episode, that is still ongoing, and unchanged, that lasted 24 hour(s). The patient has not experienced similar symptoms in the past. The patient has not recently seen a physician. patient found out yesterday that her has been having an emotional affair for 1 year. she has been experiencing chest pain radiating down her left arm, nausea/vomiting since. Historical: - Allergies: 09:04 No Known Drug Allergies; ll1 - PMHx: 09:04 angina pectoris; Endometriosis; Gastroesophageal reflux disease; Herniated Disc L5; ll1 Hypertension; - PSHx: 09:04 Appendectomy; section; lumbar fusion 2022; ll1 - Immunization history:: Adult Immunizations up to date. ROS: 09:05 Constitutional: Negative for fever, chills, and weight loss, sb4 09:05 Cardiovascular: Positive for chest pain, 09:05 Psych: Positive for anxiety, 09:05 All other systems are negative, Exam: 09:05 Head/Face: Normocephalic, atraumatic. Eyes: Extra-ocular motions intact. Periorbital sb4 areas with no swelling, redness, or edema. ENT: Mucous membranes moist. Respiratory: Lungs have equal breath sounds bilaterally, clear to auscultation and percussion. No rales, rhonchi or wheezes noted. No increased work of breathing, no retractions or nasal flaring. Abdomen/GI: Soft, non-tender, no distension. Skin: Warm, dry with normal turgor. Normal color with no rashes, no lesions, and no evidence of cellulitis. MS/ Extremity: Pulses equal, no cyanosis. Neurovascular intact. Full, normal range of motion. Neuro: Awake and alert, GCS 15, oriented to person, place, time, and situation. Motor strength 5/5 in all extremities. Sensory grossly intact. 09:05 Constitutional: The patient appears alert, awake, anxious, restless, crying 09:05 Cardiovascular: Rate: tachycardic, Rhythm: regular, Pulses: no pulse deficits are appreciated, Vital Signs: 09:04 BP 168 / 101; Pulse 120; Resp 18; Temp 98.1; Pulse Ox 99% ; ll1 09:27 Pulse 88; Resp 17; Pulse Ox 100% on R/A; ll1 10:37 BP 146 / 78; Pulse 76; Resp 17; Pulse Ox 98% ; ll1 11:13 BP 143 / 93; Pulse 83; ll1 MDM: 08:59 Patient medically screened. sb4 09:05 Differential diagnosis: anxiety, chest wall pain, pleurisy, pulmonary embolus. sb4 10:38 Data reviewed: vital signs, nurses notes, lab test result(s), EKG, radiologic studies, sb4 and as a result, I will discharge patient. Scoring Tools HEART Score: History: ECG: Age: Risk Factors: 1 or 2 risk factors (1), Troponin: Total Score = 1. Counseling: I had a detailed discussion with the patient and/or guardian regarding the historical points, exam findings, and any diagnostic results supporting the discharge/admit diagnosis, lab results, radiology results, to return to the emergency department if symptoms worsen or persist or if there are any questions or concerns that arise at home. 07/07 09:04 Order name: Basic Metabolic Panel; Complete Time: 09:41 sb4 07/07 09:04 Order name: CBC with Diff; Complete Time: 09:25 sb4 07/07 09:04 Order name: D-Dimer; Complete Time: 09:38 sb4 07/07 09:04 Order name: LFT's; Complete Time: 09:41 sb4 07/07 09:04 Order name: Magnesium; Complete Time: 09:41 sb4 07/07 09:04 Order name: Troponin HS; Complete Time: 09:41 sb4 07/07 09:04 Order name: XRAY Chest (1 view); Complete Time: 10:35 sb4 07/07 09:04 Order name: EKG; Complete Time: 09:07/07 09:04 Order name: Cardiac monitoring; Complete Time: :07/07 09:04 Order name: EKG - Nurse/Tech; Complete Time: :07/07 09:04 Order name: IV Saline Lock; Complete Time: 09:12 07/07 09:04 Order name: Labs collected and sent; Complete Time: :07/07 09:04 Order name: O2 Per Protocol; Complete Time: :07/07 09:04 Order name: O2 Sat Monitoring; Complete Time: : EC: Rate is 80 beats/min. Rhythm is regular, Normal Sinus Rhythm. QRS [place] is Normal. VA sb4 interval is normal at 152 msec. QRS interval is normal at 86 msec. QT interval is normal at 386 msec. No Q waves. T waves are Normal. No ST changes noted. Clinical impression: Normal ECG and No evidence of ischemia. Interpreted by me. Reviewed by me. Administered Medications: : Drug: Ativan IVP 1 mg IVP once Route: IVP; Site: right antecubital; ll1 11:13 Follow up: Response: No adverse reaction; Anxiety decreased ll1 09:26 Drug: Ondansetron IVP 4 mg IVP once; over 2 minutes Route: IVP; Site: right antecubital;ll1 11:13 Follow up: Response: No adverse reaction ll1 09:26 Drug: NS 0.9% IV 1000 ml IV at 1 bolus Per protocol; 1000 mL bolus Route: IV; Rate: 1 ll1 bolus; Site: right antecubital; 11:13 Follow up: IV Status: Completed infusion; IV Intake: 1000ml ll1 09:51 Drug: Potassium PO Effervescent Tablet 50 mEq PO once; dissolve in 4 ounces of water or ll1 juice Route: PO; 11:13 Follow up: Response: No adverse reaction ll1 11:04 Drug: Diazepam PO 5 mg PO once Route: PO; ll1 11:26 Follow up: Response: No adverse reaction ll1 11:12 Drug: Ondansetron IVP 4 mg IVP once; over 2 minutes Route: IVP; Site: right antecubital;ll1 11:26 Follow up: Response: No adverse reaction ll1 Disposition: 11:36 Co-signature as Attending Physician, Kishore Chavira MD I reviewed the patient's care rt provided by the Advanced Practice Provider and agree with the diagnosis and treatment plan. Disposition Summary: 07/07/23 10:39 Discharge Ordered Notes: Location: Home sb4 Problem: new sb4 Symptoms: have improved sb4 Condition: Stable sb4 Diagnosis - Panic attack sb4 Followup: sb4 - With: Emergency Department - When: As needed - Reason: Trouble breathing, Worsening of condition Discharge Instructions: - Discharge Summary Sheet sb4 - Panic Attack, [id number] sb4 Forms: - Medication Reconciliation Form sb4 - Thank You Letter sb4 - Antibiotic Education sb4 - Prescription Opioid Use sb4 - Patient Portal Instructions sb4 - Leadership Thank You Letter sb4 Prescriptions: - Hydroxyzine HCl 25 mg Oral Tablet - take 1 tablet ORAL route every 6 hours As needed; 30 tablet; Refills: 0, sb4 Product Selection Permitted Signatures: Dispatcher [employer] Adama Daniels RN RN ll1 Courtney Evans PA-C PAMarilynnC sb4 Kishore Chavira MD MD rt
[2023-07-07 11:53] VITALS: BP 143/93; TEMP 98.1; O2SAT 98
== END ==
LOC: ER 08:54
DX: F41.0 Panic disorder [episodic paroxysmal anxiety] (principal); I10 Essential (primary) hypertension
CPT/HCPCS: 93005; 85025; 80048; 36415; 83735; 85379; 80076; 84484; 71045; J2405 ×2; J7030

== ENCOUNTER → 2023-08-19 | Emergency (ER) | payer OTHER, SELFPAY ==
[~2023-08-19] MED LIST changes: -DIAZEPAM 5 MG TABLET ONE; +FAMOTIDINE 20 MG/2 ML VIAL IV ONE; -LORazepam 2 MG/ML VIAL ONE; +MORPHINE 4 MG/ML SYR ONE; -POTASSIUM 25 MEQ EFFERV TAB ONE
[2023-08-19 11:07] LABS: Specific Gravity 1.027 (1.005-1.030)
[2023-08-19 11:08] LABS: Absolute Eosinophils 0.2 K/uL (0-0.5); Basophils % 0.6 % (0-1.3); Eosinophils % 3.3 % (0-4.4); Hematocrit 37.3 % (36.0-45.0); Hemoglobin 12.6 g/dL (12.0-15.0); Lymphocytes % 18.7 % (15.3-44.8); MCV 91.1 fL (80-100); MPV 7.7 fL (7.6-11.3); Platelets 296 thou/uL (152-406)
[2023-08-19 11:10] LABS: Specific Gravity 1.027 (1.005-1.030); Urine Bacteria None Seen /HPF (<20); Urine Bilirubin NEGATIVE (Negative); Urine Blood Negative (Negative); Urine Clarity Clear (Clear); Urine Color Yellow (Yellow); Urine Glucose NEGATIVE (Negative); Urine Mucus Slight /HPF (None Seen); Urine Protein TRACE (Negative); Urine RBC <5 /HPF (None Seen); Urine Urobilinogen Normal (Normal)
[2023-08-19 11:27] LABS: Albumin 3.5 g/dL (3.4-5.0); Bilirubin Total 0.2 mg/dL (0.2-1.0); Globulin 3.5 g/dL (2.3-3.5)
--- NOTE | 2023-08-19 11:54 | RAD REPORT ---
EXAM DESCRIPTION: CT - Abdomen Pelvis W Contrast - 08/19/2023 11:22 am CLINICAL HISTORY: Abdominal pain COMPARISON: 2022 TECHNIQUE: Computed axial tomography of the abdomen pelvis was obtained. 100 cc Isovue-300 was admin istered intravenously. Oral contrast was not requested which limits evaluation of bowel and appendix All CT scans are performed using dose optimization technique as appropriate and may include automated exposure control or mA/KV adjustment according to patient size. FINDINGS: The liver, spleen, pancreas, adrenal and kidneys appear unremarkable. There is no evidence of diverticulitis. No adnexal mass. There appears to be a tampon within the vagina. Postsurgical changes lumbar spine IMPRESSION: No acute abnormality is displayed.
--- NOTE | 2023-08-19 11:59 | ER ---
Nurse's Notes [facility] Name: Felicia Cheung Age: 37 yrs Sex: Female : 1985 Arrival Date: 08/19/2023 Time: 10:10 Bed 12 Private MD: Diagnosis: Abdominal pain, unspecified Presentation: 08/18 10:32 Chief complaint: Patient states: abd pain , hx of GI issues. Coronavirus screen: At iw this time, the client does not indicate any symptoms associated with coronavirus-19. Ebola Screen: Patient negative for fever greater than or equal to 101.5 degrees Fahrenheit, and additional compatible Ebola Virus Disease symptoms Patient denies exposure to infectious person. Patient denies travel to an Ebola-affected area in the 21 days before illness onset. No symptoms or risks identified at this time. Initial Sepsis Screen: Does the patient meet any 2 criteria? No. Patient's initial sepsis screen is negative. Does the patient have a suspected source of infection? No. Patient's initial sepsis screen is negative. Risk Assessment: Do you want to hurt yourself or someone else? Patient reports no desire to harm self or others. Onset of symptoms. 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 - Social history:: Smoking status: Patient denies any tobacco usage or history of. Smoking status: Patient reports the use of cigarette tobacco products, denies chronic smoking, but will smoke occasionally. - Family history:: not pertinent. - Hospitalizations: : No recent hospitalization is reported. Screenin:33 [facility] ED Fall Risk Assessment (Adult) History of falling in the last 3 months, mb9 including since admission No falls in past 3 months (0 pts) Confusion or Disorientation No (0 pts) Intoxicated or Sedated No (0 pts) Impaired Gait No (0 pts) Mobility Assist Device Used No (0 pt) Altered Elimination No (0 pt) Score/Fall Risk Level 0 - 2 = Low Risk Oriented to surroundings, Maintained a safe environment, Educated pt \T\ family on fall prevention, incl call for assistance when getting out of bed. Abuse screen: Denies threats or abuse. Nutritional screening: No deficits noted. Tuberculosis screening: No symptoms or risk factors identified. Assessment: 10:56 General: Appears uncomfortable, Behavior is anxious. Pain: Complains of pain in abdomen mb9 Pain does not radiate. Pain currently is 8 out of 10 on a pain scale. Quality of pain is described as crampy, pressure, Pain began 2-3 days ago. Is intermittent. Neuro: Palencia Agitation-Sedation Scale (RASS): 0 - Alert and Calm Level of Consciousness is awake, alert, obeys commands, Oriented to person, place, time, situation, Appropriate for age. Cardiovascular: Heart tones S1 S2 present Patient's skin is warm and dry. Respiratory: Airway is patent Respiratory effort is even, unlabored, Respiratory pattern is regular, symmetrical, Breath sounds are clear bilaterally. GI: Abdomen is round non-distended, Bowel sounds present X 4 quads. Abd is soft Abdomen is tender to palpation in right upper quadrant and left upper quadrant Reports constipation, nausea. : No signs and/or symptoms were reported regarding the genitourinary system. : Urine is clear. EENT: No signs and/or symptoms were reported regarding the EENT system. Derm: Skin is pink, warm \T\ dry. Musculoskeletal: Range of motion: intact in all extremities. 11:55 Reassessment: No changes from previously documented assessment. Patient and/or family mb9 updated on plan of care and expected duration. Pain level reassessed. Patient is alert, oriented x 3, equal unlabored respirations, skin warm/dry/pink. 12:03 Reassessment: Discharge pending completion of fluids. mb9 Vital Signs: 10:32 BP 149 / 85; Pulse 92; Resp 16; Temp 98.1; Pulse Ox 100% on R/A; Weight 88.45 kg; iw Height 5 ft. 8 in. ; Pain 9/10; 12:03 BP 139 / 95; Pulse 74; Resp 18; Pulse Ox 100% ; Pain 8/10; mb9 10:32 Body Mass Index 29.65 (88.45 kg, 172.72 cm) iw 10:32 Pain Scale: Adult iw 12:03 Pain Scale: Adult mb9 ED Course: 10:13 Patient arrived in ED. mg5 10:17 Jarrell Amato MD is Attending Physician. rn 10:32 Triage completed. iw 10:33 Jillian Miguel, RN is Primary Nurse. mb9 10:33 Arm band placed on. mb9 10:34 Placed in gown. Bed in low position. Call light in reach. Side rails up X 1. Client mb9 placed on continuous cardiac and pulse oximetry monitoring. NIBP monitoring applied. 10:37 Provided Education on: press call light when needing to use restroom. mb9 10:37 No provider procedures requiring assistance completed. mb9 10:55 Initial lab(s) drawn, by me, sent to lab. Urine collected: clean catch specimen, clear. mb9 Inserted saline lock: 20 gauge in right antecubital area, using aseptic technique. 10:58 Door closed. Noise minimized. Warm blanket given. One-on-one care X 15 minutes. mb9 11:[address] via wheelchair. rs5 12:20 IV discontinued, intact, bleeding controlled, No redness/swelling at site. Pressure mb9 dressing applied. Administered Medications: 10:42 Drug: NS 0.9% IV 1000 ml IV at 1 bolus Per protocol; 1000 mL bolus Route: IV; Rate: 1 mb9 bolus; Site: right antecubital; 12:20 Follow up: Response: No adverse reaction; IV Status: Completed infusion mb9 10:42 Drug: Ondansetron IVP 4 mg IVP once; over 2 minutes Route: IVP; Site: right antecubital;mb9 12:20 Follow up: Response: No adverse reaction mb9 10:46 Drug: Famotidine IVP 20 mg IVP once; dilute with 10 mL 0.9% NaCl; give over 2 minutes mb9 Route: IVP; Site: right antecubital; 12:20 Follow up: Response: No adverse reaction mb9 10:50 Drug: morphine IVP or IV 4 mg IVP once over 4 mins Route: IVP; Infused Over: 4 mins; mb9 Site: right antecubital; 12:21 Follow up: Response: No adverse reaction mb9 12:03 Drug: morphine IVP or IV 4 mg IVP once over 4 mins Route: IVP; Infused Over: 4 mins; mb9 Site: right antecubital; 12:20 Follow up: Response: No adverse reaction mb9 Medication: 10:33 VIS not applicable for this client. mb9 Outcome: 11:59 Discharge ordered by . rn 12:21 Discharged to home ambulatory, with family, hawk 12:21 Condition: stable 12:21 Discharge instructions given to patient, family, Instructed on discharge instructions, follow up and referral plans. Demonstrated understanding of instructions, follow-up care, medications, Prescriptions given X 1, 12:21 Patient left the ED. mb9 Signatures: Lynnette Fletcher RN RN iw Jarrell Amato MD MD rn Breneman, Mary Beth, RN RN mb9 Artie Zavala RN RN rs5 Veda Gusman mg5 Corrections: (The following items were deleted from the chart) 10:34 10:32 BP 149 / 85; Pulse 92bpm; Resp 16bpm; Pulse Ox 100% RA; Temp 98.1F; iw iw
--- NOTE | 2023-08-19 11:59 | EDPHYS ---
Physician Documentation [facility] Name: Felicia Cheung Age: 37 yrs Sex: Female : 1985 Arrival Date: 08/19/2023 Time: 10:10 Bed 12 Private MD: ED Physician Jarrell Amato HPI: 08/18 11:16 This 37 yrs old Female presents to ER via Ambulatory with complaints of Abdominal Pain. rn 11:16 The patient presents with abdominal pain in the periumbilical area. rn 11:16 Onset: The symptoms/episode began/occurred yesterday. The symptoms do not radiate. rn Associated signs and symptoms: Pertinent positives: nausea, Pertinent negatives: blood in stools. The symptoms are described as crampy. Modifying factors: The symptoms are alleviated by nothing, the symptoms are aggravated by nothing. Severity of pain: At its worst the pain was moderate in the emergency department the pain is unchanged. The patient has experienced similar episodes in the past. Patient with history of chronic abdominal pain, reports another episode of abdominal pain since yesterday. Has been treated for inflammatory bowel disease in the past but states GI not sure that she actually has it. Patient with history of GERD as well as gastric ulcers. Patient reports feels similar to previous ulcers. Denies hematemesis.. 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 - Social history:: Smoking status: Patient denies any tobacco usage or history of. Smoking status: Patient reports the use of cigarette tobacco products, denies chronic smoking, but will smoke occasionally. - Family history:: not pertinent. - Hospitalizations: : No recent hospitalization is reported. ROS: 11:16 Constitutional: Negative for fever, chills, and weight loss, Cardiovascular: Negative rn for chest pain, palpitations, and edema, Respiratory: Negative for shortness of breath, cough, wheezing, and pleuritic chest pain, Abdomen/GI: Positive for abdominal pain Back: Negative for injury and pain, MS/Extremity: Negative for injury and deformity, Skin: Negative for injury, rash, and discoloration, Neuro: Negative for headache, weakness, numbness, tingling, and seizure, Exam: 11:16 Constitutional: This is a well developed, well nourished patient who is awake, alert, rn tearful and appears anxious Head/Face: Normocephalic, atraumatic. Cardiovascular: Regular rate and rhythm. No pulse deficits. Respiratory: No increased work of breathing, no retractions or nasal flaring. Abdomen/GI: Soft, mid abdominal tenderness. No rebound or guarding Vital Signs: 10:32 BP 149 / 85; Pulse 92; Resp 16; Temp 98.1; Pulse Ox 100% on R/A; Weight 88.45 kg; iw Height 5 ft. 8 in. ; Pain 9/10; 12:03 BP 139 / 95; Pulse 74; Resp 18; Pulse Ox 100% ; Pain 8/10; mb9 10:32 Body Mass Index 29.65 (88.45 kg, 172.72 cm) iw 10:32 Pain Scale: Adult iw 12:03 Pain Scale: Adult mb9 MDM: 10:17 Patient medically screened. rn 11:58 Differential diagnosis: bowel obstruction, diverticulitis, gastritis, non-specific abd rn pain, Peptic Ulcer Disease, Perf. Duodenal Ulcer, Perf. Gastric Ulcer, Ureterolithiasis, urinary tract infection. Data reviewed: vital signs, nurses notes, lab test result(s), radiologic studies, CT scan, and as a result, I will discharge patient. Counseling: I had a detailed discussion with the patient and/or guardian regarding the historical points, exam findings, and any diagnostic results supporting the discharge/admit diagnosis, lab results, radiology results, the need for outpatient follow up, to return to the emergency department if symptoms worsen or persist or if there are any questions or concerns that arise at home. Special discussion: Based on the patient's Hx, exam, and Dx evaluation, there is no indication for emergent surgery or inpatient Tx. It is understood by the patient/guardian that if the Sx's persist or worsen they need to return immediately for re-evaluation. I discussed with the patient/guardian in detail that at this point there is no indication for admission to the hospital. It is understood, however, that if the symptoms persist or worsen the patient needs to return immediately for re-evaluation. ED course: No acute findings and blood or CT abdomen pelvis. Urine negative. UPT negative. Patient feeling better. Has appointment with GI doctor tomorrow, return precautions given and understood. I have personally reviewed all of the results, including but not limited to blood tests and imaging deemed necessary to safely discharge this patient at this time. All results given to and printed out for patient. I personally went over all the results with the patient and answered all questions. Patient will follow-up with PCP and or specialist as discussed. Return precautions given and understood.. 08/18 10:37 Order name: CBC with Diff rn 08/18 10:37 Order name: CMP rn 08/18 10:37 Order name: Lipase rn 08/18 10:37 Order name: Urinalysis w/ reflexes rn 08/18 11:08 Order name: Test, Urine; Complete Time: 11:55 EDDC 08/18 11:10 Order name: Urinalysis w/ reflexes; Complete Time: 11:55 EDDC 08/18 11:10 Order name: CBC with Automated Diff; Complete Time: 11:55 EDDC 08/18 11:27 Order name: Comprehensive Metabolic Panel; Complete Time: 11:55 EDDC 08/18 11:27 Order name: Lipase; Complete Time: 11:55 EDDC 08/18 10:37 Order name: CT Abd/Pelvis - IV Contrast Only rn 08/18 11:55 Order name: CT; Complete Time: 11:55 EDDC 08/18 10:37 Order name: IV Saline Lock; Complete Time: 10:55 rn 08/18 10:37 Order name: Labs collected and sent; Complete Time: 10:55 rn Administered Medications: 10:42 Drug: NS 0.9% IV 1000 ml IV at 1 bolus Per protocol; 1000 mL bolus Route: IV; Rate: 1 mb9 bolus; Site: right antecubital; 12:20 Follow up: Response: No adverse reaction; IV Status: Completed infusion mb9 10:42 Drug: Ondansetron IVP 4 mg IVP once; over 2 minutes Route: IVP; Site: right antecubital;mb9 12:20 Follow up: Response: No adverse reaction mb9 10:46 Drug: Famotidine IVP 20 mg IVP once; dilute with 10 mL 0.9% NaCl; give over 2 minutes mb9 Route: IVP; Site: right antecubital; 12:20 Follow up: Response: No adverse reaction mb9 10:50 Drug: morphine IVP or IV 4 mg IVP once over 4 mins Route: IVP; Infused Over: 4 mins; mb9 Site: right antecubital; 12:21 Follow up: Response: No adverse reaction mb9 12:03 Drug: morphine IVP or IV 4 mg IVP once over 4 mins Route: IVP; Infused Over: 4 mins; mb9 Site: right antecubital; 12:20 Follow up: Response: No adverse reaction mb9 Disposition Summary: 08/19/23 11:59 Discharge Ordered Notes: Location: Home rn Problem: new rn Symptoms: have improved rn Condition: Stable rn Diagnosis - Abdominal pain, unspecified rn Followup: rn - With: Private Physician - When: As needed - Reason: Recheck today's complaints, Re-evaluation by your physician Discharge Instructions: - Discharge Summary Sheet rn - Abdominal Pain, Adult rn Forms: - Medication Reconciliation Form rn - Thank You Letter rn - Antibiotic rn medication - Prescription Opioid Use rn - Patient Portal Instructions rn - Leadership Thank You Letter rn Prescriptions: - Tramadol 50 mg Oral Tablet - take 1 tablet ORAL route every 8 hours as needed; 12 tablet; Refills: 0, rn Product Selection Permitted Signatures: Dispatcher [employer] Lynnette Hernandez, RN Jarrell Roberto MD MD rn Breneman, Mary Beth, RN RN mb9
[2023-08-19 12:37] VITALS: BP 139/95; TEMP 98.1; O2SAT 100
== END ==
LOC: ER 10:10
DX: R10.9 Unspecified abdominal pain (principal)
CPT/HCPCS: 36415; 74177; 80053; 81001; 81025; 83690; 85025; J2405; J7030; Q9967

== ENCOUNTER 2023-10-01 09:46 | Emergency (ER) | payer OTHER ==
[2023-10-01] MEDS ORDERED: METHYLPREDNISOLONE 125 MG INJ ONE (10:11)
[2023-10-01] MEDS ORDERED: DIPHENHYDRAMINE 25 MG TAB/CAP ONE (10:12)
--- NOTE | 2023-10-01 10:12 | EDPHYS ---
Physician Documentation [facility] Name: Felicia Cheung Age: 37 yrs Sex: Female : 1985 Arrival Date: 10/01/2023 Time: 09:46 Bed 7 Private MD: ED Physician Franky Leahy HPI: 09/30 10:07 This 37 yrs old Female presents to ER via Ambulatory with complaints of Poison radha. sp3 10:07 29-year-old female with PMH above now presents to the ED with diffuse skin rash after sp3 doing yard work consistent with prior poison radha/contact dermatitis episodes. Rash is pruritic and diffuse in exposed areas. She denies any sloughing, bleeding, headache, chest pain, shortness of breath, airway compromise, abdominal pain, nausea, vomiting, diarrhea, or any other signs or symptoms on ROS at this time.. 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 - Infectious Disease History:: Denies. - Social history:: Smoking status: . ROS: 10:09 Constitutional: Negative for fever, chills, and weight loss, Eyes: Negative for injury, sp3 pain, redness, and discharge, ENT: Negative for injury, pain, and discharge, Neck: Negative for injury, pain, and swelling, Cardiovascular: Negative for chest pain, palpitations, and edema, Respiratory: Negative for shortness of breath, cough, wheezing, and pleuritic chest pain, Abdomen/GI: Negative for abdominal pain, nausea, vomiting, diarrhea, and constipation, Back: Negative for injury and pain, Neuro: Negative for headache, weakness, numbness, tingling, and seizure, Psych: Negative for depression, anxiety, suicide ideation, homicidal ideation, and hallucinations, Endocrine: Negative for neck swelling, polydipsia, polyuria, polyphagia, and marked weight changes, Hematologic/Lymphatic: Negative for swollen nodes, abnormal bleeding, and unusual bruising, 10:09 All other systems are negative, Exam: 10:09 Constitutional: This is a well developed, well nourished patient who is awake, alert, sp3 and in no acute distress. Head/Face: Normocephalic, atraumatic. Eyes: Pupils equal round and reactive to light, extra-ocular motions intact. Lids and lashes normal. Conjunctiva and sclera are non-icteric and not injected. Cornea within normal limits. Periorbital areas with no swelling, redness, or edema. ENT: Nares patent. No nasal discharge, no septal abnormalities noted. External auditory canals are clear. Oropharynx with no redness, swelling, or masses, exudates, or evidence of obstruction, uvula midline. Mucous membranes moist. Neck: Trachea midline, no thyromegaly or masses palpated, and no cervical lymphadenopathy. Supple, full range of motion without nuchal rigidity, or vertebral point tenderness. No Meningismus. Chest/axilla: Normal chest wall appearance and motion. Nontender with no deformity. No lesions are appreciated. Cardiovascular: Regular rate and rhythm with a normal S1 and S2. No gallops, murmurs, or rubs. Normal PMI, no JVD. No pulse deficits. Respiratory: Lungs have equal breath sounds bilaterally, clear to auscultation and percussion. No rales, rhonchi or wheezes noted. No increased work of breathing, no retractions or nasal flaring. Abdomen/GI: Soft, non-tender, with normal bowel sounds. No distension or tympany. No guarding or rebound. No evidence of tenderness throughout. Back: No spinal tenderness. No costovertebral tenderness. Full range of motion. MS/ Extremity: Pulses equal, no cyanosis. Neurovascular intact. Full, normal range of motion. Neuro: Awake and alert, GCS 15, oriented to person, place, time, and situation. Cranial nerves II-XII grossly intact. Motor strength 5/5 in all extremities. Sensory grossly intact. Cerebellar exam normal. Normal gait. Psych: Awake, alert, with orientation to person, place and time. Behavior, mood, and affect are within normal limits. 10:09 Skin: Diffuse maculopapular rash consistent with contact dermatitis due to poison radha toxin noted. Nikolsky sign negative and remainder of skin exam normal.. Vital Signs: 09:56 BP 155 / 104; Pulse 77; Resp 16; Temp 97.9; Pulse Ox 100% on R/A; Weight 88.45 kg; iw Height 5 ft. 8 in. ; 10:25 BP 135 / 86; Pulse 74; Resp 16; Temp 98.6; Pulse Ox 100% ; Pain 7/10; ll1 09:56 Body Mass Index 29.65 (88.45 kg, 172.72 cm) iw 10:25 Pain Scale: Adult ll1 MDM: 09:58 Patient medically screened. sp3 10:10 Data reviewed: vital signs, nurses notes, old medical records. ED course: 29-year-old sp3 female with chronic dermatitis due to poison radha. Will treat with IV Solu-Medrol and p.o. Benadryl with prescriptions for prednisone and Atarax and OTC Benadryl until symptom resolution.. Administered Medications: 10:19 Drug: diphenhydrAMINE PO 25 mg PO once Route: PO; iw 10:26 Follow up: Response: No adverse reaction ll1 10:20 Drug: MethylPREDNISolone Sodium Succinate IM 125 mg IM once Route: IM; Site: left iw gluteus; 10:26 Follow up: Response: No adverse reaction ll1 Disposition Summary: 10/01/23 10:11 Discharge Ordered Notes: Location: Home sp3 Condition: Stable sp3 Diagnosis - Poison radha, contact dermatitis sp3 Followup: sp3 - With: Private Physician - When: Upon discharge from the Emergency Department - Reason: Continuance of care Discharge Instructions: - Discharge Summary Sheet sp3 - Poison Radha Dermatitis sp3 Forms: - Medication Reconciliation Form sp3 - Antibiotic Education sp3 - Prescription Opioid Use sp3 - Patient Portal Instructions sp3 - Leadership Thank You Letter sp3 Prescriptions: - Hydroxyzine HCl 25 mg Oral Tablet - take 1 tablet ORAL route every 6 hours As needed; 30 tablet; Refills: 0, sp3 Product Selection Permitted - Prednisone 20 mg Oral Tablet - take 2 tablets ORAL route once daily for 5 days; 10 tablet; Refills: 0, Product sp3 Selection Permitted Signatures: Lynnette Fletcher RN RN Adama Winn RN RN ll1 Franky Leahy MD MD sp3
--- NOTE | 2023-10-01 10:12 | ER ---
Nurse's Notes [facility] Name: Felicia Cheung Age: 37 yrs Sex: Female : 1985 Arrival Date: 10/01/2023 Time: 09:46 Bed 7 Private MD: Diagnosis: Poison ayush, contact dermatitis Presentation: 09/30 09:55 Chief complaint: Patient states: poison ayush all over body since Friday. Coronavirus iw screen: At this time, the client does not indicate any symptoms associated with coronavirus-19. Ebola Screen: Patient negative for fever greater than or equal to 101.5 degrees Fahrenheit, and additional compatible Ebola Virus Disease symptoms Patient denies exposure to infectious person. Patient denies travel to an Ebola-affected area in the 21 days before illness onset. No symptoms or risks identified at this time. Initial Sepsis Screen: Does the patient meet any 2 criteria? No. Patient's initial sepsis screen is negative. Does the patient have a suspected source of infection? No. Patient's initial sepsis screen is negative. Risk Assessment: Do you want to hurt yourself or someone else? Patient reports no desire to harm self or others. Onset of symptoms was September 28, 2023. 09:55 Method Of Arrival: Ambulatory iw 09:55 Acuity: COMPA 4 iw 09:57 Acuity: COMPA 3 iw [employer]: 10:22 LMP N/A - Irregular menses, Not ll1 Historical: - Allergies: 09:56 No Known Allergies; iw - PMHx: 09:56 angina pectoris; Endometriosis; Gastroesophageal reflux disease; Herniated Disc L5; iw Hypertension; - PSHx: 09:56 Appendectomy; Appendectomy; section; lumbar fusion 2022; iw - Immunization history:: Adult Immunizations up to date. - Infectious Disease History:: Denies. - Social history:: Smoking status: . Screenin:02 [facility] ED Fall Risk Assessment (Adult) History of falling in the last 3 months, ll1 including since admission No falls in past 3 months (0 pts) Confusion or Disorientation No (0 pts) Intoxicated or Sedated No (0 pts) Impaired Gait No (0 pts) Mobility Assist Device Used No (0 pt) Altered Elimination No (0 pt) Score/Fall Risk Level 0 - 2 = Low Risk Maintained a safe environment, Hourly rounding (assess needs \T\ fall precautionary measures) done. Abuse screen: Denies threats or abuse. Nutritional screening: No deficits noted. Tuberculosis screening: No symptoms or risk factors identified. Assessment: 10:02 General: Appears uncomfortable, Behavior is calm, cooperative, Reports rash with ll1 itching to body since Friday. Pain: Denies pain. 10:21 Derm: Reports rash with itching all over since Friday. Was doing yard work. ll1 Vital Signs: 09:56 BP 155 / 104; Pulse 77; Resp 16; Temp 97.9; Pulse Ox 100% on R/A; Weight 88.45 kg; iw Height 5 ft. 8 in. ; 10:25 BP 135 / 86; Pulse 74; Resp 16; Temp 98.6; Pulse Ox 100% ; Pain 7/10; ll1 09:56 Body Mass Index 29.65 (88.45 kg, 172.72 cm) iw 10:25 Pain Scale: Adult ll1 ED Course: 09:48 Patient arrived in ED. mr 09:51 Franky Leahy MD is Attending Physician. sp3 09:56 Triage completed. iw 09:57 Arm band placed on. iw 10:01 Adama Winn RN is Primary Nurse. ll1 10:02 Patient has correct armband on for positive identification. Bed in low position. ll1 Provided Education on: ER procedures and process. 10:22 No provider procedures requiring assistance completed. Patient did not have IV access ll1 during this emergency room visit. Administered Medications: 10:19 Drug: diphenhydrAMINE PO 25 mg PO once Route: PO; iw 10:26 Follow up: Response: No adverse reaction ll1 10:20 Drug: MethylPREDNISolone Sodium Succinate IM 125 mg IM once Route: IM; Site: left iw gluteus; 10:26 Follow up: Response: No adverse reaction ll1 Medication: 10:02 VIS not applicable for this client. ll1 Outcome: 10:11 Discharge ordered by . sp3 10:25 Discharged to home ambulatory, ll1 10:25 Condition: stable 10:25 Discharge instructions given to patient, Instructed on discharge instructions, follow up and referral plans. medication usage, Demonstrated understanding of instructions, follow-up care, medications, Prescriptions given X 2, 10:26 Patient left the ED. ll1 Signatures: Jillian Wang, Reg Reg mr Lynnette Fletcher, RN RN iw Adama Winn RN RN ll1 Franky Leahy MD MD sp3 Corrections: (The following items were deleted from the chart) 10:22 10:02 Pain: Denies pain. 1 1
[2023-10-01 10:37] VITALS: BP 135/86; TEMP 98.6; O2SAT 100
== END 2023-10-01 10:26 | disposition home or self-care (01) ==
LOC: ER 09:46
DX: L25.5 Unspecified contact dermatitis due to plants, except food (principal)
CPT/HCPCS: 96372; 99284; J2919

== ENCOUNTER 2023-10-07 10:04 | Emergency (ER) | payer OTHER ==
[2023-10-07] MEDS ORDERED: predniSONE 20 MG TAB ONE (11:29)
[2023-10-07] MEDS ORDERED: DIPHENHYDRAMINE 25 MG TAB/CAP ONE (11:30)
[2023-10-07] MEDS ORDERED: IBUPROFEN 200 MG TAB PO ONE (11:30)
[2023-10-07] MEDS ORDERED: FAMOTIDINE 20 MG TAB ONE (11:30)
--- NOTE | 2023-10-07 11:31 | EDPHYS ---
Physician Documentation [facility] Name: Felicia Cheung Age: 37 yrs Sex: Female : 1985 Arrival Date: 10/07/2023 Time: 10:04 Bed 4 Private MD: See Farrell HPI: 10/06 11:20 This 37 yrs old Female presents to ER via Ambulatory with complaints of haydee Poison Radha, Hand Injury. 11:20 The patient or guardian reports decreased range of motion, pain. The complaints affect haydee the right hand diffusely. Context: The problem was sustained at home, resulted from a fall. Onset: The symptoms/episode began/occurred 3 day(s) ago. Modifying factors: The symptoms are alleviated by elevation, splinting, the symptoms are aggravated by movement. Associated signs and symptoms:. Historical: - Allergies: 10: No Known Allergies; iw - PMHx: : Endometriosis; angina pectoris; Gastroesophageal reflux disease; Herniated Disc L5; iw Hypertension; - PSHx: : Appendectomy; Appendectomy; section; lumbar fusion 2022; iw - Immunization history:: Adult Immunizations. - Infectious Disease History:: Denies. - Social history:: Smoking status: Patient denies any tobacco usage or history of. ROS: 11:25 Constitutional: Negative for fever, chills, and weight loss, Eyes: Negative for injury, haydee pain, redness, and discharge, ENT: Negative for injury, pain, and discharge, Neck: Negative for injury, pain, and swelling, Cardiovascular: Negative for chest pain, palpitations, and edema, Respiratory: Negative for shortness of breath, cough, wheezing, and pleuritic chest pain, Abdomen/GI: Negative for abdominal pain, nausea, vomiting, diarrhea, and constipation, Back: Negative for injury and pain, : Negative for injury, bleeding, discharge, and swelling, Neuro: Negative for headache, weakness, numbness, tingling, and seizure, Psych: Negative for depression, anxiety, suicide ideation, homicidal ideation, and hallucinations, Allergy/Immunology: Negative for hives, rash, and allergies, Endocrine: Negative for neck swelling, polydipsia, polyuria, polyphagia, and marked weight changes, Hematologic/Lymphatic: Negative for swollen nodes, abnormal bleeding, and unusual bruising, 11:25 MS/extremity: Positive for decreased range of motion, pain, swelling, tenderness, of the dorsum of right hand and outer aspect of right palm, 11:25 Skin: Positive for rash, diffusely, Exam: 11:25 Constitutional: This is a well developed, well nourished patient who is awake, alert, haydee and in no acute distress. Head/Face: Normocephalic, atraumatic. Eyes: Pupils equal round and reactive to light, extra-ocular motions intact. Lids and lashes normal. Conjunctiva and sclera are non-icteric and not injected. Cornea within normal limits. Periorbital areas with no swelling, redness, or edema. ENT: Nares patent. No nasal discharge, no septal abnormalities noted. Tympanic membranes are normal and external auditory canals are clear. Oropharynx with no redness, swelling, or masses, exudates, or evidence of obstruction, uvula midline. Mucous membranes moist. Neck: Trachea midline, no thyromegaly or masses palpated, and no cervical lymphadenopathy. Supple, full range of motion without nuchal rigidity, or vertebral point tenderness. No Meningismus. Chest/axilla: Normal chest wall appearance and motion. Nontender with no deformity. No lesions are appreciated. Cardiovascular: Regular rate and rhythm with a normal S1 and S2. No gallops, murmurs, or rubs. Normal PMI, no JVD. No pulse deficits. Respiratory: Lungs have equal breath sounds bilaterally, clear to auscultation and percussion. No rales, rhonchi or wheezes noted. No increased work of breathing, no retractions or nasal flaring. Abdomen/GI: Soft, non-tender, with normal bowel sounds. No distension or tympany. No guarding or rebound. No evidence of tenderness throughout. Back: No spinal tenderness. No costovertebral tenderness. Full range of motion. Neuro: Awake and alert, GCS 15, oriented to person, place, time, and situation. Cranial nerves II-XII grossly intact. Motor strength 5/5 in all extremities. Sensory grossly intact. Cerebellar exam normal. Normal gait. Psych: Awake, alert, with orientation to person, place and time. Behavior, mood, and affect are within normal limits. 11:25 Musculoskeletal/extremity: Circulation is intact in all extremities. Sensation intact. Compartment Syndrome exam of affected extremity: is normal. DVT Exam: pain, tenderness, that is moderate, of the dorsum of right hand and outer aspect of right palm, 11:25 Skin: contact dermatitis, Vital Signs: 10:25 BP 175 / 94; Pulse 67; Resp 18; Temp 97.6; Pulse Ox 100% ; Weight 89.81 kg; Pain 7/10; iw 10:58 BP 160 / 89; Pulse 69; Resp 18; Pulse Ox 100% on R/A; Pain 8/10; ld1 10:25 Pain Scale: Adult iw 10:58 Pain Scale: Adult ld1 MDM: 10:06 Patient medically screened. haydee 11:28 Differential diagnosis: closed fracture, contusion, abrasion. Data reviewed: vital haydee signs, nurses notes, radiologic studies, plain films. Consideration of Admission/Observation Escalation of care including admission/observation considered. I considered the following discharge prescriptions or medication management in the emergency department Medications were administered in the Emergency Department. See MAR. Independent interpretation of the following test(s) in the Emergency Department X-Ray: My interpretation is no fx. Test considered but Not performed: Labs: no labs. Historians other than the Patient: pt well informed. Care significantly affected by the following chronic conditions: Hypertension. 10/06 10:58 Order name: XRAY Hand RIGHT 3 View ld1 10/06 11:20 Order name: Splint - Ulnar Gutter; Complete Time: 11:34 haydee Administered Medications: 11:33 Not Given (Patient Refused): [id number] mg PO once ld1 11:33 Drug: diphenhydrAMINE PO 25 mg PO once Route: PO; ld1 11:33 Drug: Famotidine PO 40 mg PO once Route: PO; ld1 11:33 Drug: predniSONE PO 60 mg PO once Route: PO; ld1 Disposition Summary: 10/07/23 11:31 Discharge Ordered Notes: Location: Home haydee Problem: new haydee Symptoms: have improved haydee Condition: Stable haydee Diagnosis - Fall on same level, unspecified haydee - Pain in right hand haydee - Rash and other nonspecific skin eruption haydee - Allergic contact dermatitis due to plants, except food haydee Followup: haydee - With: Private Physician - When: 2 - 3 days - Reason: Recheck today's complaints, Continuance of care, Re-evaluation by your physician Followup: haydee - With: Faustino Esparza MD - When: 2 - 3 days - Reason: Recheck today's complaints, Re-evaluation by your physician Discharge Instructions: - Discharge Summary Sheet haydee - Contact Dermatitis haydee - Musculoskeletal Pain haydee - Poison Radha Dermatitis haydee - Rash, Adult haydee - Rash, Adult, [id number] haydee - Poison Radha Dermatitis, [id number] [facility] Forms: - Medication Reconciliation Form haydee - Antibiotic Education haydee - Prescription Opioid Use haydee - Patient Portal Instructions [facility] - Leadership Thank You Letter [facility] Prescriptions: - acetaminophen-codeine 300-30 mg Oral tablet - take 2 tablet ORAL route every 6 hours as needed for pain; 20 tablet; Refills: haydee 0, Product Selection Permitted - Benadryl 25 mg Oral Capsule - take 1 capsule ORAL route every 6 hours As needed; 30 tablet; Refills: 0, [facility] Product Selection Permitted - Pepcid 20 mg Oral Tablet - take 1 tablet ORAL route every 12 hours for 10 days; 20 tablet; Refills: 0, [facility] Product Selection Permitted - Diclofenac Sodium 75 mg Oral tablet, delayed release (enteric coated) - take 1 tablet ORAL route 2 times per day; 20 tablet; Refills: 0, Product [facility] Selection Permitted - Prednisone 20 mg Oral Tablet - take 2 tablets ORAL route once daily for 5 days; 10 tablet; Refills: 0, Product [facility] Selection Permitted Signatures: Dispatcher [employer] See Currie MD MD cha Williams, Irene, RN RN iw Sims, Lauren, RN RN ld1
--- NOTE | 2023-10-07 11:31 | ER ---
Nurse's Notes [facility] Name: Felicia Cheung Age: 37 yrs Sex: Female : 1985 Arrival Date: 10/07/2023 Time: 10:04 Bed 4 Private MD: Diagnosis: Fall on same level, unspecified;Pain in right hand;Rash and other nonspecific skin eruption;Allergic contact dermatitis due to plants, except food Presentation: 10/06 10:25 Chief complaint: Patient states: was seen here last week for rash from poison ayush, has iw completed her steroids, still has a rash on legs, also injured her right hand, fell into a door frame X 2 days ago. Coronavirus screen: At this time, the client does not indicate any symptoms associated with coronavirus-19. Ebola Screen: Patient negative for fever greater than or equal to 101.5 degrees Fahrenheit, and additional compatible Ebola Virus Disease symptoms Patient denies exposure to infectious person. Patient denies travel to an Ebola-affected area in the 21 days before illness onset. No symptoms or risks identified at this time. Initial Sepsis Screen: Does the patient meet any 2 criteria? No. Patient's initial sepsis screen is negative. Does the patient have a suspected source of infection? No. Patient's initial sepsis screen is negative. Risk Assessment: Do you want to hurt yourself or someone else? Patient reports no desire to harm self or others. Onset of symptoms was October 05, 2023. 10:25 Method Of Arrival: Ambulatory iw 10:25 Acuity: COMPA 4 iw Triage Assessment: 10:58 General: Appears in no apparent distress. comfortable, Behavior is calm, cooperative, ld1 appropriate for age. Pain: Complains of pain in right hand Pain does not radiate. Pain currently is 8 out of 10 on a pain scale. Quality of pain is described as throbbing, Pain began suddenly, Is continuous. EENT: No signs and/or symptoms were reported regarding the EENT system. Neuro: Level of Consciousness is awake, alert, obeys commands, Oriented to person, place, time, situation, Appropriate for age. Cardiovascular: Capillary refill < 3 seconds Patient's skin is warm and dry. Respiratory: Airway is compromised Respiratory effort is even, unlabored. GI: Abdomen is round non-distended. : No signs and/or symptoms were reported regarding the genitourinary system. Derm: No signs and/or symptoms reported regarding the dermatologic system. Musculoskeletal: Swelling present in right hand. Injury Description: fall on right hand. Historical: - Allergies: 10:26 No Known Allergies; iw - PMHx: 10:26 Endometriosis; angina pectoris; Gastroesophageal reflux disease; Herniated Disc L5; iw Hypertension; - PSHx: 10:26 Appendectomy; Appendectomy; section; lumbar fusion 2022; iw - Immunization history:: Adult Immunizations. - Infectious Disease History:: Denies. - Social history:: Smoking status: Patient denies any tobacco usage or history of. Screenin:00 [facility] ED Fall Risk Assessment (Adult) History of falling in the last 3 months, ld1 including since admission Yes- single mechanical fall (1 pt). Abuse screen: Denies threats or abuse. Denies injuries from another. Nutritional screening: No deficits noted. Tuberculosis screening: No symptoms or risk factors identified. Assessment: 11:00 Reassessment: See triage assessment. ld1 Vital Signs: 10:25 BP 175 / 94; Pulse 67; Resp 18; Temp 97.6; Pulse Ox 100% ; Weight 89.81 kg; Pain 7/10; iw 10:58 BP 160 / 89; Pulse 69; Resp 18; Pulse Ox 100% on R/A; Pain 8/10; ld1 10:25 Pain Scale: Adult iw 10:58 Pain Scale: Adult ld1 ED Course: 10:05 Patient arrived in ED. mr 10:06 See Rosario MD is Attending Physician. haydee 10:26 Triage completed. iw 10:27 Arm band placed on. iw 10:58 Kourtney Delcid, AMI is Primary Nurse. ld1 11:00 Patient has correct armband on for positive identification. Placed in gown. Bed in low ld1 position. Call light in reach. Side rails up X2. media monitor on. Pulse ox on. NIBP on. Door closed. Noise minimized. Warm blanket given. 11:00 No provider procedures requiring assistance completed. ld1 11:18 XRAY Hand RIGHT 3 View In Process Unspecified. EDMS 11:30 Faustino Esparza MD is Referral Physician. haydee 11:49 Patient did not have IV access during this emergency room visit. ld1 Administered Medications: 11:33 Not Given (Patient Refused): [id number] mg PO once ld1 11:33 Drug: diphenhydrAMINE PO 25 mg PO once Route: PO; ld1 11:33 Drug: Famotidine PO 40 mg PO once Route: PO; ld1 11:33 Drug: predniSONE PO 60 mg PO once Route: PO; ld1 Medication: 11:00 VIS not applicable for this client. ld1 Outcome: 11:31 Discharge ordered by . haydee 11:49 Discharged to home ambulatory, ld1 :49 Condition: stable 11:49 Discharge instructions given to patient, Instructed on discharge instructions, follow up and referral plans. medication usage, Demonstrated understanding of instructions, follow-up care, medications, Prescriptions given X 4, 11:49 Patient left the ED. ld1 11:53 Patient left the ED. as6 Signatures: Dispatcher [employer] EDSee Martins MD MD cha Rivera, Mary, Reg Reg mr Lynnette Fletcher RN RN iw Kourtney Delcid RN RN ld1 Adrian Brewster RN RN as6
--- NOTE | 2023-10-07 11:31 | RAD REPORT ---
EXAM DESCRIPTION: RAD - Hand Right 3 View - 10/07/2023 11:16 am CLINICAL HISTORY: Right hand pain FINDINGS: No fracture or dislocation is seen.
[2023-10-07 12:32] VITALS: BP 160/89; TEMP 97.6; O2SAT 100
== END 2023-10-07 11:53 | disposition home or self-care (01) ==
LOC: ER 10:04
DX: M79.641 Pain in right hand (principal); W18.30XA Fall on same level, unspecified, initial encounter; R21 Rash and other nonspecific skin eruption; L23.7 Allergic contact dermatitis due to plants, except food
CPT/HCPCS: 73130; 99284; J7512

== ENCOUNTER 2024-04-11 22:18 | Emergency (ER) | payer OTHER, SELFPAY ==
[2024-04-11] MEDS ORDERED: HYDROCODONE/CHLORPHEN 5 ML/OSYR ONE (22:51)
[2024-04-11] MEDS ORDERED: ALBUTEROL 2.5 MG/3 ML NEB SOL ONE (22:51)
[2024-04-11] MEDS ORDERED: IPRATROPIUM BROM 0.5MG/2.5ML ONE (22:51)
[2024-04-11] MEDS ORDERED: KETOROLAC 30 MG/ML INJ ONE (23:22)
[2024-04-11 23:23] LABS: Specific Gravity 1.028 (1.005-1.030); Urine Bilirubin NEGATIVE (Negative); Urine Blood Negative (Negative); Urine Clarity Clear (Clear); Urine Color Light-Yellow (Yellow); Urine Glucose NEGATIVE (Negative); Urine Ketones NEGATIVE (Negative); Urine Microscopic Reflex YN NO UMIC; Urine Nitrite NEGATIVE (Negative); Urine Protein NEGATIVE (Negative); Urine Urobilinogen Normal (Normal)
[2024-04-11 23:28] LABS: Specific Gravity 1.028 (1.005-1.030)
[2024-04-11 23:30] LABS: SARS-CoV-2 Antigen CONTROL BLUE LINE VIS/BG OK; SARS-CoV-2 Antigen Rapid Res Negative (Negative)
--- NOTE | 2024-04-12 00:43 | ER ---
Nurse's Notes [facility] Name: Felicia Cheung Age: 38 yrs Sex: Female : 1985 Arrival Date: 04/11/2024 Time: 22:18 Bed 14 Private MD: Diagnosis: Cough;Nausea with vomiting, unspecified Presentation: 04/11 22:21 Chief complaint: Patient states: HORRIBLE COUGH FOR OVER THREE WEEKS, CHEST PAIN WHEN ha1 COUGHING AND NOT COUGHING. NASAL CONGESTION. 22:21 Coronavirus screen: Vaccine status: Patient reports being unvaccinated. Ebola Screen: ha1 No symptoms or risks identified at this time. Initial Sepsis Screen: Does the patient meet any 2 criteria? No. Patient's initial sepsis screen is negative. Does the patient have a suspected source of infection? No. Patient's initial sepsis screen is negative. Risk Assessment: Do you want to hurt yourself or someone else? Patient reports no desire to harm self or others. Onset of symptoms was April 11, 2024. 22:21 Method Of Arrival: Ambulatory ha1 22:21 Acuity: COMPA 3 ha1 Triage Assessment: 22:21 General: Appears uncomfortable, ill, Behavior is cooperative. Pain: Complains of pain ha1 in chest Pain does not radiate. Pain currently is 7 out of 10 on a pain scale. Quality of pain is described as aching, pressure. Neuro: Level of Consciousness is awake, alert, obeys commands, Oriented to person, place, time, situation. Cardiovascular: Reports chest pain, Heart tones S1 S2 present Patient's skin is warm and dry. Respiratory: Reports cough that is non-productive, persistent NASAL CONGESTION Airway is patent Respiratory effort is even, unlabored, Respiratory pattern is regular, symmetrical. GI: No signs and/or symptoms were reported involving the gastrointestinal system. Abdomen is round non-distended. : No signs and/or symptoms were reported regarding the genitourinary system. RN ORTHO: 22:34 LMP 04/08/2024, unknown rg5 Historical: - Allergies: 22:34 No Known Allergies; ha1 - PMHx: 22:34 angina pectoris; Endometriosis; Gastroesophageal reflux disease; Herniated Disc L5; ha1 Hypertension; - PSHx: 22:34 Appendectomy; Appendectomy; section; lumbar fusion 2022; ha1 - Immunization history:: Adult Immunizations up to date. - Infectious Disease History:: Denies. - Social history:: Smoking status: Patient/guardian denies using tobacco, Stopped _ months ago 6. Screenin:[address] [facility] ED Fall Risk Assessment (Adult) History of falling in the last 3 months, rg5 including since admission No falls in past 3 months (0 pts) Confusion or Disorientation No (0 pts) Intoxicated or Sedated No (0 pts) Impaired Gait No (0 pts) Mobility Assist Device Used No (0 pt) Altered Elimination No (0 pt) Score/Fall Risk Level 0 - 2 = Low Risk Oriented to surroundings, Maintained a safe environment, Hourly rounding (assess needs \T\ fall precautionary measures) done. Abuse screen: Denies threats or abuse. Nutritional screening: No deficits noted. Tuberculosis screening: No symptoms or risk factors identified. Assessment: 22:36 General: Appears in no apparent distress. comfortable, Behavior is calm, cooperative, rg5 appropriate for age. Pain: Complains of pain in chest Quality of pain is described as aching. Neuro: Level of Consciousness is awake, alert, obeys commands, Oriented to person, place, time. Cardiovascular: Capillary refill < 3 seconds Patient's skin is warm and dry. Rhythm is sinus rhythm. Respiratory: Airway is patent Trachea midline Respiratory effort is even, unlabored, Respiratory pattern is regular, symmetrical, Breath sounds are clear bilaterally. GI: Abdomen is round non-distended, Bowel sounds present X 4 quads. Abd is soft and non tender. : No signs and/or symptoms were reported regarding the genitourinary system. EENT: No deficits noted. Derm: Skin is intact, Skin is dry, Skin is normal. Musculoskeletal: Circulation, motion, and sensation intact. Range of motion:. 23:35 Reassessment: Patient and/or family updated on plan of care and expected duration. Pain rg5 level reassessed. Patient is alert, oriented x 3, equal unlabored respirations, skin warm/dry/pink. Patient states symptoms have improved. Vital Signs: 22:21 BP 137 / 84; Pulse 97; Resp 17 S; Temp 98.6(O); Pulse Ox 99% on R/A; Weight 88.45 kg; ha1 Height 5 ft. 8 in. ; Pain 7/10; 22:35 BP 137 / 84; Pulse 96; Resp 19; Pulse Ox 99% on R/A; rg5 23:34 BP 137 / 82; Pulse 96; Resp 19; Pulse Ox 99% on R/A; rg5 04/12 00:48 BP 147 / 79; Pulse 95; Resp 18; Pulse Ox 99% on R/A; rg5 04/11 22:21 Body Mass Index 29.65 (88.45 kg, 172.72 cm) ha1 04/11 22:21 Pain Scale: Adult ha1 Giselle Coma Score: 04/11 22:35 Eye Response: spontaneous(4). Motor Response: obeys commands(6). Verbal Response: rg5 oriented(5). Total: 15. 23:00 Eye Response: spontaneous(4). Motor Response: obeys commands(6). Verbal Response: cp oriented(5). Total: 15. ED Course: 22:21 Patient arrived in ED. jj6 22:22 See Oden PA is PHCP. cp 22:22 Meek Nuñez MD is Attending Physician. cp 22:27 Farhan Sandoval, AMI is Primary Nurse. rg5 22:34 Triage completed. ha1 22:36 EKG done, by emanations analysis technician. reviewed by Meek Nuñez MD. oh1 22:36 No provider procedures requiring assistance completed. rg5 22:36 Patient has correct armband on for positive identification. Bed in low position. Call rg5 light in reach. Side rails up X 1. 23:04 XRAY Chest Pa And Lat (2 Views) In Process Unspecified. EDMS 04/12 00:49 Provided Education on: post er care. rg5 00:58 Patient did not have IV access during this emergency room visit. rg5 Administered Medications: 04/11 22:50 Drug: Tussionex Pennkinetic ER PO Suspension 5 ml PO once Route: PO; rg5 23:18 Follow up: Response: No adverse reaction rg5 23:05 Drug: Albuterol Inhalation 2.5 mg Inhalation once Route: Inhalation; rg5 23:05 Drug: Ipratropium Inhalation Aerosol 0.5 mg Inhalation once Route: Inhalation; rg5 23:33 Drug: Ketorolac IM 30 mg IM once; if not Route: IM; Site: right deltoid; rg5 04/12 00:52 Follow up: Response: No adverse reaction; Pain is decreased rg5 Medication: 04/11 22:36 VIS not applicable for this client. rg5 Outcome: 04/12 00:43 Discharge ordered by . cp 00:58 Discharged to home ambulatory, rg5 00:58 Condition: stable 00:58 Discharge instructions given to patient, Instructed on discharge instructions, follow up and referral plans. Demonstrated understanding of instructions, follow-up care, medications, Prescriptions given X 4, 00:59 Patient left the ED. rg5 Signatures: Dispatcher [employer] EDMS See Oden PA PA cp Jeffries, Jennifer jj6 Barb Landon RN RN ha1 Farhan Sandoval RN RN rg5 Janae Abrams oh1
--- NOTE | 2024-04-12 00:43 | EDPHYS ---
Physician Documentation [facility] Name: Felicia Cheung Age: 38 yrs Sex: Female : 1985 Arrival Date: 04/11/2024 Time: 22:18 Bed 14 Private MD: ED Physician Meek Nuñez HPI: 04/11 22:45 This 38 yrs old Female presents to ER via Ambulatory with complaints of Cough, cp Congestion. 22:45 The patient or guardian reports cough, that is constant, congestion. cp 22:45 Onset: The symptoms/episode began/occurred 3 week(s) ago. cp 22:45 Severity of symptoms: in the emergency department the symptoms are actually worse. cp Associated signs and symptoms: Pertinent positives: chest pain, with cough, nausea, sore throat, vomiting, Pertinent negatives: diarrhea. 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 - Infectious Disease History:: Denies. - Social history:: Smoking status: Patient/guardian denies using tobacco, Stopped _ months ago 6. ROS: 22:50 Constitutional: Negative for fever, poor PO intake, cp 22:50 Eyes: Negative for injury, pain, redness, and discharge, cp 22:50 ENT: Positive for sore throat, Negative for drainage from ear(s), ear pain, difficulty swallowing, difficulty handling secretions, 22:50 Cardiovascular: Positive for chest pain, with cough, 22:50 Respiratory: Positive for cough, "sounds productive", Negative for wheezing, 22:50 Abdomen/GI: Positive for nausea, Negative for diarrhea, constipation, active vomiting, 22:50 Neuro: Positive for headache, Negative for altered mental status, weakness, 22:50 All other systems are negative, Exam: 22:55 Constitutional: The patient appears in no acute distress, alert, awake, cp non-diaphoretic, non-toxic, well developed, well nourished, uncomfortable, 22:55 Head/Face: Normocephalic, atraumatic. cp 22:55 Eyes: Periorbital structures: appear normal, Conjunctiva: normal, no exudate, no injection, Sclera: no appreciated abnormality, Lids and lashes: appear normal, bilaterally, 22:55 ENT: External ear(s): are unremarkable, Ear canal(s): are normal, clear, TM's: dullness, bilaterally, Nose: is normal, Mouth: Lips: moist, Oral mucosa: pink and intact, moist, Posterior pharynx: Airway: no evidence of obstruction, patent, Tonsils: no enlargement, no exudate, erythema, that is mild, exudate, is not appreciated, 22:55 Neck: ROM/movement: is normal, is supple, without pain, no range of motions limitations, 22:55 Chest/axilla: Inspection: normal, 22:55 Cardiovascular: Rate: normal, Rhythm: regular, 22:55 Respiratory: the patient does not display signs of respiratory distress, Respirations: normal, no use of accessory muscles, no retractions, labored breathing, is not present, Breath sounds: are clear throughout, no decreased breath sounds, no stridor, no wheezing, 22:55 Abdomen/GI: Inspection: abdomen appears normal, Palpation: abdomen is soft and non-tender, in all quadrants, 22:55 Back: CVA tenderness, is absent, 22:55 Neuro: Orientation: to person, place \\T\\ time. Mentation: is normal, Motor: moves all fours, strength is normal, Sensation: is normal, 23:00 ECG was reviewed by the Attending Physician. EKG at 2233 normal sinus rhythm rate cp 77 Vital Signs: 22:21 BP 137 / 84; Pulse 97; Resp 17 S; Temp 98.6(O); Pulse Ox 99% on R/A; Weight 88.45 kg; ha1 Height 5 ft. 8 in. ; Pain 7/10; 22:35 BP 137 / 84; Pulse 96; Resp 19; Pulse Ox 99% on R/A; rg5 23:34 BP 137 / 82; Pulse 96; Resp 19; Pulse Ox 99% on R/A; rg5 11 00:48 BP 147 / 79; Pulse 95; Resp 18; Pulse Ox 99% on R/A; rg5 04/11 22:21 Body Mass Index 29.65 (88.45 kg, 172.72 cm) ha1 04/11 22:21 Pain Scale: Adult ha1 Giselle Coma Score: 04/11 22:35 Eye Response: spontaneous(4). Motor Response: obeys commands(6). Verbal Response: rg5 oriented(5). Total: 15. 23:00 Eye Response: spontaneous(4). Motor Response: obeys commands(6). Verbal Response: cp oriented(5). Total: 15. MDM: 22:22 Medical Screening Exam initiated 04/12 00:00 Differential Diagnosis: Bronchitis Influenza Otitis Media Viral Syndrome Pneumonia. 00:42 Data reviewed: vital signs, nurses notes, lab test result(s), EKG, radiologic studies, cp plain films, and as a result, I will discharge patient. 00:43 Independent interpretation of the following test(s) in the Emergency Department EKG: cp See my EKG interpretation above. 00:43 I considered the following discharge prescriptions or medication management in the emergency department Medications were administered in the Emergency Department. See MAR. Counseling: I had a detailed discussion with the patient and/or guardian regarding the historical points, exam findings, and any diagnostic results supporting the discharge/admit diagnosis, lab results, radiology results, to return to the emergency department if symptoms worsen or persist or if there are any questions or concerns that arise at home. Response to treatment: the patient's symptoms have mildly improved after treatment, and as a result, I will discharge patient. 04/11 22:44 Order name: Urinalysis w/ reflexes; Complete Time: 00:26 04/12 00:26 Interpretation: Reviewed. 04/11 22:44 Order name: Test, Urine; Complete Time: 00:26 04/11 22:44 Order name: SARS RAPID; Complete Time: 00:26 04/11 22:44 Order name: Influenza Screen (a \\T\\ B); Complete Time: 00:26 04/12 00:27 Interpretation: Reviewed. 04/11 22:47 Order name: Group A Streptococcus Rapid Sc [facility] 04/12 00:27 Interpretation: Reviewed. 04/11 23:32 Order name: Throat Culture [facility] 04/11 22:44 Order name: XRAY Chest Pa And Lat (2 Views) 04/11 22:37 Order name: EKG - Nurse/Tech; Complete Time: 22:37 ha1 EC/03 23:00 Rate is 77 beats/min. Rhythm is regular, Normal Sinus Rhythm. QRS [place] is Normal. HI cp interval is normal. QRS interval is normal. QT interval is normal. No Q waves. T waves are Normal. No ST changes noted. Clinical impression: No evidence of ischemia. Interpreted by me. Reviewed by me. Administered Medications: 22:50 Drug: Tussionex Pennkinetic ER PO Suspension 5 ml PO once Route: PO; rg5 23:18 Follow up: Response: No adverse reaction rg5 23:05 Drug: Albuterol Inhalation 2.5 mg Inhalation once Route: Inhalation; rg5 23:05 Drug: Ipratropium Inhalation Aerosol 0.5 mg Inhalation once Route: Inhalation; rg5 23:33 Drug: Ketorolac IM 30 mg IM once; if not Route: IM; Site: right deltoid; rg5 04/12 00:52 Follow up: Response: No adverse reaction; Pain is decreased rg5 Disposition: 06:44 Co-signature as Attending Physician, Meek Nuñez MD I agree with the assessment sp4 and plan of care. I reviewed the patient's care provided by Advanced Practice Provider \\T\\ agree w/ the diagnosis \\T\\ care plan. I personally saw the pt \\T\\ performed a substantive portion of the visit, incldng all aspects of the (History/Exam/Medical Decision Making). Disposition Summary: 04/12/24 00:43 Discharge Ordered Notes: Location: Home cp Problem: new cp Symptoms: have improved cp Condition: Stable cp Diagnosis - Cough cp - Nausea with vomiting, unspecified cp Followup: cp - With: Private Physician - When: 2 - 3 days - Reason: Worsening of condition Discharge Instructions: - Discharge Summary Sheet cp - Nausea and Vomiting, Adult cp - Cool Mist Vaporizer cp - Cough, Adult cp Forms: - Medication Reconciliation Form cp - Antibiotic Education cp - Prescription Opioid Use cp - Patient Portal Instructions cp - Leadership Thank You Letter cp Prescriptions: - Bromfed DM 2-30-10 mg/5 mL Oral syrup - administer 10 milliliter ORAL route 3-4 times daily as needed for cold cp symptoms; 240 milliliter; Refills: 0, Product Selection Permitted - albuterol sulfate 90 mcg/actuation Inhalation HFA Aerosol Inhaler - inhale 1 inhalation INHALATION route every 4 to 6 hours As needed as needed for cp bronchospasm; administer via ventilator; 1 unit; Refills: 0, Product Selection Permitted - Anaprox DS 550 mg Oral Tablet - take 1 tablet ORAL route every 12 hours As needed; 20 tablet; Refills: 0, cp Product Selection Permitted - Zofran 4 mg Oral Tablet - take 1 tablet ORAL route every 12 hours As needed; 20 tablet; Refills: 0, cp Product Selection Permitted - Zithromax Z-Jonathan 250 mg Oral Tablet - take 1 tablet ORAL route as directed for 5 days Day 1 - take two (2) tablets cp one time. Day 2, 3, 4 , 5 take one (1) tablet once daily.; 6 tablet; Refills: 0, Product Selection Permitted Addendum: 04/14/2024 00:59 Co-signature as Attending Physician, Meek Nuñez MD I agree with the assessment s p4 and plan of care. I reviewed the patient's care provided by the Advanced Practice Provider and agree with the diagnosis and treatment plan. Signatures: Dispatcher [employer] [facility]KY See Oden PA PA cp Barb Landon, AMI RN ha1 Meek Nuñez MD MD sp4 Farhan Sandoval RN RN rg5 Corrections: (The following items were deleted from the chart) 04/11 22:45 22:45 Urinalysis+U.LAB.BRZ ordered. [facility]KY 22:45 22:45 Test, Urine+UC.LAB.BRZ ordered. [facility]KY 22:45 22:45 SARS-COV-2 Antigen Rapid+I.LAB.BRZ ordered. [facility] EDKY 22:45 22:45 Group A Streptococcus Rapid Sc+BA.LAB.BRZ ordered. [facility] 04/13 00:42 11 06:44 This 38 yrs old Other Race Female presents to ER via Ambulatory with cp complaints of Cough, Congestion. sp4 04/13 00:51 04/12 06:43 Constitutional: This is a well developed, well nourished patient who is cp awake, alert, and in no acute distress. Head/Face: Normocephalic, atraumatic. Eyes: Pupils equal round and reactive to light, extra-ocular motions intact. Lids and lashes normal. Conjunctiva and sclera are not injected. Cornea within normal limits. Periorbital areas with no swelling, redness, or edema. ENT: Nares patent. No nasal discharge, no septal abnormalities noted. Tympanic membranes are normal and external auditory canals are clear. Oropharynx with no redness, swelling, or masses, exudates, or evidence of obstruction, uvula midline. Mucous membranes moist. Neck: Trachea midline, no thyromegaly or masses palpated, and no cervical lymphadenopathy. Supple, full range of motion without nuchal rigidity, or vertebral point tenderness. Chest/axilla: Normal chest wall appearance and motion. Nontender with no deformity. No lesions are appreciated. Cardiovascular: Regular rate and rhythm with a normal S1 and S2. No gallops, murmurs, or rubs. Normal PMI, no JVD. No pulse deficits. Respiratory: Lungs have equal breath sounds bilaterally, clear to auscultation and percussion. No rales, rhonchi or wheezes noted. No increased work of breathing, no retractions or nasal flaring. Abdomen/GI: Soft, with normal bowel sounds. No distension or tympany. No guarding or rebound. No evidence of tenderness throughout. Back: No spinal tenderness. No costovertebral tenderness. Skin: Warm, dry with normal turgor. Normal color with no rashes, no lesions, and no evidence of cellulitis. MS/ Extremity: Pulses equal, no cyanosis. Neurovascular intact. Full, normal range of motion. Neuro: Awake and alert, GCS 15, oriented to person, place, time, and situation. Cranial nerves II-XII grossly intact. Motor strength 5/5 in all extremities. Sensory grossly intact. Psych: Awake, alert, with orientation to person, place and time. Behavior, mood, and affect are within normal limits sp4 04/13 00:51 04/12 06:43 ECG was reviewed by the Attending Physician. EKG at 2233 normal sinus cp rhythm rate 77 sp4 04/13 00:51 04/12 06:43 GCS: 15, sp4 cp 04/13 00:04/12 06:43 Rate is 77 beats/min. Rhythm is regular, Normal Sinus Rhythm. QRS [place] is cp Normal. HI interval is normal. QRS interval is normal. QT interval is normal. No Q waves. T waves are Normal. No ST changes noted. Clinical impression: No evidence of ischemia. Interpreted by me. Reviewed by me. sp4
[2024-04-12 01:45] VITALS: TEMP 98.6; O2SAT 99
[2024-04-12 01:49] VITALS: BP 147/79
--- NOTE | 2024-04-12 03:01 | RAD REPORT ---
EXAM: XR Chest, 2 Views CLINICAL HISTORY: The patient is 38 years old and is Female; COUGH TECHNIQUE: Frontal and lateral views of the chest. COMPARISON: No relevant prior studies available. FINDINGS: LUNGS: Unremarkable. No consolidation. PLEURAL SPACE: Unremarkable. No pneumothorax. HEART: Unremarkable. No cardiomegaly. MEDIASTINUM: Unremarkable. Normal mediastinal contour. BONES/JOINTS: Unremarkable. No acute fracture. UPPER ABDOMEN: Unremarkable as visualized. IMPRESSION: No acute cardiopulmonary process. Electronically signed by: Lindsay Pruett MD 04/11/2024 11:08 PM [facility] Due to temporary technical issues with the PACS/Zipscene reporting system, reports are being sally d by the in-house radiologist without review as a courtesy to ensure prompt reporting the interpreting radiologist is fully responsible for the content of the report. Transcribed Date/Time: 04/12/2024 3:01 AM
--- NOTE | 2024-04-13 12:22 | EKG ---
Test Date: 2024-04-11 Test Time: 22:33:24 Public Services Librarian: ELIZABETH MEASUREMENT RESULTS: Intervals: Rate: 77 ND: 176 QRSD: 92 QT: 374 QTc: 423 [place]: P: 57 ND: 176 QRS: 75 T: 34 INTERPRETIVE STATEMENTS: Normal sinus rhythm Nonspecific ST abnormality Abnormal ECG Compared to ECG 07/07/2023 09:17:21 ST (T wave) deviation now present Electronically Signed On 04-13-24 12:17:44 [employer] by Stiven Quick
== END 2024-04-12 00:59 | disposition home or self-care (01) ==
LOC: ER 22:18
DX: R05.9 Cough, unspecified (principal); R11.2 Nausea with vomiting, unspecified; Z11.52 Encounter for screening for COVID-19
CPT/HCPCS: 36415; 71046; 81003; 81025; 87070; 87081; 87804; 87811; 93005; 96372; 99285; J7613; J7644

== ENCOUNTER 2024-06-17 18:36 | Emergency (ER) | payer SELFPAY ==
[2024-06-17] MEDS ORDERED: MAGNES/ALUMIN/SIMET 30ML UCUP ONE (19:31)
[2024-06-17] MEDS ORDERED: ONDANSETRON 4 MG/2 ML VIAL ONE (19:31)
[2024-06-17] MEDS ORDERED: FAMOTIDINE 20 MG/2 ML VIAL IV ONE (19:32)
[2024-06-17] MEDS ORDERED: LIDOCAINE VISCOUS 2% 10ML ORAL SOLN ONE (19:32)
[2024-06-17 19:42] LABS: Absolute Basophils 0.1 K/uL (0-0.5); Absolute Eosinophils 0.1 K/uL (0-0.5); Absolute Lymphocytes (CBC) 1.9 K/uL (0.7-4.9); Absolute Monocytes 0.6 K/uL (0.1-1.3); Absolute Neutrophil 5.5 K/uL (1.8-8.0); Basophils % 1.2 % (0-1.3); Eosinophils % 1.5 % (0-4.4); Hematocrit 41.4 % (36.0-45.0); Hemoglobin 14.1 g/dL (12.0-15.0); Lymphocytes % 23.1 % (15.3-44.8); MCH 30.6 pg (27.0-35.0); MCHC 34.1 g/dL (32.0-36.0); MCV 89.8 fL (80-100); Monocytes % 7.8 % (3.3-12.3); Neutrophils % 66.4 % (41.7-73.7); Platelets 322 thou/uL (152-406); RBC Red Blood Cell Count 4.61 M/uL (3.86-4.86); Red Cell Distribution Width 12.9 % (12.1-15.2)
[2024-06-17] MEDS ORDERED: MORPHINE 4 MG/ML SYR ONE (19:53)
[2024-06-17 19:56] LABS: Albumin 4.2 g/dL (3.4-5.0); Albumin/Globulin Ratio 1.2 (1.1-1.8); Anion Gap 11.6 mEq/L (5.0-15.0); Bilirubin Direct 0.2 mg/dL (0-0.2); Bilirubin Indirect, Calculated 0.5 mg/dL (0.2-0.8); Bilirubin Total 0.7 mg/dL (0.2-1.0); Globulin 3.6 g/dL (2.3-3.5); Magnesium 1.8 mg/dL (1.6-2.4); Potassium 3.6 mEq/L (3.5-5.1); Protein, Total 7.8 g/dL (6.4-8.2); Troponin High Sensitivity 5.1 pg/mL (<58.9)
--- NOTE | 2024-06-17 20:06 | RAD REPORT ---
EXAMINATION: ONE VIEW CHEST XR CLINICAL INDICATION: right upper abdomen pain;Chest pain TECHNIQUE: Frontal chest projection is submitted. Examination is limited by patient positioning and t echnique. COMPARISON: 04/25/2024 FINDINGS: The lungs are well inflated and clear. The heart is normal in size. No displaced fractures identified . IMPRESSION: No acute intrathoracic abnormalities.
[2024-06-17] MEDS ORDERED: FENTANYL CITR 100 MCG/2 ML ONE (20:52)
[2024-06-17] MEDS ORDERED: NA CHLORIDE 0.9% 1,000 ML ONE (21:02)
--- NOTE | 2024-06-17 22:05 | RAD REPORT ---
EXAMINATION: CTA CHEST PE CLINICAL INDICATION: right side chest pain TECHNIQUE: This examination was performed according to an angiographic protocol with 3D post-processi ng. This involves 3D reconstructions, MIPs, volume rendered images and/or shaded surface rendering. One or more of the following dose reduction techniques were used: Automated exposure control, adjustm ent of the mA and/or kV according to patient size, and/or iterative reconstruction. Unless otherwise specified, incidental findings do not require dedicated imaging follow-up. COMPARISON: No prior exam. FINDINGS: PULMONARY ARTERIES: Suboptimal bolus timing limits assessment. No gross pulmonary thromboembolism see n. THORACIC AORTA: Normal caliber and configuration. LUNGS: 6 mm nodule superior segment right lower lobe abutting the pleural surface. No focal infiltrat e detected. PLEURA: No pleural effusion. No pneumothorax. MEDIASTINUM AND LYMPH NODES: No mediastinal mass or fluid collection. Normal size mediastinal, hilar, and axillary lymph nodes. OSSEOUS STRUCTURES AND CHEST WALL: Intact. UPPER ABDOMEN: No significant abnormalities. IMPRESSION: No evidence of pulmonary emboli to the subsegmental level. 6 mm nodule abutting the pleural surface right lower lobe. Non-contrast chest CT at 6-12 months, then consider non-contrast chest CT at 18-24 months. Note: These guidelines do not apply to patients younger than 35 years, immunocompromised patients, an d patients with cancer. F/u in patients with significant comorbidities as clinically warranted. For lung cancer screening, adhere to Lung-RADS guidelines. Reference: Radiology. 2017 Dec; 284(1):228-243
--- NOTE | 2024-06-17 22:07 | RAD REPORT ---
EXAMINATION: CT ABDOMEN AND PELVIS WITH CONTRAST CLINICAL INDICATION: ABD PAIN TECHNIQUE: CT abdomen and pelvis was performed, after the administration of IV contrast, as per [facility] protocol. Axial, sagittal and coronal reconstructions were obtained. One or more of the following dose reduction techniques were used: Automated exposure control, adjustment of the mA and k V according to patient size, and iterative reconstruction. Unless otherwise specified, incidental findings do not require dedicated imaging follow-up. COMPARISON: No prior exam. FINDINGS: LOWER CHEST: The visualized lung bases are clear. LIVER: Mild fatty liver is present. No focal lesion or biliary dilatation is seen. Grossly unremark able gallbladder. SPLEEN: Normal size. No focal lesion. PANCREAS: No mass, ductal dilation, or grady-pancreatic fluid. ADRENALS: Normal; no mass. KIDNEYS: Normal size and contour. No hydronephrosis. GASTROINTESTINAL TRACT: No evidence of free air, significant intra-abdominal free fluid, bowel obstru ction or abscess. Moderate stool is retained throughout the colon. APPENDIX: Appendix surgically absent. LYMPH NODES: No lymphadenopathy. MUSCULOSKELETAL: Posterior fusion L5-S1 with chronic bilateral pars defects. Disc arthroplasty also n oted at this level. ADDITIONAL FINDINGS: None. IMPRESSION: No acute or concerning abnormalities seen in the abdomen or pelvis.
[2024-06-17] MEDS ORDERED: PROMETHAZINE INJ 25 MG/ML AMP ONE (22:27)
[2024-06-17] MEDS ORDERED: KETOROLAC 30 MG/ML INJ ONE (22:27)
--- NOTE | 2024-06-17 22:45 | EDPHYS ---
Physician Documentation [facility] Name: Felicia Cheung Age: 38 yrs Sex: Female : 1985 Arrival Date: 06/17/2024 Time: 18:36 Bed 11 Private MD: ED Physician Meek Nuñez HPI: 06/17 19:00 This 38 yrs old Female presents to ER via Ambulatory with complaints of Pain under cp breast,bowel prob don't feel well. 19:00 Patient is a 38 y/o female who presents to ED with c/o "not feeling well". Patient cp reports pain to right upper abdomen and right area below breast, nausea. Patient reports similar episodes in the past that were thought to be caused by gallbladder. Has been seen by local GI DR Zheng and Dr Conner. Endoscopy was performed and she was told she has ulcers and possible Crohn's Disease. 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 - Infectious Disease History:: Denies. - Social history:: Smoking status: Patient/guardian denies using tobacco, Stopped _ months ago .25. ROS: 19:05 Constitutional: Negative for body aches, chills, fever, poor PO intake, cp 19:05 Eyes: Negative for injury, pain, redness, and discharge, cp 19:05 ENT: Negative for drainage from ear(s), ear pain, sore throat, difficulty swallowing, difficulty handling secretions, 19:05 Cardiovascular: Positive for chest pain, of the below right breast, 19:05 Respiratory: Negative for cough, shortness of breath, wheezing, 19:05 Abdomen/GI: Positive for abdominal pain, nausea, Negative for diarrhea, constipation, hematemesis, black/tarry stool, rectal bleeding, active vomiting, 19:05 Back: Positive for radiated pain, 19:05 : Negative for urinary symptoms, 19:05 Neuro: Negative for altered mental status, dizziness, headache, weakness, 19:05 All other systems are negative, Exam: 19:10 Constitutional: The patient appears in no acute distress, alert, awake, cp non-diaphoretic, non-toxic, well developed, well nourished, anxious, uncomfortable, tearful 19:10 Head/Face: Normocephalic, atraumatic. cp 19:10 Eyes: Periorbital structures: appear normal, Conjunctiva: normal, no exudate, no injection, Sclera: no appreciated abnormality, Lids and lashes: appear normal, bilaterally, 19:10 ENT: External ear(s): are unremarkable, Nose: is normal, Mouth: Lips: moist, Oral mucosa: moist, Posterior pharynx: Airway: no evidence of obstruction, patent, 19:10 Neck: ROM/movement: is normal, is supple, without pain, no range of motions limitations, 19:10 Chest/axilla: Inspection: normal, 19:10 Cardiovascular: Rate: tachycardic, Rhythm: regular, Edema: is not appreciated, JVD: is not appreciated, 19:10 Respiratory: the patient does not display signs of respiratory distress, Respirations: normal, no use of accessory muscles, no retractions, labored breathing, is not present, Breath sounds: are clear throughout, no decreased breath sounds, no stridor, no wheezing, 19:10 Abdomen/GI: Inspection: abdomen appears normal, Bowel sounds: active, all quadrants, Palpation: soft, in all quadrants, severe abdominal tenderness, in the epigastric area and right upper quadrant, rebound tenderness, is not appreciated, voluntary guarding, is elicited in the epigastric area and right upper quadrant, 19:10 Back: CVA tenderness, is absent, 19:10 Neuro: Orientation: to person, place \\T\\ time. Mentation: is normal, Motor: moves all fours, strength is normal, 19:27 ECG was reviewed by the Attending Physician. cp Vital Signs: 18:47 Weight 81.65 kg; Height 5 ft. 9 in. ; Pain 8/10; vc1 19:04 BP 147 / 109; Pulse 113; Resp 18; Temp 98.2; Pulse Ox 100% ; vc1 20:02 BP 155 / 112; Pulse 103; Resp 16; Pulse Ox 97% on R/A; jb4 22:54 BP 150 / 80; Pulse 72; Resp 16; Pulse Ox 100% on R/A; jb4 18:47 Body Mass Index 26.58 (81.65 kg, 175.26 cm) vc1 18:47 Pain Scale: Adult vc1 MDM: 18:53 Medical Screening Exam initiated cp 20:00 Differential diagnosis: abnormal EKG, acute myocardial infarction, cholecystitis, cp Cholelithiasis pancreatitis, pericarditis, pleurisy, pneumonia, pneumothorax, pulmonary embolus, Pyelonephritis, Ureterolithiasis, urinary tract infection, drug seeking behavior. 22:45 ED course: VSS. Pain improved after multiple rounds pain meds. Discussed results of cp labs and radiology studies that were negative for acute findings, incidental finding of pulmonary nodule that can be f/u outpatient with pcp. Will discharge to home and recommend GI f/u. 22:45 Data reviewed: vital signs, nurses notes, lab test result(s), EKG, radiologic studies, cp CT scan, plain films. I considered the following discharge prescriptions or medication management in the emergency department Medications were administered in the Emergency Department. See MAR. Independent interpretation of the following test(s) in the Emergency Department EKG: See my EKG interpretation above. 06/17 18:57 Order name: Basic Metabolic Panel; Complete Time: 19:57 cp 06/17 19:57 Interpretation: Normal except: NA 134; GFR 87. cp 06/17 18:57 Order name: CBC with Diff; Complete Time: 19:57 cp 06/17 18:57 Order name: LFT's; Complete Time: 19:57 cp 06/17 19:58 Interpretation: Normal except: GLOB 3.6. cp 06/17 18:57 Order name: Magnesium; Complete Time: 19:57 cp 06/17 18:57 Order name: Troponin HS; Complete Time: 19:57 cp 06/17 19:57 Order name: Lipase; Complete Time: 22:38 cp 06/17 18:57 Order name: XRAY Chest (1 view); Complete Time: 20:25 cp 06/17 20:26 Interpretation: Report review. 06/17 20:53 Order name: CT Chest For PE Angio; Complete Time: 22:11 cp 06/17 20:53 Order name: CT Abd/Pelvis - IV Contrast Only; Complete Time: 22:11 cp 06/17 18:57 Order name: Cardiac monitoring; Complete Time: 19:22 cp 06/17 18:57 Order name: EKG - Nurse/Tech; Complete Time: 19:22 cp 06/17 18:57 Order name: IV Saline Lock; Complete Time: 19:27 cp 06/17 18:57 Order name: Labs collected and sent; Complete Time: 19:27 cp 06/17 18:57 Order name: O2 Per Protocol; Complete Time: 19:22 cp 06/17 18:57 Order name: O2 Sat Monitoring; Complete Time: 19:22 cp 06/17 22:38 Order name: PO challenge; Complete Time: 22:51 cp EC: Rate is 83 beats/min. Rhythm is regular. IA interval is normal. QRS interval is normal. cp QT interval is normal. T waves are Inverted in lead aVR. Interpreted by me. Reviewed by me. Administered Medications: 19:38 Drug: Ondansetron IVP 4 mg IVP once; over 2 minutes Route: IVP; Site: right antecubital;jb4 20:00 Follow up: Response: No adverse reaction; Marked relief of symptoms jb4 19:38 Drug: Famotidine IVP 20 mg IVP once; dilute with 10 mL 0.9% NaCl; give over 2 minutes jb4 Route: IVP; Site: right antecubital; 22:54 Follow up: Response: No adverse reaction jb4 19:38 Drug: GI Cocktail without - (Maalox PO 30 ml, Lidocaine Mucous Membrane 2 % 15 jb4 ml) PO once Route: PO; 20:00 Follow up: Response: No adverse reaction; No change in condition jb4 20:02 Drug: morphine IVP or IV 4 mg IVP once over 4 mins Route: IVP; Infused Over: 4 mins; jb4 Site: right antecubital; 20:30 Follow up: Response: No adverse reaction; Pain is unchanged, physician notified jb4 21:01 Drug: fentaNYL (PF) IVP 50 mcg IVP once Route: IVP; Site: right antecubital; kl 21:30 Follow up: Response: No adverse reaction; Marked relief of symptoms; Pain is decreased; jb4 RASS: Alert and Calm (0) 21:07 Drug: NS 0.9% IV 1000 ml IV at 1 bolus Per protocol; to be given as a bolus over 60 jb4 minutes Route: IV; Rate: 1 bolus; Site: right antecubital; 23:41 Follow up: Response: No adverse reaction; Marked relief of symptoms; IV Status: jb4 Completed infusion; IV Intake: 1000ml 22:31 Drug: Ketorolac IVP 15 mg IVP once Route: IVP; Site: right antecubital; jb4 22:51 Follow up: Response: No adverse reaction; Marked relief of symptoms jb4 22:31 Drug: Promethazine IVP 25 mg IVP once Route: IVP; Site: right antecubital; jb4 23:41 Follow up: Response: No adverse reaction; Marked relief of symptoms jb4 Disposition: 06/18 05:38 Co-signature as Attending Physician, Meek Nuñez MD I agree with the assessment sp4 and plan of care. I reviewed the patient's care provided by Advanced Practice Provider \\T\\ agree w/ the diagnosis \\T\\ care plan. I personally saw the pt \\T\\ performed a substantive portion of the visit, incldng all aspects of the (History/Exam/Medical Decision Making). Disposition Summary: 06/17/24 22:45 Discharge Ordered Notes: Location: Home cp Problem: an ongoing problem cp Symptoms: have improved cp Condition: Stable cp Diagnosis - Chest pain, unspecified cp - Upper abdominal pain, unspecified cp Followup: cp - With: Steve Cordova MD - When: 5 - 6 days - Reason: Recheck today's complaints Discharge Instructions: - Discharge Summary Sheet cp - Abdominal Pain, Adult cp - Nonspecific Chest Pain, Adult cp Forms: - Medication Reconciliation Form cp - Antibiotic Education cp - Prescription Opioid Use cp - Patient Portal Instructions cp - Leadership Thank You Letter cp Prescriptions: - Carafate 1 gram Oral tablet - take 1 tablet ORAL route every 12 hours take on an empty stomach, beginning on cp waking and last dose at bedtime. dissolve in 6-8 oz warm water prior to ingestion; 60 tablet; Refills: 0, Product Selection Permitted - Protonix 40 mg Oral Tablet - take 1 tablet ORAL route once daily; 30 tablet; Refills: 0, Product Selection cp Permitted - Zofran 4 mg Oral Tablet - take 1 tablet ORAL route every 12 hours As needed; 20 tablet; Refills: 0, cp Product Selection Permitted Signatures: [facility] Angela Daniels RN RN See Hansen PA PA cp Adeel Gill RN RN jb4 Nydia Knox RN RN 1 Meek Nuñez MD MD sp4 Radha Finnegan MD MD gb1 Corrections: (The following items were deleted from the chart) 06/17 18:49 18:48 PSHx: Appendectomy; vc1 vc1 18:58 18:58 BASIC METABOLIC PANEL+C.LAB.BRZ ordered. EDMS EDMS 18:58 18:58 CBC+H.LAB.BRZ ordered. EDMS EDMS 18:58 18:58 HEPATIC FUNCTION+C.LAB.BRZ ordered. EDMS EDMS 18:58 18:58 MAGNESIUM+C.LAB.BRZ ordered. EDIL EDMS 18:58 18:58 Troponin High Sensitivity+C.LAB.BRZ ordered. EDMS EDMS 18:58 18:58 Chest Single View+RAD.RAD.BRZ ordered. EDIL EDMS 20:54 20:54 Chest For PE Angio+CT.RAD.BRZ ordered. EDIL EDMS 20:56 19:53 Abdomen Limited+US.RAD.BRZ ordered. EDIL EDMS 06/18 20:22 06/17 22:25 Data reviewed: vital signs, nurses notes, lab test result(s), EKG, cp radiologic studies, CT scan, plain films, cp 06/18 20:06/17 22:25 I considered the following discharge prescriptions or medication management cp in the emergency department Medications were administered in the Emergency Department. See [facility] 06/18 20:22 06/17 22:25 Independent interpretation of the following test(s) in the Emergency cp Department EKG: See my EKG interpretation above cp 06/18 19:06/17 22:25 ED course: VSS. Pain improved after multiple rounds pain meds. Discussed cp results of labs and radiology studies that were negative for acute findings, incidental finding of pulmonary nodule that can be f/u outpatient with pcp. Will discharge to home and recommend GI f/u. cp
--- NOTE | 2024-06-17 22:45 | ER ---
Nurse's Notes [facility] Name: Felicia Cheung Age: 38 yrs Sex: Female : 1985 Arrival Date: 06/17/2024 Time: 18:36 Bed 11 Private MD: Diagnosis: Chest pain, unspecified;Upper abdominal pain, unspecified Presentation: 06/17 18:47 Chief complaint: Patient states: epigastric pain that radiates under right breast to vc1 back. Coronavirus screen: Client denies travel out of the [place] in the last 14 days. At this time, the client does not indicate any symptoms associated with coronavirus-19. Ebola Screen: Patient negative for fever greater than or equal to 101.5 degrees Fahrenheit, and additional compatible Ebola Virus Disease symptoms Patient denies exposure to infectious person. Patient denies travel to an Ebola-affected area in the 21 days before illness onset. No symptoms or risks identified at this time. Initial Sepsis Screen: Does the patient meet any 2 criteria? No. Patient's initial sepsis screen is negative. Does the patient have a suspected source of infection? No. Patient's initial sepsis screen is negative. Risk Assessment: Do you want to hurt yourself or someone else? Patient reports no desire to harm self or others. Onset of symptoms was July 03, 2023. Care prior to arrival: None. Activity prior to arrival: None. 18:47 Method Of Arrival: Ambulatory vc1 18:47 Acuity: COMPA 3 vc1 Triage Assessment: 18:50 General: Appears uncomfortable, ill, slender, well groomed, well developed, emaciated, vc1 Behavior is calm, cooperative, appropriate for age. Pain: Complains of pain in epigastric area Pain radiates to posterior aspect of right lateral abdomen and right upper quadrant Pain currently is 8 out of 10 on a pain scale. Noted to be crying, grimacing, Also complains of nausea, inability to perform activities of daily living, sleeplessness. EENT: No deficits noted. No signs and/or symptoms were reported regarding the EENT system. Neuro: Level of Consciousness is awake, alert, obeys commands, Oriented to person, place, time, situation, Appropriate for age. Cardiovascular: Capillary refill < 3 seconds Patient's skin is warm and dry. Respiratory: Airway is patent Respiratory effort is even, unlabored, Respiratory pattern is regular, symmetrical. GI: Abdomen is round non-distended, Reports upper abdominal pain, epigastric pain, nausea. : No deficits noted. No signs and/or symptoms were reported regarding the genitourinary system. Derm: Skin is intact, is healthy with good turgor, Skin is dry, Skin is normal, Skin temperature is warm. Musculoskeletal: Circulation, motion, and sensation intact. Range of motion: intact in all extremities. 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 - Infectious Disease History:: Denies. - Social history:: Smoking status: Patient/guardian denies using tobacco, Stopped _ months ago .25. Screenin:49 [facility] ED Fall Risk Assessment (Adult) History of falling in the last 3 months, vc1 including since admission No falls in past 3 months (0 pts) Confusion or Disorientation No (0 pts) Intoxicated or Sedated No (0 pts) Impaired Gait No (0 pts) Mobility Assist Device Used No (0 pt) Altered Elimination No (0 pt) Score/Fall Risk Level 0 - 2 = Low Risk Oriented to surroundings, Maintained a safe environment, Educated pt \T\ family on fall prevention, incl call for assistance when getting out of bed. Abuse screen: Denies threats or abuse. Nutritional screening: No deficits noted. Tuberculosis screening: No symptoms or risk factors identified. Assessment: 20:02 Reassessment: Patient appears in no apparent distress at this time. Patient and/or jb4 family updated on plan of care and expected duration. Pain level reassessed. Patient is alert, oriented x 3, equal unlabored respirations, skin warm/dry/pink. 21:30 Reassessment: Patient appears in no apparent distress at this time. Patient and/or jb4 family updated on plan of care and expected duration. Pain level reassessed. Patient is alert, oriented x 3, equal unlabored respirations, skin warm/dry/pink. 22:54 Reassessment: Patient appears in no apparent distress at this time. Patient and/or jb4 family updated on plan of care and expected duration. Pain level reassessed. Patient is alert, oriented x 3, equal unlabored respirations, skin warm/dry/pink. d/c pending completion of IV fluids. 23:39 Reassessment: Patient appears in no apparent distress at this time. No changes from jb4 previously documented assessment. Patient is alert, oriented x 3, equal unlabored respirations, skin warm/dry/pink. Reassessment:. Vital Signs: 18:47 Weight 81.65 kg; Height 5 ft. 9 in. ; Pain 8/10; vc1 19:04 BP 147 / 109; Pulse 113; Resp 18; Temp 98.2; Pulse Ox 100% ; vc1 20:02 BP 155 / 112; Pulse 103; Resp 16; Pulse Ox 97% on R/A; jb4 22:54 BP 150 / 80; Pulse 72; Resp 16; Pulse Ox 100% on R/A; jb4 18:47 Body Mass Index 26.58 (81.65 kg, 175.26 cm) vc1 18:47 Pain Scale: Adult vc1 ED Course: 18:38 Patient arrived in ED. ra3 18:45 See Oden PA is PHCP. cp 18:45 Radha Finnegan MD is Attending Physician. cp 18:48 Triage completed. vc1 18:49 Arm band placed on right wrist. vc1 19:27 Basic Metabolic Panel Sent. jb4 19:27 LFT's Sent. jb4 19:27 CBC with Diff Sent. jb4 19:27 Magnesium Sent. jb4 19:27 Troponin HS Sent. jb4 19:55 XRAY Chest (1 view) In Process Unspecified. EDMS 20:22 Meek Nuñez MD is Attending Physician. cp 21:56 CT Chest For PE Angio In Process Unspecified. EDMS 21:59 CT Abd/Pelvis - IV Contrast Only In Process Unspecified. EDMS 22:44 Steve Cordova MD is Referral Physician. cp 23:39 Patient has correct armband on for positive identification. Bed in low position. Call jb4 light in reach. Side rails up X 1. Provided Education on: discharge instructions.. 23:39 No provider procedures requiring assistance completed. IV discontinued, intact, jb4 bleeding controlled, No redness/swelling at site. Pressure dressing applied. Administered Medications: 19:38 Drug: Ondansetron IVP 4 mg IVP once; over 2 minutes Route: IVP; Site: right antecubital;jb4 20:00 Follow up: Response: No adverse reaction; Marked relief of symptoms jb4 19:38 Drug: Famotidine IVP 20 mg IVP once; dilute with 10 mL 0.9% NaCl; give over 2 minutes jb4 Route: IVP; Site: right antecubital; 22:54 Follow up: Response: No adverse reaction jb4 19:38 Drug: GI Cocktail without - (Maalox PO 30 ml, Lidocaine Mucous Membrane 2 % 15 jb4 ml) PO once Route: PO; 20:00 Follow up: Response: No adverse reaction; No change in condition jb4 20:02 Drug: morphine IVP or IV 4 mg IVP once over 4 mins Route: IVP; Infused Over: 4 mins; jb4 Site: right antecubital; 20:30 Follow up: Response: No adverse reaction; Pain is unchanged, physician notified jb4 21:01 Drug: fentaNYL (PF) IVP 50 mcg IVP once Route: IVP; Site: right antecubital; 21:30 Follow up: Response: No adverse reaction; Marked relief of symptoms; Pain is decreased; jb4 RASS: Alert and Calm (0) 21:07 Drug: NS 0.9% IV 1000 ml IV at 1 bolus Per protocol; to be given as a bolus over 60 jb4 minutes Route: IV; Rate: 1 bolus; Site: right antecubital; 23:41 Follow up: Response: No adverse reaction; Marked relief of symptoms; IV Status: jb4 Completed infusion; IV Intake: 1000ml 22:31 Drug: Ketorolac IVP 15 mg IVP once Route: IVP; Site: right antecubital; jb4 22:51 Follow up: Response: No adverse reaction; Marked relief of symptoms jb4 22:31 Drug: Promethazine IVP 25 mg IVP once Route: IVP; Site: right antecubital; jb4 23:41 Follow up: Response: No adverse reaction; Marked relief of symptoms jb4 Medication: 18:50 VIS not applicable for this client. vc1 Intake: 23:41 IV: 1000ml; Total: 1000ml. jb4 Outcome: 22:45 Discharge ordered by MD. cp 23:39 Discharged to home ambulatory, jb4 23:39 Condition: stable 23:39 Discharge instructions given to patient, Instructed on discharge instructions, follow up and referral plans. medication usage, Demonstrated understanding of instructions, follow-up care, medications, Prescriptions given X 2, 23:42 Patient left the ED. jb4 Signatures: Dispatcher [employer] EDAngela Barr RN RN See Hansen PA PA cp Bryson, James, RN RN jb4 Nydia Knox RN RN vc1 Farzana Love ra3 Corrections: (The following items were deleted from the chart) 18:49 18:48 PSHx: Appendectomy; vc1 vc1 22:54 22:53 Response: No adverse reaction; Pain is unchanged, physician notified jb4 jb4 23:39 22:54 Reassessment: Patient appears in no apparent distress at this time. Patient jb4 and/or family updated on plan of care and expected duration. Pain level reassessed. Patient is alert, oriented x 3, equal unlabored respirations, skin warm/dry/pink. jb4
[2024-06-18 00:18] VITALS: TEMP 98.2
[2024-06-18 00:21] VITALS: BP 150/80; O2SAT 100
--- NOTE | 2024-06-21 10:54 | EKG ---
Test Date: 2024-06-17 Test Time: 19:20:04 Heel Wheeler: [id number] MEASUREMENT RESULTS: Intervals: Rate: 83 MA: 158 QRSD: 84 QT: 370 QTc: 434 [place]: P: 57 MA: 158 QRS: 78 T: 46 INTERPRETIVE STATEMENTS: Normal sinus rhythm Normal ECG Compared to ECG 04/11/2024 22:33:24 ST (T wave) deviation no longer present Electronically Signed On 06-21-24 10:50:30 COMPUTER BOOKKEEPER by Stiven Quikc
== END 2024-06-17 23:42 | disposition home or self-care (01) ==
LOC: ER 18:36
DX: R07.9 Chest pain, unspecified (principal); R10.11 Right upper quadrant pain
CPT/HCPCS: 36415; 71045; 71275; 74177; 80048; 80076; 83690; 83735; 84484; 85025; 93005; 96361; 96374; 96375; 99284; J2405; J2550; J3010; J7030; Q9967

== ENCOUNTER 2024-08-10 17:35 | Emergency (ER) | payer SELFPAY ==
--- NOTE | 2024-08-10 18:32 | RAD REPORT ---
Procedure: Chest Single View HISTORY: Chest pain COMPARISON: June 2024 FINDINGS: The lungs appear clear of acute infiltrate. No significant pleural effusion noted. The heart is normal size. IMPRESSION: No acute abnormality is displayed.
[2024-08-10] MEDS ORDERED: LIDOCAINE VISCOUS 2% 10ML ORAL SOLN ONE (19:29)
[2024-08-10] MEDS ORDERED: KETOROLAC 30 MG/ML INJ ONE (19:29)
[2024-08-10] MEDS ORDERED: MAGNES/ALUMIN/SIMET 30ML UCUP ONE (19:29)
[2024-08-10 19:54] LABS: Influenza A Ag Negative; Influenza B Ag Negative; SARS-CoV-2 Antigen Rapid Res Negative (Negative)
--- NOTE | 2024-08-10 21:09 | EDPHYS ---
Physician Documentation [facility] Name: Felicia Cheung Age: 38 yrs Sex: Female : 1985 Arrival Date: 08/10/2024 Time: 17:35 Bed IW2 Private MD: ED Physician Jarrell Amato HPI: 08/10 21:13 This 38 yrs old Female presents to ER via Ambulatory with complaints of Sore Throat, kb Cough, Leg Pain. 21:14 Patient is a 38-year-old female who presents for sore throat, dry cough, headache, kb bilateral thigh pain and lung/right breast pain that started 9 days ago. Denies fever. States symptoms are not improving so she wanted to get checked out because she has an immunocompromise child. 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 - Infectious Disease History:: Denies. - Social history:: Smoking status: Patient denies any tobacco usage or history of. ROS: 21:12 Constitutional: As per HPI kb Exam: 21:12 Constitutional: This is a well developed, well nourished patient who is awake, alert, kb and in no acute distress. Head/Face: Normocephalic, atraumatic. ENT: Moist Mucous membranes Cardiovascular: Regular rate Respiratory: Respirations even and unlabored. No increased work of breathing. Talking in full sentences Abdomen/GI: Soft, non-tender. No distention Skin: Warm, dry with normal turgor. Normal color. MS/ Extremity: Pulses equal, no cyanosis. Neurovascular intact. Full, normal range of motion. Neuro: Awake and alert, GCS 15, oriented to person, place, time, and situation. Vital Signs: 17:50 BP 148 / 102; Pulse 85; Resp 18; Temp 97.8(TE); Pulse Ox 100% on R/A; Weight 81.65 kg; ld1 Height 5 ft. 9 in. ; Pain 0/10; 17:50 Body Mass Index 26.58 (81.65 kg, 175.26 cm) ld1 17:50 Pain Scale: Adult ld1 MDM: 17:39 Medical Screening Exam initiated kb 21:13 Differential Diagnosis: Influenza Upper Respiratory Infection Pharyngitis Viral kb Syndrome Other GERD, strep. Data reviewed: vital signs, nurses notes. I considered the following discharge prescriptions or medication management in the emergency department I discussed and recommended Over The Counter medications, Antibiotics: At this time antibiotics are not recommended. Counseling: I had a detailed discussion with the patient and/or guardian regarding the historical points, exam findings, and any diagnostic results supporting the discharge/admit diagnosis, lab results, radiology results, the need for outpatient follow up, a family practitioner, to return to the emergency department if symptoms worsen or persist or if there are any questions or concerns that arise at home. 08/10 17:57 Order name: Group A Streptococcus Rapid; Complete Time: 20:04 kb 08/10 17:57 Order name: COVID-19 Ag + Flu A+B Ag; Complete Time: 20:04 kb 08/10 19:48 Order name: Throat Culture [facility] 08/10 17:57 Order name: Chest Single View XRAY; Complete Time: 18:35 kb Administered Medications: 19:35 Drug: Ketorolac IM 30 mg IM once Route: IM; Site: left deltoid; bm8 21:07 Follow up: Response: No adverse reaction ap3 19:35 Drug: GI Cocktail without - (Maalox PO 30 ml, Lidocaine Mucous Membrane 2 % 15 bm8 ml) PO once Route: PO; 21:07 Follow up: Response: No adverse reaction ap3 Disposition Summary: 08/10/24 21:09 Discharge Ordered Notes: Location: Home kb Condition: Stable kb Diagnosis - Viral infection, unspecified kb Followup: kb - With: Emergency Department - When: As needed - Reason: Worsening of condition Followup: kb - With: Private Physician - When: 2 - 3 days - Reason: Recheck today's complaints, Continuance of care, Re-evaluation by your physician Discharge Instructions: - Discharge Summary Sheet kb - Viral Illness, Adult kb Forms: - Medication Reconciliation Form kb - Antibiotic Education kb - Prescription Opioid Use kb - Patient Portal Instructions kb - Leadership Thank You Letter kb Signatures: Dispatcher [employer] EDElisabet Lawrence, Kourtney Morrow RN RN ld1 Satish Barkley, RN RN bm8 Leann Espinoza RN ap3 Corrections: (The following items were deleted from the chart) 17: 17:58 Group A Streptococcus Rapid Sc+I.LAB.BRZ ordered. EDMS EDMS : 17:58 COVID-19 Ag + Flu A+B Ag+I.LAB.BRZ ordered. EDMS EDMS : 17:58 Chest Single View+RAD.RAD.BRZ ordered. EDMS EDMS
--- NOTE | 2024-08-10 21:09 | ER ---
Nurse's Notes [facility] Name: Felicia Cheung Age: 38 yrs Sex: Female : 1985 Arrival Date: 08/10/2024 Time: 17:35 Bed IW2 Private MD: Diagnosis: Viral infection, unspecified Presentation: 08/10 17:50 Chief complaint: Patient states: Sore throat X 1 week. Dry cough, headache, chest/lung ld1 discomfort, ALEX thigh pain. Coronavirus screen: At this time, the client does not indicate any symptoms associated with coronavirus-19. Ebola Screen: No symptoms or risks identified at this time. Initial Sepsis Screen: Does the patient meet any 2 criteria? No. Patient's initial sepsis screen is negative. Does the patient have a suspected source of infection? No. Patient's initial sepsis screen is negative. Risk Assessment: Do you want to hurt yourself or someone else? Patient reports no desire to harm self or others. Onset of symptoms was August 10, 2024. 17:50 Method Of Arrival: Ambulatory ld1 17:50 Acuity: COMPA 4 ld1 Triage Assessment: 17:50 General: Appears in no apparent distress. uncomfortable, Behavior is cooperative, ld1 anxious. Pain: Denies pain. EENT: Reports pain in thorat. Neuro: Level of Consciousness is awake, alert, obeys commands, Oriented to person, place, time, situation. Cardiovascular: Capillary refill < 3 seconds Patient's skin is warm and dry. Respiratory: Airway is patent Respiratory effort is even, unlabored. GI: Abdomen is flat, non-distended. : No signs and/or symptoms were reported regarding the genitourinary system. Derm: No signs and/or symptoms reported regarding the dermatologic system. Musculoskeletal: No signs and/or symptoms reported regarding the musculoskeletal system. 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 - Infectious Disease History:: Denies. - Social history:: Smoking status: Patient denies any tobacco usage or history of. Screenin:12 [facility] ED Fall Risk Assessment (Adult) History of falling in the last 3 months, ap3 including since admission No falls in past 3 months (0 pts) Confusion or Disorientation No (0 pts) Intoxicated or Sedated No (0 pts) Impaired Gait No (0 pts) Mobility Assist Device Used No (0 pt) Altered Elimination No (0 pt) Score/Fall Risk Level 0 - 2 = Low Risk Oriented to surroundings, Maintained a safe environment, Educated pt \T\ family on fall prevention, incl call for assistance when getting out of bed, Assessed \T\ reinforced patient's understanding of fall precautions, Hourly rounding (assess needs \T\ fall precautionary measures) done, Used ambulatory aids as needed (educated on \T\ assisted with). Abuse screen: Denies threats or abuse. Nutritional screening: No deficits noted. Tuberculosis screening: No symptoms or risk factors identified. Assessment: 21:07 Reassessment: Patient and/or family updated on plan of care and expected duration. Pain ap3 level reassessed. Patient is alert, oriented x 3, equal unlabored respirations, skin warm/dry/pink. Vital Signs: 17:50 BP 148 / 102; Pulse 85; Resp 18; Temp 97.8(TE); Pulse Ox 100% on R/A; Weight 81.65 kg; ld1 Height 5 ft. 9 in. ; Pain 0/10; 17:50 Body Mass Index 26.58 (81.65 kg, 175.26 cm) ld1 17:50 Pain Scale: Adult ld1 ED Course: 17:38 Patient arrived in ED. mr 17:39 Elisabet Coley FNP-C [facility]. kb 17:39 Jarrell Amato MD is Attending Physician. kb 17:50 Arm band placed on right wrist. ld1 17:53 Triage completed. ld1 18:28 Chest Single View XRAY In Process Unspecified. EDMS 19:31 COVID-19 Ag + Flu A+B Ag Sent. rv1 19:31 Group A Streptococcus Rapid Sent. rv1 21:12 No provider procedures requiring assistance completed. Patient did not have IV access ap3 during this emergency room visit. 21:13 Patient has correct armband on for positive identification. Provided Education on: ap3 discharge education. Administered Medications: 19:35 Drug: Ketorolac IM 30 mg IM once Route: IM; Site: left deltoid; bm8 21:07 Follow up: Response: No adverse reaction ap3 19:35 Drug: GI Cocktail without - (Maalox PO 30 ml, Lidocaine Mucous Membrane 2 % 15 bm8 ml) PO once Route: PO; 21:07 Follow up: Response: No adverse reaction ap3 Medication: 21:13 VIS not applicable for this client. ap3 Outcome: 21:09 Discharge ordered by MD. villalobos 21:13 Discharged to home ambulatory, ap3 21:13 Condition: good 21:13 Discharge instructions given to patient, Instructed on discharge instructions, follow up and referral plans. Demonstrated understanding of instructions, follow-up care, 21:13 Patient left the ED. ap3 Signatures: Dispatcher [employer] EDMS Elisabet Coley, ORGANIZATIONAL CONSULTANT-C ORGANIZATIONAL CONSULTANT-CkJillian Newell, Reg Reg mr Leann Espinoza, RN RN ap3 Kourtney Delcid RN RN ld1 Criselda Núñez rv1 Satish Barkley RN RN bm8
[2024-08-10 21:52] VITALS: BP 148/102; TEMP 97.8; O2SAT 100
== END 2024-08-10 21:13 | disposition home or self-care (01) ==
LOC: ER 17:35
DX: B34.9 Viral infection, unspecified (principal); Z11.52 Encounter for screening for COVID-19
CPT/HCPCS: 36415; 71045; 87070; 87428; 96372; 99284